=== PATIENT | female | born 1985 | race Caucasian/White ===

== ENCOUNTER 2024-09-15 00:23 | Outpatient (CLI) | payer MEDICAID, SELFPAY ==
--- OUTSIDE RECORDS SUMMARY | 2024-09-15 00:24 | XMS_ITS | Encounter Summary ---
Author Organization [facility] Address [address] [place] [address] Care Team Providers Care Non Profit Job Titles Name Role Phone Mary Montana MD Unavailable Livier Valdez NP Primary Care Provider [phone] Encounter Details Date Type Department Care Team (Late st Contact Info) Description 03/18/2024 17:45 EDT Phlebotomy Only [facility] - Outpatient Phlebotomy Drawing [address] [place] [address] Lab, [facility] Op Phlebotomy Abnormal level of hormones in specimens from oth org/tiss; Vitamin D deficiency disease Social History Tobacco Use Types Packs/Day Years Used Date Smoking Tobacco: Former Smokeless Tobacco: Never Alcohol Use Standard Drinks/Week Comments Not Currently 0 (1 standard drink = 0.6 oz pur e alcohol) 1 x pr wk prior to Hunger Vital Sign Answer Date Recorded Worried About Running Out of Food in the Last Ye ar Never true 11/11/2019 Ran Out of Food in the Last Year Never true 11/11/2019 PRAPARE - Transportation Answer Date Re corded Lack of Transportation (Medical) No 11/11/2019 Lack of Transportation (Non-Medical) No 11/11/2019 Interpersonal Safety Answer Date Record ed Physically Hurt Never 03/12/2020 Verbally Threaten Not on file 03/12/2020 Comments No Sex and Gender Information Value Date Recorded Sex Assigned at Not on file Legal Sex Female 18:26 EST Gender Identity Female 10/03/2019 12:19 EST Sexual Orientation Not on file documented as of this encounter Functional Status * Are you deaf or do you have serious difficulty hearing? Answer Date of Assessment Author No 06/20/2023 8:46 EST Parish Edmonds RN * Because of a physical, mental, or emotional condition, does this person have difficulty doing errands alone such as visiting a doctor's office or shopping? Answer Date of Assessment Author No 05/04/2019 14:18 EDT documented as of this encounter Mental Status * Because of a physical, mental, or emotional condition, does this person have serious difficulty concentrating, remembering, or making decisions? Answer Entry Date Author No 05/04/2019 14:18 EDT documented in this encounter Plan of Treatment Not on file documented as of this encounter Procedures Procedure Name Priority Date/Time Associated Diagnosis Comments VITAMIN D (25,OH) Routine 03/18/2024 16: 46 EDT Vitamin D deficiency disease T3 FREE Routine 03/18/2024 16:46 EDT Abnormal level of hormones in specimens from ot org/tiss TSH Routine 03/18/2024 16:46 EDT Abnormal level of hormones in specimens from ot org/tiss T4 FREE Routine 03/18/2024 16:46 EDT Abnormal level of hormones in specimens from ot org/tiss documented in this encounter Results * VITAMIN D (25,OH) (03/18/2024 16:46 EDT) 25OH Vitamin D Tot 33 30 - 100 ng/mL 03/18/2024 17:54 EDT [facility] Blood VENOUS BLOOD / Unknown Venipuncture / Unknown 03/18/2024 16:46 EDT 03/18/2024 17:07 EDT us Livier Valdez NP CHEMISTRY & BLOOD GAS ORDERABLES Final Result [facility] [address] [place] [address] * T3 FREE (03/18/2024 16:46 EDT) T3, Free 3.8 2.8 - 5.3 pg/mL 03/18/2024 21:[address] [facility] Blood VENOUS BLOOD / Unknown Venipuncture / Unknown 03/18/2024 16:46 EDT 03/18/2024 17:07 EDT us Livier Valdez CAREER AND TRANSITION TEACHER CHEMISTRY & BLOOD GAS ORDERABLES Final Result [facility] [address] [place] [address] * T4 FREE (03/18/2024 16:46 EDT) T4, Free 1.0 0.8 - 2.2 ng/dL 03/18/2024 17:54 EDT [facility] Blood VENOUS BLOOD / Unknown Venipuncture / Unknown 03/18/2024 16:46 EDT 03/18/2024 17:07 EDT us Livier Valdez CAREER AND TRANSITION TEACHER CHEMISTRY & BLOOD GAS ORDERABLES Final Result [facility] [address] [place] [address] * TSH (03/18/2024 16:46 EDT) Pathologist [facility] TSH 1.13 0.47 - 4.68 mIU/L 03/18/2024 18:07 EDT [facility] Blood VENOUS BLOOD / Unknown Venipuncture / Unknown 03/18/2024 16:46 EDT 03/18/2024 17:07 EDT Narrative [facility] - 03/18/2024 18:07 EDT The results of this assay can be falsely lowered due to the consumption of Biotin. us Livier Valdez CAREER AND TRANSITION TEACHER CHEMISTRY & BLOOD GAS ORDERABLES Final Result [facility] [address] [place] [address] documented in this encounter Visit Diagnoses Diagnosis Abnormal level of hormones in specimens from oth org/tiss Vitamin D deficiency disease Unspecified vitamin D deficiency documented in this encounter Care Teams Non Profit Job Titles Relationship Specialty Start Date End Date Livier Valdez, MARLINE [address] [place], [place] [address] PCP - General Family Medicine - Primary Care 10/28/22 Mary Montana MD [address] [place] [phone] 03/25/19 documented as of this encounter
--- OUTSIDE RECORDS SUMMARY | 2024-09-15 00:24 | XMS_ITS | Referral Summary ---
Author Organization [facility] Address [address] [place] [address] Care Team Providers Care Associate Professor Of History Name Role Phone Mary Montana MD Unavailable Livier Valdez ATMOSPHERIC TECHNICIAN Primary Care Provider [phone] Encounters Date Type Department Care Team Description 08/26/2024 Documentation Visit [facility] [address] [place] [address] Brynn Marte, ZEUS 07/14/2024 16:00 EST Procedure visit [facility] [address] [place] [address] Harsh Khan MD Right wrist pain (Primary Dx) from Last 3 Months Allergies Active Allergy Reactions Criticality Noted Date Comments Amantadine 03/17/2019 Other reaction(s): rash and fever Amitriptyline 03/17/2019 Other reaction(s): drowsiness Bupropion Other (See Comments) Medium 06/23/2023 Other Reaction(s): Other (See Comments) Doxycycline Other (See Comments) 06/12/2023 Vasculitis Penicillin 03/17/2019 Other reaction(s): hives/fever Medications lactobacillus rhamnosus, GG, (CULTURELLE) 10 billion cell capsule Take 1 Capsule by mouth daily. Active methylphenidate HCl (RITALIN;METHYL IN) 5 mg tablet Take 2 Tablets by mouth daily. Patient reports 20mg Active hydrOXYzine (ATARAX) 10 mg tablet Take 1 Tablet by mouth 3 times daily as needed for Itching. Active omeprazole (PRILOSEC) 20 mg capsule Take 1 Capsule by mouth daily. Take while on prednisone 15 Capsule 3 Active Additional Information Patient not taking.Reported on 10/01/2023 predniSONE (DELTASONE) 10 mg tablet 6tab/d x 5d, 5tab/d x 5days, 4tab/d x 5days, 3tab/d x 5days, 2tab/d x 5 days, 1tab/d x 5days then stop. 105 Tablet 3 Active Additional Information Patient not taking.Reported on 10/01/2023 Calcium-Choleca lciferol, D3, (CALCIUM 500 + D) 500 mg-10 mcg (400 unit) tablet Take 2 Tablets by mouth daily. 60 Tablet 11 3 Active Additional Information Patient not taking.Reported on 11/05/2023 sulfamethoxazol e-trimethoprim (BACTRIM/CO-TRI MOXAZOLE DS) 800-160 mg per tablet Take 1 Tablet by mouth 2 times daily. 42 Tablet 3 Active Additional Information Patient not taking.Reported on 10/01/2023 Multivitamins with Minerals tablet tablet Take 1 Tablet by mouth daily. Active magnesium oxide (MAG-OX) 400 mg (241.3 mg magnesium) tablet Take 1 Tablet by mouth daily. Active Active Problems Problem Noted Date Diagnosed Date Eczema 10/30/2022 Obesity 01/01/2022 Hyperglycemia 04/17/2021 Fatty (change of) liver, not elsewhere classifie d 12/13/2020 Herpes zoster oticus 11/15/2019 Supervision of high risk in first trim olga 11/15/2019 Overview (11/22/2019): Datin06/09/2020, by Ultrasound 1. AMA-interested in genetic testing (both cell free DNA based testing and Carrier screen) 2. IVF (Pt has BTL) 3. Prior PPROM at 35 weeks followed by a 38 week delivery in second - She declines MFM consult or progesterone. Plan to check CL with 20 week us. 4. Cervical procedure (Laser vaporization of cervix)- check CL with 20 week u/s. She declines check CL prior to 20 weeks 5. H/o Abdominoplasty-2012 6. Obesity (BMI 33)-she declines nutrition consult since she already had one. Early 1hr PC. 7. Subchorionic hemorrhage to the left of the gestational sac measuring 2.1cm at 10 weeks, asymptomatic. IVAP labs: X blood type, antibody scr X; X/X/X: Hep B X; HIV X; RPR X; Hep C X; RX; VX; Urine C&S X; UA X; GC/CT X; last pap X [ ] reviewed by provider Pertinent positives: [ x ] PreE risks reviewed, start baby ASA at 12 weeks Genetic Screening: [x ] cfDNA (ordered) Kit and Paperwork sent to the lab. 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 Hyperlipidemia 01/12/2013 Social History Tobacco Use Types Packs/Day Years Used Date Smoking Tobacco: Former Smokeless Tobacco: Never Tobacco Cessation:Counseling Given: Not Answered Alcohol Use Standard Drinks/Week Comments Not Currently [...] 12:19 EST Sexual Orientation Not on file Last Filed Vital Signs Vital Sign Reading Time Taken Comments Blood Pressure 132/79 06/14/2024 1130 EST Pulse 89 06/14/2024 0917 EST Temperature 36.8 ??C (98.3 ??F) 06/14/2024 0917 EST Respiratory Rate 18 06/14/2024 0917 EST Oxygen Saturation 97% 06/14/2024 1000 EST Inhaled Oxygen Concentration - - Weight 90.7 kg (200 lb) 06/20/2023 0848 EST Height 165.1 cm (5' 5) 06/16/2023 1730 EST Body Mass Index 33.28 06/16/2023 1730 EST Functional Status * Are you deaf or do you have serious difficulty hearing? Answer Date of Assessment Author No 03/21/2024 15:24 EDT Me patricia Mcdonald RN * Because of a physical, mental, or emotional condition, does this person have difficulty doing errands alone such as visiting a doctor's office or shopping? Answer Date of Assessment Author No 05/04/2019 14:18 EDT Mental Status * Because of a physical, mental, or emotional condition, does this person have serious difficulty concentrating, remembering, or making decisions? Answer Entry Date Author No 05/04/2019 14:18 EDT Plan of Treatment Not on file Medical Devices Implanted Type Area Practice Or Student Teacher Device Identifier Shelf Expiration Date Model / Serial / Lot Mirena Iud-Mr Safe Description:Non metallic per [employer]; RD 01/23/24 Procedures Procedure Name Priority Date/Time Associated Diagnosis Comments EMG/NERVE CONDUCTION STUDY Routine/Next Available 07/14/2024 16:00 EST Right wrist pain HEPATITIS C AB W REFLEX TO HCV RNA BY PCR Routine 06/17/2023 11:27 EST Rash from Last 3 Months or Most Recently Relevant to Health Maintenance Results * EMG/NERVE CONDUCTION STUDY (07/14/2024 16:00 EST) Narrative [facility] - 07/14/2024 16:00 EST Harsh Khan MD ? 07/14/2024 16:19 [facility] Clinical Neurophysiology Nerve Conduction and Electromyography Report PATIENT NAME: Jonathon Hall PATIENT : 1985 PCP: ??Livier Valdez DATE OF SERVICE: 07/14/2024 History: Jonathon Hall is a 39 y.o. female who presents on referral by LAKSHMI Hernandez* for evaluation of right hand symptoms. She describes a dull aching pain with use of the right wrist, worse with lifting heavy objects such as participating in [employer] games. No numbness or tingling in the hand. Exam: Limbs studied were warmed if necessary with moist heat, and skin temperature of the hands was measured at 33 deg C before starting the study. Motor: Normal bulk, tone and strength in the right hand and arm DTRs: Trace right brachioradialis, biceps and triceps Sensation: Intact pinprick in the right hand and arm Electrodiagnostic Findings: Nerve Conduction: -All nerves examined were normal including the right median sensory and motor responses, right ulnar sensory and motor responses and right radial superficial sensory response. EMG: -All muscles examined were normal including the right biceps, triceps, pronator teres, extensor digitorum communis and first dorsal interosseous For waveforms/values/tables of EMG/nerve conduction study please see accompanying scanned document in the scans tab in EMR. Electrodiagnostic Impression: - This study was normal. ??There is no electrodiagnostic evidence of right cervical radiculopathy, or median or ulnar neuropathy. Harsh Khan MD Eduin Hicks PA-C PROCEDURE/MINOR SURGICA L ORDERABLES Final Result [facility] * HEPATITIS C AB W REFLEX TO HCV RNA BY PCR (06/17/2023 11:27 EST) Hep C Antibody Negative Negative 06/17/2023 13:17 EST [facility] Blood VENOUS BLOOD / Unknown Venipuncture / Unknown 06/17/2023 11:27 EST 06/17/2023 11:54 EST Gary Virgen MD CHEMISTRY & BLOOD GAS ORDERA BLES Final Result [facility] [address] [place] [address] from Last 3 Months or Most Recently Relevant to Health Maintenance Insurance MEDICAID [facility] [place] Advance Directives For more information, please contact: [phone] * Full Code (Latest Code Status on File) Date Activated Date Inactivated Comments 09/17/2019 9:27 09/19/2019 2:04 Question Answer Comments Reason for decision includes: Full code consistent with overall plan of care Who participated in the discussion? Not Discusse d Care Teams Associate Professor Of History Relationship Specialty Start Date End Date Livier Valdez, ATMOSPHERIC TECHNICIAN [address] [place] [address] PCP - General Family Medicine - Primary Care 10/28/22 Mary Montana MD [address] [place] [phone] 03/25/19
--- OUTSIDE RECORDS SUMMARY | 2024-09-15 00:24 | XMS_ITS | Encounter Summary ---
Author Organization [facility] Address [address] [place] [address] Care Team Providers Care Echocardiograph Tech Name Role Phone Mary Montana MD Unavailable Livier Valdez DIRECTOR OF RADIO SERVICES Primary Care Provider [phone] Encounter Details Date Type Department Care Team (Late st Contact Info) Description 03/18/2024 Community Orders [facility] [address] [place] [address] Livier Valdez, DIRECTOR OF RADIO SERVICES [address] [place] [address] Abnormal level of hormones in specimens from oth org/tiss (Primary Dx); Vitamin D deficiency disease Social History Tobacco [...] on file documented as of this encounter Results * VITAMIN D (25,OH) (03/18/2024 16:46 EDT) 25OH Vitamin D Tot 33 30 - 100 ng/mL 03/18/2024 17:54 EDT [facility] Blood VENOUS BLOOD / Unknown Venipuncture / Unknown 03/18/2024 16:46 EDT 03/18/2024 17:07 EDT us Livier Valdez DIRECTOR OF RADIO SERVICES CHEMISTRY & BLOOD GAS ORDERABLES Final Result Performing Organization Address [facility] Co de Phone Number [facility] [address] [place] [address] * T3 FREE (03/18/2024 16:46 EDT) T3, Free 3.8 2.8 - 5.3 pg/mL 03/18/2024 21:51 EDT [facility] Blood VENOUS BLOOD / Unknown Venipuncture / Unknown 03/18/2024 16:46 EDT 03/18/2024 17:07 EDT us Livier Valdez DIRECTOR OF RADIO SERVICES CHEMISTRY & BLOOD GAS ORDERABLES Final Result [facility] [address] [place], [place] [address] * T4 FREE (03/18/2024 16:46 EDT) T4, Free 1.0 0.8 - 2.2 ng/dL 03/18/2024 17:54 EDT [facility] Blood VENOUS BLOOD / Unknown Venipuncture / Unknown 03/18/2024 16:46 EDT 03/18/2024 17:07 EDT us Livier Valdez DIRECTOR OF RADIO SERVICES CHEMISTRY & BLOOD GAS ORDERABLES Final Result Performing Organization Address [facility] Co de Phone Number [facility] [address] [place] [address] * TSH (03/18/2024 16:46 EDT) Pathologist [facility] [place] TSH 1.13 0.47 - 4.68 mIU/L 03/18/2024 18:07 EDT [facility] Blood VENOUS BLOOD / Unknown Venipuncture / Unknown 03/18/2024 16:46 EDT 03/18/2024 17:07 EDT Narrative [facility] - 03/18/2024 18:07 EDT The results of this assay can be falsely lowered due to the consumption of Biotin. us Livier Valdez DIRECTOR OF RADIO SERVICES CHEMISTRY & BLOOD GAS ORDERABLES Final Result Performing Organization Address [facility] Co de Phone Number [facility] [address] [place] [phone] documented in this encounter Visit Diagnoses Diagnosis Abnormal level of hormones in specimens from oth org/tiss- Primary Vitamin D deficiency disease Unspecified vitamin D deficiency documented in this encounter Care Teams Echocardiograph Tech Relationship Specialty Start Date End Date Livier Valdez, MARLINE [address] [place] [id number] PCP - General Family Medicine - Primary Care 10/28/22 Mary Montana MD [address] [place] [phone] 03/25/19 documented as of this encounter
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
--- OUTSIDE RECORDS SUMMARY | 2024-09-15 00:24 | XMS_ITS | Encounter Summary ---
Author Organization [facility] Address [address] [place] [address] Care Team Providers Care Traffic Maintenance Officer Name Role Phone Mary Montana MD Unavailable Livier Valdez COMMUNITY SERVICE OFFICER Primary Care Provider [phone] Reason for Visit * Reason Comments Vaginal Bleeding Pt presents with vag inal bleeding. 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 She is currently trying to be a surrogate & had an U/S on Friday that informed her she had retained uterine products. Pt reports she started bleeding yesterday like a normal period. This AM she reports profuse bleeding with passage of a palm-sized clot. Endorses suprapubic cramping & dizziness. Encounter Details Date Type Department Care Team (Late st Contact Info) Description 06/14/2024 9:12 EST - 06/14/2024 13:09 EST Emergency [facility] [place] [facility] [address] [place] [address] Huang Brantley MD [address] [place] [address] Vaginal bleeding (Primary Dx); Endometrial mass Discharge Disposition: Home or Self Care Social [...] EST Inhaled Oxygen Concentration - - Weight - [...] this encounter Discharge Instructions * Discharge Instructions* Huang Brantley MD - 06/14/2024 12:45 EST As we discussed the tissue that you passed has been sent to the pathology department and will be analyzed. This will take some time and may take a few days. It is going to be very important to have your dependency counselor at [facility] or the reproductive specialist in [place] follow-up on these results. We will attempt to call you as well. I have had the heart from today's visit faxed to the GENERAL UTILITY MAINTENANCE REPAIRER clinic at [facility]. I have also asked our radiology team to work on getting a copy of the ultrasound to your reproductive specialist. Please arrange follow-up with one of your GENERAL UTILITY MAINTENANCE REPAIRER clinicians as soon as possible. Return to the ER for any worsening such as heavy bleeding more than 2 pads an hour for 2 hours in arow feeling lightheaded, severe abdominal pain, or fevers. documented in this encounter Medications at Time [...] Means Destination Comment s Home or Self Group Home documented in this encounter ED Notes * Huang Brantley MD - 06/14/2024 0907 EST Emergency Department Visit Medical Decision Making 39-year-old G4, P3 SAB 1 presenting today with some heavy vaginal bleeding that has improved after passing a piece of soft tissue. Patient notes abnormal uterine ultrasound on Friday at fertility clinic details as below. Bleeding is decreased down to a trickle and is more consistent with her normal chronic vaginal bleeding over the last few months. She does not appear to be anemic. She is hemodynamically normal. Labs notable for a negative screen. Hemoglobin is 13.7. Blood type is O+. Pelvic ultrasound obtained: IMPRESSION 1. Minimally heterogeneous endometrium measures 13.6 mm. No focal lesion detected. 2. Mildly heterogeneous myometrial echotexture, possibly reflecting adenomyomatosis.. Patient continues to feel well. No significant bleeding at this time. Soft tissue has been sent to pathology for further evaluation. Patient was informed that this may take a few days to be finalized. I have spoken with radiology to have the imaging studies transferred to her fertility clinic. She will need to also have the pathology results transferred and will need to talk to medical records about that. See discharge instructions Medical Decision Making Problems Addressed: Endometrial mass: complicated acute illness or injury Vaginal bleeding: complicated acute illness or injury Amount and/or Complexity of Data Reviewed Labs: ordered. Radiology: ordered. Final diagnoses: Vaginal bleeding Endometrial mass Disposition: Discharged Chief complaint: Vaginal bleeding HPI Jonathon Hall is a 39 y.o. SAB 1 at 19 weeks who presents emergency department today for evaluation of vaginal bleeding. Patient states that she has had very irregular periods since an IUD was removed with near constant bleeding. She is currently being evaluated to be a surrogate. She hadan evaluation at a fertility clinic in [place] on Friday that included a saline infusion ultrasound. She reports that this showed an abnormal mass within the endometrium concerning for retained placenta. Patient notes however that her last was 4 years ago. She notes that the dependency counselor performed an endometrial biopsy. This morning the patient reports that her vaginal bleeding became very heavy and then she passed a piece of soft tissue. She has brought that tissue wrapped in paper towels in the [facility]. It is adair-colored flat irregular surface and measures more than 10 cm long by a few centimeters wide. Patient notes that since passing that tissue her bleeding has slowed to a trickle. When she was passing the tissue she had some cramping but that has passed as well. She has not felt lightheaded or dizzy. Shehas not had any fevers or chills. Patient is normally followed by gynecology at [facility]. History was provided by: Patient Patient's pertinent PMH, FH, SH were reviewed and edited as necessary. Nursing notes reviewed. A medical screening exam was performed. Physical Exam BP 132/79 Pulse 89 Temp 36.8 ??C (98.3 ??F) (Oral) Resp 18 SpO2 97% Physical Exam Const: Patient resting comfortably in no acute distress Head: Atraumatic. Normocephalic. Eyes: No injection. Conjunctiva well-perfused. No discharge. Neck: Normal range of motion. Pulm: No respiratory distress. Clear to auscultation bilaterally. CV: Regular rhythm and rate. No murmur rub or gallop. Abdomen: Mildly obese. Soft nontender abdomen. Musculoskeletal: No deformity. Moving all 4 extremities. Neuro: Alert. Speech is clear. Procedures Procedures documented in this encounter Plan of Treatment Not on file documented as of this encounter Procedures Procedure Name Priority Date/Time Associated Diagnosis Comments SURGICAL PATHOLOGY Routine 06/14/2024 12 :00 EST Vaginal bleeding Endometrial mass US PELVIS TRANSVAGINAL COMPLETE STAT 06/14/2024 10:40 EST HOLD GREEN TOP Routine 06/14/2024 9:29 EST HOLD BLUE TOP Routine 06/14/2024 9:29 EST BHCG SCREEN, STAT 06/14/2024 9:28 EST COMPLETE BLOOD COUNT AND DIFFERENTIAL STAT 06/14/2024 9:28 EST TYPE AND SCREEN STAT 06/14/2024 9:28 EST BASIC METABOLIC PANEL (BMP) STAT 06/14/2024 9:28 EST documented in this encounter Results * SURGICAL PATHOLOGY (06/14/2024 12:00 [facility]) Note to Patient The following pathology results have been interpreted by your pathologist and may be available to you before your health provider has had the opportunity to review them. Please allow time for your provider to receive these results and explore management options, if applicable. 06/15/2024 15:53 [facility] Final Diagnosis A. VAGINA, PASSED SOFT TISSUE FRAGMENT: - Features consistent with a benign endometrial polyp with stromal progestin effect and features of early hemorrhagic necrosis. - Negative for hyperplasia and atypia. 06/15/2024 15:53 [facility] Attestation By the signature below, the attending physician certifies that they have 1) personally conducted a gross and/or microscopic examination of the described specimen(s), and/or personally interpreted the results of laboratory testing of the described specimen(s), and 2) personally rendered or confirmed the above diagnosis. 06/15/2024 15:53 [facility] at 1553 Clinical History 39-year-old G4, P3 last 4 years ago. She had abnormal ultrasound on Friday showing irregular mass within the endometrium. Patient passed the mass this morning with vaginal bleeding. She has brought soft tissue mass from home. 06/15/2024 15:53 [facility] Gross Description A. Received fresh and subsequently placed in formalin with, Nahoami L Isabel and, vagina and consists of an irregularly shaped (propeller shaped) portion of nodular, roughened adair-pink to red possible mucosal tissue, 11.0 x 7.5 x 0.9 cm. There is a 2.0 x 1.1 cm superficially disrupted area which is inked black. The cut surface is cystic with a smooth inner lining. Sheriff sections are submitted in A1-A4 (disrupted area in A1). LAKSHMI RUBIN(ASCP) 06/14/2024 12:13 06/15/2024 15:53 [facility] Performing Lab [facility] 12/2023 15:53 [facility] Scanned Images 06/15/2024 15:53 EST [facility] Tissue VAGINAL STRUCTURE / Unknown Collection, Other / Unknown 06/14/2024 12:00 EST 06/14/2024 12:09 EST us Huang Brantley MD PATHOLOGY ORDERABLES Gissell bradley Result [facility] [address] [place] [address] * US PELVIS TRANSVAGINAL COMPLETE (06/14/2024 10:40 EST) Anatomical Region Laterality Modality Pelvis Ultrasound 06/14/2024 11:0 8 EST Impressions 06/14/2024 11:08 EST 1. Minimally heterogeneous endometrium measures 13.6 mm. No focal lesion detected. 2. Mildly heterogeneous myometrial echotexture, possibly reflecting adenomyomatosis.. [id number] Narrative 06/14/2024 11:08 EST US PELVIS TRANSVAGINAL COMPLETE ?? Signs and Symptoms/Comments: ??Vaginal bleeding after biopsy. ??Reportedly with retained products Comparison: 06/12/2023 Technique: Pelvic Ultrasound - Transvaginal approach was performed. FINDINGS: Uterus: ?? Orientation: retroverted Size: 7.2 cm x 5.5 cm x 6.6 cm Findings: Mildly heterogeneous myometrial echotexture, possibly reflecting adenomyomatosis. Cervix: Normal. Endometrium: Findings: Minimally heterogeneous. Thickness: 13.6 mm Premenopausal (per patient) Ovaries: ?? Right ovary: Size: 2.2 cm x 1.4 cm x 1.6 cm. Volume: 2.8 cc. Doppler flow: Color Doppler flow is grossly present, however waveforms were not assessed. Findings: None. Left ovary: Size: 3.0 cm x 1.3 cm x 3.2 cm. Volume: 6.3 cc. Doppler flow: Color Doppler flow is grossly present, however waveforms were not assessed. Findings: None. Cul-de-sac: Trace anechoic free fluid, likely physiologic. Resulting Agency Comment [id number] Procedure Note Charlie Valdez MD - 06/14/2024 US PELVIS TRANSVAGINAL COMPLETE Signs and Symptoms/Comments: Vaginal bleeding after biopsy. Reportedlywith retained products Comparison: 06/12/2023 Technique: Pelvic Ultrasound - Transvaginal approach was performed. FINDINGS: Uterus: Orientation: retroverted Size: 7.2 cm x 5.5 cm x 6.6 cm Findings: Mildly heterogeneous myometrial echotexture, possibly reflectingadenomyomatosis. Cervix: Normal. Endometrium: Findings: Minimally heterogeneous. Thickness: 13.6 mm Premenopausal (per patient) Ovaries: Right ovary: Size: 2.2 cm x 1.4 cm x 1.6 cm. Volume: 2.8 cc. Doppler flow: Color Doppler flow is grossly present, however waveformswere not assessed. Findings: None. Left ovary: Size: 3.0 cm x 1.3 cm x 3.2 cm. Volume: 6.3 cc. Doppler flow: Color Doppler flow is grossly present, however waveformswere not assessed. Findings: None. Cul-de-sac: Trace anechoic free fluid, likely physiologic. IMPRESSION 1. Minimally heterogeneous endometrium measures 13.6 mm. No focal lesiondetected. 2. Mildly heterogeneous myometrial echotexture, possibly reflectingadenomyomatosis.. [id number] us Huang Brantley MD IMG US OB ORDERABLES Gissell l Result * HOLD BLUE TOP (06/14/2024 9:29 EST) Hold Hold 06/14/2024 10:46 EST [facility] Blood VENOUS BLOOD / Unknown Venipuncture / Unknown 06/14/2024 9:29 EST 06/14/2024 9:33 EST us Huang Brantley MD LAB INFO SERVICE AND SUPP ORT & PHONE RESULT Final Result [facility] [address] [place] [address] * HOLD GREEN TOP (06/14/2024 9:29 EST) Hold Hold 06/14/2024 10:46 EST [facility] Blood VENOUS BLOOD / Unknown Venipuncture / Unknown 06/14/2024 9:29 EST 06/14/2024 9:33 EST us Huang Brantley MD LAB INFO SERVICE AND SUPP ORT & PHONE RESULT Final Result Performing Organization Address [facility] Co de Phone Number [facility] [address] [place] [address] * TYPE AND SCREEN (06/14/2024 9:28 EST) Pathologist [facility] ABO O 06/14/2024 10:17 [facility] Rh Factor Positive 06/14/2024 10:17 [facility] Antibody Screen Negative 06/14/2024 10:17 [facility] Specimen Expires: 06/17/2024 @ 23:59 06/14/2024 10:17 [facility] Blood VENOUS BLOOD / Unknown Venipuncture / Unknown 06/14/2024 9:28 EST 06/14/2024 9:32 EST us Huang Brantley MD BLOOD BANK TESTS Edited R esult - Final Performing Organization Address [facility] Co de Phone [facility] BLOOD BANK [address] [place] [address] * BHCG SCREEN, (06/14/2024 9:28 EST) [facility] Beta HCG Qualitative, Negative Negative 06/14/2024 10:42 EST [facility] Blood VENOUS BLOOD / Unknown Venipuncture / Unknown 06/14/2024 9:28 EST 06/14/2024 9:33 EST Huang Brantley MD CHEMISTRY & BLOOD GAS ORD ERABLES Final Result Performing Organization Address [facility]/ZIP Co de Phone [facility] [address] [place] [address] * BASIC METABOLIC PANEL (BMP) (06/14/2024 9:28 EST) Sodium 138 136 - 145 mmol/L 06/14/2024 9:56 [facility] Potassium 4.0 3.5 - 5.0 mmol/L 06/14/2024 9:56 [facility] Chloride 107 96 - 110 mmol/L 06/14/2024 9:56 [facility] CO2 Total 22 22 - 32 mmol/L 06/14/2024 9:56 [facility] Anion Gap 9 5 - 14 mmol/L 06/14/2024 9:56 [facility] Glucose 91 70 - 99 mg/dl 06/14/2024 9:56 [facility] Calcium 9.5 8.5 - 10.5 mg/dL 06/14/2024 9:56 [facility] BUN 11 10 - 26 mg/dL 06/14/2024 9:56 [facility] Creatinine 0.80 0.52 - 1.04 mg/dL 06/14/2024 9:56 [facility] eGFR 95 >60 mL/min/1.73 m2 06/14/2024 9:56 [facility] Blood VENOUS BLOOD / Unknown Venipuncture / Unknown 06/14/2024 9:28 EST 06/14/2024 9:33 EST us Huang Brantley MD CHEMISTRY & BLOOD GAS ORD ERABLES Final Result [facility] [address] [place] [id number] * COMPLETE BLOOD COUNT AND DIFFERENTIAL (06/14/2024 9:28 EST) WBC 8.08 4.00 - 12.40 K/cmm 06/14/2024 9:38 [facility] RBC 5.02 3.86 - 5.04 M/cmm 06/14/2024 9:38 [facility] Hemoglobin 13.7 11.6 - 15.2 g/dL 06/14/2024 9:38 [facility] HCT 41.2 34.9 - 44.4 % 06/14/2024 9:38 [facility] MCV 82 81 - 98 fL 06/14/2024 9:38 [facility] MCH 27.3 26.7 - 33.3 pg 06/14/2024 9:38 [facility] MCHC 33.3 32.1 - 35.9 g/dL 06/14/2024 9:38 [facility] RDW-CV 12.1 <14.7 % 06/14/2024 9:38 [facility] RDW-SD 36.0 <50.4 fl 06/14/2024 9:38 [facility] PLT 302 141 - 377 K/cmm 06/14/2024 9:38 [facility] MPV 9.6 9.5 - 12.7 fL 06/14/2024 9:38 [facility] % Neutrophils 66.2 Not Indicated % 06/14/2024 9:38 [facility] % Lymphocytes 27.2 Not Indicated % 06/14/2024 9:38 [facility] % Monocytes 5.0 Not Indicated % 06/14/2024 9:38 [facility] % Eosinophils 0.9 Not Indicated % 06/14/2024 9:38 [facility] % Basophils 0.5 Not Indicated % 06/14/2024 9:38 [facility] % Immature Grans 0.2 <0.9 % 06/14/2024 9:38 [facility] Absolute Neutrophils 5.35 2.20 - 8.85 K/cmm 06/14/2024 9:38 [facility] Absolute Lymphocytes 2.20 1.09 - 3.30 K/cmm 06/14/2024 9:38 [facility] Absolute Monocytes 0.40 0.10 - 0.80 K/cmm 06/14/2024 9:38 [facility] Absolute Eosinophils 0.07 0.03 - 0.61 K/cmm 06/14/2024 9:38 [facility] ABS Basophils 0.04 0.01 - 0.11 K/cmm 06/14/2024 9:38 [facility] Absolute Immature Grans 0.02 0.00 - 0.06 K/cmm 06/14/2024 9:38 [facility] Type of Differential: Auto 06/14/2024 9:38 [facility] Blood VENOUS BLOOD / Unknown Venipuncture / Unknown 06/14/2024 9:28 EST 06/14/2024 9:33 EST us Huang Brantley MD PACKAGES & DNA PROBE EDGAR AMBROSIO Final Result Performing Organization Address City/State/[facility] Co de Phone Number [facility] [address] [place] [phone] documented in this encounter Visit Diagnoses Diagnosis Vaginal bleeding- Primary Other specified noninflammatory disorder of vagina Endometrial mass Other specified symptom associated with female genital organs documented in this encounter Care Teams Traffic Maintenance Officer Relationship Specialty Start Date End Date Livier Valdez COMMUNITY SERVICE OFFICER [address] [place] [phone] PCP - General Family Medicine - Primary Care 10/28/22 Mary Montana MD [address] [place] [phone] 03/25/19 documented as of this encounter
--- OUTSIDE RECORDS SUMMARY | 2024-09-15 00:24 | XMS_ITS | Clinical Summary ---
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 [address] [place] [address] Harsh Khan MD Right wrist pain (Primary Dx) from Last 3 Months Surgical History Surgery Date Site/Laterality Comments CERVIX SURGERY ABDOMINOPLASTY BREAST ENHANCEMENT SURGERY TUBAL LIGATION ROTATOR CUFF REPAIR Right Medical History Medical History Date Comments Back pain upper back pain, (when did this problem start?) 3 yrs ago Abnormal Pap smear of cervix Adhd Family History Medical History Relation Comments Cancer Maternal Grandmother Coronary Artery Disease Maternal Grandmother Diabetes Maternal Grandmother Cancer Paternal Grandfather Diabetes Paternal Grandmother Cancer Sister Diabetes Sister Relation Status Comments Maternal Grandmother breast canc er, diagnosed in her 60's Paternal Grandfather Lung cancer Paternal Grandmother Sister leukemia Social History Tobacco Use Types Packs/Day Years [...] 12:19 EST Sexual Orientation Not on file Obstetrics History Para Term AB IAB SAB Ectopic Multiple Livin g Live Births 4 3 2 1 1 0 1 0 0 3 3 Date Outcome GA Total Labor Labor/2nd/3rd Weight Sex Type Anes PTL Hetal A1 A5 Name Clin 2003 35w 0d 36h 00m 2637 g (5 lb 13 oz) F Induct ion Epidur al N Livin g Dylan Barron s Complications:Premature rupt ure of membranes (PROM) affecting first Delivery Location:[facility] Comments:Pt with PROM, was induced 4 SAB 2005 Term 38w 0d 12h 00m 3515 g (7 lb 12 oz) F Induct ion Epidur al N Livin g Zakia Moses s Delivery Location:[facility] Comments:6 cm dilated at 38 wks not in labor 2019 Term 39w 3d M Skye davis Delivery Location:[place] Last Filed Vital Signs Vital Sign Reading [...] Body Mass Index 33.28 06/16/2023 1730 EST Plan of Treatment Health Maintenance Due Date Last Done Comments Hepatitis B Vaccine (1 of 3 - 19+ 3-dose series) 03/05 COVID-19 Vaccine (2023- season) 2024 Hepatitis C Screen Completed 06/17/2023 Medical Devices Implanted Type Area Magnetic Tester Device Identifier Shelf Expiration Date Model / Serial / Lot Mirena Iud-Mr Safe Description:Non metallic per [employer]; RD 01/23/24 Procedures Procedure Name Priority Date/Time Associated Diagnosis Comments EMG/NERVE CONDUCTION STUDY Routine/Next Available 07/14/2024 16:00 EST Right wrist pain HEPATITIS C AB W REFLEX TO HCV RNA BY PCR Routine 06/17/2023 11:27 EST Rash from Last 3 Months or Most Recently Relevant to Health Maintenance Results * EMG/NERVE CONDUCTION STUDY (07/14/2024 16:00 EST) Narrative [facility] - 07/14/2024 16:00 EST Harsh Khan MD ? 07/14/2024 16:19 [facility] Clinical Neurophysiology Nerve Conduction and [...] lifting heavy objects such as participating in Criptext games. No numbness or tingling in the [...] median or ulnar neuropathy. Harsh Khan MD us Eduin Hicks PA-C PROCEDURE/MINOR SURGICA L ORDERABLES Final Result [facility] * HEPATITIS C AB W REFLEX TO HCV RNA BY PCR (06/17/2023 11:27 EST) Hep C Antibody Negative Negative 06/17/2023 13:17 EST [facility] Blood VENOUS BLOOD / Unknown Venipuncture / Unknown 06/17/2023 11:27 EST 06/17/2023 11:54 EST us Gary Virgen MD CHEMISTRY & BLOOD GAS ORDERA BLES Final Result [facility] [address] [place] [address] from Last 3 Months or Most Recently Relevant to Health Maintenance Insurance MEDICAID [employer] [facility] Address: [address] [address] MEDICAID [facility] Address: [address] [place] [id number] MEDICAID [facility] Address: [address] [address] Advance Directives For more information, please contact: [phone] * Full Code (Latest Code Status on File) Date Activated Date Inactivated Comments 09/17/2019 9:27 09/19/2019 2:04 Question Answer Comments Reason for decision includes: Full code consistent with overall plan of care Who participated in the discussion? Not Discusse d Care Teams Videotape Recording Engineer Relationship Specialty Start Date End Date Livier Valdez NP [address] [place] [phone] PCP - General Family Medicine - Primary Care 10/28/22 Mary Montana MD [address] [place] [phone] 03/25/19
--- OUTSIDE RECORDS SUMMARY | 2024-09-15 00:24 | XMS_ITS | Encounter Summary ---
Author Organization [facility] Address [address] [place] [address] Care Team Providers Care Stock Clerk Name Role Phone Mary Montana MD Unavailable Livier Valdez FINANCIAL REPORT SERVICE SALES AGENT Primary Care Provider [phone] Encounter Details Date Type Department Care Team (Late st Contact Info) Description 08/26/2024 Documentation Visit [facility] Rehabilitation Therapy [address] [place] [address] Brynn Marte, PT [address] [place] [address] Social History Tobacco Use Types Packs/Day Years [...] 05/04/2019 14:18 EDT documented in this encounter Progress Notes * Brynn Marte, PT - 08/26/2024 1254 EST [facility] Outpatient Rehabilitation Services [phone] Physical Therapy Discharge Not Seen Recently 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 Eason Reporting Period: 12/11/23 Physical Therapy Program to Date: In summary, the program has included: MDT Goal Review: Short-Term Goals Timeframe: 01/01/24 Nahoami will report no more than 2/10 pain at rest to improve concentration. Nahoami will report decreased headache frequency to improve concentration. Long-Term Goals Timeframe: 01/22/24 Nahoami will tolerate chewing a bagel with minimal pain. Discharge Reason: None known Discharge patient at this time. Future therapy will require a new episode of care. documented in this encounter Plan of Treatment Not on file documented as of this encounter Visit Diagnoses Not on filedocumented in this encounter Care Teams Stock Clerk Relationship Specialty Start Date End Date Livier Valdez NP [address] [place] [address] PCP - General Family Medicine - Primary Care 10/28/22 Mary Montana MD [address] [place] [phone] 03/25/19 documented as of this encounter
--- OUTSIDE RECORDS SUMMARY | 2024-09-15 00:24 | XMS_ITS | Encounter Summary ---
Author Organization [facility] Address [address] [place] [address] Care Team Providers Care Delivery Stock Clerk Name Role Phone Mary Montana MD Unavailable Livier Valdez EPIC BEACON ANALYST Primary Care Provider [phone] Reason for Referral * Radiology Services (Routine/Next Available) - Authorization Not Required Specialty Diagnoses / Procedures Referred By Contac t Referred To Contact Diagnoses Nontoxic single thyroid nodule Procedures US THYROID/NECK Livier Valdez NP [address] [place] [address] Phone: tel: fax: [facility] Referral ID Status Reason Start Date Expiration Date Visits Requested Visits Authorized [id number] Authorization Not Required 11/12/2023 1 1 Reason for Visit * Radiology Services (Routine/Next Available) - Authorization Not Required Specialty Diagnoses / Procedures Referred By Contac t Referred To Contact Diagnoses Nontoxic single thyroid nodule Procedures US THYROID/NECK Livier Valdez NP [address] [place] [address] Phone: tel: fax: [facility] Referral ID Status Reason Start Date Expiration Date Visits Requested Visits Authorized [id number] Authorization Not Required 11/12/2023 1 1 Encounter Details Date Type Department Care Team (Latest Contact Info) Description 03/18/2024 16:40 EDT - 03/18/2024 23:59 EDT Hospital Encounter [facility] Ultrasound [address] [place] [address] Nontoxic single thyroid nodule Discharge Disposition: Home or Self Care Social [...] 05/04/2019 14:18 EDT documented in this encounter Medications at Time [...] Discharge Disposition Disposition Code Departure Means Destination Home or Self Care documented in this encounter Plan of Treatment Not on file documented as of this encounter Procedures Procedure Name Priority Date/Time Associated Diagnosis Comments US THYROID/NECK Routine 03/18/2024 17:00 EDT Nontoxic single thyroid nodule documented in this encounter Results * US THYROID/NECK (03/18/2024 17:00 EDT) Anatomical Region Laterality Modality Neck Ultrasound 03/18/2024 17:0 0 EDT Impressions 03/21/2024 8:32 EDT Thyroid nodule as described above. COMMENTS: 1. ?? Recommendations for TI-RADS scores are listed below for reference. (See Reference: Diamond) 2. ?? TI-RADS 1, Benign. 0 points: No fine needle aspiration (FNA) or follow-up ultrasound recommended. 3. ?? TI-RADS 2, Not suspicious. 2 points: No FNA or follow-up ultrasound recommended. 4. ?? TI-RADS 3, Mildly suspicious. 3 points: FNA if equal or greater than 2.5 cm. Follow-up ultrasound if 1.5 to 2.4 cm in 1, 3, and 5 years. 5. ?? TI-RADS 4, Moderately Suspicious. 4-6 points: FNA if equal or greater than 1.5 cm. Follow-up ultrasound if 1 to 1.4 cm in 1, 2, 3, and 5 years. 6. ?? TI-RADS 5, Highly Suspicious. 7 points or greater: FNA if equal or greater than 1 cm. Follow-up ultrasound if 0.5 to 0.9 cm every year for 5 years. REFERENCES: Diamond FN, Seth WD, Khoi EG et al. ACR Thyroid Imaging, Reporting and Data System (TI-RADS): White Paper of the ACR TI-RADS Committee. J Am Lissette Radiol. 2017; 14: 587-595. THIS DOCUMENT HAS BEEN ELECTRONICALLY SIGNED BY MELE NOWAK MD FOR ANY QUESTIONS OR CONCERNS REGARDING THIS REPORT PLEASE CALL [facility] AT [phone] Narrative 03/21/2024 8:32 EDT PROCEDURE INFORMATION: Exam: US Soft Tissue Head and Neck, TI-RADS Exam date and time: 03/18/2024 5:00 PM Age: 39 years old Clinical indication: Nontoxic single thyroid nodule; Condition or disease; Thyroid disorder; Cyst; Additional info: Nontoxic thyroid nodule TECHNIQUE: Imaging protocol: Real-time ultrasound scan of the neck with image documentation. Exam focused on the thyroid. COMPARISON: US THYROID/NECK 09/19/2023 1:12 PM FINDINGS: Right thyroid lobe: Right lobe: 5.7 x 1.8 x 1.8 cm. Left thyroid lobe: Left lobe: 5.7 x 1.6 x 1.7 cm. Hypoechoic solid, well-circumscribed nodule with regular margins, wider than tall in the lower polar region of approximately 0.9 x 0.8 x 0.8 cm. Possible microcalcifications. TIRADS 4 versus 5. Isthmus: Not thickened. Procedure Note Mele Nowak MD - 03/21/2024 PROCEDURE INFORMATION: Exam: US Soft Tissue Head and Neck, TI-RADS Exam date and time: 03/18/2024 5:00 PM Age: 39 years old Clinical indication: Nontoxic single thyroid nodule; Condition or disease; Thyroid disorder; Cyst; Additional info: Nontoxic thyroid nodule TECHNIQUE: Imaging protocol: Real-time ultrasound scan of the neck with image documentation. Exam focused on the thyroid. COMPARISON: US THYROID/NECK 09/19/2023 1:12 PM FINDINGS: Right thyroid lobe: Right lobe: 5.7 x 1.8 x 1.8 cm. Left thyroid lobe: Left lobe: 5.7 x 1.6 x 1.7 cm. Hypoechoic solid, well-circumscribed nodule with regular margins, wider than tall in the lower polar region of approximately 0.9 x 0.8 x 0.8 cm. Possible microcalcifications. TIRADS 4 versus 5. Isthmus: Not thickened. IMPRESSION Thyroid nodule as described above. COMMENTS: 1. Recommendations for TI-RADS scores are listed below for reference. (See Reference: Diamond) 2. TI-RADS 1, Benign. 0 points: No fine needle aspiration (FNA) or follow-up ultrasound recommended. 3. TI-RADS 2, Not suspicious. 2 points: No FNA or follow-up ultrasound recommended. 4. TI-RADS 3, Mildly suspicious. 3 points: FNA if equal or greater than 2.5 cm. Follow-up ultrasound if 1.5 to 2.4 cm in 1, 3, and 5 years. 5. TI-RADS 4, Moderately Suspicious. 4-6 points: FNA if equal or greater than 1.5 cm. Follow-up ultrasound if 1 to 1.4 cm in 1, 2, 3, and 5 years. 6. TI-RADS 5, Highly Suspicious. 7 points or greater: FNA if equal or greater than 1 cm. Follow-up ultrasound if 0.5 to 0.9 cm every year for 5 years. REFERENCES: Capricesler FN, Seth WD, Khoi EG et al. ACR Thyroid Imaging, Reporting and Data System (TI-RADS): White Paper of the ACR TI-RADS Committee. J Am Lissette Radiol. 2017; 14: 587-595. 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
--- OUTSIDE RECORDS SUMMARY | 2024-09-15 00:24 | XMS_ITS | Encounter Summary ---
Author Organization [facility] Address [address] [place] [address] Care Team Providers Care Yardage Control Clerk Name Role Phone Mary Montana MD Unavailable Livier Valdez NP Primary Care Provider [phone] Reason for Referral * Office Procedure (Routine/Next Available) - Closed Specialty Diagnoses / Procedures Referred By Contac t Referred To Contact Neurology Diagnoses Right wrist pain Procedures EMG/NERVE CONDUCTION STUDY Eduin Hicks PA-C [address] [place] [address] Phone: tel: fax: [facility] [address] [place] [address] Phone: tel: fax: Referral ID Status Reason Start Date Expiration Date V isits Requested Visits Authorized [id number] Closed Specialty Services Required 03/10/2024 1 1 Reason for Visit * Reason Comments Follow-up * Consult (Routine/Next Available) - Authorization Not Required Specialty Diagnoses / Procedures Referred By Conteric t Referred To Contact Orthopedic Surgery Diagnoses Right wrist pain Laverne Sherman MD [address] [facility] [address] [place] [address] Phone: tel: fax: [facility] [address] [place] [address] Phone: tel: fax: Referral ID Status Reason Start Date Expiration Date Visits Requested Visits Authorized [id number] Authorization Not Required Specialty Services Required 4 1 1 Encounter Details Date Type Department Care Team (Late st Contact Info) Description 02/20/2024 16:00 EDT Office Visit [facility] [address] [place], [place] [id number] Eduin Hicks PA-C [address] [facility] [address] [place], [place] [id number] Right wrist pain (Primary Dx) Social History Tobacco Use Types Packs/Day Years [...] documented in this encounter Progress Notes * Eduin Hicks PA-C - 02/20/2024 1600 EDT Jonathon presents today for a follow up of her right hand. 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 MRI to evaluate cortical irregularity as well as MCP joint to ensure no cystic lesion potentially causing nerve irritation XR right wrist 01/06/24 MRI scheduled for 02/17/24 PROBLEM: Right hand pain SUBJECTIVE: Jonathon Hall is a 39 y.o. right HD female who has had years of symptoms from her right hand and wrist with several injuries in the past related to lifting weights and martial arts. [place] recently she has had pain radiating into the ulnar side of the long finger pain is provoked with active extension of the wrist. She denies numbness or tingling. She has noted some swelling in her hand. She has been doing physical therapy without benefit. She uses a brace regularly with mixed benefit We had ordered an MRI scan and she is here to review the study. Her symptoms remain unchanged. No other questions or concerns. OBJECTIVE: Msk: Right hand is without deformity today. No atrophy is noted. She has some tenderness at the MCPof the long finger with radiating pain into the long finger. No snuffbox tenderness dorsiflexion ofthe wrist provokes pain into the long finger. Able to make a good fist without pain Neuro-vascularly: Sensation intact throughout the hand. Skin warm and appears well perfused withoutcyanosis or pallor. DIAGNOSTICS: IMPRESSION 1. No concerning bone or soft tissue abnormality in the right hand. 2. Small radiocarpal / pisotriquetral joint effusion, nonspecific. ASSESSMENT: Right hand pain PLAN: We discussed her symptoms. Overall the MRI is reassuring. She may have an element of CTS and to that end I would obtain EMG evaluation. She is in agreement with this plan. We will see her afterher EMG. documented in this encounter Plan of Treatment Not on file documented as of this encounter Results * EMG/NERVE CONDUCTION STUDY (07/14/2024 16:00 EST) Narrative [facility] - 07/14/2024 16:00 EST Harsh Khan MD ? 07/14/2024 16:19 Clinical Neurophysiology Nerve Conduction and Electromyography Report PATIENT NAME: Jonathon Hall PATIENT : 1985 PCP: ??Livier Valdez DATE OF SERVICE: 07/14/2024 History: Jonathon Hall is a 39 y.o. female who presents on referral by LAKSHMI Hernandez* for evaluation of right hand symptoms. She describes a dull aching pain with use of the right wrist, worse with lifting heavy objects such as participating in [employer] games. No numbness or tingling in the [...] PA-C PROCEDURE/MINOR SURGICA L ORDERABLES Final Result [facility] documented in this encounter Visit Diagnoses Diagnosis Right wrist pain- Primary Pain in joint, forearm Right wrist pain- Primary Pain in joint, forearm documented in this encounter Care Teams Yardage Control Clerk Relationship Specialty Start Date End Date Livier Valdez, CARDIAC SURGEON [address] [place] [address] PCP - General Family Medicine - Primary Care 10/28/22 Mary Montana MD [address] [place] [phone] 03/25/19 documented as of this encounter
--- OUTSIDE RECORDS SUMMARY | 2024-09-15 00:24 | XMS_ITS | Encounter Summary ---
Author Organization [facility] Address [address] [place] [address] Care Team Providers Care Gas Appliance Adjuster Name Role Phone Mary Montana MD Unavailable Livier Valdez NP Primary Care Provider [phone] Reason for Visit * Reason Comments EMG (Electomyography) * Office Procedure (Routine/Next Available) - Closed Specialty Diagnoses / Procedures [facility] Referred To Contact Neurology Diagnoses Right wrist pain Procedures EMG/NERVE CONDUCTION STUDY Eduin Hicks, PAWalterC [address] [place] [address] [address] [place] [address] Phone: tel: fax: [facility] [address] [place] [address] Phone: tel: fax: Referral ID Status Reason Start Date Expiration Date V isits Requested Visits Authorized [id number] Closed Specialty Services Required 03/10/2024 1 1 Encounter Details Date Type Department Care Team (Late st Contact Info) Description 07/14/2024 16:00 EST Procedure visit [facility] [address] [place], [place] [id number] Harsh Khan MD [address] [facility] [address] [place] [address] Right wrist pain (Primary Dx) Social History [...] 05/04/2019 14:18 EDT documented in this encounter Procedure Notes * Harsh Khan MD - 07/14/2024 1600 ESTAssociated Order(s): EMG/NERVE CONDUCTION STUDY [facility] Clinical Neurophysiology Nerve Conduction and Electromyography Report PATIENT NAME: Jonathon Hall PATIENT : 1985 PCP: Livier Valdez DATE OF SERVICE: 07/14/2024 History: Jonathon Hall is a 39 y.o. female who presents on referral by LAKSHMI Hernandez* for evaluation of right hand symptoms. She describes a dull aching pain with use of the right wrist, worse with lifting heavy objects such as participating in [employer] games. No numbness or tingling in the [...] Electrodiagnostic Impression: - This study was normal. There is no electrodiagnostic evidence of right cervical radiculopathy, ormedian or ulnar neuropathy. Harsh Khan MD documented in this encounter Plan of Treatment Not on file documented as of this encounter Procedures Procedure Name Priority Date/Time Associated Diagnosis Comments EMG/NERVE CONDUCTION STUDY Routine/Next Available 07/14/2024 16:00 EST Right wrist pain documented in this encounter Results * EMG/NERVE CONDUCTION STUDY (07/14/2024 16:00 EST) Narrative [facility] - 07/14/2024 16:00 EST Harsh Khan MD ? 07/14/2024 16:19 [facility] Clinical Neurophysiology Nerve Conduction and Electromyography Report PATIENT NAME: Jonathon Hall PATIENT : 1985 PCP: ??Livier Valdez DATE OF SERVICE: 07/14/2024 History: Jonathon Hall is a 39 y.o. female who presents on referral by LAKSHMI Hernandez* for evaluation of right hand symptoms. She describes a dull aching pain with use of the right wrist, worse with lifting heavy objects such as participating in [employer] games. No numbness or tingling in the [...] PA-C PROCEDURE/MINOR SURGICA L ORDERABLES Final Result [facility] documented in this encounter Visit Diagnoses Diagnosis Right wrist pain- Primary Pain in joint, forearm documented in this encounter Care Teams Gas Appliance Adjuster Relationship Specialty Start Date End Date Livier Valdez NP [address] [place], [place] [address] PCP - General Family Medicine - Primary Care 10/28/22 Mary Montana MD [address] [place] [address] 03/25/19 documented as of this encounter
--- OUTSIDE RECORDS SUMMARY | 2024-09-15 00:25 | XMS_ITS | Encounter Summary ---
Author Organization [facility] Address [address] [place] [address] Care Team Providers Care Avionics Installer Name Role Phone Mary Montana MD Unavailable Livier Valdze NP Primary Care Provider [phone] Reason for Referral * Radiology Services (Routine/Next Available) - Authorization Not Required Specialty Diagnoses / Procedures Referred By Contac t Referred To Contact Diagnoses Disorder of thyroid, unspecified Procedures US THYROID/NECK Matty Eason MD [address] [address] Phone: tel: fax: [facility] Referral ID Status Reason Start Date Expiration Date Visits Requested Visits Authorized [id number] Authorization Not Required 09/04/2023 1 1 Reason for Visit * Radiology Services (Routine/Next Available) - Authorization Not Required Specialty Diagnoses / Procedures Referred By Contac t Referred To Contact Diagnoses Disorder of thyroid, unspecified Procedures US THYROID/NECK Matty Eason MD [address] [address] Phone: tel: fax: [facility] Referral ID Status Reason Start Date Expiration Date Visits Requested Visits Authorized [id number] Authorization Not Required 09/04/2023 1 1 Encounter Details Date Type Department Care Team (Latest Contact Info) Description 09/19/2023 13:00 EST - 09/19/2023 23:[address] [facility] Ultrasound [address] [place] [address] Disorder of thyroid, unspecified Discharge Disposition: Home or Self Care Social [...] Assessment Author No 06/20/2023 8:46 EST Parish Edmnods RN * Because of a physical, mental, [...] capsule Take 1 Capsule by mouth daily. methylphenidate HCl (RITALIN;METHYLI N) 5 mg tablet Take 2 Tablets by mouth daily. Patient reports 20mg omeprazole (PRILOSEC) 20 mg capsule Take 1 [...] Date/Time Associated Diagnosis Comments US THYROID/NECK Routine 09/19/2023 13:33 EST Disorder of thyroid, unspecified documented in this encounter Results * US THYROID/NECK (09/19/2023 13:33 EST) Anatomical Region Laterality Modality Neck Ultrasound 09/19/2023 14:0 1 EST Impressions 09/19/2023 14:01 EST 1. Left lower pole 1.1 x 1.1 x 0.8 cm mixed cystic/solid nodule as described above. REFERENCE: Diamond FN, eSth WD, Khoi EG, et al. ACR Thyroid Imaging, Reporting and Data System (TI-RADS): White Paper of the ACR TI-RADS Committee. J Am Lissette Radiol. 2017 December;14(5):587-595 [id number] Narrative 09/19/2023 14:01 EST US THYROID/NECK ??09/19/2023 1:06 PM SIGNS AND SYMPTOMS/COMMENTS: ??Disorder of Thyroid; Left lower lobe thyroid low attenuation nodule or cyst on recent CT.;E07.9:Disorder of thyroid, unspecified COMPARISONS: CT neck 09/04/2023. TECHNIQUE: Grayscale and color Doppler ultrasound images of the thyroid were obtained. FINDINGS: THYROID PARENCHYMA: Normal size. Homogeneous. Normal color Doppler flow. RIGHT THYROID LOBE: 5.1 x 1.6 x 1.6 cm LEFT THYROID LOBE: 5.2 x 1.5 x 1.7 cm THYROID ISTHMUS: 0.4 cm CERVICAL LYMPH NODES: None noted NODULES: See below. Nodule 1 ?? Location: Lower pole of the left thyroid lobe. ?? Size: 1.1 x 1.1 x 0.8 cm. ?? Composition: ??Mixed cystic and solid (1 point) ?? Echogenicity: ??Hypoechoic (2 points) ?? Shape: [id number] (0 points) ?? Margin: ??Smooth (0 points) ?? Echogenic Foci: ??No echogenic foci (0 points) ?? TI-RADS category: TR 3 (3 points) Procedure Note Gary Marquis MD - 09/19/2023 US THYROID/NECK 09/19/2023 1:06 PM SIGNS AND SYMPTOMS/COMMENTS: Disorder of Thyroid; Left lower lobe thyroidlow attenuation nodule or cyst on recent CT.;E07.9:Disorder of thyroid,unspecified COMPARISONS: CT neck 09/04/2023. TECHNIQUE: Grayscale and color Doppler ultrasound images of the thyroidwere obtained. FINDINGS: THYROID PARENCHYMA: Normal size. Homogeneous. Normal color Doppler flow. RIGHT THYROID LOBE: 5.1 x 1.6 x 1.6 cm LEFT THYROID LOBE: 5.2 x 1.5 x 1.7 cm THYROID ISTHMUS: 0.4 cm CERVICAL LYMPH NODES: None noted NODULES: See below. Nodule 1 Location: Lower pole of the left thyroid lobe. Size: 1.1 x 1.1 x 0.8 cm. Composition: Mixed cystic and solid (1 point) Echogenicity: Hypoechoic (2 points) Shape: [id number]-[id number] (0 points) Margin: Smooth (0 points) Echogenic Foci: No echogenic foci (0 points) TI-RADS category: TR 3 (3 points) IMPRESSION 1. Left lower pole 1.1 x 1.1 x 0.8 cm mixed cystic/solid nodule asdescribed above. REFERENCE: Diamond AGRAWAL, Seth WD, Khoi EG, et al. ACR Thyroid Imaging,Reporting and Data System (TI-RADS): White Paper of the ACR TI-RADSCommittee. J Am Lissette Radiol. 2017 December;14(5):587-595 [id number] us Matty Eason MD [facility] ORDERABLES Final Resul t documented in this encounter Visit Diagnoses Diagnosis Disorder of thyroid, unspecified documented in this encounter Care Teams Avionics Installer Relationship Specialty Start Date End Date Livier Valdez NP [address] [place] [address] PCP - General Family Medicine - Primary Care 10/28/22 Mary Montana MD [address] [place] [phone] 03/25/19 documented as of this encounter
--- OUTSIDE RECORDS SUMMARY | 2024-09-15 00:25 | XMS_ITS | Encounter Summary ---
Author Organization [facility] Address [address] [place] [address] Care Team Providers Care Aquarist Name Role Phone Mary Montana MD Unavailable Livier Valdez NP Primary Care Provider [phone] Encounter Details Date Type Department Care Team (Late st Contact Info) Description 09/11/2023 16:30 EST Phlebotomy Only [facility] - Outpatient Phlebotomy Drawing [address] [place] [address] [place], [facility] Disorder of thyroid gland Social History Tobacco Use Types Packs/Day Years [...] Procedure Name Priority Date/Time Associated Diagnosis Comments TSH Routine 09/11/2023 16:50 EST Disorder of thyroid gland documented in this encounter Results * TSH (09/11/2023 16:50 EST) TSH 0.89 0.47 - 4.68 mIU/L 09/11/2023 18:03 EST [facility] Blood VENOUS BLOOD / Unknown Venipuncture / Unknown 09/11/2023 16:50 EST 09/11/2023 17:02 EST Narrative [facility] - 09/11/2023 18:03 EST The results of this assay can be falsely lowered due to the consumption of Biotin. us Matty Eason MD CHEMISTRY & BLOOD GAS ORDERAB LES Final Result Performing Organization Address City/State/[facility] Co de Phone Number [facility] [address] [place] [address] documented in this encounter Visit Diagnoses Diagnosis Disorder of thyroid gland Unspecified disorder of thyroid documented in this encounter Care Teams Aquarist Relationship Specialty Start Date End Date Livier Valdez NP [address] [place] [address] PCP - General Family Medicine - Primary Care 10/28/22 Mary Montana MD [address] [place] [phone] 03/25/19 documented as of this encounter
--- OUTSIDE RECORDS SUMMARY | 2024-09-15 00:25 | XMS_ITS | Encounter Summary ---
Author Organization [facility] Address [address] [place] [address] Care Team Providers Care Vp Celebrity Services Name Role Phone Mary Montana MD Unavailable Livier Valdez NP Primary Care Provider [phone] Reason for Referral * Radiology Services (Routine/Next Available) - Authorization Not Required Specialty Diagnoses / Procedures Referred By Contac t Referred To Contact Diagnoses Localized swelling, mass and lump, neck Procedures CT SOFT TISSUE NECK W CONTRAST Matty Eason MD [address] [address] Phone: tel: fax: [facility] Referral ID Status Reason Start Date Expiration Date Visits Requested Visits Authorized [id number] Authorization Not Required 09/02/2023 1 1 Reason for Visit * Radiology Services (Routine/Next Available) - Authorization Not Required Specialty Diagnoses / Procedures Referred By Contac t Referred To Contact Diagnoses Localized swelling, mass and lump, neck Procedures CT SOFT TISSUE NECK W CONTRAST Matty Eason MD [address] [address] Phone: tel: fax: [facility] Referral ID Status Reason Start Date Expiration Date Visits Requested Visits Authorized [id number] Authorization Not Required 09/02/2023 1 1 Encounter Details Date Type Department Care Team (Latest Contact Info) Description 09/04/2023 13:22 EST - 09/04/2023 23:59 EST Hospital Encounter [facility] CT Scan [address] [place] [address] Localized swelling, mass and lump, neck Discharge Disposition: Home or Self Care Social [...] Procedure Name Priority Date/Time Associated Diagnosis Comments CT SOFT TISSUE NECK W CONTRAST Routine 09/04/2023 13:47 EST Localized swelling, mass and lump, neck documented in this encounter Results * CT SOFT TISSUE NECK W CONTRAST (09/04/2023 13:47 EST) Anatomical Region Laterality Modality Neck Computed Tomogra phy 09/04/2023 15:1 6 EST Addenda Addendum by Gary Marquis MD on 09/10/2023 12:21 EST Addendum: ADDENDUM: ?? Exam ordered with contrast only. Non-contrast portion due to technologist error and should not be charged. [id number] Impressions 09/04/2023 15:16 EST 1. No focal abnormality is seen in the left neck deep to the site of palpable concern marked by the patient. Please note however a negative imaging study should never preclude further clinical assessment and biopsy of a clinically suspicious finding. 2. Suspected anterior left inferior thyroid lobe 8 mm low-attenuation focus. This could reflect a nodule or cyst. This can be further assessed with thyroid ultrasound. [id number] Narrative 09/04/2023 15:16 EST EXAM: CT NECK W CONTRAST HISTORY: Pain and swelling left side of neck for over 1 month;R22.1:Localized swelling, mass and lump, neck TECHNIQUE: CT neck without and with intravenous contrast. Structured report code: NR.CT07 This CT used either dose modulation and/or iterative reconstruction techniques to lower radiation dose. COMPARISON: 09/10/2013 FINDINGS: PALPABLE: Skin marker was placed over the site of palpable concern along the lateral left neck. Deep to the skin marker, no clear abnormality is seen (series 301 image 39 and series 202 image 48). AERODIGESTIVE TRACT: Normal. LYMPH NODES: No adenopathy. PAROTID GLANDS: Normal. SUBMANDIBULAR GLANDS: Normal. THYROID: There is a suspected 8 mm low-attenuation focus in the anterior inferior left thyroid lobe (series 301 image 63). VESSELS: Allowing for non-angiographic technique, the major vascular structures are unremarkable. PARANASAL SINUSES/MASTOID AIR CELLS: Predominantly clear. LUNG APICES: Clear. BONES: There is a bony excrescence between the posterior proximal right first and second rib, unchanged from 2013 and likely developmental. VISIBLE INTRACRANIAL CONTENTS: Unremarkable. Procedure Note Gary Marquis MD - 09/04/2023 EXAM: CT NECK W CONTRAST HISTORY: Pain and swelling left side of neck for over 1month;R22.1:Localized swelling, mass and lump, neck TECHNIQUE: CT neck without and with intravenous contrast. Structuredreport code: NR.CT07 [address] used either dose modulation and/or iterative reconstructiontechniques to lower radiation dose. COMPARISON: 09/10/2013 FINDINGS: PALPABLE: Skin marker was placed over the site of palpable concern alongthe lateral left neck. Deep to the skin marker, no clear abnormality isseen (series 301 image 39 and series 202 image 48). AERODIGESTIVE TRACT: Normal. LYMPH NODES: No adenopathy. PAROTID GLANDS: Normal. SUBMANDIBULAR GLANDS: Normal. THYROID: There is a suspected 8 mm low-attenuation focus in the anterior inferiorleft thyroid lobe (series 301 image 63). VESSELS: Allowing for non-angiographic technique, the major vascular structures areunremarkable. PARANASAL SINUSES/MASTOID AIR CELLS: Predominantly clear. LUNG APICES: Clear. BONES: There is a bony excrescence between the posterior proximal right first andsecond rib, unchanged from 2014 and likely developmental. VISIBLE INTRACRANIAL CONTENTS: Unremarkable. IMPRESSION 1. No focal abnormality is seen in the left neck deep to the site ofpalpable concern marked by the patient. Please note however a negativeimaging study should never preclude further clinical assessment and biopsyof a clinically suspicious finding. 2. Suspected anterior left inferior thyroid lobe 8 mm low-attenuationfocus. This could reflect a nodule or cyst. This can be further assessedwith thyroid ultrasound. [id number] us Matty Eason MD IMG CT ORDERABLES Edited Resu lt - Final documented in this encounter Visit Diagnoses Diagnosis Localized swelling, mass and lump, neck Swelling, mass, or lump in head and neck documented in this encounter Administered Medications Inactive Administered Medications - up to 3 most recent administrations Medication Order MAR Action Action Date Dose Rate Site iohexoL (OMNIPAQUE 350) solution 100 mL 100 mL, intravenous, Once in imaging, 1 dose, Starting on Darlene 09/04/23 at 1323, Until Darlene 09/04/23 at 1348, Routine, Imaging Protocol Orders Given 09/04/2023 13:48 EST 100 mL documented in this encounter Orders Medications Ordered That Irving ht Not Have Been Administered Count Last Ordered Date First Ordered Date iohexoL (OMNIPAQUE 350) solution 100 mL 1 0 09/04/2023 documented in this encounter Care Teams Vp Celebrity Services Relationship Specialty Start Date End Date Livier Valdez, HAND BUFFER [address] [place], [place] [address] PCP - General Family Medicine - Primary Care 10/28/22 Mary Montana MD [address] [place] [address] 03/25/19 documented as of this encounter
--- OUTSIDE RECORDS SUMMARY | 2024-09-15 00:25 | XMS_ITS | Encounter Summary ---
Author Organization [facility] Address [address] [place] [address] Care Team Providers Care Career Development Engineer Name Role Phone Mary Montana MD Unavailable Livier Valdez NP Primary Care Provider [phone] Reason for Visit * Reason Onset Date Comments New/Evolving Symptoms 06/23/2023 Encounter Details Date Type Department Care Team (Late st Contact Info) Description 06/23/2023 Telephone [facility] Dermatology 3rd Floor [facility] [address], [place] [id number] Gary Vigren MD [address] [place] [address] [place] [phone] New/Evolving Symptoms Social History Tobacco Use Types Packs/Day Years [...] 05/04/2019 14:18 EDT documented in this encounter Miscellaneous Notes * Telephone Encounter - Jennifer Crain RN - 06/23/2023 0951 EST 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 Some of the raised red bumps of the vasculitis have popped and drained a purulent yellow drainage. Patient getting recurrent nose bleeds and vaginal bleeding which is unusual for her. Patient is very concerned due to the bleeding. She is heading to the emergency room at [facility]. And she is scheduled to come in tomorrow for an Emergency AC appt with Elisha Eldridge MD. JENNIFER CRAIN RN 06/23/2023 10:10 * Telephone Encounter - Huang Xavier - 06/23/2023 0813 EST Patient is calling about a spreading rash. That appears to cause bleeding from other orafaces. documented in this encounter Plan of Treatment Not on file documented as of this encounter Visit Diagnoses Not on filedocumented in this encounter Care Teams Career Development Engineer Relationship Specialty Start Date End Date Livier Valdez, ABE TEACHER [address] [place] [address] PCP - General Family Medicine - Primary Care 10/28/22 Mary Montana MD [address] [place] [phone] 03/25/19 documented as of this encounter
--- OUTSIDE RECORDS SUMMARY | 2024-09-15 00:25 | XMS_ITS | Encounter Summary ---
Author Organization [facility] Address [address] [place] [address] Care Team Providers Care Deckhand Sponge Boat Name Role Phone Mary Montana MD Unavailable Livier Valdez NP Primary Care Provider [phone] Encounter Details Date Type Department Care Team (Late st Contact Info) Description 12/02/2023 [facility] [address] [place] [address] Jaxson Lewis MD [address] [place] [address] Dysuria (Primary Dx) Social History Tobacco Use Types [...] documented as of this encounter Results * (ABNORMAL) UA CHEMICAL ONLY (12/02/2023 17:36 EDT) Color UA Yellow Colorless, Yellow 12/02/2023 18:31 [facility] Clarity UA Clear Clear 12/02/2023 18:31 [facility] Glucose UA Negative Negative mg/dL 12/02/2023 18:31 [facility] Bilirubin UA Negative Negative 12/02/2023 18:31 [facility] Ketones UA Trace(A) Negative 12/02/2023 18:31 [facility] Specific [place], Urine >=1.030 1.001 - 1.030 12/02/2023 18:31 [facility] Blood UA Negative Negative 12/02/2023 18:31 [facility] pH, UA 5.5 <8.5 12/02/2023 18:31 [facility] Protein UA Negative Negative mg/dL 12/02/2023 18:31 [facility] Urobilinogen UA 0.2 0.2-1.0 mg/dL mg/dL 12/02/2023 18:31 [facility] Nitrite UA Negative Negative 12/02/2023 18:31 [facility] Leukocyte Esterase UA Trace(A) Negative 12/02/2023 18:[address] [facility] Urine URINE SPECIMEN OBTAINED BY CLEAN CATCH PROCEDURE / Unknown Urine Collect / Unknown 12/02/2023 17:36 EDT 12/02/2023 17:36 EDT us Jaxson Lewis MD URINALYSIS ORDERABLES Final Resu lt Performing Organization Address City/State/[facility] Co de Phone Number [facility] [address] [place] [address] documented in this encounter Visit Diagnoses Diagnosis Dysuria- Primary documented in this encounter Care Teams Deckhand Sponge Boat Relationship Specialty Start Date End Date Livier Valdez NP [address] [place] [address] PCP - General Family Medicine - Primary Care 10/28/22 Mary Montana MD [address] [place] [phone] 03/25/19 documented as of this encounter
--- OUTSIDE RECORDS SUMMARY | 2024-09-15 00:25 | XMS_ITS | Encounter Summary ---
Author Organization [facility] Address [address] [place] [address] Care Team Providers Care Paralegal Legal Secretary Name Role Phone Mary Montana MD Unavailable Livier Valdez WAREHOUSE SELECTOR Primary Care Provider [phone] Encounter Details Date Type Department Care Team (Latest Contact Info) Description 10/10/2023 Transcribe Orders [facility] [place] [address] [place], [place] [phone] Livier Valdez, WAREHOUSE SELECTOR [address] [place] [address] Hyperglycemia (Primary Dx); Hyperlipidemia, unspecified hyperlipidemia type; Encounter for screening for infections with predominantly sexual mode of transmission; Vitamin D deficiency; Other fatigue; Amnesia Social History Tobacco Use Types Packs/Day Years [...] as of this encounter Results * VITAMIN B12 (10/14/2023 10:43 EST) Vitamin B12 894 211 - 911 pg/mL 10/14/2023 12:59 EST [facility] Blood VENOUS BLOOD / Unknown Venipuncture / Unknown 10/14/2023 10:43 EST 10/14/2023 11:37 EST Narrative [facility] - 10/14/2023 12:59 EST The results of this assay can be falsely elevated due to the consumption of Biotin. us Livier Valdez NP CHEMISTRY & BLOOD GAS ORDERABLES Final Result [facility] [address] [place] [address] * T3 FREE (10/14/2023 10:43 EST) T3, Free 4.1 2.8 - 5.3 pg/mL 10/14/2023 21:22 EST [facility] Blood VENOUS BLOOD / Unknown Venipuncture / Unknown 10/14/2023 10:43 EST 10/14/2023 11:37 EST Livier Valdez WAREHOUSE SELECTOR CHEMISTRY & BLOOD GAS ORDERABLES Final Result [facility] [address] [place] [address] * T4 FREE (10/14/2023 10:43 EST) T4, Free 1.0 0.8 - 2.2 ng/dL 10/14/2023 12:26 EST [facility] Blood VENOUS BLOOD / Unknown Venipuncture / Unknown 10/14/2023 10:43 EST 10/14/2023 11:37 EST Livier Valdez WAREHOUSE SELECTOR CHEMISTRY & BLOOD GAS ORDERABLES Final Result Performing Organization Address [facility]/ZIP Co de Phone Number [facility] [address] [place] [address] * (ABNORMAL) TSH (10/14/2023 10:43 EST) TSH 0.26(L) 0.47 - 4.68 mIU/L 10/14/2023 12:39 EST [facility] Blood VENOUS BLOOD / Unknown Venipuncture / Unknown 10/14/2023 10:43 EST 10/14/2023 11:37 EST Narrative [facility] - 10/14/2023 12:39 EST The results of this assay can be falsely lowered due to the consumption of Biotin. Livier Valdez WAREHOUSE SELECTOR CHEMISTRY & BLOOD GAS ORDERABLES Final Result [facility] [address] [place] [address] * COMPREHENSIVE METABOLIC PANEL (CMP) (10/14/2023 10:43 EST) Sodium 138 136 - 145 mmol/L 10/14/2023 12:07 EST [facility] Potassium 4.2 3.5 - 5.0 mmol/L 10/14/2023 12:07 EST [facility] Chloride 105 96 - 110 mmol/L 10/14/2023 12:07 [facility] CO2 Total 24 22 - 32 mmol/L 10/14/2023 12:07 [facility] Glucose 87 70 - 99 mg/dl 10/14/2023 12:07 [facility] BUN 13 10 - 26 mg/dL 10/14/2023 12:07 [facility] Creatinine 0.74 0.52 - 1.04 mg/dL 10/14/2023 12:07 [facility] eGFR 105 >60 mL/min/1.7 3m2 10/14/2023 12:07 [facility] Total Protein 7.2 6.3 - 8.2 g/dL 10/14/2023 12:07 [facility] Albumin 4.2 3.4 - 4.9 g/dL 10/14/2023 12:07 [facility] Alkaline Phosphatase 65 38 - 126 U/L 10/14/2023 12:07 [facility] AST 30 15 - 46 U/L 10/14/2023 12:07 [facility] ALT 34 <35 U/L 10/14/2023 12:07 [facility] Bilirubin, Total 0.6 <1.4 mg/dL 10/14/19 12:07 [facility] Calcium 9.2 8.5 - 10.5 mg/dL 10/14/2023 12:07 [facility] Albumin/Globulin Ratio 1.4 1.0 - 2.5 10/14/2023 12:07 [facility] Anion Gap 9 5 - 14 mmol/L 10/14/2023 12:07 [facility] Blood VENOUS BLOOD / Unknown Venipuncture / Unknown 10/14/2023 10:43 EST 10/14/2023 11:37 EST us Livier Valdez NP CHEMISTRY & BLOOD GAS ORDERABLES Final Result [facility] [address] [place] [address] * COMPLETE BLOOD COUNT AND DIFFERENTIAL (10/14/2023 10:43 [facility]) WBC 7.11 4.00 - 12.40 K/cmm 10/14/2023 11:45 [facility] RBC 5.03 3.86 - 5.04 M/cmm 10/14/2023 11:45 [facility] Hemoglobin 13.9 11.6 - 15.2 g/dL 10/14/2023 11:45 [facility] HCT 42.1 34.9 - 44.4 % 10/14/2023 11:45 [facility] MCV 84 81 - 98 fL 10/14/2023 11:45 [facility] MCH 27.6 26.7 - 33.3 pg 10/14/2023 11:45 [facility] MCHC 33.0 32.1 - 35.9 g/dL 10/14/2023 11:45 [facility] RDW-CV 12.4 <14.7 % 10/14/2023 11:45 [facility] RDW-SD 37.7 <50.4 fl 10/14/2023 11:45 [facility] PLT 356 141 - 377 K/cmm 10/14/2023 11:45 [facility] MPV 10.1 9.5 - 12.7 fL 10/14/2023 11:45 [facility] % Neutrophils 47.8 % 10/14/2023 11:45 [facility] % Lymphocytes 42.2 % 10/14/2023 11:45 [facility] % Monocytes 6.5 % 10/14/2023 11:45 [facility] % Eosinophils 2.5 % 10/14/2023 11:45 [facility] % Basophils 0.6 % 10/14/2023 11:45 [facility] % Immature Grans 0.4 % 10/14/19 11:45 [facility] Absolute Neutrophils 3.40 2.20 - 8.85 K/cmm 10/14/2023 11:45 [facility] Absolute Lymphocytes 3.00 1.09 - 3.30 K/cmm 10/14/2023 11:45 [facility] Absolute Monocytes 0.46 0.10 - 0.80 K/cmm 10/14/2023 11:45 [facility] Absolute Eosinophils 0.18 0.03 - 0.61 K/cmm 10/14/2023 11:45 [facility] ABS Basophils 0.04 0.01 - 0.11 K/cmm 10/14/2023 11:45 [facility] Absolute Immature Grans 0.03 0.00 - 0.06 K/cmm 10/14/2023 11:45 [facility] Type of Differential: Auto 10/14/2023 11:45 [facility] Blood VENOUS BLOOD / Unknown Venipuncture / Unknown 10/14/2023 10:43 EST 10/14/2023 11:35 EST us Livier Valdez WAREHOUSE SELECTOR PACKAGES & DNA PROBE ORDERABLES Final Result Performing Organization Address City/[facility]/ZIP Co de Phone Number [facility] [address] [place] [address] * MAGNESIUM (10/14/2023 10:43 EST) [facility] Magnesium 2.1 1.7 - 2.8 mg/dL 10/14/2023 12:07 [facility] Blood VENOUS BLOOD / Unknown Venipuncture / Unknown 10/14/2023 10:43 EST 10/14/2023 11:37 EST us Livier Valdez WAREHOUSE SELECTOR CHEMISTRY & BLOOD GAS ORDERABLES Final Result Performing Organization Address City/[facility]/ZIP Co de Phone Number [facility] [address] [place] [address] * VITAMIN D (25,OH) (10/14/2023 10:43 EST) 25OH Vitamin D Tot 52 30 - 100 ng/mL 10/14/2023 12:26 [facility] Blood VENOUS BLOOD / Unknown Venipuncture / Unknown 10/14/2023 10:43 EST 10/14/2023 11:37 EST us Livier Valdez WAREHOUSE SELECTOR CHEMISTRY & BLOOD GAS ORDERABLES Final Result Performing Organization Address [facility] Co de Phone Number [facility] [address] [place] [address] * HIV 1/2 ANTIGEN AND ANTIBODY, 4TH GENERATION (10/14/2023 10:43 EST) [facility] HIV 1 and 2 Antibody/p24 Antigen, 4th Generation Negative Negative 10/14/2023 12:44 EST [facility] Comment:If acute HIV-1 infec tion is suspected in a high risk patient, submit plasma specimen for HIV-1 RNA quantitation test. Blood VENOUS BLOOD / Unknown Venipuncture / Unknown 10/14/2023 10:43 EST 10/14/2023 11:37 EST us Livier Valdez WAREHOUSE SELECTOR IMMUNOLOGY AND SEROLOGY ORDERABL ES Final Result Performing Organization Address [facility] Co de Phone Number [facility] [address] [place] [address] * SYPHILIS RPR SCREEN W/REFLEX (10/14/2023 10:43 EST) [facility] Rapid Plasma Reagin Screen (RPR) Nonreactive Nonreactive 10/16/2023 10:52 EST [facility] Blood VENOUS BLOOD / Unknown Venipuncture / Unknown 10/14/2023 10:43 EST 10/14/2023 11:37 EST us Livier Valdez WAREHOUSE SELECTOR IMMUNOLOGY AND SEROLOGY ORDERABL ES Final Result Performing Organization Address [facility] Co de Phone Number [facility] [address] [place] [address] * (ABNORMAL) LIPID PROFILE (INCLUDES CHOLESTEROL, TRIGLYCERIDES, HDL, LDL) (10/14/2023 10:43 EST) [facility] Cholesterol 199 <200 mg/dL 10/14/2023 12:07 EST [facility] Comment:Note that therapeuti c goals will differ between patients based on cardiac risk factors and current medical therapy. HDL 43(L) >=50 mg/dl 10/14/2023 12:07 [facility] Comment:Note that therapeuti c goals will differ between patients based on cardiac risk factors and current medical therapy. LDL, Calculated 136 <160 mg/dL 12:07 [facility] Comment:Note that therapeuti c goals will differ between patients based on cardiac risk factors and current medical therapy. Triglyceride 102 <=150 mg/dL 10/14/2023 12:07 [facility] Comment:Note that therapeuti c goals will differ between patients based on cardiac risk factors and current medical therapy. Chol/HDL Ratio 4.6 See Note 10/14/2023 12:07 [facility] Comment: NOTE: Desirable Ratio = <4.1 Patient At Risk Ratio = >5.0(Males) ?>6.0(Females) Non HDL Cholesterol 156 <160 mg/dL 10/14/2023 12:07 [facility] Comment:Note that therapeuti c goals will differ between patients based on cardiac risk factors and current medical therapy. Blood VENOUS BLOOD / Unknown Venipuncture / Unknown 10/14/2023 10:43 EST 10/14/2023 11:37 EST us Livier Valdez WAREHOUSE SELECTOR CHEMISTRY & BLOOD GAS ORDERABLES Final Result Performing Organization Address City/State/[facility] Co de Phone Number [facility] [address] [place] [address] * HEMOGLOBIN A1C (10/14/2023 10:43 EST) Hemoglobin A1c 5.1 <5.7 % 10/14/2023 12:19 [facility] Comment: Glycemic Status References: Normal: ??<5.7% Pre-Diabetes: ??5.7% - 6.4% Diagnostic of Diabetes: ??> or = 6.5% (if confirmed) Est Avg Glucose 100 mg/dL 4 12:19 EST [facility] Comment:The eAG represents t he A1c result expressed as average glucose in mg/dL. Blood VENOUS BLOOD / Unknown Venipuncture / Unknown 10/14/2023 10:43 EST 10/14/2023 11:35 EST us Livier Valdez WAREHOUSE SELECTOR CHEMISTRY & BLOOD GAS ORDERABLES Final Result Performing Organization Address City/State/[facility] Co de Phone Number [facility] [address] [place] [address] documented in this encounter Visit Diagnoses Diagnosis Hyperglycemia- Primary Other abnormal glucose Hyperlipidemia, unspecified hyperlipidemia type Encounter for screening for infections with predominantly sexual mode of transmission Screening examination for venereal disease Vitamin D deficiency Unspecified vitamin D deficiency Other fatigue Amnesia Memory loss documented in this encounter Care Teams Paralegal Legal Secretary Relationship Specialty Start Date End Date Livier Valdez, WAREHOUSE SELECTOR [address] [place] [address] PCP - General Family Medicine - Primary Care 10/28/22 Mary Montana MD [address] [place] [phone] 03/25/19 documented as of this encounter
--- OUTSIDE RECORDS SUMMARY | 2024-09-15 00:25 | XMS_ITS | Encounter Summary ---
Author Organization [facility] Address [address] [place] [address] Care Team Providers Care Monotype Operator Name Role Phone Mary Montana MD Unavailable Livier Valdez NP Primary Care Provider [phone] Reason for Referral * PT/OT/ST (Routine/Next Available) - Closed Specialty Diagnoses / Procedures Referred By Kenn deluna Referred To Contact Rehab Therapies Diagnoses Low back pain with radiation Lynda Wolfe PA-C Phone: tel: fax: [facility] - [address] [address] Phone: tel: fax: Referral ID Status Reason Start Date Expiration Date V isits Requested Visits Authorized [id number] Closed Specialty Services Required 07/01/2023 1 1 Question Answer Reason for Request: low back pain with radiation into the left LE Comments This referral may serve as a referral to occupational therapy if appropriate. Reason for Visit * Reason Comments Pain Encounter Details Date Type Department Care Team (Late st Contact Info) Description 07/01/2023 16:30 EST Telemedicine [facility] [address] [place] [address] Lynda Wolfe PA-C [address] [facility] [address] [place], [place] [id number] Low back pain with radiation (Primary Dx) Social History Tobacco Use Types [...] documented in this encounter Progress Notes * Lynda Wolfe PA-C - 07/01/2023 1630 EST 07/01/2023 PATIENT: Jonathon Hall Primary Care Provider: Livier Valdez [address] [place] [id number] Referring Provider: No referring provider defined for this encounter. Phone: N/A Fax: CHIEF COMPLAINT No chief complaint on file. HISTORY OF PRESENT ILLNESS Jonathon Hall is a very pleasant 38 y.o. female with a PMH of fatty liver who was referred by Anuja Chavira PA-C regarding left sided lumbo-pelvic pain which developed during 3 years ago. Pain intermittently radiates into the left foot With numbness. She reports dyspareunia. She attendedphysical therapy. She underwent an L4-[address] Johnston on 02/13/23. She reports 1 week of improvement with fullsymptom return. She continues to have numbness into the great toe on the left. [facility] has [facility] and has had some benefit but this is $100/week as insurance offers no coverage. Some of the therapists there believed there could be a component coming from her hip. Since the patient's last visit, she has been in and out of the ER secondary to vasculitis. This is overshadowing her overall pain picture. Injection History: 02/13/2023: Left L4-5 TFESI HPI Treatments to date for this complaint have included: [] Physical therapy [] home care attendant or massage therapy [] Home exercise program [] Anti-inflammatories [x] Neuropathic pain medications [x] Muscle relaxer [x] Steroids [] Opioids [] Pain management evaluation [x] Injections or Radiofrequency Ablations [] TENS unit [] Alternative modalities (acupuncture, biofeedback, etc.) MEDICAL HISTORY Patient has a past medical history of Abnormal Pap smear of cervix, ADHD, and Back pain. SURGICAL HISTORY Patient has a past surgical history that includes Cervix surgery; Abdominoplasty; Breast enhancement surgery; Tubal ligation; and Rotator cuff repair (Right). MEDICATIONS Patient has a current medication list which includes the following prescription(s): calcium-cholecalciferol (d3), colchicine, hydroxyzine, lactobacillus rhamnosus (gg), methylphenidate hcl, omeprazole, prednisone, and sulfamethoxazole-trimethoprim. ALLERGIES Patient is allergic to amantadine, amitriptyline, doxycycline, and penicillin. FAMILY HISTORY Patient's family history includes Cancer in her maternal grandmother, paternal grandfather, and sister; Coronary Artery Disease in her maternal grandmother; Diabetes in her maternal grandmother, paternal grandmother, and sister. SOCIAL HISTORY Patient reports that she has quit smoking. She has never used smokeless tobacco. She reports that she does not currently use alcohol. She reports that she does not use drugs. REVIEW OF SYSTEMS Musculoskeletal: Positive for back pain. Neurological: Positive for numbness. All other systems reviewed and are negative. DIAGNOSTIC DATA VITALS vitals were not taken for this visit. PHYSICAL EXAM Nursing note and vitals reviewed.Vitals and nursing note reviewed. Constitutional: Appearance: Normal appearance. HENT: Head: Normocephalic and atraumatic. Nose: Nose normal. Mouth/Throat: Mouth: Mucous membranes are moist. Eyes: Pupils: Pupils are equal, round, and reactive to light. Cardiovascular: Rate and Rhythm: Normal rate and regular rhythm. Pulses: Normal pulses. Pulmonary: Effort: Pulmonary effort is normal. Musculoskeletal: Lumbar back: Tenderness present. No spasms. Decreased range of motion. Positive left straight leg raise test. Negative right straight leg raise test. Comments: + TTP over GTB on left Skin: General: Skin is warm and dry. Capillary Refill: Capillary refill takes less than 2 seconds. Neurological: Mental Status: She is alert. Mental status is at baseline. Sensory: Sensory deficit ( left L5 ) present. Motor: Motor function is intact. Gait: Gait is intact. Psychiatric: Mood and Affect: Mood normal. Behavior: Behavior normal. Judgment: Judgment normal. Exam from prior visit included as reference. IMAGING I have personally reviewed and interpreted the direct imaging and the findings were discussed in detail with the patient using models and images. CT abd/pelvis 09/26/22: There is a diffuse disc bulge at L4-5 with mild central canal stenosis and mild foraminal stenosis. Otherwise WNL. S/p tubal ligation. Large left ovarian cyst. MRI lumbar 03/30/23: There is a mild disc bulge at L4-5 with mild lateral recess stenosis. No high grade central canal or foraminal stenosis. Lumbar x-ray 03/21/23: WNL for stated age Hip x-ray: WNL for stated age. DIAGNOSIS There were no encounter diagnoses. ASSESSMENT/PLAN There are no diagnoses linked to this encounter. The patient presents via telemedicine secondary to low back pain with radiation into the left lowerextremity. X-rays of the low back and hip as well as MRI of the back were reevaluated. Unfortunately, treatments thus far have not been overly successful. These would include L4-5 transforaminal injection which improved symptoms very temporarily with full symptom return. There is no clear significant abnormality on x-ray of the hip. The patient reports she has tried myofascial release and this has been somewhat helpful. An alternative option would to be to do a L4-5 interlaminar injection, however, we would not recommend this in the context of recent vasculitis and current prednisone use. We d iscussed undergoing aqua therapy once the vasculopathy has improved. She is open to this and order will be placed. She will follow-up with us as needed after completion. The risks and benefits of these treatments were discussed today in detail. The patient expressed understanding of these risks andis agreeable with proceeding with this plan of care. All questions answered. This note was completed using [employer] speech recognition software. Grammatical errors, random word insertions, pronoun errors, and incomplete sentences are occasional consequences of the system due tosoftware limitation. If you have any questions about the context, text, or information contained within the body of this dication, they should be addressed to the provider for clarification. Any additional questions or concerns, please call our office at . This visit was conducted by telephone. I spent a total of 15 minutes in discussion with the patientas described in the progress note. The concept of ???Telemedicine?? has been described to the patient.? Patient has been informed of the anticipated benefits and possible risks.? Patient understands the information provided regardingtelemedicine, has had the opportunity to ask questions about this information, and all questions have been answered to patient???s satisfaction. Patient consents for the use of telemedicine in his/her medical care and authorizes the transmission of any relevant medical information to providers and their staff involved in patient???s medical or mental health care. Patient understands that they maybe responsible for copays, deductible or coinsurance for this service. Lynda Wolfe PA-C [facility] [address] [place] [address] Jonathon presents today for a f/u evaluation LV telemedicine with KK 04/10/23 per note PLAN 1. XR left hip XR left hip 05/19/23 IMPRESSION 1. Unremarkable hips. 2. Two tubal ligation clips again project over the right hemipelvis. The left tubal ligation clip was also shown to be displaced into the right hemipelvis on the prior CT. Suggest ADJUNCT FACULTY INSTRUCTOR follow-up. ?? documented in this encounter Plan of Treatment Scheduled Referrals Name Type Priority Associated Diagnoses Order Schedule AMB CONS/FOLLOW UP [place]YSICAL [place] [facility] [place] Referral Routine/Next Available Low back pain with radiation Expected: 07/08/2023 (Approximate), Expires: 07/01/2024 documented as of this encounter Visit Diagnoses Diagnosis Low back pain with radiation- Primary documented in this encounter Care Teams Monotype Operator Relationship Specialty Start Date End Date Livier Valdez NP [address] [place] [address] PCP - General Family Medicine - Primary Care 10/28/22 Mary Montana MD [address] [place] [phone] 03/25/19 documented as of this encounter
--- OUTSIDE RECORDS SUMMARY | 2024-09-15 00:25 | XMS_ITS | Encounter Summary ---
Author Organization [facility] Address [address] [place] [address] Care Team Providers Care Early Intervention School Psychologist Name Role Phone Mary Montana MD Unavailable Livier Valdez NP Primary Care Provider [phone] Reason for Visit * Reason Onset Date Comments Referral Request 12/02/2023 PT requesting o rtho referral Encounter Details Date Type Department Care Team (Late st Contact Info) Description 12/02/2023 Orders Only [facility] [address] [place] [address] Jaxson Lewis MD [address] [place] [address] Dysuria Social History Tobacco Use Types Packs/Day Years [...] Procedure Name Priority Date/Time Associated Diagnosis Comments UA CHEMICAL ONLY Routine 12/02/2023 17:3 6 EDT Dysuria documented in this encounter Results * (ABNORMAL) UA CHEMICAL ONLY (12/02/2023 17:36 EDT) Color UA Yellow Colorless, Yellow 12/02/2023 18:31 [facility] Clarity UA Clear Clear 12/02/2023 18:31 [facility] Glucose UA Negative Negative mg/dL 12/02/2023 18:31 [facility] Bilirubin UA Negative Negative 12/02/2023 18:31 [facility] Ketones UA Trace(A) Negative 12/02/2023 18:31 [facility] Specific [place], Urine >=1.030 1.001 - 1.030 12/02/2023 18:31 [facility] Blood UA Negative Negative 12/02/2023 18:31 [facility] pH, UA 5.5 <8.5 12/02/2023 18:31 [facility] Protein UA Negative Negative mg/dL 12/02/2023 18:31 [facility] Urobilinogen UA 0.2 0.2-1.0 mg/dL mg/dL 12/02/2023 18:31 EDT [facility] Nitrite UA Negative Negative 12/02/2023 18:31 EDT [facility] Leukocyte Esterase UA Trace(A) Negative 12/02/2023 18:31 EDT [facility] Urine URINE SPECIMEN OBTAINED BY CLEAN CATCH PROCEDURE / Unknown Urine Collect / Unknown 12/02/2023 17:36 EDT 12/02/2023 17:36 EDT us Jaxson Lewis MD URINALYSIS ORDERABLES Final Resu lt Performing Organization Address City/State/[facility] Co de Phone Number [facility] [address] [place] [phone] documented in this encounter Visit Diagnoses Diagnosis Dysuria documented in this encounter Care Teams Early Intervention School Psychologist Relationship Specialty Start Date End Date Livier Valdez NP [address] [place] [address] PCP - General Family Medicine - Primary Care 10/28/22 Mary Montana MD [address] [place] [phone] 03/25/19 documented as of this encounter
--- OUTSIDE RECORDS SUMMARY | 2024-09-15 00:25 | XMS_ITS | Encounter Summary ---
Author Organization [facility] Address [address] [place] [address] Care Team Providers Care Carbider Name Role Phone Mary Montana MD Unavailable Lviier Valdez NP Primary Care Provider [phone] Reason for Referral * PT/OT/ST (Routine/Next Available) - Closed Specialty Diagnoses / Procedures Referred By Kenn deluna Referred To Contact Rehab Therapies Diagnoses Dyspareunia in female Lynda Wolfe PA-C Phone: tel: fax: [facility] - [address] [address] Phone: tel: fax: Referral ID Status Reason Start Date Expiration Date V isits Requested Visits Authorized [id number] Closed Specialty Services Required 09/29/2023 1 1 Question Answer Reason for Request: pelvic floor PT Comments This referral may serve as a referral to occupational therapy if appropriate. Encounter Details Date Type Department Care Team (Late st Contact Info) Description 09/29/2023 Orders Only [facility] Orthopedics & Spine Medicine [address] [place] [address] Lynda Wolfe PA-C [address] [facility] [address] [place] [address] Dyspareunia in female (Primary Dx) Social History Tobacco Use Types [...] Schedule AMB CONS/FOLLOW UP PHYSICAL THERAPY - [facility] Outpatient Referral Routine/Next Available Dyspareunia in female Expected: 10/06/2023 (Approximate), Expires: 09/29/2024 documented as of this encounter Visit Diagnoses Diagnosis Dyspareunia in female- Primary documented in this encounter Care Teams Carbider Relationship Specialty Start Date End Date Livier Valdez NP [address] [place] [address] PCP - General Family Medicine - Primary Care 10/28/22 Mary Montana MD [address] [place] [phone] 03/25/19 documented as of this encounter
--- OUTSIDE RECORDS SUMMARY | 2024-09-15 00:25 | XMS_ITS | Encounter Summary ---
Author Organization [facility] Address [address] [place] [address] Care Team Providers Care Exhauster Engineer Name Role Phone Mary Montana MD Unavailable Livier Valdez NP Primary Care Provider Encounter Details Date Type Department Care Team (Late st Contact Info) Description 09/10/2023 Community Orders [address] [address] Matty Eason MD [facility] [address] [place] [address] Disorder of thyroid gland (Primary Dx) Social History Tobacco Use Types [...] documented as of this encounter Results * TSH (09/11/2023 16:50 EST) TSH 0.89 0.47 - 4.68 mIU/L 09/11/2023 18:03 EST [facility] Blood VENOUS BLOOD / Unknown Venipuncture / Unknown 09/11/2023 16:50 EST 09/11/2023 17:02 EST Narrative [facility] - 09/11/2023 18:03 EST The results of this assay can be falsely lowered due to the consumption of Biotin. us Matty Eason MD CHEMISTRY & BLOOD GAS ORDERAB LES Final Result Performing Organization Address City/State/[facility] Co de Phone Number [facility] [address] [place] [address] documented in this encounter Visit Diagnoses Diagnosis Disorder of thyroid gland- Primary Unspecified disorder of thyroid documented in this encounter Care Teams Exhauster Engineer Relationship Specialty Start Date End Date Livier Valdez NP [address] [place], [place] [phone] PCP - General Family Medicine - Primary Care 10/28/22 Mary Montana MD [address] [place] [address] 03/25/19 documented as of this encounter
--- OUTSIDE RECORDS SUMMARY | 2024-09-15 00:25 | XMS_ITS | Encounter Summary ---
Author Organization [facility] Address [address] [place] [address] Care Team Providers Care Steel Hanger Name Role Phone Mary Montana MD Unavailable Livier Valdez SPORTS CLERK Primary Care Provider [phone] Reason for Visit * Reason Comments Rash Patient was initial diagnosed with vasculitis a couple weeks ago, when she visited the ED. The patient has been to the ED several times. The patient states that she is concerned because the rash has spread from her lower extremities up to her core and arms. The patient reports abdominal pain, vomiting, and generalized bodyaches have also started. Images of rash are in patient chart from prior visit Encounter Details Date Type Department Care Team (Late st Contact Info) Description 06/20/2023 8:51 EST - 06/20/2023 13:25 EST Emergency [facility] Emergency Department [address] [place] [address] Brett Sellers PA-C [address] [place] [address] Small vessel vasculitis (HCC-CMS) (Primary Dx) Discharge Disposition: Home or Self [...] Sign Reading Time Taken Comments Blood Pressure 125/79 06/20/2023 1300 EST Pulse 93 06/20/2023 0848 EST Temperature 36.2 ??C (97.1 ??F) 06/20/2023 0848 EST Respiratory Rate 16 06/20/2023 0848 EST Oxygen Saturation 100% 06/20/2023 1300 EST Inhaled Oxygen Concentration - - Weight 90.7 kg (200 lb) 06/20/2023 0848 EST Height - - Body Mass Index 33.28 06/16/2023 1730 EST documented in this encounter Functional Status * [...] this encounter Discharge Instructions * Discharge Instructions* Jose Elias Huffman PA-C - 06/20/2023 13:05 EST You were seen today for persistent small vessel vasculitis. We recommend continuing with the colchicine treatment plan. We are encouraged by the improvement of her symptoms with Toradol and Zofran. We recommend following up closely with the dermatology clinic as scheduled. If your symptoms worsenwe recommend following up sooner. However if you develop fevers, unrelenting vomiting, pain we recommend returning to the emergency department for further evaluation. * Attachments The following attachments cannot be sent through Care Everywhere. * Vasculitis: General Info (Cameroonian) documented in this encounter Medications at Time of Discharge lactobacillus rhamnosus, GG, (CULTURELLE) 10 billion cell capsule Take 1 Capsule by mouth daily. methylphenidate HCl (RITALIN;METHYLIN ) 5 mg tablet Take 2 Tablets by mouth daily. Patient reports 20mg colchicine (COLCRYS) 0.6 mg tabletIndications :Rash Take 1 Tablet by mouth 2 times daily for 28 days. 56 Tablet 06/17/2023 07/15/2023 documented as of this encounter Ordered Prescriptions Prescription Sig Dispense Quantity Refills Last Filled Start Date End Date ondansetron (ZOFRAN-ODT) 4 mg disintegrating tablet Take 1 Tablet by mouth every 8 hours as needed for up to 7 days for Nausea. 21 Tablet 06/20/2023 3 documented in this encounter Discharge Disposition Disposition Code Departure Means Destination Comment s Home or Self [facility] documented in this encounter ED Notes * Sydnee Rose RN - 06/20/2023 0901 EST Pt states the rash is very itchy and has spread rapidly. * Brett Sellers PA-C - 06/20/2023 0822 EST Emergency Department Visit Medical Decision Making This is a 38-year-old female presenting to the emergency department with complaints of worsening rash to her lower extremities now expanding to her left flank and right upper extremity. She was seen at [facility] dermatology team who diagnosed her with a small vessel vasculitis and prescribed colchicine. Punch biopsies were performed. Today she is also complaining of increased abdominal pain. She underwent CT imaging within the past week which was read as normal as well. On exam she has the pronounced purpuric rash to the lower extremities with new lesions developing on her right upper extremity and left flank. None appear to be acutely infected. Labs repeated today which show an elevated CRP of 31.7 and a leukocytosis of 15,000. However, thesenumbers are on the decline compared to her labs from 06/17/2023. She was treated with ketorolac and IV Zofran with moderate improvement of her symptoms. Recommendation was to continue with the colchicine and follow-up as scheduled with the dermatology clinic. Relevant Data as of 06/23/23 1247 Mon Jun 23, 2023 1240 C-Reactive Protein(!): 31.7 [AH] 1240 Glucose, Serum(!): 100 [AH] 1240 BUN(!): 7 [AH] 1240 WBC(!): 15.17 [AH] 1240 ABS Neutrophils(!): 12.26 [AH] 1240 ABS Monocytes(!): 0.89 [AH] 1240 ABS Eosinophils(!): 0.02 [AH] 1240 ABS Immature Grans(!): 0.08 [AH] Relevant Data User Index [AH] Brett Sellers PA-C Laboratory data was reviewed. Medical Decision Making Small vessel vasculitis (HCC-CMS): acute illness or injury Amount and/or Complexity of Data Reviewed Labs: ordered. Decision-making details documented in ED Course. Risk Prescription drug management. Final diagnoses: Small vessel vasculitis (HCC-CMS) Disposition: Discharged Chief complaint: Worsening rash, abdominal pain and nausea HPI Jonathon Hall is a 38 y.o. female with recent diagnosis of vasculitis who presents to the ED for worsening rash with associated abdominal pain and nausea. History was provided by: Patient Records reviewed include: Dr. Pitts's note dated 06/12/2023 Patient's pertinent PMH, FH, SH were reviewed and edited as necessary. Nursing notes reviewed. A medical screening exam was performed. Physical Exam BP 125/79 Pulse 93 Temp 36.2 ??C (97.1 ??F) (Oral) Resp 16 Wt 90.7 kg (200 lb) SpO2 100% BMI 33.28 kg/m?? Physical Exam Vitals and nursing note reviewed. Constitutional: General: She is not in acute distress. Appearance: Normal appearance. HENT: Head: Normocephalic and atraumatic. Comments: No intraoral lesions noted Right Ear: External ear normal. Left Ear: External ear normal. Nose: Nose normal. Mouth/Throat: Mouth: Mucous membranes are moist. Eyes: Extraocular Movements: Extraocular movements intact. Pupils: Pupils are equal, round, and reactive to light. Cardiovascular: Rate and Rhythm: Normal rate and regular rhythm. Heart sounds: Normal heart sounds. Pulmonary: Effort: Pulmonary effort is normal. Breath sounds: Normal breath sounds. Abdominal: Palpations: Abdomen is soft. There is no mass. Tenderness: There is no abdominal tenderness. Musculoskeletal: General: No swelling or deformity. Normal range of motion. Cervical back: Normal range of motion and neck supple. Skin: General: Skin is warm and dry. Findings: Rash present. Rash is purpuric. Rash is not crusting. Comments: Purpuric rash noted to the lower extremities, left flank and upper back, right upper extremity. Neurological: General: No focal deficit present. Mental Status: She is alert and oriented to person, place, and time. Psychiatric: Mood and Affect: Mood normal. Behavior: Behavior normal. Procedures Procedures documented in this encounter Plan of Treatment Not on file documented as of this encounter Procedures Procedure Name Priority Date/Time Associated Diagnosis Comments COMPLETE BLOOD COUNT AND DIFFERENTIAL STAT 06/20/2023 9:52 EST C REACTIVE PROTEIN STAT 06/20/2023 9: 52 EST COMPREHENSIVE METABOLIC PANEL (CMP) STAT 06/20/2023 9:52 EST documented in this encounter Results * (ABNORMAL) C REACTIVE PROTEIN (06/20/2023 9:52 EST) C-Reactive Protein 31.7(H) <10.0 mg/L 06/20/2023 10:[address] [facility] Blood VENOUS BLOOD / Unknown Venipuncture / Unknown 06/20/2023 9:52 EST 06/20/2023 9:57 EST Brett Hare PA-C CHEMISTRY & BLOOD GAS ORDERABLES Final Result [facility] [address] [place] [address] * (ABNORMAL) COMPREHENSIVE METABOLIC PANEL (CMP) (06/20/2023 9:52 [facility]) Sodium 138 136 - 145 mmol/L 06/20/2023 10:20 [facility] Potassium 3.8 3.5 - 5.0 mmol/L 06/20/2023 10:20 [facility] Chloride 104 96 - 110 mmol/L 06/20/2023 10:20 [facility] CO2 Total 22 22 - 32 mmol/L 06/20/2023 10:20 [facility] Glucose 100(H) 70 - 99 mg/dl 06/20/2023 10:20 [facility] BUN 7(L) 10 - 26 mg/dL 06/20/2023 10:20 [facility] Creatinine 0.60 0.52 - 1.04 mg/dL 06/20/2023 10:20 [facility] eGFR 117 >60 mL/min/1.7 3m2 06/20/2023 10:20 [facility] Total Protein 7.8 6.3 - 8.2 g/dL 06/20/2023 10:20 [facility] Albumin 4.4 3.4 - 4.9 g/dL 06/20/2023 10:20 [facility] Alkaline Phosphatase 78 38 - 126 U/L 06/20/2023 10:20 [facility] AST 28 15 - 46 U/L 06/20/2023 10:20 [facility] ALT 48(H) <35 U/L 06/20/2023 10:20 [facility] Bilirubin, Total 0.9 <1.4 mg/dL 06/20/20 10:20 [facility] Calcium 9.5 8.5 - 10.5 mg/dL 06/20/2023 10:20 [facility] Albumin/Globulin Ratio 1.3 1.0 - 2.5 g/dL 06/20/2023 10:20 [facility] Anion Gap 12 5 - 14 mmol/L 06/20/2023 10:20 [facility] Blood VENOUS BLOOD / Unknown Venipuncture / Unknown 06/20/2023 9:52 EST 06/20/2023 9:57 EST us Brett Sellers PA-C CHEMISTRY & BLOOD GAS ORDERABLES Final Result Performing Organization Address City/State/[facility] Co de Phone Number [facility] [address] [place] [address] * (ABNORMAL) COMPLETE BLOOD COUNT AND DIFFERENTIAL (06/20/2023 9:52 EST) WBC 15.17(H) 4.00 - 12.40 K/cmm 06/20/2023 9:59 [facility] RBC 5.18(H) 3.86 - 5.04 M/cmm 06/20/2023 9:59 [facility] Hemoglobin 14.3 11.6 - 15.2 g/dL 06/20/2023 9:59 [facility] HCT 42.4 34.9 - 44.4 % 06/20/2023 9:59 [facility] MCV 82 81 - 98 fL 06/20/2023 9:59 [facility] MCH 27.6 26.7 - 33.3 pg 06/20/2023 9:59 [facility] MCHC 33.7 32.1 - 35.9 g/dL 06/20/2023 9:59 [facility] RDW-CV 12.7 <14.7 % 06/20/2023 9:59 [facility] RDW-SD 37.8 <50.4 fl 06/20/2023 9:59 [facility] PLT 369 141 - 377 K/cmm 06/20/2023 9:59 [facility] MPV 9.6 9.5 - 12.7 fL 06/20/2023 9:59 [facility] % Neutrophils 80.9 % 06/20/2023 9:59 [facility] % Lymphocytes 12.3 % 06/20/2023 9:59 [facility] % Monocytes 5.9 % 06/20/2023 9:59 [facility] % Eosinophils 0.1 % 06/20/2023 9:59 [facility] % Basophils 0.3 % 06/20/2023 9:59 [facility] % Immature Grans 0.5 % 06/20/20 9:59 [facility] Absolute Neutrophils 12.26(H) 2.20 - 8.85 K/cmm 06/20/2023 9:59 [facility] Absolute Lymphocytes 1.87 1.09 - 3.30 K/cmm 06/20/2023 9:59 [facility] Absolute Monocytes 0.89(H) 0.10 - 0.80 K/cmm 06/20/2023 9:59 [facility] Absolute Eosinophils 0.02(L) 0.03 - 0.61 K/cmm 06/20/2023 9:59 [facility] ABS Basophils 0.05 0.01 - 0.11 K/cmm 06/20/2023 9:59 [facility] Absolute Immature Grans 0.08(H) 0.00 - 0.06 K/cmm 06/20/2023 9:59 [facility] Type of Differential: Auto 06/20/2023 9:59 [facility] Blood VENOUS BLOOD / Unknown Venipuncture / Unknown 06/20/2023 9:52 EST 06/20/2023 9:57 EST us Brett Sellers PA-C PACKAGES & DNA PROBE ORDERABLES Final Result [facility] [address] [place] [address] documented in this encounter Visit Diagnoses Diagnosis Small vessel vasculitis (HCC-CMS)- Primary documented in this encounter Administered Medications Inactive Administered Medications - up to 3 most recent administrations Medication Order MAR Action Action Date Dose Rate Site ketOROLAC (TORADOL) injection 15 mg 15 mg, intravenous, NOW X1, 1 dose, On Fri06/20/23 at 1000, Routine Given 06/20/2023 9:52 EST 15 mg ondansetron (PF) (ZOFRAN) injection 4 mg 4 mg, intravenous, NOW X1, 1 dose, On Fri06/20/23 at 1000, STAT Given 06/20/2023 9:52 EST 4 mg documented in this encounter Active and Recently Administered Medications Times are shown in EST. Scheduled Medication Order 06/18/2023 06/19/2023 06/20/2023 ketOROLAC (TORADOL) injection 15 mg (COMPLETED) 15 mg, intravenous, NOW X1, 1 dose, On Fri06/20/23 at 1000, Routine 0952 (Given - Provid er: Amina Jesus RN) ondansetron (PF) (ZOFRAN) injection 4 mg (COMPLETED) 4 mg, intravenous, NOW X1, 1 dose, On Fri06/20/23 at 1000, STAT 0952 (Given - Provid er: Amina Jesus RN) documented in this encounter Care Teams Steel Hanger Relationship Specialty Start Date End Date Livier Valdez SPORTS CLERK [address] [place] [id number] PCP - General Family Medicine - Primary Care 10/28/22 Mary Montana MD [address] [place] [phone] 03/25/19 documented as of this encounter
--- OUTSIDE RECORDS SUMMARY | 2024-09-15 00:25 | XMS_ITS | Encounter Summary ---
Author Organization [facility] Address [address] [place] [address] Care Team Providers Care Rotor Plate Washer Name Role Phone Mary Montana MD Unavailable Livier Valdez NP Primary Care Provider [phone] Reason for Visit * Radiology Services (Routine/Next Available) - Authorization Not Required Specialty Diagnoses / Procedures Referred By Kenn deluna Referred To Contact Radiology Diagnoses Right wrist pain Right hand pain Procedures MR HAND WO CONTRAST RIGHT Eduin Hicks, PA-C [address] [address] Phone: tel: fax: [facility] Referral ID Status Reason Start Date Expiration Date Visits Requested Visits Authorized [id number] Authorization Not Required 01/02/2024 1 1 Encounter Details Date Type Department Care Team (Latest Contact Info) Description 02/17/2024 20:29 EDT - 02/17/2024 23:59 EDT Hospital Encounter [facility] Radiology MRI - Main [place] [address] [place] [address] Discharge Disposition: Home or Self Care Social [...] Procedure Name Priority Date/Time Associated Diagnosis Comments MR HAND WO CONTRAST RIGHT Routine 02/17/2024 21:28 EDT Right wrist pain Right hand pain documented in this encounter Results * MR HAND WO CONTRAST RIGHT (02/17/2024 21:28 EDT) Anatomical Region Laterality Modality Upper Extremities Right Magnetic Reson ance 02/19/2024 8:28 EDT Impressions 02/19/2024 8:28 EDT 1. ??No concerning bone or soft tissue abnormality in the right hand. 2. ??Small radiocarpal / pisotriquetral joint effusion, nonspecific. I have personally reviewed the images and the above interpretation and agree with the findings. [id number] Narrative 02/19/2024 8:28 EDT Exam/Technique: MR HAND WO CONTRAST RIGHT ??02/17/2024 9:02 PM History: ?? evaluate for soft tissue lesion;M25.531:Right wrist pain;M79.641:Right hand pain Comparison: X-ray right wrist 10/30/2023, 01/02/2024. Findings: Bones: Normal bone marrow signal. Soft tissues: No evidence of mass, ulcer, or drainable collection. Tendons: Intact without evidence of synovitis or tear. Muscles: Normal muscle bulk and signal. Joints: Small-volume fluid is present in the radiocarpal and pisotriquetral joints. Resulting Agency Comment [id number] Procedure Note Eduin Arguelles, DO - 02/19/2024 Exam/Technique: MR HAND WO CONTRAST RIGHT 02/17/2024 9:02 PM History: evaluate for soft tissue lesion;M25.531:Right wrist pain;M79.641:Righthand pain Comparison: X-ray right wrist 10/30/2023, 01/02/2024. Findings: Bones: Normal bone marrow signal. Soft tissues: No evidence of mass, ulcer, or drainable collection. Tendons: Intact without evidence of synovitis or tear. Muscles: Normal muscle bulk and signal. Joints: Small-volume fluid is present in the radiocarpal andpisotriquetral joints. IMPRESSION 1. No concerning bone or soft tissue abnormality in the right hand. 2. Small radiocarpal / pisotriquetral joint effusion, nonspecific. I have personally reviewed the images and the above interpretation andagree with the findings. [id number] us Eduin Hicks PA-C IMG MRI ORDERABLES [facility] l Result documented in this encounter Visit Diagnoses Not on filedocumented in this encounter Care Teams Rotor Plate Washer Relationship Specialty Start Date End Date Livier Valdez NP [address] [place] [address] PCP - General Family Medicine - Primary Care 10/28/22 Mary Montana MD [address] [place] [phone] 03/25/19 documented as of this encounter
--- OUTSIDE RECORDS SUMMARY | 2024-09-15 00:25 | XMS_ITS | Encounter Summary ---
Author Organization [facility] Address [address] [place] [address] Care Team Providers Care Chief Optometry Service Name Role Phone Mary Montana MD Unavailable Livier Valdez QUALITY CONTROL LAB TECHNICIAN Primary Care Provider [phone] Reason for Visit * Reason Comments Follow-up Vasculitis f/u, brooklynn ent reports improvement. Still lesions on legs healing slowly Encounter Details Date Type Department Care Team (Late st Contact Info) Description 07/18/2023 15:30 EST Office Visit [facility] Dermatology 3rd Floor [facility] [address] [place] [address] Matt Marcum MD [address] [place], [place] [id number] Leukocytoclastic vasculitis (HCC-CMS) (Primary Dx) Social History Tobacco Use Types [...] 05/04/2019 14:18 EDT documented in this encounter Patient Instructions * Patient Instructions* Matt Marcum MD - 07/18/2023 15:30 EST -finish the prednisone taper as previously prescribed -Finish the bottle of colchicine that you have as previously prescribed (1 pill twice daily), then start the new prescription (1 pill per day for 30 days) -Call if there is any signs of your rash or joint pain returning -Continue using compression stockings -Expect that it will take months for the color in your legs to return to normal documented in this encounter Ordered Prescriptions Prescription Sig Dispense Quantity Refills Last Filled Start Date End Date colchicine (COLCRYS) 0.6 mg tabletIndications: Leukocytoclastic vasculitis (HCC-CMS) Take 1 Tablet by mouth daily for 30 days. 30 Tablet 07/18/2023 08/17/2023 documented in this encounter Progress Notes * Matt Marcum MD - 07/18/2023 1530 EST Images from the original note were not included. Dermatology Outpatient Visit Note Chief Complaint Patient presents with Follow-up Vasculitis f/u, patient reports improvement. Still lesions on legs healing slowly Dermatologic History: # LCV w/ negative DIF biopsied 06/17/23 and 06/24/23; unclear etiology but possibly triggered by viral infection Last Dermatology Clinic Visit: 06/24/23 SUBJECTIVE: Jonathon Hall is a 38 y.o. female who presents for follow up of LCV. States she is feeling much better. Her joint pain has resolved and her skin is no longer painful. Most of the spots on her arms and abdomen have gone away. She still has purple spots on her legs but they seem to be fading. She has not developed any new lesions. She is still taking prednisone and colchicine as prescribed. States that her PCP refilled the TMP/SMX she was prescribed by Dr. Eldridge so she is still taking that too. OBJECTIVE: Focused cutaneous examination was performed. -Numerous violaceous purpuric macules, some with crust on the bilateral legs ASSESSMENT & PLAN: Leukocytoclastic vasculitis: improving - Bx x2 were negative for IgA vasculitis on DIF - No evidence of renal involvement on CMP, UA - Appears to be in resolution phase at this time with no clinically active lesions - Discussed that it will likely take months for the discoloration in her legs to normalize. Spots are expected to turn brown then slowly fade. Minimize sun exposure as this can worsen/prolong the discoloration - Discontinue TMP/SMX - Complete taper of prednisone as prescribed. Continue omeprazole, Ca + Vit D supplementation whileon prednisone - Complete course of colchicine 0.6mg BID as previously prescribe, then start: - colchicine (COLCRYS) 0.6 mg tablet; Take 1 Tablet by mouth daily for 30 days. Dispense: 30 Tablet; Refill: 0 - Call for appt if there are any signs that her rash is worsening or her joint pains are returning FOLLOW UP: Return if symptoms worsen or fail to improve. Matt Marcum MD PGY-3 Dermatology Resident 07/18/2023 16:53 Attestation Statement: I saw and examined the patient with the resident/fellow. I agree with the findings and plan of care documented in the resident's/fellow's note. Francisco Cesar MD Dermatology [facility] documented in this encounter Plan of Treatment Not on file documented as of this encounter Visit Diagnoses Diagnosis Leukocytoclastic vasculitis (HCC-CMS)- Primary Other specified hypersensitivity angiitis documented in this encounter Care Teams Chief Optometry Service Relationship Specialty Start Date End Date Livier Valdez NP [address] [place] [address] PCP - General Family Medicine - Primary Care 10/28/22 Mary Montana MD [address] [place] [phone] 03/25/19 documented as of this encounter
--- OUTSIDE RECORDS SUMMARY | 2024-09-15 00:25 | XMS_ITS | Encounter Summary ---
Author Organization [facility] Address [address] [place] [address] Care Team Providers Care Pile Driver Operator Barge Mounted Name Role Phone Mary Montana MD Unavailable Livier Valdez PRINTING SPECIALIST Primary Care Provider [phone] Reason for Visit * Reason Comments Follow-up Vasculitis, legs and back. Encounter Details Date Type Department Care Team (Latest Contact Info) Description 06/24/2023 9:20 EST Office Visit [facility] Dermatology 5th Floor [facility] [address], [place] [id number] Elisha Eldridge MD PhD [address] [place] [address] [place] [phone] Leukocytoclastic vasculitis (HCC-CMS) (Primary Dx); Rash; Arthritis Social History Tobacco Use Types Packs/Day Years [...] this encounter Patient Instructions * Patient Instructions* Carrillo Vega MD - 06/24/2023 9:20 EST Decrease colchicine to twice daily. Start prednisone- 60 mg daily for 5 days, then 50 for 5, then 40 mg for 5, then 30 for 5, then 20 for 5, then 10 for 5 days, then stop While on prednisone, take calcium, vitamin D, and omeprazole Also start taking bactrim twice daily for 3 weeks. For your legs: 1/4 cup of bleach in an entire tub DILUTE BLEACH BATH RECIPE: 1 to 2 teaspoons bleach for each gallon of water. This is similar to a chlorinated swimming pool. Soak for 10-15 minutes. Rinse off. Never apply UNDILUTED bleach to your skin. - Alternate with - DILUTE VINEGAR BATH RECIPE 4 tablespoons white vinegar per quart lukewarm tap water Soak for 10-15 minutes. Rinse off. WOUND CARE INSTRUCTIONS FOR SHAVE/PUNCH SKIN BIOPSY The DRESSING/BAND-AID should remain in place for 24 hours. You may shower or bathe after 24 hours; remove the bandage and replace it after the shower. Continue to keep the biopsy site covered with Vaseline and a Band-Aid/bandage for 1 week after the biopsy and change daily. WOUND CARE: Wash hands with soap and water before changing the dressing. Clean the wound daily with mild soap and water. You may gently loosen any crusts with a cotton swab. The wound may be slightly tender and may bleed a small amount. A small amount of discharge is normal. Apply a thin layer of sterile petroleum jelly over the wound. Cover the wound with a Telfa (non-stick) dressing or bandage. It is important to keep the wound covered. Change the dressing daily and when it becomes wet. Do not clean your open wound with hydrogen peroxide or apply an antibiotic ointment unless prescribed by your provider. Using these can be more harmful and damaging to the healing skin. Many people are allergic to the topical antibiotics over the counter and this results in a rash occurring around the biopsy site. DISCOMFORT: Expect some discomfort. Tylenol, taken as directed by the hydrotreater operator, will help relieve pain. If Tylenol does not provide sufficient relief, you may also take Ibuprofen alternating every four hours with the Tylenol. If the pain is severe and not relieved by the above measures, please c all the office. BLEEDING: You may notice some blood on the edges of the dressing the first day and this is normal. If the bleeding soaks through the dressing, remove the dressing, and apply firm, steady pressure with a moist clean wash cloth for twenty minutes. If the bleeding stops, redress the wound, if not, call our office at . ACTIVITY: You may resume normal activity in 1 day unless instructed otherwise. LEG BIOPSIES: If your biopsy was on the leg, expect the healing process to take weeks-months. You will need to keep it covered for at least 2 weeks. It is normal and expected that leg wounds/biopsies take what seems like forever to heal. Healing can also take longer in patients who have swollen legs or peripheral vascular disease. Make sure the biopsy site is the last area you wash in the shower (or re wash it when you get out) to ensure that bacteria from your body does not run into your wound and result inan infection. If you had stitches placed (usually after having a punch biopsy) you will need to have these removed by our nursing staff, in 7 days, unless otherwise instructed. CONTACT THE OFFICE or IF YOU EXPERIENCE: increased redness warmth to touch increased pain drainage with a foul odor rapid swelling of the wound fever or chills documented in this encounter Ordered Prescriptions Prescription Sig Dispense Quantity Refills Last Filled Start Date End Date sulfamethoxazole-t rimethoprim (BACTRIM/CO-TRIMOX AZOLE DS) 800-160 mg per tablet Take 1 Tablet by mouth 2 times daily. 42 Tablet 06/24/2023 Calcium-Cholecalci ferol, D3, (CALCIUM 500 + D) 500 mg-10 mcg (400 unit) tablet Take 2 Tablets by mouth daily. 60 Tablet 11 06/24/2023 predniSONE (DELTASONE) 10 mg tablet 6tab/d x 5d, 5tab/d x 5days, 4tab/d x 5days, 3tab/d x 5days, 2tab/d x 5 days, 1tab/d x 5days then stop. 105 Tablet 06/24/2023 omeprazole (PRILOSEC) 20 mg capsule Take 1 Capsule by mouth daily. Take while on prednisone 15 Capsule 06/24/2023 sulfamethoxazole-t rimethoprim (BACTRIM/CO-TRIMOX AZOLE DS) 800-160 mg per tablet Take 1 Tablet by mouth 2 times daily. 42 Tablet 06/24/2023 3 Calcium-Cholecalci ferol, D3, (CALCIUM 500 + D) 500 mg-10 mcg (400 unit) tablet Take 2 Tablets by mouth daily. 60 Tablet 11 06/24/2023 3 predniSONE (DELTASONE) 10 mg tablet 6tab/d x 5d, 5tab/d x 5days, 4tab/d x 5days, 3tab/d x 5days, 2tab/d x 5 days, 1tab/d x 5days then stop. 105 Tablet 06/24/2023 3 documented in this encounter Progress Notes * Carrillo Vega MD - 06/24/2023 9357 EST Images from the original note were not included. Dermatology Outpatient Visit Note Chief Complaint Patient presents with ??? Follow-up Vasculitis, legs and back. Dermatologic History: LCV w/ negative DIF biopsied 06/17/23, thought to be infectious, treated with colchicine Last Dermatology Clinic Visit: 06/17/23 SUBJECTIVE: Jonathon Hall is a 38 y.o. female who presents for vasculitis follow up. - Pt was seen by Dr. Virgen and Jossue on 06/17 and biopsy was consistent with LCV w/ negative DIF. Pt also had elevated white count, so vasculitis was thought to be 2/2 infection. - Her rash was spreading and she developed nose bleeds, so she went to [facility] ED last night. Shehad stable vital signs and her labs showed a white count of 11 (which was decreased from prior) comfort normal Hgb. - The ED increased her colchicine to TID and she is having more GI upset - Currently, her rash is still spreading and not itchy but has a tingling/burning sensation. - she denies fevers, chills, dysuria. She did see blood when she was blowing her nose, no clifton epistaxis. She is also spotting which she does not usually have since she has an IUD. OBJECTIVE: Cutaneous full body examination excluding genitalia was performed. 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 Renal function has remained within normal limits. - DERMATOLOGY SURGICAL PATHOLOGY - DECREASE colchicine 0.6 mg to twice daily due to GI upset - START predniSONE (DELTASONE) 10 mg tablet; 6tab/d x 5d, 5tab/d x 5days, 4tab/d x 5days, 3tab/d x 5days, 2tab/d x 5 days, 1tab/d x 5days then stop. Dispense: 105 Tablet; Refill: 0 - CONTINUE omeprazole (PRILOSEC) 20 mg capsule; Take 1 Capsule by mouth daily. Take while on prednisone Dispense: 15 Capsule; Refill: 0 - START Calcium-Cholecalciferol, D3, (CALCIUM 500 + D) 500 mg-10 mcg (400 unit) tablet; Take 2 Tablets by mouth daily. Dispense: 60 Tablet; Refill: 11 - START sulfamethoxazole-trimethoprim (BACTRIM/CO-TRIMOXAZOLE DS) 800-160 mg per tablet; Take 1 Tablet by mouth 2 times daily. Dispense: 42 Tablet; Refill: 0 - discussed vinegar or bleach soaks to prevent infection of lower legs since they are bullous and starting to erode PROCEDURE: PUNCH BIOPSY PATIENT: Jonathon Hall : MRN: [id number] SURGEON: CARRILLO VEGA MD Informed consent was obtained in writing. PROCEDURE: Punch biopsy INDICATION: Diagnostic biopsy PREP: Alcohol ANESTHESIA: 1% lidocaine with epinephrine 1:100,000 local infiltration PERFORMED BY: The resident performed the procedure. Specimen Procedure: Punch 4+4 Location: Thigh, right DIF Description: Purpuric papules and macules, prior biopsy showed LCV r/o IGA Vasculitis Specimen Procedure: Punch 4+4 Location: Thigh, right H&E Description: Purpuric papules and macules, prior biopsy showed LCV r/o IGA Vasculitis The lesions were prepped and anesthetized with local anesthesia. The specimens were removed with a 4.0 mm punch trephine. Hemostasis was achieved with pressure. The wounds were closed with 4.0 Prolene (polypropylene) suture. A sterile dressing was applied over petrolatum ointment. Wound care instructions were provided. The specimens were submitted to pathology for histological evaluation. FOLLOW UP: Return in 24 days (on 07/18/2023) for w/ Dr. Marcum. Carrillo Vega MD 06/24/2023 12:52 Attestation Statement: I saw and examined the patient with the resident/fellow. I agree with the findings and plan of care documented in the resident's/fellow's note. I was present during the mullins andcritical portions of the procedure and agree with the resident's/fellow note. Elisha Eldridge MD PhD Dermatology [facility] documented in this encounter Miscellaneous Notes * Result Encounter Note - Elisha Eldridge MD PhD - 06/24/2023 0920 EST Notified patient of diagnosis: leukocytoclastic vasculitis without IgA. She is doing much better on the prednisone and states that she finally feels like herself again. Reviewed woundcare, and she is doing dilute vinegar soaks, vaseline and compression stockings as recommended. Return to clinic as scheduled. -Nothing further to do at this time. Lab Results Component Value Date FINALDX 06/24/2023 A. SKIN OF THIGH, RIGHT, PUNCH BIOPSY: - Negative immunofluorescence. See ancillary studies. B. SKIN OF THIGH, RIGHT, PUNCH BIOPSY: - Leukocytoclastic vasculitis with focal epidermal necrosis. See comment. [FORMATTING REMOVED] Elisha Eldridge MD PhD documented in this encounter Plan of Treatment Not on file documented as of this encounter Procedures Procedure Name Priority Date/Time Associated Diagnosis Comments DERMATOLOGY SURGICAL PATHOLOGY Routine 06/24/2023 10:15 EST Rash documented in this encounter Results * DERMATOLOGY SURGICAL PATHOLOGY (06/24/2023 10:15 EST) Note to Patient The following pathology results have been interpreted by your pathologist and may be available to you before your health provider has had the opportunity to review them. Please allow time for your provider to receive these results and explore management options, if applicable. 06/26/2023 10:28 EST [facility] Final Diagnosis A. SKIN OF THIGH, RIGHT, PUNCH BIOPSY: - Negative immunofluorescence . See ancillary studies. B. SKIN OF THIGH, RIGHT, PUNCH BIOPSY: - Leukocytoclastic vasculitis with focal epidermal necrosis. See comment. 06/26/2023 10:28 [facility] Diagnosis Comment The histologic features are similar to those noted in the previous biopsy ([id number]) with prominent vasculitic changes involving small vessels of the dermis and focal epidermal necrosis. Larger vessels within the deep dermis and subcutis are uninvolved. 06/26/2023 10:28 [facility] Attestation By the signature below, the attending physician certifies that they have 1) personally conducted a gross and/or microscopic examination of the described specimen(s), and/or personally interpreted the results of laboratory testing of the described specimen(s), and 2) personally rendered or confirmed the above diagnosis. 06/26/2023 10:28 [facility] at 1028 Microscopic Description Sections consist of a punch biopsy of skin to the subcutis. The epidermis is of relatively normal thickness. There is a central area of ischemic necrosis with neutrophilic exocytosis. The superficial dermis has a dense diffuse infiltrate that is composed primarily of mature neutrophils. There is a smaller component of mononuclear cells. There is abundant leukocytoclastic debris. Vessels show mural fibrinoid change and fragmentation. There is erythrocyte extravasation. 06/26/2023 10:28 [facility] Ancillary Studies INTERPRETATION: Negative immunofluorescence . DESCRIPTION The specimen consists of a skin biopsy with intact dermis and epidermis. Frozen sections are exposed to fluorescein-labell ed antibodies directed against IgG, IgM, IgA, C3 and polyvalent immunoglobulins (IgA, IgG, IgM, Bernard and Lambda). No specific fluorescence seen in any location. NOTE: One or more of the reagents used in immunoperoxidase testing in this case may not have been cleared or approved by the U.S. Food and Drug Administration (FDA). The FDA has determined that such clearance or approval is not necessary. These tests are used for clinical purposes. They should not be regarded as investigational or for research. These reagents' performance characteristics have been determined by [facility] and/or by the referring laboratory. The positive and negative controls worked appropriately. If immunoperoxidase staining has been performed on alcohol fixed cytology specimens, which has not been fully validated, the assays should be interpreted with caution and correlated with clinical data. This laboratory is certified under the Clinical Laboratory Improvement Amendments of 1988 (CLIA-88) as qualified to perform high complexity clinical laboratory testing. 06/26/2023 10:28 [facility] Clinical History A, B. Purpuric papules and macules, prior biopsy showed LCV; R/O IGA vasculitis; clinical diagnosis code: R21 06/26/2023 10:28 [facility] Gross Description A. Received in [employer] labelled with proper patient identification (initials S, N) and thigh, right DIF is a punch biopsy of pink skin (0.4 cm in diameter by 0.3 cm in depth). Submitted to histology for immunofluorescence . B. Received in formalin labelled with proper patient identification (initials S, N) and thigh, right H&E is a punch biopsy of pink-red skin (0.4 cm in diameter by 0.5 cm in depth). Submitted intact in B1. LAKSHMI LANDA([facility]) 06/24/2023 14:20 06/26/2023 10:28 [facility] Performing Lab [facility] 10:28 [facility] Scanned Images 06/26/2023 10:28 [facility] Tissue SPECIMEN FROM SKIN / Unknown Collection, Other / Unknown 06/24/2023 10:15 EST 06/24/2023 11:28 EST Tissue specimen (specimen) SPECIMEN FROM SKIN / Unknown 06/24/2023 10:15 EST 06/24/2023 11:28 EST us Elisha Eldridge MD PhD PATHOLOGY ORDERABLES Gissell l Result [facility] [address] [place] [address] documented in this encounter Visit Diagnoses Diagnosis Leukocytoclastic vasculitis (HCC-CMS)- Primary Other specified hypersensitivity angiitis Rash Rash and other nonspecific skin eruption Arthritis Arthropathy, unspecified, site unspecified documented in this encounter Discontinued Medications Medication Sig Discontinue Reason Start Date End Da te omeprazole (PRILOSEC) 20 mg capsule Take 1 Capsule by mouth daily. Reorder 06/24/2023 predniSONE (DELTASONE) 10 mg tablet 6tab/d x 5d, 5tab/d x 5days, 4tab/d x 5days, 3tab/d x 5days, 2tab/d x 5 days, 1tab/d x 5days then stop. 06/24/2023 06/24/2023 Calcium-Cholecalciferol, D3, (CALCIUM 500 + D) 500 mg-10 mcg (400 unit) tablet Take 2 Tablets by mouth daily. 06/24/2023 06/24/2023 sulfamethoxazole-trimeth oprim (BACTRIM/CO-TRIMOXAZOLE DS) 800-160 mg per tablet Take 1 Tablet by mouth 2 times daily. 06/24/2023 06/24/2023 documented as of this encounter Historical Medications * This list may reflect changes made after this encounter. hydrOXYzine (ATARAX) 10 mg tablet Take 1 Tablet by mouth 3 times daily as needed for Itching. omeprazole (PRILOSEC) 20 mg capsule Take 1 Capsule by mouth daily. 06/24/2023 added in this encounter Care Teams Pile Driver Operator Barge Mounted Relationship Specialty Start Date End Date Livier Valdez NP [address] [place] [phone] PCP - General Family Medicine - Primary Care 10/28/22 Mary Montana MD [address] [place] [phone] 03/25/19 documented as of this encounter
--- OUTSIDE RECORDS SUMMARY | 2024-09-15 00:25 | XMS_ITS | Encounter Summary ---
Author Organization [facility] Address [address] [place] [address] Care Team Providers Care Tool Rental Technician Name Role Phone Mary Montana MD Unavailable Livier Valdez NP Primary Care Provider [phone] Reason for Referral * Consult (Routine/Next Available) - Authorization Not Required Specialty Diagnoses / Procedures Referred By Contac t Referred To Contact Orthopedic Surgery Diagnoses Right wrist pain Laverne Wise MD [address] [place] [address] Phone: tel: fax: [facility] [address] [place] [address] Phone: tel: fax: Referral ID Status Reason Start Date Expiration Date Visits Requested Visits Authorized [id number] Authorization Not Required Specialty Services Required 4 1 1 Question Answer Reason for Request: Acute on chronic right wrist pain, plateaued with physical therapy. Comments See express care note from 10/01/2023 * PT/OT/ST (Routine/Next Available) - Authorization Not Required Specialty Diagnoses / Procedures Referred By Contac t Referred To Contact Rehab Therapies Diagnoses Right wrist pain Laverne Wise MD Phone: tel: fax: [facility] [address] [place] [address] Phone: tel: fax: Referral ID Status Reason Start Date Expiration Date Visits Requested Visits Authorized [id number] Authorization Not Required Specialty Services Required 4 1 1 Question Answer Reason for Request: right wrist tendinitis, acute on chronic. Patient already seen at [facility] for other ailments Comments This referral may serve as a referral to occupational therapy if appropriate. Reason for Visit * Reason Comments Wrist Pain Encounter Details Date Type Department Care Team (Late st Contact Info) Description 10/01/2023 10:15 EST Walk-[facility] [address] [place], [place] [id number] Laverne Wise MD [address] [place] [address] Right wrist pain (Primary Dx) Social History [...] Sign Reading Time Taken Comments Blood Pressure 102/68 10/01/2023 1029 EST Pulse 91 10/01/2023 1029 EST Temperature 36.5 ??C (97.7 ??F) 10/01/2023 1029 EST Respiratory Rate 20 10/01/2023 1029 EST Oxygen Saturation 97% 10/01/2023 1029 EST Inhaled Oxygen Concentration - - Weight [...] documented in this encounter Patient Instructions * Attachments The following attachments cannot be sent through Care Everywhere. 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 She has had chronic pain in this wrist for a long time. No swelling noted. Covid Screening: In the last 72 hours, has the patient had: New or unusual cough, shortness of breath, new nasal congestion, sore throat, fever, chills, body aches, or new loss of taste or smell without a reasonable alternative diagnosis*? (If yes, assign to ARC)- NO In the past 10 days, has the patient had a positive Covid test OR a confirmed close Covid exposure (<6ft for > 15mins in 24hr period)? (if yes, assign to ARC, regardless of vaccination status)-NO *may be determined by RN or in discussion with available provider (GENERAL STUDIES PROGRAM CHAIR's and CCA's can defer to Charge Nurse to complete triage when appropriate) PCP: Livier Valdez * Laverne Wise MD - 10/01/2023 1015 EST [facility] Express Care Chief Complaint(s): Chief Complaint Patient presents with Wrist Pain Assessment & Plan: 1. Right wrist pain XR WRIST RIGHT 3 OR MORE VIEWS AMB CONS/FOLLOW UP PHYSICAL THERAPY - [facility] X-ray negative for acute findings. Will manage as acute flare of chronic tendinitis. She will continue to wear wrist brace to keep her wrist immobilized during the day. Should remove it and do gentlerange of motion at several points during the day. Referred to physical/Occupational Therapy for further management and guidance. She will likely needto reduce higher impact activities and gradually add them back, and would benefit from PT/OT guidance with this. If her pain is persistent and/or worsening in the next 2 to 4 weeks, would consider repeat follow-up and potential referral to Ortho to discuss if further workup is warranted. 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 She reports she has had on and off right wrist pain over the last several months to years. She had previously been very active, participating in power lifting competitions. She has a now 3-year-old, and notes that she had been less physically active. She been trying to get back into physical activity trying different things such as push-ups, different exercise classes including yoga and the above-mentioned aerial class. These activities tend to be painful to her right wrist. She is frustrated that this pain is limiting her from getting back into activity. No specific injury. [id number]. She started wearing a firm wrist brace with Velcro which does seem to help some. She tried an active release technique on her forearm that does seem to help as well to ROS: ROS Objective: Vitals and nursing notes reviewed Examination: BP 102/68 (BP Cuff Location: Left arm, BP Patient Position: Sitting, BP Cuff Sizes: Adult, long) Pulse 91 Temp 36.5 ??C (97.7 ??F) (Oral) Resp 20 SpO2 97% Physical Exam Constitutional: General: She is not in acute distress. Appearance: She is not ill-appearing. Musculoskeletal: Comments: Right wrist: Normal range of motion. Nonspecific tenderness of dorsum of wrist, mild snuffbox tenderness. No swelling appreciated. Normal bank cashier. Normal range of motion of phalanges. Neurological: Mental Status: She is alert. Comments: Sensation intact to light touch distal right upper extremity Data reviewed with patient (current and past results): Reviewed x-ray and x-ray report. An appropriate medical screening examination was performed. The patient was assessed prior to discharge and deemed stable for discharge home. This note may be in part documented using voice dictation software. Please forgive any errors or omissions that may result from use of dictation. * Laverne Wise MD - 10/01/2023 1015 EST PT sent a message that patient has plateaued with her physical therapy. Initial improvement though has plateaued. Per my previous note, consider Ortho referral if not improving. Ortho referral placed. documented in this encounter Miscellaneous Notes * Addendum Note - Laverne Wise MD - 10/01/2023 1015 ESTAddended by: LAVERNE WISE on: 12/04/2023 13:26 Modules accepted: Orders documented in this encounter Plan of Treatment Scheduled Referrals Name Type Priority Associated Diagnoses Order Schedule AMB CONS/FOLLOW UP PHYSICAL THERAPY - [facility] Outpatient Referral Routine/Next Available Right wrist pain Expected: 10/09/2023 (Approximate), Expires: 10/02/2024 AMB CONS/FOLLOW UP ORTHOPEDICS - [facility] Outpatient Referral Routine/Next Available Right wrist pain Expected: 12/11/2023 (Approximate), Expires: 12/03/2024 documented as of this encounter Procedures Procedure Name Priority Date/Time Associated Diagnosis Comments XR WRIST RIGHT 3 OR MORE VIEWS STAT 10/01/2023 11:00 EST Right wrist pain documented in this encounter Results * XR WRIST RIGHT 3 OR MORE VIEWS (10/01/2023 11:00 EST) Anatomical Region Laterality Modality Upper Extremities Right Computed Radio graphy 10/01/2023 11:2 4 EST Impressions 10/01/2023 11:24 EST No acute bone or joint abnormality. [id number] Narrative 10/01/2023 11:24 EST INDICATION: possible injury 2/16 right wrist; pain over dorsum and snuffbox.;M25.531:Right wrist pain. COMPARISON: None. TECHNIQUE: 4 views of the right wrist were obtained. FINDINGS: There are mild degenerative changes within the joints of the wrist. Bone density is normal. No fracture, dislocation or osteochondral defect is identified. If there is continued unexplained wrist pain then consider 7 to 10-day follow-up radiographic examination as clinically warranted. Procedure Note Nikhil Yarbrough MD - 10/01/2023 INDICATION: possible injury 2/16 right wrist; pain over dorsum andsnuffbox.;M25.531:Right wrist pain. COMPARISON: None. TECHNIQUE: 4 views of the right wrist were obtained. FINDINGS: There are mild degenerative changes within the joints of the wrist. Bonedensity is normal. No fracture, dislocation or osteochondral defect isidentified. If there is continued unexplained wrist pain then consider 7to 10-day follow-up radiographic examination as clinically warranted. IMPRESSION No acute bone or joint abnormality. [id number] Laverne Wise MD IMG DIAGNOSTIC IMAGING ORDERAB LES Final Result documented in this encounter Visit Diagnoses Diagnosis Right wrist pain- Primary Pain in joint, forearm documented in this encounter Care Teams Tool Rental Technician Relationship Specialty Start Date End Date Livier Valdez NP [address] [place], [place] [id number] PCP - General Family Medicine - Primary Care 10/28/22 Mary Montana MD [address] [place] [address] 03/25/19 documented as of this encounter
--- OUTSIDE RECORDS SUMMARY | 2024-09-15 00:25 | XMS_ITS | Encounter Summary ---
Author Organization [facility] Address [address] [place] [address] Care Team Providers Care Business Liaison Officer Name Role Phone Mary Montana MD Unavailable Livier Valdez NP Primary Care Provider [phone] Reason for Referral * Radiology Services (Routine/Next Available) - Authorization Not Required Specialty Diagnoses / Procedures Referred By Conteric t Referred To Contact Radiology Diagnoses Right wrist pain Right hand pain Procedures MR HAND WO CONTRAST RIGHT Eduin Hicks PA-C [address] [place] [address] Phone: tel: fax: [facility] Referral ID Status Reason Start Date Expiration Date Visits Requested Visits Authorized [id number] Authorization Not Required 01/02/2024 1 1 Reason for Visit * Reason Comments New Patient Visit * Consult (Routine/Next Available) - Authorization Not Required Specialty Diagnoses / Procedures Referred By Kenn t Referred To Contact Orthopedic Surgery Diagnoses Right wrist pain Laverne Sherman MD [address] [place] [address] Phone: tel: fax: [facility] [address], [address] [place] [address] Phone: tel: fax: Referral ID Status Reason Start Date Expiration Date Visits Requested Visits Authorized [id number] Authorization Not Required Specialty Services Required 4 1 1 Encounter Details Date Type Department Care Team (Late st Contact Info) Description 01/02/2024 13:00 EDT Office Visit [facility] [address] [place], [place] [address] Eduin Hicks PA-C [address] [place] [address] Right wrist pain (Primary Dx); Right hand pain Social History Tobacco Use Types Packs/Day Years [...] Progress Notes * Eduin Hicks PA-C - 01/02/2024 1300 EDT Jonathon presents today for an evaluation of her right wrist Referred from [facility] 10/01/23 per note right wrsit pain that worsened after aerial skill class lastweek. Pain on and off for last year Pain limiting her getting back to activity XR right wrist 10/01/23 IMPRESSION No acute bone or joint abnormality Months of PT with no relief Unable to put weight in her wrist Limited ROM No brace, does have some that she will wear when active Typing and riding motorcycle can cause discomfort No numbness Middle finger hurts most History of lifting weights and MMA PROBLEM: Right hand pain SUBJECTIVE: Jonathon Hall is a 38 y.o. right HD female who has had [...] uses a brace regularly with mixed benefit ROS: A 10-point review of systems has been documented on the patient intake form and reviewed by me. This will be scanned into their chart. PMHx, FHx, SHx: Reviewed in the patient chart. Social History Tobacco Use Smoking status: Former Smokeless tobacco: Never Substance Use Topics Alcohol use: Not Currently Comment: 1 x pr wk prior to Past Medical History: Diagnosis Date Abnormal Pap smear of cervix ADHD Back pain upper back pain, (when did this problem start?) 3 yrs ago Past Surgical History: Procedure Laterality Date ABDOMINOPLASTY BREAST ENHANCEMENT SURGERY CERVIX SURGERY ROTATOR CUFF REPAIR Right TUBAL LIGATION Current Outpatient Medications Medication Sig Dispense Refill Calcium-Cholecalciferol, D3, (CALCIUM 500 + D) 500 mg-10 mcg (400 unit) tablet Take 2 Tablets by mouth daily. (Patient not taking: Reported on 11/05/2023) 60 Tablet 11 hydrOXYzine (ATARAX) 10 mg tablet Take 1 Tablet by mouth 3 times daily as needed for Itching. (Patient not taking: Reported on 10/01/2023) lactobacillus rhamnosus, GG, (CULTURELLE) 10 billion cell capsule Take 1 Capsule by mouth daily. (Patient not taking: Reported on 11/05/2023) magnesium oxide (MAG-OX) 400 mg (241.3 mg magnesium) tablet Take 1 Tablet by mouth daily. methylphenidate HCl (RITALIN;METHYLIN) 5 mg tablet Take 2 Tablets by mouth daily. Patient reports 20mg Multivitamins with Minerals tablet tablet Take 1 Tablet by mouth daily. omeprazole (PRILOSEC) 20 mg capsule Take 1 Capsule by mouth daily. Take while on prednisone (Patient not taking: Reported on 10/01/2023) 15 Capsule 0 predniSONE (DELTASONE) 10 mg tablet 6tab/d x 5d, 5tab/d x 5days, 4tab/d x 5days, 3tab/d x 5days, 2tab/d x 5 days, 1tab/d x 5days then stop. (Patient not taking: Reported on 10/01/2023) 105 Tablet 0 sulfamethoxazole-trimethoprim (BACTRIM/CO-TRIMOXAZOLE DS) 800-160 mg per tablet Take 1 Tablet by mouth 2 times daily. (Patient not taking: Reported on 10/01/2023) 42 Tablet 0 No current facility-administered medications for this visit. Allergies Allergen Reactions Bupropion Other (See Comments) Other Reaction(s): Other (See Comments) Amantadine Other reaction(s): rash and fever Amitriptyline Other reaction(s): drowsiness Doxycycline Other (See Comments) Vasculitis Penicillin Other reaction(s): hives/fever OBJECTIVE: On physical exam, the patient is found to be a engaged and cooperative female. Psych: Alert and oriented with normal affect. Constitutional: Well-developed and in no significant distress. Eyes: Sclerae clear. Pulm: Breathing regular and nonlabored without audible wheezing. Skin: On examination of the right hand the skin is intact. Hem: There is no ecchymosis. Msk: Right hand is without deformity today. [...] appears well perfused withoutcyanosis or pallor. DIAGNOSTICS: Radiographs of right hand were ordered and taken in the office today. These were independently reviewed by me. No evidence of acute bony injury there is cortical irregularity at the proximal phalanx of the pointer finger. Degenerative changes are noted at the first CMC joint. No evidence of scaphoid fracture ASSESSMENT: Right hand pain PLAN: We discussed her symptoms. We reviewed her examination and her imaging studies. It seems thattemo may have nerve injury potentially related to previous trauma. I think it would be reasonable toobtain an MRI scan to evaluate the cortical irregularity as well as the MCP joint and ensure there is no cystic lesion potentially causing nerve irritation will follow-up after her MRI scan documented in this encounter Plan of Treatment Not on file documented as of this encounter Procedures Procedure Name Priority Date/Time Associated Diagnosis Comments MR HAND WO CONTRAST RIGHT Routine 02/17/2024 21:28 EDT Right wrist pain Right hand pain XR WRIST RIGHT 3 OR MORE VIEWS Routine 01/02/2024 14:08 EDT Right wrist pain documented in this encounter [...] above interpretation and agree with the findings. [id number] Narrative 02/19/2024 8:28 EDT Exam/Technique: MR HAND [...] radiocarpal and pisotriquetral joints. Resulting Agency Comment [id number] Procedure Note Eduin Arguelles, DO - 02/19/2024 [...] the above interpretation andagree with the findings. [id number] us Eduin Hicks PA-C IMG MRI ORDERABLES Gissell l Result * XR WRIST RIGHT 3 OR MORE VIEWS (01/02/2024 14:08 EDT) Anatomical Region Laterality Modality Upper Extremities Right Computed Radio graphy 01/02/2024 13:0 6 EDT Impressions 01/06/2024 10:18 EDT Normal wrist. THIS DOCUMENT HAS BEEN ELECTRONICALLY SIGNED BY MELE NOWAK MD FOR ANY QUESTIONS OR CONCERNS REGARDING THIS REPORT PLEASE CALL [facility] AT [phone] Narrative 01/06/2024 10:18 EDT PROCEDURE INFORMATION: Exam: XR Right Wrist Exam date and time: 01/02/2024 1:06 PM Age: 38 years old Clinical indication: Pain in right wrist; Additional info: Wrist pain TECHNIQUE: Imaging protocol: Radiologic exam of the right wrist. Views: 3 or more views. COMPARISON: CR XR WRIST RIGHT 3 OR MORE VIEWS 10/01/2023 10:55 AM FINDINGS: Bones/joints: radial ulnar joint is normal. Carpus is normal. Metacarpals normal. Visualized portions of the phalanges normal. No triquetral fracture. Soft tissues: Normal. Procedure Note Mele Nowak MD - 01/06/2024 PROCEDURE INFORMATION: Exam: XR Right Wrist Exam date and time: 01/02/2024 1:06 PM Age: 38 years old Clinical indication: Pain in right wrist; Additional info: Wrist pain TECHNIQUE: Imaging protocol: Radiologic exam of the right wrist. Views: 3 or more views. COMPARISON: CR XR WRIST RIGHT 3 OR MORE VIEWS 10/01/2023 10:55 AM FINDINGS: Bones/joints: radial ulnar joint is normal. Carpus is normal. Metacarpals normal. Visualized portions of the phalanges normal. No triquetral fracture. Soft tissues: Normal. IMPRESSION Normal wrist. THIS DOCUMENT HAS BEEN ELECTRONICALLY SIGNED BY MELE NOWAK MD FOR ANY QUESTIONS OR CONCERNS REGARDING THIS REPORT PLEASE CALL [facility] [phone] Eduin Hicks PA-C [facility] DIAGNOSTIC IMAGING ORDERABLES Final Result documented in this encounter Visit Diagnoses Diagnosis Right wrist pain- Primary Pain in joint, forearm Right hand pain Pain in limb documented in this encounter Care Teams Business Liaison Officer Relationship Specialty Start Date End Date Livier Valdez NP [address] [place], [place] [address] PCP - General Family Medicine - Primary Care 10/28/22 Mary Montana MD [address] [place] [phone] 03/25/19 documented as of this encounter
--- OUTSIDE RECORDS SUMMARY | 2024-09-15 00:25 | XMS_ITS | Encounter Summary ---
Author Organization [facility] Address [address] [place] [address] Care Team Providers Care Mold Setter Name Role Phone Mary Montana MD Unavailable Livier Valdez NP Primary Care Provider [phone] Encounter Details Date Type Department Care Team (Latest Contact Info) Description 12/02/2023 17:36 EDT - 12/02/2023 23:[address] [facility] - Main [place] [address] [place], [place] [address] [facility] Discharge Disposition: Home or Self Care Social [...] on filedocumented in this encounter Care Teams Mold Setter Relationship Specialty Start Date End Date Livier Valdez, MARLINE [address] [place] [address] PCP - General Family Medicine - Primary Care 10/28/22 Mary Montana MD [address] [place] [phone] 03/25/19 documented as of this encounter
--- OUTSIDE RECORDS SUMMARY | 2024-09-15 00:25 | XMS_ITS | Encounter Summary ---
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 Currently, she is experiencing similar symptoms to this, small red bumps, and wants to make sure it is not reoccurringPatient also states that she is having hanging moles on neck/armpits and is wondering if there is advice how to prevent or remove these Encounter Details Date Type Department Care Team (Late st Contact Info) Description 11/05/2023 16:00 EDT Office Visit [facility] Dermatology 5th Floor [facility] [address] [place] [address] Joan Singletary MD [address] [place] [address] [place] [phone] Rash (Primary Dx); Hemangioma of skin; Post-inflammatory hyperpigmentation; Skin tags, multiple acquired Social History Tobacco Use Types Packs/Day Years [...] documented in this encounter Progress Notes * Joan Singletary MD - 11/05/2023 1600 EDT Dermatology Outpatient Visit Note Chief Complaint Patient presents with Follow-up Patient has previously had vasculitis Currently, she is experiencing similar symptoms to this, small red bumps, and wants to make sure itis not reoccurring Patient also states that she is having hanging moles on neck/armpits and is wondering if there is advice how to prevent or remove these Dermatologic History: # LCV 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 female who presents for small red bumps on legs Patient has previously had vasculitis Currently, she is experiencing similar symptoms to this, small red bumps, and wants to make sure itis not reoccurring Patient also states that she is having hanging moles on neck/armpits and is wondering if there is advice how to prevent or remove these OBJECTIVE: A focused exam of the armpits, legs was performed. Skin colored pedunculated papule Areas of hyperpigmented patches in previous areas of inflammation Red and pink bland sub milimeter papules ASSESSMENT & PLAN: Rash [place] bland sub mm papules, reports it was itchy Possible arthropod, not obviously red or spreading, not likely the same vasculitis as last time Patient has triamcinolone at home and can use as needed for itching Hemangioma of skin - discussed benign appearing nature - removal is not necessary unless symptomatic Post-inflammatory hyperpigmentation - from previous vasculitis - continue compression socks Skin tags, multiple acquired - discussed benign appearing nature - removal is not necessary unless symptomatic Other orders - Multivitamins with Minerals tablet tablet; Take 1 Tablet by mouth daily. - magnesium oxide (MAG-OX) 400 mg (241.3 mg magnesium) tablet; Take 1 Tablet by mouth daily. FOLLOW UP: Return if symptoms worsen or fail to improve. Joan Singletary MD 11/05/2023 16:08 documented in this encounter Plan of Treatment Not on file documented as of this encounter Visit Diagnoses Diagnosis Rash- Primary Rash and other nonspecific skin eruption Hemangioma of skin Hemangioma of skin and subcutaneous tissue Post-inflammatory hyperpigmentation Dyschromia, unspecified Skin tags, multiple acquired documented in this encounter Historical Medications * This list may reflect changes made after this encounter. magnesium oxide (MAG-OX) 400 mg (241.3 mg magnesium) tablet Take 1 Tablet by mouth daily. Multivitamins with Minerals tablet tablet Take 1 Tablet by mouth daily. added in this encounter Care Teams Kiln Stacker Relationship Specialty Start Date End Date Livier Valdez NP [address] [place] [address] PCP - General Family Medicine - Primary Care 10/28/22 Mary Montana MD [address] [place] [phone] 03/25/19 documented as of this encounter
--- OUTSIDE RECORDS SUMMARY | 2024-09-15 00:25 | XMS_ITS | Encounter Summary ---
Author Organization [facility] Address [address] [place] [address] Care Team Providers Care Electrician Locomotive Name Role Phone Mary Montana MD Unavailable Livier Valdez RN MED SURG Primary Care Provider [phone] Encounter Details Date Type Department Care Team (Late st Contact Info) Description 09/03/2023 Orders Only [facility] [place] [address] [place] [address] Ric Pond Social History Tobacco Use Types Packs/Day Years [...] on filedocumented in this encounter Care Teams Electrician Locomotive Relationship Specialty Start Date End Date Livier Valdez NP [address] [place] [address] PCP - General Family Medicine - Primary Care 10/28/22 Mary Montana MD [address] [place] [address] 03/25/19 documented as of this encounter
--- OUTSIDE RECORDS SUMMARY | 2024-09-15 00:25 | XMS_ITS | Encounter Summary ---
Author Organization [facility] Address [address] [place] [address] Care Team Providers Care Producer Arborist Manager Name Role Phone Mary Montana MD Unavailable Livier Valdez NP Primary Care Provider [phone] Encounter Details Date Type Department Care Team (Late st Contact Info) Description 11/03/2023 13:35 EDT Phlebotomy Only [facility] - Outpatient Phlebotomy Drawing [address] [place] [address] Lab, [facility] [place] Op Phlebotomy Hyperthyroidism Social History Tobacco Use Types Packs/Day Years [...] Date of Assessment Author No 06/20/2023 8:46 Parish Fowler RN * Because of a physical, mental, [...] Procedure Name Priority Date/Time Associated Diagnosis Comments THYROID-STIMULATING IMMUNOGLOBULIN (TSI), SERUM Routine 11/03/2023 13:47 EDT Hyperthyroidism THYROPEROXIDASE ANTIBODY Routine 11/03/2023 13:47 EDT Hyperthyroidism T3 FREE Routine 11/03/2023 13:47 EDT Hyperthyroidism TSH Routine 11/03/2023 13:47 EDT Hyperthyroidism T4 FREE Routine 11/03/2023 13:47 EDT Hyperthyroidism documented in this encounter Results * THYROID-STIMULATING IMMUNOGLOBULIN (TSI), SERUM (11/03/2023 13:47 EDT) Thyroid-Stimulati ng Immunoglobin, S <1.0 <=1.3 TSI index 11/05/2023 15:32 EDT [facility] Comment: Test Performed by: [facility] [place] [address] Quail Farmer: Wan Rodriguez M.D. Ph.D.; CLIA# [id number] Blood VENOUS BLOOD / Unknown Venipuncture / Unknown 11/03/2023 13:47 EDT 11/03/2023 14:21 EDT us Natalia Lang MD CHEMISTRY & BLOOD GAS ORDERABL ES Final Result [facility] [address] [place] [address] * THYROPEROXIDASE ANTIBODY (11/03/2023 13:47 EDT) Thyroperoxidase Ab 30 <=60 U/mL 2023 23:25 EDT [facility] Blood VENOUS BLOOD / Unknown Venipuncture / Unknown 11/03/2023 13:47 EDT 11/03/2023 14:20 EDT Natalia Lang MD CHEMISTRY & BLOOD GAS ORDERABL ES Final Result Performing Organization Address City/[facility]/ZIP Co de Phone Number [facility] [address] [place] [address] * T3 FREE (11/03/2023 13:47 EDT) T3, Free 4.1 2.8 - 5.3 pg/mL 11/03/2023 23:04 EDT [facility] Blood VENOUS BLOOD / Unknown Venipuncture / Unknown 11/03/2023 13:47 EDT 11/03/2023 14:20 EDT us Natalia Lang MD CHEMISTRY & BLOOD GAS ORDERABL ES Final Result Performing Organization Address City/[facility]/ZIP Co de Phone Number [facility] [address] [place] [address] * T4 FREE (11/03/2023 13:47 EDT) T4, Free 1.0 0.8 - 2.2 ng/dL 11/03/2023 15:10 EDT [facility] Blood VENOUS BLOOD / Unknown Venipuncture / Unknown 11/03/2023 13:47 EDT 11/03/2023 14:21 EDT us Natalia Lang MD CHEMISTRY & BLOOD GAS ORDERABL ES Final Result Performing Organization Address City/[facility]/ZIP Co de Phone Number [facility] [address] [place] [address] * TSH (11/03/2023 13:47 EDT) TSH 0.63 0.47 - 4.68 mIU/L 11/03/2023 15:24 EDT [facility] Blood VENOUS BLOOD / Unknown Venipuncture / Unknown 11/03/2023 13:47 EDT 11/03/2023 14:21 EDT Narrative [facility] - 11/03/2023 15:24 EDT The results of this assay can be falsely lowered due to the consumption of Biotin. us Natalia Lang MD CHEMISTRY & BLOOD GAS ORDERABL ES Final Result Performing Organization Address [facility] Co de Phone Number [facility] [address] [place] [address] documented in this encounter Visit Diagnoses Diagnosis Hyperthyroidism Thyrotoxicosis without mention of goiter or other cause, without mention of thyrotoxic crisis or storm documented in this encounter Care Teams Producer Arborist Manager Relationship Specialty Start Date End Date Livier Valdez NP [address] [place], [place] [address] PCP - General Family Medicine - Primary Care 10/28/22 Mary Montana MD [address] [place] [phone] 03/25/19 documented as of this encounter
--- OUTSIDE RECORDS SUMMARY | 2024-09-15 00:25 | XMS_ITS | Encounter Summary ---
Author Organization [facility] Address [address] [place] [address] Care Team Providers Care Scrap Sorter Name Role Phone Mary Montana MD Unavailable Livier Valdez NP Primary Care Provider [phone] Encounter Details Date Type Department Care Team (Late st Contact Info) Description 01/21/2024 Lab Requisition [facility] Pathology & Laboratory Medicine - [address] [address] Leighton Romero MD [address] [place] [address] [place] [address] Encounter for screening for malignant neoplasm of cervix Social History Tobacco Use Types Packs/Day Years [...] Procedure Name Priority Date/Time Associated Diagnosis Comments PAP TEST Today 01/20/2024 8:32 EDT Encounter for screening for malignant neoplasm of cervix HPV DNA DETECTION WITH GENOTYPING, PCR Today 01/20/2024 8:32 EDT Encounter for screening for malignant neoplasm of cervix documented in this encounter Results * HUMAN PAPILLOMAVIRUS (HPV) DETECTION-HIGH RISK TYPES (01/20/2024 8:32 EDT) HPV other High Risk types, PCR Negative Negative 01/28/2024 15:00 EDT [facility] Comment:No E6 or E7 mRNA is detected from HPV types 16,18,31,33,35,39,45,51,52,56,58,59,66, and 68 by newcomer hostess mediated amplification. Pap Test CERVIX UTERI STRUCTURE / Unknown 01/20/2024 8:32 EDT 01/27/2024 13:15 EDT us Leighton Romero MD MICROBIOLOGY - GENERAL ORDERA BLES Final Result [facility] [address] [place] [id number] * PAP TEST (01/20/2024 8:32 EDT) Specimens A. Cervix and/or Endocervix , ThinPrep Imaging System with Manual Evaluation 01/28/2024 15:00 EDT [facility] Specimen Adequacy Satisfactory for Evaluation - transformation zone component present 01/28/2024 15:00 EDT [facility] General Categorization Negative for intraepithelial lesion or malignancy 01/28/2024 15:00 EDT [facility] Attestation . 01/28/2024 15:00 EDT [facility] at 1500 Clinical History SEE BELOW 01/28/20 15:00 EDT [facility] HPV The result for the Human Papillomavirus (HPV) Detection-High Risk Types is Negative. No E6 or E7 mRNA is detected from HPV types 16,18,31,33,35,39 ,45,51,52,56,58,5 9,66, and 68 by newcomer hostess mediated amplification.Caprice ting was performed on specimen [id number] and was resulted on 01/28/2024 1500 EDT by RICKY, LAB INSTRUMENT RESULTS IN 01/28/2024 15:00 EDT [facility] Performing Lab [facility] 01/28/2024 15:00 EDT [facility] Scanned Images 01/28/2024 15:00 EDT [facility] Pap Test CERVIX UTERI STRUCTURE / Unknown 01/20/2024 8:32 EDT 01/22/2024 11:54 EDT us Leighton Romero MD PATHOLOGY ORDERABLES Final Re sult [facility] [address] [place] [address] documented in this encounter Visit Diagnoses Diagnosis Encounter for screening for malignant neoplasm of cervix Screening for malignant neoplasm of the cervix documented in this encounter Care Teams Scrap Sorter Relationship Specialty Start Date End Date Livier Valdez NP [address] [place] [address] PCP - General Family Medicine - Primary Care 10/28/22 Mary Montana MD [address] [place] [phone] 03/25/19 documented as of this encounter
--- OUTSIDE RECORDS SUMMARY | 2024-09-15 00:25 | XMS_ITS | Encounter Summary ---
Author Organization [facility] Address [address] [place] [address] Care Team Providers Care Mine Expert Name Role Phone Mary Montana MD Unavailable Livier Valdez NP Primary Care Provider [phone] Reason for Visit * Reason Onset Date Comments New/Evolving Symptoms 11/03/2023 Encounter Details Date Type Department Care Team (Late st Contact Info) Description 11/03/2023 Telephone [facility] Dermatology 5th Floor [facility] [address] [place], [place] [phone] Matt Marcum MD [address] [place], [place] [address] New/Evolving Symptoms Social History Tobacco Use Types [...] encounter Miscellaneous Notes * Telephone Encounter - Jacqueline Kumar RN - 11/03/2023 1209 EDT Pt reports potential vasculitis flare on bilateral feet. Has a couple pimple like spots on each foot. No bleeding or drainage. Itchy, but not painful. No fever or chills. Reports an increase in nervepain in feet which has made them feel sore. Has remnants of previous spots so it's difficult to seewhat's going on. Skin on feet feel braille. Patient is scheduled for an office visit on 11/05/23 with Joan Singletary MD. Appointment details provided to pt. Patient verbalized understanding. No barriers to learning. 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 Patient completed Rash Triage. Location: Currently on feet How long it's been present for: Noticed it coming back about three days ago Sensation (itchy, burning, painful, etc): Currently having stomach trouble and painful when walking. Appearance (blotchy, red, bumpy, etc): 10 different tiny little pimple (like how it started before) Still has scars knee down from last flare (looks like leopard print) Using anything for it? (OTC, Rx): Nothing, wearing compression socks and taking ibuprofen Patient was offered 11/03/23 at 11am with (ok per britany) patient declined appointment due to conflict tomorrow morning. Patient confirmed mobile number as preferred. Thank you!! documented in this encounter Plan of Treatment Not on file documented as of this encounter Visit Diagnoses Not on filedocumented in this encounter Care Teams Mine Expert Relationship Specialty Start Date End Date Livier Valdez NP [address] [place] [address] PCP - General Family Medicine - Primary Care 10/28/22 Mary Montana MD [address] [place] [address] 03/25/19 documented as of this encounter
--- OUTSIDE RECORDS SUMMARY | 2024-09-15 00:25 | XMS_ITS | Encounter Summary ---
Author Organization [facility] Address [address] [place] [address] Care Team Providers Care Highway Construction Inspector Name Role Phone Mary Montana MD Unavailable Livier Valdez HOTEL SERVICES SUPERVISOR Primary Care Provider Encounter Details Date Type Department Care Team (Latest Contact Info) Description 06/20/2023 Travel Social History Tobacco Use Types Packs/Day Years [...] of Assessment Author No 06/20/2023 8:46 EST Grey, A nthony, RN * Because of a physical, mental, [...] on filedocumented in this encounter Care Teams Highway Construction Inspector Relationship Specialty Start Date End Date Livier Valdez NP [address] [place] [address] PCP - General Family Medicine - Primary Care 10/28/22 Mary Montana MD [address] [place] [phone] 03/25/19 documented as of this encounter
--- OUTSIDE RECORDS SUMMARY | 2024-09-15 00:25 | XMS_ITS | Encounter Summary ---
Author Organization [facility] Address [address] [place] [address] Care Team Providers Care Supervisor [employer] Farming Name Role Phone Mary Montana MD Unavailable Livier Valdez NP Primary Care Provider [phone] Encounter Details Date Type Department Care Team (Late st Contact Info) Description 10/14/2023 10:40 EST Phlebotomy Only [facility] - Outpatient Phlebotomy Drawing [address] [place] [address] Lab, [facility] [place] Op Phlebotomy Hyperglycemia; Hyperlipidemia, unspecified hyperlipidemia type; Encounter for screening [...] of Assessment Author No 06/20/2023 8:46 EST [facility] RN * Because of a physical, mental, [...] Procedure Name Priority Date/Time Associated Diagnosis Comments SYPHILIS RPR SCREEN W/REFLEX Routine 10/14/2023 10:43 EST Encounter for screening for infections with predominantly sexual mode of transmission VITAMIN D (25,OH) Routine 10/14/2023 10: 43 EST Vitamin D deficiency COMPLETE BLOOD COUNT AND DIFFERENTIAL Routine 10/14/2023 10:43 EST Other fatigue HIV 1/2 ANTIGEN AND ANTIBODY, 4TH GENERATION Routine 10/14/2023 10:43 EST Encounter for screening for infections with predominantly sexual mode of transmission T3 FREE Routine 10/14/2023 10:43 EST Other fatigue TSH Routine 10/14/2023 10:43 EST Other fatigue T4 FREE Routine 10/14/2023 10:43 EST Other fatigue MAGNESIUM Routine 10/14/2023 10:43 EST Other fatigue HEMOGLOBIN A1C Routine 10/14/2023 10:43 EST Hyperglycemia VITAMIN B12 Routine 10/14/2023 10:43 EST Amnesia LIPID PROFILE (INCLUDES CHOLESTEROL, TRIGLYCERIDES, HDL, LDL) Routine 10/14/2023 10:43 EST Hyperlipidemia, unspecified hyperlipidemia type COMPREHENSIVE METABOLIC PANEL (CMP) Routine 10/14/2023 10:43 EST Other fatigue documented in this encounter Results * VITAMIN B12 (10/14/2023 10:43 EST) Vitamin B12 894 211 - 911 pg/mL 10/14/2023 12:59 EST [facility] Blood VENOUS BLOOD / Unknown Venipuncture / Unknown 10/14/2023 10:43 EST 10/14/2023 11:37 EST Narrative [facility] - 10/14/2023 12:59 EST The results of this assay can be falsely elevated due to the consumption of Biotin. Livier Valdez [employer] CHEMISTRY & BLOOD GAS ORDERABLES Final Result [facility] [address] [place] [address] * T3 FREE (10/14/2023 10:43 EST) T3, Free 4.1 2.8 - 5.3 pg/mL 10/14/2023 21:22 EST [facility] Blood VENOUS BLOOD / Unknown Venipuncture / Unknown 10/14/2023 10:43 EST 10/14/2023 11:37 EST Livier Valdez NP CHEMISTRY & BLOOD GAS ORDERABLES Final Result [facility] [address] [place] [address] * T4 FREE (10/14/2023 10:43 EST) T4, Free 1.0 0.8 - 2.2 ng/dL 10/14/2023 12:26 EST [facility] Blood VENOUS BLOOD / Unknown Venipuncture / Unknown 10/14/2023 10:43 EST 10/14/2023 11:37 EST Livier Valdez [employer] CHEMISTRY & BLOOD GAS ORDERABLES Final Result Performing Organization Address [facility] Co de Phone Number [facility] [address] [place] [address] * (ABNORMAL) TSH (10/14/2023 10:43 EST) Pathologist [facility] TSH 0.26(L) 0.47 - 4.68 mIU/L 10/14/2023 12:39 EST [facility] Blood VENOUS BLOOD / Unknown Venipuncture / Unknown 10/14/2023 10:43 EST 10/14/2023 11:37 EST Narrative [facility] - 10/14/2023 12:39 EST The results of this assay can be falsely lowered due to the consumption of Biotin. Livier Valdez [employer] CHEMISTRY & BLOOD GAS ORDERABLES Final Result Performing Organization Address [facility] de Phone Number [facility] [address] [place] [address] * COMPREHENSIVE METABOLIC PANEL (CMP) (10/14/2023 10:43 EST) Pathologist [facility] Sodium 138 136 - 145 mmol/L 10/14/2023 12:07 [facility] Potassium 4.2 3.5 - 5.0 mmol/L 10/14/2023 12:07 [facility] Chloride 105 96 - 110 mmol/L 10/14/2023 12:07 [facility] CO2 Total 24 22 - 32 mmol/L 10/14/2023 12:07 [facility] Glucose 87 70 - 99 mg/dl 10/14/2023 12:07 [facility] BUN 13 10 - 26 mg/dL 10/14/2023 12:07 [facility] Creatinine 0.74 0.52 - 1.04 mg/dL 10/14/2023 12:07 [facility] eGFR 105 >60 mL/min/1.7 3m2 10/14/2023 12:07 [facility] Total Protein 7.2 6.3 - 8.2 g/dL 10/14/2023 12:07 [facility] Albumin 4.2 3.4 - 4.9 g/dL 10/14/2023 12:07 [facility] Alkaline Phosphatase 65 38 - 126 U/L 10/14/2023 12:07 [facility] AST 30 15 - 46 U/L 10/14/2023 12:07 [facility] ALT 34 <35 U/L 10/14/2023 12:07 [facility] Bilirubin, Total 0.6 <1.4 mg/dL 10/14/19 12:07 [facility] Calcium 9.2 8.5 - 10.5 mg/dL 10/14/2023 12:07 [facility] Albumin/Globulin Ratio 1.4 1.0 - 2.5 10/14/2023 12:07 [facility] Anion Gap 9 5 - 14 mmol/L 10/14/2023 12:07 [facility] Blood VENOUS BLOOD / Unknown Venipuncture / Unknown 10/14/2023 10:43 EST 10/14/2023 11:37 EST us Livier Valdez NP CHEMISTRY & BLOOD GAS ORDERABLES Final Result Performing Organization Address City/State/[facility] Co de Phone Number [facility] [address] [place] [address] * COMPLETE BLOOD COUNT AND DIFFERENTIAL (10/14/2023 10:43 EST) WBC 7.11 4.00 - 12.40 K/cmm 10/14/2023 11:45 [facility] RBC 5.03 3.86 - 5.04 M/cmm 10/14/2023 11:45 [facility] Hemoglobin 13.9 11.6 - 15.2 g/dL 10/14/2023 11:45 [facility] HCT 42.1 34.9 - 44.4 % 10/14/2023 11:45 [facility] MCV 84 81 - 98 fL 10/14/2023 11:45 [facility] MCH 27.6 26.7 - 33.3 pg 10/14/2023 11:45 [facility] MCHC 33.0 32.1 - 35.9 g/dL 10/14/2023 11:45 [facility] RDW-CV 12.4 <14.7 % 10/14/2023 11:45 [facility] RDW-SD 37.7 <50.4 fl 10/14/2023 11:45 [facility] PLT 356 141 - 377 K/cmm 10/14/2023 11:45 [facility] MPV 10.1 9.5 - 12.7 fL 10/14/2023 11:45 [facility] % Neutrophils 47.8 % 10/14/2023 11:45 [facility] % Lymphocytes 42.2 % 10/14/2023 11:45 [facility] % Monocytes 6.5 % 10/14/2023 11:45 [facility] % Eosinophils 2.5 % 10/14/2023 11:45 [facility] % Basophils 0.6 % 10/14/2023 11:45 [facility] % Immature Grans 0.4 % 10/14/19 11:45 [facility] Absolute Neutrophils 3.40 2.20 - 8.85 K/cmm 10/14/2023 11:45 [facility] Absolute Lymphocytes 3.00 1.09 - 3.30 K/cmm 10/14/2023 11:45 [facility] Absolute Monocytes 0.46 0.10 - 0.80 K/cmm 10/14/2023 11:45 [facility] Absolute Eosinophils 0.18 0.03 - 0.61 K/cmm 10/14/2023 11:45 [facility] ABS Basophils 0.04 0.01 - 0.11 K/cmm 10/14/2023 11:45 [facility] Absolute Immature Grans 0.03 0.00 - 0.06 K/cmm 10/14/2023 11:45 EST [facility] Type of Differential: Auto 10/14/2023 11:45 EST [facility] Blood VENOUS BLOOD / Unknown Venipuncture / Unknown 10/14/2023 10:43 EST 10/14/2023 11:35 EST us Livier Vladez [employer] PACKAGES & DNA PROBE ORDERABLES Final Result Performing Organization Address City/[facility]/ZIP Co de Phone Number [facility] [address] [place] [address] * MAGNESIUM (10/14/2023 10:43 EST) [facility] Magnesium 2.1 1.7 - 2.8 mg/dL 10/14/2023 12:07 EST [facility] Blood VENOUS BLOOD / Unknown Venipuncture / Unknown 10/14/2023 10:43 EST 10/14/2023 11:37 EST us Livier Valdez [employer] CHEMISTRY & BLOOD GAS ORDERABLES Final Result Performing Organization Address [facility] Co de Phone Number [facility] [address] [place] [address] * VITAMIN D (25,OH) (10/14/2023 10:43 EST) [facility] 25OH Vitamin D Tot 52 30 - 100 ng/mL 10/14/2023 12:26 EST [facility] Blood VENOUS BLOOD / Unknown Venipuncture / Unknown 10/14/2023 10:43 EST 10/14/2023 11:37 EST us Livier Valdez [employer] CHEMISTRY & BLOOD GAS ORDERABLES Final Result Performing Organization Address City/[facility] Co de Phone Number [facility] [address] [place] [address] * HIV 1/2 ANTIGEN AND ANTIBODY, 4TH GENERATION (10/14/2023 10:43 EST) [facility] HIV 1 and 2 Antibody/p24 Antigen, 4th Generation Negative Negative 10/14/2023 12:44 [facility] Comment:If acute HIV-1 infec tion is suspected in a high risk patient, submit plasma specimen for HIV-1 RNA quantitation test. Blood VENOUS BLOOD / Unknown Venipuncture / Unknown 10/14/2023 10:43 EST 10/14/2023 11:37 EST us Livier Valdez [employer] IMMUNOLOGY AND SEROLOGY ORDERABL ES Final Result Performing Organization Address [facility] Co de Phone Number [facility] [address] [place] [address] * SYPHILIS RPR SCREEN W/REFLEX (10/14/2023 10:43 EST) Rapid Plasma Reagin Screen (RPR) Nonreactive Nonreactive 10/16/2023 10:52 [facility] Blood VENOUS BLOOD / Unknown Venipuncture / Unknown 10/14/2023 10:43 EST 10/14/2023 11:37 EST us Livier Valdez [employer] IMMUNOLOGY AND SEROLOGY ORDERABL ES Final Result Performing Organization Address [facility] [address] [place] [address] * (ABNORMAL) LIPID PROFILE (INCLUDES CHOLESTEROL, TRIGLYCERIDES, HDL, LDL) (10/14/2023 10:43 EST) Cholesterol 199 <200 mg/dL 10/14/2023 12:07 [facility] Comment:Note that therapeuti c goals will differ between patients based on cardiac risk factors and current medical therapy. HDL 43(L) >=50 mg/dl 10/14/2023 12:07 [facility] Comment:Note that therapeuti c goals will differ between patients based on cardiac risk factors and current medical therapy. LDL, Calculated 136 <160 mg/dL 12:07 [facility] Comment:Note that therapeuti c goals will differ between patients based on cardiac risk factors and current medical therapy. Triglyceride 102 <=150 mg/dL 10/14/2023 12:07 [facility] Comment:Note that therapeuti c goals will differ between patients based on cardiac risk factors and current medical therapy. Chol/HDL Ratio 4.6 See Note 10/14/2023 12:07 [facility] Comment: NOTE: Desirable Ratio = <4.1 Patient At Risk Ratio = >5.0(Males) ?>6.0(Females) Non HDL Cholesterol 156 <160 mg/dL 10/14/2023 12:07 [facility] Comment:Note that therapeuti c goals will differ between patients based on cardiac risk factors and current medical therapy. Blood VENOUS BLOOD / Unknown Venipuncture / Unknown 10/14/2023 10:43 EST 10/14/2023 11:37 EST us Livier Valdez NP CHEMISTRY & BLOOD GAS ORDERABLES Final Result Performing Organization Address [facility] Phone Number [facility] [address] [place] [address] * HEMOGLOBIN A1C (10/14/2023 10:43 EST) Hemoglobin A1c 5.1 <5.7 % 10/14/2023 12:19 [facility] Comment: Glycemic Status References: Normal: ??<5.7% Pre-Diabetes: ??5.7% - 6.4% Diagnostic of Diabetes: ??> or = 6.5% (if confirmed) Est Avg Glucose 100 mg/dL 12:19 [facility] Comment:The eAG represents t he A1c result expressed as average glucose in mg/dL. Blood VENOUS BLOOD / Unknown Venipuncture / Unknown 10/14/2023 10:43 EST 10/14/2023 11:35 EST Livier Valdez NP CHEMISTRY & BLOOD GAS ORDERABLES Final Result Performing Organization Address [facility] de Phone Number [facility] [address] [place] [address] documented in this encounter Visit Diagnoses Diagnosis Hyperglycemia Other abnormal glucose Hyperlipidemia, unspecified hyperlipidemia type Encounter for screening for infections with predominantly sexual mode of transmission Screening examination for venereal disease Vitamin D deficiency Unspecified vitamin D deficiency Other fatigue Amnesia Memory loss documented in this encounter Care Teams Supervisor [employer] Relationship Specialty Start Date End Date Livier Valdez NP [address] [place] [address] PCP - General Family Medicine - Primary Care 10/28/22 Mary Montana MD [address] [place] [address] 03/25/19 documented as of this encounter
--- OUTSIDE RECORDS SUMMARY | 2024-09-15 00:25 | XMS_ITS | Encounter Summary ---
Author Organization [facility] Address [address] [place] [address] Care Team Providers Care Lead Java Programmer Name Role Phone Mary Montana MD Unavailable Livier Valdez NP Primary Care Provider [phone] Encounter Details Date Type Department Care Team (Latest Contact Info) Description 10/22/2023 Community [facility] [address] [place] [address] Natalia Lang MD [address] [place] [address] Hyperthyroidism (Primary Dx) Social History Tobacco Use Types [...] documented as of this encounter Results * THYROID-STIMULATING IMMUNOGLOBULIN (TSI), SERUM (11/03/2023 13:47 EDT) Thyroid-Stimulati ng Immunoglobin, S <1.0 <=1.3 TSI index 11/05/2023 15:32 EDT [facility] Comment: Test Performed by: [facility] [place] [address] Sheet Metal Worker Apprentice: Wan Rodriguez M.D. Ph.D.; CLIA# [id number] Blood VENOUS BLOOD / Unknown Venipuncture / Unknown 11/03/2023 13:47 EDT 11/03/2023 14:21 EDT us Natalia Lang MD CHEMISTRY & BLOOD GAS ORDERABL ES Final Result [facility] [address] [place] [address] * THYROPEROXIDASE ANTIBODY (11/03/2023 13:47 EDT) Thyroperoxidase Ab 30 <=60 U/mL 2023 23:25 EDT [facility] Blood VENOUS BLOOD / Unknown Venipuncture / Unknown 11/03/2023 13:47 EDT 11/03/2023 14:20 EDT us Natalia Lang MD CHEMISTRY & BLOOD GAS ORDERABL ES Final Result [facility] [address] [place] [address] * T3 FREE (11/03/2023 13:47 EDT) T3, Free 4.1 2.8 - 5.3 pg/mL 11/03/2023 23:04 EDT [facility] Blood VENOUS BLOOD / Unknown Venipuncture / Unknown 11/03/2023 13:47 EDT 11/03/2023 14:20 EDT us Natalia Lang MD CHEMISTRY & BLOOD GAS ORDERABL ES Final Result Performing Organization Address [facility] Co de Phone Number [facility] [address] [place] [address] * T4 FREE (11/03/2023 13:47 EDT) T4, Free 1.0 0.8 - 2.2 ng/dL 11/03/2023 15:10 EDT [facility] Blood VENOUS BLOOD / Unknown Venipuncture / Unknown 11/03/2023 13:47 EDT 11/03/2023 14:21 EDT us Natalia Lang MD CHEMISTRY & BLOOD GAS ORDERABL ES Final Result [facility] [address] [place] [address] * TSH (11/03/2023 13:47 EDT) TSH 0.63 0.47 - 4.68 mIU/L 11/03/2023 15:24 EDT [facility] Blood VENOUS BLOOD / Unknown Venipuncture / Unknown 11/03/2023 13:47 EDT 11/03/2023 14:21 EDT Narrative [facility] - 11/03/2023 15:24 EDT The results of this assay can be falsely lowered due to the consumption of Biotin. us Natalia Lang MD CHEMISTRY & BLOOD GAS ORDERABL ES Final Result [facility] [address] [place] [address] documented in this encounter Visit Diagnoses Diagnosis Hyperthyroidism- Primary Thyrotoxicosis without mention of goiter or other cause, without mention of thyrotoxic crisis or storm documented in this encounter Care Teams Lead Java Programmer Relationship Specialty Start Date End Date Livier Valdez NP [address] [place] [address] PCP - General Family Medicine - Primary Care 10/28/22 Mary Montana MD [address] [place] [phone] 03/25/19 documented as of this encounter
--- OUTSIDE RECORDS SUMMARY | 2024-09-15 00:25 | XMS_ITS | Encounter Summary ---
Author Organization [facility] Address [address] [place] [address] Care Team Providers Care Magisterial District Judge Name Role Phone Mary Montana MD Unavailable Livier Valdez NP Primary Care Provider [phone] Encounter Details Date Type Department Care Team (Late st Contact Info) Description 06/17/2023 11:15 EST Phlebotomy Only [facility] - Outpatient Phlebotomy Drawing [address] [place] [address] Lab, [facility] Phlebotomy Rash Social History Tobacco Use Types Packs/Day Years [...] as of this encounter Functional Status * Because of a physical, mental, [...] Procedure Name Priority Date/Time Associated Diagnosis Comments HEPATITIS C AB W REFLEX TO HCV RNA BY PCR Routine 06/17/2023 11:27 EST Rash HEPATITIS B PROFILE Routine 06/17/2023 1 1:27 EST Rash UA SEDIMENT (CULTURE IF POS) Today 06/17/2023 11:23 EST Rash UA WITH REFLEX SEDIMENT (CULTURE IF POS) Routine 06/17/2023 11:23 EST Rash documented in this encounter Results * HEPATITIS C AB W REFLEX TO HCV RNA BY PCR (06/17/2023 11:27 EST) Hep C Antibody Negative Negative 06/17/2023 13:17 [facility] Blood VENOUS BLOOD / Unknown Venipuncture / Unknown 06/17/2023 11:27 EST 06/17/2023 11:54 EST us Gary Virgen MD CHEMISTRY & BLOOD GAS ORDERA BLES Final Result [facility] [address] [place] [address] * HEPATITIS B PROFILE (06/17/2023 11:27 EST) Hep B Surface Ag Negative Negative 06/17/20 13:17 [facility] Hep B Surface Ab, Quantitative 17.1 See Note mIU/mL 06/17/2023 13:17 [facility] Comment: Reference Range for Hep B Surface Ab, Quant: Positive: >= 10.0 mIU/mL Negative: ??< 10.0 mIU/mL Patient is presumed to be immune to infection with Hepatitis B Virus. Hep B Surface Ab, Qualitative Positive See Note 06/17/2023 13:17 [facility] Comment: Reference Range for Hep B Surface Ab, Qual: Unvaccinated: ??Negative Vaccinated: ??Positive Hepatitis B Core Ab, Total Non-reactive Non-reactiv e 06/17/2023 13:17 [facility] Blood VENOUS BLOOD / Unknown Venipuncture / Unknown 06/17/2023 11:27 EST 06/17/2023 11:54 EST Gary Virgen MD CHEMISTRY & BLOOD GAS ORDERA BLES Final Result [facility] [address] [place] [address] * (ABNORMAL) UA SEDIMENT (CULTURE IF POS) (06/17/2023 11:23 EST) Urine RBC Count, Manual 0 - 2 0 - 2, None Seen Cells/HPF 06/17/2023 15:15 [facility] Urine WBC Count 0 - 3 0 - 3, None Seen Cells/HPF 06/17/2023 15:15 [facility] Urine Squamous Count, Manual Few(A) None Seen Cells/HPF 06/17/2023 15:15 [facility] Urine Bacteria Count, Manual None Seen None Seen Bacteria/ HPF 06/17/2023 15:15 [facility] Additional Findings Amorphous material present(A) None Seen 06/17/2023 15:15 [facility] Urine URINE SPECIMEN OBTAINED BY CLEAN CATCH PROCEDURE / Unknown Urine Collect / Unknown 06/17/2023 11:23 EST 06/17/2023 12:01 EST Narrative [facility] - 06/17/2023 15:15 EST Urine Sediment Analysis results are unreliable on urines that are unrefrigerated for >2 hrs or refrigerated >8 hrs. Gary Virgen MD URINALYSIS ORDERABLES Final Result Performing Organization Address [facility]/ZIP Co de Phone Number [facility] [address] [place] [address] * (ABNORMAL) UA WITH REFLEX SEDIMENT (CULTURE IF POS) (06/17/2023 11:23 EST) Color UA Yellow Colorless to Dark Yellow 06/17/2023 15:14 [facility] Clarity UA Cloudy(A) Clear 06/17/2023 15:14 [facility] Glucose UA Negative Negative mg/dL 06/17/2023 15:14 [facility] Bilirubin UA 1+(A) Negative 06/17/2023 15:14 [facility] Ketones UA 2+(A) Negative 06/17/2023 15:14 [facility] Specific [place], Urine >=1.030 1.001 - 1.035 06/17/2023 15:14 [facility] Blood UA Trace(A) Negative 06/17/2023 15:14 [facility] pH, UA 6.0 4.6 - 8.0 06/17/2023 15:14 [facility] Protein UA Negative Negative mg/dL 06/17/2023 15:14 [facility] Urobilinogen UA 0.2 0.2 , 1.0, Normal mg/dL 06/17/2023 15:14 [facility] Nitrite UA Negative Negative 06/17/2023 15:14 [facility] Leukocyte Esterase UA Negative Negative 06/17/2023 15:14 [facility] Urine URINE SPECIMEN OBTAINED BY CLEAN CATCH PROCEDURE / Unknown Urine Collect / Unknown 06/17/2023 11:23 EST 06/17/2023 12:01 EST Gary Virgen MD URINALYSIS ORDERABLES Final Result [facility] [address] [place] [address] documented in this encounter Visit Diagnoses Diagnosis Rash Rash and other nonspecific skin eruption documented in this encounter Care Teams Magisterial District Judge Relationship Specialty Start Date End Date Livier Valdez, LANE ATTENDANT [address] [place] [address] PCP - General Family Medicine - Primary Care 10/28/22 Mary Montana MD [address] [place] [phone] 03/25/19 documented as of this encounter
--- OUTSIDE RECORDS SUMMARY | 2024-09-15 00:26 | XMS_ITS | Encounter Summary ---
Author Organization [facility] Address [address] [place] [address] Care Team Providers Care Inspector [employer] Name Role Phone Mary Montana MD Unavailable Livier Valdez NP Primary Care Provider [phone] Encounter Details Date Type Department Care Team (Latest Contact Info) Description 02/13/2023 8:00 EDT - 02/13/2023 23:59 EDT Hospital Encounter [facility] Xray [address] [place] [address] Discharge Disposition: Home or Self Care Social [...] capsule Take 1 Capsule by mouth daily. documented as of this encounter Discharge Disposition Disposition Code Departure Means Destination Home or Self Care documented in this encounter Plan of Treatment Not on file documented as of this encounter Procedures Procedure Name Priority Date/Time Associated Diagnosis Comments PAIN CLINIC FL LUMBAR INJECTION Routine 02/13/2023 14:33 EDT documented in this encounter Results * PAIN CLINIC FL LUMBAR INJECTION (02/13/2023 14:33 EDT) Narrative 02/13/2023 14:33 EDT This is a non-reportable exam. Denice Johnston MD IMG OTHER IMAGING ORDERABLE S Final Result documented in this encounter Visit Diagnoses Not on filedocumented in this encounter Care Teams Inspector [employer] Relationship Specialty Start Date End Date Livier Valdez NP [address] [place], [place] [id number] PCP - General Family Medicine - Primary Care 10/28/22 Mary Montana MD [address] [place] [phone] 03/25/19 documented as of this encounter
--- OUTSIDE RECORDS SUMMARY | 2024-09-15 00:26 | XMS_ITS | Encounter Summary ---
Author Organization [facility] Address [address] [place] [address] Care Team Providers Care Big Machine Consultant Name Role Phone Mary Montana MD Unavailable Livier Valdez NP Primary Care Provider [phone] Encounter Details Date Type Department Care Team (Late st Contact Info) Description 06/11/2023 15:25 EDT Phlebotomy Only [facility] - Outpatient Phlebotomy Drawing [address] [place] [address] Lab, [facility] [place] [facility] [place] Rash and other nonspecific skin eruption Social History Tobacco Use Types Packs/Day Years [...] Procedure Name Priority Date/Time Associated Diagnosis Comments PTT Routine 06/11/2023 15:47 EDT Rash and other nonspecific skin eruption PROTIME Routine 06/11/2023 15:47 EDT Rash and other nonspecific skin eruption COMPLETE BLOOD COUNT AND DIFFERENTIAL Routine 06/11/2023 15:47 EDT Rash and other nonspecific skin eruption ANTISTREP O TITER, S Routine 06/11/2023 15:47 EDT Rash and other nonspecific skin eruption documented in this encounter Results * COMPLETE BLOOD COUNT AND DIFFERENTIAL (06/11/2023 15:47 EDT) WBC 11.30 4.00 - 12.40 K/cmm 06/11/2023 16:16 [facility] RBC 4.82 3.86 - 5.04 M/cmm 06/11/2023 16:16 [facility] Hemoglobin 13.4 11.6 - 15.2 g/dL 06/11/2023 16:16 [facility] HCT 40.9 34.9 - 44.4 % 06/11/2023 16:16 [facility] MCV 85 81 - 98 fL 06/11/2023 16:16 [facility] MCH 27.8 26.7 - 33.3 pg 06/11/2023 16:16 [facility] MCHC 32.8 32.1 - 35.9 g/dL 06/11/2023 16:16 [facility] RDW-CV 13.0 <14.7 % 06/11/2023 16:16 [facility] RDW-SD 39.9 <50.4 fl 06/11/2023 16:16 [facility] PLT 319 141 - 377 K/cmm 06/11/2023 16:16 [facility] MPV 9.8 9.5 - 12.7 fL 06/11/2023 16:16 [facility] % Neutrophils 65.0 % 06/11/2023 16:16 [facility] % Lymphocytes 26.1 % 06/11/2023 16:16 [facility] % Monocytes 6.5 % 06/11/2023 16:16 [facility] % Eosinophils 1.4 % 06/11/2023 16:16 [facility] % Basophils 0.5 % 06/11/2023 16:16 [facility] % Immature Grans 0.5 % 06/11/20 16:16 [facility] Absolute Neutrophils 7.34 2.20 - 8.85 K/cmm 06/11/2023 16:16 [facility] Absolute Lymphocytes 2.95 1.09 - 3.30 K/cmm 06/11/2023 16:16 [facility] Absolute Monocytes 0.73 0.10 - 0.80 K/cmm 06/11/2023 16:16 [facility] Absolute Eosinophils 0.16 0.03 - 0.61 K/cmm 06/11/2023 16:16 [facility] ABS Basophils 0.06 0.01 - 0.11 K/cmm 06/11/2023 16:16 [facility] Absolute Immature Grans 0.06 0.00 - 0.06 K/cmm 06/11/2023 16:16 [facility] Type of Differential: Auto 06/11/2023 16:16 [facility] Blood VENOUS BLOOD / Unknown Venipuncture / Unknown 06/11/2023 15:47 EDT 06/11/2023 16:13 EDT us Leanna MARTINS PACKAGES & DNA PROBE ORDERABL ES Final Result Performing Organization Address City/[facility]/ZIP Co de Phone Number [facility] [address] [place] [address] * PROTIME (06/11/2023 15:47 EDT) Pathologist [facility] I.N.R. 1.0 0.9 - 1.1 Ratio 06/11/2023 16:24 EDT [facility] Pro Time 11.7 9.7 - 12.8 secs 06/11/2023 16:24 EDT [facility] Blood VENOUS BLOOD / Unknown Venipuncture / Unknown 06/11/2023 15:47 EDT 06/11/2023 16:13 EDT Narrative [facility] - 06/11/2023 16:24 EDT Moderate Intensity Coumadin INR = 2.0-3.0 Adjustments in anticoagulant therapy dose should be based on the INR and NOT on the Protime. us Leanna MARTINS HEMATOLOGY & PF4 ORDERABLES F inal Result Performing Organization Address City/[facility]/ZIP Co de Phone Number [facility] [address] [place] [phone] * PTT (06/11/2023 15:47 EDT) [facility] PTT 29 26 - 37 secs 06/11/2023 16:24 EDT [facility] Blood VENOUS BLOOD / Unknown Venipuncture / Unknown 06/11/2023 15:47 EDT 06/11/2023 16:13 EDT us Leanna MARTINS HEMATOLOGY & PF4 ORDERABLES F inal Result Performing Organization Address City/[facility]/ZIP Co de Phone Number [facility] [address] [place] [address] * (ABNORMAL) ANTISTREP O TITER, S (06/11/2023 15:47 EDT) Antistrep-O Titer, S 601(H) 0 - 530 IU/mL 06/13/2023 8:30 EDT [facility] Comment: Test Performed by: [facility] [address] [id number] Copy Machine Operator: Wan Rodriguez M.D. Ph.D.; CLIA# [id number] Blood VENOUS BLOOD / Unknown Venipuncture / Unknown 06/11/2023 15:47 EDT 06/11/2023 15:58 EDT Leanna MARTINS IMMUNOLOGY AND SEROLOGY ORDER BETTINA Final Result [facility] [address] [place] [address] documented in this encounter Visit Diagnoses Diagnosis Rash and other nonspecific skin eruption documented in this encounter Care Teams Big Machine Consultant Relationship Specialty Start Date End Date Livier Valdez DIRECTOR RETIREMENT [address] [place] [id number] PCP - General Family Medicine - Primary Care 10/28/22 Mary Montana MD [address] [place] [phone] 03/25/19 documented as of this encounter
--- OUTSIDE RECORDS SUMMARY | 2024-09-15 00:26 | XMS_ITS | Encounter Summary ---
Author Organization [facility] Address [address] [place] [address] Care Team Providers Care Mud Analysis Supervisor Name Role Phone Mary Montana MD Unavailable Livier Valdez LEATHER TOGGLER Primary Care Provider [phone] Reason for Referral * RECLAMATION KETTLE TENDER (Routine/Next Available) - Authorization Not Required Specialty Diagnoses / Procedures Referred By Contac t Referred To Contact Diagnoses Unspecified ovarian cyst, left side Procedures US PELVIS TRANSVAGINAL COMPLETE Livier Valdez NP [address] [place] [address] Phone: tel: fax: [facility] [place] Referral ID Status Reason Start Date Expiration Date Visits Requested Visits Authorized [id number] Authorization Not Required 02/03/2023 1 1 Reason for Visit * RECLAMATION KETTLE TENDER (Routine/Next Available) - Authorization Not Required Specialty Diagnoses / Procedures Referred By Contac t Referred To Contact Diagnoses Unspecified ovarian cyst, left side Procedures US PELVIS TRANSVAGINAL COMPLETE Livier Valdez NP [address] [place] [address] Phone: tel: fax: [facility] [place] Referral ID Status Reason Start Date Expiration Date Visits Requested Visits Authorized [id number] Authorization Not Required 02/03/2023 1 1 Encounter Details Date Type Department Care Team (Latest Contact Info) Description 02/27/2023 15:21 EDT - 02/27/2023 23:59 EDT Hospital Encounter [facility] Ultrasound [address] [place] [address] Unspecified ovarian cyst, left side Discharge Disposition: Home or Self Care Social [...] Name Priority Date/Time Associated Diagnosis Comments US PELVIS TRANSVAGINAL COMPLETE Routine 02/27/2023 15:58 EDT Unspecified ovarian cyst, left side documented in this encounter Results * US PELVIS TRANSVAGINAL COMPLETE (02/27/2023 15:58 EDT) Anatomical Region Laterality Modality Pelvis Ultrasound 02/27/2023 15:4 5 EDT Impressions 02/27/2023 17:49 EDT 1. Mildly complex cystic left ovarian lesion which probably represents a complex ovarian cyst. ??Follow-up ultrasound examination is recommended after the next menstrual cycle to assure resolution. 2. Mildly complex small cystic right ovarian lesion which likely represents an ovarian cyst. Follow-up ultrasound examination is recommended after the next menstrual cycle to assure resolution. 3. The previously identified larger right ovarian cystic lesion has resolved in the interval. 4. The IUD appears appropriately positioned within the endometrial cavity. ? THIS DOCUMENT HAS BEEN ELECTRONICALLY SIGNED BY ROQUE HERNÁNDEZ MD FOR ANY QUESTIONS OR CONCERNS REGARDING THIS REPORT PLEASE CALL [facility] AT [phone] Narrative 02/27/2023 17:49 EDT PROCEDURE INFORMATION: Exam: US Pelvis, Transvaginal Exam date and time: 02/27/2023 3:45 PM Age: 37 years old Clinical indication: Unspecified ovarian cyst, left side; Abnormal findings; Abnormal imaging test; Additional info: Left ovarian cyst; 3mo f/u to ensure resolution TECHNIQUE: Imaging protocol: Real-time transvaginal pelvic ultrasound with image documentation. Transvaginal imaging was used for better evaluation of the endometrium, adnexa, and/or cervix. COMPARISON: US PELVIS TRANSVAGINAL 10/31/2022 10:42 AM FINDINGS: Uterus: Uterus measures 6.9 cm x 6.1 cm x 4.7 cm. The endometrium measures 4.1 mm in thickness. An IUD is seen within the endometrial cavity. Right ovary/adnexa: Right ovary measures 2.8 cm x 1.5 cm x 1.6 cm. Right ovarian volume is 3.4 ml. Small right ovarian follicles are noted. Vascular flow is seen within the right ovary. There is a small septated right ovarian cystic lesion measuring 1.2 x 1.1 x 0.6 cm. Left ovary/adnexa: Left ovary measures 4 cm x 3.3 cm x 2 cm. Left ovarian volume is 13.8 mL. Vascular flow is seen within the left ovary. There is a mildly complex cystic left ovarian lesion measuring 3.3 x 1.5 x 2.8 cm. Intraperitoneal space: No free fluid. Procedure Note Roque Hernández MD - 02/27/2023 PROCEDURE INFORMATION: Exam: US Pelvis, Transvaginal Exam date and time: 02/27/2023 3:45 PM Age: 37 years old Clinical indication: Unspecified ovarian cyst, left side; Abnormal findings; Abnormal imaging test; Additional info: Left ovarian cyst; 3mo f/u to ensure resolution TECHNIQUE: Imaging protocol: Real-time transvaginal pelvic ultrasound with image documentation. Transvaginal imaging was used for better evaluation of the endometrium, adnexa, and/or cervix. COMPARISON: US PELVIS TRANSVAGINAL 10/31/2022 10:42 AM FINDINGS: Uterus: Uterus measures 6.9 cm x 6.1 cm x 4.7 cm. The endometrium measures 4.1 mm in thickness. An IUD is seen within the endometrial cavity. Right ovary/adnexa: Right ovary measures 2.8 cm x 1.5 cm x 1.6 cm. Right ovarian volume is 3.4 ml. Small right ovarian follicles are noted. Vascular flow is seen within the right ovary. There is a small septated right ovarian cystic lesion measuring 1.2 x 1.1 x 0.6 cm. Left ovary/adnexa: Left ovary measures 4 cm x 3.3 cm x 2 cm. Left ovarian volume is 13.8 mL. Vascular flow is seen within the left ovary. There is a mildly complex cystic left ovarian lesion measuring 3.3 x 1.5 x 2.8 cm. Intraperitoneal space: No free fluid. IMPRESSION 1. Mildly complex cystic left ovarian lesion which probably represents a complex ovarian cyst. Follow-up ultrasound examination is recommended after the next menstrual cycle to assure resolution. 2. Mildly complex small cystic right ovarian lesion which likely represents an ovarian cyst. Follow-up ultrasound examination is recommended after the next menstrual cycle to assure resolution. 3. The previously identified larger right ovarian cystic lesion has resolved in the interval. 4. The IUD appears appropriately positioned within the endometrial cavity. THIS DOCUMENT HAS BEEN ELECTRONICALLY SIGNED BY ROQUE HERNÁNDEZ MD FOR ANY QUESTIONS OR CONCERNS REGARDING THIS REPORT PLEASE CALL [facility] [phone] us Livier Valdez LEATHER TOGGLER IMG US OB ORDERABLES Final Resul t documented in this encounter Visit Diagnoses Diagnosis Unspecified ovarian cyst, left side documented in this encounter Care Teams Mud Analysis Supervisor Relationship Specialty Start Date End Date Livier Valdez, LEATHER TOGGLER [address] [place] [address] PCP - General Family Medicine - Primary Care 10/28/22 Mary Montana MD [address] [place] [phone] 03/25/19 documented as of this encounter
--- OUTSIDE RECORDS SUMMARY | 2024-09-15 00:26 | XMS_ITS | Encounter Summary ---
Author Organization [facility] Address [address] [place] [address] Care Team Providers Care Cafe Associate Name Role Phone Mary Montana MD Unavailable Livier Valdez RECREATION SUPERINTENDENT Primary Care Provider [phone] Encounter Details Date Type Department Care Team (Late st Contact Info) Description 06/11/2023 Lab Requisition [facility] Pathology & Laboratory Medicine - [facility] [address], [place] [address] Outr Resulting Lab, Provider Social History Tobacco Use Types Packs/Day Years [...] Procedure Name Priority Date/Time Associated Diagnosis Comments MOLECULAR VAGINITIS/VAGINOSIS ASSAY Routine 06/11/2023 16:19 EDT CHLAMYDIA/N. GONORRHOEAE AMPLIFIED NUCLEIC ACID Routine 06/11/2023 16:19 EDT documented in this encounter Results * (ABNORMAL) MOLECULAR VAGINITIS/VAGINOSIS ASSAY (06/11/2023 16:19 EDT) Malika Species Negative Negative 13:50 EDT [facility] Malika glabrata Negative Negative 06/12/2023 13:50 EDT [facility] Trichomonas Vaginalis Negative Negative 06/12/2023 13:50 EDT [facility] BV (Bacterial vaginosis) Positive(A) Negative 06/12/2023 13:50 EDT [facility] Swab VAGINAL STRUCTURE / Unknown 06/11/2023 16:19 EDT 06/11/2023 21:45 EDT us Provider Outr Resulting Lab MICROBIOLOGY - GENER AL ORDERABLES Final Result [facility] [address] [place] [address] * CHLAMYDIA/N. GONORRHOEAE AMPLIFIED RNA (06/11/2023 16:19 EDT) Neisseria gonorrhoeae Result Negative Negative 06/12/2023 12:32 EDT [facility] Chlamydia trachomatis Result Negative Negative 06/12/2023 12:32 EDT [facility] Swab VAGINAL STRUCTURE / Unknown 06/11/2023 16:19 EDT 06/11/2023 21:45 EDT us Provider Outr Resulting Lab MICROBIOLOGY - GENER AL ORDERABLES Final Result Performing Organization Address City/State/[facility] Co de Phone Number [facility] [address] [place] [address] documented in this encounter Visit Diagnoses Not on filedocumented in this encounter Care Teams Cafe Associate Relationship Specialty Start Date End Date Livier Valdez, RECREATION SUPERINTENDENT [address] [place] [address] PCP - General Family Medicine - Primary Care 10/28/22 Mary Montana MD [address] [place] [phone] 03/25/19 documented as of this encounter
--- OUTSIDE RECORDS SUMMARY | 2024-09-15 00:26 | XMS_ITS | Encounter Summary ---
Author Organization [facility] Address [address] [place] [address] Care Team Providers Care Explosive Man Name Role Phone Mary Montana MD Unavailable Livier Valdez CARDIOPULMONARY TECHNICIAN Primary Care Provider [phone] Encounter Details Date Type Department Care Team (Latest Contact Info) Description 06/16/2023 Travel Social History Tobacco Use Types Packs/Day [...] on filedocumented in this encounter Care Teams Explosive Man Relationship Specialty Start Date End Date Livier Valdez NP [address] [place] [address] PCP - General Family Medicine - Primary Care 10/28/22 Mary Montana MD [address] [place] [phone] 03/25/19 documented as of this encounter
--- OUTSIDE RECORDS SUMMARY | 2024-09-15 00:26 | XMS_ITS | Encounter Summary ---
Author Organization [facility] Address [address] [place] [address] Care Team Providers Care Library Consultant Name Role Phone Mary Montana MD Unavailable Livier Valdez NP Primary Care Provider Reason for Visit * Reason Comments Follow-up Vasculitis Encounter Details Date Type Department Care Team (Late st Contact Info) Description 06/17/2023 8:30 EST Office Visit [facility] 5th Floor [facility] [address], [place] [phone] Leanna Guerra PA-C [address] [phone] Nanda Dumont MD 101 [facility] [address] [place] [address] Hiram Owusu MD [address] [phone] Gary Virgen MD [address] [place] [address] [place] [phone] Rash (Primary Dx) Social History Tobacco Use Types [...] encounter Patient Instructions * Patient Instructions* Matt Drake MD - 06/17/2023 8:30 EST WOUND CARE INSTRUCTIONS FOR SHAVE/PUNCH SKIN BIOPSY The DRESSING/BAND-AID should remain in place for 24 hours. You may shower or bathe after 24 hours; remove the bandage and replace it after the shower. Continue to keep the biopsy site covered with Vaseline and a Band-Aid/bandage for 1 week after the biopsy and change daily. WOUND CARE: ?? Wash hands with soap and water before changing the dressing. ?? Clean the wound daily with mild soap and water. You may gently loosen any crusts with a cotton swab. The wound may be slightly tender and may bleed a small amount. A small amount of discharge is normal. ?? Apply a thin layer of sterile petroleum jelly over the wound. Cover the wound with a Telfa (non-stick) dressing or bandage. It is important to keep the wound covered. ?? Change the dressing daily and when it [...] discomfort. Tylenol, taken as directed by the elementary school science teacher, will help relieve pain. If Tylenol does [...] CONTACT THE OFFICE or IF YOU EXPERIENCE: ?? increased redness ?? warmth to touch ?? increased pain ?? drainage with a foul odor ?? rapid swelling of the wound ?? fever or chills To our patients in dermatology: The recently passed Cures Act requires that all lab and biopsy results are available to you online when they are processed (the same time they are released to your provider). If you choose to look at your results in [employer] prior to our office contacting you, that is your right and choice. Our office policy is to have your provider or the provider???s mail handler assistant contact you with your results and any treatment plan, in a timely manner. In some cases, biopsy and/or lab results can be upsetting, and we prefer to give you the results ourselves once we have reviewed them and have formulated a plan. If you opt to read your results online before we are able to contact you, please do not call the office or send a [employer] message asking to discuss them. Providers are seeing patients during the day and cannot answer calls during clinic time or off hours/weekends. Unless it is an emergency, the international marketing specialist provider will not review biopsy and/ or lab results. Thank you for entrusting us with your care. [facility]- Dermatology documented in this encounter Ordered Prescriptions Prescription Sig Dispense Quantity Refills Last Filled Start Date End Date colchicine (COLCRYS) 0.6 mg tabletIndications: Rash Take 1 Tablet by mouth 2 times daily for 28 days. 56 Tablet 06/17/2023 07/15/2023 documented in this encounter Progress Notes * Matt Drake MD - 06/17/2023 0830 EST Images from the original note were not included. Dermatology Outpatient Visit Note DERMATOLOGIC HISTORY: No specialty comments available. Last Dermatology Clinic Visit: [facility] CHIEF COMPLAINT: Jonathon Hall is a 38 y.o. female who presents for Follow-up (Vasculitis) SUBJECTIVE: Pt with painful red skin lesions over the legs as well as on her abdomen, worsening over the past 2weeks. She has had associated worsening diffuse joint pains that are worst in her ankles, knees andmake it extremely difficult to walk. She endorses some chills but has not had a fever. She had an episode of vomiting when this first began and also developed a sore throat 4 days ago. She states mukund has been ill with URI and GI symptoms recently. She has been started on multiple different antibiotics recently but all were initiated after the rash was already present. Only other new medication is methylphenidate for ADHD which she started about 2 months prior to onset of the rash. She has no known personal or family history of autoimmune disease. She denies Hx of IVDU or sexual contact with partners known to have HBV or HCV, but states she has never been tested for viral hepatitis. OBJECTIVE: Focused cutaneous examination was performed. Examination was notable for the following findings: -palpable purpura affecting the legs > abdomen > forearms > chest -Vesiculobullous changes, marked edema, and severe skin tenderness on the lower legs ASSESSMENT & PLAN: Rash: Favor cutaneous small vessel vasculitis; DDx includes IgA vasculitis, ANCA-associated vasculitides -Uncertain etiology, but recent exposure to viral illnesses and Hx of sore throat are suspicious for viral etiology. Discussed with pt that in about half of cases of vasculitis it is not possible to determine a definitive cause -WBC count is elevated at 18.4 with neutrophilic/moncytic predominance. Pt has not been treated with systemic steroids, which supports infectious etiology though could be secondary to the underlying inflammatory process. For this reason we do not favor starting prednisone today. -Renal function WNL -Will order further work up: - HEPATITIS B PROFILE; Future - HEPATITIS C AB W REFLEX TO HCV RNA BY PCR; Future - URINE CHEMICAL (DIP) & SEDIMENT (MICRO) WITH REFLEX TO CULTURE; Future -Start: colchicine (COLCRYS) 0.6 mg tablet; Take 1 Tablet by mouth 2 times daily for 28 days. Dispense: 56 Tablet; Refill: 0 - Given the diagnostic uncertainty, biopsy is recommended (please see procedure note below) - Patient was advised of the risks of biopsy, including pain, infection, bleeding, and inevitability of scar formation. - Patient was made aware she will be called with biopsy results when available, at which time further treatment recommendations will be made based on the results attained. - The patient understood the above and was in agreement with this plan. - Wound care instructions provided - Sending specimens for H&E and DIF PROCEDURE: PUNCH BIOPSY PATIENT : Jonathon Hall : MRN: [id number] SURGEON: MATT DRAKE MD The indication, risks, benefits and alternatives to this procedure were discussed in detail in withthe patient and all questions were answered. Informed consent was obtained in writing. PROCEDURE NOTE: Specimen A Procedure: Punch Biopsy Site: left and lower leg Anesthesia: 1% lidocaine with epinephrine 1:100,000 local infiltration Prep: Alcohol Procedure performed by: The resident performed the procedure. Specimen B Procedure: Punch Biopsy Site: right forearm Anesthesia: 1% lidocaine with epinephrine 1:100,000 local infiltration Prep: Alcohol Procedure performed by: The resident performed the procedure. The lesions wereprepped and anesthetized with local anesthesia. The specimens were removed with a 4.0 mm punch trephine. Hemostasis was achieved with pressure. The wounds wereclosed with 4.0 Prolene (polypropylene) suture. A sterile dressing was applied over petrolatum ointment. Verbal and written wound care instructions were given. The specimens were submitted to pathology for histological evaluation. FOLLOW UP: Return in about 4 weeks (around 07/15/2023) for vasculitis. Matt Drake MD PGY-3 Dermatology Resident 06/17/2023 11:04 Attestation Statement: I saw and examined the patient with the resident/fellow. I agree with the findings and plan of care documented in the resident's/fellow's note. I was present for the entire procedure. Gary Virgen MD documented in this encounter Miscellaneous Notes * Result Encounter Note - Matt Drake MD - 06/17/2023 0830 EST Biopsy and lab results and next steps were discussed with pt at her appt today with Dr. Eldridge documented in this encounter Plan of Treatment Not on file documented as of this encounter Procedures Procedure Name Priority Date/Time Associated Diagnosis Comments DERMATOLOGY SURGICAL PATHOLOGY Routine 06/17/2023 9:03 EST Rash documented in this encounter Results * HEPATITIS C AB W REFLEX TO HCV RNA BY PCR (06/17/2023 11:27 EST) Hep C Antibody Negative Negative 06/17/2023 13:17 EST [facility] Blood VENOUS BLOOD / Unknown Venipuncture / Unknown 06/17/2023 11:27 EST 06/17/2023 11:54 EST Gary Virgen MD CHEMISTRY & BLOOD GAS ORDERA BLES Final Result Performing Organization Address City/[facility] [[email or web address]] Co de Phone Number [facility] [address] [place] [address] * HEPATITIS B PROFILE (06/17/2023 11:27 EST) Hep B Surface Ag Negative Negative 06/17/20 13:17 [facility] Hep B Surface Ab, Quantitative 17.1 See Note mIU/mL 06/17/2023 13:17 [facility] Comment: Reference Range for Hep B Surface Ab, Quant: Positive: >= 10.0 mIU/mL Negative: ??< 10.0 mIU/mL Patient is presumed to be immune to infection with Hepatitis B Virus. Hep B Surface Ab, Qualitative Positive See Note 06/17/2023 13:17 [facility] Comment: Reference Range for Hep B Surface Ab, Qual: Unvaccinated: ??Negative Vaccinated: ??Positive Hepatitis B Core Ab, Total Non-reactive Non-reactiv e 06/17/2023 13:17 [facility] Blood VENOUS BLOOD / Unknown Venipuncture / Unknown 06/17/2023 11:27 EST 06/17/2023 11:54 EST Gary Virgen MD CHEMISTRY & BLOOD GAS ORDERA BLES Final Result Performing Organization Address [facility] [[email or web address]] Co de Phone Number [facility] [address] [place] [address] * DERMATOLOGY SURGICAL PATHOLOGY (06/17/2023 9:03 EST) Note to Patient The following pathology results have been interpreted by your pathologist and may be available to you before your health provider has had the opportunity to review them. Please allow time for your provider to receive these results and explore management options, if applicable. 06/20/2023 14:45 EST [facility] Final Diagnosis A. SKIN OF LOWER LEG, LEFT, PUNCH BIOPSY: - Leukocytoclastic vasculitis, with epidermal ischemic necrosis and pustular formation. (see microscopic description and comment) B. SKIN OF FOREARM, RIGHT, PUNCH BIOPSY FOR DIRECT IMMUNOFLUORESCENCE: - Negative immunofluorescence. (see ancillary studies) 06/20/2023 14:45 [facility] Diagnosis Comment Vulnerability Researcher slides of this case were reviewed at the intradepartmental consultation conference. 06/20/2023 14:45 [facility] Attestation By the signature below, the attending physician certifies that they have 1) personally conducted a gross and/or microscopic examination of the described specimen(s), and/or personally interpreted the results of laboratory testing of the described specimen(s), and 2) personally rendered or confirmed the above diagnosis. 06/20/2023 14:45 [facility] at 1445 Microscopic Description A. Sections show fibrin, neutrophils, and neutrophil fragments near vessels. There are also extravasated erythrocytes and a mixed cellular infiltrate. GMS and Gram stains are negative for microorganisms in the available sections. Multiple deeper levels have been examined. B. See ancillary studies. 06/20/2023 14:45 [facility] Ancillary Studies INTERPRETATION: Negative immunofluorescence. DESCRIPTION The specimen consists of a skin biopsy with intact dermis and epidermis. Frozen sections are exposed to fluorescein-valeriy d antibodies directed against IgG, IgM, IgA, C3 and polyvalent immunoglobulins (IgA, IgG, IgM, [place] and Lambda). No specific fluorescence is seen in any location. NOTE: One or [...] performance characteristics have been determined by [facility] and/or by the referring laboratory. The positive and negative controls worked appropriately. If immunoperoxidase staining has been performed on alcohol fixed cytology specimens, which has not been fully validated, the assays should be interpreted with caution and correlated with clinical data. This laboratory is certified under the Clinical Laboratory Improvement Amendments of 1988 (CLIA-88) as qualified to perform high complexity clinical laboratory testing. 06/20/2023 14:45 [facility] Clinical History A, B. Severely painful palpable purpura with arthritis; clinical diagnosis code: R21 06/20/2023 14:45 [facility] Gross Description A. Received in formalin labelled with proper patient identification (initials S, N) and left lower leg (H&E) is a punch biopsy of red-pink erythematous skin (0.4 cm in diameter and 0.5 cm in depth). The tissue is bisected and entirely submitted in A1. B. Received in [employer] fixative labelled with proper patient identification (initials S, N) and right forearm (DIF) is a punch biopsy adair-pink skin (0.4 cm in diameter and 0.5 cm in depth). The specimen is submitted intact to Histology for Immunofluorescence. LAKSHMI HOLLAND([facility]) 06/17/2023 13:22 06/20/2023 14:45 [facility] Performing Lab [facility] 06/20/2023 14:45 [facility] Scanned Images 06/20/2023 14:45 [facility] Tissue SPECIMEN FROM SKIN / Unknown Collection, Other / Unknown 06/17/2023 9:03 EST 06/17/2023 11:22 EST Tissue specimen (specimen) SPECIMEN FROM SKIN / Unknown 06/17/2023 9:03 EST 06/17/2023 11:22 EST Gary Virgen MD PATHOLOGY ORDERABLES Final R esult [facility] [address] [place] [address] documented in this encounter Visit Diagnoses Diagnosis Rash- Primary Rash and other nonspecific skin eruption documented in this encounter Orders Lab Orders Without Results Count Last Ordered D ate First Ordered Date URINE CHEMICAL (DIP) & SEDIM ENT (MICRO) WITH REFLEX TO CULTURE 1 06/17/2023 documented in this encounter Care Teams Library Consultant Relationship Specialty Start Date End Date Livier Valdez NP [address] [place] [phone] PCP - General Family Medicine - Primary Care 10/28/22 Mary Montana MD [address] [place] [phone] 03/25/19 documented as of this encounter
--- OUTSIDE RECORDS SUMMARY | 2024-09-15 00:26 | XMS_ITS | Encounter Summary ---
Author Organization [facility] Address [address] [place] [address] Care Team Providers Care Construction Trades Contractor Name Role Phone Mary Montana MD Unavailable Livier Valdez LABORER PRESTRESSED CONCRETE Primary Care Provider [phone] Encounter Details Date Type Department Care Team (Late st Contact Info) Description 06/11/2023 Community [facility] [address] [place] [address] Leanna Hi, PA [address] [place], [place] Rash and other nonspecific skin eruption (Primary Dx) Social History Tobacco Use Types [...] documented as of this encounter Results * COMPLETE BLOOD COUNT AND DIFFERENTIAL (06/11/2023 15:47 EDT) WBC 11.30 4.00 - 12.40 K/cmm 06/11/2023 16:16 [facility] RBC 4.82 3.86 - 5.04 M/cmm 06/11/2023 16:16 [facility] Hemoglobin 13.4 11.6 - 15.2 g/dL 06/11/2023 16:16 [facility] HCT 40.9 34.9 - 44.4 % 06/11/2023 16:16 [facility] MCV 85 81 - 98 fL 06/11/2023 16:16 [facility] MCH 27.8 26.7 - 33.3 pg 06/11/2023 16:16 [facility] MCHC 32.8 32.1 - 35.9 g/dL 06/11/2023 16:16 [facility] RDW-CV 13.0 <14.7 % 06/11/2023 16:16 [facility] RDW-SD 39.9 <50.4 fl 06/11/2023 16:16 [facility] PLT 319 141 - 377 K/cmm 06/11/2023 16:16 [facility] MPV 9.8 9.5 - 12.7 fL 06/11/2023 16:16 [facility] % Neutrophils 65.0 % 06/11/2023 16:16 EDT [facility] % Lymphocytes 26.1 % 06/11/2023 16:16 [facility] % Monocytes 6.5 % 06/11/2023 16:16 [facility] % Eosinophils 1.4 % 06/11/2023 16:16 [facility] % Basophils 0.5 % 06/11/2023 16:16 [facility] % Immature Grans 0.5 % 06/11/20 16:16 [facility] Absolute Neutrophils 7.34 2.20 - 8.85 K/cmm 06/11/2023 16:16 [facility] Absolute Lymphocytes 2.95 1.09 - 3.30 K/cmm 06/11/2023 16:16 [facility] Absolute Monocytes 0.73 0.10 - 0.80 K/cmm 06/11/2023 16:16 [facility] Absolute Eosinophils 0.16 0.03 - 0.61 K/cmm 06/11/2023 16:16 [facility] ABS Basophils 0.06 0.01 - 0.11 K/cmm 06/11/2023 16:16 [facility] Absolute Immature Grans 0.06 0.00 - 0.06 K/cmm 06/11/2023 16:16 [facility] Type of Differential: Auto 06/11/2023 16:16 [facility] Blood VENOUS BLOOD / Unknown Venipuncture / Unknown 06/11/2023 15:47 EDT 06/11/2023 16:13 EDT us Leanna MARTINS PACKAGES & DNA PROBE ORDERABL ES Final Result [facility] [address] [place] [address] * PROTIME (06/11/2023 15:47 EDT) I.N.R. 1.0 0.9 - 1.1 Ratio 06/11/2023 16:24 EDT [facility] Pro Time 11.7 9.7 - 12.8 secs 06/11/2023 16:24 EDT [facility] Blood VENOUS BLOOD / Unknown Venipuncture / Unknown 06/11/2023 15:47 EDT 06/11/2023 16:13 EDT Narrative [facility] - 06/11/2023 16:24 EDT Moderate Intensity Coumadin INR = 2.0-3.0 Adjustments in anticoagulant therapy dose should be based on the INR and NOT on the Protime. Leanna MARTINS HEMATOLOGY & PF4 ORDERABLES F inal Result Performing Organization Address City/[facility]/ZIP Co de Phone Number [facility] [address] [place] [address] * PTT (06/11/2023 15:47 EDT) PTT 29 26 - 37 secs 06/11/2023 16:24 EDT [facility] Blood VENOUS BLOOD / Unknown Venipuncture / Unknown 06/11/2023 15:47 EDT 06/11/2023 16:13 EDT Leanna MARTINS HEMATOLOGY & PF4 ORDERABLES F inal Result Performing Organization Address City/[facility] Co de Phone Number [facility] [address] [place] [address] * (ABNORMAL) ANTISTREP O TITER, S (06/11/2023 15:47 EDT) Antistrep-O Titer, S 601(H) 0 - 530 IU/mL 06/13/2023 8:[address] [facility] Comment: Test Performed by: [facility] - [address] [address] Retail Analyst: Wan Rodriguez M.D. Ph.D.; CLIA# [id number] Blood VENOUS BLOOD / Unknown Venipuncture / Unknown 06/11/2023 15:47 EDT 06/11/2023 15:58 EDT us Leanna MARTINS IMMUNOLOGY AND SEROLOGY ORDER BETTINA Final Result [facility] [address] [place] [address] documented in this encounter Visit Diagnoses Diagnosis Rash and other nonspecific skin eruption- Primary documented in this encounter Care Teams Construction Trades Contractor Relationship Specialty Start Date End Date Livier Valdez NP [address] [place] [address] PCP - General Family Medicine - Primary Care 10/28/22 Mary Montana MD [address] [place] [phone] 03/25/19 documented as of this encounter
--- OUTSIDE RECORDS SUMMARY | 2024-09-15 00:26 | XMS_ITS | Encounter Summary ---
Author Organization [facility] Address [address] [place] [address] Care Team Providers Care Lead Php Developer Name Role Phone Mary Montana MD Unavailable Livier Valdez NP Primary Care Provider [phone] Reason for Visit * Reason Onset Date Comments Appointment Related 01/10/2023 Encounter Details Date Type Department Care Team (Late st Contact Info) Description 01/10/2023 Telephone [facility] [address] [place] [address] Tanner Chappell MD [address] [place] [address] [address] [place] [phone] Appointment Related Social History Tobacco Use Types Packs/Day Years [...] 12:19 EST Sexual Orientation Not on file COVID-19 Exposure Response Date Recorded In the last 10 days, have yo u been in contact with someone who was confirmed or suspected to have Coronavirus/COVID-19? No / Unsure 12/27/2022 11:16 EDT documented as of this encounter Functional Status [...] encounter Miscellaneous Notes * Telephone Encounter - Wanda Moore - 01/10/2023 1715 EDT Pt scheduled 02/13 @ Deanna * Telephone Encounter - Wanda Moore - 01/10/2023 1253 EDT Pt called to schedule appointment for Cate CABRAL, upon further discussion, pt Asked to be referred to Deanna, since we were scheduling out into March. As she is not established, I gave her the # to call to schedule. I advised that she call me back, if I could be of any further assistance. documented in this encounter Plan of Treatment Not on file documented as of this encounter Visit Diagnoses Not on filedocumented in this encounter Additional Health Concerns Infection Onset Date Last Indicated Resolved Time R/O COVID-19 04/16/2023 04/16/2023 04/16/2023 23:3 7 EDT COVID-19 04/16/2023 04/16/2023 05/06/2023 22:1 5 EDT documented as of this encounter Care Teams Lead Php Developer Relationship Specialty Start Date End Date Livier Valdez, VISUAL MERCHANDISING ASSISTANT [address] [place] [address] PCP - General Family Medicine - Primary Care 10/28/22 Mary Montana MD [address] [place] [phone] 03/25/19 documented as of this encounter
--- OUTSIDE RECORDS SUMMARY | 2024-09-15 00:26 | XMS_ITS | Encounter Summary ---
Author Organization [facility] Address [address] [place] [address] Care Team Providers Care Well Flow Operator Name Role Phone Mary Montana MD Unavailable Livier Valdez NP Primary Care Provider [phone] Encounter Details Date Type Department Care Team (Latest Contact Info) Description 05/19/2023 15:45 EDT - 05/19/2023 23:59 EDT Hospital Encounter [facility] Xray [address] [place] [address] Discharge Disposition: Home or Self Care Social [...] Priority Date/Time Associated Diagnosis Comments XR HIP LEFT 2-3 VIEWS, OPTIONAL PELVIS Routine 05/19/2023 15:57 EDT Left hip pain documented in this encounter Results * XR HIP LEFT 2-3 VIEWS, OPTIONAL PELVIS (05/19/2023 15:57 EDT) Anatomical Region Laterality Modality Lower Extremities Left Computed Radio graphy 05/19/2023 15:3 6 EDT Impressions 05/20/2023 12:16 EDT 1. ?? Unremarkable hips. 2. ?? Two tubal ligation clips again project over the right hemipelvis. The left tubal ligation clip was also shown to be displaced into the right hemipelvis on the prior CT. Suggest METAL DRESSER follow-up. THIS DOCUMENT HAS BEEN ELECTRONICALLY SIGNED BY ANGELICA YAÑEZ MD FOR ANY QUESTIONS OR CONCERNS REGARDING THIS REPORT PLEASE CALL [facility] AT [phone] Narrative 05/20/2023 12:16 EDT PROCEDURE INFORMATION: Exam: XR Left Hip Exam date and time: 05/19/2023 3:36 PM Age: 38 years old Clinical indication: Pain in left hip; Hip pain; Additional info: Left hip pain TECHNIQUE: Imaging protocol: Radiologic exam of the left hip. Views: 2 or 3 views hip with pelvis when performed. COMPARISON: CT ABDOMEN PELVIS W CONTRAST 09/26/2022 2:08 PM FINDINGS: Tubes, catheters and devices: Two tubal ligation clips again project over the right hemipelvis. The left tubal ligation clip was also shown to be displaced into the right hemipelvis on the prior CT. Bones/joints: Unremarkable. No acute fracture. Soft tissues: Unremarkable. Organs: An IUD is present. Procedure Note Angelica Yañez MD - 05/20/2023 PROCEDURE INFORMATION: Exam: XR Left Hip Exam date and time: 05/19/2023 3:36 PM Age: 38 years old Clinical indication: Pain in left hip; Hip pain; Additional info: Left hip pain TECHNIQUE: Imaging protocol: Radiologic exam of the left hip. Views: 2 or 3 views hip with pelvis when performed. COMPARISON: CT ABDOMEN PELVIS W CONTRAST 09/26/2022 2:08 PM FINDINGS: Tubes, catheters and devices: Two tubal ligation clips again project over the right hemipelvis. The left tubal ligation clip was also shown to be displaced into the right hemipelvis on the prior CT. Bones/joints: Unremarkable. No acute fracture. Soft tissues: Unremarkable. Organs: An IUD is present. IMPRESSION 1. Unremarkable hips. 2. Two tubal ligation clips again project over the right hemipelvis. The left tubal ligation clip was also shown to be displaced into the right hemipelvis on the prior CT. Suggest METAL DRESSER follow-up. THIS DOCUMENT HAS BEEN ELECTRONICALLY SIGNED BY ANGELICA YAÑEZ MD FOR ANY QUESTIONS OR CONCERNS REGARDING THIS REPORT PLEASE CALL [facility] [phone] Lynda Wolfe PA-C IMG DIAGNOSTIC IMAGING ORDER BETTINA Final Result documented in this encounter Visit Diagnoses Not on filedocumented in this encounter Care Teams Well Flow Operator Relationship Specialty Start Date End Date Livier Valdez NP [address], [place] [id number] PCP - General Family Medicine - Primary Care 10/28/22 Mary Montana MD [address] [place] [id number] 03/25/19 documented as of this encounter
--- OUTSIDE RECORDS SUMMARY | 2024-09-15 00:26 | XMS_ITS | Encounter Summary ---
Author Organization [facility] Address [address] [place] [address] Care Team Providers Care Business Integration Manager Name Role Phone Mary Montana MD Unavailable Livier Valdez VEGETABLE CUTTER Primary Care Provider [phone] Encounter Details Date Type Department Care Team (Late st Contact Info) Description 06/06/2023 Lab Requisition [facility] - [facility] [address], [place] [id number] Outr Resulting Lab, Provider Social History Tobacco [...] on filedocumented in this encounter Care Teams Business Integration Manager Relationship Specialty Start Date End Date Livier Valdez NP [address] [place] [address] PCP - General Family Medicine - Primary Care 10/28/22 Mary Montana MD [address] [place] [id number] 03/25/19 documented as of this encounter
--- OUTSIDE RECORDS SUMMARY | 2024-09-15 00:26 | XMS_ITS | Encounter Summary ---
Author Organization [facility] Address [address] [place] [address] Care Team Providers Care Software Tools Build Engineer Name Role Phone Mary Montana MD Unavailable Jairo Valdez SENIOR TERADATA DEVELOPER Primary Care Provider [phone] Reason for Visit * Reason Comments Rash Bilateral low extrem ity rash for the last 2 weeks. Red, raised, painful rash starting in feet and spreading up knees Encounter Details Date Type Department Care Team (Late st Contact Info) Description 06/16/2023 20:22 EST - 06/17/2023 8:23 EST Emergency [facility] Emergency Department - [address] [id number] Leanna Guerra PA-C [address] [place] [phone] Nanda Dumont MD [address] [place] [address] [place] [id number] Hiram Owusu MD [address] [phone] Rash (Primary Dx) Discharge Disposition: Home or Self [...] Sign Reading Time Taken Comments Blood Pressure 114/64 06/17/2023 0754 EST Pulse 90 06/17/2023 0754 EST Temperature 37 ??C (98.6 ??F) 06/17/2023 0754 EST Respiratory Rate 18 06/17/2023 0754 EST Oxygen Saturation 99% 06/17/2023 0754 EST Inhaled Oxygen Concentration - - Weight 90.7 kg (200 lb) 06/16/2023 1730 EST Height 165.1 cm (5' 5) 06/16/2023 1730 EST Body Mass Index 33.28 06/16/2023 1730 EST documented in this encounter Functional Status * Because of [...] 14:18 EDT documented in this encounter Discharge Summaries * Rakesh Haque MD - 06/17/2023 0748 EST ED Observation Discharge Note Diagnoses: Final diagnoses: Rash Procedures: No orders of the defined types were placed in this encounter. Imaging Studies: None Observation Course/Summary of Care Provided: 58-year-old female presenting with 2 weeks of worsening purpuric rash over her trunk and particularly over bilateral lower extremities. Found to have normal platelet count. White blood cell count elevated at 18.38. Dermatology was consulted for evaluation. They advised that they will see the patient in clinic at 830 this morning. Patient discharged Condition upon Discharge: Stable Medication List ASK your doctor about these medications lactobacillus rhamnosus (GG) 10 billion cell capsule Commonly known as: CULTURELLE methylphenidate HCl 5 mg tablet Commonly known as: RITALIN;METHYLIN Discharge Instructions: Discharge Instructions Please go directly to the dermatology clinic on [address] in this building. Your appointment is at 830 this morning Follow-up Provider: JAIRO VALDEZ No orders of the defined types were placed in this encounter. Discharge services time spent: I personally spent 5 minutes providing services to this patient on the date of discharge Disposition: Discharged Cosigned by Hiram Owusu IV, MD at 06/17/2023 8:00 EST Associated attestation - Hiram Owusu MD - 06/17/2023 0800 EST ATTENDING ATTESTATION Hiram Romo IV, performed a history and exam of this patient and discussed the case withthe resident. I have reviewed and edited this note, and the documentation is consistent with my findings, assessment and plan. I fully participated in the medical decision making. documented in this encounter Discharge Instructions * Discharge Instructions* Rakesh Haque MD - 06/17/2023 7:21 EST Please [facility] directly [facility]. Your appointment is at 830 this morning documented in this encounter Medications at Time of Discharge lactobacillus rhamnosus, GG, (CULTURELLE) 10 billion cell capsule Take 1 Capsule by mouth daily. methylphenidate HCl (RITALIN;METHYLIN ) 5 mg tablet Take 2 Tablets by mouth daily. Patient reports 20mg documented as of this encounter Discharge Disposition Disposition Code Departure Means Destination Comment s Home or Self [facility] documented in this encounter ED Notes * Ras Au RN - 06/17/2023 0822 EST AVS and d/c paperwork provided and reviewed. Pt aware to follow up with PCP, specialty referral or return to the ED for return or worsening symptoms. PIV removed and dressing applied. Pt wheeled to 5 Dermatology for 829 appt. * Lindsay Donahue RN - 06/17/2023 0008 EST Patient rang call holcomb and requested to use bathroom, stated she didn't think she could walk due topain in legs. Patient assisted to bathroom in by RN. Able to self transfer to . * Leanna Guerra PA-C - 06/16/2023 2158 EST Images from the original note were not included. Emergency Department Visit Medical Decision Making Relevant Data as of 06/18/233 Mon Jun 16, 2023 0533 I, Nanda Dumont MD, reviewed this case with the Advanced Practice Provider (ARUN) and have reviewed the ARUN's note. I evaluated this patient [id number] and provided a substantive portion of the patient's care. My personal evaluation included a face to face history and physical exam, review of nursing notes, review of vital signs, review of relevant records, and review of diagnostic data. Based on these elements I formulated, and/or participated substantively in the medical decision making, including assessing the level of risk of the patient's complaints and condition, establishing a diagnosis and/or selecting management options. My personal documentation is as follows: ?? 38-year-old female presenting with 2 weeks of worsening purpuric raised rash over her trunk and particular over the bilateral lower extremities. On exam she is uncomfortable, the rash is stabbing andburning in character. Vital signs are stable. No clustering blisters, no palm or sole involvement, no mucous membrane involvement but rash itself is uncomfortable though the soft tissue is soft without pain out of proportion to exam. Differential worked up and considered includes vasculitis, considered thrombocytopenia, no vesicles or obvious infectious appearance. No palm, sole or mucous membrane involvement. Dermatology consulted. Patient lives quite far away in [place], [place] and is sufficiently uncomfortable that I think she would benefit from observation, pain control, ongoing monitoringand dermatology evaluation in the morning. Final diagnoses: Rash [AW] FriJun 17, 2023 0123 [Painful bilateral purpuric rash - no fever, platelets ok - lives [facility] - treating pain [WF] Relevant Data User Index [AW] Nanda Dumont MD [WF] Hiram Owusu IV, MD Laboratory data was reviewed. Medical Decision Making Jonathon Hall is a 38 y.o. female with past medical history significant for anxiety, ADHD, bacterial vaginosis, hyperlipidemia, status post augmentation mammoplasty, who presents to the ED for evaluation of a rash. Patient is tachycardic, very uncomfortable appearing, resting on the stretcher. She has a painful palpable purpura to her lower extremities bilaterally. Patient placed in ED observation status for symptomatic control and ultimate dermatology evaluation Discussed with dermatology who recommended checking her renal function, as well as a follow-up urgent visit in the next several days. Labs notable for leukocytosis, worsening from several days prior, normal CMP, normal INR. Patient continues to have severe pain, had no improvement with oxycodone. Was given a very small dose of morphine (per her request - notes she is very sensitive to medications) although had no improvement withthis. Plan to treat with 0.5 mg of hydromorphone. Rash: acute illness or injury Amount and/or Complexity of Data Reviewed Labs: ordered. Risk Prescription drug management. Final diagnoses: Rash Disposition: Discharged Chief complaint: Chief Complaint Patient presents with ??? Rash Bilateral low extremity rash for the last 2 weeks. Red, raised, painful rash starting in feet and spreading up knees HPI Jonathon Hall is a 38 y.o. female with past medical history significant for anxiety, ADHD, bacterial vaginosis, hyperlipidemia, status post augmentation mammoplasty, who presents to the ED for evaluation of a rash. Patient states that on 06/04/2023 she noted small red dots to her lower extremities bilaterally, that appear to be spreading towards her thighs. On 06/06/2023, she started doxycycline for a pelvic infection. She was seen in her primary care provider's office several days later, noted that her rash had worsened, and her antibiotic was changed from doxycycline to Augmentin. Laterthat night she developed nausea and vomiting with hematemesis, was seen at [facility] where she was noted to have a mild leukocytosis, normal H&H, normal platelet count. CT abdomen pelvis demonstrated bilateral ovarian cysts, was otherwise unremarkable. 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 Patient has had gradual worsening rash to her lower extremities, has developed significant pain to lower extremities particularly in the ankles, and now is having difficulty walking secondary to pain. She states the pain is burning, worse at night, touching his feet is painful. Her entire body feels achy, without measured fevers. In addition she has had several days of a new sore throat. Her vaginal swab from last week ended up being positive for bacterial vaginosis, she was started on topical metronidazole. She followed up in her primary care provider office again today, and group A strep was ordered and she was directed to the ED for further evaluation. No history of IV drug use, she is no longer a smoker. She works from home. Patient is sexually active with male partners, has had a few new male partners over the last several months. Pain is currently 8/10 in severity History was provided by: patient Records reviewed include: PCP record note 06/16/2023 Patient's pertinent PMH, FH, SH were reviewed and edited as necessary. Nursing notes reviewed. A medical screening exam was performed. Physical Exam BP 114/64 (BP Cuff Location: Left arm, BP Patient Position: Semi fowlers) Pulse 90 Temp 37 ??C (98.6 ??F) (Oral) Resp 18 Ht 165.1 cm (65) Wt 90.7 kg (200 lb) SpO2 99% BMI 33.28 kg/m?? Physical Exam Constitutional: Comments: Uncomfortable appearing HENT: Mouth/Throat: Comments: Slight erythema to the posterior pharynx Cardiovascular: Rate and Rhythm: Normal rate and regular rhythm. Pulmonary: Effort: Pulmonary effort is normal. No respiratory distress. Abdominal: Tenderness: There is no abdominal tenderness. Musculoskeletal: Comments: FROM of lower extremities with pain Significant ttp to lesions, no streaking erythema or circumferential swelling Skin: General: Skin is warm. Findings: Rash present. Comments: Tender raised purpura densely to lower extremities, extending to low abdomen and torso Tender to palpation No weeping Neurological: Mental Status: She is alert. Procedures Procedures Cosigned by Nanda Dumont MD at 06/19/2023 8:39 EST documented in this encounter Plan of Treatment Scheduled Orders Name Type Priority Associated Diagnoses Orde r Schedule POCT TEST, CLINITEK ORDER Lab STAT One Time STAT fo r 1 Occurrences starting 06/17/2023 until 06/17/2023 POCT TEST, CLINITEK Point of Care Testing STAT Once for 1 Occurrences starting 06/17/2023 until 06/17/2023 documented as of this encounter Procedures Procedure Name Priority Date/Time Associated Diagnosis Comments POCT URINE DIPSTICK, CLINITEK STAT 05/20/2024 19:12 EDT Rash POCT URINE CLINITEK (DIPSTICK) - DOES NOT REFLEX STAT 06/17/2023 9:03 EST PROTIME Routine 06/16/2023 22:15 EST COMPLETE BLOOD COUNT AND DIFFERENTIAL STAT 06/16/2023 22:15 EST COMPREHENSIVE METABOLIC PANEL (CMP) STAT 06/16/2023 22:15 EST documented in this encounter Results * (ABNORMAL) POCT URINE DIPSTICK, CLINITEK (05/20/2024 19:12 EDT) Color (Urine) Yellow YELLOW [facility] Clarify (Urine) Clear CLEAR [facility] Glucose (Urine) Negative NEGATIVE [facility] Bilirubin (Urine) Negative NEGATIVE [facility] Ketones (Urine) Negative NEGATIVE [facility] Specific [place] (Urine) 1.025 [facility] Occult Blood (Urine) Large(A) NEGATIVE [facility] pH (Urine) 5.5 [facility] Protein (Urine) 100 mg/dL NEGATIVE [facility] Urobilinogen (Urine) 0.2 0.2 - 1.0 EU/dL [facility] Nitrite (Urine) Negative NEGATIVE [facility] Leukocytes (Urine) Negative NEGATIVE [facility] Urine URINE SPECIMEN OBTAINED BY CLEAN CATCH PROCEDURE / Unknown 05/20/2024 19:12 EDT Leanna Guerra PA-C POINT OF CARE TEST O RDERABLES Final Result Performing Organization Address [facility] Co de Phone Number [address] [address] * PROTIME (06/16/2023 22:15 EST) I.N.R. 1.1 0.9 - 1.1 Ratio 06/16/2023 22:41 EST [facility] Pro Time 12.1 9.7 - 12.8 secs 06/16/2023 22:41 EST [facility] Blood VENOUS BLOOD / Unknown Venipuncture / Unknown 06/16/2023 22:15 EST 06/16/2023 22:23 EST Narrative [facility] - 06/16/2023 22:41 EST Moderate Intensity Coumadin INR = 2.0-3.0 Adjustments in anticoagulant therapy dose should be based on the INR and NOT on the Protime. Leanna Guerra PA-C HEMATOLOGY & PF4 ORD ERABLES Final Result Performing Organization Address City/[facility]/ZIP Co de Phone Number [facility] [address] [place] [address] * (ABNORMAL) COMPREHENSIVE METABOLIC PANEL (CMP) (06/16/2023 22:15 EST) Sodium 138 136 - 145 mmol/L 06/16/2023 22:34 [facility] Potassium 3.5 3.5 - 5.0 mmol/L 06/16/2023 22:34 [facility] Chloride 103 96 - 110 mmol/L 06/16/2023 22:34 [facility] CO2 Total 22 22 - 32 mmol/L 06/16/2023 22:34 [facility] Glucose 96 70 - 99 mg/dl 06/16/2023 22:34 [facility] BUN 7(L) 10 - 26 mg/dL 06/16/2023 22:34 [facility] Creatinine 0.63 0.52 - 1.04 mg/dL 06/16/2023 22:34 [facility] eGFR 116 >60 mL/min/1.7 3m2 06/16/2023 22:34 [facility] Total Protein 7.3 6.3 - 8.2 g/dL 06/16/2023 22:34 [facility] Albumin 4.3 3.4 - 4.9 g/dL 06/16/2023 22:34 [facility] Alkaline Phosphatase 76 38 - 126 U/L 06/16/2023 22:34 [facility] AST 25 15 - 46 U/L 06/16/2023 22:34 [facility] ALT 60(H) <35 U/L 06/16/2023 22:34 [facility] Bilirubin, Total 0.5 <1.4 mg/dL 06/16/20 22:34 [facility] Calcium 9.4 8.5 - 10.5 mg/dL 06/16/2023 22:34 [facility] Albumin/Globulin Ratio 1.4 1.0 - 2.5 g/dL 06/16/2023 22:34 [facility] Anion Gap 13 5 - 14 mmol/L 06/16/2023 22:34 [facility] Blood VENOUS BLOOD / Unknown Venipuncture / Unknown 06/16/2023 22:15 EST 06/16/2023 22:19 EST us Leanna Guerra PA-C CHEMISTRY & BLOOD GA S ORDERABLES Final Result [facility] [address] [place] [address] * (ABNORMAL) COMPLETE BLOOD COUNT AND DIFFERENTIAL (06/16/2023 22:15 EST) WBC 18.38(H) 4.00 - 12.40 K/cmm 06/16/2023 22:31 [facility] RBC 4.78 3.86 - 5.04 M/cmm 06/16/2023 22:31 [facility] Hemoglobin 13.3 11.6 - 15.2 g/dL 06/16/2023 22:31 [facility] HCT 39.2 34.9 - 44.4 % 06/16/2023 22:31 [facility] MCV 82 81 - 98 fL 06/16/2023 22:31 [facility] MCH 27.8 26.7 - 33.3 pg 06/16/2023 22:31 [facility] MCHC 33.9 32.1 - 35.9 g/dL 06/16/2023 22:31 [facility] RDW-CV 12.9 <14.7 % 06/16/2023 22:31 [facility] RDW-SD 38.4 <50.4 fl 06/16/2023 22:31 [facility] PLT 283 141 - 377 K/cmm 06/16/2023 22:31 [facility] MPV 10.0 9.5 - 12.7 fL 06/16/2023 22:31 [facility] % Neutrophils 79.2 % 06/16/2023 22:31 [facility] % Lymphocytes 13.9 % 06/16/2023 22:31 [facility] % Monocytes 5.5 % 06/16/2023 22:31 [facility] % Eosinophils 0.5 % 06/16/2023 22:31 [facility] % Basophils 0.3 % 06/16/2023 22:31 [facility] % Immature Grans 0.6 % 06/16/20 22:31 [facility] Absolute Neutrophils 14.55(H) 2.20 - 8.85 K/cmm 06/16/2023 22:31 [facility] Absolute Lymphocytes 2.55 1.09 - 3.30 K/cmm 06/16/2023 22:31 [facility] Absolute Monocytes 1.02(H) 0.10 - 0.80 K/cmm 06/16/2023 22:31 [facility] Absolute Eosinophils 0.09 0.03 - 0.61 K/cmm 06/16/2023 22:31 [facility] ABS Basophils 0.06 0.01 - 0.11 K/cmm 06/16/2023 22:31 [facility] Absolute Immature Grans 0.11(H) 0.00 - 0.06 K/cmm 06/16/2023 22:31 [facility] Type of Differential: Auto 06/16/2023 22:31 [facility] Blood VENOUS BLOOD / Unknown Venipuncture / Unknown 06/16/2023 22:15 EST 06/16/2023 22:19 EST us Leanna Guerra PA-C PACKAGES & DNA PROBE ORDERABLES Final Result [facility] [address] [place] [address] documented in this encounter Visit Diagnoses Diagnosis Rash- Primary Rash and other nonspecific skin eruption documented in this encounter Administered Medications Inactive Administered Medications - up to 3 most recent administrations Medication Order MAR Action Action Date Dose Rate Site HYDROmorphone (PF) (DILAUDID) 0.5 mg/0.5 mL syringe 0.5 mg 0.5 mg, intravenous, NOW X1, 1 dose, On Fri06/17/23 at 0100, STAT Given 06/17/2023 1:06 EST 0.5 mg morphine injection 2 mg 2 mg, intravenous, NOW X1, 1 dose, On Fri06/16/23 at 2215, STAT Given 06/16/2023 22:14 EST 2 mg oxyCODONE (ROXICODONE) immediate release tablet 5 mg 5 mg, oral, NOW X1, 1 dose, On Fri06/16/23 at 2245, STAT Given 06/16/2023 22:52 EST 5 mg documented in this encounter Active and Recently Administered Medications Due to Daylight Saving Time, this section may contain times in both EDT and EST. Scheduled Medication Order 06/15/2023 06/16/2023 06/17/2023 HYDROmorphone (PF) (DILAUDID) 0.5 mg/0.5 mL syringe 0.5 mg (COMPLETED) 0.5 mg, intravenous, NOW X1, 1 dose, On Fri06/17/23 at 0100, STAT 0106 (Given - Provid er: Monica Norman RN) morphine injection 2 mg (COMPLETED) 2 mg, intravenous, NOW X1, 1 dose, On Fri06/16/23 at 2215, STAT 2214 (Given - Provider: Lindsay Donahue RN) oxyCODONE (ROXICODONE) immediate release tablet 5 mg (COMPLETED) 5 mg, oral, NOW X1, 1 dose, On Fri06/16/23 at 2245, STAT 2252 (Given - Provider: Monica Norman RN) documented in this encounter Orders Admission Count Last Ordered Date First Orde red Date ED OBSERVATION STATUS 1 06/16/2023 documented in this encounter Care Teams Software Tools Build Engineer Relationship Specialty Start Date End Date Jairo Valdez NP [address] [place] [id number] PCP - General Family Medicine - Primary Care 10/28/22 Mary Montana MD [address] [place] [phone] 03/25/19 documented as of this encounter
--- OUTSIDE RECORDS SUMMARY | 2024-09-15 00:26 | XMS_ITS | Encounter Summary ---
Author Organization [facility] Address [address] [place] [address] Care Team Providers Care Procurement Specialist Name Role Phone Mary Montana MD Unavailable Livier Valdez NP Primary Care Provider [phone] Reason for Referral * Radiology Services (Routine/Next Available) - Closed Specialty Diagnoses / Procedures Referred By Contac t Referred To Contact Radiology Diagnoses Lumbar radiculopathy Procedures MR LUMBAR SPINE WO CONTRAST Lynda Wolfe PA-C Phone: tel: fax: [facility] [place] Referral ID Status Reason Start Date Expiration Date Visits Re quested Visits Authorized [id number] Closed 03/14/2023 1 1 Reason for Visit * Radiology Services (Routine/Next Available) - Closed Specialty Diagnoses / Procedures Referred By Contac t Referred To Contact Radiology Diagnoses Lumbar radiculopathy Procedures MR LUMBAR SPINE WO CONTRAST Lynda Wolfe PA-C Phone: tel: fax: [facility] [place] Referral ID Status Reason Start Date Expiration Date Visits Re quested Visits Authorized [id number] Closed 03/14/2023 1 1 Encounter Details Date Type Department Care Team (Latest Contact Info) Description 03/30/2023 13:48 EDT - 03/30/2023 23:59 EDT Hospital Encounter [facility] MRI [address] [place] [address] Lumbar radiculopathy Discharge Disposition: Home or Self Care Social [...] Name Priority Date/Time Associated Diagnosis Comments MR LUMBAR SPINE WO CONTRAST Routine 03/30/2023 14:35 EDT Lumbar radiculopathy documented in this encounter Results * MR LUMBAR SPINE WO CONTRAST (03/30/2023 14:35 EDT) Anatomical Region Laterality Modality Spine Magnetic Resonan ce 03/30/2023 21:3 7 EDT Impressions 03/30/2023 21:37 EDT 1. Mild degenerative spondylosis of the lumbar spine. No nerve root impingement or spinal stenosis. 2. Left adnexal cystic lesion, partially visualized. This could be further evaluated with pelvic ultrasound. [id number] Narrative 03/30/2023 21:37 EDT INDICATION: lumbar radiculopathy; L/S-spine canal stenosis; lumbar radiculopathy;M54.16:Lumbar radiculopathy COMPARISON: Lumbar spine radiograph 03/21/2023. TECHNIQUE: Noncontrast MRI scan of the lumbar spine was performed. Sagittal T1, T2, STIR, coronal fat-suppressed T2 and axial T1 and T2-weighted scans were obtained. FINDINGS: The lower thoracic cord has a normal appearance and the conus terminates at the superior endplate of L1. No fracture or suspicious bone lesion is identified. A left adnexal cystic lesion is partially visualized and likely corresponds to the cystic lesion seen on previous CT performed on 09/23/2022. This could be reevaluated with pelvic ultrasound. There is a small left renal cyst. Disc levels: L1-L2: The L1-L2 disc and facet joints are unremarkable. L2-L3: The L2-L3 disc and facet joints are unremarkable. L3-L4: Mild disc space height loss. Minimal retrolisthesis of L3. Mild posterior broad-based disc bulge. No focal disc protrusion, nerve root impingement or spinal stenosis. Intact facet joints. L4-L5: Mild disc space height loss and decreased disc signal. Mild posterior broad-based disc protrusion and tiny posterior central focal disc protrusion/extrusion with 2 mm of caudal migration. Mild bilateral facet hypertrophy. No nerve root impingement or spinal stenosis. L5-S1: Mild posterior broad-based disc protrusion. No focal disc protrusion, nerve root impingement or spinal stenosis. Mild bilateral facet hypertrophy. Procedure Note Nikhil Yarbrough MD - 03/30/2023 INDICATION: lumbar radiculopathy; L/S-spine canal stenosis; lumbarradiculopathy;M54.16:Lumbar radiculopathy COMPARISON: Lumbar spine radiograph 03/21/2023. TECHNIQUE: Noncontrast MRI scan of the lumbar spine was performed.Sagittal T1, T2, STIR, coronal fat-suppressed T2 and axial T1 andT2-weighted scans were obtained. FINDINGS: The lower thoracic cord has a normal appearance and the conus terminatesat the superior endplate of L1. No fracture or suspicious bone lesion isidentified. A left adnexal cystic lesion is partially visualized andlikely corresponds to the cystic lesion seen on previous CT performed on09/23/2022. This could be reevaluated with pelvic ultrasound. There is asmall left renal cyst. Disc levels: L1-L2: The L1-L2 disc and facet joints are unremarkable. L2-L3: The L2-L3 disc and facet joints are unremarkable. L3-L4: Mild disc space height loss. Minimal retrolisthesis of L3. Mildposterior broad-based disc bulge. No focal disc protrusion, nerve rootimpingement or spinal stenosis. Intact facet joints. L4-L5: Mild disc space height loss and decreased disc signal. Mildposterior broad-based disc protrusion and tiny posterior central focaldisc protrusion/extrusion with 2 mm of caudal migration. Mild bilateralfacet hypertrophy. No nerve root impingement or spinal stenosis. L5-S1: Mild posterior broad-based disc protrusion. No focal discprotrusion, nerve root impingement or spinal stenosis. Mild bilateralfacet hypertrophy. IMPRESSION 1. Mild degenerative spondylosis of the lumbar spine. No nerve rootimpingement or spinal stenosis. 2. Left adnexal cystic lesion, partially visualized. This could be furtherevaluated with pelvic ultrasound. [id number] Lynda Wolfe PA-C IM MRI ORDERABLES Final Res ult documented in this encounter Visit Diagnoses Diagnosis Lumbar radiculopathy Thoracic or lumbosacral neuritis or radiculitis, unspecified documented in this encounter Care Teams Procurement Specialist Relationship Specialty Start Date End Date Livier Valdez NP [address], [place] [id number] PCP - General Family Medicine - Primary Care 10/28/22 Mary Montana MD [address] [place] [address] 03/25/19 documented as of this encounter
--- OUTSIDE RECORDS SUMMARY | 2024-09-15 00:26 | XMS_ITS | Encounter Summary ---
Author Organization [facility] Address [address] [place] [address] Care Team Providers Care Anti Tank Missileman Name Role Phone Mary Montana MD Unavailable Livier Valdez PROMOS EXECUTIVE PRODUCER Primary Care Provider [phone] Encounter Details Date Type Department Care Team (Late st Contact Info) Description 06/16/2023 Results Only [facility] Laboratory Services - Main [place] [address] [place] [address] Livier Valdez, [employer]OMOS EXECUTIVE PRODUCER [address], [place] [id number] Social History Tobacco Use Types Packs/Day Years [...] Procedure Name Priority Date/Time Associated Diagnosis Comments GROUP A STREP BY PCR Routine 06/16/2023 15:18 EST documented in this encounter Results * GROUP A STREP BY PCR (06/16/2023 15:18 EST) Group A Strep PCR NOT DETECTED NOT DETECTED [facility] 06/16/2023 15:1 8 EST us Livier Valdez NP MICROBIOLOGY - GENERAL ORDERABLE S Final Result Performing Organization Address City/State/[facility] Co de Phone Number [facility] [address] [place] [address] documented in this encounter Visit Diagnoses Not on filedocumented in this encounter Care Teams Anti Tank Missileman Relationship Specialty Start Date End Date Livier Valdez NP [address], [place] [id number] PCP - General Family Medicine - Primary Care 10/28/22 Mary Montana MD [address] [place] [phone] 03/25/19 documented as of this encounter
--- OUTSIDE RECORDS SUMMARY | 2024-09-15 00:26 | XMS_ITS | Encounter Summary ---
Author Organization [facility] Address [address] [place] [address] Care Team Providers Care Unix System Administrator Name Role Phone Mary Montana MD Unavailable Livier Valdez ICT ACCOUNT MANAGER Primary Care Provider [phone] Encounter Details Date Type Department Care Team (Latest Contact Info) Description 04/16/2023 Travel Social History Tobacco Use Types Packs/Day [...] Onset Date Last Indicated Resolved Time R/O COVID-04/16/2023 04/16/2023 04/16/2023 23:3 7 EDT COVID-04/16/2023 04/16/2023 05/06/2023 22:1 5 EDT documented as of this encounter Care Teams Unix System Administrator Relationship Specialty Start Date End Date Livier Valdez NP [address] [place] [address] PCP - General Family Medicine - Primary Care 10/28/22 Mary Montana MD [address] [place] [address] 03/25/19 documented as of this encounter
--- OUTSIDE RECORDS SUMMARY | 2024-09-15 00:26 | XMS_ITS | Encounter Summary ---
Author Organization [facility] Address [address] [place] [address] Care Team Providers Care Older Worker Specialist Name Role Phone Mary Montana MD Unavailable Livier Valdez NP Primary Care Provider [phone] Reason for Visit * Reason Onset Date Comments Appointment Related 01/10/2023 Encounter Details Date Type Department Care Team (Late st Contact Info) Description 01/10/2023 Telephone [facility] Interventional Pain [address] [place] [address] Denice Johnston MD [address] [facility] [address] [place] [address] Appointment Related Social History Tobacco [...] encounter Miscellaneous Notes * Telephone Encounter - Ashley Bee - 01/10/2023 1649 EDT Procedure Darlene 02/13/23 at 2:[address] 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 documented in this encounter Plan of Treatment Not on file documented as of this encounter Visit Diagnoses Not on filedocumented in this encounter Care Teams Older Worker Specialist Relationship Specialty Start Date End Date Livier Valdez NP [address] [place] [address] PCP - General Family Medicine - Primary Care 10/28/22 Mary Montana MD [address] [place] [phone] 03/25/19 documented as of this encounter
--- OUTSIDE RECORDS SUMMARY | 2024-09-15 00:26 | XMS_ITS | Encounter Summary ---
Author Organization [facility] Address [address] [place] [address] Care Team Providers Care Driver/Merchandiser Name Role Phone Mary Montana MD Unavailable Livier Valdez BUSINESS STRATEGIST Primary Care Provider [phone] Reason for Visit * Reason Comments Fever Comes in c/o fever, sore throat, fatigue, body aches. Also c/o chest pain which has been intermittent for last two weeks with some increase in anxiety. Recently started on wellbutrin. Chest Pain Encounter Details Date Type Department Care Team (Late st Contact Info) Description 04/16/2023 21:23 EDT - 04/17/2023 0:27 EDT Emergency [facility] Emergency Department [address] [place] [id number] Isaac Hunter MD [address] [place] [address] COVID-19 (Primary Dx) Discharge Disposition: Home or Self [...] Sign Reading Time Taken Comments Blood Pressure 127/68 04/17/2023 0000 EDT Pulse 91 04/17/2023 0000 EDT Temperature 37.2 ??C (98.9 ??F) 04/16/2023 2200 EDT Respiratory Rate 20 04/17/2023 0000 EDT Oxygen Saturation 95% 04/17/2023 0000 EDT Inhaled Oxygen Concentration - - Weight 92.5 kg (204 lb) 04/16/20232118 EDT Height 165.1 cm (5' 5) 04/16/20232118 EDT Body Mass Index 33.95 04/16/20232118 EDT documented in this encounter Functional Status * [...] this encounter Discharge Instructions * Discharge Instructions* Isaac Hunter MD - 04/17/2023 0:09 EDT You were seen today for flulike symptoms. Your COVID testing was positive as we discussed. You are offered antiviral treatment. Recommend plenty of fluid, Tylenol for fevers and body aches. You can also take ibuprofen every 6 hours for body aches as well. Return to the emergency department for increasing shortness of breath, or any other concerns. * Attachments The following attachments cannot be sent through Care Everywhere. * Coronavirus Disease (COVID-19): General Info (Turkish) documented in this encounter Medications at Time of Discharge lactobacillus rhamnosus, GG, (CULTURELLE) 10 billion cell capsule Take 1 Capsule by mouth daily. documented as of this encounter Discharge Disposition Disposition Code Departure Means Destination Comment s Home or Self Snf documented in this encounter ED Notes * Isaac Hunter MD - 04/17/2023 0027 EDT Emergency Department Visit 38-year-old female with flulike symptoms and positive COVID test, please see relevant data for differential diagnosis and medical decision making Patient offered Paxlovid but declined See DCI Diagnosis, lab results, other ancillary study results and discharge instructions/medications and plan for followup were discussed with the pt and/or the family. Indications for emergent return and re-evaluation were also explained. All questions were answered and the pt/family understands and agrees with the current plan. Medical Decision Making Relevant Data as of 04/17/23 1515 Wed Apr 16, 2023 2339 COVID-19 TEST [facility] (TESTING ONLY) [JM] 2333 Smear Review Patient with flulike symptoms. Broad differential considered but not limited to pneumonia, pneumonitis, PE, ACS, CHF. Pleural effusions D-dimer negative making thromboembolic disease unlikely, troponin negative despite chest pain for past 2 days EKG did show some T wave abnormalities in V4 through V6 but no elevation. White count normal, lactic acid normal, CMP with sodium 134 CO2 of 18 COVID testing is positive. Plan will be to treat with Paxil [JM] 8489 EKG independently respirate provider shows sinus tachycardia rate 115, normal axis, normal intervals, there are some T wave changes in the V V3 through V6 distribution. Chest x-ray reviewed by this provider shows no cardiomegaly, no significant infiltrates, no pleuraleffusions, no interstitial edema. [JM] 7943 Smear Review [JM] Darlene Apr 17, 2023 0006 Patient's COVID test is positive. Risk and benefits discussion regarding Paxlovid, patient declines Paxlovid. Recommend symptomatic treatment with scheduled Tylenol every 4 hours not to exceed 3 g in 24 hours. Adequate oral fluids were discussed. If she develops worsening shortness of breath, or other concerns or return for further evaluation. [JM] Relevant Data User Index [JM] Isaac Hunter MD An EKG was obtained and independently interpreted. Laboratory data was reviewed. Medical Decision Making COVID-19: complicated acute illness or injury Amount and/or Complexity of Data Reviewed Labs: ordered. Decision-making details documented in ED Course. Radiology: ordered. Risk Prescription drug management. Final diagnoses: COVID-19 Disposition: Discharged Chief complaint: Flulike symptoms HPI Jonathon Hall is a 38 y.o. female with elevated BMI hyperlipidemia who presents to the ED for subjective fevers, sore throat, body aches and generalized malaise for the past day and a half. Patientstates fever to 105. Denies cough, she is experiencing some intermittent sharp chest pain over the last 2 weeks which ismade her more anxious than usual, she is wondering if this is secondary to her taking Wellbutrin. No diaphoresis, or palpitations. She does endorse some mild shortness of breath Has had no lower extremity swelling, no calf pain or hemoptysis. She has had nausea but no vomiting. She is tried Tylenol with minimal relief History was provided by: Patient Records reviewed include: Triage note, vital signs, nurses notes problem list med list Patient's pertinent PMH, FH, SH were reviewed and edited as necessary. Nursing notes reviewed. A medical screening exam was performed. Physical Exam BP 127/68 (BP Cuff Location: Right arm, BP Patient Position: Semi fowlers) Pulse 91 Temp 37.2 ??C (98.9 ??F) (Oral) Resp 20 Ht 165.1 cm (65) Wt 92.5 kg (204 lb) SpO2 95% BMI 33.95 kg/m?? Physical Exam Nurses notes and vital signs were reviewed The medical screening exam was performed GEN: Well-appearing, awake and alert, nontoxic HEENT: NC/AT, EOMI, external ears normal, nares clear, OP with MMM, no significant erythema or exudate Neck: Supple, shotty posterior cervical adenopathy left greater than right nontender full range of motion, no meningeal sign Chest: NT, CTA B CAR:RRR, no murmur ABD: Nondistended, soft, NT Back: No CVAT EXT: no C/C/E, no calf tenderness Neuro:A/O x 3, no focal weakness, moves all extremities x4, normal gait observed Procedures Procedures * Stef Robledo - 04/16/2023 2216 EDT 12 Lead EKG Performed by STEF ROBLEDO and shown to Isaac Hunter MD. documented in this encounter Plan of Treatment Not on file documented as of this encounter Procedures Procedure Name Priority Date/Time Associated Diagnosis Comments ECG REPORT - SCANNED 04/17/2023 15:55 EDT XR CHEST PORTABLE 1 VIEW STAT 04/16/2023 23:19 EDT ZZCOVID-19 [facility] (TESTING ONLY) STAT 04/16/2023 22:42 EDT COVID-19 TESTING STAT 04/16/2023 22:4 2 EDT ZZHN INFLUENZA A AND B, RSV PCR STAT 04/16/2023 22:42 EDT TROPONIN I STAT 04/16/2023 22:42 EDT D-DIMER STAT 04/16/2023 22:42 EDT EKG 12-LEAD STAT 04/16/2023 22:09 EDT LACTIC ACID WITH REFLEX - USE FOR INITIAL SEPSIS EVALUATION STAT 04/16/2023 22:09 EDT LYME AB SCREEN, IGG AND IGM STAT 04/16/2023 22:09 EDT HN LAB CBC SMEAR REVIEW Today 04/16/2023 22:09 EDT LYME ABS IGG IGM WESTERN BLOT Today 04/16/2023 22:09 EDT ANAPLASMA AND BABESIA TESTING BY PCR STAT 04/16/2023 22:09 EDT BACTERIAL CULTURE, BLOOD STAT 04/16/2023 22:09 EDT COMPLETE BLOOD COUNT AND DIFFERENTIAL STAT 04/16/2023 22:09 EDT COMPREHENSIVE METABOLIC PANEL (CMP) STAT 04/16/2023 22:09 EDT documented in this encounter Results * ECG REPORT - SCANNED (04/17/2023 15:55 EDT) 04/17/2023 15:5 5 EDT us Scan 2 Client Services Vice President PROCEDURE/MINOR SURGICAL OR DERABLES Final Result * XR CHEST PORTABLE 1 VIEW (04/16/2023 23:19 EDT) Anatomical Region Laterality Modality Computed Radiogr aphy 04/16/2023 23:0 8 EDT Impressions 04/16/2023 23:48 EDT 1. ?? No active cardiopulmonary disease. 2. ?? Surgical clips left lower thorax. THIS DOCUMENT HAS BEEN ELECTRONICALLY SIGNED BY EDIN VALDERRAMA MD FOR ANY QUESTIONS OR CONCERNS REGARDING THIS REPORT PLEASE CALL [facility] AT [phone] Narrative 04/16/2023 23:48 EDT PROCEDURE INFORMATION: Exam: XR Chest Exam date and time: 04/16/2023 11:08 PM Age: 38 years old Clinical indication: Fever and other: Chest pain; Additional info: Chest pain and fever TECHNIQUE: Imaging protocol: Radiologic exam of the chest. Views: 1 view. COMPARISON: NM BONE SPECT WITH WHOLE BODY 12/24/2016 12:42 PM FINDINGS: Tubes, catheters and devices: Surgical clips left lower thorax. Lungs: There is no evidence of focal pulmonary consolidation. The pulmonary vasculature is normal. Pleural spaces: There is no evidence of pneumothorax. There are no pleural effusions present. Heart/Mediastinum: The cardiac silhouette is within normal limits. The mediastinum is normal. Bones/joints: The spine, sternum, ribs, and pectoral girdles show no evidence of acute abnormality Soft tissues: There are no soft tissue masses or calcifications. Procedure Note Edin Valderrama MD - 04/16/2023 PROCEDURE INFORMATION: Exam: XR Chest Exam date and time: 04/16/2023 11:08 PM Age: 38 years old Clinical indication: Fever and other: Chest pain; Additional info: Chest pain and fever TECHNIQUE: Imaging protocol: Radiologic exam of the chest. Views: 1 view. COMPARISON: NM BONE SPECT WITH WHOLE BODY 12/24/2016 12:42 PM FINDINGS: Tubes, catheters and devices: Surgical clips left lower thorax. Lungs: There is no evidence of focal pulmonary consolidation. The pulmonary vasculature is normal. Pleural spaces: There is no evidence of pneumothorax. There are no pleural effusions present. Heart/Mediastinum: The cardiac silhouette is within normal limits. The mediastinum is normal. Bones/joints: The spine, sternum, ribs, and pectoral girdles show no evidence of acute abnormality Soft tissues: There are no soft tissue masses or calcifications. IMPRESSION 1. No active cardiopulmonary disease. 2. Surgical clips left lower thorax. THIS DOCUMENT HAS BEEN ELECTRONICALLY SIGNED BY EDIN VALDERRAMA MD FOR ANY QUESTIONS OR CONCERNS REGARDING THIS REPORT PLEASE CALL [facility] [phone] Isaac Hunter MD IMG DIAGNOSTIC IMAGING O RDERABLES Final Result * COVID-19 [facility] (TESTING ONLY) (04/16/2023 22:42 EDT) Swab NASOPHARYNGEAL STRUCTURE / Unknown Swab / Unknown 04/16/2023 22:42 EDT 04/16/2023 22:43 EDT Isaac Hunter MD MICROBIOLOGY - GENERAL O RDERABLES Final Result [facility] [address] [place] [address] * D-DIMER (04/16/2023 22:42 EDT) D-Dimer <150 <=230 ng/mL DDU 04/16/2023 22:54 EDT [facility] Comment:(Range) Below Linear Range Blood VENOUS BLOOD / Unknown Venipuncture / Unknown 04/16/2023 22:42 EDT 04/16/2023 22:42 EDT Narrative [facility] - 04/16/2023 22:54 EDT Cutoff value for the exclusion of DVT and PE: 230 ng/mL D-dimer units. Any use of the age-adjusted cutoff value is a post-analytic modification of this FDA-approved test and is considered off-label use of the test result. Isaac Hunter MD HEMATOLOGY & PF4 ORDERAB LES Final Result Performing Organization Address [facility] Co de Phone Number [facility] [address] [place] [address] * TROPONIN I (04/16/2023 22:42 EDT) [facility] Troponin I (ng/mL) <0.034 <0.034 ng/mL 04/16/2023 23:11 EDT [facility] Blood VENOUS BLOOD / Unknown Venipuncture / Unknown 04/16/2023 22:42 EDT 04/16/2023 22:42 EDT Narrative [facility] - 04/16/2023 23:11 EDT The results of this assay can be falsely lowered due to the consumption of Biotin. Isaac Hunter MD CHEMISTRY & BLOOD GAS OR DERABLES Final Result Performing Organization Address [facility] Co de Phone Number [facility] [address] [place] [address] * (ABNORMAL) COVID-19 TESTING (04/16/2023 22:42 EDT) Pathologist [facility] COVID-19 rt-PCR Result Positive(AA) Negative 04/16/2023 23:37 EDT [facility] Performing Lab Cepheid GeneXpert [facility] 04/16/2023 23:37 EDT [facility] Swab NASOPHARYNGEAL STRUCTURE / Unknown Swab / Unknown 04/16/2023 22:42 EDT 04/16/2023 22:43 EDT Isaac Hunter MD MICROBIOLOGY - GENERAL O RDERABLES Final Result Performing Organization Address [facility] Co de Phone Number [facility] [address] [place] [address] * INFLUENZA A AND B,RSV PCR (04/16/2023 22:42 EDT) FLU A RNA Result (FLARES) Negative Negative 04/16/2023 23:37 EDT [facility] FLU B RNA Result (FLBRES) Negative Negative 04/16/2023 23:37 EDT [facility] RSV RNA Result (RSVRES) Negative Negative 04/16/2023 23:37 EDT [facility] Swab NASOPHARYNGEAL STRUCTURE / Unknown Swab / Unknown 04/16/2023 22:42 EDT 04/16/2023 22:43 EDT Isaac Hunter MD MICROBIOLOGY - GENERAL O RDERABLES Final Result Performing Organization Address [facility] Co de Phone Number [facility] [address] [place] [address] * EKG 12-LEAD (04/16/2023 22:09 EDT) 04/16/2023 22:0 9 EDT Narrative [facility] - 04/17/2023 14:06 EDT ? [facility] ? Test Date: ?2023-04-16 Pat Name: ? NAHOAMI BUTCH ?Department: ? Room: ? C01 Gender: ? Female ? Intermediate Project Manager: ?? TC : ?1985 ? Requested By: ERASTO Olivo Order Number: [id number] ? Reading MD: ?? OBED TRINH MD ? Measurements Intervals ?[place] ? Rate: ? 115 ?P: ?36 ND: ? 154 ?QRS: ?25 QRSD: ? 76 ? T: ?-2 QT: ? 292 ? QTc: ?403 ? Interpretive Statements Sinus tachycardia Compared to ECG 11/15/2013 19:30:07 Myocardial infarct finding now present T-wave abnormality now present I reviewed the tracing and have either agreed or edited the findings in this report. Electronically Signed On 04-17-2023 14:06:31 EDT by OBED TRINH MD. Procedure Note Obed Trinh MD - 04/17/2023 [facility] Test Date: 2023-04-16 Pat Name: JONATHON HALL Department: Room: [facility] Gender: Female Intermediate Project Manager: TC : 1985 Requested By: ERASTO Olivo Order Number: [id number] Reading MD: OBED TRINH MD Measurements Intervals [place] Rate: 115 P: 36 ND: 154 QRS: 25 QRSD: 76 T: -2 QT: 292 QTc: 403 Interpretive Statements Sinus tachycardia Compared to ECG 11/15/2013 19:30:07 Myocardial infarct finding now present T-wave abnormality now present I reviewed the tracing and have either agreed or edited the findings inthis report. Electronically Signed On 04-17-2023 14:06:31 EDT by OBED OSORIO. Isaac Hunter MD CARDIAC ECG ORDERABLES F inal Result [facility] * LYME ABS IGG IGM WESTERN BLOT (04/16/2023 22:09 EDT) IGG IMMUNOBLOT Negative Negative 04/21/2023 13:54 EDT [facility] IGG DETECTED AGAINST: None kDa 04/21/2023 13:54 EDT [facility] IGM IMMUNOBLOT Negative Negative 04/21/2023 13:54 EDT [facility] IGM DETECTED AGAINST: p41 kDa 04/21/2023 13:54 EDT [facility] INTERPRETATION LYME DISEASE SEE NOTE 04/21/2023 13:54 EDT [facility] Comment: Specific serologic response to B. burgdorferi infection is not detected, but cannot rule out early infection during which low or undetectable antibody levels to B. burgdorferi may be present. ??If clinically indicated, a new serum specimen should be submitted in 7-14 days. ADDITIONAL INFORMATION Per CDC criteria, the Lyme IgG Immunoblot is interpreted as positive if IgG-class antibodies are detected to >=5 B. burgdorferi proteins, and the Lyme IgM Immunoblot is interpreted as positive if IgM-class antibodies are detected to >=2 B. burgdorferi proteins. Immunoblot patterns not meeting these criteria should not be interpreted as positive. Epitopes from certain B. burgdorferi proteins (e.g., p41) are conserved across other bacteria, which may lead to the detection of IgM- and/or IgG-class antibodies on the Lyme disease immunoblots in patients without Lyme disease. Immunoblot should only be ordered on specimens that are positive or equivocal by a FDA-licensed Lyme disease antibody screening test (e.g., EIA). Results of the Lyme IgM immunoblot should not be considered in patients with >= 30 days of symptoms. Test Performed by: [place] [address] Rn Rehab: Wan Rodriguez M.D. Ph.D.; CLIA# [id number] Blood VENOUS BLOOD / Unknown Venipuncture / Unknown 04/16/2023 22:09 EDT 04/17/2023 9:14 EDT Isaac Hunter MD HEMATOLOGY & PF4 ORDERAB LES Final Result Performing Organization Address City/[facility]/ZIP Co de Phone Number [facility] [address] [place] [address] * LAB CBC SMEAR REVIEW (04/16/2023 22:09 EDT) Differential Comment Slide was examined by a technologist to verify the WBC and/or platelet count. 04/16/2023 22:53 EDT [facility] Blood VENOUS BLOOD / Unknown Venipuncture / Unknown 04/16/2023 22:09 EDT 04/16/2023 22:21 EDT Isaac Hunter MD HEMATOLOGY & PF4 ORDERAB LES Final Result [facility] [address] [place] [address] * (ABNORMAL) LYME AB SCREEN, IGG AND IGM (04/16/2023 22:09 EDT) Pathologist [facility] Lyme Antibody, IgG Negative Negative 04/17/2023 9:14 EDT [facility] Lyme Antibody, IgM Presumptive Positive(A) Negative 04/17/2023 9:14 EDT [facility] Blood VENOUS BLOOD / Unknown Venipuncture / Unknown 04/16/2023 22:09 EDT 04/16/2023 22:20 EDT Narrative [facility] - 04/17/2023 9:14 EDT NOTE: PRESUMPTIVE POSITIVE: Lyme Immunoblot confirmation testing has been added by reflex. Isaac Hunter MD IMMUNOLOGY AND SEROLOGY ORDERABLES Final Result Performing Organization Address [facility] Co de Phone Number [facility] [address] [place] [address] * ANAPLASMA AND BABESIA TESTING BY PCR (04/16/2023 22:09 EDT) Pathologist [facility] Anaplasma phagocytophilum Negative Negative 04/18/2023 10:[address] [facility] Babesia Species Negative Negative 10:[address] [facility] Blood VENOUS BLOOD / Unknown Venipuncture / Unknown 04/16/2023 22:09 EDT 04/16/2023 22:[address] [facility] - 04/18/2023 10:46 EDT This test was developed and its performance characteristics determined by [facility]. It has not been cleared or approved by the US Food and Drug Administration. FDA does not require this test to go through premarket FDA review. This test is used for clinical purposes. It should not be regarded as investigational or research. This laboratory is certified under the Clinical Laboratory Improvement Amendments (CLIA) as qualified to perform high complexity clinical laboratory testing. Isaac Hunter MD CHEMISTRY & BLOOD GAS OR DERABLES Final Result Performing Organization Address City/[facility]/ZIP Co de Phone Number [facility] [address] [place] [address] * BACTERIAL CULTURE, BLOOD (04/16/2023 22:09 EDT) Organism ID No Growth at 5 days VITEK SUSCEPTIBILITY 04/21/2023 22:32 EDT [facility] Blood VENOUS BLOOD / Unknown Venipuncture / Unknown 04/16/2023 22:09 EDT 04/16/2023 22:20 EDT Isaac Hunter MD MICROBIOLOGY - GENERAL O RDERABLES Final Result Performing Organization Address [facility] Co de Phone Number [facility] [address] [place] [address] * LACTIC ACID WITH REFLEX - USE FOR INITIAL SEPSIS EVALUATION (04/16/2023 22:09 EDT) Pathologist [facility] Lactic Acid 1.1 <=2.0 mmol/L 04/16/2023 22:40 EDT [facility] Blood VENOUS BLOOD / Unknown Venipuncture / Unknown 04/16/2023 22:09 EDT 04/16/2023 22:21 EDT us Isaac Hunter MD CHEMISTRY & BLOOD GAS OR DERABLES Final Result Performing Organization Address [facility] Co de Phone Number [facility] [address] [place] [address] * (ABNORMAL) COMPREHENSIVE METABOLIC PANEL (CMP) (04/16/2023 22:09 EDT) Sodium 134(L) 136 - 145 mmol/L 04/16/2023 22:39 EDT [facility] Potassium 3.9 3.5 - 5.0 mmol/L 04/16/2023 22:39 EDT [facility] Chloride 103 96 - 110 mmol/L 04/16/2023 22:39 EDT [facility] CO2 Total 18(L) 22 - 32 mmol/L 04/16/2023 22:39 EDT [facility] Glucose 94 70 - 99 mg/dl 04/16/2023 22:39 [facility] BUN 8(L) 10 - 26 mg/dL 04/16/2023 22:39 [facility] Creatinine 0.81 0.52 - 1.04 mg/dL 04/16/2023 22:39 [facility] eGFR 95 >60 mL/min/1.7 3m2 04/16/2023 22:39 [facility] Total Protein 7.8 6.3 - 8.2 g/dL 04/16/2023 22:39 [facility] Albumin 4.5 3.4 - 4.9 g/dL 04/16/2023 22:39 [facility] Alkaline Phosphatase 71 38 - 126 U/L 04/16/2023 22:39 [facility] AST 33 15 - 46 U/L 04/16/2023 22:39 [facility] ALT 37(H) <35 U/L 04/16/2023 22:39 [facility] Bilirubin, Total 0.4 <1.4 mg/dL 04/16/20 22:39 [facility] Calcium 9.6 8.5 - 10.5 mg/dL 04/16/2023 22:39 [facility] Albumin/Globulin Ratio 1.4 1.0 - 2.5 g/dL 04/16/2023 22:39 [facility] Anion Gap 13 5 - 14 mmol/L 04/16/2023 22:39 [facility] Blood VENOUS BLOOD / Unknown Venipuncture / Unknown 04/16/2023 22:09 EDT 04/16/2023 22:20 EDT us Isaac Hunter MD CHEMISTRY & BLOOD GAS OR DERABLES Final Result [facility] [address] [place] [address] * (ABNORMAL) COMPLETE BLOOD COUNT AND DIFFERENTIAL (04/16/2023 22:09 EDT) WBC 6.94 4.00 - 12.40 K/cmm 04/16/2023 22:32 [facility] RBC 4.99 3.86 - 5.04 M/cmm 04/16/2023 22:32 [facility] Hemoglobin 13.7 11.6 - 15.2 g/dL 04/16/2023 22:32 [facility] HCT 41.4 34.9 - 44.4 % 04/16/2023 22:32 [facility] MCV 83 81 - 98 fL 04/16/2023 22:32 [facility] MCH 27.5 26.7 - 33.3 pg 04/16/2023 22:32 [facility] MCHC 33.1 32.1 - 35.9 g/dL 04/16/2023 22:32 [facility] RDW-CV 12.6 <14.7 % 04/16/2023 22:32 [facility] RDW-SD 38.0 <50.4 fl 04/16/2023 22:32 [facility] PLT 286 141 - 377 K/cmm 04/16/2023 22:32 [facility] MPV 9.8 9.5 - 12.7 fL 04/16/2023 22:32 [facility] % Neutrophils 81.5 % 04/16/2023 22:32 [facility] % Lymphocytes 6.6 % 04/16/2023 22:32 [facility] % Monocytes 9.9 % 04/16/2023 22:32 [facility] % Eosinophils 0.7 % 04/16/2023 22:32 [facility] % Basophils 0.6 % 04/16/2023 22:32 [facility] % Immature Grans 0.7 % 04/16/20 22:32 [facility] Absolute Neutrophils 5.65 2.20 - 8.85 K/cmm 04/16/2023 22:32 EDT [facility] Absolute Lymphocytes 0.46(L) 1.09 - 3.30 K/cmm 04/16/2023 22:32 T [facility] Absolute Monocytes 0.69 0.10 - 0.80 K/cmm 04/16/2023 22:32 [facility] Absolute Eosinophils 0.05 0.03 - 0.61 K/cmm 04/16/2023 22:32 T [facility] ABS Basophils 0.04 0.01 - 0.11 K/cmm 04/16/2023 22:32 [facility] Absolute Immature Grans 0.05 0.00 - 0.06 K/cmm 04/16/2023 22:32 [facility] [facility] Type of Differential: Auto 04/16/2023 22:32 [facility] Blood VENOUS BLOOD / Unknown Venipuncture / Unknown 04/16/2023 22:09 EDT 04/16/2023 22:21 EDT Isaac Hunter MD PACKAGES & DNA PROBE ORD ERABLES Final Result Performing Organization Address City/State/[facility] Co de Phone Number [facility] [address] [place] [id number] documented in this encounter Visit Diagnoses Diagnosis COVID-19- Primary documented in this encounter Administered Medications Inactive Administered Medications - up to 3 most recent administrations Medication Order MAR Action Action Date Dose Rate Site acetaminophen (OFIRMEV) IV solution 1,000 mg 1,000 mg, intravenous, NOW X1, 1 dose, On Darlene 04/17/23 at 0000, STAT Given 04/16/2023 23:56 EDT 1,000 mg lactated ringers BOLUS 1,000 mL 1,000 mL, intravenous, NOW X1, 1 dose, On Darlene 04/17/23 at 0000, STAT New Bag 04/16/2023 23:57 EDT 1,000 mL documented in this encounter Active and Recently Administered Medications Times are shown in EDT. Scheduled Medication Order 04/15/2023 04/16/2023 04/17/2023 acetaminophen (OFIRMEV) IV solution 1,000 mg (COMPLETED) 1,000 mg, intravenous, NOW X1, 1 dose, On Darlene 04/17/23 at 0000, STAT 2356 (Given - Provider: Roseline Valencia, RN) 0023 (Completed - Provider: Roseline Valencia, RN) lactated ringers BOLUS 1,000 mL (COMPLETED) 1,000 mL, intravenous, NOW X1, 1 dose, On Darlene 04/17/23 at 0000, STAT 2357 (New Bag - Provider: Roseline Valencia, RN) 0023 (Completed - Provider: Roseline Valencia, RN) documented in this encounter Additional Health Concerns Infection Onset Date Last Indicated Resolved Time R/O COVID-04/16/2023 04/16/2023 04/16/2023 23:3 7 EDT COVID-04/16/2023 04/16/2023 05/06/2023 22:1 5 EDT documented as of this encounter Care Teams Driver/Merchandiser Relationship Specialty Start Date End Date Livier Valdez NP [address] [place] [address] PCP - General Family Medicine - Primary Care 10/28/22 Mary Montana MD [address] [place] [phone] 03/25/19 documented as of this encounter
--- OUTSIDE RECORDS SUMMARY | 2024-09-15 00:26 | XMS_ITS | Encounter Summary ---
Author Organization [facility] Address [address] [place] [address] Care Team Providers Care Enrichment Teacher Name Role Phone Mary Montana MD Unavailable Livier Valdez THEOLOGY PROFESSOR Primary Care Provider [phone] Reason for Visit * Radiology Services (Routine/Next Available) - Authorization Not Required Specialty Diagnoses / Procedures Referred By Conteric t Referred To Contact Diagnoses Lumbar radiculopathy Procedures XR LUMBAR SPINE 4+ VIEWS Lynda Wolfe PA-C Phone: tel: fax: [facility] Referral ID Status Reason Start Date Expiration Date Visits Requested Visits Authorized [id number] Authorization Not Required 03/14/2023 1 1 Encounter Details Date Type Department Care Team (Latest Contact Info) Description 03/21/2023 12:59 EDT - 03/21/2023 23:[address] [facility] Xray [address] [place] [address] Discharge Disposition: Home or Self Care Social [...] Name Priority Date/Time Associated Diagnosis Comments XR LUMBAR SPINE 4+ VIEWS Routine 03/21/2023 13:19 EDT Lumbar radiculopathy documented in this encounter Results * XR LUMBAR SPINE 4+ VIEWS (03/21/2023 13:19 EDT) Anatomical Region Laterality Modality Computed Radiogr aphy 03/21/2023 13:2 3 EDT Impressions 03/21/2023 13:23 EDT Mild degenerative spondylosis [id number] Narrative 03/21/2023 13:23 EDT INDICATION: lumbar radiculopathy;M54.16:Lumbar radiculopathy TECHNIQUE: 4 views lumbar spine COMPARISON: None. FINDINGS: There are 5 nonrib-bearing, lumbar-type vertebral bodies. The vertebral body heights are maintained. Minimal convex rightward curvature is centered at T12-L1. In the neutral position, the posterior spinal alignment is anatomic. No dynamic instability is detected with flexion/extension. Mild to space narrowing is present at L2-L3, L3-L4 and L4-L5. Mild lower lumbar facet arthrosis is present. Procedure Note Charlie Valdez MD - 03/21/2023 INDICATION: lumbar radiculopathy;M54.16:Lumbar radiculopathy TECHNIQUE: 4 views lumbar spine COMPARISON: None. FINDINGS: There are 5 nonrib-bearing, lumbar-type vertebral bodies. Thevertebral body heights are maintained. Minimal convex rightward curvatureis centered at T12-L1. In the neutral position, the posterior spinalalignment is anatomic. No dynamic instability is detected withflexion/extension. Mild to space narrowing is present at L2-L3, L3-L4 andL4-L5. Mild lower lumbar facet arthrosis is present. IMPRESSION Mild degenerative spondylosis [id number] Lynda Wolfe PA-C IMG DIAGNOSTIC IMAGING ORDER BETTINA Final Result documented in this encounter Visit Diagnoses Not on filedocumented in this encounter Care Teams Enrichment Teacher Relationship Specialty Start Date End Date Livier Valdez NP [address] [place] [address] PCP - General Family Medicine - Primary Care 10/28/22 Mary Montana MD [address] [place] [address] 03/25/19 documented as of this encounter
--- OUTSIDE RECORDS SUMMARY | 2024-09-15 00:26 | XMS_ITS | Encounter Summary ---
Author Organization [facility] Address [address] [place] [address] Care Team Providers Care Human Factors Specialist Name Role Phone Mary Montana MD Unavailable Livier Valdez NP Primary Care Provider [phone] Reason for Visit * Reason Comments Back Pain Patient is here for lower back pain * Referral (Routine/Next Available) - Closed Specialty Diagnoses / Procedures Referred By [facility] Referred To Contact Pain Medicine Diagnoses Lumbar disc herniation with radiculopathy Procedures EPIDURAL STEROID INJECTION ON THE SPINE WITH FLUOROSCOPY Lynda Wolfe PA-C Phone: tel: fax: [facility] Interventional Pain [address] [place] [address] Phone: tel: fax: Referral ID Status Reason Start Date Expiration Date Visits Re quested Visits Authorized [id number] Closed 12/27/2022 1 1 Encounter Details Date Type Department Care Team (Latest Contact Info) Description 02/13/2023 14:00 EDT Procedure visit [facility] Interventional Pain [address] [place] [address] Denice Johnston MD [address] [place] [address] [address] [place] [address] Lumbar radiculopathy (Primary Dx) Social History Tobacco Use Types [...] Sign Reading Time Taken Comments Blood Pressure 126/68 02/13/2023 1416 EDT Pulse 74 02/13/2023 1416 EDT Temperature 36.2 ??C (97.1 ??F) 02/13/2023 1345 EDT Respiratory Rate 16 02/13/2023 1416 EDT Oxygen Saturation 100% 02/13/2023 1345 EDT Inhaled Oxygen Concentration - - Weight [...] this encounter Patient Instructions * Patient Instructions* Daily, TANIA Molina - 02/13/2023 14:00 EDT [facility] [address] [address] Patient Instructions You have had your left lumbar Transforaminal Epidural Steroid Injection. The purpose of this procedure has been to place medication which may help relieve your pain. Steroid may be used to decrease the swelling and nerve irritation which may be causing your pain. The following information should help you over the next few days regarding what you may expect. Please take it easy for the rest of today. DO NOT drive a car for the remainder of the day. If you feel sore where the needle(s) entered for the block or develop a flare-up of pain over the next few days, please use ice on the area. You may leave the ice on for up to 20 minutes at a time. Do not use heat, as this may cause swelling. As long as your primary doctor has indicated no restrictions, you may take a mild pain medicine, such as acetaminophen (Tylenol), ibuprofen (Advil, Nuprin, Motrin IB, etc.) or aspirin, if needed. The steroid injection usually takes a few days to become effective. On average, you may notice somerelief in 3 -5 days. However, it may take up to 10 - 14 days to know whether the injection was helpful. If the block causes numbness/weakness, it should wear off within a few hours. If the area that the needle(s) were inserted becomes hot, red, swollen, or increasingly tender, or if you develop a fever (100.5 or greater) or chills along with these symptoms, please call our office immediately. If you develop increasingly severe back pain, continued numbness or weakness of the legs or changesin your bladder or bowel functions, please call our office immediately. Instructions for follow-up If you have any questions about your block, please call Patient Education Topic: Method: Handout and Verbal Taught to: Patient Barriers: None Outcomes: independent and verbalized understanding Signature: TRACY WARNER RN documented in this encounter Progress Notes * Nevaeh Easton MA - 02/13/2023 1400 EDT [facility] Rooming Note Does patient have a Jewel Hole Cornerer? Yes Is patient NPO? (Solids since midnight & liquids for 4 hrs) No Blood Thinners: Is patient on Blood Thinners? No If yes, taking? If stopped, who authorized stopping? Related comments: Infections: Any recent infections, fever of illnesses? No If on antibiotics, is it 7-10 days past the date of completion of antibiotics? No : (for females of child-bearing age) Is there a chance current ? No Do you have any type of implanted device? No Vaccination: Have you had or are you planning to have a vaccination in the 2 weeks? No Other: No * Tracy Warner RN - 02/13/2023 1400 EDT ATTENTION: An active Time-Out initiated by the Provider requires that all members of the proceduralsupport team are present and must stop activity until the Time-Out is completed. The Nurse will have in their possession the signed consent to compare to the verbal verification ofthe items below: [Verified] Patient identifier #1: Full Name [Verified] Patient Identifier #2: Date of [Verified] No allergy to sterile prep products, steroids, local anesthetics, band-aids, or contrastdye [Verified] Full team and patient verification of location of pain and procedure to be performed [Verified] Site marked (Region and/or Laterality) [Verified] Presence of Implantable Devices [Verified] Safety devices are in place (Grounding pad, X-rays available, and/or Magnet) [Verified] Consent signed and matches planned procedure and site marking [Verified] Active verbal communication by the entire procedural team was completed. * Denice Johnston MD - 02/13/2023 1400 EDT Patient Name: Jonathon Hall : 1985 Date of Service: 02/13/2023 Chief Complaint: Chief Complaint Patient presents with ??? Back Pain Patient is here for lower back pain Copyman: Denice Johnston MD Supply Chain Technician: None Procedure: Diagnostic and potentially Therapeutic lumbar transforaminal epidural steroid injections at left L4-5 (per clinic note and given narrowing at this level, note discrepancy between note and order) Interval History: Patient presents today for continued evaluation and treatment of their chronic back and left leg pain. Details of the current complaint as described in the consultation notes from Lynda Wolfe's last encounter and augmented as necessary including pain onset, location, course, workup, therapeutic attempts, and associated functional limitations were reviewed/confirmed with the patient. Patient currently denies any progressive weakness, unexplained fever, new trauma, or unexplained weight loss. The patient denies recent changes in the character, quality, or distribution of the pain. They deny new associated symptoms such as changes in strength, sensation, or bladder control. Previous medicalrecords including current medications, anticoagulation status, any signs of current infection, and new imaging were reviewed. Injection History: 02/13/2023: Left L45 TFESI Allergies: Allergies Allergen Reactions ??? Amantadine Other reaction(s): rash and fever ??? Amitriptyline Other reaction(s): drowsiness ??? Penicillin Other reaction(s): hives/fever Physical Exam: Vitals: BP 126/68 (BP Cuff Location: Right arm, BP Patient Position: Sitting, BP Cuff Sizes: Adult,long) Pulse 74 Temp 36.2 ??C (97.1 ??F) (Tympanic) Resp 16 SpO2 100% General: Patient is alert and oriented, no acute distress Lungs: symmetric chest rise, no evidence of labored breathing Skin: clear, warm, dry and intact and no rashes, bruises or petechiae noted MSK/Neuro: Sit-stand transfers independently. Gait: Ambulates independently. Assessment: 1. Lumbar radiculopathy Plan: Ms. Jonathon Hall is a 37 y.o. female that presents to the pain clinic to undergo lumbar transforaminal epidural steroid injections in regards to her chronic back pain. All risks, benefits, and alternatives were thoroughly explained to Ms. Jonathon Hall who verbally communicated understanding of the management plan. Proceed with a diagnostic and potentially therapeutic transforaminal epidural steroid injection at left L4-L5. Follow up: jairon Wolfe; pt had reproduction of sx w injection but if suboptimal relief can try the L5-S1 level (note and order discrepancy) PROCEDURE: The patient gave informed written consent to proceed with this procedure following a detailed discussion of the risks and benefits associated with transforaminal epidural steroid injection in the lumbar spine including but not limited to infection, bleeding, headache, intrathecal injection, allergic reaction, further exacerbation of current symptoms, neurological injury, and lack of efficacy. Thepatient was then placed in the prone position, the skin over the lumbosacral area was marked and prepped with chlorhexadine, and the site was draped in sterile fashion. A timeout was performed with full staff present to identify the patient, verify the procedure being performed, and review allergies. Flouoroscopy was used to visualize the aforementioned neuroforamen. The skin and subcutaneous tissue over this level was anesthetized by infiltration of 1% lidocaine. A 22 guage 5.0 inch spinal needle was inserted under fluoroscopic guidance using coaxial technique. The needle was slowly advanced by posterolateral approach to the superior aspect of the foramen. Fluoroscopic images in the AP and lateral views were taken to confirm final needle tip position in the distal foramen. No parasthesias occurred during needle insertion and aspiration was negative. Contrast dye was injected under live fluoroscopy and revealed good spread along the nerve root with no evidence of intravascular or intrathecal uptake. After negative aspiration, 10 mg Dexamethasone and 0.5 ml 0.25% Bupivacaine was injected. The needle was then flushed and withdrawn. The patient tolerated the procedure well, there were no apparent complications, and she was discharged in stable condition. Written and verbal discharge i nstructions were reviewed with the patient prior to discharge. Denice Johnston MD documented in this encounter Plan of Treatment Not on file documented as of this encounter Visit Diagnoses Diagnosis Lumbar radiculopathy- Primary Thoracic or lumbosacral neuritis or radiculitis, unspecified documented in this encounter Administered Medications Inactive Administered Medications - up to 3 most recent administrations Medication Order MAR Action Action Date Dose Rate Site BUPivacaine (PF) (MARCAINE) 0.25 % (2.5 mg/mL) injection 1 mL 1 mL, neural-axial, NOW X1, 1 dose, On Darlene 02/13/23 at 1430, Routine Given by Other 02/13/2023 14:13 EDT 1 mL dexAMETHasone (DECADRON) injection 10 mg 10 mg, neural-axial, NOW X1, 1 dose, On Darlene 02/13/23 at 1430, Routine Given by Other 02/13/2023 14:13 EDT 10 mg Iohexol (OMNIPAQUE 180) injection 1 mL 1 mL, neural-axial, NOW X1, 1 dose, On Darlene 02/13/23 at 1430, Routine Given by Other 02/13/2023 14:13 EDT 1 mL documented in this encounter Care Teams Human Factors Specialist Relationship Specialty Start Date End Date Livier Valdez, PRESCHOOL TEACHER AIDE [address] [place], [place] [id number] PCP - General Family Medicine - Primary Care 10/28/22 Mary Montana MD [address] [place] [phone] 03/25/19 documented as of this encounter
--- OUTSIDE RECORDS SUMMARY | 2024-09-15 00:26 | XMS_ITS | Encounter Summary ---
Author Organization [facility] Address [address] [place] [address] Care Team Providers Care Configuration Analyst Name Role Phone Mary Montana MD Unavailable Livier Valdez TELE RN Primary Care Provider [phone] Reason for Visit * Reason Comments Pain Encounter Details Date Type Department Care Team (Late st Contact Info) Description 04/10/2023 8:00 EDT Telemedicine [facility]ics & Spine Medicine [address] [place] [address] Lynda Wolfe PA-C [address] [facility] [address] [place], [place] [id number] Left hip pain (Primary Dx) Social History Tobacco Use [...] Progress Notes * Lynda Wolfe PA-C - 04/10/2023 0800 EDT 04/09/2023 PATIENT: Jonathon Hall Primary Care Provider: Livier Valdez [address] [facility] [address] Referring Provider: LAKSHMI Marshall [address] [place] [address] CHIEF COMPLAINT No chief complaint on file. HISTORY OF PRESENT ILLNESS Jonathon Hall is a very pleasant 38 y.o. female with a PMH of fatty liver who was referred by Anuja Chavira PA-C regarding left sided lumbo-pelvic pain which developed during 3 years ago. Pain intermittently radiates into the left foot With numbness. She reports dyspareunia. She attended physical therapy. Since her last visit, she underwent an L4-[address] Johnston on 02/13/23. She reports 1 week ofimprovement with full symptom return. She continues to have numbness into the great toe on the left. She has been working with [facility] and has had some benefit but this is $100/week as insurance offers no coverage. Some of the therapists there believed there could be a component coming from her hip. Injection History: 02/13/2023: Left L4-5 TFESI HPI Treatments to date for this complaint have included: [] Physical therapy [] nurse wound care or massage therapy [] Home exercise program [] Anti-inflammatories [] Neuropathic pain medications [] Muscle relaxer [] Steroids [] Opioids [] Pain management evaluation [] Injections or Radiofrequency Ablations [] TENS unit [] Alternative modalities (acupuncture, biofeedback, etc.) MEDICAL HISTORY Patient has a past medical history of Abnormal Pap smear of cervix and Back pain. SURGICAL HISTORY Patient has a past surgical history that includes Cervix surgery; Abdominoplasty; Breast enhancement surgery; Tubal ligation; and Rotator cuff repair (Right). MEDICATIONS Patient has a current medication list which includes the following prescription(s): lactobacillus rhamnosus (gg). ALLERGIES Patient is allergic to amantadine, amitriptyline, and penicillin. FAMILY HISTORY Patient's family history [...] have personally reviewed and interpreted the direct CT imaging and the findings were discussed indetail with the patient using models and images. CT abd/pelvis 09/26/22: There is a diffuse disc bulge at L4-5 with mild central canal stenosis and mild foraminal stenosis. Otherwise WNL. S/p tubal ligation. Large left ovarian cyst. MRI lumbar 03/30/23: There is a mild disc bulge at L4-5 with mild lateral recess stenosis. NO high grade central canal or foraminal stenosis. Lumbar x-ray 03/21/23: WNL for stated age DIAGNOSIS There were no encounter diagnoses. ASSESSMENT/PLAN There are no diagnoses linked to this encounter. The patient's physical exam is suggestive of a left L5 radiculopathy which is consistent with a diffuse disc bulge at L4-5 incidentally noted on MRI, however, mechanical pressure is not significant. She has some concern her hip is involved and reports some pain with ROM of the hip at the joint. We will order an x-ray of the hip although traditionally hip pathology would not cause radicular symptoms of this nature. We discussed options. If hip is WNL, we could attempt an L4-5 IL approach in the hope her benefit is more longer lasting. She does not wish to take medication. She has completed PT without benefit and continues an alternative exercise program. The risks and benefits of these treatments were discussed today in detail. The patient expressed understanding of these risks and is agreeable with proceeding with this plan of care. Lynda Wolfe PA-C [facility]ics & Sp[facility] Medicine [address] [place] [address] [place] [address] documented in this encounter Plan of Treatment [...] right hemipelvis on the prior CT. Suggest COMPANY LAUNDRY WORKER follow-up. THIS DOCUMENT HAS BEEN ELECTRONICALLY SIGNED BY ANGELICA YAÑEZ MD FOR ANY QUESTIONS OR CONCERNS REGARDING THIS REPORT PLEASE CALL [facility] AT [phone] Narrative 05/20/2023 12:16 EDT PROCEDURE INFORMATION: Exam: [...] right hemipelvis on the prior CT. Suggest COMPANY LAUNDRY WORKER follow-up. THIS DOCUMENT HAS BEEN ELECTRONICALLY SIGNED BY ANGELICA YAÑEZ MD FOR ANY QUESTIONS OR CONCERNS REGARDING THIS REPORT PLEASE CALL [facility] [phone] us Lynda Wolfe PA-C IMG DIAGNOSTIC IMAGING ORDER BETTINA Final Result documented in this encounter Visit Diagnoses Diagnosis Left hip pain- Primary Pain in joint, pelvic region and thigh documented in this encounter Care Teams Configuration Analyst Relationship Specialty Start Date End Date Livier Valdez NP [address] [place], [place] [phone] PCP - General Family Medicine - Primary Care 10/28/22 Mary Montana MD [address] [place] [phone] 03/25/19 documented as of this encounter
--- OUTSIDE RECORDS SUMMARY | 2024-09-15 00:26 | XMS_ITS | Encounter Summary ---
Author Organization [facility] Address [address] [place] [address] Care Team Providers Care Transport Nurse Name Role Phone Mary Montana MD Unavailable Livier Valdez NP Primary Care Provider [phone] Reason for Visit * Reason Onset Date Comments Referral Request 01/10/2023 Encounter Details Date Type Department Care Team (Late st Contact Info) Description 01/10/2023 Telephone [facility] Interventional Pain [address] [place] [address] Unknown, Provider, Referral Request Social History Tobacco Use Types Packs/Day Years [...] encounter Miscellaneous Notes * Telephone Encounter - Carmel Hathaway - 01/10/2023 1451 EDT Received the following voicemail 01/10/23: My name is Dalila Hall. I was referred to your clinic from the pain clinic and [place]. They said you guys could get me and potentially a month sooner. So I was just calling to see if that was still a possibility can someone please call me back [phone] again, my name is Kandice Hall and [place] is [address]. Thank you. documented in this encounter Plan of Treatment Not on file documented as of this encounter Visit Diagnoses Not on filedocumented in this encounter Care Teams Transport Nurse Relationship Specialty Start Date End Date Livier Valdez NP [address] [place] [address] PCP - General Family Medicine - Primary Care 10/28/22 Mary Montana MD [address] [place] [phone] 03/25/19 documented as of this encounter
--- OUTSIDE RECORDS SUMMARY | 2024-09-15 00:26 | XMS_ITS | Encounter Summary ---
Author Organization [facility] Address [address] [place] [address] Care Team Providers Care Site Acquisition Specialist Name Role Phone Mary Montana MD Unavailable Livier Valdez BIN PILER Primary Care Provider [phone] Reason for Visit * Reason Onset Date Comments Results 02/14/2023 Encounter Details Date Type Department Care Team (Late st Contact Info) Description 02/14/2023 Telephone [facility] Interventional Pain [address] [place] [address] Daily, TANIA Molina Results Social History Tobacco Use Types Packs/Day Years [...] encounter Miscellaneous Notes * Telephone Encounter - Tracy Warner RN - 02/14/2023 0855 EDT ----- Message from Tracy Warner RN sent at 02/13/2023 14:16 EDT ----- Regarding: results Diagnostic injection done on: 02/13/23 Provider: Vickie Levels: L4-5 TFESI Call back number: [phone] Injection History: 02/13/2023: Left L45 TFESI Follow up call - diagnostic injection Injection date and procedure: 02/13/2023: Left L45 TFESI Location of pain/symptoms that the patient is calling about: back left Initial pain score: 4/10 Post procedure pain score: 0/10 Current pain level: 6 (scale 0-10: 0 is no pain, 10 is worst pain ever) How many hours of relief from pain/symptoms on the day of the injection? 6 Was there significant functional relief or functional improvement? Yes (yes = 80% or greater relief) Which daily activities was the patient able to do better? sitting, standing, bending forward and packing, lifting heavy objects Patient additional feedback: Once pain medicine wore off, pt was extremely sore, only slept an hour. Pt did state that she probably over did things yesterday while the numbing medicine was working, as she did a bunch of chores around the house, moving and lifting heavy objects as well as packing for an upcoming vacation. Ice, shower, and ibuprofen helped relieve her pain. Next step/appt per MD plan: RN obtained the above diagnostic TFESI results. Encouraged pt to be patient as the steroid will start working in the upcoming days. Reiterated the importance of not soaking/swimming for 48 hours postprocedure due to the risk of infection. Provided clinic phone number if pt has any further questions. Pt verbalized understanding. documented in this encounter Plan of Treatment Not on file documented as of this encounter Visit Diagnoses Not on filedocumented in this encounter Care Teams Site Acquisition Specialist Relationship Specialty Start Date End Date Livier Valdez, BIN PILER [address] [place] [address] PCP - General Family Medicine - Primary Care 10/28/22 Mary Montana MD [address] [place] [phone] 03/25/19 documented as of this encounter
--- OUTSIDE RECORDS SUMMARY | 2024-09-15 00:26 | XMS_ITS | Encounter Summary ---
Author Organization [facility] Address [address] [place] [address] Care Team Providers Care Dental Laboratory Assistant Name Role Phone Mary Montana MD Unavailable Livier Valdez BANBURY MIXER OPERATOR Primary Care Provider [phone] Encounter Details Date Type Department Care Team (Late st Contact Info) Description 06/07/2023 Lab Requisition [facility] Pathology & Laboratory Medicine - [facility] [address] [place], [place] [id number] Outr Resulting Lab, Provider Social History Tobacco [...] on filedocumented in this encounter Care Teams Dental Laboratory Assistant Relationship Specialty Start Date End Date Livier Valdez NP [address] [place] [address] PCP - General Family Medicine - Primary Care 10/28/22 Mary Montana MD [address] [place] [phone] 03/25/19 documented as of this encounter
--- OUTSIDE RECORDS SUMMARY | 2024-09-15 00:26 | XMS_ITS | Encounter Summary ---
Author Organization [facility] Address [address] [place] [address] Care Team Providers Care Er Manager Name Role Phone Mary Montana MD Unavailable Livier Valdez WHOLESALER Primary Care Provider [phone] Encounter Details Date Type Department Care Team (Late st Contact Info) Description 06/02/2023 Lab Requisition [facility] Pathology & Laboratory Medicine - [facility] [address] [place] [address], [place] [address] Outr Resulting Lab, Provider Social History Tobacco [...] Associated Diagnosis Comments MOLECULAR VAGINITIS/VAGINOSIS ASSAY Routine 06/02/2023 17:16 EDT documented in this encounter Results * MOLECULAR VAGINITIS/VAGINOSIS ASSAY (06/02/2023 17:16 EDT) Malika Species Invalid Negative 8:48 T [facility] Comment: An INVALID or INDETERMINATE result for this test is an indicator that the sample was not suitable for testing after running the test twice. It is not a lab error. Either there was no DNA or RNA in the sample or there was an interfering substance (e.g. mucus) that prevented detection of any human or viral DNA or RNA. ??Recollection of the specimen should be considered. This is a corrected result. Previous result was Negative on 06/03/2023 at 1428 EDT Malika glabrata Invalid Negative 06/09/20 8:48 T [facility] Comment: An INVALID or INDETERMINATE result for this test is an indicator that the sample was not suitable for testing after running the test twice. It is not a lab error. Either there was no DNA or RNA in the sample or there was an interfering substance (e.g. mucus) that prevented detection of any human or viral DNA or RNA. ??Recollection of the specimen should be considered. This is a corrected result. Previous result was Negative on 06/03/2023 at 1428 EDT Trichomonas Vaginalis Invalid Negative 06/09/2023 8:48 T [facility] Comment: An INVALID or INDETERMINATE result for this test is an indicator that the sample was not suitable for testing after running the test twice. It is not a lab error. Either there was no DNA or RNA in the sample or there was an interfering substance (e.g. mucus) that prevented detection of any human or viral DNA or RNA. ??Recollection of the specimen should be considered. This is a corrected result. Previous result was Negative on 06/03/2023 at 1428 EDT BV (Bacterial vaginosis) Invalid Negative 06/09/2023 8:48 EDT [facility] Comment: An INVALID or INDETERMINATE result for this test is an indicator that the sample was not suitable for testing after running the test twice. It is not a lab error. Either there was no DNA or RNA in the sample or there was an interfering substance (e.g. mucus) that prevented detection of any human or viral DNA or RNA. ??Recollection of the specimen should be considered. This is a corrected result. Previous result was Negative on 06/03/2023 at 1428 EDT Swab VAGINAL STRUCTURE / Unknown 06/02/2023 17:16 EDT 06/02/2023 21:54 EDT Narrative [facility] - 06/09/2023 8:48 EDT No swab in sample. Corrected results to account for potential false negative results. Sample will need to be recollected in clinically warranted. Credit issued for charges. us Provider Outr Resulting Lab MICROBIOLOGY - GENER AL ORDERABLES Edited Result - Final Performing Organization Address City/State/[facility] Co de Phone Number [facility] [address] [place] [address] documented in this encounter Visit Diagnoses Not on filedocumented in this encounter Care Teams Er Manager Relationship Specialty Start Date End Date Livier Valdez NP [address] [place] [address] PCP - General Family Medicine - Primary Care 10/28/22 Mary Montana MD [address] [place] [phone] 03/25/19 documented as of this encounter
--- OUTSIDE RECORDS SUMMARY | 2024-09-15 00:26 | XMS_ITS | Encounter Summary ---
Author Organization [facility] Address [address] [place] [address] Care Team Providers Care Merchandising Consultant Name Role Phone Mary Montana MD Unavailable Livier Valdez DIRECTOR OF TECHNOLOGY Primary Care Provider [phone] Encounter Details Date Type Department Care Team (Late st Contact Info) Description 06/16/2023 Results Only [facility] Laboratory Services - Main [place] [address] [place] [address] Livier Valdez, DIRECTOR OF TECHNOLOGY [address] [place], [place] [id number] Social History Tobacco Use Types Packs/Day Years [...] Procedure Name Priority Date/Time Associated Diagnosis Comments INFLUENZA, RSV PCR Routine 06/16/2023 15 :18 EST documented in this encounter Results * INFLUENZA, RSV PCR (06/16/2023 15:18 EST) Influenza A PCR NEGATIVE NEGATIVE [facility] Influenza B PCR NEGATIVE NEGATIVE [facility] RSV PCR NEGATIVE NEGATIVE [facility] Covid-19 PCR NEGATIVE NEGATIVE [facility] Comment: This test has been authorized by FDA under an EUA for use by authorized laboratories. Negative results do not preclude SARS-CoV-2 infection and should not be used as the sole basis for treatment or other patient management decision. Negative results must be combined with clinical observations, patient history and epidemiological information. 06/16/2023 15:1 8 EST Livier Valdez NP HEMATOLOGY & PF4 ORDERABLES Edit ed Result - Final Performing Organization Address City/State/[facility] Co de Phone Number [facility] [address], [place] [id number] documented in this encounter Visit Diagnoses Not on filedocumented in this encounter Care Teams Merchandising Consultant Relationship Specialty Start Date End Date Livier Valdez NP [address] [place], [place] [id number] PCP - General Family Medicine - Primary Care 10/28/22 Mary Montana MD [address] [place] [phone] 03/25/19 documented as of this encounter
--- OUTSIDE RECORDS SUMMARY | 2024-09-15 00:26 | XMS_ITS | Encounter Summary ---
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 Emergency Department [address] [place] [address] Aislinn Pitts MD [address] [place] [address] Vasculitis limited to skin (Primary Dx); Epigastric pain Discharge Disposition: Home or Self Care Social [...] Sign Reading Time Taken Comments Blood Pressure 107/69 06/12/2023 0705 EDT Pulse 76 06/12/2023 0705 EDT Temperature 36.7 ??C (98 ??F) 06/12/2023 0306 EDT Respiratory Rate 18 06/12/2023 0500 EDT Oxygen Saturation 99% 06/12/2023 0705 EDT Inhaled Oxygen Concentration - - Weight [...] this encounter Discharge Instructions * Discharge Instructions* Aislinn Pitts MD - 06/12/2023 7:13 EDT Follow-up with your PCP regarding the results of your ultrasound and to discuss possibly starting prednisone if your rash persists or worsens. Follow up with SANE RN for Pap smear Return for increasing pain, fever, worsening symptoms or any other concerns. * Attachments The following attachments cannot be sent through Care Everywhere. * Vasculitis: General Info ([place]ese) documented in this encounter Medications at Time of Discharge lactobacillus rhamnosus, GG, (CULTURELLE) 10 billion cell capsule Take 1 Capsule by mouth daily. methylphenidate HCl (RITALIN;METHYLIN ) 5 mg tablet Take 2 Tablets by mouth daily. Patient reports 20mg documented as of this encounter Discharge Disposition Disposition Code Departure Means Destination Comment s Home or Self Retirement documented in this encounter ED Notes * Aislinn Pitts MD - 06/12/2023 0407 EDT Emergency Department Visit Medical Decision Making 38-year-old female presents with multiple complaints including sudden onset of epigastric pain and vomiting 5 hours prior to arrival. Patient states she noted blood in her vomit. Associated chills. No fevers. Patient states that she is also developed a rash on her bilateral lower extremities after being prescribed doxycycline 1 week ago for presumed uterine infection. Patient states she was seen at [facility] and after an evaluation there are multiple test she was prescribed doxycycline. Patientwas seen by PCP earlier today for the her rash and was told to stop taking doxycycline but to startAugmentin and was prescribed a cream. Patient noted to have palpable purpura and nonblanching petechiae bilateral lower extremities extending from dorsal aspect of feet to bilateral knees. Lesions have not coalesced. Patient states lesions are painful. No itching. Thighs consistent with vasculitis secondary to drug administration, likely doxycycline Patient continues to have abdominal pain mostly in epigastric region. Patient states that she is also has had abdominal pain and irregular vaginal bleeding for the last few weeks. Patient had initially been given IV fluids and Toradol for discomfort. Patient continues to be uncomfortable. EKG obtained which shows a normal sinus rhythm at 70. No acute ischemic changes. Normal intervals. Patient given 1.25 droperidol with improvement of symptoms. Labs show an elevated WBC. Concern for diverticulitis, obstruction, perforation, appendicitis, ovarian cyst, gastroenteritis, GERD, PID, mass Obtained results from [facility]. Patient sample for trichomonas, chlamydia and gonorrhea were negative. CT abdomen/pelvis obtained which showed possible small amount of heterogeneous free fluid in the cul-de-sac. Alternatively, this represent volume averaging with a somewhat prominent heterogeneous cervix. Consider pelvic ultrasound for further evaluation. Consider Pap smear for further evaluation. Bilateral water attenuation adnexal cysts measuring as large as 3.8 cm, most likely represent follicles. Ultrasound of pelvis ordered. U/S showed 1. Endometrium 7 mm in thickness, containing trace fluid and intrauterine device. 2. ?? 8 mm cervical nabothian cyst. 3. ?? Left ovary with a 3.0 cm simple cyst and internal venous flow. Arterial flow not assessed. 4. ?? Right ovary with a 3.9 cm simple cyst and internal arterial and venous flow. Patient remains slightly nauseated but is requesting discharge home. Additional Zofran given. Suspect nausea and vomiting may be related to antibiotic. Advised patient to follow-up with PCP should discuss worsen as she may require treatment with prednisone for her vasculitis. Patient advised to discontinue both doxycycline and Augmentin. Also advised patient to follow-up with [facility] RN for a Pap smear. Will D/C home. Return precaution provided. An EKG was obtained and independently interpreted. Laboratory data was reviewed. Medical Decision Making Amount and/or Complexity of Data Reviewed Labs: ordered. Decision-making details documented in ED Course. Radiology: ordered. Decision-making details documented in ED Course. ECG/medicine tests: ordered and independent interpretation performed. Decision- making details documented in ED Course. Risk Prescription drug management. Final diagnoses: Vasculitis limited to skin Epigastric pain Disposition: Discharged Chief complaint: Abdominal pain and rash HPI Jonathon Hall is a 38 y.o. female presents with multiple complaints including sudden onset of epigastric pain and vomiting 5 hours prior to arrival. Patient states she noted blood in her vomit. Associated chills. No fevers. Patient states that she is also developed a rash on her bilateral lower extremities after being prescribed doxycycline 1 week ago for presumed uterine infection. Patient states she was seen at [facility] and after an evaluation there are multiple test she was prescribed doxycycline. Patient was seen by PCP earlier today for the her rash and was told to stop taking doxycycline but to start Augmentin and was prescribed a cream. History was provided by: Patient Records reviewed include: Chart review including ED visit 04/16/2023 for COVID-19 Patient's pertinent PMH, FH, SH were reviewed and edited as necessary. Nursing notes reviewed. A medical screening exam was performed. Physical Exam BP 107/69 Pulse 76 Temp 36.7 ??C (98 ??F) Resp 18 SpO2 99% Physical Exam Vitals and nursing note reviewed. Constitutional: General: She is not in acute distress. Appearance: Normal appearance. She is obese. She is not ill-appearing. HENT: Head: Normocephalic and atraumatic. Right Ear: External ear normal. Left Ear: [...] There is no mass. Tenderness: There is abdominal tenderness in the epigastric area. There is no guarding or rebound. Musculoskeletal: General: No swelling or deformity. Normal range of motion. Cervical back: Normal range of motion and neck supple. Skin: General: Skin is warm and dry. Findings: Rash present. Comments: palpable purpura and nonblanching petechiae bilateral lower extremities extending from dorsal aspect of feet to bilateral knees. Lesions have not coalesced. Patient states lesions are painful. No itching. Neurological: General: No focal deficit present. Mental Status: She is alert and oriented to person, place, and time. Psychiatric: Mood and Affect: Mood normal. Behavior: Behavior normal. Procedures Procedures * Jessica Wing RN - 06/12/2023 0307 EDT Patient presents with sudden onset epigastric pain and emesis beginning at 1900. Endorses hematemesis, chills. Denies fever. Patient also notes a rash to BLE. Prescribed doxycycline for PID 1 week ago. BLE rash started shortly after. Saw PCP today for rash, prescribed augmentin and sent for blood work. TTP epigastric region. Petechial rash to BLE. No respiratory distress. VSS. documented in this encounter Plan of Treatment Not on file documented as of this encounter Procedures Procedure Name Priority Date/Time Associated Diagnosis Comments ECG REPORT - SCANNED 06/13/2023 9:13 EDT US PELVIS TRANSVAGINAL COMPLETE STAT 06/12/2023 6:[address] ABDOMEN PELVIS W CONTRAST STAT 06/12/2023 4:58 EDT EKG 12-LEAD STAT 06/12/2023 4:31 EDT COMPLETE BLOOD COUNT AND DIFFERENTIAL STAT 06/12/2023 3:21 EDT C REACTIVE PROTEIN STAT 06/12/2023 3: 21 EDT COMPREHENSIVE METABOLIC PANEL (CMP) STAT 06/12/2023 3:21 EDT documented in this encounter Results * ECG REPORT - SCANNED (06/13/2023 9:13 EDT) 06/13/2023 9:13 EDT us Scan 2 Food Counter Attendant PROCEDURE/MINOR SURGICAL OR DERABLES Final Result * US PELVIS TRANSVAGINAL COMPLETE (06/12/2023 6:41 EDT) Anatomical Region Laterality Modality Pelvis Ultrasound 06/12/2023 6:17 EDT Impressions 06/12/2023 7:18 EDT 1. ?? Endometrium 7 mm in thickness, containing trace fluid and intrauterine device. 2. ?? 8 mm cervical nabothian cyst. 3. ?? Left ovary with a 3.0 cm simple cyst and internal venous flow. Arterial flow not assessed. 4. ?? Right ovary with a 3.9 cm simple cyst and internal arterial and venous flow. THIS DOCUMENT HAS BEEN ELECTRONICALLY SIGNED BY ANABELA TELLEZ MD FOR ANY QUESTIONS OR CONCERNS REGARDING THIS REPORT PLEASE CALL [facility] AT [phone] Narrative 06/12/2023 7:18 EDT PROCEDURE INFORMATION: Exam: US Pelvis, Transvaginal and US Duplex Artery or Vein of the Abdominal and/or Reproductive Organs, Limited Ovaries Exam date and time: 06/12/2023 6:17 AM Age: 38 years old Clinical indication: Abnormal findings; Abnormal imaging test; Additional info: Heterogenous cervix LABS AND CLINICAL REPORTS: Last menstrual period start date: Unknown TECHNIQUE: Imaging protocol: Real-time transvaginal pelvic ultrasound with image documentation. Transvaginal imaging was used for better evaluation of the endometrium, adnexa, and/or cervix. Real-time duplex ultrasound scan of the arterial or venous flow with anne scale, color Doppler flow and spectral waveform analysis with image documentation. Limited duplex exam focused on the ovaries. Duplex exam was performed to evaluate for torsion and other vascular conditions. COMPARISON: US PELVIS TRANSVAGINAL COMPLETE 02/27/2023 3:45 PM FINDINGS: Uterus: The uterus measures 8.61 cm x 5.2 cm x 6.86 cm. It is retroverted and homogeneous in echotexture, without demonstrated lesion. The endometrium measures 7 mm in thickness and contains trace fluid. An intrauterine device is present. Cervix: An 8 x 8 x 8 mm cervical nabothian cyst is noted. Right ovary/adnexa: The right ovary measures 4.79 cm x 4 cm x 4.5 cm. It contains a 2.8 x 3.3 x 3.9 cm simple cyst. There is internal arterial and venous flow to the ovary. Left ovary/adnexa: The left ovary measures 4.03 cm x 2.81 cm x 3.75 cm. It contains a 2.9 x 2.1 x 3.0 cm simple cyst. There is internal venous flow to the ovary. Arterial flow not assessed. Intraperitoneal space: No significant free fluid. Procedure Note Anabela Tellez MD - 06/12/2023 PROCEDURE INFORMATION: Exam: US Pelvis, Transvaginal and US Duplex Artery or Vein of the Abdominal and/or Reproductive Organs, Limited Ovaries Exam date and time: 06/12/2023 6:17 AM Age: 38 years old Clinical indication: Abnormal findings; Abnormal imaging test; Additional info: Heterogenous cervix LABS AND CLINICAL REPORTS: Last menstrual period start date: Unknown TECHNIQUE: Imaging protocol: Real-time transvaginal pelvic ultrasound with image documentation. Transvaginal imaging was used for better evaluation of the endometrium, adnexa, and/or cervix. Real-time duplex ultrasound scan of the arterial or venous flow with anne scale, color Doppler flow and spectral waveform analysis with image documentation. Limited duplex exam focused on the ovaries. Duplex exam was performed to evaluate for torsion and other vascular conditions. COMPARISON: US PELVIS TRANSVAGINAL COMPLETE 02/27/2023 3:45 PM FINDINGS: Uterus: The uterus measures 8.61 cm x 5.2 cm x 6.86 cm. It is retroverted and homogeneous in echotexture, without demonstrated lesion. The endometrium measures 7 mm in thickness and contains trace fluid. An intrauterine device is present. Cervix: An 8 x 8 x 8 mm cervical nabothian cyst is noted. Right ovary/adnexa: The right ovary measures 4.79 cm x 4 cm x 4.5 cm. It contains a 2.8 x 3.3 x 3.9 cm simple cyst. There is internal arterial and venous flow to the ovary. Left ovary/adnexa: The left ovary measures 4.03 cm x 2.81 cm x 3.75 cm. It contains a 2.9 x 2.1 x 3.0 cm simple cyst. There is internal venous flow to the ovary. Arterial flow not assessed. Intraperitoneal space: No significant free fluid. IMPRESSION 1. Endometrium 7 mm in thickness, containing trace fluid and intrauterine device. 2. 8 mm cervical nabothian cyst. 3. Left ovary with a 3.0 cm simple cyst and internal venous flow. Arterial flow not assessed. 4. Right ovary with a 3.9 cm simple cyst and internal arterial and venous flow. THIS DOCUMENT HAS BEEN ELECTRONICALLY SIGNED BY ANABELA TELLEZ MD FOR ANY QUESTIONS OR CONCERNS REGARDING THIS REPORT PLEASE CALL [facility] [phone] Aislinn Pitts MD [facility] OB ORDERABLES F inal Result * CT ABDOMEN PELVIS W CONTRAST (06/12/2023 4:58 EDT) Anatomical Region Laterality Modality Body, Abdomen, Pelvis, Abdomen and Pelvis Computed Tomography 06/12/2023 4:36 EDT Impressions 06/12/2023 5:49 EDT 1. ?? Possible small amount of heterogeneous free fluid in the cul-de-sac. ??Alternatively, this may represent volume averaging with a somewhat prominent heterogeneous cervix. ??Consider pelvic ultrasound for further evaluation. ??Consider Pap smear for further evaluation. 2. ?? Bilateral water attenuation adnexal cysts measuring as large as 3.8 cm, which most likely represent follicles. No further imaging is recommended. (Reference: Rafael) REFERENCES: Rafael et al. Management of Incidental Adnexal Findings on CT and MRI: A White Paper of the ACR Incidental Findings Committee, J Am Lsisette Radiol. 2019;17(2):248-254. THIS DOCUMENT HAS BEEN ELECTRONICALLY SIGNED BY ANGELICA NÚÑEZ MD FOR ANY QUESTIONS OR CONCERNS REGARDING THIS REPORT PLEASE CALL [facility] AT [phone] Narrative 06/12/2023 5:49 EDT PROCEDURE INFORMATION: Exam: CT Abdomen And Pelvis With Contrast Exam date and time: 06/12/2023 4:36 AM Age: 38 years old Clinical indication: Other: Epigastric pain TECHNIQUE: Imaging protocol: Computed tomography of the abdomen and pelvis with contrast. Radiation optimization: All CT scans at this facility use at least one of these dose optimization techniques: automated exposure control; mA and/or kV adjustment per patient size (includes targeted exams where dose is matched to clinical indication); or iterative reconstruction. Contrast material: OMNIPAQUE 350; Contrast volume: 100 ml; Contrast route: INTRAVENOUS (IV); ?? REPORTING DATA: Count of CT and Cardiac NM exams in prior 12 months: This patient has received [address] and 0 known cardiac nuclear medicine studies in the 12 months prior to the current study. COMPARISON: CT ABDOMEN PELVIS W CONTRAST 09/26/2022 2:08 PM FINDINGS: Lungs: Mild dependent changes at the lung bases. Liver: Normal. No mass. Gallbladder and bile ducts: The gallbladder is surgically absent. No biliary dilatation. Pancreas: Normal. No ductal dilation. Spleen: Normal. No splenomegaly. Adrenal glands: Normal. No mass. Kidneys and ureters: Subcentimeter low-attenuation structure in the left kidney, too small to characterize by CT but likely benign, requiring no further follow-up. Otherwise unremarkable kidneys. Stomach and bowel: Unremarkable. No obstruction. No mucosal thickening. Appendix: The appendix is unable to be delineated, however no inflammatory changes are seen in the expected region of the appendix. Intraperitoneal space: ??Possible small amount of heterogeneous free fluid in the cul-de-sac (image 118/series 201, image 75/series 203). ??No free air. No significant fluid collection. Vasculature: Unremarkable. No abdominal aortic aneurysm. Lymph nodes: Unremarkable. No enlarged lymph nodes. Urinary bladder: Unremarkable as visualized. Reproductive: Retroverted uterus. IUD in grossly satisfactory position. A 2.6 x 3.6 x 2.5 cm (5 HU) and a 3.4 x 3.8 x 3.8 cm water attenuation right adnexal cyst. ??The cervix is somewhat prominent and heterogeneous in appearance. ??Otherwise unremarkable reproductive structures. Bones/joints: Unremarkable. No acute fracture. Soft tissues: Unremarkable. Procedure Note Angelica Núñez MD - 06/12/2023 PROCEDURE INFORMATION: Exam: CT Abdomen And Pelvis With Contrast Exam date and time: 06/12/2023 4:36 AM Age: 38 years old Clinical indication: Other: Epigastric pain TECHNIQUE: Imaging protocol: Computed tomography of the abdomen and pelvis with contrast. Radiation optimization: All CT scans at this facility use at least one of these dose optimization techniques: automated exposure control; mA and/or kV adjustment per patient size (includes targeted exams where dose is matched to clinical indication); or iterative reconstruction. Contrast material: OMNIPAQUE 350; Contrast volume: 100 ml; Contrast route: INTRAVENOUS (IV); REPORTING DATA: Count of CT and Cardiac NM exams in prior 12 months: This patient has received [address] and 0 known cardiac nuclear medicine studies in the 12 months prior to the current study. COMPARISON: CT ABDOMEN PELVIS W CONTRAST 09/26/2022 2:08 PM FINDINGS: Lungs: Mild dependent changes at the lung bases. Liver: Normal. No mass. Gallbladder and bile ducts: The gallbladder is surgically absent. No biliary dilatation. Pancreas: Normal. No ductal dilation. Spleen: Normal. No splenomegaly. Adrenal glands: Normal. No mass. Kidneys and ureters: Subcentimeter low-attenuation structure in the left kidney, too small to characterize by CT but likely benign, requiring no further follow-up. Otherwise unremarkable kidneys. Stomach and bowel: Unremarkable. No obstruction. No mucosal thickening. Appendix: The appendix is unable to be delineated, however no inflammatory changes are seen in the expected region of the appendix. Intraperitoneal space: Possible small amount of heterogeneous free fluid in the cul-de-sac (image 118/series 201, image 75/series 203). No free air. No significant fluid collection. Vasculature: Unremarkable. No abdominal aortic aneurysm. Lymph nodes: Unremarkable. No enlarged lymph nodes. Urinary bladder: Unremarkable as visualized. Reproductive: Retroverted uterus. IUD in grossly satisfactory position. A 2.6 x 3.6 x 2.5 cm (5 HU) and a 3.4 x 3.8 x 3.8 cm water attenuation right adnexal cyst. The cervix is somewhat prominent and heterogeneous in appearance. Otherwise unremarkable reproductive structures. Bones/joints: Unremarkable. No acute fracture. Soft tissues: Unremarkable. IMPRESSION 1. Possible small amount of heterogeneous free fluid in the cul-de-sac. Alternatively, this may represent volume averaging with a somewhat prominent heterogeneous cervix. Consider pelvic ultrasound for further evaluation. Consider Pap smear for further evaluation. 2. Bilateral water attenuation adnexal cysts measuring as large as 3.8 cm, which most likely represent follicles. No further imaging is recommended. (Reference: Rafael) REFERENCES: Rafael et al. Management of Incidental Adnexal Findings on CT and MRI: A White Paper of the ACR Incidental Findings Committee, J Am Lissette Radiol. 2020 Sep;17(2):248-254. THIS DOCUMENT HAS BEEN ELECTRONICALLY SIGNED BY ANGELICA NÚÑEZ MD FOR ANY QUESTIONS OR CONCERNS REGARDING THIS REPORT PLEASE CALL [facility] [phone] us Aislinn Pitts MD IMG CT ORDERABLES Gissell l Result * EKG 12-LEAD (06/12/2023 4:31 EDT) 06/12/2023 4:31 EDT [facility] 06/13/2023 9:08 EDT ? CV ? Test Date: ?2023-06-12 Pat Name: ? NAHOAMI BUTCH ?Department: ? Room: ? A04 Gender: ? Female ? 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 LW : ?1985 ? Requested By: ALEKSANDER ZAYAS Order Number: [id number] ? Reading MD: ?? DEMETRI CURTIS MD ? Measurements Intervals ?Raccoon ? Rate: ? 70 ? P: ?47 CT: ? 144 ?QRS: ?31 QRSD: ? 80 ? T: ?21 QT: ? 392 ? QTc: ?423 ? Interpretive Statements Normal sinus rhythm with sinus arrhythmia Compared to ECG 04/16/2023 22:09:39 Sinus tachycardia no longer present I reviewed the tracing and have either agreed or edited the findings in this report. Electronically Signed On 06-13-2023 09:08:49 EDT by DEMETRI CURTIS MD. Procedure Note Demetri Curtis MD - 06/13/2023 [facility] [place]: 2023-06-12 Pat Name: JONATHON HALL Department: Room: A04 Gender: Female Mineral Surveying Technician: PRAMOD : 1985 Requested By: ALEKSANDER LOPEZ Order Number: [id number] Reading MD: DEMETRI CURTIS MD Measurements Intervals Raccoon Rate: 70 P: 47 CT: 144 QRS: 31 QRSD: 80 T: 21 QT: 392 QTc: 423 Interpretive Statements Normal sinus rhythm with sinus arrhythmia Compared to ECG 04/16/2023 22:09:39 Sinus tachycardia no longer present I reviewed the tracing and have either agreed or edited the findings inthis report. Electronically Signed On 06-13-2023 09:08:49 EDT by DEMETRI SRINIVASAN. Aislinn Pitts MD CARDIAC ECG ORDERABLES Final Result Performing Organization Address City/[facility]/ZIP Co de Phone Number [facility] * C REACTIVE PROTEIN (06/12/2023 3:21 EDT) [facility] C-Reactive Protein 6.5 <10.0 mg/L 06/12/2023 3:43 EDT [facility] Blood VENOUS BLOOD / Unknown Venipuncture / Unknown 06/12/2023 3:21 EDT 06/12/2023 3:24 EDT Aislinn Pitts MD CHEMISTRY & BLOOD GAS ORDERABLES Final Result Performing Organization Address City/[facility]/ZIP Co de Phone Number [facility] [address] [place] [address] * (ABNORMAL) COMPREHENSIVE METABOLIC PANEL (CMP) (06/12/2023 3:21 EDT) [facility] Sodium 139 136 - 145 mmol/L 06/12/2023 3:43 EDT [facility] Potassium 3.9 3.5 - 5.0 mmol/L 06/12/2023 3:43 EDT [facility] Chloride 105 96 - 110 mmol/L 06/12/2023 3:43 EDT [facility] CO2 Total 22 22 - 32 mmol/L 06/12/2023 3:43 EDT [facility] Glucose 109(H) 70 - 99 mg/dl [facility] BUN 11 10 - 26 mg/dL 06/12/2023 3:43 [facility] Creatinine 0.67 0.52 - 1.04 mg/dL 06/12/2023 3:43 [facility] eGFR 114 >60 mL/min/1.7 3m2 06/12/2023 3:43 [facility] Total Protein 7.6 6.3 - 8.2 g/dL 06/12/2023 3:43 [facility] Albumin 4.3 3.4 - 4.9 g/dL 06/12/2023 3:43 [facility] Alkaline Phosphatase 62 38 - 126 U/L 06/12/2023 3:43 [facility] AST 44 15 - 46 U/L 06/12/2023 3:43 [facility] ALT 40(H) <35 U/L 06/12/2023 3:43 [facility] Bilirubin, Total 0.9 <1.4 mg/dL 06/12/20 3:43 [facility] Calcium 9.8 8.5 - 10.5 mg/dL 06/12/2023 3:43 [facility] Albumin/Globulin Ratio 1.3 1.0 - 2.5 g/dL 06/12/2023 3:43 [facility] Anion Gap 12 5 - 14 mmol/L 06/12/2023 3:43 [facility] Blood VENOUS BLOOD / Unknown Venipuncture / Unknown 06/12/2023 3:21 EDT 06/12/2023 3:24 EDT us Aislinn Pitts MD CHEMISTRY & BLOOD GAS ORDERABLES Final Result [facility] [address] [place] [address] * (ABNORMAL) COMPLETE BLOOD COUNT AND DIFFERENTIAL (06/12/2023 3:21 EDT) WBC 16.49(H) 4.00 - 12.40 K/cmm 06/12/2023 3:26 [facility] RBC 5.15(H) 3.86 - 5.04 M/cmm 06/12/2023 3:26 [facility] Hemoglobin 14.3 11.6 - 15.2 g/dL 06/12/2023 3:26 [facility] HCT 42.9 34.9 - 44.4 % 06/12/2023 3:26 [facility] MCV 83 81 - 98 fL 06/12/2023 3:26 [facility] MCH 27.8 26.7 - 33.3 pg 06/12/2023 3:26 [facility] MCHC 33.3 32.1 - 35.9 g/dL 06/12/2023 3:26 [facility] RDW-CV 12.9 <14.7 % 06/12/2023 3:26 [facility] RDW-SD 38.8 <50.4 fl 06/12/2023 3:26 [facility] PLT 315 141 - 377 K/cmm 06/12/2023 3:26 [facility] MPV 9.7 9.5 - 12.7 fL 06/12/2023 3:26 [facility] % Neutrophils 82.4 % 06/12/2023 3:26 [facility] % Lymphocytes 10.1 % 06/12/2023 3:26 [facility] % Monocytes 6.1 % 06/12/2023 3:26 [facility] % Eosinophils 0.4 % 06/12/2023 3:26 [facility] % Basophils 0.5 % 06/12/2023 3:26 [facility] % Immature Grans 0.5 % 06/12/20 3:26 [facility] Absolute Neutrophils 13.59(H) 2.20 - 8.85 K/cmm 06/12/2023 3:26 [facility] Absolute Lymphocytes 1.66 1.09 - 3.30 K/cmm 06/12/2023 3:26 EDT [facility] Absolute Monocytes 1.01(H) 0.10 - 0.80 K/cmm 06/12/2023 3:26 EDT [facility] Absolute Eosinophils 0.06 0.03 - 0.61 K/cmm 06/12/2023 3:26 EDT [facility] ABS Basophils 0.08 0.01 - 0.11 K/cmm 06/12/2023 3:26 [facility] Absolute Immature Grans 0.09(H) 0.00 - 0.06 K/cmm 06/12/2023 3:26 [facility] Type of Differential: Auto 06/12/2023 3:26 [facility] Blood VENOUS BLOOD / Unknown Venipuncture / Unknown 06/12/2023 3:21 EDT 06/12/2023 3:24 EDT us Aislinn Pitts MD PACKAGES & DNA PROBE O RDERABLES Final Result [facility] [address] [place] [address] documented in this encounter Visit Diagnoses Diagnosis 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 Epigastric pain Abdominal pain, epigastric documented in this encounter Administered Medications Inactive Administered Medications - up to 3 most recent administrations Medication Order MAR Action Action Date Dose Rate Site droPERidol (INAPSINE) injection 1.25 mg 1.25 mg, intravenous, NOW X1, 1 dose, On Fri06/12/23 at 0500, STAT Given 06/12/2023 4:35 EDT 1.25 mg iohexoL (OMNIPAQUE 350) solution 100 mL 100 mL, intravenous, Once in imaging, 1 dose, Starting on Fri06/12/23 at 0440, Until Fri06/12/23 at 0459, Routine Given 06/12/2023 4:59 EDT 100 mL ondansetron (PF) (ZOFRAN) injection 4 mg 4 mg, intravenous, NOW X1, 1 dose, On Fri06/12/23 at 0345, STAT Given 06/12/2023 3:34 EDT 4 mg ondansetron (PF) (ZOFRAN) injection 4 mg 4 mg, intravenous, NOW X1, 1 dose, On Darlene 06/12/23 at 0745, STAT Given 06/12/2023 7:23 EDT 4 mg ondansetron 4 mg ODT tab STARTER PACK 1 Package, oral, Once (Without Time Specified), 1 dose, Starting on Darlene 06/12/23 at 0719, Until Darlene 06/12/23 at 0722, STAT Given 06/12/2023 7:22 EDT 1 Package sodium chloride 0.9 % BOLUS 1,000 mL 1,000 mL, intravenous, NOW X1, 1 dose, On Darlene 06/12/23 at 0345, STAT New Bag 06/12/2023 3:33 EDT 1,000 mL documented in this encounter Historical Medications * This list may reflect changes made after this encounter. methylphenidate HCl (RITALIN;METHYLIN ) 5 mg tablet Take 2 Tablets by mouth daily. Patient reports 20mg added in this encounter Active and Recently Administered Medications Times are shown in EDT. Scheduled Medication Order 06/10/2023 06/11/2023 06/12/2023 droPERidol (INAPSINE) injection 1.25 mg (COMPLETED) 1.25 mg, intravenous, NOW X1, 1 dose, On Darlene 06/12/23 at 0500, STAT 0435 (Given - Provid er: Jessica Wing RN) iohexoL (OMNIPAQUE 350) solution 100 mL (COMPLETED) 100 mL, intravenous, Once in imaging, 1 dose, Starting on Darlene 06/12/23 at 0440, Until Darlene 06/12/23 at 0459, Routine 0459 (Given - Provid er: Ric Pond) ondansetron (PF) (ZOFRAN) injection 4 mg (COMPLETED) 4 mg, intravenous, NOW X1, 1 dose, On Darlene 06/12/23 at 0345, STAT 0334 (Given - Provid er: Jemima Sena RN) ondansetron (PF) (ZOFRAN) injection 4 mg (COMPLETED) 4 mg, intravenous, NOW X1, 1 dose, On Darlene 06/12/23 at 0745, STAT 0723 (Given - Provid er: Marcie Downey, TANIA) ondansetron 4 mg ODT tab STARTER PACK (COMPLETED) 1 Package, oral, Once (Without Time Specified), 1 dose, Starting on Darlene 06/12/23 at 0719, Until Darlene 06/12/23 at 0722, STAT 0722 (Given - Provid er: Marcie Downey RN) sodium chloride 0.9 % BOLUS 1,000 mL (COMPLETED) 1,000 mL, intravenous, NOW X1, 1 dose, On Darlene 06/12/23 at 0345, STAT 0333 (New Bag - Prov ider: Jemima Sena, TANIA)0535 (IV Stopped - Provider: Jessica Wing RN) documented in this encounter Care Teams Electric Meter Repairer Apprentice Relationship Specialty Start Date End Date Livier Valdez, FLOOR INSPECTOR [address] [place] [address] PCP - General Family Medicine - Primary Care 10/28/22 Mary Montana MD [address] [place] [address] 03/25/19 documented as of this encounter
--- OUTSIDE RECORDS SUMMARY | 2024-09-15 00:26 | XMS_ITS | Encounter Summary ---
Author Organization [facility] Address [address] [place] [address] Care Team Providers Care Chainstitch Binder Name Role Phone Mary Montana MD Unavailable Livier Valdez NP Primary Care Provider Reason for Referral * Radiology Services (Routine/Next Available) - Authorization Not Required Specialty Diagnoses / Procedures Referred By Contac t Referred To Contact Diagnoses Lumbar radiculopathy Procedures XR LUMBAR SPINE 4+ VIEWS Lynda Wolfe PA-C Phone: tel: fax: [facility] Referral ID Status Reason Start Date Expiration Date Visits Requested Visits Authorized [id number] Authorization Not Required 03/14/2023 1 1 * Radiology Services (Routine/Next Available) - Closed Specialty Diagnoses / Procedures Referred By Contac t Referred To Contact Radiology Diagnoses Lumbar radiculopathy Procedures MR LUMBAR SPINE WO CONTRAST Lynda Wolfe PA-C Phone: tel: fax: [facility] Referral ID Status Reason Start Date Expiration Date Visits Re quested Visits Authorized [id number] Closed 03/14/2023 1 1 Reason for Visit * Reason Onset Date Comments Back Pain 03/13/2023 Encounter Details Date Type Department Care Team (Late st Contact Info) Description 03/13/2023 Telephone [facility] - [facility] Orthopedics & Sport Medicine [address] [place], [place] [id number] Lynda Wlofe PA-C [address] [place] [address] Back Pain Social History Tobacco Use Types Packs/Day Years [...] encounter Miscellaneous Notes * Telephone Encounter - Judy Valdez - 03/13/2023 1210 EDT Calling in and LVM on machine at 10:10 am I called her back and had to LVM. I informed her on the msg that I would make a TE. Patient stated on the machine that she had her injection about a couple months ago and she is having pain now. She stated she was not doing well. Please call to discuss. Thanks documented in this encounter Plan of Treatment [...] could be further evaluated with pelvic ultrasound. [id number] Narrative 03/30/2023 21:37 EDT INDICATION: lumbar radiculopathy; [...] This could be furtherevaluated with pelvic ultrasound. [id number] us Lynda Wolfe PA-C [facility] ORDERABLES Final Res ult * XR LUMBAR SPINE 4+ VIEWS (03/21/2023 13:19 EDT) Anatomical Region Laterality Modality Computed Radiogr aphy 03/21/2023 13:2 3 EDT Impressions 03/21/2023 13:23 EDT Mild degenerative spondylosis [id number] Narrative 03/21/2023 13:23 EDT INDICATION: lumbar radiculopathy;M54.16:Lumbar [...] arthrosis is present. IMPRESSION Mild degenerative spondylosis [id number] Lynda Wolfe PA-C [facility]IC [facility] ORDER BETTINA Final Result documented in this encounter Visit Diagnoses Diagnosis Lumbar radiculopathy- Primary Thoracic or lumbosacral neuritis or radiculitis, unspecified Lumbar radiculopathy Thoracic or lumbosacral neuritis or radiculitis, unspecified documented in this encounter Care Teams Chainstitch Binder Relationship Specialty Start Date End Date Livier Valdez, MARLINE [address] [place] [phone] PCP - General Family Medicine - Primary Care 10/28/22 Mary Montana MD [address] [place] [phone] 03/25/19 documented as of this encounter
--- OUTSIDE RECORDS SUMMARY | 2024-09-15 00:27 | XMS_ITS | Encounter Summary ---
Author Organization [facility] Address [address] [place] [address] Care Team Providers Care Client Solutions Director Name Role Phone Mary Montana MD Unavailable Mary Montana MD Primary Care Provider [phone] Livier Valdez NP Primary Care Provider [phone] Encounter Details Date Type Department Care Team (Late st Contact Info) Description 10/03/2021 Community Orders [facility] [address] [place], [place] [phone] La Mejia PA [address] [place], [place] [phone] Herpes zoster oticus (Primary Dx) Social History Tobacco Use Types [...] Procedure Name Priority Date/Time Associated Diagnosis Comments HERPES SIMPLEX VIRUS (HSV) TYPE 1 & 2 AB, IGG Routine 10/03/2021 15:55 EST Herpes zoster oticus HIV 1/2 ANTIGEN AND ANTIBODY, 4TH GENERATION Routine 10/03/2021 15:55 EST Herpes zoster oticus documented in this encounter Results * HIV 1/2 ANTIGEN AND ANTIBODY, 4TH GENERATION (10/03/2021 15:55 EST) HIV 1 and 2 Antibody/p24 Antigen, 4th Generation Negative Negative 10/03/2021 18:57 EST [facility] Comment:If acute HIV-1 infec tion is suspected in a high risk patient, submit plasma specimen for HIV-1 RNA quantitation test. Blood VENOUS BLOOD / Unknown Venipuncture / Unknown 10/03/2021 15:55 EST 10/03/2021 17:51 EST us [facility] ORDER BETTINA Final Result [facility] [address] [place] [address] * (ABNORMAL) HERPES SIMPLEX VIRUS (HSV) TYPE 1 & 2 AB, IGG (10/03/2021 15:55 EST) HSV Type 1 Ab, IgG Positive( A) Negative 10/04/2021 11:27 EST [facility] Comment:Indicates the presen ce of detectable IGG Antibody to HSV1 HSV Type 2 Ab, IgG Positive( A) Negative 10/04/2021 11:27 EST [facility] Comment:Indicates the presen ce of detectable IGG antibody to HSV 2 Blood VENOUS BLOOD / Unknown Venipuncture / Unknown 10/03/2021 15:55 EST 10/03/2021 17:51 EST [facility] ORDER BETTINA Final Result [facility] [address] [place] [address] documented in this encounter Visit Diagnoses Diagnosis Herpes zoster oticus- Primary Otitis externa due to herpes zoster documented in this encounter Additional Health Concerns Infection Onset Date Last Indicated Resolved Time R/O COVID-19 04/16/2023 04/16/2023 04/16/2023 23:3 7 EDT COVID-19 04/16/2023 04/16/2023 05/06/2023 22:1 5 EDT documented as of this encounter Care Teams Client Solutions Director Relationship Specialty Start Date End Date Mary Montana MD [address] [place] [phone] PCP - General 04/05/19 10/27/22 Livier Valdez NP [address] [place] [phone] PCP - General Family Medicine - Primary Care 10/28/22 Mary Montana MD [address] [place] [phone] 03/25/19 documented as of this encounter
--- OUTSIDE RECORDS SUMMARY | 2024-09-15 00:27 | XMS_ITS | Encounter Summary ---
Author Organization [facility] Address [address] [place] [address] Care Team Providers Care Community Relations Police Lieutenant Name Role Phone Mary Montana MD Unavailable Mary Montana MD Primary Care Provider [phone] Encounter Details Date Type Department Care Team (Latest Contact Info) Description 04/23/2022 0:15 EDT - 04/23/2022 23:[address] [facility] - Main [place] [address] [place], [place] [address] [facility] Discharge Disposition: Home or Self Care [...] 14:18 EDT documented in this encounter Discharge Disposition Disposition Code Departure Means Destination Home or Self Care documented in this encounter Plan of Treatment Not on file documented as of this encounter Visit Diagnoses Not on filedocumented in this encounter Care Teams Community Relations Police Lieutenant Relationship Specialty Start Date End Date Mary Montana MD [address] [place] [phone] PCP - General 04/05/19 10/27/22 Mary Montana MD [address] [place] [address] 03/25/19 documented as of this encounter
--- OUTSIDE RECORDS SUMMARY | 2024-09-15 00:27 | XMS_ITS | Encounter Summary ---
Author Organization [facility] Address [address] [place] [address] Care Team Providers Care Weather Analyst Name Role Phone Mary Montana MD Unavailable Mary Montana MD Primary Care Provider [phone] Encounter Details Date Type Department Care Team (Late st Contact Info) Description 01/13/2021 Results Only [facility] - Main [address] [id number] Beau Campa MD [address] [place] [phone] Social History Tobacco Use Types Packs/Day Years [...] Procedure Name Priority Date/Time Associated Diagnosis Comments COVID-19 TESTING Routine 01/13/2021 10:1 0 EDT documented in this encounter Results * COVID-19 TESTING (01/13/2021 10:10 EDT) Performing Lab [facility] 01/15/2021 0:29 EDT [facility] Comment: Please indicate the Triage Tier2 Test performed or referred by The [address] [address] COVID-19 rt-PCR Result Not Detected Negative 01/15/2021 0:29 EDT [facility] Comment: This test has not been FDA cleared or approved. This test has been authorized by FDA under an EUA for use by authorized laboratories. This test has been authorized only for detection of nucleic acid from 2019-nCoV, not for any other viruses or pathogens. This test is only authorized for the duration of the declaration that circumstances exist justifying the authorization of emergency use of in vitro diagnostic tests for detection and/or diagnosis of 2019-nCoV under section 564(b)(1) of Act, 21 U.S.C ? 360bbb-3(b) (1), unless the authorization is terminated or revoked sooner. Negative results do not preclude 2019-nCoV infection and should not be used as the sole basis for treatment or other patient management decisions. Negative results must be combined with clinical observations, patient history, and epidemiological information. This test was developed and its performance characteristics determined by [facility]. It has not been cleared or approved by the US Food and Drug Administration. FDA does not require this test to go through premarket FDA review. This test is used for clinical purposes. It should not be regarded as investigational or for research. This laboratory is certified under the Clinical Laboratory Improvement Amendments (CLIA) as qualified to perform high complexity clinical laboratory testing. This test is based on the CDC COVID-19 Emergency Use Authorization (EUA) assay, with minor modification as defined by the FDA Performed on the [employer] Pro RT-PCR System. 01/13/2021 10:1 0 EDT 01/13/2021 10:10 EDT Narrative [facility] - 01/15/2021 0:29 EDT Does PT Have a Latex Allergy? NO PATIENT STATUS PLACE REASON IN COMMENTS COMMENTS ? ASYMPTOMATIC PT WITH UPCOMING PROCEDURE ON 01/16/21 us Beau Campa MD MICROBIOLOGY - GENERAL ORDERABLE S Final Result Performing Organization Address City/State/[facility] de Phone Number [facility] [address] [place] [address] documented in this encounter Visit Diagnoses Not on filedocumented in this encounter Care Teams Weather Analyst Relationship Specialty Start Date End Date Mary Montana MD [address] [place] [phone] PCP - General 04/05/19 10/27/22 Mary Montana MD [address] [place] [phone] 03/25/19 documented as of this encounter
--- OUTSIDE RECORDS SUMMARY | 2024-09-15 00:27 | XMS_ITS | Encounter Summary ---
Author Organization [facility] Address [address] [place] [address] Care Team Providers Care Industrial Recruiter Name Role Phone Mary Montana MD Unavailable Mary Montana MD Primary Care Provider [phone] Livier Valdez NP Primary Care Provider [phone] Encounter Details Date Type Department Care Team (Late st Contact Info) Description 04/24/2022 Orders Only [facility] [address] [place], [place] [phone] Livier Valdez, TRACKLESS TROLLEY DRIVER [address] [place], [place] [phone] Screening examination for venereal disease Social History Tobacco Use Types Packs/Day [...] Procedure Name Priority Date/Time Associated Diagnosis Comments TRICHOMONAS VAGINALIS PCR - [facility] Routine 04/23/2022 15:16 EDT Screening examination for venereal disease CHLAMYDIA/N. GONORRHOEAE AMPLIFIED NUCLEIC ACID Routine 04/23/2022 15:16 EDT Screening examination for venereal disease documented in this encounter Results * CHLAMYDIA/N. GONORRHOEAE AMPLIFIED RNA (04/23/2022 15:16 EDT) Neisseria gonorrhoeae Result Negative Negative 04/24/2022 22:15 EDT [facility] Chlamydia trachomatis Result Negative Negative 04/24/2022 22:15 EDT [facility] Swab ENTIRE WALL OF CERVIX / Unknown Swab / Unknown 04/23/2022 15:16 EDT 04/24/2022 16:00 EDT Narrative [facility] - 04/24/2022 22:15 EDT ? ? Xpert CT/NG Assay performance has not been evaluated in patients less than 14 years of age. ? ? Xpert CT/NG Assay performance has not been evaluated in women, or in patients with a history of hysterectomy. us Livier Valdez NP MICROBIOLOGY - GENERAL ORDERABLE S Final Result [facility] [address] [place] [address] * TRICHOMONAS VAGINALIS PCR - [facility] (04/23/2022 15:16 EDT) Trichomonas Vaginalis, PCR Not Detected Not Detected 04/24/2022 22:01 EDT [facility] Comment:Xpert TV assay perfo rmance has not been evaluated in women or in patients with a history of hysterectomy. Swab ENTIRE VAGINA / Unknown Swab / Unknown 04/23/2022 15:16 EDT 04/24/2022 16:00 EDT us Livier Valdez TRACKLESS TROLLEY DRIVER MICROBIOLOGY - GENERAL ORDERABLE S Final Result [facility] [address] [place] [address] documented in this encounter Visit Diagnoses Diagnosis Screening examination for venereal disease documented in this encounter Additional Health Concerns Infection Onset Date Last Indicated Resolved Time R/O COVID-19 04/16/2023 04/16/2023 04/16/2023 23:3 7 EDT COVID-19 04/16/2023 04/16/2023 05/06/2023 22:1 5 EDT documented as of this encounter Care Teams Industrial Recruiter Relationship Specialty Start Date End Date Mary Montana MD [address] [place] [phone] PCP - General 04/05/19 10/27/22 Livier Valdez TRACKLESS TROLLEY DRIVER [address] [place] [phone] PCP - General Family Medicine - Primary Care 10/28/22 Mary Montana MD [address] [place] [phone] 03/25/19 documented as of this encounter
--- OUTSIDE RECORDS SUMMARY | 2024-09-15 00:27 | XMS_ITS | Encounter Summary ---
Author Organization [facility] Address [address] [place] [address] Care Team Providers Care Construction Site Crossing Guard Name Role Phone Mary Montana MD Unavailable Mary Montana MD Primary Care Provider [phone] Reason for Referral * Radiology Services (STAT) - Closed Specialty Diagnoses / Procedures [facility] Referred To Contact Diagnoses Hemorrhagic cyst of left ovary Procedures US PELVIS TRANSVAGINAL W DOPPLER US PELVIS TRANSABDOMINAL AND TRANSVAGINAL W DOPPLER US PELVIS TRANSABDOMINAL AND TRANSVAGINAL W DOPPLER Brett Sellers PA-C Phone: tel: fax: Referral ID Status Reason Start Date Expiration Date Visits Re quested Visits Authorized [id number] Closed 08/05/2021 1 1 Reason for Visit * Reason Comments Abdominal Pain rt lower back/flank pain for nine days, [facility] in from [facility] to [facility]/o kidney stone Encounter Details Date Type Department Care Team (Late st Contact Info) Description 08/05/2021 10:25 EST - 08/05/2021 13:03 EST Emergency [facility] Emergency Department [address], [place] [id number] Brett Sellers PA-C [address] [place] [address] Adnexal cyst (Primary Dx); Hemorrhagic cyst of left ovary Discharge Disposition: Home or Self Care Social [...] Sign Reading Time Taken Comments Blood Pressure 130/91 08/05/2021 1259 EST Pulse 86 08/05/2021 1023 EST Temperature 37.1 ??C (98.7 ??F) 08/05/2021 1023 EST Respiratory Rate 20 08/05/2021 1023 EST Oxygen Saturation 99% 08/05/2021 1258 EST Inhaled Oxygen Concentration - - Weight [...] this encounter Discharge Instructions * Discharge Instructions* Brett Sellers PA-C - 08/05/2021 12:52 EST You were seen today for right flank pain. Your CT scan shows no evidence of kidney stones. There is evidence of a left adnexal cyst. We are recommending an outpatient ultrasound to be scheduled for tomorrow or at your convenience. Follow-up as scheduled. Return to the ED with any worsening symptoms such as unrelenting vomiting, vaginal bleeding, worsening pain. * Attachments The following attachments cannot be sent through Care Everywhere. * Ovarian Cyst: Hemorrhagic (German) documented in this encounter Medications at Time of Discharge cholecalciferol, Vitamin D3, 1,000 unit tablet Take 1,000 Units by mouth daily. 03/13/2022 ibuprofen (ADVIL) 200 mg tablet Take 400 mg by mouth every 6 hours as needed for Pain. 03/13/2022 documented as of this encounter Discharge Disposition Disposition Code Departure Means Destination Home or Self Senior Living documented in this encounter ED Notes * Brett Sellers PA-C - 08/05/2021 1250 EST This patient received an evaluation and medical screening exam for emergent medical conditions at [facility] Emergency Department on 08/05/2021 History of Present Illness HPI Jonathon Hall is a 36 y.o. female presents with complaint of right lower back pain, flank pain ongoing for the past 9 days. She describes pain rating from her right lower back to her right groin. Denies any fevers, chills, night sweats. She was seen at [facility] and referred to the ED to rule out kidney stone. Denies any prior history of kidney stones. She has been using ibuprofen without much relief. Data Reviewed this visit Allergies Allergen Reactions ??? Amantadine Other reaction(s): rash and fever ??? Amitriptyline Other reaction(s): drowsiness ??? Penicillin Other reaction(s): hives/fever No current facility-administered medications for this encounter. Current Outpatient Medications Medication Sig Dispense Refill ??? cholecalciferol, Vitamin D3, 1,000 unit tablet Take 1,000 Units by mouth daily. ??? ibuprofen (ADVIL) 200 mg tablet Take 400 mg by mouth every 6 hours as needed for Pain. Review of Symptoms Review of Systems Constitutional: Negative for fever. Gastrointestinal: Negative for abdominal pain, nausea and vomiting. Genitourinary: Positive for flank pain (Right sided). Negative for dysuria, frequency, hematuria and urgency. All other systems reviewed and are negative. A 10-point review of systems was performed. The historian answered negative to all questions with the exceptions of those explicitly detailed as positives in the HPI. Pertinent negatives are also explicitly stated. Physical Exam Vital Signs Vital Signs Vitals Reassessment?: Yes Temp: 37.1 ??C (98.7 ??F) Temp src: Oral Pulse: 86 Resp: 20 SpO2: 99 % Pulse From Oximetry: 61 BPM BP: (!) 130/91 BP MAP: 104 mm Hg O2 Device: None (Room air) Nursing notes and vital signs were reviewed. Physical Exam Vitals and nursing note reviewed. Constitutional: General: She is not in acute distress. Appearance: Normal appearance. HENT: Head: Normocephalic and atraumatic. Right Ear: [...] normal. Breath sounds: Normal breath sounds. Abdominal: General: Bowel sounds are normal. Palpations: Abdomen is soft. There is no mass. Tenderness: There is abdominal tenderness in the right lower quadrant. There is right CVA tenderness. There is no left CVA tenderness. Musculoskeletal: General: No swelling or deformity. Normal range of motion. Cervical back: Normal range of motion and neck supple. Skin: General: Skin is warm and dry. Neurological: General: No focal deficit present. Mental Status: She is alert and oriented to person, place, and time. Psychiatric: Mood and Affect: Mood normal. Behavior: Behavior normal. Medical Decision Making MDM Procedures Procedures Data Interpretation/Results Laboratory results independently reviewed, significant for: Labs Reviewed - No data to display Imaging obtained was reviewed and independently interpreted: CT RENAL STONE Final Result 1. No hydronephrosis or renal or ureteral calculus. 2. Apparent left adnexal cyst measuring up to 3.7 cm. Consider ultrasound. 3. Fatty liver. 4. Minor sigmoid colonic diverticulosis without evidence for diverticulitis. 5. Small fat containing umbilical hernia. COMMENTS: Depending on suspected etiology of symptoms, consider a targeted ultrasound or contrast enhanced exam. THIS DOCUMENT HAS BEEN ELECTRONICALLY SIGNED BY ELIAS NICOLE MD FOR ANY QUESTIONS OR CONCERNS REGARDING THIS REPORT PLEASE CALL [facility] AT [phone] US PELVIS TRANSABDOMINAL AND TRANSVAGINAL W DOPPLER (Results Pending) ED course Final diagnoses: Adnexal cyst Jonathon Hall is a 36 y.o. female presents with complaint of right lower back pain, flank pain ongoing for the past 9 days. She describes pain rating from her right lower back to her right groin. Denies any fevers, chills, night sweats. She was seen at [facility] and referred to the ED to rule out kidney stone. Denies any prior history of kidney stones. She has been using ibuprofen without much relief. On exam she is well-appearing and in mild distress. Does not appear uncomfortable. Does have right-sided CVA tenderness. Mild right lower quadrant tenderness to palpation. Urine shows 2+ blood from her [facility] dip. A CT renal colic study was obtained which shows no acute obstructing renal calculi. A left adnexal cyst was appreciated on CT. Given patient's clinical state of no distress and normalvital signs, a post ED ultrasound transabdominal Doppler was ordered for tomorrow. She was encouraged to return to the ED should her symptoms worsen or develop any fevers, vomiting or worsening pain. Disposition Disposition decisions were made weighing risks and benefits of hospitalization vs. outpatient treatment, the risk for further decompensation, and the patient???s wishes. - If discharged: the patient was stable, improved, or requested discharge. Prior to discharge my usual and customary return precautions were reviewed with the patient and/or family. This included follow-up instructions and reasons to return to the Emergency Department if condition worsens, does notimprove as expected, or other new concerns arise. - If admitted: the patient???s condition was severe enough to require additional inpatient evaluation and treatment, or the patient was at risk of sudden decompensation. * Kerrie Westfall LPN - 08/05/2021 1121 EST Pt ambulated to restroom, reports tolerating walking better and now able to accept weight on Right leg/foot. Pt provided urine sample * Kerrie Westfall LPN - 08/05/2021 1052 EST Ice water provided, provider ok * Kerrie Westfall LPN - 08/05/2021 1034 EST Pt states she is unable to provide urine sample as she just gave one at urgent care. * Kerrie Westfall LPN - 08/05/2021 1030 EST Pt reports Urgent Care told her she may have a kidney stone and sent her here. Pt able to ambulate though states it's painful. Pt c/o right flank pain that radiates into her groin. documented in this encounter Plan of Treatment Not on file documented as of this encounter Procedures Procedure Name Priority Date/Time Associated Diagnosis Comments US PELVIS TRANSVAGINAL COMPLETE WITH LIMITED DUPLEX STAT 08/06/2021 14:32 EST Hemorrhagic cyst of left ovary CT RENAL STONE STAT 08/05/2021 11:10 EST documented in this encounter Results * US PELVIS TRANSVAGINAL W DOPPLER (08/06/2021 14:32 EST) Anatomical Region Laterality Modality Pelvis Ultrasound 08/06/2021 14:4 7 EST Impressions 08/06/2021 14:47 EST 1. Left ovarian cyst measuring 3.5 cm x 2.0 cm x 2.7 cm. 2. IUD within the endometrial cavity of the uterine fundus. Narrative 08/06/2021 14:47 EST INDICATION: rule out hemorrhagic cyst. COMPARISON: Pelvic ultrasound 07/17/2018. DOPPLER: TECHNIQUE: Color and spectral Doppler imaging of the ovaries was performed. FINDINGS: RIGHT OVARY: ??Arterial and venous Doppler waveforms and color flow are present. LEFT OVARY: Arterial and venous Doppler waveforms and color flow are present. GRAYSCALE: TECHNIQUE: Endovaginal grayscale ultrasound of the pelvis was performed. FINDINGS: UTERUS: Uterus is retroverted but normal in size, shape and echotexture. The uterus measures 8.8 cm x 4.4 cm x 5.8 cm. No intramural mass. Endometrial stripe measures 5.7 mm. There is an echogenic IUD within the endometrial cavity of the uterine fundus. RIGHT OVARY: The right ovary has a normal appearance and contains a few tiny follicles. LEFT OVARY: There is a simple appearing cyst measuring 3.5 cm x 2.0 cm x 2.7 cm corresponding to the findings seen on previous CT scan. PERITONEAL CAVITY: No free peritoneal fluid is identified. Procedure Note Nikhil Yarbrough MD - 08/06/2021 INDICATION: rule out hemorrhagic cyst. COMPARISON: Pelvic ultrasound 07/17/2018. DOPPLER: TECHNIQUE: Color and spectral Doppler imaging of the ovaries wasperformed. FINDINGS: RIGHT OVARY: Arterial and venous Doppler waveforms and color flow arepresent. LEFT OVARY: Arterial and venous Doppler waveforms and color flow arepresent. GRAYSCALE: TECHNIQUE: Endovaginal grayscale ultrasound of the pelvis was performed. FINDINGS: UTERUS: Uterus is retroverted but normal in size, shape and echotexture.The uterus measures 8.8 cm x 4.4 cm x 5.8 cm. No intramural mass.Endometrial stripe measures 5.7 mm. There is an echogenic IUD within theendometrial cavity of the uterine fundus. RIGHT OVARY: The right ovary has a normal appearance and contains a fewtiny follicles. LEFT OVARY: There is a simple appearing cyst measuring 3.5 cm x 2.0 cm x2.7 cm corresponding to the findings seen on previous CT scan. PERITONEAL CAVITY: No free peritoneal fluid is identified. IMPRESSION 1. Left ovarian cyst measuring 3.5 cm x 2.0 cm x 2.7 cm. 2. IUD within the endometrial cavity of the uterine fundus. us Brett Sellers PA-C IMG US ORDERABLES Final Result * CT RENAL STONE (08/05/2021 11:10 EST) Anatomical Region Laterality Modality Body, Abdomen Computed Tomogra phy 08/05/2021 11:0 5 EST Impressions 08/05/2021 11:57 EST 1. No hydronephrosis or renal or ureteral calculus. 2. Apparent left adnexal cyst measuring up to 3.7 cm. Consider ultrasound. 3. Fatty liver. 4. Minor sigmoid colonic diverticulosis without evidence for diverticulitis. 5. Small fat containing umbilical hernia. COMMENTS: Depending on suspected etiology of symptoms, consider a targeted ultrasound or contrast enhanced exam. THIS DOCUMENT HAS BEEN ELECTRONICALLY SIGNED BY ELIAS NICOLE MD FOR ANY QUESTIONS OR CONCERNS REGARDING THIS REPORT PLEASE CALL [facility] AT [phone] Narrative 08/05/2021 11:57 EST PROCEDURE INFORMATION: Exam: CT Abdomen And Pelvis Without Contrast Exam date and time: 08/05/2021 11:05 AM Age: 36 years old Clinical indication: Other: Flank pain; Additional info: Flank pain, no prior imaging (ped 0-18y) TECHNIQUE: Imaging protocol: Computed tomography of the abdomen and pelvis without contrast. Radiation optimization: All CT scans at this facility use at least one of these dose optimization techniques: automated exposure control; mA and/or kV adjustment per patient size (includes targeted exams where dose is matched to clinical indication); or iterative reconstruction. COMPARISON: US RIGHT UPPER QUADRANT 12/13/2020 6:56 AM FINDINGS: Limitations: Evaluation of the solid and vascular structures is somewhat limited by lack of IV contrast. Tubes, catheters and devices: An intrauterine device is present. There are surgical clips in the right pelvis. Lungs: The visualized lung bases are essentially clear. Liver: The liver is fatty in density. It appears otherwise grossly unremarkable. Gallbladder and bile ducts: There has been interval cholecystectomy. Pancreas: Grossly unremarkable. Spleen: Grossly unremarkable. Adrenal glands: Grossly unremarkable. Kidneys and ureters: Grossly unremarkable. No hydronephrosis or renal or ureteral calculus. Stomach and bowel: The unopacified small bowel is not significantly distended to suggest obstruction. Minor sigmoid colonic diverticulosis without evidence for diverticulitis. Appendix: The appendix appears normal. Intraperitoneal space: No free air or significant free fluid. Vasculature: Unremarkable. No abdominal aortic aneurysm. Lymph nodes: No gross pathologic lymphadenopathy. Urinary bladder: Grossly unremarkable. Reproductive: There appears to be a left adnexal cyst measuring up to 3.7 cm. Bones/joints: Degenerative changes involve the spine and hips. Soft tissues: Right breast implant is partially included. Small fat containing umbilical hernia. Procedure Note Elias Nicole MD - 08/05/2021 PROCEDURE INFORMATION: Exam: CT Abdomen And Pelvis Without Contrast Exam date and time: 08/05/2021 11:05 AM Age: 36 years old Clinical indication: Other: Flank pain; Additional info: Flank pain, no prior imaging (ped 0-18y) TECHNIQUE: Imaging protocol: Computed tomography of the abdomen and pelvis without contrast. Radiation optimization: All CT scans at this facility use at least one of these dose optimization techniques: automated exposure control; mA and/or kV adjustment per patient size (includes targeted exams where dose is matched to clinical indication); or iterative reconstruction. COMPARISON: US RIGHT UPPER QUADRANT 12/13/2020 6:56 AM FINDINGS: Limitations: Evaluation of the solid and vascular structures is somewhat limited by lack of IV contrast. Tubes, catheters and devices: An intrauterine device is present. There are surgical clips in the right pelvis. Lungs: The visualized lung bases are essentially clear. Liver: The liver is fatty in density. It appears otherwise grossly unremarkable. Gallbladder and bile ducts: There has been interval cholecystectomy. Pancreas: Grossly unremarkable. Spleen: Grossly unremarkable. Adrenal glands: Grossly unremarkable. Kidneys and ureters: Grossly unremarkable. No hydronephrosis or renal or ureteral calculus. Stomach and bowel: The unopacified small bowel is not significantly distended to suggest obstruction. Minor sigmoid colonic diverticulosis without evidence for diverticulitis. Appendix: The appendix appears normal. Intraperitoneal space: No free air or significant free fluid. Vasculature: Unremarkable. No abdominal aortic aneurysm. Lymph nodes: No gross pathologic lymphadenopathy. Urinary bladder: Grossly unremarkable. Reproductive: There appears to be a left adnexal cyst measuring up to 3.7 cm. Bones/joints: Degenerative changes involve the spine and hips. Soft tissues: Right breast implant is partially included. Small fat containing umbilical hernia. IMPRESSION 1. No hydronephrosis or renal or ureteral calculus. 2. Apparent left adnexal cyst measuring up to 3.7 cm. Consider ultrasound. 3. Fatty liver. 4. Minor sigmoid colonic diverticulosis without evidence for diverticulitis. 5. Small fat containing umbilical hernia. COMMENTS: Depending on suspected etiology of symptoms, consider a targeted ultrasound or contrast enhanced exam. THIS DOCUMENT HAS BEEN ELECTRONICALLY SIGNED BY ELIAS NICOLE MD FOR ANY QUESTIONS OR CONCERNS REGARDING THIS REPORT PLEASE CALL [facility] [phone] Brett Sellers PA-C IMG CT ORDERABLES Final Result documented in this encounter Visit Diagnoses Diagnosis Adnexal cyst- Primary Other specified symptom associated with female genital organs Hemorrhagic cyst of left ovary documented in this encounter Administered Medications Inactive Administered Medications - up to 3 most recent administrations Medication Order MAR Action Action Date Dose Rate Site ketOROLAC (TORADOL) injection 30 mg 30 mg, intramuscular, NOW X1, 1 dose, On 08/05/21 at 1115, STAT Given 08/05/2021 10:58 EST 30 mg documented in this encounter Active and Recently Administered Medications Times are shown in EST. Scheduled Medication Order 08/03/2021 08/04/2021 08/05/2021 ketOROLAC (TORADOL) injection 30 mg (COMPLETED) 30 mg, intramuscular, NOW X1, 1 dose, On 08/05/21 at 1115, STAT 1058 (Given - Provid er: Kerrie Westfall LPN) documented in this encounter Orders Nursing Count Last Ordered Date First Orde red Date PAGE DI TECH-POST ED ULTRASOUND 1 1 PRINT POST ED ULTRASOUND ORD ER TO RADIOLOGY 1 08/05/2021 documented in this encounter Care Teams Construction [employer] Cross[employer] Guard Relationship Specialty Start Date End Date Mary Montana MD [address] [place] [address] PCP - General 04/05/19 10/27/22 Mary Montana MD [address] [place] [address] 03/25/19 documented as of this encounter
--- OUTSIDE RECORDS SUMMARY | 2024-09-15 00:27 | XMS_ITS | Encounter Summary ---
Author Organization [facility] Address [address] [place] [address] Care Team Providers Care Counter Hand Name Role Phone Mary Montana MD Unavailable Mary Montana MD Primary Care Provider [phone] Encounter Details Date Type Department Care Team (Late st Contact Info) Description 08/28/2022 Orders Only [facility] [place] [address] [place], [place] [id number] Ric Pond Social History Tobacco Use Types [...] on filedocumented in this encounter Care Teams Counter Hand Relationship Specialty Start Date End Date Mary Montana MD [address] [place] [address] PCP - General 04/05/19 10/27/22 Mary Montana MD [address] [place] [address] 03/25/19 documented as of this encounter
--- OUTSIDE RECORDS SUMMARY | 2024-09-15 00:27 | XMS_ITS | Encounter Summary ---
Author Organization [facility] Address [address] [place] [address] Care Team Providers Care Commodity Broker Name Role Phone Mary Montana MD Unavailable Mary Montana MD Primary Care Provider [phone] Reason for Visit * Reason Comments Abdominal Pain Encounter Details Date Type Department Care Team (Late st Contact Info) Description 08/01/2022 12:00 EST Walk-In [facility] [address] [place] [address] [phone] Radha Rolon, AARONC [address] [facility] [address] [place] [address] Lower abdominal pain (Primary Dx); Vaginal discharge Social History Tobacco Use Types Packs/Day Years [...] Sign Reading Time Taken Comments Blood Pressure 104/60 08/01/2022 1127 EST Pulse 81 08/01/2022 1127 EST Temperature 35.5 ??C (95.9 ??F) 08/01/2022 1127 EST Respiratory Rate 20 08/01/2022 1127 EST Oxygen Saturation 98% 08/01/2022 1127 EST Inhaled Oxygen Concentration - - Weight [...] this encounter Patient Instructions * Patient Instructions* Radha Rolon PA-C - 08/01/2022 12:00 EST Your urine was sent for culture. Your vaginal swab was sent for gonorrhea and chlamydia testing. I think we should wait to initiate therapy until we have those results. Push fluids and rest. Constipation treatment attached. * Attachments The following attachments cannot be sent through Care Everywhere. * Constipation (Persian) documented in this encounter Progress Notes * Hannah Parmar MA - 08/01/2022 1200 EST CC/HPI: Pt reports strong smelling urine, abdominal cramping, bloating x1 week. Covid Screening: In the last 72 hours, [...] RN or in discussion with available provider (MANAGER GARDEN's and CCA's can defer to Charge Nurse to complete triage when appropriate) PCP: Mary Montana * Radha Rolon PA-C - 08/01/2022 1200 EST [facility] Chief Complaint(s): Chief Complaint Patient presents with ??? Abdominal Pain Assessment & Plan: 1. Lower abdominal pain POCT URINE DIPSTICK, VISUAL READ POCT TEST, VISUAL READ BACTERIAL CULTURE, URINE CHLAMYDIA/N. GONORRHOEAE AMPLIFIED RNA 2. Vaginal discharge CHLAMYDIA/N. GONORRHOEAE AMPLIFIED RNA New Prescriptions No medications on file Results for orders placed or performed in visit on 08/01/22 POCT URINE DIPSTICK, VISUAL READ Result Value Ref Range Color, UA Dark Yellow Clarity, UA Clear Glucose, UA Negative . mg/dL Bilirubin, UA Negative Negative Ketones, UA Negative . mg/dL Spec Grav, UA >1.030 (A) 1.005 - 1.030 Blood, UA Trace (A) Negative pH, UA 6.0 4.6 - 8.0 Protein, UA 30 mg/dL . mg/dL Urobilinogen, UA 0.2 0.2 - 1.0 E.U./dL Nitrite, UA Negative . Leuk Esterase 1+ (A) Negative Comment POCT TEST, VISUAL READ Result Value Ref Range Test, Urine, POC Negative Negative Control Line Present Yes Background Clear? Yes This patient presents with concern for lower abdominal discomfort, change in vaginal discharge, urinary symptoms. Her urine dip has very minimal changes. She is also concerned for STDs. I opted to swab for gonorrhea and chlamydia and send urine for culture and wait for results prior to initiating treatment. Furthermore patient admits to constipation which could also be related to her bloating andcramping. She was educated on ways to alleviate constipation. Patient will follow up with any concern for acute worsening abdominal pain, vomiting, fevers. HPI: This patient presents with her daughter who is also being seen by the same clinician. Patient reports 1 week of strong urine odor, abdominal cramping, abdominal bloating. Patient notes she also has athick white vaginal discharge. She does have some discomfort with urination. She denies urgency or frequency. She reports she has been constipated. She also notes that she has had a new sexual partner so is unsure of exposure to STDs. She denies fevers. The history is provided by the patient. ROS: Review of Systems Constitutional: Negative for fever. HENT: Negative for sore throat. Respiratory: Negative for cough and shortness of breath. Musculoskeletal: Negative for myalgias. Neurological: No change in taste or sense of smell Objective: Vitals and nursing notes reviewed Examination: BP 104/60 Pulse 81 Temp (!) 35.5 ??C (95.9 ??F) (Temporal) Resp 20 SpO2 98% Physical Exam Constitutional: General: She is not in acute distress. Appearance: Normal appearance. Genitourinary: Comments: Vaginal exam deferred as patient has teenage daughter and 2-year-old son with her. She opted to do a vaginal self swab for gonorrhea and chlamydia. Skin: General: Skin is warm and dry. Neurological: Mental Status: She is alert. Gait: Gait normal. An appropriate medical screening examination was performed. The patient was assessed prior to discharge and deemed stable for discharge home. This note may be in part documented using voice dictation software. Please forgive any errors or omissions that may result from use of dictation. documented in this encounter Plan of Treatment Not on file documented as of this encounter Procedures Procedure Name Priority Date/Time Associated Diagnosis Comments CHLAMYDIA/N. GONORRHOEAE AMPLIFIED NUCLEIC ACID Routine 08/01/2022 12:41 EST Lower abdominal pain Vaginal discharge BACTERIAL CULTURE, URINE Routine 08/01/2022 12:10 EST Lower abdominal pain POCT TEST, VISUAL READ Routine 08/01/2022 11:38 EST Lower abdominal pain POCT URINE DIPSTICK, VISUAL READ Routine 08/01/2022 11:37 EST Lower abdominal pain documented in this encounter Results * CHLAMYDIA/N. GONORRHOEAE AMPLIFIED RNA (08/01/2022 12:41 EST) Neisseria gonorrhoeae Result Negative Negative 08/01/2022 21:38 EST [facility] Chlamydia trachomatis Result Negative Negative 08/01/2022 21:38 EST [facility] Swab ENTIRE VAGINA / Unknown Swab / Unknown 08/01/2022 12:41 EST 08/01/2022 12:41 EST Narrative [facility] - 08/01/2022 21:38 EST ? ? Xpert CT/NG Assay performance has not been evaluated in patients less than 14 years of age. ? ? Xpert CT/NG Assay performance has not been evaluated in women, or in patients with a history of hysterectomy. Radha Rolon PA-C MICROBIOLOGY - GENERAL ORDERABLES Final Result Performing Organization Address City/[facility]/ZIP Co de Phone Number [facility] [address] [place] [address] * BACTERIAL CULTURE, URINE (08/01/2022 12:10 EST) [facility] Organism ID 10, 000 to 100,000 CFU/ml VITEK SUSCEPTIBILITY 08/03/2022 11:18 EST [facility] Comment: Usual urogenital kishor. Urine URINE SPECIMEN COLLECTION, CLEAN CATCH / Unknown Urine Collect / Unknown 08/01/2022 12:10 EST 08/01/2022 12:10 EST Radha Rolon PA-C MICROBIOLOGY - GENERAL ORDERABLES Final Result Performing Organization Address City/[facility]/ZIP Co de Phone Number [facility] [address] [place] [address] * POCT TEST, VISUAL READ (08/01/2022 11:38 EST) Pathologist [facility] Test, Urine, POC Negative Negative [facility] Control Line Present Yes [facility] Background Clear? Yes [facility] Urine URINE / Unknown 08/01/2022 1 1:38 EST Radha Aguirre Gonzales MARTINS-C POINT OF CARE TEST ORDE VICKIESUSI Final Result Performing Organization Address [facility] Co de Phone Number [facility] POINT [facility] C[facility] * (ABNORMAL) POCT URINE DIPSTICK, VISUAL READ (08/01/2022 11:37 EST) Color, UA Dark Yellow [facility] Clarity, UA Clear [facility] Glucose, UA Negative . mg/dL [facility] Bilirubin, UA Negative Negative [facility] Ketones, UA Negative . mg/dL [facility] Spec Grav, UA >1.030(A) 1.005 - 1.030 [facility] Blood, UA Trace(A) Negative [facility] pH, UA 6.0 4.6 - 8.0 [facility] Protein, UA 30 mg/dL . mg/dL [facility] Urobilinogen, UA 0.2 0.2 - 1.0 E.U./dL [facility] Nitrite, UA Negative . [facility] Leuk Esterase 1+(A) Negative [facility] Comment [facility] Urine URINE SPECIMEN COLLECTION, CLEAN CATCH / Unknown 08/01/2022 11:37 EST Radha MARTINS-C POINT OF CARE TEST ORDMaya AMBROSIO Final Result Performing Organization Address City/[facility]/ZIP Co de Phone Number [facility] POINT [facility]ARE documented in this encounter Visit Diagnoses Diagnosis Lower abdominal pain- Primary Abdominal pain, other specified site Vaginal discharge Leukorrhea, not specified as infective documented in this encounter Historical Medications * This list may reflect changes made after this encounter. lactobacillus rhamnosus, GG, (CULTURELLE) 10 billion cell capsule Take 1 Capsule by mouth daily. added in this encounter Care Teams Commodity Broker Relationship Specialty Start Date End Date Mary Montana MD [address] [place] [address] PCP - General 04/05/19 10/27/22 Mary Montana MD [address] [place] [address] 03/25/19 documented as of this encounter
--- OUTSIDE RECORDS SUMMARY | 2024-09-15 00:27 | XMS_ITS | Encounter Summary ---
Author Organization [facility] Address [address] [place] [address] Care Team Providers Care Acupressurist Name Role Phone Mary Montana MD Unavailable Mary Montana MD Primary Care Provider [phone] Livier Valdez NP Primary Care Provider [phone] Encounter Details Date Type Department Care Team (Late st Contact Info) Description 04/24/2022 Community Orders [facility] [address] [place] [address] Livier Valdez, COST CONSULTANT [address] [place], [place] [phone] Unspecified general medical examination (Primary Dx); Screening examination for venereal disease Social History [...] Priority Date/Time Associated Diagnosis Comments PAP TEST Routine 04/23/2022 15:16 EDT Unspecified general medical examination HPV DNA DETECTION WITH GENOTYPING, PCR Today 04/23/2022 15:16 EDT Unspecified general medical examination documented in this encounter Results * HUMAN PAPILLOMAVIRUS (HPV) DETECTION-HIGH RISK TYPES (04/23/2022 15:16 EDT) HPV other High Risk types, PCR Negative Negative 04/29/2022 15:15 EDT [facility] Comment:No E6 or E7 mRNA is detected from HPV types 16,18,31,33,35,39,45,51,52,56,58,59,66, and 68 by trimmer sawyer mediated amplification. Papanicolaou smear specimen (specimen) CERVIX UTERI STRUCTURE / Unknown 04/23/2022 15:16 EDT 04/26/2022 15:23 EDT us Livier Valdez NP MICROBIOLOGY - GENERAL ORDERABLE S Final Result [facility] [address] [place] [id number] * TRICHOMONAS VAGINALIS PCR - [facility] [place] [place] (04/23/2022 15:16 EDT) Trichomonas Vaginalis, PCR Not Detected Not Detected 04/24/2022 22:01 EDT [facility] Comment:Xpert TV assay perfo rmance has not been evaluated in women or in patients with a history of hysterectomy. Swab ENTIRE VAGINA / Unknown Swab / Unknown 04/23/2022 15:16 EDT 04/24/2022 16:00 EDT Livier Valdez NP MICROBIOLOGY - GENERAL ORDERABLE S Final Result Performing Organization Address [facility]/ZIP Co de Phone Number [facility] [address] [place] [phone] * CHLAMYDIA/N. GONORRHOEAE AMPLIFIED RNA (04/23/2022 15:16 [...] in patients with a history of hysterectomy. Livier Valdez NP MICROBIOLOGY - GENERAL ORDERABLE S Final Result Performing Organization Address [facility] Co de Phone Number [facility] [address] [place] [phone] * PAP TEST (04/23/2022 15:16 EDT) Specimens A. Cervix and/or Endocervix , ThinPrep Imaging System with Manual Evaluation 04/29/2022 15:15 EDT [facility] Specimen Adequacy Satisfactory for Evaluation - transformation zone component present Scant squamous epithelial component 04/29/2022 15:15 EDT [facility] General Categorization Negative for intraepithelial lesion or malignancy 04/29/2022 15:15 EDT [facility] Attestation . 04/29/2022 15:15 EDT [facility] at 1515 Clinical History screening 04/29/20 15:15 EDT [facility] HPV The result for the Human Papillomavirus (HPV) Detection-High Risk Types is Negative. No E6 or E7 mRNA is detected from HPV types 16,18,31,33,35,39 ,45,51,52,56,58,5 9,66, and 68 by trimmer sawyer mediated amplification.Caprice ting was performed on specimen [id number] and was resulted on 04/29/2022 1513 EDT by RICKY, LAB INSTRUMENT RESULTS IN 04/29/2022 15:15 EDT [facility] Performing Lab [facility] 04/29/2022 15:15 EDT [facility] Scanned Images 04/29/2022 15:15 EDT [facility] Papanicolaou smear specimen (specimen) CERVIX UTERI STRUCTURE / Unknown 04/23/2022 15:16 EDT 04/24/2022 13:44 EDT Comment:date of collection 0 [id number] us Livier Valdez COST CONSULTANT PATHOLOGY ORDERABLES Final Resul t [facility] [address] [place] [address] documented in this encounter Visit Diagnoses Diagnosis Unspecified general medical examination- Primary Screening examination for venereal disease documented in this encounter Additional Health Concerns Infection Onset Date Last Indicated Resolved Time R/O COVID-19 04/16/2023 04/16/2023 04/16/2023 23:3 7 EDT COVID-04/16/2023 04/16/2023 05/06/2023 22:1 5 EDT documented as of this encounter Care Teams Acupressurist Relationship Specialty Start Date End Date Mary Montana MD [address] [place] [phone] PCP - General 04/05/19 10/27/22 Livier Valdez NP [address] [place] [address] PCP - General Family Medicine - Primary Care 10/28/22 Mary Montana MD [address] [place] [address] 03/25/19 documented as of this encounter
--- OUTSIDE RECORDS SUMMARY | 2024-09-15 00:27 | XMS_ITS | Encounter Summary ---
Author Organization [facility] Address [address] [place] [address] Care Team Providers Care Sales And Business Development Manager Name Role Phone Mary Montana MD Unavailable Livier Valdez RESTAURANT RECRUITER Primary Care Provider [phone] Encounter Details Date Type Department Care Team (Latest Contact Info) Description 12/27/2022 Travel Social History Tobacco Use Types Packs/Day [...] on filedocumented in this encounter Care Teams Sales And Business Development Manager Relationship Specialty Start Date End Date Livier Valdez NP [address] [place] [address] PCP - General Family Medicine - Primary Care 10/28/22 Mary Montana MD [address] [place] [phone] 03/25/19 documented as of this encounter
--- OUTSIDE RECORDS SUMMARY | 2024-09-15 00:27 | XMS_ITS | Encounter Summary ---
Author Organization [facility] Address [address] [place] [address] Care Team Providers Care Haulage Boss Name Role Phone Mary Montana MD Unavailable Mary Montana MD Primary Care Provider [phone] Encounter Details Date Type Department Care Team (Late st Contact Info) Description 08/23/2022 Results Only [facility] - [facility] [address] [place] [address] Livier Valdez, TOPOGRAPHICAL FIELD ASSISTANT [address] [place], [place] [phone] Social History Tobacco Use Types Packs/Day Years [...] Procedure Name Priority Date/Time Associated Diagnosis Comments COMPREHENSIVE METABOLIC PANEL (CMP) Routine 08/23/2022 10:04 EST documented in this encounter Results * (ABNORMAL) COMPREHENSIVE METABOLIC PANEL (CMP) (08/23/2022 10:04 EST) Glucose 86.00 70.00 - 100.00 mg/dL [facility] Bun 8.00 7.00 - 20.00 mg/dL [facility] Creatinine 0.80 0.70 - 1.50 mg/dL [facility] GFR, Calculated >60 [facility] Comment: Chronic renal impairment is defined as GFR <60 Multiply result by 1.210 for patients eGFR calculated using the IDMS-traceable MDRD study Sodium 141.00 137.00 - 145.00 mmol/L [facility] Potassium 4.30 3.50 - 5.10 mmol/L [facility] Chloride 108.00(H) 98.00 - 107.00 mmol/L [facility] Carbon Dioxide 29.00 22.00 - 30.00 mmol/L [facility] Calcium 9.20 8.50 - 10.50 mg/dL [facility] Anion Gap 4(L) 7 - 17 mmol/L [facility] Total Protein 7.40 6.30 - 8.20 g/dL [facility] Albumin 4.20 3.50 - 5.00 g/dL [facility] Total Bilirubin 0.60 0.20 - 1.30 mg/dL [facility] AST/SGOT 33.00 15.00 - 46.00 U/L [facility] ALT/SGPT 42.00(H) 0.00 - 35.00 U/L [facility] ALK 74.00 38.00 - 126.00 U/L [facility] 08/23/2022 10:0 4 EST us Livier Carlos Valdez TOPOGRAPHICAL FIELD ASSISTANT CHEMISTRY & BLOOD GAS ORDERABLES Final Result [facility] [address] [place], [place] [phone] documented in this encounter Visit Diagnoses Not on filedocumented in this encounter Care Teams Haulage Boss Relationship Specialty Start Date End Date Mary Montana MD [address] [place] [address] PCP - General 04/05/19 10/27/22 Mary Montana MD [address] [place] [phone] 03/25/19 documented as of this encounter
--- OUTSIDE RECORDS SUMMARY | 2024-09-15 00:27 | XMS_ITS | Encounter Summary ---
Author Organization [facility] Address [address] [place] [address] Care Team Providers Care Bi Consultant Name Role Phone Mary Montana MD Unavailable Mary Montana MD Primary Care Provider [phone] Livier Valdez NP Primary Care Provider [phone] Encounter Details Date Type Department Care Team (Late st Contact Info) Description 08/23/2022 Community [facility] [address] [place], [place] [phone] Livier Valdez, EXHIBIT CLEANER [address] [place], [place] [phone] Hematuria, unspecified type (Primary Dx); Low back pain, unspecified back pain laterality, unspecified chronicity, unspecified whether sciatica present Social History Tobacco Use Types Packs/Day Years [...] of this encounter Results * (ABNORMAL) UA WITH REFLEX SEDIMENT (08/23/2022 10:00 EST) Color UA Yellow Colorless to Dark Yellow 08/23/2022 18:33 [facility] Clarity UA Cloudy(A) Clear 08/23/2022 18:33 [facility] Glucose UA Negative Negative 08/23/2022 18:33 [facility] Bilirubin UA 1+(A) Negative 08/23/2022 18:33 [facility] Ketones UA Trace(A) Negative 08/23/2022 18:33 [facility] Specific Mcintosh, Urine >=1.030 1.001 - 1.035 08/23/2022 18:33 [facility] Blood UA 1+(A) Negative 08/23/2022 18:33 [facility] pH, UA 6.0 4.6 - 8.0 08/23/2022 18:33 [facility] Protein UA 1+(A) Negative 08/23/2022 18:33 [facility] Urobilinogen UA 0.2 0.2 , 1.0, Normal mg/dL 08/23/2022 18:33 [facility] Nitrite UA Negative Negative 08/23/2022 18:33 [facility] Leukocyte Esterase UA 1+(A) Negative 08/23/2022 18:33 EST [facility] Urine URINE SPECIMEN COLLECTION, CLEAN CATCH / Unknown Urine Collect / Unknown 08/23/2022 10:00 EST 08/23/2022 17:37 EST us Livier Valdez EXHIBIT CLEANER URINALYSIS ORDERABLES Final Resu lt Performing Organization Address [facility] Co de Phone Number [facility] [address] [place] [address] * (ABNORMAL) BACTERIAL CULTURE, URINE (08/23/2022 10:00 EST) Organism ID Greater than 100,000 CFU/ml Streptococcus beta hemolytic group B(A) VITEK SUSCEPTIBILITY 08/25/2022 11:07 [facility] Organism ID 10, 000 to 100,000 CFU/ml VITEK SUSCEPTIBILITY 08/25/2022 11:07 [facility] Comment: Usual urogenital kishor. Urine URINE SPECIMEN COLLECTION, CLEAN CATCH / Unknown Urine Collect / Unknown 08/23/2022 10:00 EST 08/23/2022 17:37 EST us Livier Valdez NP MICROBIOLOGY - GENERAL ORDERABLE S Final Result Performing Organization Address [facility] Co de Phone Number [facility] [address] [place] [address] * C REACTIVE PROTEIN (08/23/2022 10:00 EST) C-Reactive Protein <5.0 <10.0 mg/L 08/23/2022 17:58 [facility] Blood VENOUS BLOOD / Unknown Venipuncture / Unknown 08/23/2022 10:00 EST 08/23/2022 17:37 EST us Livier Valdez EXHIBIT CLEANER CHEMISTRY & BLOOD GAS ORDERABLES Final Result Performing Organization Address [facility] Co de Phone Number [facility] [address] [place] [phone] documented in this encounter Visit Diagnoses Diagnosis Hematuria, unspecified type- Primary Low back pain, unspecified back pain laterality, unspecified chronicity, unspecified whether sciatica present documented in this encounter Additional Health Concerns Infection Onset Date Last Indicated Resolved Time R/O COVID-04/16/2023 04/16/2023 04/16/2023 23:3 7 EDT COVID-04/16/2023 04/16/2023 05/06/2023 22:1 5 EDT documented as of this encounter Care Teams Bi Consultant Relationship Specialty Start Date End Date Mary Montana MD [address] [place] [phone] PCP - General 04/05/19 10/27/22 Livier Valdez NP [address] [place] [phone] PCP - General Family Medicine - Primary Care 10/28/22 Mary Montana MD [address] [place] [phone] 03/25/19 documented as of this encounter
--- OUTSIDE RECORDS SUMMARY | 2024-09-15 00:27 | XMS_ITS | Encounter Summary ---
Author Organization [facility] Address [address] [place] [address] Care Team Providers Care Software Sales Executive Name Role Phone Mary Montana MD Unavailable Mary Montana MD Primary Care Provider [phone] Encounter Details Date Type Department Care Team (Latest Contact Info) Description 09/11/2022 - 09/11/2022 23:59 EST Hospital Encounter [facility] - [facility] [facility] Lab - Main [address] [place] [address] Packing And Stamping Machine OperatorGreater [facility] Py[facility] Discharge Disposition: Home or Self Care Social [...] Associated Diagnosis Comments TRICHOMONAS VAGINALIS PCR - [facility] Routine 09/11/2022 18:11 EST Pyuria CHLAMYDIA/N. GONORRHOEAE AMPLIFIED NUCLEIC ACID Routine 09/11/2022 18:11 EST Pyuria documented in this encounter Results * CHLAMYDIA/N. GONORRHOEAE AMPLIFIED RNA (09/11/2022 18:11 EST) Neisseria gonorrhoeae Result Negative Negative 09/12/2022 14:56 EST [facility] Chlamydia trachomatis Result Negative Negative 09/12/2022 14:56 EST [facility] Urine ENTIRE URETHRA / Unknown Urine Collect / Unknown 09/11/2022 18:11 EST 09/12/2022 13:13 EST [facility] - 09/12/2022 14:56 EST A first catch urine specimen is acceptable for detection of Gonorrhea and Chlamydia, but might detect up to 10% fewer infections when compared with vaginal and endocervical swab samples. ? ? Xpert CT/NG Assay performance has not been evaluated in patients less than 14 years of age. ? ? Xpert CT/NG Assay performance has not been evaluated in women, or in patients with a history of hysterectomy. us Livier Valdez TRUCK DRIVER FLATBED MICROBIOLOGY - GENERAL ORDERABLE S Final Result Performing Organization Address City/[facility]/ZIP Co de Phone Number [facility] [address] [place] [address] * TRICHOMONAS VAGINALIS PCR - [facility] (09/11/2022 18:11 EST) Trichomonas Vaginalis, PCR Not Detected Not Detected 09/12/2022 14:39 EST [facility] Comment:Xpert TV assay perfo rmance has not been evaluated in women or in patients with a history of hysterectomy. Urine URINE / Unknown Urine Collect / Unknown 09/11/2022 18:11 EST 09/12/2022 13:14 EST Livier Valdez TRUCK DRIVER FLATBED MICROBIOLOGY - GENERAL ORDERABLE S Final Result Performing Organization Address City/[facility] Co de Phone Number [facility] [address] [place] [address] documented in this encounter Visit Diagnoses Diagnosis Pyuria Other nonspecific finding on examination of urine documented in this encounter Care Teams Software Sales Executive Relationship Specialty Start Date End Date Mary Montana MD [address] [place] [phone] PCP - General 04/05/19 10/27/22 Mary Montana MD [address] [place] [phone] 03/25/19 documented as of this encounter
--- OUTSIDE RECORDS SUMMARY | 2024-09-15 00:27 | XMS_ITS | Encounter Summary ---
Author Organization [facility] Address [address] [place] [address] Care Team Providers Care Assisted Living Executive Director Name Role Phone Mary Montana MD Unavailable Mary Montana MD Primary Care Provider [phone] Reason for Referral * Radiology Services (Routine/Next Available) - Authorization Not Required Specialty Diagnoses / Procedures Referred By Contac t Referred To Contact Diagnoses Abdominal pain Procedures CT ABDOMEN PELVIS W CONTRAST Livier Valdez NP [address] [place] [address] Phone: tel: fax: [facility] Referral ID Status Reason Start Date Expiration Date Visits Requested Visits Authorized [id number] Authorization Not Required 09/12/2022 1 1 Reason for Visit * Radiology Services (Routine/Next Available) - Authorization Not Required Specialty Diagnoses / Procedures Referred By Contac t Referred To Contact Diagnoses Abdominal pain Procedures CT ABDOMEN PELVIS W CONTRAST Livier Valdez NP [address] [place] [address] Phone: tel: fax: [facility] Referral ID Status Reason Start Date Expiration Date Visits Requested Visits Authorized [id number] Authorization Not Required 09/12/2022 1 1 Encounter Details Date Type Department Care Team (Latest Contact Info) Description 09/26/2022 14:00 EST - 09/26/2022 23:59 EST Hospital Encounter [facility] CT Scan [address] [place] [address] Abdominal pain Discharge Disposition: Home or Self Care [...] Name Priority Date/Time Associated Diagnosis Comments CT ABDOMEN PELVIS W CONTRAST Routine 09/26/2022 14:23 EST Abdominal pain documented in this encounter Results * CT ABDOMEN PELVIS W CONTRAST (09/26/2022 14:23 EST) Anatomical Region Laterality Modality Body, Abdomen, Pelvis, Abdomen and Pelvis Computed Tomography 09/26/2022 14:0 8 EST Impressions 09/27/2022 15:03 EST 1. The uterus is retroflexed. There is an IUD within the endometrium. The patient is status post tubal ligation the left tubal ligation clip is displaced. 2. Left ovarian cyst. This could be followed up with ultrasound examination in 1 months time to assess for stability or resolution. 3. Status post cholecystectomy. Mild fatty infiltration of the liver. THIS DOCUMENT HAS BEEN ELECTRONICALLY SIGNED BY JUAN HECTOR MD FOR ANY QUESTIONS OR CONCERNS REGARDING THIS REPORT PLEASE CALL [facility] AT [phone] Narrative 09/27/2022 15:03 EST PROCEDURE INFORMATION: Exam: CT Abdomen And Pelvis With Contrast Exam date and time: 09/26/2022 2:08 PM Age: 37 years old Clinical indication: Unspecified abdominal pain; Other: Unknown; Additional info: Low back pain. Abd llq. Diarrhea. New urinary incontinence/loss of bladder sensation/control. Has sigmoid diverticulosis seen on past imaging. Urine positive for phosphate crystals. TECHNIQUE: Imaging protocol: Computed tomography of the abdomen and pelvis with contrast. Radiation optimization: All CT scans at this facility use at least one of these dose optimization techniques: automated exposure control; mA and/or kV adjustment per patient size (includes targeted exams where dose is matched to clinical indication); or iterative reconstruction. Contrast material: OMNI 350; Contrast volume: 100 ml; Contrast route: INTRAVENOUS (IV); ?? Other protocol: This patient has received 0 known CTs and 0 known cardiac nuclear medicine studies in the 12 months prior to the current study. COMPARISON: CT RENAL STONE 08/05/2021 11:04 AM FINDINGS: Tubes, catheters and devices: There is an intrauterine device within the uterus. Lungs: The visualized lung bases are within normal limits. Heart: The visualized portions of the heart and pericardium are unremarkable. Coronary arteries: There are no coronary artery calcifications. Liver: There is mild fatty infiltration of the liver. Gallbladder and bile ducts: The patient is status post cholecystectomy. Pancreas: The pancreas is unremarkable. Spleen: The spleen is within normal limits. Adrenal glands: The adrenal glands are within normal limits. Kidneys and ureters: The kidneys are within normal limits. Stomach and bowel: Unremarkable. No obstruction. No mucosal thickening. Appendix: No evidence of appendicitis. Intraperitoneal space: Unremarkable. No free air. No significant fluid collection. Vasculature: Unremarkable. No abdominal aortic aneurysm. Lymph nodes: ??No enlarged lymph nodes. Urinary bladder: Unremarkable as visualized. Reproductive: The uterus is retroflexed. See above. There is a left ovarian cyst measuring 4.0 x 2.9 cm. The right ovary is within normal limits. The patient is status post tubal ligation. The right clip is in the correct position. The left clip is displaced. Bones/joints: There are slight degenerative changes of the thoracic and lumbar spines. ?? Soft tissues: There is a small fat containing umbilical hernia. There is a small intra mamillary lymph node involving the right breast. Procedure Note Juan Hector MD - 09/27/2022 PROCEDURE INFORMATION: Exam: CT Abdomen And Pelvis With Contrast Exam date and time: 09/26/2022 2:08 PM Age: 37 years old Clinical indication: Unspecified abdominal pain; Other: Unknown; Additional info: Low back pain. Abd llq. Diarrhea. New urinary incontinence/loss of bladder sensation/control. Has sigmoid diverticulosis seen on past imaging. Urine positive for phosphate crystals. TECHNIQUE: Imaging protocol: Computed tomography of the abdomen and pelvis with contrast. Radiation optimization: All CT scans at this facility use at least one of these dose optimization techniques: automated exposure control; mA and/or kV adjustment per patient size (includes targeted exams where dose is matched to clinical indication); or iterative reconstruction. Contrast material: OMNI 350; Contrast volume: 100 ml; Contrast route: INTRAVENOUS (IV); Other protocol: This patient has received 0 known CTs and 0 known cardiac nuclear medicine studies in the 12 months prior to the current study. COMPARISON: CT RENAL STONE 08/05/2021 11:04 AM FINDINGS: Tubes, catheters and devices: There is an intrauterine device within the uterus. Lungs: The visualized lung bases are within normal limits. Heart: The visualized portions of the heart and pericardium are unremarkable. Coronary arteries: There are no coronary artery calcifications. Liver: There is mild fatty infiltration of the liver. Gallbladder and bile ducts: The patient is status post cholecystectomy. Pancreas: The pancreas is unremarkable. Spleen: The spleen is within normal limits. Adrenal glands: The adrenal glands are within normal limits. Kidneys and ureters: The kidneys are within normal limits. Stomach and bowel: Unremarkable. No obstruction. No mucosal thickening. Appendix: No evidence of appendicitis. Intraperitoneal space: Unremarkable. No free air. No significant fluid collection. Vasculature: Unremarkable. No abdominal aortic aneurysm. Lymph nodes: No enlarged lymph nodes. Urinary bladder: Unremarkable as visualized. Reproductive: The uterus is retroflexed. See above. There is a left ovarian cyst measuring 4.0 x 2.9 cm. The right ovary is within normal limits. The patient is status post tubal ligation. The right clip is in the correct position. The left clip is displaced. Bones/joints: There are slight degenerative changes of the thoracic and lumbar spines. Soft tissues: There is a small fat containing umbilical hernia. There is a small intra mamillary lymph node involving the right breast. IMPRESSION 1. The uterus is retroflexed. There is an IUD within the endometrium. The patient is status post tubal ligation the left tubal ligation clip is displaced. 2. Left ovarian cyst. This could be followed up with ultrasound examination in 1 months time to assess for stability or resolution. 3. Status post cholecystectomy. Mild fatty infiltration of the liver. THIS DOCUMENT HAS BEEN ELECTRONICALLY SIGNED BY JUAN HECTOR MD FOR ANY QUESTIONS OR CONCERNS REGARDING THIS REPORT PLEASE CALL [facility] [phone] us Livier Valdez NP IMG CT ORDERABLES Final Result documented in this encounter Visit Diagnoses Diagnosis Abdominal pain Abdominal pain, unspecified site documented in this encounter Administered Medications Inactive Administered Medications - up to 3 most recent administrations Medication Order MAR Action Action Date Dose Rate Site iohexoL (OMNIPAQUE 350) solution 100 mL 100 mL, intravenous, Once in imaging, 1 dose, Starting on Darlene 09/26/22 at 1404, Until Darlene 09/26/22 at 1423, Routine, Imaging Protocol Orders Given 09/26/2022 14:23 EST 100 mL documented in this encounter Care Teams Assisted Living Executive Director Relationship Specialty Start Date End Date Mary Montana MD [address] [place] [phone] PCP - General 04/05/19 10/27/22 Mary Montana MD [address] [place] [phone] 03/25/19 documented as of this encounter
--- OUTSIDE RECORDS SUMMARY | 2024-09-15 00:27 | XMS_ITS | Encounter Summary ---
Author Organization [facility] Address [address] [place] [address] Care Team Providers Care Marketing Trainee Name Role Phone Mary Montana MD Unavailable Mary Montana MD Primary Care Provider [phone] Encounter Details Date Type Department Care Team (Latest Contact Info) Description 08/23/2022 17:36 EST - 08/23/2022 23:59 EST Hospital Encounter [facility] [place] [address] [id number] Semiconductor Equipment Technician, [facility] Low back pain, unspecified back pain laterality, unspecified chronicity, unspecified whether sciatica present; Hematuria, unspecified type Discharge Disposition: Home or Self Care Social [...] Name Priority Date/Time Associated Diagnosis Comments UA WITH REFLEX SEDIMENT Routine 08/23/2022 10:00 EST Hematuria, unspecified type URINE SEDIMENT (MICRO) WITHOUT REFLEX TO CULTURE Today 08/23/2022 10:00 EST Hematuria, unspecified type BACTERIAL CULTURE, URINE Routine 08/23/2022 10:00 EST Hematuria, unspecified type C REACTIVE PROTEIN Routine 08/23/2022 10 :00 EST Low back pain, unspecified back pain laterality, unspecified chronicity, unspecified whether sciatica present documented in this encounter Results * (ABNORMAL) URINE SEDIMENT (MICRO) WITHOUT REFLEX TO CULTURE (08/23/2022 10:00 EST) Urine RBC Count, Manual 0 - 2 0 - 2, None Seen Cells/HPF 08/23/2022 18:33 EST [facility] Urine WBC Count 4 - 10(A) 0 - 3, None Seen Cells/HPF 08/23/2022 18:33 EST [facility] Urine Squamous Count, Manual Few(A) None Seen Cells/HPF 08/23/2022 18:33 [facility] Urine Bacteria Count, Manual Few(A) None Seen Bacteria/ HPF 08/23/2022 18:33 [facility] Urine Crystals Amorphous Phosphates Present(A) None Seen 08/23/2022 18:33 [facility] Urine URINE SPECIMEN COLLECTION, CLEAN CATCH / Unknown Urine Collect / Unknown 08/23/2022 10:00 EST 08/23/2022 17:37 [facility] - 08/23/2022 18:33 [facility] Urine Sediment Analysis results are unreliable on urines that are unrefrigerated for >2 hrs or refrigerated >8 hrs. us Livier Valdez NP URINALYSIS ORDERABLES Final Resu lt [facility] [address] [place] [address] * (ABNORMAL) UA WITH REFLEX SEDIMENT (08/23/2022 10:00 EST) Color UA Yellow Colorless to Dark Yellow 08/23/2022 18:33 [facility] Clarity UA Cloudy(A) Clear 08/23/2022 18:33 [facility] Glucose UA Negative Negative 08/23/2022 18:33 [facility] Bilirubin UA 1+(A) Negative 08/23/2022 18:33 [facility] Ketones UA Trace(A) Negative 08/23/2022 18:33 [facility] Specific Phyllis, Urine >=1.030 1.001 - 1.035 08/23/2022 18:33 [facility] Blood UA 1+(A) Negative 08/23/2022 18:33 [facility] pH, UA 6.0 4.6 - 8.0 08/23/2022 18:33 [facility] Protein UA 1+(A) Negative 08/23/2022 18:33 [facility] Urobilinogen UA 0.2 0.2 , 1.0, Normal mg/dL 08/23/2022 18:33 [facility] Nitrite UA Negative Negative 08/23/2022 18:33 EST [facility] Leukocyte Esterase UA 1+(A) Negative 08/23/2022 18:33 EST [facility] Urine URINE SPECIMEN COLLECTION, CLEAN CATCH / Unknown Urine Collect / Unknown 08/23/2022 10:00 EST 08/23/2022 17:37 EST us Livier Valdez SOCIAL SCIENCES INSTRUCTOR URINALYSIS ORDERABLES Final Resu lt Performing Organization Address [facility] Co de Phone Number [facility] [address] [place] [address] * (ABNORMAL) BACTERIAL CULTURE, URINE (08/23/2022 10:00 EST) Organism ID Greater than 100,000 CFU/ml Streptococcus beta hemolytic group B(A) VITEK SUSCEPTIBILITY 08/25/2022 11:07 [facility] Organism ID 10, 000 to 100,000 CFU/ml VITEK SUSCEPTIBILITY 08/25/2022 11:07 EST [facility] Comment: Usual urogenital kishor. Urine URINE SPECIMEN COLLECTION, CLEAN CATCH / Unknown Urine Collect / Unknown 08/23/2022 10:00 EST 08/23/2022 17:37 EST us Livier Valdez NP MICROBIOLOGY - GENERAL ORDERABLE S Final Result Performing Organization Address [facility] de Phone Number [facility] [address] [place] [phone] * C REACTIVE PROTEIN (08/23/2022 10:00 EST) C-Reactive Protein <5.0 <10.0 mg/L 08/23/2022 17:58 EST [facility] Blood VENOUS BLOOD / Unknown Venipuncture / Unknown 08/23/2022 10:00 EST 08/23/2022 17:37 EST us Livier Valdez NP CHEMISTRY & BLOOD GAS ORDERABLES Final Result Performing Organization Address [facility] Co de Phone Number [facility] [address] [place] [phone] documented in this encounter Visit Diagnoses Diagnosis Low back pain, unspecified back pain laterality, unspecified chronicity, unspecified whether sciatica present Hematuria, unspecified type documented in this encounter Care Teams Marketing Trainee Relationship Specialty Start Date End Date Mary Montana MD [address] [place] [phone] PCP - General 04/05/19 10/27/22 Mary Montana MD [address] [place] [address] 03/25/19 documented as of this encounter
--- OUTSIDE RECORDS SUMMARY | 2024-09-15 00:27 | XMS_ITS | Encounter Summary ---
Author Organization [facility] Address [address] [place] [address] Care Team Providers Care Release Of Information Clerk Name Role Phone Mary Montana MD Unavailable Mary Montana MD Primary Care Provider [phone] Encounter Details Date Type Department Care Team (Late st Contact Info) Description 01/16/2021 Results Only [facility] - [facility] [place] Lab - Main [address] [id number] Beau Campa MD [address] [place] [id number] Social History Tobacco Use Types Packs/Day [...] Date/Time Associated Diagnosis Comments SURGICAL PATHOLOGY Routine 01/16/2021 documented in this encounter Results * SURGICAL PATHOLOGY (01/16/2021) 01/16/2021 01/16/2021 14: 59 EDT Narrative [facility] - 01/17/2021 12:15 EDT ----- ------- Name: JONATHON HALL ?: [birth year] ?Age/Sex: 35/F ?Unit#: [id number] ? Loc: SDS ? Status: DEP SDC ?? Reg Date: 01/16/21 ? Pt.Phone Number: ? ----- ------- Specimen: [id number] ? STATUS: SOUT ?Spec Date:01/16/21 ? Physician Copies: ?Beau Campa MD ? Tissues: A ?? Gallbladder ?Mary Montana MD ? CPT: 31909 ?? Units: ??1 ?FINAL DIAGNOSIS ? GALLBLADDER, CHOLECYSTECTOMY; ? - Benign gallbladder with cholelithiasis. ? GROSS DESCRIPTION ? Received in formalin labeled Jonathon Hall and gallbladder is a ? cholecystectomy specimen that measures 6.7 cm in length wih a greatest diameter ? of 2.5 cm. ??There is a surgical staple present at the cystic duct margin. The ? cystic duct has a diameter of 0.2 cm. The serosal surface is adair-pink and ? smooth. Fully opening the gallbladder releases approximately 10cc of green bile ? as well as one stone that is adair-brown and rough textured. It measures 0.5 cm ? in diameter. The mucosal surface is adair and velvety. The gallbladder wall has ? an average thickness of 0.1 cm. Color Worker sections are submitted. rs 1. ? KT/db ?? PREOP DX/CLINICAL HISTORY ?BILIARY COLIC CHOLELITHIASIS Signed ____(signature on file)____ Victor M Rivas 01/17/21 ? By the signature above, the attending physician certifies that he/she has personally conducted a gross and/or microscopic examination of the described specimens and rendered or confirmed the above diagnosis. Test Performed by [facility], [address] [place], [place] [id number] Sausage Mixer: Mahi Little MD PHD ----- ------- us Beau Campa MD PATHOLOGY ORDERABLES Final Resul t [facility] [address] [place], [place] [phone] documented in this encounter Visit Diagnoses Not on filedocumented in this encounter Care Teams Release Of Information Clerk Relationship Specialty Start Date End Date Mary Montana MD [address] [place] [phone] PCP - General 04/05/19 10/27/22 Mary Montana MD [address] [place] [phone] 03/25/19 documented as of this encounter
--- OUTSIDE RECORDS SUMMARY | 2024-09-15 00:27 | XMS_ITS | Encounter Summary ---
Author Organization [facility] Address [address] [place] [address] Care Team Providers Care Physical Therapy Director Name Role Phone Mary Montana MD Unavailable Mary Montana MD Primary Care Provider [phone] Reason for Visit * Radiology Services (STAT) - Closed Specialty Diagnoses / Procedures Referred By Kenn deluna Referred To Contact Diagnoses Hemorrhagic cyst of left ovary Procedures US PELVIS TRANSVAGINAL W DOPPLER US PELVIS TRANSABDOMINAL AND TRANSVAGINAL W DOPPLER US PELVIS TRANSABDOMINAL AND TRANSVAGINAL W DOPPLER Brett Sellers PA-C Phone: tel: fax: Referral ID Status Reason Start Date Expiration Date Visits Re quested Visits Authorized [id number] Closed 08/05/2021 1 1 Encounter Details Date Type Department Care Team (Latest Contact Info) Description 08/06/2021 13:47 EST - 08/06/2021 23:59 EST Hospital En[place] [facility] [place] [facility] [place] [address] [place] [address] Discharge Disposition: Home or Self Care Social [...] 14:32 EST Hemorrhagic cyst of left ovary documented in this encounter Results * US [...] cavity of the uterine fundus. us Brett Hare PA-C IMG US ORDERABLES Final Result documented in this encounter Visit Diagnoses Not on filedocumented in this encounter Care Teams Physical Therapy Director Relationship Specialty Start Date End Date Mary Montana MD [address] [place] [phone] PCP - General 04/05/19 10/27/22 Mary Montana MD [address] [place] [address] 03/25/19 documented as of this encounter
--- OUTSIDE RECORDS SUMMARY | 2024-09-15 00:27 | XMS_ITS | Encounter Summary ---
Author Organization [facility] Address [address] [place] [address] Care Team Providers Care Hose Wrapper Name Role Phone Mary Montana MD Unavailable Mary Montana MD Primary Care Provider [phone] Livier Valdez NP Primary Care Provider [phone] Encounter Details Date Type Department Care Team (Late st Contact Info) Description 09/12/2022 Community Orders [facility] [address] [place], [place] [id number] Livier Valdez, CRANE MECHANIC [address] [place], [place] [phone] Pyuria (Primary Dx) Social History Tobacco Use Types [...] documented as of this encounter Results * TRICHOMONAS VAGINALIS PCR - [facility] (09/11/2022 18:11 EST) Trichomonas Vaginalis, PCR Not Detected Not Detected 09/12/2022 14:39 EST [facility] Comment:Xpert TV assay perfo rmance has not been evaluated in women or in patients with a history of hysterectomy. Urine URINE / Unknown Urine Collect / Unknown 09/11/2022 18:11 EST 09/12/2022 13:14 EST us Livier Valdez NP MICROBIOLOGY - GENERAL ORDERABLE S Final Result Performing Organization Address City/State/[facility] Co de Phone Number [facility] [address] [place] [address] * CHLAMYDIA/N. GONORRHOEAE AMPLIFIED RNA (09/11/2022 18:11 EST) Neisseria gonorrhoeae Result Negative Negative 09/12/2022 14:56 EST [facility] Chlamydia trachomatis Result Negative Negative 09/12/2022 14:56 EST [facility] Urine ENTIRE URETHRA / Unknown Urine Collect / Unknown 09/11/2022 18:11 EST 09/12/2022 13:13 EST Narrative [facility] - 09/12/2022 14:56 EST A first [...] MICROBIOLOGY - GENERAL ORDERABLE S Final Result [facility] [address] [place] [address] documented in this encounter Visit Diagnoses Diagnosis Pyuria- Primary Other nonspecific finding on examination of urine documented in this encounter Additional Health Concerns Infection Onset Date Last Indicated Resolved Time R/O COVID-04/16/2023 04/16/2023 04/16/2023 23:3 7 EDT COVID-04/16/2023 04/16/2023 05/06/2023 22:1 5 EDT documented as of this encounter Care Teams Hose Wrapper Relationship Specialty Start Date End Date Mary Montana MD [address] [place] [phone] PCP - General 04/05/19 10/27/22 Livier Valdez, MARLINE [address] [place] [phone] PCP - General Family Medicine - Primary Care 10/28/22 Mary Montana MD [address] [place] [phone] 03/25/19 documented as of this encounter
--- OUTSIDE RECORDS SUMMARY | 2024-09-15 00:27 | XMS_ITS | Encounter Summary ---
Author Organization [facility] Address [address] [place] [address] Care Team Providers Care Baby Sitter Name Role Phone Mary Montana MD Unavailable Mary Montana MD Primary Care Provider [phone] Encounter Details Date Type Department Care Team (Late st Contact Info) Description 04/17/2021 Results Only [facility] - Main [place] [address] [place] [address] Leanna Hi, PA [address] [place], [place] Social History Tobacco Use Types Packs/Day Years [...] Priority Date/Time Associated Diagnosis Comments VITAMIN D 25 POC - CV Routine 04/17/2021 14:43 EDT LIPID PANEL POC - [facility] Routine 14:43 EDT COMPREHENSIVE METABOLIC POC - [facility] Routine 04/17/2021 14:43 EDT POCT CHOLESTEROL LDL (CV) Routine 04/17/2021 14:43 EDT documented in this encounter Results * (ABNORMAL) VITAMIN D 25 POC - CV (04/17/2021 14:43 EDT) VIT D, 25 HYDROXY - [facility] 24(L) 30 - 100 NG/ML 04/18/2021 14:44 EDT [facility] 04/17/2021 14:4 3 EDT 04/18/2021 14:43 EDT Narrative [facility] - 04/18/2021 14:44 EDT CHRONIC RENAL IMPAIRMENT IS DEFINED GFR <60 MULTIPLY RESULT BY 1.210 FOR PATIENTS EGFR CALCULATED USING THE IDMS-TRACEABLE MDRD STUDY us Leanna MARTINS CHEMISTRY & BLOOD GAS ORDERAB LES Final Result [facility] [address] [place] [address] * (ABNORMAL) LIPID PANEL POC - [facility] (04/17/2021 14:43 EDT) [facility] Triglyceride 88 0.00 - 150.00 MG/DL 04/18/2021 14:44 EDT [facility] Cholesterol 210(H) 0.00 - 200.00 MG/DL 04/18/2021 14:44 EDT [facility] HDL 46 40.00 - 60.00 MG/DL 04/18/2021 14:44 EDT [facility] 04/17/2021 14:4 3 EDT 04/18/2021 14:43 EDT [facility] - 04/18/2021 14:44 EDT CHRONIC RENAL IMPAIRMENT IS DEFINED GFR <60 MULTIPLY RESULT BY 1.210 FOR PATIENTS EGFR CALCULATED USING THE IDMS-TRACEABLE MDRD STUDY Leanna MARTINS CHEMISTRY & BLOOD GAS ORDERAB LES Final Result Performing Organization Address City/[facility]/ZIP Co de Phone Number [facility] [address] [place] [address] * (ABNORMAL) POCT CHOLESTEROL LDL ([facility]) (04/17/2021 14:43 EDT) [facility] LDL CHOLESTEROL - [facility] 146(H) 60 - 100 mg/dl 04/18/2021 14:44 EDT [facility] 04/17/2021 14:4 3 EDT 04/18/2021 14:43 EDT [facility] - 04/18/2021 14:44 EDT CHRONIC RENAL IMPAIRMENT IS DEFINED GFR <60 MULTIPLY RESULT BY 1.210 FOR PATIENTS EGFR CALCULATED USING THE IDMS-TRACEABLE MDRD STUDY Leanna MARTINS POINT OF CARE TEST ORDERABLES Final Result Performing Organization Address City/[facility]/ZIP Co de Phone Number [facility] [address] [place] [address] * (ABNORMAL) COMPREHENSIVE METABOLIC POC - [facility] (04/17/2021 14:43 EDT) Albumin % 4.1 3.50 - 5.00 G/DL 04/18/2021 14:44 [facility] ALKALINE PHOSPHATASE - [facility] 89 38.00 - 126.00 U/L 04/18/2021 14:44 [facility] BILIRUBIN TOTAL 0.4 0.20 - 1.30 MG/DL 04/18/2021 14:44 [facility] BUN - [facility] 9 7.00 - 20.00 MG/DL 04/18/2021 14:44 [facility] CALCIUM - [facility] 9.6 8.50 - 10.50 MG/DL 04/18/2021 14:44 [facility] Chloride 106 98.00 - 107.00 MMOL/L 04/18/2021 14:44 [facility] CO2 Total 26 22.00 - 30.00 MMOL/L 04/18/2021 14:44 [facility] CREATININE 0.8 0.70 - 1.50 MG/DL 04/18/2021 14:44 [facility] Anion Gap 5(L) 7 - 17 04/18/2021 14:44 [facility] GLUCOSE - [facility] 104(H) 70.00 - 100.00 MG/DL 04/18/2021 14:44 [facility] Potassium 4.3 3.50 - 5.10 MMOL/L 04/18/2021 14:44 [facility] Sodium 137 137.00 - 145.00 MMOL/L 04/18/2021 14:44 [facility] TOTAL PROTEIN - [facility] 7.0 6.30 - 8.20 G/DL 04/18/2021 14:44 [facility] SGOT/AST - [facility] 49(H) 15.00 - 46.00 U/L 04/18/2021 14:44 [facility] SGPT/ALT - [facility] 74(H) 0.00 - 35.00 U/L 04/18/2021 14:44 [facility] 04/17/2021 14:4 3 EDT 04/18/2021 14:43 EDT Narrative [facility] - 04/18/2021 14:44 EDT CHRONIC RENAL IMPAIRMENT IS DEFINED GFR <60 MULTIPLY RESULT BY 1.210 FOR PATIENTS EGFR CALCULATED USING THE IDMS-TRACEABLE MDRD STUDY us Leanna MARTINS CHEMISTRY & BLOOD GAS ORDERAB LES Final Result Performing Organization Address City/State/[facility] Co de Phone Number [facility] [address] [place] [address] documented in this encounter Visit Diagnoses Not on filedocumented in this encounter Care Teams Baby Sitter Relationship Specialty Start Date End Date Mary Montana MD [address] [place] [address] PCP - General 04/05/19 10/27/22 Mary Montana MD [address] [place] [phone] 03/25/19 documented as of this encounter
--- OUTSIDE RECORDS SUMMARY | 2024-09-15 00:27 | XMS_ITS | Encounter Summary ---
Author Organization [facility] Address [address] [place] [address] Care Team Providers Care Assistant Professor Of Chemistry Name Role Phone Mary Montana MD Unavailable Mary Montana MD Primary Care Provider [phone] Encounter Details Date Type Department Care Team (Late st Contact Info) Description 04/23/2022 Results Only [facility] - [facility] [address] [place] [address] Livier Valdez, DIVERSITY MANAGER [address] [place], [place] [phone] Social History Tobacco Use Types Packs/Day Years [...] Associated Diagnosis Comments POCT URINE DIPSTICK, CLINITEK Routine 04/23/2022 14:45 EDT documented in this encounter Results * (ABNORMAL) POCT URINE DIPSTICK, CLINITEK (04/23/2022 14:45 EDT) Color (Urine) Yellow YELLOW [facility] Clarify (Urine) Clear CLEAR [facility] Glucose (Urine) Negative NEGATIVE [facility] Bilirubin (Urine) Negative NEGATIVE [facility] Ketones (Urine) Negative NEGATIVE [facility] Specific [place] (Urine) 1.025 [facility] Occult Blood (Urine) Negative NEGATIVE [facility] pH (Urine) 7.0 [facility] Protein (Urine) Negative NEGATIVE [facility] Urobilinogen (Urine) 0.2 0.2 - 1.0 EU/dL [facility] Nitrite (Urine) Negative NEGATIVE [facility] Leukocytes (Urine) Trace(A) NEGATIVE [facility] 04/23/2022 14:4 5 EDT us Livier Valdez DIVERSITY MANAGER POINT OF CARE TEST ORDERABLES Ed ited Result - Final [facility] [address] [place] [address] documented in this encounter Visit Diagnoses Not on filedocumented in this encounter Care Teams Assistant Professor Of Chemistry Relationship Specialty Start Date End Date Mary Montana MD [address] [place] [phone] PCP - General 04/05/19 10/27/22 Mary Montana MD [address] [place] [phone] 03/25/19 documented as of this encounter
--- OUTSIDE RECORDS SUMMARY | 2024-09-15 00:27 | XMS_ITS | Encounter Summary ---
Author Organization [facility] Address [address] [place] [address] Care Team Providers Care Program Advocate Name Role Phone Mary Montana MD Unavailable Mary Montana MD Primary Care Provider [phone] Reason for Visit * Reason Onset Date Comments Other 03/23/2021 Encounter Details Date Type Department Care Team (Late st Contact Info) Description 03/23/2021 Telephone [facility] [address] [place] [address] Angela Titsu MD [address] [facility], [address] [place] [address] Other Social History Tobacco Use Types Packs/Day Years [...] encounter Miscellaneous Notes * Telephone Encounter - Ladi Best RN - 03/23/2021 1135 EDT Spoke with pt. Reports had PNC at [facility]; had her son 06/05/2020. She has been dealing with a lot of bleeding PP. She had an IUD placed and also put on progesterone pills. Still having spotting and discharge. She states that she was told that she may need a D&C, and would also like her IUD removed and to stop the meds. She was told to see if we could do this sooner than they could, as they won't be able to do the procedure for another 1 1/2 mths. I discussed with pt that I could schedule a consult for her, but that I couldn't promise timeframe of scheduling a procedure, or even if that procedure would be recommended. She verbalized understanding and ultimately decides to call [facility] again. * Telephone Encounter - Alyssa Gamino MA - 03/23/2021 1050 EDT [phone] Had her son almost a yr ago has had an IUD and been progesterone and still having lots of cramping and constant discharge and spotting. Was hoping to get the IUD out and stop the progesterone and have an H D&C. documented in this encounter Plan of Treatment Not on file documented as of this encounter Visit Diagnoses Not on filedocumented in this encounter Care Teams Program Advocate Relationship Specialty Start Date End Date Mary Montana MD [address] [place] [phone] PCP - General 04/05/19 10/27/22 Mary Montana MD [address] [place] [phone] 03/25/19 documented as of this encounter
--- OUTSIDE RECORDS SUMMARY | 2024-09-15 00:27 | XMS_ITS | Encounter Summary ---
Author Organization [facility] Address [address] [place] [address] Care Team Providers Care Hobbing Press Operator Name Role Phone Mary Montana MD Unavailable Mary Montana MD Primary Care Provider [phone] Encounter Details Date Type Department Care Team (Latest Contact Info) Description 10/03/2021 17:49 EST - 10/03/2021 23:59 EST Hospital Encounter [facility] - Main [address] [phone] [facility] Dis[facility] Disposition: Home or [...] on filedocumented in this encounter Care Teams Hobbing Press Operator Relationship Specialty Start Date End Date Mary Montana MD [address] [place] [phone] PCP - General 04/05/19 10/27/22 Mary Montana MD [address] [place] [phone] 03/25/19 documented as of this encounter
--- OUTSIDE RECORDS SUMMARY | 2024-09-15 00:27 | XMS_ITS | Encounter Summary ---
Author Organization [facility] Address [address] [place] [address] Care Team Providers Care Toolmaker Name Role Phone Mary Montana MD Unavailable Mary Montana MD Primary Care Provider [phone] Reason for Visit * Reason Comments Pain lft thumb has pain a nd is hard to move it.pt would like x-ray Encounter Details Date Type Department Care Team (Late st Contact Info) Description 03/13/2022 11:15 EDT [facility] [address] [place], [place] [phone] Elysia Cornejo PA-C [address] [facility] [address] [place] [address] Thumb pain, left (Primary Dx) Social History Tobacco Use Types [...] Sign Reading Time Taken Comments Blood Pressure 110/78 03/13/2022 1133 EDT Pulse - - Temperature 36.8 ??C (98.2 ??F) 03/13/2022 1133 EDT Respiratory Rate 18 03/13/2022 1133 EDT Oxygen Saturation 98% 03/13/2022 1133 EDT Inhaled Oxygen Concentration - - Weight [...] this encounter Patient Instructions * Patient Instructions* Elysia Cornejo PA-C - 03/13/2022 11:15 EDT Images from the original note were not included. [facility] Patient Instructions Tendon Injury (Tendinopathy): Care Instructions Your Care Instructions Tendons are tough, flexible tissues that connect muscle to bone. A tendon can hurt or get torn fromoveruse or aging, especially tendons in the shoulder, elbow, wrist, hip, knee, or ankle. Tendon injuries may be called tendinopathy or tendinitis. Tendon injuries can occur from any motion you have to repeat in a job, sports, or daily activities. Tennis elbow is one common tendon injury. You can treat most tendon problems with ntmf-gyr-ncebdgc pain medicine, rest, changes in your activities, and physical therapy. Follow-up care is a mullins part of your treatment and safety. Be sure to make and go to all appointments, and call your doctor if you are having problems. It's also a good idea to know your test resultsand keep a list of the medicines you take. How can you care for yourself at home? ?? Rest the sore area. You may have to stop doing the activity that caused the tendon pain for a while. ?? Take an ttpx-dhs-pjxpzvs pain medicine, such as acetaminophen (Tylenol), ibuprofen (Advil, Motrin), or naproxen (Aleve). Read and follow all instructions on the label. ?? Do not take two or more pain medicines at the same time unless the doctor told you to. Many painmedicines have acetaminophen, which is Tylenol. Too much acetaminophen (Tylenol) can be harmful. ?? Put ice or a cold pack on the sore area for 10 to 20 minutes at a time. Try to do this every 1 to 2 hours for the next 3 days (when you are awake) or until any swelling goes down. Put a thin clothbetween the ice and your skin. ?? Prop up the sore area on a pillow when you ice it or anytime you sit or lie down during the next3 days. Try to keep it above the level of your heart. This will help reduce swelling. ?? Follow your doctor's advice for wearing and caring for a sling, splint, or cast. In some cases, you may wear one of these for a while to help your tendon heal. ?? Follow your doctor's advice for stretching and physical therapy. Gently move your joint through its full range of motion. This will prevent stiffness in your joint. ?? Go back to your activity slowly. Warm up before and stretch after the activity. You also can trymaking some changes. For example, if a sport caused your tendon pain, alternate the sport with another activity. If using a tool causes pain, switch hands or change your group care worker. Stop the activity if ithurts. After the activity, apply ice to prevent pain and swelling. ?? Do not smoke. Smoking can slow healing. If you need help quitting, talk to your doctor about stop-smoking programs and medicines. These can increase your chances of quitting for good. When should you call for help? Watch closely for changes in your health, and be sure to contact your doctor if: ? Your pain gets worse. ? You do not get better as expected. Where can you learn more? Go to https://www.LEPOW.net/[facility] or log into your [employer] account at https://VideoMining.GigaTrust.org Enter A157 in the search box to learn more about Tendon Injury (Tendinopathy): Care Instructions. Current as of: February 08, 2021?Content Version: 13.2 ?? [employer]. Care instructions adapted under license by [facility]. If you have questions about a medical condition or this instruction, always ask your healthcare professional. [employer] disclaims any warranty or liability for your use of this information. documented in this encounter Progress Notes * Lacie Solis LPN - 03/13/2022 1115 EDT CC/HPI: Covid Screening: In the last 72 hours, has the patient had: New or unusual cough, shortness of breath, new nasal congestion, sore throat, fever, chills, body aches, or new loss of taste or smell without a reasonable alternative diagnosis*? (If yes, assign to ARC)- no In the past 10 days, has the patient had a positive Covid test OR a confirmed close Covid exposure (<6ft for > 15mins in 24hr period)? (if yes, assign to ARC, regardless of vaccination status)-close covid exposure on Friday.home test yesterday neg *may be determined by RN or in discussion with available provider (MANAGER PROCUREMENT's and CCA's can defer to Charge Nurse to complete triage when appropriate) PCP: Mary Montana * Elysia Cornejo PA-C - 03/13/2022 1112 EDTAssociated Order(s): Application / Removal Splint Post-Procedure Diagnose(s): Thumb pain, left [facility] Chief Complaint(s): Pain (lft thumb has pain and is hard to move it.pt would like x-ray) HPI: Patient presents with atraumatic left thumb pain, patient points to the distal joint as the area ofdiscomfort, patient is right-handed, 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 Respiratory: Negative for cough. Objective: Examination: Vitals: BP 110/78 (BP Cuff Location: Right arm, BP Patient Position: Sitting, BP Cuff Sizes: Adult, long) Temp 36.8 ??C (98.2 ??F) (Oral) Resp 18 SpO2 98% Physical Exam Vitals reviewed. Constitutional: General: She is not in acute distress. Appearance: She is not ill-appearing. Pulmonary: Effort: No respiratory distress. Musculoskeletal: General: Tenderness present. No swelling. Comments: Patient reports tenderness at the distal joint of the left thumb, skin is intact, no ecchymosis, no snuffbox tenderness, no gross deformity, patient can flex and extend the left thumb but reports this is uncomfortable,+ radial pulse noted on left Neurological: Mental Status: She is alert. Application / Removal Splint Date/Time: 03/13/2022 13:01 Performed by: Elysia Cornejo PA-C Authorized by: Elysia Cornejo PA-C Consent: Verbal consent obtained. Consent given by: patient Patient understanding: patient states understanding of the procedure being performed Patient consent: the patient's understanding of the procedure matches consent given Location details: left thumb Splint type: static finger Supplies used: aluminum splint Post-procedure: The splinted body part was neurovascularly unchanged following the procedure. Patient tolerance: patient tolerated the procedure well with no immediate complications Comments: An aluminum fold over finger splint was applied Assessment & Plan: 1. 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,patient wear splint for the next few days, remove and increase activities as tolerated patient was also given home care recommendations in her AVS documented in this encounter Plan of Treatment Not on file documented as of this encounter Procedures Procedure Name Priority Date/Time Associated Diagnosis Comments APPLICATION / REMOVAL SPLINT Routine 03/13/2022 13:01 EDT Thumb pain, left XR FINGER LEFT 2 OR MORE VIEWS STAT 03/13/2022 11:59 EDT Thumb pain, left documented in this encounter Results * APPLICATION / REMOVAL SPLINT (03/13/2022 13:01 EDT) Narrative [facility] POINT [facility] CARE - 03/13/2022 13:01 EDT Elysia Cornejo PA-C ? 03/13/2022 13:04 Application / Removal Splint Date/Time: 03/13/2022 13:01 Performed by: Elysia Cornejo PA-C Authorized by: Elysia Cornejo PA-C Consent: Verbal consent obtained. Consent given by: patient Patient understanding: patient states understanding of the procedure being performed Patient consent: the patient's understanding of the procedure matches consent given Location details: left thumb Splint type: static finger Supplies used: aluminum splint Post-procedure: The splinted body part was neurovascularly unchanged following the procedure. Patient tolerance: patient tolerated the procedure well with no immediate complications Comments: An aluminum fold over finger splint was applied Elysia Cornejo PA-C PROCEDURE/MINOR SURGICAL ORDE DAILY Final Result [facility] POINT OF CARE * XR FINGER LEFT 2 OR MORE VIEWS (03/13/2022 11:59 EDT) Anatomical Region Laterality Modality Upper Extremities Left Computed Radio graphy 03/13/2022 12:0 3 EDT Impressions 03/13/2022 12:03 EDT No acute osseous or articular abnormality. Narrative 03/13/2022 12:03 EDT INDICATION: atraumatic L thumb pain. pain at base of distal phalanx TECHNIQUE: ??3 views left thumb per COMPARISON: None. FINDINGS: The alignment is anatomic. No fracture is detected. The joint spaces are preserved. No erosions are seen. Procedure Note Charlie Valdez MD - 03/13/2022 INDICATION: atraumatic L thumb pain. pain at base of distal phalanx TECHNIQUE: 3 views left thumb per COMPARISON: None. FINDINGS: The alignment is anatomic. No fracture is detected. The jointspaces are preserved. No erosions are seen. IMPRESSION No acute osseous or articular abnormality. us Elysia Cornejo PA-C IMG DIAGNOSTIC IMAGING ORDERA BLES Final Result documented in this encounter Visit Diagnoses Diagnosis Thumb pain, left- Primary documented in this encounter Discontinued Medications Medication Sig Discontinue Reason Start Date End Da te cholecalciferol, Vitamin D3, 1,000 unit tablet Take 1,000 Units by mouth daily. Therapy completed 03/13/2022 ibuprofen (ADVIL) 200 mg tablet Take 400 mg by mouth every 6 hours as needed for Pain. Therapy completed 03/13/2022 documented as of this encounter Care Teams Toolmaker Relationship Specialty Start Date End Date Mary Montana MD [address] [place] [phone] PCP - General 04/05/19 10/27/22 Mary Montana MD [address] [place] [phone] 03/25/19 documented as of this encounter
--- OUTSIDE RECORDS SUMMARY | 2024-09-15 00:27 | XMS_ITS | Encounter Summary ---
Author Organization [facility] Address [address] [place] [address] Care Team Providers Care Photo Print Specialist Name Role Phone Mary Montana MD Unavailable Mary Montana MD Primary Care Provider [phone] Livier Valdez NP Primary Care Provider [phone] Encounter Details Date Type Department Care Team (Late st Contact Info) Description 04/12/[address] [facility] Pathology & Laboratory Medicine - [facility] [address], [place] [id number] Outr Resulting Lab, Provider Social History Tobacco [...] Comments CHLAMYDIA/N. GONORRHOEAE AMPLIFIED NUCLEIC ACID Routine 04/12/2021 12:00 EDT documented in this encounter Results * CHLAMYDIA/N. GONORRHOEAE AMPLIFIED RNA (04/12/2021 12:00 EDT) Neisseria gonorrhoeae Result Negative Negative 04/13/2021 14:32 EDT [facility] Chlamydia trachomatis Result Negative Negative 04/13/2021 14:32 EDT [facility] Swab ENTIRE VAGINA / Unknown 04/12/2021 12:00 EDT 04/12/2021 21:48 EDT us Provider Outr Resulting Lab MICROBIOLOGY - GENER AL ORDERABLES Final Result [facility] [address] [place] [address] documented in this encounter Visit Diagnoses Not on filedocumented in this encounter Additional Health Concerns Infection Onset Date Last Indicated Resolved Time R/O COVID-19 04/16/2023 04/16/2023 04/16/2023 23:3 7 EDT COVID-19 04/16/2023 04/16/2023 05/06/2023 22:1 5 EDT documented as of this encounter Care Teams Photo Print Specialist Relationship Specialty Start Date End Date Mary Montana MD [address] [place] [id number] PCP - General 04/05/19 10/27/22 Livier Valdez NP [address] [place] [address] PCP - General Family Medicine - Primary Care 10/28/22 Mary Montana MD [address] [place] [address] 03/25/19 documented as of this encounter
--- OUTSIDE RECORDS SUMMARY | 2024-09-15 00:27 | XMS_ITS | Encounter Summary ---
Author Organization [facility] Address [address] [place] [address] Care Team Providers Care Help Desk Assistant Name Role Phone Mary Montana MD Unavailable Lviier Valdez NP Primary Care Provider [phone] Reason for Referral * Referral (Routine/Next Available) - Closed Specialty Diagnoses / Procedures Referred By Contac t Referred To Contact Pain Medicine Diagnoses Lumbar disc herniation with radiculopathy Procedures EPIDURAL STEROID INJECTION ON THE SPINE WITH FLUOROSCOPY Lynda Wolfe PA-C Phone: tel: fax: [facility] Interventional Pain [address] [place] [address] Phone: tel: fax: Referral ID Status Reason Start Date Expiration Date Visits Re quested Visits Authorized [id number] Closed 12/27/2022 1 1 Reason for Visit * Reason Comments New Patient Visit New Patient Visit * Referral (Routine) - Authorization Not Required Specialty Diagnoses / Procedures Referred By Contac t Referred To Contact Diagnoses Low back pain, unspecified Anuja Chavira PA Phone: tel: fax: [facility] Sp[facility] [address] [place] [address] Phone: tel: fax: Referral ID Status Reason Start Date Expiration Date Visits Requested Visits Authorized [id number] Authorization Not Required 1 1 Encounter Details Date Type Department Care Team (Late st Contact Info) Description 12/27/2022 11:15 EDT Office Visit [facility] [address] [place], [place] [address] Lynda Wolfe PA-C [address] [facility] [address] [place] [address] Lumbar disc herniation with radiculopathy (Primary Dx) Social History Tobacco Use [...] 11:16 EDT documented as of this encounter Last Filed Vital Signs Vital Sign Reading Time Taken Comments Blood Pressure 108/62 12/27/2022 1121 EDT Pulse 73 12/27/2022 1121 EDT Temperature - - Respiratory Rate - - Oxygen Saturation 98% 12/27/2022 1121 EDT Inhaled Oxygen Concentration - - Weight 97.3 kg (214 lb 9 oz) 12/27/2022 1121 EDT Height 167.6 cm (5' 6) 12/27/2022 1121 EDT Body Mass Index 34.63 12/27/2022 1121 EDT documented in this encounter Functional Status [...] Progress Notes * Lynda Wolfe PA-C - 12/27/2022 1115 EDT 12/27/2022 PATIENT: Jonathon Hall Primary Care Provider: Livier Valdez [address] [facility] [address] Referring Provider: LAKSHMI Marshall [address] [place] [address] CHIEF COMPLAINT New Patient Visit of the Lower Back and New Patient Visit of the Left Leg HISTORY OF PRESENT ILLNESS Jonathon Hall is a very pleasant 37 y.o. female with a PMH of fatty liver who was referred by Anuja Chavira PA-C regarding left sided lumbo-pelvic pain which developed during 3 years ago. Pain intermittently radiates into the left foot With numbness. She reports dyspareunia. She attended physical therapy. HPI Treatments to date for this complaint have included: [] Physical therapy [] child care group leader or massage therapy [] Home exercise program [...] reviewed and are negative. DIAGNOSTIC DATA VITALS height is 167.6 cm (66) and weight is 97.3 kg (214 lb 9 oz). Her blood pressure is 108/62 and her pulse is 73. Her oxygen saturation is 98%. PHYSICAL EXAM Nursing note and vitals reviewed.Vitals [...] normal. Behavior: Behavior normal. Judgment: Judgment normal. IMAGING I have personally reviewed and interpreted the direct CT imaging and the findings were discussed indetail with the patient using models and images. CT abd/pelvis 09/26/22: There is a diffuse disc bulge at L4-5 with mild central canal stenosis and mild foraminal stenosis. Otherwise WNL. S/p tubal ligation. Large left ovarian cyst. DIAGNOSIS The encounter diagnosis was Lumbar disc herniation with radiculopathy. ASSESSMENT/PLAN Jonathon was seen today for new patient visit and new patient visit. Diagnoses and all orders for this visit: Lumbar disc herniation with radiculopathy - EPIDURAL STEROID INJECTION ON THE SPINE WITH FLUOROSCOPY; Future The patient's physical exam is suggestive of a left L5 radiculopathy which is consistent with a diffuse disc bulge at L4-[address] We discussed options. She does not wish to take medication. She has completed PT without benefit. We will attempt a left L4-5 TF BUDDY and have her follow up upon completion. If she experiences incomplete or temporary relief, we will order MRI and additional x-ray views. The risks and benefits of these treatments were discussed today in detail. The patient expressed understanding of these risks and is agreeable with proceeding with this plan of care. Lynda Wolfe PA-C [facility] Orthopedics [facility] Spine Medicine [address] [place] [address] documented in this encounter Plan of Treatment Scheduled Orders Name Type Priority Associated Diagnoses Orde r Schedule EPIDURAL STEROID INJECTION ON THE SPINE WITH FLUOROSCOPY Procedures Routine Lumbar disc herniation with radiculopathy Expected: 12/27/2022 (Approximate), Expires: 12/28/2023 documented as of this encounter Visit Diagnoses Diagnosis Lumbar disc herniation with radiculopathy- Primary Displacement of lumbar intervertebral disc without myelopathy documented in this encounter Care Teams Help Desk Assistant Relationship Specialty Start Date End Date Livier Valdez NP [address] [place], [place] [address] PCP - General Family Medicine - Primary Care 10/28/22 Mary Montana MD [address] [place] [phone] 03/25/19 documented as of this encounter
--- OUTSIDE RECORDS SUMMARY | 2024-09-15 00:27 | XMS_ITS | Encounter Summary ---
Author Organization [facility] Address [address] [place] [address] Care Team Providers Care Community Health Educator Name Role Phone Mary Montana MD Unavailable Mary Montana MD Primary Care Provider [phone] Encounter Details Date Type Department Care Team (Late st Contact Info) Description 08/23/2022 Results Only [facility] Laboratory Services - [facility] [address] [place] [address] Livier Valdez, OPERATIONS COORDINATOR [address] [place], [place] [id number] Social History Tobacco Use Types Packs/Day Years [...] Diagnosis Comments POCT URINE DIPSTICK, CLINITEK Routine 08/23/2022 8:43 EST documented in this encounter Results * (ABNORMAL) POCT URINE DIPSTICK, CLINITEK (08/23/2022 8:43 EST) Color (Urine) Yellow YELLOW [facility] Clarify (Urine) Clear CLEAR [facility] Glucose (Urine) Negative NEGATIVE [facility] Bilirubin (Urine) 1+(A) NEGATIVE [facility] Ketones (Urine) Negative NEGATIVE [facility] Specific Blanco (Urine) >=1.030(H) [facility] Occult Blood (Urine) 2+(A) NEGATIVE [facility] pH (Urine) 6.0 [facility] Protein (Urine) 2+(A) NEGATIVE [facility] Urobilinogen (Urine) 0.2 0.2 - 1.0 EU/dL [facility] Nitrite (Urine) Negative NEGATIVE [facility] Leukocytes (Urine) 1+(A) NEGATIVE [facility] 08/23/2022 8:43 EST us Livier Valdez OPERATIONS COORDINATOR POINT OF CARE TEST ORDERABLES Fi nal Result [facility] [address] [place] [address] documented in this encounter Visit Diagnoses Not on filedocumented in this encounter Care Teams Community Health Educator Relationship Specialty Start Date End Date Mary Montana MD [address] [place] [address] PCP - General 04/05/19 10/27/22 Mary Montana MD [address] [place] [address] 03/25/19 documented as of this encounter
--- OUTSIDE RECORDS SUMMARY | 2024-09-15 00:27 | XMS_ITS | Encounter Summary ---
Author Organization [facility] Address [address] [place] [address] Care Team Providers Care Historical Records Administrator Name Role Phone Mary Montana MD Unavailable Mary Montana MD Primary Care Provider [phone] Encounter Details Date Type Department Care Team (Late st Contact Info) Description 08/23/2022 Results Only [facility] Laboratory Services - [facility] [address] [place] [address] Livier Valdez, LIQUEFACTION SUPERVISOR [address] [place], [place] [phone] Social History Tobacco Use Types Packs/Day Years [...] Date/Time Associated Diagnosis Comments COMPLETE BLOOD COUNT WITH DIFFERENTIAL (AUTO) Routine 08/23/2022 10:04 EST documented in this encounter Results * (ABNORMAL) COMPLETE BLOOD COUNT WITH DIFFERENTIAL (AUTO) (08/23/2022 10:04 EST) WBC 8.3 4.5 - 10.5 x10e3/uL [facility] Lymphocytes 18.3(L) 20.5 - 51.1 % [facility] Monocytes 14.4(H) 1.7 - 9.3 % [facility] Granulocytes 67.3 42.2 - 75.2 % [facility] Lymph # 1.5 1.2 - 3.4 x10e3/uL [facility] Green # 1.2(H) 0.1 - 0.6 x10e3/uL [facility] Gran # 5.6 1.4 - 6.5 x10e3/uL [facility] RBC 5.08 4.00 - 6.00 x10e6/uL [facility] HGB 13.6 11.0 - 18.0 g/dL [facility] HCT 44.3 35.0 - 60.0 % [facility] MCV 87.2 80.0 - 99.9 fL [facility] MCH 26.7(L) 27.0 - 31.0 pg [facility] MCHC 30.6(L) 33.0 - 37.0 g/dL [facility] RDW 14.2(H) 11.6 - 13.7 % [facility] PLT 332 150 - 450 x10e3/uL [facility] MPV 7.7(L) 7.8 - 11.0 fL [facility] 08/23/2022 10:0 4 EST us Livier Valdez LIQUEFACTION SUPERVISOR HEMATOLOGY & PF4 ORDERABLES Gissell bradley Result [facility] [address] [place] [address] documented in this encounter Visit Diagnoses Not on filedocumented in this encounter Care Teams Historical Records Administrator Relationship Specialty Start Date End Date Mary Montana MD [address] [place] [phone] PCP - General 04/05/19 10/27/22 Mary Montana MD [address] [place] [address] 03/25/19 documented as of this encounter
--- OUTSIDE RECORDS SUMMARY | 2024-09-15 00:27 | XMS_ITS | Encounter Summary ---
Author Organization [facility] Address [address] [place] [address] Care Team Providers Care Construction Flagger Name Role Phone Mary Montana MD Unavailable Mary Montana MD Primary Care Provider [phone] Encounter Details Date Type Department Care Team (Late st Contact Info) Description 09/12/2022 Orders Only [facility] CT Scan [address] [place], [place] [address] Pauly Taylor Social History Tobacco Use Types Packs/Day Years [...] on filedocumented in this encounter Care Teams Construction Flagger Relationship Specialty Start Date End Date Mary Montana MD [address] [place] [address] PCP - General 04/05/19 10/27/22 Mary Montana MD [address] [place] [address] 03/25/19 documented as of this encounter
--- OUTSIDE RECORDS SUMMARY | 2024-09-15 00:27 | XMS_ITS | Encounter Summary ---
Author Organization [facility] Address [address] [place] [address] Care Team Providers Care Folding Machine Tender Name Role Phone Mary Montana MD Unavailable Livier Valdez UPPER CUTTER Primary Care Provider [phone] Reason for Referral * HEEL BURNISHER (Routine/Next Available) - Authorization Not Required Specialty Diagnoses / Procedures Referred By Contac t Referred To Contact Diagnoses Unspecified ovarian cyst, left side Procedures US PELVIS TRANSVAGINAL Livier Valdez NP [address] [place] [address] Phone: tel: fax: [facility] Referral ID Status Reason Start Date Expiration Date Visits Requested Visits Authorized [id number] Authorization Not Required 10/25/2022 1 1 Reason for Visit * HEEL BURNISHER (Routine/Next Available) - Authorization Not Required Specialty Diagnoses / Procedures Referred By Contac t Referred To Contact Diagnoses Unspecified ovarian cyst, left side Procedures US PELVIS TRANSVAGINAL Livier Valdez NP [address] [place] [address] Phone: tel: fax: [facility] Referral ID Status Reason Start Date Expiration Date Visits Requested Visits Authorized [id number] Authorization Not Required 10/25/2022 1 1 Encounter Details Date Type Department Care Team (Latest Contact Info) Description 10/31/2022 10:17 EDT - 10/31/2022 23:59 EDT Hospital Encounter [facility] Ultrasound [address] [place] [address] Unspecified ovarian cyst, left side Discharge Disposition: [...] Diagnosis Comments US PELVIS TRANSVAGINAL COMPLETE Routine 10/31/2022 10:53 EDT Unspecified ovarian cyst, left side documented in this encounter Results * US PELVIS TRANSVAGINAL (10/31/2022 10:53 EDT) Anatomical Region Laterality Modality Pelvis Ultrasound 10/31/2022 12:1 9 EDT Impressions 10/31/2022 12:19 EDT 1. ??MILDLY COMPLEX 3.4 CM RIGHT OVARIAN CYST, new or enlarged compared to one month prior. Favor this is a physiologic cyst in a patient of this age. Follow-up ultrasound recommended in 3 months to ensure resolution. 2. ??Ovoid 2.0 cm left ovarian cyst, without significant internal complexity, decreased in size compared to one month prior. Likely benign given spontaneous regression. 3. ??IUD in expected position. 4. ??Additional findings detailed above. Per [facility] policy, this study has been entered into the Lat[employer] Critical Findings follow-up system to ensure follow-up of a Noncritical finding.. Narrative 10/31/2022 12:19 EDT US PELVIS TRANSVAGINAL ?? Signs and Symptoms/Comments: ??Eval for resolution of left ovarian cyst seen on CT 09/26/22. Comparison: Ultrasound pelvis on 08/06/2021. CT abdomen pelvis on 09/26/2022. Technique: Transvaginal ultrasound was performed. FINDINGS: Uterus: ?? Orientation: Retroverted. Size: 7.8 cm x 4.7 cm x 6.4 cm Findings: IUD in expected position within the endometrial canal. Cervix: Normal. Endometrium: Findings: Endometrial lining partially obscured by shadowing IUD, but appears otherwise unremarkable. Trace anechoic fluid noted within the endometrial canal. Thickness: 4.0 mm Premenopausal (per patient) Ovaries: ?? Right ovary: Size: 4.1 cm x 4.0 cm x 3.7 cm. Volume : 31.7 cc. Doppler flow: Color Doppler flow is grossly present, however waveforms were not assessed. Findings: Ovoid mildly complex 3.4 cm right ovarian cyst, with a single thin internal septation, new or enlarged compared to one month prior. Left ovary: Size: 2.7 cm x 2.0 cm x 1.9 cm. Volume : 5.2 cc. Doppler flow: Color Doppler flow is grossly present, however waveforms were not assessed. Findings: Ovoid 2.0 cm left ovarian cyst, without significant internal complexity, which appears to have decreased in size from 4.0 cm one month prior. Cul-de-sac: No free fluid. us Livier Valdez UPPER CUTTER IMG US OB ORDERABLES Edited documented in this encounter Visit Diagnoses Diagnosis Unspecified ovarian cyst, left side documented in this encounter Care Teams Folding Machine Tender Relationship Specialty Start Date End Date Livier Valdez, UPPER CUTTER [address] [place], [place] [id number] PCP - General Family Medicine - Primary Care 10/28/22 Mary Montana MD [address] [place] [address] 03/25/19 documented as of this encounter
--- OUTSIDE RECORDS SUMMARY | 2024-09-15 00:27 | XMS_ITS | Encounter Summary ---
Author Organization [facility] Address [address] [place] [address] Care Team Providers Care Documentation Liaison Name Role Phone Mary Montana MD Unavailable Mary Montana MD Primary Care Provider [phone] Reason for Visit * Reason Comments Back Pain Encounter Details Date Type Department Care Team (Late st Contact Info) Description 08/05/2021 10:00 EST Walk-In [facility] [address] [place] [id number] Grace Rivers, MINCING MACHINE OPERATOR [address] [place] [id number] Acute right-sided back pain, unspecified back location (Primary Dx) Social History Tobacco Use Types [...] Sign Reading Time Taken Comments Blood Pressure 123/68 08/05/2021 0937 EST Pulse 81 08/05/2021 0937 EST Temperature 36.7 ??C (98 ??F) 08/05/2021 0937 EST Respiratory Rate - - Oxygen Saturation 99% 08/05/2021 0937 EST Inhaled Oxygen Concentration - - Weight [...] this encounter Patient Instructions * Patient Instructions* Grace Rivers - 08/05/2021 10:00 EST Discharged to [facility] emergency department documented in this encounter Progress Notes * Lacie Solis LPN - 08/05/2021 1000 EST CC/HPI: Covid Screening: In the last 72 hours, has the patient had: New or unusual cough, shortness of breath, new nasal congestion, sore throat, fever, chills, body aches, or new loss of taste or smell without a reasonable alternative diagnosis*? (If yes, assign patient to ARC schedule) no In the past 14 days, has the patient had a confirmed close Covid exposure (<6ft for > 15mins in 24hr period)? no In the past 14 days, has the patient returned from international travel? no Is the patient fully Covid vaccinated? (If close exposure or international travel but fully vaccinated, remains NRC. If close exposure or international travel and unvaccinated, assign to ARC) yes perpt *may be determined by RN or in discussion with available provider (PYTHON DJANGO DEVELOPER's and CCA's can defer to Charge Nurse to complete triage when appropriate) PCP: Mary Montana * Grace Rivers - 08/05/2021 1000 EST [facility] Express Care Chief Complaint(s): Chief Complaint Patient presents with ??? Back Pain Assessment & Plan: Jonathon was seen today for back pain. Diagnoses and all orders for this visit: Acute right-sided back pain, unspecified back location - POCT URINE DIPSTICK, VISUAL READ Jonathon Hall is a 36 y.o. yr old female with R side back pain radiating to R groin and abdomen DDx include: kidney stone, pyelonephritis, muscle strain Urine dip with blood and leuks. There is R side CVA tenderness. Suspiscion for kidney stone. Patient requires further assessment in the emergency department, she is stable for transport by POV. Patient verbalizes understanding and agreement with this plan of care. Report is called to [facility] emergency department. HPI: Jonathon Hall is a 36 y.o. yr old female who is here with chief complaint of right mid and lower back pain that radiates to R groin and lower abdomen. Pain has been present since 08/01/2021, she thought at first this was related to M/S low back and hip pain, she had a chiropractic adjustment on 08/01, but pain has progressed, described as worse than labor. She has been using ice and has taken ibuprofen and acetaminophen with some relief, but as soon as these meds wear off, the pain returns. Pain aggravated by movement, she is walking hunched over which she says is not typical for her. Shenotes the pain was so severe that she had slight urinary dribbling on one occasion since onset of symptoms. PSH tubal ligation She notes associated nausea due to pain, no fever. She denies hematuria, dysuria, increased urinaryfrequency or urgency. No history of kidney stones. Social History Tobacco Use Smoking Status Former Smoker Smokeless Tobacco Never Used I have reviewed current problem list, current medications and allergies. ROS: Review of Systems Constitutional: Negative for chills and fever. Musculoskeletal: Positive for back pain. See HPI for details Objective: Vitals and nursing notes reviewed Examination: BP 123/68 Pulse 81 Temp 36.7 ??C (98 ??F) (Skin) SpO2 99% Physical Exam Vitals and nursing note reviewed. Constitutional: General: She is not in acute distress. Appearance: She is not toxic-appearing. Comments: Appears uncomfortable, favoring R side of back with any movement Abdominal: Tenderness: There is right CVA tenderness. Musculoskeletal: Comments: R mid and low back - no erythema, no rash, no ecchymosis, patient prefers not to perform F/E of spine due to reported pain. Neurological: Mental Status: She is alert. Psychiatric: Behavior: Behavior is cooperative. Results for orders placed or performed in visit on 08/05/21 POCT URINE DIPSTICK, VISUAL READ Result Value Ref Range Color, UA Yellow Clarity, UA Clear Glucose, UA Negative . mg/dL Bilirubin, UA Negative Negative Ketones, UA Negative . mg/dL Spec Grav, UA >1.030 (A) 1.005 - 1.030 Blood, UA 2+ (A) Negative pH, UA 5.5 4.6 - 8.0 Protein, UA Negative . mg/dL Urobilinogen, UA 0.2 0.2 - 1.0 E.U./dL Nitrite, UA Negative . Leuk Esterase 1+ (A) Negative Comment This note may be in part documented using [employer] dictation software. Please forgive any errors, omissions or typos that may result from use of dictation. documented in this encounter Plan of Treatment Not on file documented as of this encounter Procedures Procedure Name Priority Date/Time Associated Diagnosis Comments POCT URINE DIPSTICK, VISUAL READ Routine 08/05/2021 Acute right-sided back pain, unspecified back location documented in this encounter Results * (ABNORMAL) POCT URINE DIPSTICK, VISUAL READ (08/05/2021) Color, UA Yellow [facility] POIN T OF CARE Clarity, UA Clear [facility] PO INT OF CARE Glucose, UA Negative . mg/dL [facility] PO INT OF CARE Bilirubin, UA Negative Negative [facility] POINT OF CARE Ketones, UA Negative . mg/dL [facility] PO INT OF CARE Spec Grav, UA >1.030(A) 1.005 - 1.030 [facility] POINT OF CARE Blood, UA 2+(A) Negative [facility] POIN T OF CARE pH, UA 5.5 4.6 - 8.0 [facility] POIN T OF CARE Protein, UA Negative . mg/dL [facility] PO INT OF CARE Urobilinogen, UA 0.2 0.2 - 1.0 E.U./dL [facility] POINT OF CARE Nitrite, UA Negative . [facility] PO INT OF CARE Leuk Esterase 1+(A) Negative [facility] POINT OF CARE Comment [facility] POIN T OF CARE Urine URINE SPECIMEN COLLECTION, CLEAN CATCH / Unknown 08/05/2021 Grcae Rivers MINCING MACHINE OPERATOR POINT OF CARE TEST ORDERABLES F inal Result [facility] documented in this encounter Visit Diagnoses Diagnosis Acute right-sided back pain, unspecified back location- Primary documented in this encounter Historical Medications * This list may reflect changes made after this encounter. ibuprofen (ADVIL) 200 mg tablet Take 400 mg by mouth every 6 hours as needed for Pain. 03/13/2022 added in this encounter Care Teams Documentation Liaison Relationship Specialty Start Date End Date Mary Montana MD [address] [place] [address] PCP - General 04/05/19 10/27/22 Mary Montana MD [address] [place] [phone] 03/25/19 documented as of this encounter
--- OUTSIDE RECORDS SUMMARY | 2024-09-15 00:27 | XMS_ITS | Encounter Summary ---
Author Organization [facility] Address [address] [place] [address] Care Team Providers Care Health Promotion Specialist Name Role Phone Mary Montana MD Unavailable Mary Montana MD Primary Care Provider [phone] Livier Valdez NP Primary Care Provider [phone] Encounter Details Date Type Department Care Team (Late st Contact Info) Description 08/13/2022 Lab Requisition [facility] Pathology & Laboratory Medicine - [facility] [address] [place], [place] [id number] Outr Resulting Lab, Provider Social History Tobacco [...] Associated Diagnosis Comments MOLECULAR VAGINITIS/VAGINOSIS ASSAY Routine 08/13/2022 14:43 EST documented in this encounter Results * MOLECULAR VAGINITIS/VAGINOSIS ASSAY (08/13/2022 14:43 EST) Malika Species Negative Negative 13:27 EST [facility] Malika glabrata Negative Negative 08/14/2022 13:27 EST [facility] Trichomonas Vaginalis Negative Negative 08/14/2022 13:27 EST [facility] BV (Bacterial vaginosis) Negative Negative 08/14/2022 13:27 EST [facility] Swab ENTIRE VAGINA / Unknown 08/13/2022 14:43 EST 08/13/2022 22:57 EST us Provider Outr Resulting Lab MICROBIOLOGY - GENER AL ORDERABLES Final Result [facility] [address] [place] [address] documented in this encounter Visit Diagnoses Not on filedocumented in this encounter Additional Health Concerns Infection Onset Date Last Indicated Resolved Time R/O COVID-19 04/16/2023 04/16/2023 04/16/2023 23:3 7 EDT COVID-19 04/16/2023 04/16/2023 05/06/2023 22:1 5 EDT documented as of this encounter Care Teams Health Promotion Specialist Relationship Specialty Start Date End Date Mary Montana MD [address] [place] [address] PCP - General 04/05/19 10/27/22 Livier Valdez, MARLINE [address] [place] [address] PCP - General Family Medicine - Primary Care 10/28/22 Mary Montana MD [address] [place] [address] 03/25/19 documented as of this encounter
--- OUTSIDE RECORDS SUMMARY | 2024-09-15 00:27 | XMS_ITS | Encounter Summary ---
Author Organization [facility] Address [address] [place] [address] Care Team Providers Care Leaf Stripper Name Role Phone Mary Montana MD Unavailable Mary Montana MD Primary Care Provider [phone] Reason for Referral * Radiology Services (Routine/Next Available) - Authorization Not Required Specialty Diagnoses / Procedures Referred By Contac t Referred To Contact Diagnoses Pain in left hip Procedures XR LUMBAR SPINE 2-3 VIEWS Anuja Chavira PA [address] [place] [address] Phone: tel: fax: [facility] Referral ID Status Reason Start Date Expiration Date Visits Requested Visits Authorized [id number] Authorization Not Required 01/01/2022 1 1 * Radiology Services (Routine/Next Available) - Authorization Not Required Specialty Diagnoses / Procedures Referred By Contac t Referred To Contact Diagnoses Pain in left hip Procedures XR HIP LEFT 2-3 VIEWS, OPTIONAL PELVIS Anuja Chavira PA [address] [place] [address] Phone: tel: fax: [facility] Referral ID Status Reason Start Date Expiration Date Visits Requested Visits Authorized [id number] Authorization Not Required 01/01/2022 1 1 Reason for Visit * Radiology Services (Routine/Next Available) - Authorization Not Required Specialty Diagnoses / Procedures Referred By Kenn deluna Referred To Contact Diagnoses Pain in left hip Procedures XR HIP LEFT 2-3 VIEWS, OPTIONAL PELVIS Anuja Chavira PA [address] [place] [address] Phone: tel: fax: [facility] Referral ID Status Reason Start Date Expiration Date Visits Requested Visits Authorized [id number] Authorization Not Required 01/01/2022 1 1 Encounter Details Date Type Department Care Team (Latest Contact Info) Description 01/09/2022 8:41 EDT - 01/09/2022 23:59 EDT Hospital Encounter [facility] [address] [place], [place] [id number] Pain in left hip Discharge Disposition: Home or Self Care Social [...] Date/Time Associated Diagnosis Comments XR LUMBAR SPINE 2-3 VIEWS Routine 01/09/2022 9:14 EDT Pain in left hip XR HIP LEFT 2-3 VIEWS, OPTIONAL PELVIS Routine 01/09/2022 9:14 EDT Pain in left hip documented in this encounter Results * XR LUMBAR SPINE 2-3 VIEWS (01/09/2022 9:14 EDT) Anatomical Region Laterality Modality Spine Computed Radiogr aphy 01/09/2022 9:41 EDT Impressions 01/09/2022 9:41 EDT Early degenerative spondylosis Narrative 01/09/2022 9:41 EDT INDICATION: Low Back Pain TECHNIQUE: Two-view lumbar spine. COMPARISON: None FINDINGS: There are 5 nonrib-bearing, lumbar type vertebral bodies. The vertebral body heights are maintained. No fracture is detected. There is minimal disc space narrowing at L2-L3, L3-L4 and L5-S1. The facet joints appear intact. Procedure Note Charlie Valdez MD - 01/09/2022 INDICATION: Low Back Pain TECHNIQUE: Two-view lumbar spine. COMPARISON: None FINDINGS: There are 5 nonrib-bearing, lumbar type vertebral bodies. The vertebralbody heights are maintained. No fracture is detected. There is minimaldisc space narrowing at L2-L3, L3-L4 and L5-S1. The facet joints appearintact. IMPRESSION Early degenerative spondylosis us Anuja MARTINS IMG DIAGNOSTIC IMAGING ORDERABLE S Final Result * XR HIP LEFT 2-3 VIEWS, OPTIONAL PELVIS (01/09/2022 9:14 EDT) Anatomical Region Laterality Modality Lower Extremities Left Computed Radio graphy 01/09/2022 10:5 8 EDT Impressions 01/09/2022 10:58 EDT No acute osseous abnormality detected. Narrative 01/09/2022 10:58 EDT INDICATION: Left Hip Pain TECHNIQUE: AP and frog-leg lateral views of the left hip and an AP view of the contralateral right hip for comparison. COMPARISON: None. FINDINGS: The left hip joint space is preserved. No acute fracture is seen. The alignment is anatomic. The included portion of the bony pelvis is intact. An IUD is noted. Procedure Note Charlie Valdez MD - 01/09/2022 INDICATION: Left Hip Pain TECHNIQUE: AP and frog-leg lateral views of the left hip and an AP view ofthe contralateral right hip for comparison. COMPARISON: None. FINDINGS: The left hip joint space is preserved. No acute fracture isseen. The alignment is anatomic. The included portion of the bony pelvisis intact. An IUD is noted. IMPRESSION No acute osseous abnormality detected. Anuja HAMPTON DIAGNOSTIC IMAGING ORDERABLE S Final Result documented in this encounter Visit Diagnoses Diagnosis Pain in left hip Pain in joint, pelvic region and thigh documented in this encounter Care Teams Leaf Stripper Relationship Specialty Start Date End Date Mary Montana MD [address] [place] [address] PCP - General 04/05/19 10/27/22 Mary Montana MD [address] [place] [address] 03/25/19 documented as of this encounter
--- OUTSIDE RECORDS SUMMARY | 2024-09-15 00:28 | XMS_ITS | Encounter Summary ---
Author Organization [facility] Address [address] [place] [address] Care Team Providers Care User Interface Designer Name Role Phone Mary Montana MD Unavailable Mary Montana MD Primary Care Provider [phone] Livier Valdez NP Primary Care Provider [phone] Encounter Details Date Type Department Care Team (Late st Contact Info) Description 10/10/2020 Lab Requisition [facility] Pathology & Laboratory Medicine - [facility] [address] [place], [place] [phone] Outr Resulting Lab, Provider Social History Tobacco [...] Comments CHLAMYDIA/N. GONORRHOEAE AMPLIFIED NUCLEIC ACID Routine 10/10/2020 12:00 EST documented in this encounter Results * CHLAMYDIA/N. GONORRHOEAE AMPLIFIED RNA (10/10/2020 12:00 EST) Neisseria gonorrhoeae Result Negative Negative 10/11/2020 13:59 EST [facility] Chlamydia trachomatis Result Negative Negative 10/11/2020 13:59 EST [facility] Swab ENTIRE WALL OF CERVIX / Unknown 10/10/2020 12:00 EST 10/10/2020 23:11 EST us Provider Outr Resulting Lab MICROBIOLOGY - GENER AL ORDERABLES Final Result Performing Organization Address City/State/[facility] Co de Phone Number [facility] [address] [place] [address] documented in this encounter Visit Diagnoses Not on filedocumented in this encounter Additional Health Concerns Infection Onset Date Last Indicated Resolved Time R/O COVID-19 04/16/2023 04/16/2023 04/16/2023 23:3 7 EDT COVID-19 04/16/2023 04/16/2023 05/06/2023 22:1 5 EDT documented as of this encounter Care Teams User Interface Designer Relationship Specialty Start Date End Date Mary Montana MD [address] [place] [address] PCP - General 04/05/19 10/27/22 Livier Valdez, MARLINE [address] [place] [address] PCP - General Family Medicine - Primary Care 10/28/22 Mary Montana MD [address] [place] [address] 03/25/19 documented as of this encounter
--- OUTSIDE RECORDS SUMMARY | 2024-09-15 00:28 | XMS_ITS | Encounter Summary ---
Author Organization [facility] Address [address] [place] [address] Care Team Providers Care Entry Level Lab Technician Name Role Phone Mary Montana MD Unavailable Mary Montana MD Primary Care Provider [phone] Livier Valdez NP Primary Care Provider [phone] Encounter Details Date Type Department Care Team (Late st Contact Info) Description 11/12/2020 Lab Requisition [facility] Pathology & Laboratory Medicine - [facility] [address] [place], [place] [phone] Outr Resulting Lab, Provider Social History Tobacco [...] Procedure Name Priority Date/Time Associated Diagnosis Comments ZZCOVID-19 TEST [facility] PCR Today 11/12/2020 10:30 EDT COVID-19 TESTING Routine 11/12/2020 10:3 0 EDT documented in this encounter Results * COVID-19 TEST [facility] PCR (11/12/2020 10:30 EDT) Swab ENTIRE NASOPHARYNX / Unknown 11/12/2020 10:30 EDT 11/12/2020 17:14 EDT us Provider Outr Resulting Lab MICROBIOLOGY - GENER AL ORDERABLES Final Result [facility] [address] [place] [id number] * COVID-19 TESTING (11/12/2020 10:30 EDT) COVID-19 rt-PCR Result Negative Negative 11/13/2020 11:15 EDT [facility] Comment: This test has not been FDA [...] under section 564(b)(1) of Act, 21 U.S.C ?? 360bbb-3(b) (1), unless the authorization is terminated or revoked sooner. Negative results do not preclude 2019-nCoV infection and should not be used as the sole basis for treatment or other patient management decisions. Negative results must be combined with clinical observations, patient history, and epidemiological information. Performed on the SPAR[employer] [place] Fusion instrument Performing Lab [place] [facility] 11/13/2020 11:15 EDT [facility] Swab 11/12/2020 10:3 0 EDT 11/12/2020 17:14 EDT us Provider Outr Resulting Lab MICROBIOLOGY - GENER AL ORDERABLES Final Result [facility] [address] [place] [address] documented in this encounter Visit Diagnoses Not on filedocumented in this encounter Additional Health Concerns Infection Onset Date Last Indicated Resolved Time R/O COVID-19 04/16/2023 04/16/2023 04/16/2023 23:3 7 EDT COVID-19 04/16/2023 04/16/2023 05/06/2023 22:1 5 EDT documented as of this encounter Care Teams Entry Level Lab Technician Relationship Specialty Start Date End Date Mary Montana MD [address] [place] [phone] PCP - General 04/05/19 10/27/22 Livier Valdez AUTOMOTIVE SALES MANAGER [address] [place] [address] PCP - General Family Medicine - Primary Care 10/28/22 Mary Montana MD [address] [place] [phone] 03/25/19 documented as of this encounter
--- OUTSIDE RECORDS SUMMARY | 2024-09-15 00:28 | XMS_ITS | Encounter Summary ---
Author Organization [facility] Address [address] [place] [address] Care Team Providers Care Citrix Lead Name Role Phone Mary Montana MD Unavailable Mary Montana MD Primary Care Provider [phone] Encounter Details Date Type Department Care Team (Latest Contact Info) Description 11/11/2019 Travel Social History Tobacco Use Types Packs/Day [...] 11/11/2019 Lack of Transportation (Non-Medical) No 11/11/2019 Comments Yes Sex and Gender Information Value Date Recorded Sex Assigned at Not on file Legal Sex Female 18:26 EST Gender Identity Female 10/03/2019 12:19 EST Sexual Orientation Not on file COVID-19 Exposure Response Date Recorded In the last month, have you been in contact with someone who was confirmed or suspected to have Coronavirus / COVID-19? No / Unsure 11/11/2019 13:27 EDT documented as of this encounter Functional [...] on filedocumented in this encounter Care Teams Citrix Lead Relationship Specialty Start Date End Date Mary Montana MD [address] [place] [address] PCP - General 04/05/19 10/27/22 Mary Montana MD [address] [place] [address] 03/25/19 documented as of this encounter
--- OUTSIDE RECORDS SUMMARY | 2024-09-15 00:28 | XMS_ITS | Encounter Summary ---
Author Organization [facility] Address [address] [place] [address] Care Team Providers Care Auto Engine Mechanic Name Role Phone Mary Montana MD Unavailable Mary Montana MD Primary Care Provider [phone] Reason for Visit * Reason Comments Initial Visit Encounter Details Date Type Department Care Team (Late st Contact Info) Description 11/15/2019 9:30 EDT Initial [facility] [place] O[facility] [address] [place] [address] Jodie Sewell MD [address] [facility], [address] [place] [address] GA: 10w3d Social History Tobacco Use Types Packs/Day Years [...] 13:27 EDT documented as of this encounter Last Filed Vital Signs Vital Sign Reading Time Taken Comments Blood Pressure 110/74 11/15/2019 09 EDT Pulse - - Temperature - - Respiratory Rate - - Oxygen Saturation - - Inhaled Oxygen Concentration - - Weight 90.9 kg (200 lb 4.8 oz) 11/15/2019 09 E DT Height 165.1 cm (5' 5) 11/15/2019906 EDT Body Mass Index 33.33 11/15/2019906 EDT documented in this encounter Functional Status [...] documented in this encounter Progress Notes * Roxanna Lala RN - 11/15/2019929 EDT Pt was given IVAP teaching material and stated was reviewed at IVAP phone interview. * Jodie Sewell MD - 11/15/2019929 EDT Initial Subjective: Jonathon Hall is a 34 y.o. female at 10w3d who presents for her care. Current Estimated Date of Delivery: 06/09/20 based on Ultrasound. An ultrasound was performed. EGA by Scan = 06/09/2020 Symptoms since LMP: Patient reports no complaints. Denies bleeding. Slight cold and cough. Denies fever. Patient Active Problem List Diagnosis ??? Tubal infertility in female ??? Herpes zoster oticus ??? Supervision of high risk in first trimester Allergies Allergen Reactions ??? Amantadine Other reaction(s): rash and fever ??? Amitriptyline Other reaction(s): drowsiness ??? Penicillin Other reaction(s): hives/fever Past obstetric history reviewed and complications noted in table. Significant OB History: Labor Past Medical History: Diagnosis Date ??? Abnormal Pap smear of cervix ??? Back pain upper back pain, (when did this problem start?) 3 yrs ago Past Surgical History: Procedure Laterality Date ??? ABDOMINOPLASTY ??? BREAST ENHANCEMENT SURGERY ??? CERVIX SURGERY ??? ROTATOR CUFF REPAIR Right ??? TUBAL LIGATION Past GETTER OPERATOR History reviewed in Chart. Family History Problem Relation Age of Onset ??? Diabetes Sister ??? Cancer Sister ??? Diabetes Maternal Grandmother ??? Cancer Maternal Grandmother ??? Coronary Artery Disease Maternal Grandmother ??? Diabetes Paternal Grandmother ??? Cancer Paternal Grandfather Social History Socioeconomic History ??? Marital status: Spouse name: Eleuterio ??? Number of children: Not on file ??? Years of education: Not on file ??? Highest education level: Not on file Occupational History ??? Not on file Social Needs ??? Financial resource strain: Not on file ??? Food insecurity: Worry: Never true Inability: Never true ??? Transportation needs: Medical: No Non-medical: No Tobacco Use ??? Smoking status: Former Smoker ??? Smokeless tobacco: Never Used Substance and Sexual Activity ??? Alcohol use: Not Currently Comment: 1 x pr wk prior to ??? Drug use: Never ??? Sexual activity: Yes Partners: Male Lifestyle ??? Physical activity: Days per week: Not on file Minutes per session: Not on file ??? Stress: Not on file Relationships ??? Social connections: Talks on phone: Not on file Gets together: Not on file Attends pentecostalism service: Not on file Active member of club or organization: Not on file Attends meetings of clubs or organizations: Not on file Relationship status: Not on file ??? Intimate partner violence: Fear of current or ex partner: Not on file Emotionally abused: Not on file Physically abused: Not on file Forced sexual activity: Not on file Other Topics Concern ??? Lives with Parent(s) Not Asked ??? Foster Care Not Asked ??? Other Caregivers Involved Not Asked ??? Active DCF/CPS Involvement Not Asked ??? History of DCF/CPS Involvement Not Asked ??? Feels Safe in Home/School/Neighborhood Yes ??? Enrolled in School Not Asked ??? Doing well in school Not Asked ??? IEP/504 Plan Not Asked ??? Literacy Concerns Not Asked ??? Service Not Asked ??? Legal Status/Immigration Concerns Not Asked ??? Adequate Household Income Not Asked ??? Adequate Electric/Heat/Telephone Not Asked ??? Home Environment Safe Yes ??? Environmental Exposure Not Asked ??? Occupational Exposure Not Asked ??? Seat Belt Not Asked ??? Bike Helmet Not Asked ??? Access to Firearms Not Asked ??? Notified to Remove Firearms Not Asked ??? Hobby Hazards Not Asked ??? Exercise Not Asked ??? Weight Concern Not Asked ??? Sleep Concern Not Asked ??? Stress Concern Not Asked ??? Caffeine Concern Not Asked ??? Back Care Not Asked ??? Self-Exams Not Asked ??? Blood Transfusions Not Asked ??? Special Diet Not Asked Social History Narrative ??? Not on file Living Situation: Stable Significant Other Review of Systems: A ten point review of systems was performed and was negative except for pertinent positives noted in the HPI Objective: Vitals: 11/15/19 0907 BP: 110/74 Weight: 90.9 kg (200 lb 4.8 oz) Height: 165.1 cm (65) Body mass index is 33.33 kg/m??. See chart for complete exam. Results for orders placed or performed in visit on 10/23/19 (from the past 672 hour(s)) PROGESTERONE Collection Time: 10/23/19 11:21 Result Value Ref Range Progesterone 103.9 See Table ng/mL Results for orders placed or performed in visit on 10/23/19 (from the past 672 hour(s)) PROGESTERONE Collection Time: 10/23/19 11:21 Result Value Ref Range Progesterone 103.9 See Table ng/mL Results for orders placed or performed in visit on 10/20/19 (from the past 672 hour(s)) PROGESTERONE Collection Time: 10/20/19 8:14 Result Value Ref Range Progesterone 124.7 See Table ng/mL Results for orders placed or performed in visit on 10/20/19 (from the past 672 hour(s)) PROGESTERONE Collection Time: 10/20/19 8:14 Result Value Ref Range Progesterone 124.7 See Table ng/mL Assessment: 1. IUP at 10w3d: no problems 2. Estimated Date of Delivery: 06/09/20 based on Ultrasound. Plan: 1. Problem list reviewed and updated. 2. Aneuploidy testing: plans to have cell free DNA based testing and carrier screening done. 3. She has a history of PPROM but declines MFM consult, progesterone or early CL checks except for 20 weeks 4. Due to comorbidities I recommended starting baby ASA at 12 weeks. 5. I discussed risk of COVID and ways to decrease risk. She has been staying home but does have a cough she reports due to current cold. Denies fever or other symptoms of COVID. She states she has been evaluated by her pcp. Jodie Sewell MD documented in this encounter Plan of Treatment Not on file documented as of this encounter Visit Diagnoses Diagnosis Supervision of high risk in first trimester- Primary Unspecified high-risk documented in this encounter Discontinued Medications Medication Sig Discontinue Reason Start Date End Da te progesterone in oil 50 mg/mL injection Inject 1 mL into the muscle daily. Therapy completed 08/12/2019 11/15/2019 documented as of this encounter Historical Medications * This list may reflect changes made after this encounter. cholecalciferol, Vitamin D3, 1,000 unit tablet Take 1,000 Units by mouth daily. 03/13/2022 added in this encounter Care Teams Auto Engine Mechanic Relationship Specialty Start Date End Date Mary Montana MD [address] [place] [address] PCP - General 04/05/19 10/27/22 Mary Montana MD [address] [place] [phone] 03/25/19 documented as of this encounter
--- OUTSIDE RECORDS SUMMARY | 2024-09-15 00:28 | XMS_ITS | Encounter Summary ---
Author Organization [facility] Address [address] [place] [address] Care Team Providers Care Commercial Sales Specialist Name Role Phone Mary Montana MD Unavailable Mary Montana MD Primary Care Provider [phone] Reason for Visit * Reason Onset Date Comments Other 11/13/2020 COVID 19 call ce nter - results. Encounter Details Date Type Department Care Team (Late st Contact Info) Description 11/13/2020 Telephone [facility] - Mobile Testing Department [address] [place] [id number] Fabrice Ferrara, RN Other (COVID 19 call center - results.) Social History Tobacco Use Types Packs/Day Years [...] encounter Miscellaneous Notes * Telephone Encounter - Fabrice Ferrara RN - 11/13/2020 8856 EDT Voice mail message left asking pt to call the [facility] call center at [phone]. documented in this encounter Plan of Treatment Not on file documented as of this encounter Visit Diagnoses Not on filedocumented in this encounter Care Teams Commercial Sales Specialist Relationship Specialty Start Date End Date Mary Montana MD [address] [place] [address] PCP - General 04/05/19 10/27/22 Mary Montana MD [address] [place] [phone] 03/25/19 documented as of this encounter
--- OUTSIDE RECORDS SUMMARY | 2024-09-15 00:28 | XMS_ITS | Encounter Summary ---
Author Organization [facility] Address [address] [place] [address] Care Team Providers Care Infrastructure Manager Name Role Phone Mary Montana MD Unavailable Mary Montana MD Primary Care Provider [phone] Reason for Visit * Reason Onset Date Comments 05/24/2020 asking about 200 6 Encounter Details Date Type Department Care Team (Late st Contact Info) Description 05/24/[address] [facility] [address] [place] [address] Adry Oneill MD [address] [facility], [address] [place] [address] (asking about 2005 ) Social History Tobacco Use Types Packs/Day Years [...] Verbally Threaten Not on file 03/12/2020 Comments Yes Sex and Gender Information Value [...] encounter Miscellaneous Notes * Telephone Encounter - [place] RN - 05/24/2020 1344 EDT Spoke with patient and gave phone number for medical records to have them assist with obtaining these records. * Telephone Encounter - Rama Guzman - 05/24/2020 1321 EDT Pt is calling to get information from her 2007 , she is currently and started hercare with us but transferred to [place], she needs the information to help the help desk specialist documented in this encounter Plan of Treatment Not on file documented as of this encounter Visit Diagnoses Not on filedocumented in this encounter Care Teams Infrastructure Manager Relationship Specialty Start Date End Date Mary Montana MD [address] [place] [address] PCP - General 04/05/19 10/27/22 Mary Montana MD [address] [place] [phone] 03/25/19 documented as of this encounter
--- OUTSIDE RECORDS SUMMARY | 2024-09-15 00:28 | XMS_ITS | Encounter Summary ---
Author Organization [facility] Address [address] [place] [address] Care Team Providers Care Animal Attendant Name Role Phone Mary Montana MD Unavailable Mary Montana MD Primary Care Provider [phone] Reason for Referral * SUSTAINABILITY COORDINATOR (Routine) - Specialty Report Received Specialty Diagnoses / Procedures Referred By Contac t Referred To Contact Diagnoses resulting from assisted reproductive technology in first trimester Procedures OB FIRST TRIMESTER (LESS THAN 14 WEEKS) TRANSVAGINAL Gary Lion MD Phone: tel: fax: Referral ID Status Reason Start Date Expiration Date V isits Requested Visits Authorized [id number] Specialty Report Received 10/05/2019 1 1 Reason for Visit * SUSTAINABILITY COORDINATOR (Routine) - Specialty Report Received Specialty Diagnoses / Procedures Referred By Contac t Referred To Contact Diagnoses resulting from assisted reproductive technology in first trimester Procedures US OB FIRST TRIMESTER (LESS THAN 14 WEEKS) TRANSVAGINAL Gary Lion MD Phone: tel: fax: Referral ID Status Reason Start Date Expiration Date V isits Requested Visits Authorized [id number] Specialty Report Received 10/05/2019 1 1 Encounter Details Date Type Department Care Team (Latest Contact Info) Description 10/18/2019 8:40 EDT - 10/19/2019 23:59 EDT Hospital Encounter [facility] [place] [address] resulting from assisted reproductive technology in first trimester Discharge Disposition: Home or Self Care Social History Tobacco Use Types Packs/Day Years Used Date Smoking Tobacco: Never Smokeless Tobacco: Never Alcohol Use Standard Drinks/Week Comments Yes 0 (1 standard drink = 0.6 oz pur e alcohol) 1 x pr wk Comments No Sex and Gender Information Value [...] this encounter Medications at Time of Discharge multivit-minerals/ folic acid (ADULT MULTIVITAMIN GUMMIES ORAL) Take by mouth. 11/11/2019 progesterone in oil 50 mg/mL injection Inject 1 mL into the muscle daily. 2 Vial 3 08/12/2019 11/15/2019 documented as of this encounter Discharge Disposition Disposition Code Departure Means Destination Home or Self Care documented in this encounter Plan of Treatment Not on file documented as of this encounter Procedures Procedure Name Priority Date/Time Associated Diagnosis Comments US OB FIRST TRIMESTER (LESS THAN 14 WEEKS) TRANSVAGINAL Routine 10/18/2019 9:18 EDT resulting from assisted reproductive technology in first trimester documented in this encounter Results * US OB FIRST TRIMESTER (LESS THAN 14 WEEKS) TRANSVAGINAL (10/18/2019 9:18 EDT) Anatomical Region Laterality Modality Pelvis Ultrasound 10/18/2019 8:55 EDT Narrative 10/18/2019 9:34 EDT Indication Early assessment, s/p day 5 single ET on 09/22/2019. Number of gestational sacs: 1. Dating ======= Conception: ?Invitro fertilization Method of dating: ??based on the IVF / ET date Embryo transfer on: ?09/22/2019 IVF / ET ?? 5 d GA by IVF / ET 6 w + 3 d LARISA by IVF / ET: ?? 06/09/2020 Ultrasound examination on: 10/18/2019 GA by U/S based upon: ??CRL GA by U/S ??6 w + 3 d LARISA by U/S: ?06/09/2020 Assigned: ??Dating performed on 10/18/2019, based on the IVF / ET date Assigned GA ?6 w + 3 d Assigned LARISA: ??06/09/2020 Assessment Gestational sac: ?? Visualized Location: ??Intrauterine Yolk sac: ??Visualized Amniotic sac: ??Not visualized Embryo: ?Visualized CRL ?6.1 mm ??53% 6w 3d Hadlock Cardiac activity: ??Present FHR ?120 bpm Maternal Structures Uterus / Cervix Uterus: ?Appears normal Uterus position: ?? Anteverted Ovaries / Tubes / Adnexa Rt ovary: ??Normal with Corpus luteum Rt ovary D1 ?3.7 cm Rt ovary D2 ?4.7 cm Rt ovary D3 ?3.6 cm Rt ovary mean ??4.0 cm Rt ovary vol ?? 32.4 cm cubed Lt ovary: ??Normal with Corpus luteum Lt ovary D1 ?4.2 cm Lt ovary D2 ?3.6 cm Lt ovary D3 ?2.4 cm Lt ovary mean ??3.4 cm Lt ovary vol ?? 18.8 cm cubed Pouch of Gibson / Other Structures Cul de Sac: ?Appears normal Free fluid: ?Free fluid visualized Amount of free fluid: ??mild Impression OB Transvaginal - 40297 1. Normal appearing anteverted uterus with viable trevino intra-uterine . 2. Small subchorionic hematoma 3. Bilateral ovaries with resolving CLs consistent with recent IVF stimulation 4. Mild amount of free fluid in the posterior cul-de-sac. Follow-up See note in Epic. Repeat US in two weeks. Comment ========= O09.81 supervision of resulting from assisted reproductive technology. DATE OF SERVICE: 10/18/2019 Procedure Note Gary Lion MD - 10/18/2019 Indication Early assessment, s/p day 5 single ET on 09/22/2019. Number of gestational sacs: 1. Dating ======= Conception: Invitro fertilization Method of dating: based on the IVF / ET date Embryo transfer on: 09/22/2019 IVF / ET 5 d GA by IVF / ET 6 w + 3 d LARISA by IVF / ET: 06/09/2020 Ultrasound examination on: 10/18/2019 GA by U/S based upon: CRL GA by U/S 6 w + 3 d LARISA by U/S: 06/09/2020 Assigned: Dating performed on 10/18/2019, based on the IVF / ET date Assigned GA 6 w + 3 d Assigned LARISA: 06/09/2020 Assessment Gestational sac: Visualized Location: Intrauterine Yolk sac: Visualized Amniotic sac: Not visualized Embryo: Visualized CRL 6.1 mm 53% 6w 3d Hadlock Cardiac activity: Present FHR 120 bpm Maternal Structures Uterus / Cervix Uterus: Appears normal Uterus position: Anteverted Ovaries / Tubes / Adnexa Rt ovary: Normal with Corpus luteum Rt ovary D1 3.7 cm Rt ovary D2 4.7 cm Rt ovary D3 3.6 cm Rt ovary mean 4.0 cm Rt ovary vol 32.4 cm cubed Lt ovary: Normal with Corpus luteum Lt ovary D1 4.2 cm Lt ovary D2 3.6 cm Lt ovary D3 2.4 cm Lt ovary mean 3.4 cm Lt ovary vol 18.8 cm cubed Pouch of Gibson / Other Structures Cul de Sac: Appears normal Free fluid: Free fluid visualized Amount of free fluid: mild Impression OB Transvaginal - 63693 1. Normal appearing anteverted uterus with viable trevino intra- uterinepregnancy. 2. Small subchorionic hematoma 3. Bilateral ovaries with resolving CLs consistent with recent IVFstimulation 4. Mild amount of free fluid in the posterior cul-de-sac. Follow-up See note in Epic. Repeat US in two weeks. Comment ========= O09.81 supervision of resulting from assisted reproductivetechnology. DATE OF SERVICE: 10/18/2019 Gary Lion MD [facility] OB ORDERABLES Final R esult documented in this encounter Visit Diagnoses Diagnosis resulting from assisted reproductive technology in first trimester documented in this encounter Care Teams Animal Attendant Relationship Specialty Start Date End Date Mary Montana MD [address] [place] [address] PCP - General 04/05/19 10/27/22 Mary Montana MD [address] [place] [phone] 03/25/19 documented as of this encounter
--- OUTSIDE RECORDS SUMMARY | 2024-09-15 00:28 | XMS_ITS | Encounter Summary ---
Author Organization [facility] Address [address] [place] [address] Care Team Providers Care Health Policy Manager Name Role Phone Mary Montana MD Unavailable Mary Montana MD Primary Care Provider [phone] Reason for Visit * Reason Comments COVID-19 SYMPTOMATIC PT Encounter Details Date Type Department Care Team (Late st Contact Info) Description 11/12/2020 10:30 EDT Office Visit [facility] - Mobile Testing Department [address] [place] [address] Nurse, [facility] Mobile Testing Screening for viral disease (Primary Dx) Social History Tobacco Use Types [...] in this encounter Progress Notes * Nevaeh Carroll MA - 11/12/2020 1030 EDT Covid specimen collected by: Sabina Branch Patient tolerated well. Covid instructional hand-out given documented in this encounter Plan of Treatment Not on file documented as of this encounter Visit Diagnoses Diagnosis Screening for viral disease- Primary Special screening examination for unspecified viral disease documented in this encounter Care Teams Health Policy Manager Relationship Specialty Start Date End Date Mary Montana MD [address] [place] [phone] PCP - General 04/05/19 10/27/22 Mary Montana MD [address] [place] [phone] 03/25/19 documented as of this encounter
--- OUTSIDE RECORDS SUMMARY | 2024-09-15 00:28 | XMS_ITS | Encounter Summary ---
Author Organization [facility] Address [address] [place] [address] Care Team Providers Care Manager Investigations Name Role Phone Mary Montana MD Unavailable Mary Montana MD Primary Care Provider [phone] Encounter Details Date Type Department Care Team (Late st Contact Info) Description 01/04/2021 Results Only [facility] - Main [address] [address] Antonia Yen MD [address] [place] [address] Social History Tobacco Use Types Packs/Day Years [...] Date/Time Associated Diagnosis Comments SURGICAL PATHOLOGY Routine 01/04/2021 documented in this encounter Results * SURGICAL PATHOLOGY (01/04/2021) 01/04/2021 01/05/2021 8:2 6 EDT [facility] - 01/09/2021 17:14 EDT ----- ------- Name: JONATHON HALL ?: [birth year] ?Age/Sex: 35/F ?Unit#: [id number] ? Loc: [facility] ? Status: REG REF ?? Reg Date: 01/04/21 ? Pt.Phone Number: ? ----- ------- Specimen: [id number] ? STATUS: SOUT ?Spec Date:01/04/21 ? Physician Copies: ?Antonia Yen ? Tissues: A ?? Endometrial biopsy ? Mary Montana MD ? CPT: 51580 ?? Units: ??1 ?FINAL DIAGNOSIS ? ENDOMETRIUM, BIOPSY; ? - Inactive endometrium with stromal progestin effect and prominent stromal and ?glandular breakdown. ? - No evidence of hyperplasia or atypia. ----- ------- ?COMMENT ? Intradepartmental review was obtained. ? GROSS DESCRIPTION ? Received in formalin labeled Jonathon Hall and CHANNING submitted in cassette 1 ? is an estimated 2.0cc aggregate of adair-brown tissue fragments and mucous, ? filtered, and submitted in cassette 2 is an estimated 1.5cc aggregate of ? adair-brown tissue fragment and mucous, filtered, es 2. KT/db ?? PREOP DX/CLINICAL HISTORY ?AUB Signed ____(signature on file)____ Victor M Rivas 01/09/21 ? By the signature above, the attending physician certifies that he/she has personally conducted a gross and/or microscopic examination of the described specimens and rendered or confirmed the above diagnosis. Test Performed by [facility], [address] [place] [address] Panel Wirer: Mahi Little MD PHD ----- ------- us Antonia Yen MD PATHOLOGY ORDERABLES Final Resu lt [facility] [address] [place] [address] documented in this encounter Visit Diagnoses Not on filedocumented in this encounter Care Teams Manager Investigations Relationship Specialty Start Date End Date Mary Montana MD [address] [place] [address] PCP - General 04/05/19 10/27/22 Mary Montana MD [address] [place] [address] 03/25/19 documented as of this encounter
--- OUTSIDE RECORDS SUMMARY | 2024-09-15 00:28 | XMS_ITS | Encounter Summary ---
Author Organization [facility] Address [address] [place] [address] Care Team Providers Care Stitch Rubber Name Role Phone Mary Montana MD Unavailable Mary Montana MD Primary Care Provider [phone] Encounter Details Date Type Department Care Team (Late st Contact Info) Description 11/15/2019 Results Only [facility] - [facility] OBGYN [address] [place] [address] Adry Oneill MD [address] [facility], [address] [place] [address] Social History Tobacco Use Types Packs/Day Years [...] Procedure Name Priority Date/Time Associated Diagnosis Comments RAPID PLASMA REAGIN (RPR) WITH REFLEX, S Routine 11/15/2019 11:51 EDT TYPE AND SCREEN Routine 11/15/2019 11:51 EDT CS/SMA - CV Routine 11/15/2019 11:50 EDT CELL FREE DNA - [facility] Routine 11/15/2019 11:50 EDT HIV 1/2 AB, P24 AG - [facility] Routine 11/15/2019 11:50 EDT ONE HOUR PC - CV Routine 11/15/2019 11 :50 EDT COMPLETE BLOOD COUNT WITH DIFFERENTIAL (AUTO) Routine 11/15/2019 11:50 EDT RUBELLA IGG ANTIBODY Routine 11/15/2019 11:50 EDT HEPATITIS B SURFACE ANTIGEN Routine 11/15/2019 11:50 EDT VARICELLA IGG ANTIBODY Routine 11/15/2019 11:50 EDT GC/CHLAMYDIA PCR - [facility] Routine 11/15/2019 10:03 EDT URINALYSIS/COMPLETE - [facility] Routine 11/15/2019 10:03 EDT BACTERIAL CULTURE, URINE Routine 11/15/2019 10:03 EDT documented in this encounter Results * RAPID PLASMA REAGIN (RPR) WITH REFLEX, S (11/15/2019 11:51 EDT) Pathologist [facility] [place] APID PLASMA REAGIN [facility] Nonreactive NEG 11/18/2019 10:59 EDT [facility] 11/15/2019 11:5 1 EDT 11/15/2019 11:51 EDT Narrative [facility] - 11/18/2019 10:59 EDT Does PT Have a Latex Allergy? NO Adry Oneill MD IMMUNOLOGY AND SEROLOGY ORDER BETTINA Final Result [facility] * TYPE AND SCREEN (11/15/2019 11:51 EDT) [facility] BLOOD TYPE [facility] O Positive [facility] Antibody Screen NEGATIVE [facility] Specimen Expires: 11/18/19 [id number] [facility] Comment: PATIENT'S RESPONSES INDICATE A HISTORY OF SURGERY, TRANSFUSION OR WITHIN THE LAST 3 MONTHS. FOR BLOOD PRODUCTS, THIS SPECIMEN WILL OUTDATE 72 HOURS FROM THE TIME IT WAS COLLECTED. ??ANY BLOOD PRODUCTS ORDERED AFTER 72 HOURS MUST BE WORKED UP ON A NEW SPECIMEN. 11/15/2019 11:5 1 EDT 11/15/2019 11:51 EDT [facility] - 11/15/2019 10:47 EDT Does PT Have a Latex Allergy? NO IS THIS A PREOPERATIVE PATIENT? N Adry Oneill MD BLOOD BANK TESTS Final Result [facility] * VARICELLA IGG ANTIBODY (11/15/2019 11:50 EDT) Varicella IgG Ab Positive Negative 11/16/2019 22:55 EDT [facility] Comment:Presumed immune to V aricella infection. 11/15/2019 11:5 0 EDT 11/15/2019 11:50 EDT [facility] - 11/16/2019 22:55 EDT Does PT Have a Latex Allergy? NO Adry Oneill MD IMMUNOLOGY AND SEROLOGY ORDER BETTINA Final Result [facility] * HIV 1/2 AB, P24 AG - [facility] (11/15/2019 11:50 EDT) Pathologist [facility] [place] HIV 1/2 AB, P24 AG - [facility] Negative Negative 11/15/2019 13:37 EDT [facility] 11/15/2019 11:5 0 EDT 11/15/2019 11:50 EDT [facility] - 11/15/2019 13:37 EDT Does PT Have a Latex Allergy? NO Adry Oneill MD CHEMISTRY & BLOOD GAS ORDERAB LES Final Result [facility] * CS/SMA - [facility] (11/15/2019 11:50 EDT) Pathologist [facility] [place] CF/SMA -[facility] See note 11/15/2019 13:35 EDT [facility] Comment: Kit or Tubes Drawn? ??Kit Transported by UPS,FedEx or Regulator Tester: ??FedEx Destination: ??Attn: Client Services, [employer], [address] ?[place] [address] Test Performed: CF/SMA Container: Kit Tracking #: ??[id number] 11/15/2019 11:5 0 EDT 11/15/2019 11:50 EDT Narrative [facility] - 11/15/2019 13:35 EDT Does PT Have a Latex Allergy? NO Adry Oneill MD CHEMISTRY & BLOOD GAS ORDERAB LES Final Result [facility] * CELL FREE DNA - [facility] (11/15/2019 11:50 EDT) [facility] CELL FREE DNA - [facility] See note 11/15/2019 13:35 EDT [facility] Comment: Kit or Tubes Drawn? ??Kit Transported by UPS,FedEx or Regulator Tester: ??FedEx Destination: ??Attn: Client Services, [employer], [address] ?[place] [address] Test Performed: Cell Free DNA Container: Kit Tracking #: ??[id number] 11/15/2019 11:5 0 EDT 11/15/2019 11:50 EDT Narrative [facility] - 11/15/2019 13:35 EDT Does PT Have a Latex Allergy? NO Adry Oneill MD CHEMISTRY & BLOOD GAS ORDERAB LES Final Result [facility] * RUBELLA IGG ANTIBODY (11/15/2019 11:50 EDT) [facility] RUBELLA IGG ANTIBODY [facility] Positive 11/15/2019 13:26 EDT [facility] Comment: Expected value: Positive The presence of Rubella IgG suggest immunity against rubella 11/15/2019 11:5 0 EDT 11/15/2019 11:50 EDT [facility] - 11/15/2019 13:26 EDT Does PT Have a Latex Allergy? NO Adry Oneill MD CHEMISTRY & BLOOD GAS ORDERAB LES Final Result Performing Organization Address [facility] Co de Phone Number [facility] * HEPATITIS B SURFACE ANTIGEN (11/15/2019 11:50 EDT) [facility] Hep B Surface Ag Negative 11/15/2019 13:26 EDT [facility] Comment: Expected Values: ??Negative. The results of this assay can be falsely lowered due to the consumption of Biotin. 11/15/2019 11:5 0 EDT 11/15/2019 11:50 EDT [facility] - 11/15/2019 13:26 EDT Does PT Have a Latex Allergy? NO Enter/Edit CPT and ICD codes? N Adry Oneill MD CHEMISTRY & BLOOD GAS ORDERAB LES Final Result Performing Organization Address [facility] de Phone Number [facility] * ONE HOUR PC - [facility] (11/15/2019 11:50 EDT) [facility] ONE HOUR PC - [facility] 116 88 - 139 mg/dL 11/15/2019 12:56 EDT [facility] Comment: ACOG RECOMMENDED GUIDELINES Greater than or equal to ??140 mg/dL suspect gestational diabetes. ?? Recommend confirmation with 3 hr GTT 11/15/2019 11:5 0 EDT 11/15/2019 11:50 EDT [facility] - 11/15/2019 12:56 EDT Does PT Have a Latex Allergy? NO us Adry Oneill MD CHEMISTRY & BLOOD GAS ORDERAB LES Final Result Performing Organization Address [facility] Co de Phone Number [facility] * COMPLETE BLOOD COUNT WITH DIFFERENTIAL (AUTO) (11/15/2019 11:50 EDT) [facility] Gran # 6.9 2.2 - 8.85 10e3/uL 11/15/2019 12:35 [facility] BASO # - [facility] 0.04 0.01 - 0.11 10e/uL 11/15/2019 12:35 [facility] BASO % - [facility] 0 0 - 2 % 11/15/2019 12:35 [facility] EOS # - [facility] 0.12 0.03 - 0.61 10e3/ul 11/15/2019 12:35 [facility] EOS % - [facility] 1 0 - 5 % 11/15/2019 12:35 [facility] GRAN % - [facility] 71.8 40 - 80 % 11/15/2019 12:35 [facility] HEMATOCRIT - [facility] 37.3 34.9 - 44.4 % 11/15/2019 12:35 [facility] HEMOGLOBIN - [facility] 12.2 11.6 - 15.2 g/dl 11/15/2019 12:35 [facility] IG# - [facility] 0.05 0 - 0.7 10e3/uL 11/15/2019 12:35 [facility] IG% - [facility] 0.5 0 - 0.9 % 11/15/2019 12:35 [facility] LYMPH # - [facility] 2.1 1.09 - 3.3 10e3/ul 11/15/2019 12:35 [facility] LYMPH% - [facility] 21.6 20 - 40 % 11/15/2019 12:35 [facility] MEAN CORPUSCULAR HGB - [facility] 26.8 26.7 - 33.3 pg 11/15/2019 12:35 [facility] MEAN CORPUSCULAR HGB CONC - [facility] 32.7 32.1 - 35.9 g/dL 11/15/2019 12:35 [facility] MEAN CELL VOLUME - [facility] 82.0 81 - 98 fl 11/15/2019 12:35 [facility] MONO # - [facility] 0.4 0.1 - 0.8 10e3/uL 11/15/2019 12:35 [facility] MONO% - [facility] 4.5 0 - 12 % 11/15/2019 12:35 EDT [facility] PLATELET COUNT 339 141 - 377 10e3/ul 11/15/2019 12:35 EDT [facility] RED BLOOD COUNT - [facility] 4.55 3.86 - 5.04 10e3/ul 11/15/2019 12:35 EDT [facility] RED CELL DISTRI WIDTH - [facility] 12.4 <14.7 % 11/15/2019 12:35 EDT [facility] WHITE BLOOD COUNT - [facility] 9.7 4.0 - 12.4 10e3/ul 11/15/2019 12:35 EDT [facility] 11/15/2019 11:5 0 EDT 11/15/2019 11:51 EDT Narrative [facility] - 11/15/2019 12:35 EDT Does PT Have a Latex Allergy? NO Adry Oneill MD HEMATOLOGY & PF4 ORDERABLES F inal Result [facility] * BACTERIAL CULTURE, URINE (11/15/2019 10:03 EDT) [facility] USUAL UROGENITAL PORSHA - [facility] UUV 11/17/2019 11:07 EDT [facility] COLONY COUNT 10,000-100 ,000 CFU/ML 11/17/2019 11:07 EDT [facility] Urine specimen (specimen) 11/15/2019 10:03 EDT 11/15/2019 17:28 EDT Comment:VOID Adry Oneill MD MICROBIOLOGY - GENERAL ORDERA BLES Final Result [facility] * GC/CHLAMYDIA PCR - [facility] (11/15/2019 10:03 EDT) Pathologist [facility] [place] CHLAMYDIA PCR - [facility] NOT DETECTED 11/15/2019 20:58 EDT [facility] GONORRHEA PCR - [facility] NOT DETECTED 11/15/2019 20:58 EDT [facility] SOURCE CERVIX 11/15/2019 20:58 EDT [facility] 11/15/2019 10:0 3 EDT 11/15/2019 17:28 EDT us Adry Oneill MD CHEMISTRY & BLOOD GAS ORDERAB LES Final Result [facility] * URINALYSIS/COMPLETE - [facility] (11/15/2019 10:03 EDT) URINE APPEARANCE - [facility] Turbid CLEAR 11/15/2019 18:06 EDT [facility] URINE AMORPH CRYSTAL - [facility] TNTC 11/15/2019 18:11 [facility] URINE BACTERIA - [facility] NEG 11/15/2019 18:11 [facility] URINE BILIRUBIN - D[facility] - [facility] 1+ NEGATIVE 11/15/2019 18:06 [facility] Comment: Unable to confirm positive urine bilirubin. If clinical correlation is inconsistent, consider serum bilirubin. URINE BLOOD - [facility] Negative NEG 11/15/2019 18:06 [facility] URINE COLOR - [facility] Yellow YELLOW 11/15/2019 18:06 [facility] URINE GLUCOSE - [facility] - [facility] Negative NEGATIVE 11/15/2019 18:06 [facility] URINE KETONE - [facility] Negative NEGATIVE 11/15/2019 18:06 [facility] URINE LEUK ESTERASE - [facility] 1+ NEG 11/15/2019 18:06 [facility] URINE NITRITE - [facility] - [facility] Negative NEG 11/15/2019 18:06 [facility] URINE PH - [facility] 5.5 4.0 - 8.0 0 18:06 [facility] URINE PROTEIN - [facility] - [facility] Negative NEG 11/15/2019 18:06 [facility] URINE RBC - [facility] NEG rbc/hpf 11/15/19 20 18:11 EDT [facility] URINE SPECIFIC GRAVITY - [facility] 1.025 1.001 - 1.035 11/15/2019 18:06 EDT [facility] URINE SQUAMOUS CELLS - [facility] FEW NEG #/hpf 11/15/2019 18:11 EDT [facility] URINE TRANSITIONAL CELLS - [facility] RARE #/hpf 11/15/2019 18:11 EDT [facility] URINE UROBILINOGEN - [facility] - [facility] 0.2 0.2 - 1.0 11/15/2019 18:06 EDT [facility] URINE WBC - [facility] 1-4 NEG wbc/hpf 020 18:11 EDT [facility] 11/15/2019 10:0 3 EDT 11/15/2019 17:28 EDT us Adry Oneill MD CHEMISTRY & BLOOD GAS ORDERAB LES Final Result [facility] documented in this encounter Visit Diagnoses Not on filedocumented in this encounter Care Teams Stitch Rubber Relationship Specialty Start Date End Date Mary Montana MD [address] [place] [address] PCP - General 04/05/19 10/27/22 Mary Montana MD [address] [place] [phone] 03/25/19 documented as of this encounter
--- OUTSIDE RECORDS SUMMARY | 2024-09-15 00:28 | XMS_ITS | Encounter Summary ---
Author Organization [facility] Address [address] [place] [address] Care Team Providers Care Warehouse Foreman Name Role Phone Mary Montana MD Unavailable Mary Montana MD Primary Care Provider [phone] Encounter Details Date Type Department Care Team (Late st Contact Info) Description 11/12/2020 Results Only [facility] [address] [place] [id number] Laverne Sherman MD [address] [place] [address] Social History Tobacco Use Types Packs/Day Years [...] Date/Time Associated Diagnosis Comments COVID-19 TESTING Routine 11/12/2020 10:3 0 EDT documented in this encounter Results * COVID-19 TESTING (11/12/2020 10:30 EDT) Performing Lab [facility] 11/13/2020 13:47 EDT [facility] Comment: Please indicate the Triage TierT2 Test performed or referred by The [address] [address] COVID-19 rt-PCR Result Not Detected Negative 11/13/2020 13:47 EDT [facility] Comment: This test has not [...] history, and epidemiological information. Performed on the [employer] [place] Fusion instrument 11/12/2020 10:3 0 EDT 11/12/2020 10:42 EDT us Laverne Sherman MD MICROBIOLOGY - GENERAL ORDERAB LES Final Result Performing Organization Address City/State/[facility] Co de Phone Number [facility] [address] [place] [address] documented in this encounter Visit Diagnoses Not on filedocumented in this encounter Care Teams Warehouse Foreman Relationship Specialty Start Date End Date Mary Montana MD [address] [place] [address] PCP - General 04/05/19 10/27/22 Mary Montana MD [address] [place] [address] 03/25/19 documented as of this encounter
--- OUTSIDE RECORDS SUMMARY | 2024-09-15 00:28 | XMS_ITS | Encounter Summary ---
Author Organization [facility] Address [address] [place] [address] Care Team Providers Care Clay Stain Mixer Name Role Phone Mary Montana MD Unavailable Mary Montana MD Primary Care Provider [phone] Reason for Referral * Laboratory Services (Routine) - New Request Specialty Diagnoses / Procedures Referred By [facility] Referred To Contact Diagnoses Encounter for screening for other genetic defects Screening for genetic disease carrier status Procedures MISCELLANEOUS TEST, NON FAIRFAX Adry Oneill MD Phone: tel: fax: Referral ID Status Reason Start Date Expiration Date V isits Requested Visits Authorized [id number] New Request 11/11/2019 1 1 Reason for Visit * Reason Comments Initial Visit RN IVAP VISIT Encounter Details Date Type Department Care Team (Late st Contact Info) Description 11/11/2019 13:20 EDT Telemedicine [facility] OBGYN [address] [place] [address] Nurse, [facility] Womens Supervision of high risk , antepartum (Primary Dx); High-risk in multigravida greater than 35 years of age, antepartum; Encounter for screening for other genetic defects; Screening for genetic disease carrier status Social History Tobacco Use Types Packs/Day Years [...] documented in this encounter Progress Notes * Jenifer Stewart RN - 11/11/2019 1320 EDT Embryo transfer date 09/22/2019. Education completed with patient. Review of IVAP booklet, Nutrition pamphlet,Breastfeedingpamphlet, exercise handout, [facility] Contact information, Genetic screening pamphlet. Packet was reviewed w/pt. All questions answered and verbally understood by pt. Will give pt pamphlets and IVAP booklet at time of MD visit documented in this encounter Plan of Treatment Scheduled Orders Name Type Priority Associated Diagnoses Orde r Schedule MISCELLANEOUS TEST, NON [facility] Lab Routine Encounter for screening for other genetic defects Screening for genetic disease carrier status Ordered: 11/11/2019 documented as of this encounter Visit Diagnoses Diagnosis Supervision of high risk , antepartum- Primary High-risk in multigravida greater than 35 years of age, antepartum Encounter for screening for other genetic defects Screening for genetic disease carrier status documented in this encounter Discontinued Medications Medication Sig Discontinue Reason Start Date End Da te multivit-minerals/folic acid (ADULT MULTIVITAMIN GUMMIES ORAL) Take by mouth. Patient Stopped Taking 0 documented as of this encounter Historical Medications * This list may reflect changes made after this encounter. PREPLUS 27 mg iron- 1 mg tablet tablet TK 1 T PO QD 10/21/2019 04/26/2020 added in this encounter Care Teams Clay Stain Mixer Relationship Specialty Start Date End Date Mary Montana MD [address] [place] [phone] PCP - General 04/05/19 10/27/22 Mary Montana MD [address] [place] [phone] 03/25/19 documented as of this encounter
--- OUTSIDE RECORDS SUMMARY | 2024-09-15 00:28 | XMS_ITS | Encounter Summary ---
Author Organization [facility] Address [address] [place] [address] Care Team Providers Care Communications Instructor Name Role Phone Mary Montana MD Unavailable Mary Montana MD Primary Care Provider [phone] Reason for Visit * Reason Onset Date Comments Pre-visit Planning 11/09/2019 Encounter Details Date Type Department Care Team (Late st Contact Info) Description 11/09/2019 Telephone [facility] OBGYN [address] [place] [address] Roxanna Lala RN Pre-visit Planning Social History Tobacco Use Types Packs/Day Years Used Date Smoking Tobacco: Never Smokeless Tobacco: Never Alcohol Use Standard Drinks/Week Comments Yes 0 (1 standard drink = 0.6 oz pur e alcohol) 1 x pr wk Hunger Vital Sign Answer Date Recorded Worried About Running Out of Food in the Last Ye ar Never true 11/11/2019 Ran Out of Food in the Last Year Never true 11/11/2019 PRAPARE - Transportation Answer Date Re corded Lack of Transportation (Medical) No 11/11/2019 Lack of Transportation (Non-Medical) No 11/11/2019 Comments No Sex and Gender Information Value [...] encounter Miscellaneous Notes * Telephone Encounter - Roxanna Lala RN - 11/12/2019 0830 EDT Telemed IVAP completed * Telephone Encounter - Jenifer Stewart RN - 11/10/2019 1040 EDT Jonathon Mcknight is scheduled for 11/11/2019 IVAP TELEMED NURSE VISIT AT 1:20. fyi * Telephone Encounter - Denice Mattson MA - 11/10/2019 1023 EDT Patient scheduled for an RN IVAP Telemed visit tomorrow 11/10 at 1:20 * Telephone Encounter - Roxanna Lala RN - 11/09/2019 1026 EDT LM for pt to call to schedule Telmed IVAP with RN prior to in office IVAP with on 11/15/19 documented in this encounter Plan of Treatment Not on file documented as of this encounter Visit Diagnoses Not on filedocumented in this encounter Care Teams Communications Instructor Relationship Specialty Start Date End Date Mary Montana MD [address] [place] [phone] PCP - General 04/05/19 10/27/22 Mary Montana MD [address] [place] [phone] 03/25/19 documented as of this encounter
--- OUTSIDE RECORDS SUMMARY | 2024-09-15 00:28 | XMS_ITS | Encounter Summary ---
Author Organization [facility] Address [address] [place] [address] Care Team Providers Care Matrix Inspector Name Role Phone Mary Montana MD Unavailable Mary Montana MD Primary Care Provider [phone] Reason for Visit * Reason Onset Date Comments Results 10/24/2019 Progesterone lev el Encounter Details Date Type Department Care Team (Late st Contact Info) Description 10/24/2019 Telephone [facility] [address] [place], [place] [phone] Arvind Mcgarry MD [address] [place] [phone] Results (Progesterone level) Social History Tobacco Use Types Packs/Day Years [...] encounter Miscellaneous Notes * Telephone Encounter - Stephanie Quinones RN - 10/25/2019 0854 EDT Call to Jonathon to advise that she has progesterone refills available at [facility]. She will call to request the refill today. * Telephone Encounter - Arvind Mcgarry MD - 10/24/2019 7541 EDT TC to Jonathon regarding P4 result from Friday [facility] [place] draw. Several outbound calls during the day went to voicemail. Received call back through PAS approximately 8 PM from patient. Informed patient that Friday draw at [facility] [place] was not run until midfriday and eventually [id number].. Patient verbalizes understanding of result and inquires about whether or not she can stop all BREANNE injections given the level continually >100. I disscussed with the patient that we have a strong recommendation for her to continue through 10w0d GA regardless and rationale for this. The patient stated she will continue with the injections but would not want to decrease the dose any more if it meant she needed to have additional progesterone levels checked. Lastly, I inquired whether or not thepatient would prefer to use vaginal progesterone over the IM injections and she stated she has already considered this and prefers to continue with injections. The patient does need one more refill on the BREANNE (has about 1-2 weeks left of medication), but alsoneeds a refill on progesterone needles and syringes (has only about 3 days left). Will route to staff development coordinator rn for Rx refill to her preferred pharmacy (on file). No other questions. Verbalized understanding of importance with BREANNE injections. Implications of noncompliance were explicitly discussed including suddent miscarriage. Electronically signed by: Arvind Mcgarry MD, PGY6 Fellow Reproductive Endocrinology & Infertility [facility] 10/24/2019 / 23:30 documented in this encounter Plan of Treatment Not on file documented as of this encounter Visit Diagnoses Not on filedocumented in this encounter Care Teams Matrix Inspector Relationship Specialty Start Date End Date Mary Mnotana MD [address] [place] [phone] PCP - General 04/05/19 10/27/22 Mary Montana MD [address] [place] [phone] 03/25/19 documented as of this encounter
--- OUTSIDE RECORDS SUMMARY | 2024-09-15 00:28 | XMS_ITS | Encounter Summary ---
Author Organization [facility] Address [address] [place] [address] Care Team Providers Care Commercial Door Installer Name Role Phone Mary Montana MD Unavailable Mary Montana MD Primary Care Provider [phone] Reason for Visit * Reason Onset Date Comments Other 11/09/2020 COVID Call [facility] r-Symptomatic Encounter Details Date Type Department Care Team (Late st Contact Info) Description 11/11/2020 Telephone [facility] - Mobile Testing Department [address] [place] [id number] Miguelina Badillo, TANIA Other (COVID Call Center-Symptomatic) Social History Tobacco Use Types Packs/Day Years [...] encounter Miscellaneous Notes * Telephone Encounter - Miguelina Badillo - 11/11/2020 1155 EDT C-19 screening recommended by provider. Routed for testing ordering. Vehicle (Unsure will call to follow-up) Color: Cell #: [phone] Spoke to patient and verbally gave instructions for Testing Facility. Patient is instructed to be there at 1030 am sharp. This patient is calling the [facility] COVID-19 information center with concern for COVID-19. The patient has had congestion , headache, runny nose and sore throat for 2 days. COVID-19 testing is indicated according to current [facility] algorithm. The patient has not been previously tested for Covid-19. (if yes - list date of testing) Patient is not a health care worker. Patient is not immunocompromised. The patient is not a resident of a longterm or assisted living facility. (If patient is, home health will facilitate testing once ordered). Patient was not offered a telehealth visit with their PCP or Express [facility] provider to further discuss symptoms and patient declined. This patient is currently stable, and was advised to go to the ER or call 911 with any worsening symptoms. COVID-19 Home Instructions COVID-19 is caused by a virus, spread mainly by close contact, being within 6 feet of a person withthe illness, especially if both persons aren't wearing a mask and are indoors. Prevention measures include limiting contacts with persons that aren't in your household, wearing amask and maintaining at least 6 feet distance when you are around someone that isn't from your household, covering your cough or sneeze, and practicing good handwashing. Wiping down surfaces that aretouched regularly is recommended as well. Common symptoms include cough, fever, shortness of breath, nasal congestion, fatigue, muscle aches,headaches, loss of taste and/or smell, nausea, vomiting and/or diarrhea. If you are ill or think you might be ill with COVID-19, we recommend getting plenty of rest, staying hydrated, and managing symptoms. You may take Tylenol or ibuprofen for body aches and fevers, though we recommend checking with your PCP prior to taking over the counter medications if you have chronic medical conditions. It is important to seek medical care if you have worsening symptoms of shortness of breath, weakness, dizziness, or have symptoms that persist or are worsening after 14 days. Please contact your PCP office or our Express[facility] clinic if symptoms worsen or persist beyond 14 days. Call for immediate care if you have a true medical emergency. What do I do while I'm waiting for my test result? You should self-isolate, which means stay at home and separate yourself from others. Do not leave your home, ie: do not go to the grocery store, pharmacy, non-emergency medical appointments, or to visit friends or family. If you might have been exposed to COVID-19 (ie: travel to a high-risk area, exposure to someone with a possible or known COVID positive case), you should self-isolate as well, for 14 days following exposure, or for 7 days with negative COVID-19 test. You may discontinue self-isolation when: You have a negative test or you are fever free for 24 hours without fever reducing medication AND 10 days have passed since your symptoms started AND your symptoms are improving. How will I get my test results? A nurse from the call center will call with your test results, typically within 3-4 days of the test. Log into your patient portal, [employer] to be notified immediately of your result by email. Ask for more information about [employer] at the testing site. You will also be given educational information at the testing site. If you test positive, you will be getting more information from an clinician about when and how to follow up with a healthcare provider. Please visit the [facility] and the [facility] website for more information. documented in this encounter Plan of Treatment Not on file documented as of this encounter Visit Diagnoses Diagnosis Contact with and (suspected) exposure to covid-19- Primary documented in this encounter Care Teams Commercial Door Installer Relationship Specialty Start Date End Date Mary Montana MD [address] [place] [address] PCP - General 04/05/19 10/27/22 Mary Montana MD [address] [place] [address] 03/25/19 documented as of this encounter
--- OUTSIDE RECORDS SUMMARY | 2024-09-15 00:28 | XMS_ITS | Encounter Summary ---
Author Organization [facility] Address [address] [place] [address] Care Team Providers Care Leather Production Artisan Name Role Phone Mary Montana MD Unavailable Mary Montana MD Primary Care Provider [phone] Reason for Referral * SLITTING AND SHIPPING SUPERVISOR (Routine) - Specialty Report Received Specialty Diagnoses / Procedures Referred By [facility] Referred To Contact Diagnoses resulting from assisted reproductive technology in first trimester Procedures OB FIRST TRIMESTER (LESS THAN 14 WEEKS) TRANSVAGINAL Gary Lion MD Phone: tel: fax: Referral ID Status Reason Start Date Expiration Date V isits Requested Visits Authorized [id number] Specialty Report Received 10/18/2019 1 1 Reason for Visit * Reason Comments Follow-up Encounter Details Date Type Department Care Team (Latest Contact Info) Description 10/18/2019 8:45 EDT Office Visit [facility] Inf[facility] - [facility] [address], [place] [id number] Gary Lion MD [address] [place] [address] [phone] resulting from assisted reproductive technology in first trimester (Primary Dx) Social History Tobacco Use Types [...] documented in this encounter Progress Notes * Jose David Pearson MD - 10/18/2019 0845 EDT DW patient: -EGA is 6w3d, the LARISA based on day 5 single ET is 06/09/2020. -We will repeat her Ob US in 2 weeks. -Continue PNV, all other medications reviewed. -Reports injection site itching/discomfort from the P4 injections, has been using hydrocortisone cream. Will check a P4 level today. Anticipate continuing P4 in oil until 10 weeks gestation -DW pt establishing care with an Ob, recommendations given. -Advised to call with bleeding, pain or concerns. -The patient has additional embryos cryopreserved: - 3AA - 4BB - 3BB, 3BA - 3CA, cav morula - Cav morula, cav morula - We discussed the storage fees and advised the patient to inform us of a change in her address ruy to avoid embryos being discarded if we are unable to locate her. The patient was discussed with Dr Lion (JULIAN Attending) Jose David Pearson MD, PGY5 Fellow Reproductive Endocrinology & Infertility [facility] 10/18/2019 / 9:11 Attestation statement: I discussed the patient with the resident/fellow at the time of the visit. Iagree with the findings and the plan of care documented in the resident's/fellow's note. Gary Lion MD Reproductive Endocrinology and Infertility documented in this encounter Miscellaneous Notes * Addendum Note - Gary Lion MD - 10/18/2019 0845 EDTAddended by: GARY LION on: 11/22/2019 15:09 Modules accepted: Level of Service documented in this encounter Plan of Treatment Not on file documented as of this encounter Results * US OB FIRST TRIMESTER (LESS THAN 14 WEEKS) TRANSVAGINAL (11/03/2019 9:48 EDT) Anatomical Region Laterality Modality Pelvis Ultrasound 11/03/2019 9:41 EDT Narrative 11/03/2019 10:11 EDT Indication Early assessment, s/p day 5 single ET on 09/22/2019. History ======= General History Height 165 cm Height (ft) ?5 ft Height (in) ?5 in Previous Outcomes ?4 Para ?? 2 Abortions (A) ??1 Maternal Assessment Height 165 cm Height (ft) ?5 ft Height (in) ?5 in Physical Exam Initial weight 85 kg Initial weight (lb) ?188 lb Initial BMI ?31.29 kg/m?? Number of fetuses: 1. Dating ======= Conception: ?Invitro fertilization Embryo transfer on: ?09/22/2019 IVF / ET ?? 5 d GA by IVF / ET 8 w + 5 d LARISA by IVF / ET: ?? 06/09/2020 Ultrasound examination on: 11/03/2019 GA by U/S based upon: ??CRL GA by U/S ??8 w + 3 d LARISA by U/S: ?06/11/2020 Assigned: ??Dating performed on 10/18/2019, based on the IVF / ET date Assigned GA ?8 w + 5 d Assigned LARISA: ??06/09/2020 Assessment Gestational sac: ?? Visualized Location: ??Intrauterine Yolk sac: ??Visualized Amniotic sac: ??Visualized Embryo: ?Visualized CRL ?19.2 mm 34% 8w 3d Hadlock Cardiac activity: ??Present FHR ?185 bpm Maternal Structures Uterus / Cervix Uterus details: ?No abnormalities detected Uterus position: ?? anteverted Cervix: ?Appears normal Ovaries / Tubes / Adnexa Rt ovary: ??Visualized, normal appearance Rt ovary other findings: ?? Limited view of ovary seen previously Lt ovary: ??Visualized, normal appearance Lt ovary other findings: ?? Limited view of ovary seen previously Pouch of Gibson / Other Structures Cul de Sac: ?Normal Free fluid: ?Free fluid visualized Amount of free fluid: ??mild Method ======== Transvaginal ultrasound examination. View: Sufficient. Impression 1st Trimester ,Transvaginal-limited OB scan +[id number]. Single viable intrauterine (IUP). Good interval growth. Comment ========= Results discussed w/patient. DATE OF SERVICE: 11/03/2019 Procedure Note Palomo Dee MD - 11/03/2019 Indication Early assessment, s/p day 5 single ET on 09/22/2019. History ======= General History Height 165 cm Height (ft) 5 ft Height (in) 5 in Previous Outcomes 4 Para 2 Abortions (A) 1 Maternal Assessment Height 165 cm Height (ft) 5 ft Height (in) 5 in Physical Exam Initial weight 85 kg Initial weight (lb) 188 lb Initial BMI 31.29 kg/m?? Number of fetuses: 1. Dating ======= Conception: Invitro fertilization Embryo transfer on: 09/22/2019 IVF / ET 5 d GA by IVF / ET 8 w + 5 d LARISA by IVF / ET: 06/09/2020 Ultrasound examination on: 11/03/2019 GA by U/S based upon: CRL GA by U/S 8 w + 3 d LARISA by U/S: 06/11/2020 Assigned: Dating performed on 10/18/2019, based on the IVF / ET date Assigned GA 8 w + 5 d Assigned LARISA: 06/09/2020 Assessment Gestational sac: Visualized Location: Intrauterine Yolk sac: Visualized Amniotic sac: Visualized Embryo: Visualized CRL 19.2 mm 34% 8w 3d Hadlock Cardiac activity: Present FHR 185 bpm Maternal Structures Uterus / Cervix Uterus details: No abnormalities detected Uterus position: anteverted Cervix: Appears normal Ovaries / Tubes / Adnexa Rt ovary: Visualized, normal appearance Rt ovary other findings: Limited view of ovary seen previously Lt ovary: Visualized, normal appearance Lt ovary other findings: Limited view of ovary seen previously Pouch of Gibson / Other Structures Cul de Sac: Normal Free fluid: Free fluid visualized Amount of free fluid: mild Method ======== Transvaginal ultrasound examination. View: Sufficient. Impression 1st Trimester ,Transvaginal-limited OB scan +[id number]. Single viable intrauterine (IUP). Good interval growth. Comment ========= Results discussed w/patient. DATE OF SERVICE: 11/03/2019 Gary Lion MD IMG US OB ORDERABLES Final R esult documented in this encounter Visit Diagnoses Diagnosis resulting from assisted reproductive technology in first trimester- Primary resulting from assisted reproductive technology in first trimester documented in this encounter Care Teams Leather Production Artisan Relationship Specialty Start Date End Date Mary Montana MD [address] [place] [address] PCP - General 04/05/19 10/27/22 Mary Montana MD [address] [place] [address] 03/25/19 documented as of this encounter
--- OUTSIDE RECORDS SUMMARY | 2024-09-15 00:28 | XMS_ITS | Encounter Summary ---
Author Organization [facility] Address [address] [place] [address] Care Team Providers Care Director Of Patient Financial Services Name Role Phone Mary Montana MD Unavailable Mray Montana MD Primary Care Provider [phone] Livier Valdez NP Primary Care Provider [phone] Encounter Details Date Type Department Care Team (Late st Contact Info) Description 11/15/2019 Results Only Imaging [facility] [place] Results [address] [place] [address] Jodie Sewell MD [address] [facility], [address] [place] [address] Social History Tobacco Use Types [...] FIRST TRIMESTER (LESS THAN 14 WEEKS) TRANSVAGINAL 11/15/2019 11:50 EDT documented in this encounter Results * US OB FIRST TRIMESTER (LESS THAN 14 WEEKS) TRANSVAGINAL (11/15/2019 11:50 EDT) Anatomical Region Laterality Modality Pelvis Ultrasound 11/15/2019 10:0 4 EDT Narrative 11/15/2019 11:50 EDT ? EXAM: ULTRASOUND/TRANSVAGINAL - OB (LEVEL EX. D/ (1004) ? CLINICAL INFORMATION: ? O09.91 SUPERVISION OF HIGH RISK IN FIRST TRIMESTER ? See attached report. ??Report also available in PACS. ? ANNABELLAP:Chanel ?Reported By: Gary Marquis MD ? CC: ? Transcribed Date/Time: 11/15/2019 (1150) ? Sanitation Supervisor: MARCE ? Printed Date/Time: 11/15/2019 (1150) ? PAGE 1 ? Signed Report ? Procedure Note Gary Marquis MD - 11/15/2019 EXAM: ULTRASOUND/TRANSVAGINAL - OB (LEVEL EX. D/ (1004) CLINICAL INFORMATION: O09.91 SUPERVISION OF HIGH RISK IN FIRST TRIMESTER See attached report. Report also available in PACS. JSP:Kajeffery Reported By: Gary Marquis MD CC: Transcribed Date/Time: 11/15/2019 (1150) Sanitation Supervisor: MARCE Printed Date/Time: 11/15/2019 (1150) PAGE 1 Signed Report Jodie Sewell MD [facility] OB ORDERABLES Final Resu lt documented in this encounter Visit Diagnoses Not on filedocumented in this encounter Additional Health Concerns Infection Onset Date Last Indicated Resolved Time R/O COVID-19 04/16/2023 04/16/2023 04/16/2023 23:3 7 EDT COVID-19 04/16/2023 04/16/2023 05/06/2023 22:1 5 EDT documented as of this encounter Care Teams Director Of Patient Financial Services Relationship Specialty Start Date End Date Mary Montana MD [address] [place] [address] PCP - General 04/05/19 10/27/22 Livier Valdez NP [address] [place] [address] PCP - General Family Medicine - Primary Care 10/28/22 Mary Montana MD [address] [place] [phone] 03/25/19 documented as of this encounter
--- OUTSIDE RECORDS SUMMARY | 2024-09-15 00:28 | XMS_ITS | Encounter Summary ---
Author Organization [facility] Address [address] [place] [address] Care Team Providers Care Teleradiologist Name Role Phone Mary Montana MD Unavailable Mary Montana MD Primary Care Provider Reason for Referral * SALES REPRESENTATIVE EDUCATION COURSES (Routine) - Specialty Report Received Specialty Diagnoses / Procedures [facility] To Contact Diagnoses resulting from assisted reproductive technology in first trimester Procedures OB FIRST TRIMESTER (LESS THAN 14 WEEKS) TRANSVAGINAL Gary Lion MD Phone: tel: fax: Referral ID Status Reason Start Date Expiration Date V isits Requested Visits Authorized [id number] Specialty Report Received 10/18/2019 1 1 Reason for Visit * SALES REPRESENTATIVE EDUCATION COURSES (Routine) - Specialty Report Received Specialty Diagnoses / Procedures Referred By [facility] t Referred To Contact Diagnoses resulting from assisted reproductive technology in first trimester Procedures US OB FIRST TRIMESTER (LESS THAN 14 WEEKS) TRANSVAGINAL Gary Lion MD Phone: tel: fax: Referral ID Status Reason Start Date Expiration Date V isits Requested Visits Authorized [id number] Specialty Report Received 10/18/2019 1 1 Encounter Details Date Type Department Care Team (Latest Contact Info) Description 11/03/2019 9:19 EDT - 11/04/2019 23:59 EDT Hospital Encounter [facility] [place] [address] resulting from assisted reproductive technology in first [...] have Coronavirus / COVID-19? No / Unsure 11/03/2019 9:20 EDT documented as of this encounter Functional [...] MULTIVITAMIN GUMMIES ORAL) Take by mouth. 11/11/2019 PREPLUS 27 mg iron- 1 mg tablet tablet TK 1 T PO QD 10/21/2019 04/26/2020 progesterone in oil 50 mg/mL injection Inject [...] TRIMESTER (LESS THAN 14 WEEKS) TRANSVAGINAL Routine 11/03/2019 9:48 EDT resulting from assisted reproductive technology in [...] Sufficient. Impression 1st Trimester ,Transvaginal-limited OB scan +[id number]. Single viable intrauterine (IUP). Good interval growth. [...] Sufficient. Impression 1st Trimester ,Transvaginal-limited OB scan +[id number]. Single viable intrauterine (IUP). Good interval growth. Comment ========= Results discussed w/patient. DATE OF SERVICE: 11/03/2019 Gary Lion MD [facility] OB ORDERABLES Final R esult documented in this encounter Visit Diagnoses Diagnosis resulting from assisted reproductive technology in first trimester documented in this encounter Care Teams Teleradiologist Relationship Specialty Start Date End Date Mary Montana MD [address] [place] [phone] PCP - General 04/05/19 10/27/22 Mary Montana MD [address] [place] [address] 03/25/19 documented as of this encounter
--- OUTSIDE RECORDS SUMMARY | 2024-09-15 00:28 | XMS_ITS | Encounter Summary ---
Author Organization [facility] Address [address] [place] [address] Care Team Providers Care Post Acute Care Nurse Practitioner Name Role Phone Mary Montana MD Unavailable Mary Montana MD Primary Care Provider [phone] Livier Valdez NP Primary Care Provider [phone] Encounter Details Date Type Department Care Team (Late st Contact Info) Description 10/24/2019 Lab Requisition [facility] Pathology & Laboratory Medicine - [facility] [address] [place] [address] Unknown, Provider, Social History Tobacco Use Types Packs/Day Years [...] Procedure Name Priority Date/Time Associated Diagnosis Comments PROGESTERONE Routine 10/23/2019 11:21 EDT documented in this encounter Results * PROGESTERONE (10/23/2019 11:21 EDT) Progesterone 103.9 See Table ng/mL 10/24/2019 18:03 EDT [facility] Comment: Female Reference Ranges: PHYSIOLOGICAL STATUS ?EXPECTED RANGE ? >= 18 Yrs Menstruating: (Non-) Follicular Phase: ? <= 1.4 ng/mL Luteal Phase: ? 3.3 - 25.6 ng/mL Mid-luteal Phase: ? 4.4 - 28.0 ng/mL Postmenopausal: ? <= 0.7 ng/mL : -------- First Trimester: ?11.2 - 90.0 ng/mL Second Trimester: ? 25.6 - 89.4 ng/mL Third Trimester: ?48.4 - 422.5ng/mL For ectopic , consult a pathologist Reference Ranges for female patients <18 years old have not been established. Blood VENOUS BLOOD / Unknown 10/23/2019 11:21 EDT 10/24/2019 16:36 EDT us Provider Unknown CHEMISTRY & BLOOD GAS ORDERA BLES Final Result [facility] [address] [place] [address] documented in this encounter Visit Diagnoses Not on filedocumented in this encounter Additional Health Concerns Infection Onset Date Last Indicated Resolved Time R/O COVID-04/16/2023 04/16/2023 04/16/2023 23:3 7 EDT COVID-04/16/2023 04/16/2023 05/06/2023 22:1 5 EDT documented as of this encounter Care Teams Post Acute Care Nurse Practitioner Relationship Specialty Start Date End Date Mary Montana MD [address] [place] [phone] PCP - General 04/05/19 10/27/22 Livier Valdez, CLIENT HR MANAGER [address] [place], [place] [phone] PCP - General Family Medicine - Primary Care 10/28/22 Mary Montana MD [address] [place] [phone] 03/25/19 documented as of this encounter
--- OUTSIDE RECORDS SUMMARY | 2024-09-15 00:28 | XMS_ITS | Encounter Summary ---
Author Organization [facility] Address [address] [place] [address] Care Team Providers Care Maintenance Shop Manager Name Role Phone Mary Montana MD Unavailable Mary Montana MD Primary Care Provider [phone] Encounter Details Date Type Department Care Team (Latest Contact Info) Description 11/03/2019 Travel Social History Tobacco Use Types Packs/Day [...] on filedocumented in this encounter Care Teams Maintenance Shop Manager Relationship Specialty Start Date End Date Mary Montana MD [address] [place] [phone] PCP - General 04/05/19 10/27/22 Mary Montana MD [address] [place] [address] 03/25/19 documented as of this encounter
--- OUTSIDE RECORDS SUMMARY | 2024-09-15 00:28 | XMS_ITS | Encounter Summary ---
Author Organization [facility] Address [address] [place] [address] Care Team Providers Care Child Care Sitter Name Role Phone Mary Montana MD Unavailable Mary Montana MD Primary Care Provider [phone] Livier Valdez NP Primary Care Provider [phone] Encounter Details Date Type Department Care Team (Late st Contact Info) Description 10/20/2019 Lab Requisition [facility] Pathology & Laboratory Medicine - [facility] [address] [place] [address] Unknown, Provider, Social History Tobacco Use Types [...] Priority Date/Time Associated Diagnosis Comments PROGESTERONE Routine 10/20/2019 8:14 EDT documented in this encounter Results * PROGESTERONE (10/20/2019 8:14 EDT) Progesterone 124.7 See Table ng/mL 10/20/2019 13:41 EDT [facility] Comment: Female Reference Ranges: PHYSIOLOGICAL [...] been established. Blood VENOUS BLOOD / Unknown 10/20/2019 8:14 EDT 10/20/2019 11:47 EDT us Provider Unknown CHEMISTRY & BLOOD GAS ORDERA BLES Final Result [facility] [address] [place] [address] documented in this encounter Visit Diagnoses Not on filedocumented in this encounter Additional Health Concerns Infection Onset Date Last Indicated Resolved Time R/O COVID-04/16/2023 04/16/2023 04/16/2023 23:3 7 EDT COVID-04/16/2023 04/16/2023 05/06/2023 22:1 5 EDT documented as of this encounter Care Teams Child Care Sitter Relationship Specialty Start Date End Date Mary Montana MD [address] [place] [phone] PCP - General 04/05/19 10/27/22 Livier Valdez, MEDICAL TERMINOLOGIST [address] [place], [place] [phone] PCP - General Family Medicine - Primary Care 10/28/22 Mary Montana MD [address] [place] [phone] 03/25/19 documented as of this encounter
--- OUTSIDE RECORDS SUMMARY | 2024-09-15 00:28 | XMS_ITS | Encounter Summary ---
Author Organization [facility] Address [address] [place] [address] Care Team Providers Care Horizontal Boring Mill Operator Name Role Phone Mary Montana MD Unavailable Mary Montana MD Primary Care Provider [phone] Encounter Details Date Type Department Care Team (Late st Contact Info) Description 07/12/2020 Results Only [facility] [phone] Rajesh Deleon MD [address] [place] [phone] Social History Tobacco Use Types Packs/Day Years [...] Procedure Name Priority Date/Time Associated Diagnosis Comments LIPASE - [facility] Routine 07/12/2020 4:15 EST COMPLETE BLOOD COUNT WITH DIFFERENTIAL (AUTO) Routine 07/12/2020 4:15 EST C REACTIVE PROTEIN Routine 07/12/2020 4: 15 EST COMPREHENSIVE METABOLIC PANEL (CMP) Routine 07/12/2020 4:15 EST documented in this encounter Results * LIPASE - [facility] (07/12/2020 4:15 EST) LIPASE SERPL-CCNC - CV 100 <251 U/L 07/12/2020 4:46 EST [facility] 07/12/2020 4:15 EST 07/12/2020 4:26 EST Rajesh Deleon MD CHEMISTRY & BLOOD GAS ORDERABLES Final Result Performing Organization Address City/State/[facility] Co de Phone Number [facility] [address] [place] [phone] * C REACTIVE PROTEIN (07/12/2020 4:15 EST) C-Reactive Protein <5.0 <10.0 mg/L 07/12/2020 4:46 EST [facility] 07/12/2020 4:15 EST 07/12/2020 4:26 EST Rajesh Deleon MD CHEMISTRY & BLOOD GAS ORDERABLES Final Result [facility] [address] [place] [address] * (ABNORMAL) COMPREHENSIVE METABOLIC PANEL (CMP) (07/12/2020 4:15 EST) Albumin % 4.2 3.4 - 4.9 g/dL 07/12/2020 4:46 [facility] ALKALINE PHOSPHATASE - [facility] 110 38 - 126 U/L 07/12/2020 4:46 [facility] BILIRUBIN TOTAL 0.3 0.2 - 1.3 mg/dL 07/12/2020 4:46 [facility] BUN - [facility] 11 10 - 26 mg/dL 07/12/2020 4:46 [facility] CALCIUM - [facility] 9.2 8.5 - 10.5 mg/dL 07/12/2020 4:46 [facility] Chloride 106 96 - 110 mmol/L 07/12/2020 4:46 [facility] CO2 Total 25 22 - 32 mEq/L 07/12/2020 4:46 [facility] CREATININE 0.87 0.52 - 1.04 mg/dL 07/12/2020 4:46 [facility] eGFR >60 07/12/2020 4:46 [facility] Comment: Chronic renal impairment is defined as GFR <60 Multiply result by 1.210 for patients. eGFR calculated using the IDMS-traceable MDRD Study Equation. ??(effective 06/13/2014) Anion Gap 10 0 - 18 07/12/2020 4:46 [facility] GLUCOSE - [facility] 104(H) 70 - 100 mg/dL 07/12/2020 4:46 [facility] Potassium 4.0 3.5 - 5.0 mEq/L 07/12/2020 4:46 [facility] Sodium 141 136 - 145 mEq/L 07/12/2020 4:46 [facility] TOTAL PROTEIN - [facility] 7.4 6.2 - 8.2 gm/dL 07/12/2020 4:46 [facility] SGOT/AST - [facility] 51(H) 14 - 36 U/L 07/12/2020 4:46 [facility] SGPT/ALT - [facility] 65(H) 0 - 35 U/L 0 4:46 [facility] 07/12/2020 4:15 EST 07/12/2020 4:26 EST us Rajesh Deleon MD CHEMISTRY & BLOOD GAS ORDERABLES Final Result [facility] [address] [place] [address] * (ABNORMAL) COMPLETE BLOOD COUNT WITH DIFFERENTIAL (AUTO) (07/12/2020 4:15 EST) Gran # 4.6 2.2 - 8.85 10e3/uL 07/12/2020 4:30 [facility] BASO # - [facility] 0.05 0.01 - 0.11 10e/uL 07/12/2020 4:30 [facility] BASO % - [facility] 1 0 - 2 % 07/12/2020 4:30 [facility] EOS # - [facility] 0.34 0.03 - 0.61 10e3/ul 07/12/2020 4:30 [facility] EOS % - [facility] 4 0 - 5 % 07/12/2020 4:30 [facility] GRAN % - [facility] 55.1 40 - 80 % 07/12/2020 4:30 [facility] HEMATOCRIT - [facility] 41.1 34.9 - 44.4 % 07/12/2020 4:30 [facility] HEMOGLOBIN - [facility] 13.2 11.6 - 15.2 g/dl 07/12/2020 4:30 [facility] IG# - [facility] 0.02 0 - 0.7 10e3/uL 07/12/2020 4:30 [facility] IG% - [facility] 0.2 0 - 0.9 % 07/12/2020 4:30 [facility] LYMPH # - [facility] 2.8 1.09 - 3.3 10e3/ul 07/12/2020 4:30 [facility] LYMPH% - [facility] 33.3 20 - 40 % 07/12/2020 4:30 [facility] MEAN CORPUSCULAR HGB - [facility] 26.6(L) 26.7 - 33.3 pg 07/12/2020 4:30 [facility] MEAN CORPUSCULAR HGB CONC - [facility] 32.1 32.1 - 35.9 g/dL 07/12/2020 4:30 [facility] MEAN CELL VOLUME - [facility] 82.9 81 - 98 fl 07/12/2020 4:30 [facility] MONO # - [facility] 0.6 0.1 - 0.8 10e3/uL 07/12/2020 4:30 [facility] MONO% - [facility] 6.7 0 - 12 % 07/12/2020 4:30 [facility] PLATELET COUNT 279 141 - 377 10e3/ul 07/12/2020 4:30 [facility] RED BLOOD COUNT - [facility] 4.96 3.86 - 5.04 10e3/ul 07/12/2020 4:30 [facility] RED CELL DISTRI WIDTH - [facility] 12.7 <14.7 % 07/12/2020 4:30 [facility] WHITE BLOOD COUNT - [facility] 8.3 4.0 - 12.4 10e3/ul 07/12/2020 4:30 [facility] 07/12/2020 4:15 EST 07/12/2020 4:26 EST us Rajesh Deleon MD HEMATOLOGY & PF4 ORDERABLES Gissell l Result [facility] [address] [place] [address] documented in this encounter Visit Diagnoses Not on filedocumented in this encounter Care Teams Horizontal Boring Mill Operator Relationship Specialty Start Date End Date Mary Montana MD [address] [place] [phone] PCP - General 04/05/19 10/27/22 Mary Montana MD [address] [place] [address] 03/25/19 documented as of this encounter
--- OUTSIDE RECORDS SUMMARY | 2024-09-15 00:28 | XMS_ITS | Encounter Summary ---
Author Organization [facility] Address [address] [place] [address] Care Team Providers Care Helper Teacher Name Role Phone Mary Montana MD Unavailable Mary Montana MD Primary Care Provider [phone] Reason for Visit * Reason Onset Date Comments Appointment Related 11/15/2019 Encounter Details Date Type Department Care Team (Late st Contact Info) Description 11/15/2019 Telephone [facility] - [facility] [address] [place] [address] Jodie Sewell MD [address] [facility] [place] [address] Appointment Related Social History Tobacco Use Types [...] encounter Miscellaneous Notes * Telephone Encounter - Adry Oneill MD - 11/20/2019 1213 EDT Called pt and reviewed available lab results. cfDNA sand CF/SMA still pending. She had a bad experience here on Friday; ended up here for four hours. There was a scheduling conflict and error that her apt was not moved. I did apologize for this but she does intend to transfer her care elsewhere looking for a better fit. * Telephone Encounter - [place] RN - 11/19/2019 1152 EDT Pt declines f/u telemed and declines future visits. Pt waiting on lab results, looks like final results of initial labs that were ordered by . Pt advised I would forward to to f/u on results with pt. Pt agrees. * Telephone Encounter - Jodie Sewell MD - 11/15/2019 1029 EDT Pt needs a nurse telemed visit at 16 weeks. Please schedule. TY documented in this encounter Plan of Treatment Not on file documented as of this encounter Visit Diagnoses Not on filedocumented in this encounter Care Teams Helper Teacher Relationship Specialty Start Date End Date Mary Montana MD [address] [place] [address] PCP - General 04/05/19 10/27/22 Mary Montana MD [address] [place] [address] 03/25/19 documented as of this encounter
--- OUTSIDE RECORDS SUMMARY | 2024-09-15 00:28 | XMS_ITS | Encounter Summary ---
Author Organization [facility] Address [address] [place] [address] Care Team Providers Care Associate Professor Of Sociology Name Role Phone Mary Montana MD Unavailable Mary Montana MD Primary Care Provider [phone] Reason for Visit * Reason Onset Date Comments Other 11/05/2019 Labs Encounter Details Date Type Department Care Team (Late st Contact Info) Description 11/05/2019 Telephone [facility] - [facility] [address] [place] [address] Jennifer Cowan MD [address] [facility] [address] [place] [address] Other (Labs) Social History Tobacco Use Types Packs/Day Years [...] Telephone Encounter - Ladi Best RN - 11/05/2019 1619 EDT Called and spoke with pt. IVF pt from [facility] - has had 2 u/s done - viable . Pt states LARISA 06/09/2020 - 9 wks today. Pt has IVAP scheduled next wed = 9wk 5d (too soon for our genetic testing). Discussed this with pt - states she was told genetics could be done at 9 wks, I explained that the company we use recommends after 10 wks for the testing. Pt verbalized understanding; would like to r/s her IVAP to when she is 10wks so she can get all of her bloodwork done the same day she she doesn't have to come to the hospital twice. I told pt someone would call her back; she states it is ok to leave the new date/time on her answering machine. \ Appt r/s to 11/15/19; called and LMOM for pt. * Telephone Encounter - Sobia Cuenca - 11/05/2019 1607 EDT Pt returned missed call from nursing. Please try again. * Telephone Encounter - Sobia Cuenca - 11/05/2019 1551 EDT Pt has initial appt with Dr. Cowan next week. She'll be almost 10 wks at that point. She wants to know if she needs to have her labs done (blood work for genetic testing) before this appt, or after? She would prefer to have it done on the same day. documented in this encounter Plan of Treatment Not on file documented as of this encounter Visit Diagnoses Not on filedocumented in this encounter Care Teams Associate Professor Of Sociology Relationship Specialty Start Date End Date Mary Montana MD [address] [place] [address] PCP - General 04/05/19 10/27/22 Mary Montana MD [address] [place] [address] 03/25/19 documented as of this encounter
--- OUTSIDE RECORDS SUMMARY | 2024-09-15 00:28 | XMS_ITS | Encounter Summary ---
Author Organization [facility] Address [address] [place] [address] Care Team Providers Care Parts Analyst Name Role Phone Mary Montana MD Unavailable Mary Montana MD Primary Care Provider Reason for Visit * Reason Onset Date Comments Other 11/13/2020 COVID 19 [facility] Encounter Details Date Type Department Care Team (Late st Contact Info) Description 11/13/2020 Telephone [facility] - Mobile Testing Department [address] [place] [address] Fabrice Ferrara, RN Other (COVID 19 call center - [facility]. ) Social History Tobacco Use Types Packs/Day [...] Encounter - Fabrice Ferrara RN - 11/13/2020 1610 EDT Pt returns her call and is notified of her negative COIVD 19 test results. documented in this encounter Plan of Treatment Not on file documented as of this encounter Visit Diagnoses Not on filedocumented in this encounter Care Teams Parts Analyst Relationship Specialty Start Date End Date Mary Montana MD [address] [place] [address] PCP - General 04/05/19 10/27/22 Mary Montana MD [address] [place] [phone] 03/25/19 documented as of this encounter
--- OUTSIDE RECORDS SUMMARY | 2024-09-15 00:28 | XMS_ITS | Encounter Summary ---
Author Organization [facility] Address [address] [place] [address] Care Team Providers Care J2Ee Application Developer Name Role Phone Mary Montana MD Unavailable Mary Montana MD Primary Care Provider [phone] Reason for Visit * Reason Onset Date Comments Results 11/23/2019 Encounter Details Date Type Department Care Team (Late st Contact Info) Description 11/23/2019 [facility] [address] [place] [address] Ladi Best RN Results Social History Tobacco Use Types Packs/Day [...] Telephone Encounter - Ladi Best RN - 11/23/2019 1101 EDT Called and spoke with pt; reviewed [employer] carrier screen and cfDNA results. Pt requested that I not tell her the predicted sex; she had her daughter get on the phone and I gave her daughter those results. Forms to front office attendant to be scanned in. documented in this encounter Plan of Treatment Not on file documented as of this encounter Visit Diagnoses Not on filedocumented in this encounter Care Teams J2Ee Application Developer Relationship Specialty Start Date End Date Mary Montana MD [address] [place] [phone] PCP - General 04/05/19 10/27/22 Mary Montana MD [address] [place] [phone] 03/25/19 documented as of this encounter
--- OUTSIDE RECORDS SUMMARY | 2024-09-15 00:28 | XMS_ITS | Encounter Summary ---
Author Organization [facility] Address [address] [place] [address] Care Team Providers Care Vascular Surgeon Name Role Phone Mary Montana MD Unavailable Mary Montana MD Primary Care Provider [phone] Reason for Visit * Reason Onset Date Comments COVID-19 01/03/2021 Covid 19 Order - Dr. Beau Campa Encounter Details Date Type Department Care Team (Late st Contact Info) Description 01/03/2021 Telephone [facility] - [facility] [address] [place] [address] Beau Campa MD [address] [place] [phone] COVID-19 (Covid 19 Order - Dr. Beau Campa) Social History Tobacco Use Types Packs/Day Years [...] encounter Miscellaneous Notes * Telephone Encounter - Bess Otto - 01/03/2021 1113 EDT Order for Covid Testing received from General Surgery: Beau Maya Scanned into patient documents in Catar[facility] DOS: 01/16/21 Testing date: 01/13/21 documented in this encounter Plan of Treatment Not on file documented as of this encounter Visit Diagnoses Not on filedocumented in this encounter Care Teams Vascular Surgeon Relationship Specialty Start Date End Date Mary Montana MD [address] [place] [phone] PCP - General 04/05/19 10/27/22 Mary Montana MD [address] [place] [phone] 03/25/19 documented as of this encounter
--- OUTSIDE RECORDS SUMMARY | 2024-09-15 00:28 | XMS_ITS | Encounter Summary ---
Author Organization [facility] Address [address] [place] [address] Care Team Providers Care Copyright Expert Name Role Phone Mary Montana MD Unavailable Mary Montana MD Primary Care Provider [phone] Encounter Details Date Type Department Care Team (Latest Contact Info) Description 10/18/2019 Documentation Visit [facility] Reproductive Medicine & Inf[facility] Center - [facility] [address] [place], [place] [phone] Sy Walters RN Encounter for assisted reproductive fertility cycle (Primary Dx) Social History Tobacco Use Types [...] documented in this encounter Progress Notes * Sy Walters, TANIA - 10/18/2019 0945 EDT Venipuncture Note: Site: right AC Needle: 23 G butterfly # of Attempts: 1 Tubes sent: 1sst , confirmed with lab cust svs. Patient tolerated well SY WALTERS RN 10/18/2019 9:58 documented in this encounter Plan of Treatment Not on file documented as of this encounter Procedures Procedure Name Priority Date/Time Associated Diagnosis Comments PROGESTERONE Routine 10/18/2019 9:47 EDT Encounter for assisted reproductive fertility cycle documented in this encounter Results * PROGESTERONE (10/18/2019 9:47 EDT) [facility] Signature Progesterone 140.8 See Table ng/mL 10/18/2019 11:53 EDT [facility] Comment: Female Reference Ranges: PHYSIOLOGICAL [...] been established. Blood VENOUS BLOOD / Unknown Venipuncture / Unknown 10/18/2019 9:47 EDT 10/18/2019 10:00 EDT us Gary Lion MD CHEMISTRY & BLOOD GAS ORDERA BLES Final Result [facility] [address] [place] [address] documented in this encounter Visit Diagnoses Diagnosis Encounter for assisted reproductive fertility cycle- Primary Encounter for assisted reproductive fertility procedure cycle documented in this encounter Care Teams Copyright Expert Relationship Specialty Start Date End Date Mary Montana MD [address] [place] [phone] PCP - General 04/05/19 10/27/22 Mary Montana MD [address] [place] [address] 03/25/19 documented as of this encounter
--- OUTSIDE RECORDS SUMMARY | 2024-09-15 00:28 | XMS_ITS | Encounter Summary ---
Author Organization [facility] Address [address] [place] [address] Care Team Providers Care Buyer Liaison Name Role Phone Mary Montana MD Unavailable Mary Montana MD Primary Care Provider [phone] Livier Valdez NP Primary Care Provider [phone] Reason for Visit * Reason Comments Other Encounter Details Date Type Department Care Team (Late st Contact Info) Description 04/26/2020 Refill [facility] - [facility] [address] [place] [address] Adry Oneill MD [address] [facility] [place] [address] Other Social History Tobacco Use [...] 05/04/2019 14:18 EDT documented in this encounter Ordered Prescriptions Prescription Sig Dispense Quantity Refills Last Filled Start Date End Date PREPLUS 27 mg iron- 1 mg tablet tablet TAKE 1 TABLET BY MOUTH EVERY DAY 90 Tab 04/26/2020 07/25/2020 documented in this encounter Plan of Treatment Not on file documented as of this encounter Visit Diagnoses Not on filedocumented in this encounter Discontinued Medications Medication Sig Discontinue Reason Start Date End Da te PREPLUS 27 mg iron- 1 mg tablet tablet TK 1 T PO QD 10/21/2019 04/26/2020 documented as of this encounter Additional Health Concerns Infection Onset Date Last Indicated Resolved Time R/O COVID-04/16/2023 04/16/2023 04/16/2023 23:3 7 EDT COVID-19 04/16/2023 04/16/2023 05/06/2023 22:1 5 EDT documented as of this encounter Care Teams Buyer Liaison Relationship Specialty Start Date End Date Mary Montana MD [address] [place] [phone] PCP - General 04/05/19 10/27/22 Livier Valdez NP [address] [place] [address] PCP - General Family Medicine - Primary Care 10/28/22 Mary Montana MD [address] [place] [phone] 03/25/19 documented as of this encounter
--- OUTSIDE RECORDS SUMMARY | 2024-09-15 00:28 | XMS_ITS | Encounter Summary ---
Author Organization [facility] Address [address] [place] [address] Care Team Providers Care Aging Box Hand Name Role Phone Mary Montana MD Unavailable Mary Montana MD Primary Care Provider [phone] Reason for Visit * Reason Onset Date Comments Coordination Of Care 10/13/2019 Encounter Details Date Type Department Care Team (Late st Contact Info) Description 10/13/2019 Telephone [facility] Reproductive Medicine & Infertility Center - [facility] [address] [place], [place] [phone] Brynn Yates, RN Coordination Of Care Social History Tobacco Use Types Packs/Day [...] encounter Miscellaneous Notes * Telephone Encounter - Brynn Yates RN - 10/13/2019 1107 EST Call from Jonathon reporting pain and itching at progesterone injection site. Called back and spoke to Jonathon, advised that unfortunately this is a common side effect of progesterone injections, recommendations include benadryl cream, bandaid and gauze to site to absorb excess liquid and ice. She will try these things and call back if she has no relief. documented in this encounter Plan of Treatment Not on file documented as of this encounter Visit Diagnoses Not on filedocumented in this encounter Care Teams Aging Box Hand Relationship Specialty Start Date End Date Mary Montana MD [address] [place] [phone] PCP - General 04/05/19 10/27/22 Mary Montana MD [address] [place] [phone] 03/25/19 documented as of this encounter
--- OUTSIDE RECORDS SUMMARY | 2024-09-15 00:28 | XMS_ITS | Encounter Summary ---
Author Organization [facility] Address [address] [place] [address] Care Team Providers Care Marine Equipment Preservation Inspector Name Role Phone Mary Montana MD Unavailable Mary Montana MD Primary Care Provider [phone] Livier Valdez NP Primary Care Provider [phone] Encounter Details Date Type Department Care Team (Late st Contact Info) Description 01/13/[address] [facility] Pathology & Laboratory Medicine - [facility] [address] [place], [place] [phone] Outr Resulting Lab, Provider Social History Tobacco [...] Priority Date/Time Associated Diagnosis Comments ZZCOVID-19 TEST [facility] PCR Today 01/13/2021 10:10 EDT COVID-19 TESTING Routine 01/13/2021 10:1 0 EDT documented in this encounter Results * COVID-19 TEST [facility] PCR (01/13/2021 10:10 EDT) Swab ENTIRE NASOPHARYNX / Unknown 01/13/2021 10:10 EDT 01/13/2021 19:53 EDT us Provider Outr Resulting Lab MICROBIOLOGY - GENER AL ORDERABLES Final Result [facility] [address] [place] [address] * COVID-19 TESTING (01/13/2021 10:10 EDT) COVID-19 rt-PCR Result Negative Negative 01/14/2021 13:05 EDT [facility] Comment: This test has [...] developed and its performance characteristics determined by [facility]. It has not been cleared or approved [...] testing. This test is based on the [facility] COVID-19 Emergency Use Authorization (EUA) assay, with minor modification as defined by the FDA Performed on the Vaybee 7 Pro RT-PCR System. Performing Lab [facility] 01/14/2021 13:05 EDT [facility] Swab 01/13/2021 10:1 0 EDT 01/13/2021 19:53 EDT us Provider Outr Resulting Lab MICROBIOLOGY - GENER AL ORDERABLES Final Result [facility] [address] [place] [address] documented in this encounter Visit Diagnoses Not on filedocumented in this encounter Additional Health Concerns Infection Onset Date Last Indicated Resolved Time R/O COVID-19 04/16/2023 04/16/2023 04/16/2023 23:3 7 EDT COVID-19 04/16/2023 04/16/2023 05/06/2023 22:1 5 EDT documented as of this encounter Care Teams Marine Equipment Preservation Inspector Relationship Specialty Start Date End Date Mary Montana MD [address] [place] [phone] PCP - General 04/05/19 10/27/22 Livier Valdez NP [address] [place] [address] PCP - General Family Medicine - Primary Care 10/28/22 Mary Montana MD [address] [place] [phone] 03/25/19 documented as of this encounter
--- OUTSIDE RECORDS SUMMARY | 2024-09-15 00:28 | XMS_ITS | Encounter Summary ---
Author Organization [facility] Address [address] [place] [address] Care Team Providers Care Lanolin Plant Operator Name Role Phone Mary Montana MD Unavailable Mary Montana MD Primary Care Provider [phone] Encounter Details Date Type Department Care Team (Late st Contact Info) Description 10/20/2019 Results Only [facility] Reproductive Medicine & Infertility Center - [address] [id number] Suzan Kaur MD [address] [place] [address], [address] [place] [address] Social History Tobacco Use Types Packs/Day Years [...] EDT) Progesterone 124.7 See Table ng/mL 10/20/2019 18:45 EDT [facility] Comment: Female Reference Ranges: PHYSIOLOGICAL STATUS ?EXPECTED [...] <18 years old have not been established. Test performed or referred by The [address] [address] 10/20/2019 8:14 EDT 10/20/2019 8:14 EDT Narrative [facility] - 10/20/2019 18:45 EDT Does PT Have a Latex Allergy? NO us Suzan Kaur MD CHEMISTRY & BLOOD GAS ORD ERABLES Final Result [facility] documented in this encounter Visit Diagnoses Not on filedocumented in this encounter Care Teams Lanolin Plant Operator Relationship Specialty Start Date End Date Mary Montana MD [address] [place] [address] PCP - General 04/05/19 10/27/22 Mary Montana MD [address] [place] [address] 03/25/19 documented as of this encounter
--- OUTSIDE RECORDS SUMMARY | 2024-09-15 00:28 | XMS_ITS | Encounter Summary ---
Author Organization [facility] Address [address] [place] [address] Care Team Providers Care Organisational Psychologist Name Role Phone Mary Montana MD Unavailable Mary Montana MD Primary Care Provider [phone] Encounter Details Date Type Department Care Team ([facility] st Contact Info) Description 10/23/2019 Results Only [facility] Reproductive Medicine [facility] Inf[facility] - [facility] [address] [place], [place] [phone] Leanna Dickinson MD [address] [place] [phone] Social History Tobacco Use Types Packs/Day Years [...] 11:21 EDT) Progesterone 103.9 See Table ng/mL 10/25/2019 10:04 EDT [facility] Comment: Female Reference Ranges: PHYSIOLOGICAL STATUS [...] established. Test performed [place] [address] 10/23/2019 11:2 1 EDT 10/23/2019 11:21 EDT Narrative [facility] - 10/25/2019 10:04 EDT Does PT Have a Latex Allergy? NO us Leanna Dickinson MD CHEMISTRY & BLOOD GAS ORDERA BLES Final Result [facility] documented in this encounter Visit Diagnoses Not on filedocumented in this encounter Care Teams Organisational Psychologist Relationship Specialty Start Date End Date Mary Montana MD [address] [place] [address] PCP - General 04/05/19 10/27/22 Mary Montana MD [address] [place] [phone] 03/25/19 documented as of this encounter
--- OUTSIDE RECORDS SUMMARY | 2024-09-15 00:28 | XMS_ITS | Encounter Summary ---
Author Organization [facility] Address [address] [place] [address] Care Team Providers Care Sales Planning Manager Name Role Phone Mary Montana MD Unavailable Mary Montana MD Primary Care Provider Reason for Visit * Reason Onset Date Comments Results 10/18/2019 Encounter Details Date Type Department Care Team (Late st Contact Info) Description 10/18/2019 Telephone [facility] Reproductive Medicine & Infertility Center - [facility] [address] [place], [place] [phone] Fany Walters RN Results Social History Tobacco Use Types [...] encounter Miscellaneous Notes * Addendum Note - Brynn Yates RN - 10/21/2019 0952 EDTAddended by: BRYNN YATES on: 10/21/2019 09:52 Modules accepted: Orders * Telephone Encounter - Brynn Yates RN - 10/21/2019 0945 EDT Call to [facility] to review P4 results. Component Latest Ref Rng & Units 10/20/2019 Progesterone See Table ng/mL 124.7 Advised her that Progesterone remains adequate, and Dr. Dickinson, she can decrease to 0.5 mL with recheck on Friday. Pt verbalized understanding. Order placed at [facility]. * Telephone Encounter - Fany aWlters RN - 10/18/2019 1608 EDT Component Latest Ref Rng & Units 10/18/2019 Progesterone See Table ng/mL 140.8 PC to [facility] to review P4 result from today. Advised per dereck Hobson to decrease dose of progesterone in oil injections to 0.75 ml and recheck P4 in 2 days. If her level remains very elevated, could consider decreasing to 0.5ml. Order faxed to [facility] . Patient verbalized understanding and agreed to have level rechecked on 10/27/19. documented in this encounter Plan of Treatment Not on file documented as of this encounter Visit Diagnoses Diagnosis resulting from assisted reproductive technology in first trimester- Primary documented in this encounter Care Teams Sales Planning Manager Relationship Specialty Start Date End Date Mary Montana MD [address] [place] [address] PCP - General 04/05/19 10/27/22 Mary Montana MD [address] [place] [phone] 03/25/19 documented as of this encounter
--- OUTSIDE RECORDS SUMMARY | 2024-09-15 00:28 | XMS_ITS | Encounter Summary ---
Author Organization [facility] Address [address] [place] [address] Care Team Providers Care Case Preparer And Liner Name Role Phone Mary Montana MD Unavailable Mary Montana MD Primary Care Provider [phone] Reason for Visit * Reason Onset Date Comments Advice Only 09/14/2020 Encounter Details Date Type Department Care Team (Late st Contact Info) Description 09/14/2020 Telephone [facility] OBGYN Services - [facility] [address] [place], [place] [phone] Gary Lion MD [address] [place] [address] [phone] Advice Only Social History Tobacco Use Types Packs/Day Years [...] Telephone Encounter - Brynn Yates RN - 09/14/2020 1610 EST Call to [facility], she states that she has left over Menopur, and wonders what do with it, and if shecould use any for a future FET. Advised she would use Lupron, progesterone and oral estrogen for FET, so can discard Menopur if she would like as it will not be needed. She asked if left over Lupron could be used, advised if is unexpired and unopened she could use it. Reviewed general time line for FET. Pt verbalized understanding and has no further questions. * Telephone Encounter - Rachel Valdez - 09/14/2020 1521 EST Patient had mailed the flyer back that she received in the mail asking what she wants to do with embryos here currently. Patient was wondering what the frozen embryo transfer process would be. She also was wondering if she could use leftover medication from prior IVF. Patient can be reached at [phone] documented in this encounter Plan of Treatment Not on file documented as of this encounter Visit Diagnoses Not on filedocumented in this encounter Care Teams Case Preparer And Liner Relationship Specialty Start Date End Date Mary Monatna MD [address] [place], [place] [address] PCP - General 04/05/19 10/27/22 Mary Montana MD [address] [place] [address] 03/25/19 documented as of this encounter
--- OUTSIDE RECORDS SUMMARY | 2024-09-15 00:28 | XMS_ITS | Encounter Summary ---
Author Organization [facility] Address [address] [place] [address] Care Team Providers Care Loan Teller Name Role Phone Mary Montana MD Unavailable Mary Montana MD Primary Care Provider [phone] Livier Valdez NP Primary Care Provider [phone] Encounter Details Date Type Department Care Team (Late st Contact Info) Description 12/13/2020 Results Only [facility] Radiology Results [address] [place] [address] Elizabeth Menjivar PA-C [address] [place] [address] Social History Tobacco Use Types Packs/Day [...] Name Priority Date/Time Associated Diagnosis Comments US ABDOMEN LIMITED 12/13/2020 8:52 EDT documented in this encounter Results * US ABDOMEN LIMITED (12/13/2020 8:52 EDT) Anatomical Region Laterality Modality Abdomen, Body Ultrasound 12/13/2020 8:49 EDT Narrative 12/13/2020 8:52 EDT ? EXAM: ULTRASOUND/RIGHT UPPER QUADRANT ? EX. D/ (0719) ? CLINICAL INFORMATION: ? R10.11 RUQ PAIN ??ENLARGED GB ? RIGHT UPPER QUADRANT ? Signs and Symptoms/Comments: ??R10.11 RUQ PAIN ??ENLARGED GB ? Comparison: 12/27/2013. ? Technique: Right upper quadrant abdominal ultrasound was performed ? with color Doppler imaging. ? FINDINGS: ? Pancreas: The visible portion of the pancreas is grossly ? unremarkable. ? Liver: The liver is normal in size (measuring 13.9 cm). The liver is ? diffusely echogenic. No focal hepatic mass is identified. ? Bile Ducts: No biliary dilatation is identified. The common bile duct ? measures 2.3 mm. ? Gallbladder: Solitary gallbladder curvilinear echogenic focus is seen ? in the gallbladder neck.. The gallbladder wall is normal in thickness ? (1.8 mm). No pericholecystic fluid is visible. No sonographic ? Gibson's sign was elicited. ? Right Kidney: The right kidney is normal in size, measuring 10.9 cm. ? No renal mass is identified. No shadowing calculi are visible. No ? hydronephrosis is present. ? IVC: The visible portion of the proximal IVC is unremarkable. ? IMPRESSION: ? 1. Solitary echogenic focus in the gallbladder neck, likely ? reflecting a solitary gallstone. However, no clear shadowing is seen ? and I cannot entirely exclude a polyp. A 6-12 month follow-up study ? is recommended. ? 2. No imaging evidence of acute cholecystitis is detected. ? 3. Fatty liver. ? REPORT SIGNED IN OTHER VENDOR SYSTEM 12/13/2020 ?Reported By: Gary Marquis MD ? CC: Beau Campa MD ? Transcribed Date/Time: 12/13/2020 (0593) ? Shower Enclosure Installer: ? Printed Date/Time: 12/13/2020 (4434) ? PAGE 1 ? Signed Report ? Procedure Note Gary Marquis MD - 12/13/2020 EXAM: ULTRASOUND/RIGHT UPPER QUADRANT EX. D/ (0719) CLINICAL INFORMATION: R10.11 RUQ PAIN ENLARGED GB RIGHT UPPER QUADRANT Signs and Symptoms/Comments: R10.11 RUQ PAIN ENLARGED GB Comparison: 12/27/2013. Technique: Right upper quadrant abdominal ultrasound was performed with color Doppler imaging. FINDINGS: Pancreas: The visible portion of the pancreas is grossly unremarkable. Liver: The liver is normal in size (measuring 13.9 cm). The liveris diffusely echogenic. No focal hepatic mass is identified. Bile Ducts: No biliary dilatation is identified. The common bileduct measures 2.3 mm. Gallbladder: Solitary gallbladder curvilinear echogenic focus isseen in the gallbladder neck.. The gallbladder wall is normal inthickness (1.8 mm). No pericholecystic fluid is visible. No sonographic Gibson's sign was elicited. Right Kidney: The right kidney is normal in size, measuring 10.9cm. No renal mass is identified. No shadowing calculi are visible. No hydronephrosis is present. IVC: The visible portion of the proximal IVC is unremarkable. IMPRESSION: 1. Solitary echogenic focus in the gallbladder neck, likely reflecting a solitary gallstone. However, no clear shadowing isseen and I cannot entirely exclude a polyp. A 6-12 month follow-up study is recommended. 2. No imaging evidence of acute cholecystitis is detected. 3. Fatty liver. REPORT SIGNED IN OTHER VENDOR SYSTEM 12/13/2020 Reported By: Gary Marquis MD CC: Beau Campa MD Transcribed Date/Time: 12/13/2020 (3834) Shower Enclosure Installer: Printed Date/Time: 12/13/2020 (8869) PAGE 1 Signed Report us Elizabeth Menjivar PA-C [facility] US ORDERABLES Final Resul t documented in this encounter Visit Diagnoses Not on filedocumented in this encounter Additional Health Concerns Infection Onset Date Last Indicated Resolved Time R/O COVID-04/16/2023 04/16/2023 04/16/2023 23:3 7 EDT COVID-04/16/2023 04/16/2023 05/06/2023 22:1 5 EDT documented as of this encounter Care Teams Loan Teller Relationship Specialty Start Date End Date Mary Montana MD [address] [place] [address] PCP - General 04/05/19 10/27/22 Livier Valdez, AG EQUIPMENT FIELD SERVICE TECHNICIAN [address] [place] [address] PCP - General Family Medicine - Primary Care 10/28/22 Mary Montana MD [address] [place] [address] 03/25/19 documented as of this encounter
--- OUTSIDE RECORDS SUMMARY | 2024-09-15 00:29 | XMS_ITS | Encounter Summary ---
Author Organization [facility] Address [address] [place] [address] Care Team Providers Care Keno Attendant Name Role Phone Mary Montana MD Unavailable Mary Montana MD Primary Care Provider [phone] Reason for Referral * Laboratory Services (Routine) - New Request Specialty Diagnoses / Procedures Referred By [facility] Referred To Contact Diagnoses resulting from assisted reproductive technology in first trimester Procedures QUANT BETA HCG, Suzan Kaur MD Phone: tel: fax: Referral ID Status Reason Start Date Expiration Date V isits Requested Visits Authorized [id number] New Request 10/01/2019 1 1 Reason for Visit * Reason Onset Date Comments Results 10/01/2019 Encounter Details Date Type Department Care Team (Late st Contact Info) Description 10/01/2019 Telephone [facility] Reproductive Medicine & Infertility Center - [facility] [address] [place], [place] [phone] Stephanie Quinones RN [address] [place] [address] Results Social History Tobacco Use Types Packs/Day [...] Telephone Encounter - Stephanie Quinones RN - 10/01/2019 0917 EST Telephoned patient to inform of positive hCG, indicative of early . Component Latest Ref Rng & Units 10/01/2019 BETA-HCG QUANT(WITH DILUT) - [facility] <5 mIU/mL 78 (H) Advised to repeat in 48 hours on 10/03. Order in place at [facility]. Advised that she continue daily progesterone injections through 9w6d of . Refill availableat [facility]. documented in this encounter Plan of Treatment Not on file documented as of this encounter Visit Diagnoses Diagnosis resulting from assisted reproductive technology in first trimester- Primary documented in this encounter Discontinued Medications Medication Sig Discontinue Reason Start Date End Da te acetaminophen-codeine (TYLENOL-CODEINE #3) 300-30 mg per tablet Take 1 Tab by mouth every 4 hours as needed for Pain. Daily Max: 6 Tabs 09/17/2019 10/01/2019 chorionic gonadotropin, human (PREGNYL) 10,000 unit injection Inject 1 mL into the skin when directed. 08/12/2019 10/01/2019 Follitropin Kervin (GONAL-F) 1,050 unit recon soln Inject 225 units into the skin daily. Decrease when directed. 08/12/2019 10/01/2019 leuprolide (LUPRON) 1 mg/0.2 mL kit Inject 10 units into the skin daily. Decrease as directed. 08/12/2019 10/01/2019 menotropins (MENOPUR) 75 unit solution for subcutaneous injection Injects 75 units into the skin daily. 08/12/2019 10/01/2019 norgestimate-ethinyl estradiol (ORTHO-CYCLEN, 28,) 0.25-35 mg-mcg per tablet Take 1 Tab by mouth daily. Take active tabs continuously. Discard inactive tabs. 07/21/2019 10/01/2019 documented as of this encounter Orders Lab Orders Without Results Count Last Ordered D ate First Ordered Date QUANT BETA HCG, 2 10/01/2019 documented in this encounter Care Teams Keno Attendant Relationship Specialty Start Date End Date Mary Montana MD [address] [place] [address] PCP - General 04/05/19 10/27/22 Mary Montana MD [address] [place] [address] 03/25/19 documented as of this encounter
--- OUTSIDE RECORDS SUMMARY | 2024-09-15 00:29 | XMS_ITS | Encounter Summary ---
Author Organization [facility] Address [address] [place] [address] Care Team Providers Care Supply Chain Specialist Name Role Phone Mary Montana MD Unavailable Mary Montana MD Primary Care Provider [phone] Reason for Visit * Reason Onset Date Comments Coordination Of Care 09/15/2019 Encounter Details Date Type Department Care Team (Late st Contact Info) Description 09/15/2019 Telephone [facility] Reproductive Medicine & Infertility Center - [facility] [address] [place], [place] [phone] Fany Walters RN Coordination Of Care Social History Tobacco [...] encounter Miscellaneous Notes * Telephone Encounter - Fany Walters RN - 09/15/2019 0357 EST After the patient's lab work and US results have been discussed by the IVF team, she has been deemed ready to be scheduled for her oocyte retrieval. Call to pt to review oocyte retrieval timing and instructions. Pt to administer final dose of stim yesterday 09/14/19. Pt to administer final dose of lupron this morning . Give hCG injection at 2130 on tonight 09/15/19. Oocyte retrieval scheduled at 0830 on 09/17/19. Arrive to the TRAVEL PT desk lieutenant no later than 0745 (45 minutes before procedure). Partner should remain abstinent from ejaculation starting today (48 hours prior to the time of collection on the morning of the scheduled procedure). Advised pt to be NPO (nothing to eat or drink) after midnight the night before procedure, tomorrow 09/16 . No use of perfumes, colognes, or scented soaps by patient or partner, as scents can be toxic to oocytes and embryos. We will provide a script for pain medication, to be filled by partner during procedure. Nurse will administer first IM progesterone injection at the time of retrieval. Must have a ride home. Will not be discharged without a ride home. Pt verbalized understanding of plan. Procedural/Anesthesia scheduling for oocyte retrieval: 1. [id number] was called and the patient was put on the anesthesia task calendar, and anesthesia department was notified of coverage status: global or insurance. 2. The charge anesthesiologist, Nick Thurston. and Tino Clayton were emailed notified of this scheduled procedure. 3. Procedure was scheduled in [place] with anesthesia resource requested, and appears on [facility] snapboard. documented in this encounter Plan of Treatment Not on file documented as of this encounter Visit Diagnoses Not on filedocumented in this encounter Care Teams Supply Chain Specialist Relationship Specialty Start Date End Date Mary Montana MD [address] [place] [phone] PCP - General 04/05/19 10/27/22 Mary Montana MD [address] [place] [phone] 03/25/19 documented as of this encounter
--- OUTSIDE RECORDS SUMMARY | 2024-09-15 00:29 | XMS_ITS | Encounter Summary ---
Author Organization [facility] Address [address] [place] [address] Care Team Providers Care Furniture Fabricator Name Role Phone Mary Montana MD Unavailable Mary Montana MD Primary Care Provider [phone] Reason for Visit * Reason Onset Date Comments Coordination Of Care 09/16/2019 Encounter Details Date Type Department Care Team (Late st Contact Info) Description 09/16/2019 Telephone [facility] Reproductive Medicine & Infertility Center - [facility] [address] [place], [place] [phone] Fany Walters RN Coordination Of Care Social [...] Telephone Encounter - Fany Walters RN - 09/16/2019 1331 EST PC from [facility] to report that she has decided to stay in a hotel tonight in preparation for winterweather tomorrow morning on the day of her egg retrieval. Given that she will be only a few minutes from hospital, she inquired if her partner could collect a fresh sperm sample from the hotel and hand deliver on the morning of retrieval . Discussed with andrology lab and this is agreeable. Advised to obtain sterile specimen cup, avoid any use of saliva or lubricant, and to keep close to body temperature and deliver to the office within one hour of collection. She verbalized understanding and agreement. documented in this encounter Plan of Treatment Not on file documented as of this encounter Visit Diagnoses Not on filedocumented in this encounter Care Teams Furniture Fabricator Relationship Specialty Start Date End Date Mary Montana MD [address] [place] [address] PCP - General 04/05/19 10/27/22 Mary Montana MD [address] [place] [phone] 03/25/19 documented as of this encounter
--- OUTSIDE RECORDS SUMMARY | 2024-09-15 00:29 | XMS_ITS | Encounter Summary ---
Author Organization [facility] Address [address] [place] [address] Care Team Providers Care Traffic Sergeant Name Role Phone Mary Montana MD Unavailable Mary Montana MD Primary Care Provider Encounter Details Date Type Department Care Team ([facility] st Contact Info) Description 09/08/2019 Documentation Visit [facility] Reproductive Medicine & Infertility Center - [facility] [address] [place], [place] [phone] Leanna Dickinson MD [address] [place] [phone] Social History Tobacco Use Types Packs/Day Years [...] documented in this encounter Progress Notes * Leanna Dickinson MD - 09/08/2019 0804 EST Late entry for 09/07/2019 IVF cycle #1, E2 OM4 See USE flowsheet Plan d/w Dr. Vincent Dickinson MD Reproductive Endocrinology and Infertility Fellow documented in this encounter Plan of Treatment Not on file documented as of this encounter Visit Diagnoses Not on filedocumented in this encounter Care Teams Traffic Sergeant Relationship Specialty Start Date End Date Mary Montana MD [address] [place] [address] PCP - General 04/05/19 10/27/22 Mary Montana MD [address] [place] [address] 03/25/19 documented as of this encounter
--- OUTSIDE RECORDS SUMMARY | 2024-09-15 00:29 | XMS_ITS | Encounter Summary ---
Author Organization [facility] Address [address] [place] [address] Care Team Providers Care National Sales Representative Name Role Phone Mary Montana MD Unavailable Mary Montana MD Primary Care Provider [phone] Reason for Visit * Reason Onset Date Comments Results 09/19/2019 Encounter Details Date Type Department Care Team ([facility] st Contact Info) Description 09/19/2019 Telephone [facility] Reproductive Medicine & Infertility Center - [facility] [address] [place] [address] Leanna Dickinson MD [address] [place] [phone] Results Social History Tobacco Use Types Packs/Day [...] encounter Miscellaneous Notes * Telephone Encounter - Leanna Dickinson MD - 09/19/2019 0931 EST LATE ENTRY TC 09/18/2019 TC to [facility] with fert results as below: Day 0: Total # of eggs: 19 > IVF Day 1: 11 x 2PN 2 x vac. 2PN 2 x 3PN 2 x NH 1 x Abnormal egg 1 x NF Discussed next steps would be to check progression Friday morning to determine day 3 vs. Day 5 transfer. Discussed criteria for each. Jonathon states she is supposed to be working out of town Friday and I requested she wait until we call her (hopefully around 8:30AM) prior to traveling as day 3 embryo transfer may be recommended and she would need to come in. Leanna Dickinson MD Reproductive Endocrinology and Infertility Fellow documented in this encounter Plan of Treatment Not on file documented as of this encounter Visit Diagnoses Not on filedocumented in this encounter Care Teams National Sales Representative Relationship Specialty Start Date End Date Mary Montana MD [address] [place] [phone] PCP - General 04/05/19 10/27/22 Mayr Montana MD [address] [place] [phone] 03/25/19 documented as of this encounter
--- OUTSIDE RECORDS SUMMARY | 2024-09-15 00:29 | XMS_ITS | Encounter Summary ---
Author Organization [facility] Address [address] [place] [address] Care Team Providers Care Feed Handler Name Role Phone Mary Montana MD Unavailable Mary Montana MD Primary Care Provider [phone] Encounter Details Date Type Department Care Team (Late st Contact Info) Description 09/17/2019 Orders Only [facility] Reproductive Medicine & Infertility Center - [facility] [address] [place], [place] [id number] [place] [id number] [address] Social History Tobacco Use Types Packs/Day Years [...] Refills Last Filled Start Date End Date acetaminophen-code ine (TYLENOL-CODEINE #3) 300-30 mg per tablet Take 1 Tab by mouth every 4 hours as needed for Pain. Daily Max: 6 Tabs 10 Tab 09/17/2019 10/01/2019 documented in this encounter Plan of Treatment Not on file documented as of this encounter Visit Diagnoses Not on filedocumented in this encounter Care Teams Feed Handler Relationship Specialty Start Date End Date Mary Montana MD [address] [place] [address] PCP - General 04/05/19 10/27/22 Mary Montana MD [address] [place] [phone] 03/25/19 documented as of this encounter
--- OUTSIDE RECORDS SUMMARY | 2024-09-15 00:29 | XMS_ITS | Encounter Summary ---
Author Organization [facility] Address [address] [place] [address] Care Team Providers Care Arts Administrator Or Manager Name Role Phone Mary Montana MD Unavailable Mary Montana MD Primary Care Provider [phone] Reason for Visit * Reason Onset Date Comments Results 09/14/2019 Encounter Details Date Type Department Care Team (Late st Contact Info) Description 09/14/2019 Telephone [facility] Reproductive Medicine & Infertility Center - [facility] [address] [place], [place] [id number] Sy Walters RN Results Social History Tobacco Use [...] encounter Miscellaneous Notes * Addendum Note - Sy Walters RN - 09/14/2019 1447 ESTAddended by: SY WALTERS on: 09/14/2019 14:47 Modules accepted: Orders * Telephone Encounter - Sy Walters RN - 09/14/2019 1436 EST Telephoned patient to review results of labs and continued medication plan. Component Latest Ref Rng & Units 09/14/2019 Estradiol See Note pg/mL 3,324 Progesterone See Table ng/mL 0.8 Advised patient to increase GN to 75/0 . Next step is E2 tomorrow, trigger tomrrow for ER on 09/17 ( will call tomorrow with further instructions once this has been scheduled. Discussed with Dr Dickinson . Stat E2 order faxed to [facility] for same-day result. Patient confirmed understanding of plan. documented in this encounter Plan of Treatment Not on file documented as of this encounter Results * ESTRADIOL, ADULTS (10/03/2019 12:24 EST) [facility] Estradiol 1,692 See Note pg/mL 10/03/2019 13:22 EST [facility] Comment: NOTE: FEMALE REFERENCE RANGES: MENSTRUATING ? By cycle day relative to LH peak Follicular ?(-12 to -4 days) ??20-144 pg/mL Midcycle ?(-3 to +2 days) ?? 64-357 pg/mL Luteal ?(+4 t0 +12 days) ??56-214 pg/mL POSTMENOPAUSAL ?<33 pg/mL *Cross reactivity with Fulvestrant could lead to a falsely elevated estradiol result in patients treated with this drug. Blood VENOUS BLOOD / Unknown Venipuncture / Unknown 10/03/2019 12:24 EST 10/03/2019 12:27 EST us Suzan Kaur MD CHEMISTRY & BLOOD GAS ORD ERABLES Final Result [facility] [address] [place] [address] documented in this encounter Visit Diagnoses Diagnosis Encounter for assisted reproductive fertility cycle- Primary Encounter for assisted reproductive fertility procedure cycle documented in this encounter Care Teams Arts Administrator Or Manager Relationship Specialty Start Date End Date Mary Montana MD [address] [place] [phone] PCP - General 04/05/19 10/27/22 Mary Montana MD [address] [place] [phone] 03/25/19 documented as of this encounter
--- OUTSIDE RECORDS SUMMARY | 2024-09-15 00:29 | XMS_ITS | Encounter Summary ---
Author Organization [facility] Address [address] [place] [address] Care Team Providers Care Carton Waxing Machine Operator Name Role Phone Mary Montana MD Unavailable Mary Montana MD Primary Care Provider [phone] Reason for Referral * Laboratory Services (Routine) - New Request Specialty Diagnoses / Procedures Referred By [facility] Referred To Contact Diagnoses Encounter for test, result unknown Procedures QUANT BETA HCG, Gary Lion MD Phone: tel: fax: Referral ID Status Reason Start Date Expiration Date V isits Requested Visits Authorized [id number] New Request 09/22/2019 1 1 Encounter Details Date Type Department Care Team (Late st Contact Info) Description 09/22/2019 Orders Only [facility] Reproductive Medicine & Infertility Center - [facility] [address] [place] [address] Stephanie Quinones, TANIA [address] [place] [address] Encounter for test, result unknown (Primary Dx) Social History Tobacco Use Types [...] as of this encounter Results * (ABNORMAL) QUANT BETA HCG, (10/03/2019 12:24 EST) Beta HCG Quant, 155(H) <5 mIU/ml 10/03/2019 13:09 EST [facility] Comment: NOTE: : Negative: Less than 5mIU/mL Indeterminant: Between 5 and 25 mIU/mL, recommend repeat testing in 48 hours Positive: Greater than 25 mIU/mL The results of this assay can be falsely lowered due to the consumption of Biotin. Blood VENOUS BLOOD / Unknown Venipuncture / Unknown 10/03/2019 12:24 EST 10/03/2019 12:27 EST us Gary Lion MD CHEMISTRY & BLOOD GAS ORDERA BLES Final Result [facility] [address] [place] [address] documented in this encounter Visit Diagnoses Diagnosis Encounter for test, result unknown- Primary documented in this encounter Care Teams Carton Waxing Machine Operator Relationship Specialty Start Date End Date Mary Montana MD [address] [place] [address] PCP - General 04/05/19 10/27/22 Mary Montana MD [address] [place] [address] 03/25/19 documented as of this encounter
--- OUTSIDE RECORDS SUMMARY | 2024-09-15 00:29 | XMS_ITS | Encounter Summary ---
Author Organization [facility] Address [address] [place] [address] Care Team Providers Care Meat Grading Machine Operator Name Role Phone Mary Montana MD Unavailable Mary Montana MD Primary Care Provider [phone] Reason for Referral * BILINGUAL BRANCH MANAGER (Routine) - Specialty Report Received Specialty Diagnoses / Procedures Referred By [facility] t Referred To Contact Diagnoses In vitro fertilization Procedures US A CLASS LINEMAN EXAM (JULIAN ONLY) Suzan Kaur MD Phone: tel: fax: Referral ID Status Reason Start Date Expiration Date V isits Requested Visits Authorized [id number] Specialty Report Received 09/10/2019 1 1 Reason for Visit * Reason Onset Date Comments Coordination Of Care 09/10/2019 Encounter Details Date Type Department Care Team (Late st Contact Info) Description 09/10/2019 Telephone [facility] Reproductive Medicine & Infertility Center - [facility] [address] [place] [address] Fany Walters RN Coordination Of Care Social [...] Telephone Encounter - Fany Walters RN - 09/10/2019 1337 EST Telephoned patient to review results of labs and continued medication plan. Component Latest Ref Rng & Units 09/10/2019 Estradiol See Note pg/mL 1,549 Progesterone See Table ng/mL 0.4 Advised patient to continue GN 1/0 and lupron. Next step is USE tomorrow 09/11/19 @ 0900. Discussed with Dr Dickinson . Patient verbalized understanding of plan. documented in this encounter Plan of Treatment Not on file documented as of this encounter Results * US A CLASS LINEMAN EXAM (JULIAN ONLY) (09/11/2019 9:29 EST) Anatomical Region Laterality Modality Ultrasound 09/11/2019 9:20 EST Narrative 09/11/2019 9:43 EST Indication Ovulation induction Uterus ======= Uterus: ?Appears normal Uterus position: ?? Retroverted Uterine malformations: None Myometrium: ?Appears normal Endometrium: ?? Trilaminar endometrium Endometrial thickness, total ?? 8.5 mm Right Ovary Rt ovary: ??Visualized, normal appearance Outline: ?? Smooth Rt ovary morphology: ?? Normal Rt ovarian follicle(s): ?Follicles identified Findings: ??Maturing follicle D1 15.7 mm D2 15.1 mm D3 13.8 mm Mean ?? 14.9 mm Vol ?1.713 cm cubed Findings: ??Maturing follicle D1 11.8 mm D2 10.6 mm D3 11.6 mm Mean ?? 11.3 mm Vol ?0.760 cm cubed Findings: ??Maturing follicle D1 7.3 mm D2 8.8 mm D3 11.7 mm Mean ?? 9.3 mm Vol ?0.394 cm cubed Left Ovary Lt ovary: ??Visualized, normal appearance Outline: ?? Smooth Lt ovary morphology: ?? normal Lt ovarian follicle(s): ?Follicles identified Findings: ??Maturing follicle D1 14.6 mm D2 17.7 mm D3 8.6 mm Mean ?? 13.6 mm Vol ?1.164 cm cubed Findings: ??Maturing follicle D1 10.0 mm D2 11.6 mm D3 13.2 mm Mean ?? 11.6 mm Vol ?0.802 cm cubed Findings: ??Maturing follicle D1 13.5 mm D2 8.0 mm D3 10.8 mm Mean ?? 10.8 mm Vol ?0.611 cm cubed Cul [place] Sac Appears normal. Free fluid visualized (trace). Impression USF (Follicular) - 55462 Trilaminar the endometrium Follicular pool as above. Follow-up Per ART Team. Comment ========= results discussed with patient. DATE OF SERVICE: 09/11/2019 Procedure Note Tamra Alcala MD - 09/11/2019 Indication Ovulation induction Uterus ======= Uterus: Appears normal Uterus position: Retroverted Uterine malformations: None Myometrium: Appears normal Endometrium: Trilaminar endometrium Endometrial thickness, total 8.5 mm Right Ovary Rt ovary: Visualized, normal appearance Outline: Smooth Rt ovary morphology: Normal Rt ovarian follicle(s): Follicles identified Findings: Maturing follicle D1 15.7 mm D2 15.1 mm D3 13.8 mm Mean 14.9 mm Vol 1.713 cm cubed Findings: Maturing follicle D1 11.8 mm D2 10.6 mm D3 11.6 mm Mean 11.3 mm Vol 0.760 cm cubed Findings: Maturing follicle D1 7.3 mm D2 8.8 mm D3 11.7 mm Mean 9.3 mm Vol 0.394 cm cubed Left Ovary Lt ovary: Visualized, normal appearance Outline: Smooth Lt ovary morphology: normal Lt ovarian follicle(s): Follicles identified Findings: Maturing follicle D1 14.6 mm D2 17.7 mm D3 8.6 mm Mean 13.6 mm Vol 1.164 cm cubed Findings: Maturing follicle D1 10.0 mm D2 11.6 mm D3 13.2 mm Mean 11.6 mm Vol 0.802 cm cubed Findings: Maturing follicle D1 13.5 mm D2 8.0 mm D3 10.8 mm Mean 10.8 mm Vol 0.611 cm cubed [place] Sac Appears normal. Free fluid visualized (trace). Impression USF (Follicular) - 25266 Trilaminar the endometrium Follicular pool as above. Follow-up Per ART Team. Comment ========= results discussed with patient. DATE OF SERVICE: 09/11/2019 Suzan Kaur MD [facility] OB ORDERABLES Gissell l Result documented in this encounter Visit Diagnoses Diagnosis In vitro fertilization- Primary Encounter for assisted reproductive fertility procedure cycle In vitro fertilization Encounter for assisted reproductive fertility procedure cycle Encounter for assisted reproductive fertility cycle Encounter for assisted reproductive fertility procedure cycle documented in this encounter Care Teams Meat Grading Machine Operator Relationship Specialty Start Date End Date Mary Montana MD [address] [place] [address] PCP - General 04/05/19 10/27/22 Mary Montana MD [address] [place] [address] 03/25/19 documented as of this encounter
--- OUTSIDE RECORDS SUMMARY | 2024-09-15 00:29 | XMS_ITS | Encounter Summary ---
Author Organization [facility] Address [address] [place] [address] Care Team Providers Care Bridal Service Sales And Management Name Role Phone Mary Montana MD Unavailable Mary Montana MD Primary Care Provider [phone] Reason for Referral * ECHOCARDIOGRAPH TECH (Routine) - Specialty Report Received Specialty Diagnoses / Procedures Referred By [facility] access hospital Referred To Contact Diagnoses resulting from assisted reproductive technology in first trimester Procedures OB FIRST TRIMESTER (LESS THAN 14 WEEKS) TRANSVAGINAL Gary Lion MD Phone: tel: fax: Referral ID Status Reason Start Date Expiration Date V isits Requested Visits Authorized [id number] Specialty Report Received 10/05/2019 1 1 Reason for Visit * Reason Onset Date Comments Pharmacy 10/05/2019 Results 10/05/2019 Encounter Details Date Type Department Care Team (Late st Contact Info) Description 10/05/2019 Telephone [facility] Reproductive Medicine & Infertility Center - [facility] [address] [place] [address] [place] [address] [facility] [address] [place] [phone] Pharmacy; Results Social History Tobacco Use Types Packs/Day [...] Telephone Encounter - Stephanie Quinones RN - 10/05/2019 1129 EST Call to [facility] with hCG results from today. Appropriate rise x3. Advised pt to continue daily progesterone injections. She has ordered a refill from [facility]. Scheduled US 10/17 at 0840. Component Latest Ref Rng & Units 10/01/2019 10/03/2019 10/05/2019 BETA-HCG QUANT(WITH DILUT) - [facility] <5 mIU/mL 78 (H) 262 (H) Quant Beta HCG, Preg <5 mIU/ml 155 (H) * Telephone Encounter - Yuni Moreau - 10/05/2019 1059 EST Reason for call as described by patient Patient is calling for a refill and to get the results fromher recent testing. Says she has left a voicemail on nursing line already. Medication(s) Requested: Progesterone Is patient out of medication? Yes - states she only has enough for domenic Moreau 10/05/2019 10:59 documented in this encounter Plan of Treatment [...] free fluid: ??mild Impression OB Transvaginal - 60376 1. Normal appearing anteverted uterus with viable [...] / ET 6 w + 3 d LRAISA by IVF / ET: 06/09/2020 Ultrasound examination [...] free fluid: mild Impression OB Transvaginal - 68648 1. Normal appearing anteverted uterus with viable trevino intra- uterinepregnancy. 2. Small subchorionic hematoma 3. Bilateral ovaries with resolving CLs consistent with recent IVFstimulation 4. Mild amount of free fluid in the posterior cul-de-sac. Follow-up See note in Epic. Repeat US in two weeks. Comment ========= O09.81 supervision of resulting from assisted reproductivetechnology. DATE OF SERVICE: 10/18/2019 us Gary Lion MD G OB ORDERABLES Final R esult documented in this encounter Visit Diagnoses Diagnosis resulting from assisted reproductive technology in first trimester- Primary resulting from assisted reproductive technology in first trimester documented in this encounter Care Teams Bridal Service Sales And Management Relationship Specialty Start Date End Date Mary Montana MD [address] [place] [phone] PCP - General 04/05/19 10/27/22 Mary Montana MD [address] [place] [phone] 03/25/19 documented as of this encounter
--- OUTSIDE RECORDS SUMMARY | 2024-09-15 00:29 | XMS_ITS | Encounter Summary ---
Author Organization [facility] Address [address] [place] [address] Care Team Providers Care Desk Pen Set Assembler Name Role Phone Mary Montana MD Unavailable Mary Montana MD Primary Care Provider [phone] Reason for Visit * Reason Onset Date Comments Results 09/09/2019 Encounter Details Date Type Department Care Team (Late st Contact Info) Description 09/09/2019 Telephone [facility] Reproductive Medicine & Infertility Center - [facility] [address] [place], [place] [phone] Fany Walters RN Results Social History Tobacco [...] Miscellaneous Notes * Telephone Encounter - Fany Walters, TANIA - 09/09/2019 1511 EST Telephoned patient to review results of labs and continued medication plan. Component Latest Ref Rng & Units 09/09/2019 Estradiol See Note pg/mL 1,158 Progesterone See Table ng/mL 0.4 Advised patient to decrease GN to 75/0 tonight. Next step is E2 tomorrow 09/10/19. Stat order faxed to [facility] and patient verbalized understanding to arrive at the lab when it opens at 7 am in order to obtain same day result. Discussed with Dr Kaur Pt verbalized understanding of plan. documented in this encounter Plan of Treatment Not on file documented as of this encounter Results * PROGESTERONE (09/12/2019 12:43 EST) Progesterone 1.4 See Table ng/mL 09/12/2019 13:58 EST [facility] Comment: Female Reference Ranges: PHYSIOLOGICAL [...] VENOUS BLOOD / Unknown Venipuncture / Unknown 09/12/2019 12:43 EST 09/12/2019 12:46 EST us Suzan Kaur MD CHEMISTRY & BLOOD GAS ORD ERABLES Final Result Performing Organization Address [facility] Co de Phone Number [facility] [address] [place] [address] * ESTRADIOL, ADULTS (09/12/2019 12:43 EST) Estradiol 3,563 See Note pg/mL 09/12/2019 14:09 EST [facility] Comment: NOTE: FEMALE REFERENCE RANGES: [...] VENOUS BLOOD / Unknown Venipuncture / Unknown 09/12/2019 12:43 EST 09/12/2019 12:46 EST us Suzan Kaur MD CHEMISTRY & BLOOD GAS ORD ERABLES Final Result Performing Organization Address [facility] Co de Phone Number [facility] [address] [place] [address] documented in this encounter Visit Diagnoses Diagnosis Encounter for assisted reproductive fertility cycle- Primary Encounter for assisted reproductive fertility procedure cycle documented in this encounter Care Teams Desk Pen Set Assembler Relationship Specialty Start Date End Date Mary Montana MD [address] [place] [address] PCP - General 04/05/19 10/27/22 Mary Montana MD [address] [place] [address] 03/25/19 documented as of this encounter
--- OUTSIDE RECORDS SUMMARY | 2024-09-15 00:29 | XMS_ITS | Encounter Summary ---
Author Organization [facility] Address [address] [place] [address] Care Team Providers Care Tube Worker Name Role Phone Mary Montana MD Unavailable Mary Montana MD Primary Care Provider Reason for Referral * IN FLIGHT REFUELING CRAFTSMAN (Routine) - Specialty Report Received Specialty Diagnoses / Procedures [facility]erred To Contact Diagnoses In vitro fertilization Procedures US CALIBRATION SPECIALIST EXAM (JULIAN ONLY) Suzan Kaur MD Phone: tel: fax: Referral ID Status Reason Start Date Expiration Date V isits Requested Visits Authorized [id number] Specialty Report Received 09/07/2019 1 1 Reason for Visit * IN FLIGHT REFUELING CRAFTSMAN (Routine) - Specialty Report Received Specialty Diagnoses / Procedures [facility] Referred To Contact Diagnoses In vitro fertilization Procedures US CALIBRATION SPECIALIST EXAM (JULIAN ONLY) Suzan Kaur MD Phone: tel: fax: Referral ID Status Reason Start Date Expiration Date V isits Requested Visits Authorized [id number] Specialty Report Received 09/07/2019 1 1 Encounter Details Date Type Department Care Team (Latest Contact Info) Description 09/09/2019 8:40 EST - 09/10/2019 23:59 EST Hospital Encounter [facility] - [address] [address] In vitro fertilization Discharge Disposition: Home or Self Care Social [...] this encounter Medications at Time of Discharge chorionic gonadotropin, human (PREGNYL) 10,000 unit injection Inject 1 mL into the skin when directed. 1 Each 08/12/2019 0 Follitropin Kervin (GONAL-F) 1,050 unit recon soln Inject 225 units into the skin daily. Decrease when directed. 3 Each 08/12/2019 0 leuprolide (LUPRON) 1 mg/0.2 mL kit Inject 10 units into the skin daily. Decrease as directed. 2 Each 08/12/2019 0 menotropins (MENOPUR) 75 unit solution for subcutaneous injection Injects 75 units into the skin daily. 15 Vial 08/12/2019 0 multivit-minerals/ folic acid (ADULT MULTIVITAMIN GUMMIES ORAL) Take by mouth. 02 0 norgestimate-ethin yl estradiol (ORTHO-CYCLEN, 28,) 0.25-35 mg-mcg per tablet Take 1 Tab by mouth daily. Take active tabs continuously. Discard inactive tabs. 56 Tab 07/21/2019 0 progesterone in oil 50 mg/mL injection Inject 1 mL into the muscle daily. 2 Vial 3 08/12/2019 0 documented as of this encounter Discharge Disposition Disposition Code Departure Means Destination Home or Self Care documented in this encounter Plan of Treatment Not on file documented as of this encounter Procedures Procedure Name Priority Date/Time Associated Diagnosis Comments US CALIBRATION SPECIALIST EXAM (JULIAN ONLY) Routine 09/09/2019 9:16 EST In vitro fertilization documented in this encounter Results * US CALIBRATION SPECIALIST EXAM (JULIAN ONLY) (09/09/2019 9:16 EST) Anatomical Region Laterality Modality Ultrasound 09/09/2019 9:11 EST Narrative 09/09/2019 10:13 EST Indication Fresh IVF for tubal factor, Lupron 10:5 cycle, standard IVF, OM #6, GN 2/1. Uterus ======= Uterus: ?Visualized Uterus position: ?? Retroverted Endometrium: ?? Trilaminar endometrium Endometrial thickness, total ?? 7.6 mm Right Ovary Rt ovary: ??Visualized, normal appearance Rt ovarian follicle(s): ?Follicles identified D1 18.8 mm D2 13.1 mm D3 12.2 mm Mean ?? 14.7 mm Vol ?1.569 cm cubed D1 9.9 mm D2 9.3 mm D3 7.7 mm Mean ?? 8.9 mm Vol ?0.366 cm cubed Rt ovary other findings: ?? 9 < 10 mm Left Ovary Lt ovary: ??Visualized, normal appearance Lt ovarian follicle(s): ?Follicles identified D1 10.5 mm D2 13.1 mm D3 11.0 mm Mean ?? 11.6 mm Vol ?0.798 cm cubed Lt ovary other findings: ?? 13 < 10 mm Cul de Sac Appears normal. No free fluid visualized. Impression USE (IVF Follicular) - [id number] Retroverted uterus with trilaminar endometrium. Bilateral ovaries with early follicular development as measured. Follow-up E2/P4 and plan per ART team. Comment ========= Z31.83 encounter for assisted reproductive fertility procedure cycle. DATE OF SERVICE: 09/09/2019 Procedure Note Gary Lion MD - 09/09/2019 Indication Fresh IVF for tubal factor, Lupron 10:5 cycle, standard IVF, OM #6, GN2/1. Uterus ======= Uterus: Visualized Uterus position: Retroverted Endometrium: Trilaminar endometrium Endometrial thickness, total 7.6 mm Right Ovary Rt ovary: Visualized, normal appearance Rt ovarian follicle(s): Follicles identified D1 18.8 mm D2 13.1 mm D3 12.2 mm Mean 14.7 mm Vol 1.569 cm cubed D1 9.9 mm D2 9.3 mm D3 7.7 mm Mean 8.9 mm Vol 0.366 cm cubed Rt ovary other findings: 9 < 10 mm Left Ovary Lt ovary: Visualized, normal appearance Lt ovarian follicle(s): Follicles identified D1 10.5 mm D2 13.1 mm D3 11.0 mm Mean 11.6 mm Vol 0.798 cm cubed Lt ovary other findings: 13 < 10 mm [place] Sac Appears normal. No free fluid visualized. Impression USE (IVF Follicular) - [id number] Retroverted uterus with trilaminar endometrium. Bilateral ovaries with early follicular development as measured. Follow-up E2/P4 and plan per ART team. Comment ========= Z31.83 encounter for assisted reproductive fertility procedure cycle. DATE OF SERVICE: 09/09/2019 Suzan Kaur MD [facility] US OB ORDERABLES Gissell l Result documented in this encounter Visit Diagnoses Diagnosis In vitro fertilization Encounter for assisted reproductive fertility procedure cycle documented in this encounter Care Teams Tube Worker Relationship Specialty Start Date End Date Mary Montana MD [address] [place] [address] PCP - General 04/05/19 10/27/22 Mary Montana MD [address] [place] [address] 03/25/19 documented as of this encounter
--- OUTSIDE RECORDS SUMMARY | 2024-09-15 00:29 | XMS_ITS | Encounter Summary ---
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 Following your egg retrieval, you may experience some pelvic area tenderness and feel tired or sleepy from the medications you have received during the procedure. You may also have some light vaginalspotting. This bleeding should be scant and may be red to brown in color. If you need pain medication, you may use the narcotic medication prescribed by your physician and/or Tylenol. Do not use ibuprofen or naproxen. The medications used during your retrieval may not be eliminated by your body for up to 24 hours. During this period we ask that you do not: 1. Drive a car or operate machinery or power tools. 2. Drink any alcoholic beverages. 3. Make any important decisions. You may eat whatever you like after the retrieval, as long as you are not nauseated. If you experience nausea, stick to clear liquids and crackers until the nausea subsides. Do not put anything in your vagina, including tampons. You should abstain from intercourse until two weeks after your embryo transfer. Start progesterone in oil IM injections once daily starting the day after your retrieval. You may give this injection any time that is convenient for you. Whichever time you choose, injections shouldbe given at a consistent time each day. Please contact the nurses at [phone] M-F 8am-430pm if you notice any of the following: ??? Fever greater than 100.4 F that lasts for more than two hours ??? Excessive vaginal bleeding ??? Unusual and increasing pelvic area discomfort ??? Difficulty with urination or change in bowel activity ??? Nausea, vomiting or diarrhea ??? Sharp or shooting pains ??? Pain or burning during urination ??? Abdominal swelling ??? Unusual back pain ??? Weight gain of more than 5 pounds in 72 hours For issues or concerns after office hours M-F or over the weekend please call [phone]. Ask forthe JULIAN doctor stallion manager to return your call. documented in this encounter Medications at Time of Discharge acetaminophen-code ine (TYLENOL-CODEINE #3) 300-30 mg per tablet Take 1 Tab by mouth every 4 hours as needed for Pain. Daily Max: 6 Tabs 10 Tab 09/17/2019 0 chorionic gonadotropin, human (PREGNYL) 10,000 unit injection [...] or Self Care documented in this encounter Progress Notes * Stephanie Quinones RN - 09/17/2019 1015 EST Patient with VSS. Tolerating po. Pain well managed. OOB to void. PIV d/c'd, catheter intact, pressure dressing applied. Discharged home in stable condition with partner, Eleuterio. documented in this encounter H&P Notes * Jose David Pearson MD - 09/17/2019 0811 EST The preoperative history and physical which was performed within 30 days of this procedure has been reviewed and the clinically appropriate elements of the physical examination have been repeated. There are no changes to the documented history and physical or if so such changes are documented below Jose David Pearson MD 09/17/2019 8:11 Cosigned by Suzan Kaur MD at 09/17/2019 9:24 EST documented in this encounter Procedure Notes * Jose David Pearson MD - 09/17/2019 0916 ESTProcedure(s): FOLLICLE PUNCTURE, RETRIEVAL OF OOCYTE Pre-Procedure Diagnose(s): Tubal infertility in female Post-Procedure Diagnose(s): Tubal infertility in female IVF OOCYTE RETRIEVAL Preop Dx: Infertility and S/P controlled ovarian hyperstimulation for IVF Postop Dx: Infertility and S/P controlled ovarian hyperstimulation for IVF Procedure: US guided Oocyte retrieval with Single Lumen catheter Anesthesia: General Attending: Dr. Kaur Assist: Dr. Pearson (Fellow) Findings: Bilateral folliculogenesis consistent with controlled ovarian hyperstimulation Oocytes retrieved: 19 Endometrium: trilaminar, measures 8.3mm Free Fluid: trace Ultrasound Visualization Transvaginal: good EBL: < 50 cc UOP: Patient voided prior to the start of the procedure Condition: stable Dispo: IVF Recovery Room Complications: None Dr. Kaur (JULIAN Attending) was present for and participated in this entire case. Jose David Pearson MD, PGY5 Fellow Reproductive Endocrinology & Infertility [facility] 09/17/2019 / 9:17 Cosigned by Suzan Kaur MD at 09/17/2019 9:29 EST Associated attestation - Suzan Kaur MD - 09/17/2019 0929 EST Attestation statement: I was present during the entire procedure during the patient's clinic visit.I agree with the findings and plan of care documented in the above note. Suzan Kaur MD Reproductive Endocrinology and Infertility documented in this encounter Miscellaneous Notes * Addendum Note - Nanda Holley - 09/18/2019 2359 ESTEmendyer addended by: Nanda Holley on: 09/21/2019 14:03 Actions taken: Flowsheet accepted * Addendum Note - Stephanie Quinones RN - 09/18/2019 4599 Shahnaz addended by: Stephanie Quinones RN on: 11/16/2019 13:02 Actions taken: Charge Capture section accepted documented in this encounter Plan of Treatment Not on file documented as of this encounter Visit Diagnoses Diagnosis Tubal infertility in female- Primary Female infertility of tubal origin documented in this encounter Administered Medications Inactive Administered Medications - up to 3 most recent administrations Medication Order MAR Action Action Date Dose Rate Site acetaminophen (TYLENOL) tablet 650 mg 650 mg, oral, EVERY 4 HOURS PRN, Starting on Fri09/17/19 at 1016, Until 09/19/19 at 0204, Pain, Routine Given 09/17/2019 9:33 EST 650 mg Given 09/17/2019 9:28 EST 650 mg ceFAZolin (ANCEF) 2,000 mg in sodium chloride 0.9% 50 mL IVPB 2,000 mg, intravenous, Administer over 30 Minutes, NOW X1, 1 dose, On Fri09/17/19 at 0800, Routine Given 09/17/2019 8:30 EST 2,000 mg lactated ringers (LR) infusion at 25 mL/hr, intravenous, CONTINUOUS, Starting on Fri09/17/19 at 0945, Until 09/19/19 at 0204, Routine, Preprocedure New Bag 09/17/2019 8:30 EST 25 mL/hr progesterone in oil injection 100 mg 100 mg, intramuscular, DAILY, First dose on Fri09/17/19 at 0900, Until Discontinued, Routine Given 09/17/2019 9:35 EST 100 mg documented in this encounter Orders Medications Ordered That Irving ht Not Have Been Administered Count Last Ordered Date First Ordered Date fentaNYL citrate (PF) injection 25-50 mcg 1 09/17/2019 documented in this encounter Care Teams Aligning Checker Relationship Specialty Start Date End Date Mary Montana MD [address] [place] [address] PCP - General 04/05/19 10/27/22 Mary Montana MD [address] [place] [phone] 03/25/19 documented as of this encounter
--- OUTSIDE RECORDS SUMMARY | 2024-09-15 00:29 | XMS_ITS | Encounter Summary ---
Author Organization [facility] Address [address] [place] [address] Care Team Providers Care Account Classification Clerk Name Role Phone Mary Montana MD Unavailable Mary Montana MD Primary Care Provider [phone] Encounter Details Date Type Department Care Team (Late st Contact Info) Description 09/17/2019 8:28 EST Anesthesia Event [facility] - [address] [phone] Nisreen Younger MD [address] [place] [address], [facility] [address] [place] [address] Anesthesia Record Procedure Summary Procedure Name Responsible Anesthesiologist Anesthesia Start Time Anesthesia Stop Time IVF PROCEDURE Nisreen Younger MD 09/17/19 0828 0915 Events Date Time Event Comment 09/17/2019 0828 An Start The patient was re-evaluated immediately before moderate or deep sedation use, before anesthesia induction, or before the anesthesia procedure. 0828 An Start Data 0837 Anesthesia Ready 0911 an stop data 0914 Handoff to RN I completed my handoff to the receiving nurse during which we: 1. Identified the patient 2. Identified the responsible provider 3. Reviewed the pertinent medical history 4. Discussed the surgical course 5. Reviewed intra-op anesthesia management and issues during anesthesia 6. Set expectations for post-procedure period 7. Allowed opportunity for questions and acknowledgement of understanding. 0915 An Stop Meds Name Total propOFol (DIPRIVAN) injection 150 mg propofol (DIPRIVAN) 500 mg in 50 mL infu cortney 494,740 mcg lactated ringers (LR) infusion 600 mL * Agents Name Aux O2 flow * Blood No blood administrations on file. Lines, Drains, and Airways Type Details Placement Removal Peripheral IV 09/17/19; 0815; Righ t; Antecubital; Inserted by RN; 1; None; 2% Chlorhexidine with IPA; 09/17/19; 1015; Therapy completed; No complications 09/17/19 0815 by Stephanie Quinones RN 09/17/19 1015 by Stephanie Quinones RN documented in this encounter Social History Tobacco Use Types Packs/Day Years [...] 05/04/2019 14:18 EDT documented in this encounter OR Notes * Anesthesia Postprocedure Evaluation - Nisreen Younger MD - 09/17/2019 0914 EST Patient: Jonathon Hall Last Vitals Vital signs were reviewed with the recovery nurse and are available in the Epic flowsheets. Relevant recent vitals: sat 100% Last Pain Score - Type of Anesthesia - general Anesthesia Post Evaluation Post-procedure vitals reviewed and are stable. Level of consciousness: awake Temperature status: normothermia and patient returned to pre-procedure baseline Respiratory status: airway patent and stable Cardiovascular status: stable Hydration status: adequate Nausea/Vomiting: none Pain management: adequate Post-Op Assessment: patient tolerated procedure well with no complications Patient participation: able to participate Disposition: outpatient/home Anesthesia Complications: No apparent anesthesia complications * Anesthesia Preprocedure Evaluation - Nisreen Younger MD - 09/17/2019 0702 EST Anesthesia Preprocedure Evaluation Patient Medical History, including Anesthesia History reviewed. Chart and Nursing Notes reviewed, including NPO status and Medication History. Additional ROS/History Findings: 34 F healthy, with tubal factor infertility, presents for egg retrieval. No Known Allergies Review of Systems Constitutional: Negative for chills and fever. Respiratory: Negative for cough and shortness of breath. Cardiovascular: Negative for chest pain, palpitations and orthopnea. Gastrointestinal: Negative for heartburn and nausea. Past Medical History: Diagnosis Date ??? Abnormal Pap smear of cervix ??? Back pain upper back pain, (when did this problem start?) 3 yrs ago Relevant Problems No relevant active problems Physical Exam Airway Mallampati: I TM distance: >3 FB Neck ROM: full Cardiovascular Rhythm: regular (-) murmur Dental - normal exam Pulmonary - normal exam Breath sounds clear to auscultation Abdominal Lab Results Component Value Date WBC 7.21 05/04/2019 HGB 13.1 05/04/2019 HCT 40.2 05/04/2019 MCV 82 05/04/2019 PLT 334 05/04/2019 Lab Results Component Value Date NA 139 12/12/2017 K 3.9 12/12/2017 CL 105 12/12/2017 CO2 23 12/12/2017 Lab Results Component Value Date CREATININE 0.8 12/12/2017 Anesthesia Plan ASA 1 Anesthesia Type - general Anesthesia plan and risks discussed. Informed consent obtained from patient. PAT Note (Notes from 08/18/19 through 09/17/19) No notes of this type exist for this encounter. documented in this encounter Plan of Treatment Not on file documented as of this encounter Visit Diagnoses Not on filedocumented in this encounter Administered Medications Inactive Administered Medications - up to 3 most recent administrations Medication Order MAR Action Action Date Dose Rate Site lactated ringers (LR) infusion FA IP EQF CONTINUOUS PRN FOR ONE STEP MEDS, Starting on Fri09/17/19 at 0830, Until Fri09/17/19 at 0915, Routine, Anesthesia Intraprocedure New Bag 09/17/2019 8:30 EST propofol (DIPRIVAN) 500 mg in 50 mL infusion intravenous, FA IP EQF CONTINUOUS PRN FOR ONE STEP MEDS, Starting on Fri09/17/19 at 0834, Until Fri09/17/19 at 0915, Routine, Anesthesia Intraprocedure New Bag 09/17/2019 8:34 EST 200 mcg/kg/min 102.4 mL/hr propOFol (DIPRIVAN) injection intravenous, PRN, Starting on Fri09/17/19 at 0834, Until Fri09/17/19 at 0915, Routine, Anesthesia Intraprocedure Given 09/17/2019 9:03 EST 30 mg Given 09/17/2019 8:52 EST 20 mg Given 09/17/2019 8:47 EST 20 mg documented in this encounter Care Teams Account Classification Clerk Relationship Specialty Start Date End Date Mary Montana MD [address] [place] [phone] PCP - General 04/05/19 10/27/22 Mary Montana MD [address] [place] [phone] 03/25/19 documented as of this encounter
--- OUTSIDE RECORDS SUMMARY | 2024-09-15 00:29 | XMS_ITS | Encounter Summary ---
Author Organization [facility] Address [address] [place] [address] Care Team Providers Care Feeder Driver Name Role Phone Mary Montana MD Unavailable Mary Montana MD Primary Care Provider [phone] Reason for Visit * Reason Comments Ultrasound IVF USE OM#8 Encounter Details Date Type Department Care Team (Late st Contact Info) Description 09/11/2019 9:00 EST Procedure visit [facility] - [facility] [address] [place], [place] [phone] Xi Alcala MD [address] [facility], [address] [place] [address] Encounter for assisted reproductive fertility cycle (Primary [...] documented in this encounter Progress Notes * Arvind Mcgarry MD - 09/11/2019 0900 EST Patient seen 09/11/2019 for IVF USE OM#8. See ultrasound report and USE flowsheet for full details. Patient discussed with attending Dr. Rodrigues. Arvind Mcgarry MD, PGY6 JULIAN Fellow 09/11/2019 / 9:16 Attestation statement: I discussed the patient with the resident/fellow at the time of the visit. Iagree with the findings and the plan of care documented in the resident's/fellow's note. documented in this encounter Miscellaneous Notes * Addendum Note - iX Alcala MD - 09/11/2019 0900 EST Addended by: XI RODRIGUES on: 11/22/2019 09:46 Modules accepted: Level of Service documented in this encounter Plan of Treatment Not on file documented as of this encounter Results * PROGESTERONE (09/11/2019 9:44 EST) Progesterone 0.5 See Table ng/mL 09/11/2019 10:57 EST [facility] Comment: Female Reference Ranges: [...] VENOUS BLOOD / Unknown Venipuncture / Unknown 09/11/2019 9:44 EST 09/11/2019 9:51 EST us Arvind Mcgarry MD CHEMISTRY & BLOOD GAS EDGAR AMBROSIO Final Result [facility] [address] [place] [address] * ESTRADIOL, ADULTS (09/11/2019 9:44 EST) [facility] Estradiol 1,989 See Note pg/mL 09/11/2019 10:57 EST [facility] Comment: NOTE: FEMALE REFERENCE [...] VENOUS BLOOD / Unknown Venipuncture / Unknown 09/11/2019 9:44 EST 09/11/2019 9:51 EST us Arvind Mcgarry MD CHEMISTRY & BLOOD GAS EDGAR AMBROSIO Final Result Performing Organization Address City/State/[facility] Co de Phone Number [facility] [address] [place] [address] documented in this encounter Visit Diagnoses Diagnosis Encounter for assisted reproductive fertility cycle- Primary Encounter for assisted reproductive fertility procedure cycle documented in this encounter Care Teams Feeder Driver Relationship Specialty Start Date End Date Mary Montana MD [address] [place] [address] PCP - General 04/05/19 10/27/22 Mary Montana MD [address] [place] [phone] 03/25/19 documented as of this encounter
--- OUTSIDE RECORDS SUMMARY | 2024-09-15 00:29 | XMS_ITS | Encounter Summary ---
Author Organization [facility] Address [address] [place] [address] Care Team Providers Care Field Artillery Targeting Technician Name Role Phone Mary Montana MD Unavailable Mary Montana MD Primary Care Provider [phone] Reason for Referral * SANDFILL OPERATOR SURFACE (Routine) - Specialty Report Received Specialty Diagnoses / Procedures [facility] Referred To Contact Diagnoses Encounter for assisted reproductive fertility procedure cycle Procedures US RIG SUPERINTENDENT EXAM (JULIAN ONLY) Arvind Mcgarry MD Phone: tel: fax: Referral ID Status Reason Start Date Expiration Date V isits Requested Visits Authorized [id number] Specialty Report Received 09/12/2019 1 1 Reason for Visit * SANDFILL OPERATOR SURFACE (Routine) - Specialty Report Received Specialty Diagnoses / Procedures [facility] Referred To Contact Diagnoses Encounter for assisted reproductive fertility procedure cycle Procedures US RIG SUPERINTENDENT EXAM (JULIAN ONLY) Arvind Mcgarry MD Phone: tel: fax: Referral ID Status Reason Start Date Expiration Date V isits Requested Visits Authorized [id number] Specialty Report Received 09/12/2019 1 1 Encounter Details Date Type Department Care Team (Latest Contact Info) Description 09/13/2019 8:00 EST - 09/14/2019 8:39 EST Hospital Encounter [facility] - [address] [address] Encounter for assisted reproductive fertility procedure cycle Discharge Disposition: Home or Self Care Social [...] Name Priority Date/Time Associated Diagnosis Comments US RIG SUPERINTENDENT EXAM (JULIAN ONLY) Routine 09/13/2019 8:35 EST Encounter for assisted reproductive fertility procedure cycle documented in this encounter Results * US RIG SUPERINTENDENT EXAM (JULIAN ONLY) (09/13/2019 8:35 EST) Anatomical Region Laterality Modality Ultrasound 09/13/2019 8:39 EST Narrative 09/14/2019 8:52 EST Indication Ovulation induction . Uterus ======= Uterus: ?Visualized Uterus position: ?? Retroverted Endometrium: ?? Trilaminar endometrium Endometrial thickness, total ?? 7.9 mm Right Ovary Rt ovary: ??Visualized, normal appearance Rt ovarian follicle(s): ?Follicles identified D1 24.2 mm D2 19.8 mm D3 20.5 mm Mean ?? 21.5 mm Vol ?5.145 cm cubed D1 14.7 mm D2 13.5 mm D3 16.5 mm Mean ?? 14.9 mm Vol ?1.711 cm cubed D1 15.3 mm D2 10.9 mm D3 14.7 mm Mean ?? 13.6 mm Vol ?1.278 cm cubed D1 13.6 mm D2 12.5 mm D3 14.2 mm Mean ?? 13.4 mm Vol ?1.258 cm cubed D1 10.5 mm D2 16.2 mm D3 12.4 mm Mean ?? 13.0 mm Vol ?1.098 cm cubed Rt ovary other findings: ?? 11<10 Left Ovary Lt ovary: ??Visualized, normal appearance Lt ovarian follicle(s): ?Follicles identified D1 11.2 mm D2 21.9 mm D3 11.3 mm Mean ?? 14.8 mm Vol ?1.445 cm cubed D1 15.7 mm D2 11.8 mm D3 14.5 mm Mean ?? 14.0 mm Vol ?1.401 cm cubed D1 11.8 mm D2 17.3 mm D3 12.1 mm Mean ?? 13.7 mm Vol ?1.288 cm cubed D1 13.6 mm D2 11.5 mm D3 12.0 mm Mean ?? 12.3 mm Vol ?0.977 cm cubed D1 15.6 mm D2 8.3 mm D3 8.6 mm Mean ?? 10.8 mm Vol ?0.583 cm cubed Lt ovary other findings: ?? 13<10 [place] Appears normal. Free fluid visualized (mild). Impression USF (Follicular) - 36970 1.) Trilaminar endometrium 2.) Maturing follicles. Follow-up Labs today and per ART team. Comment ========= Results discussed with pateint. DATE OF SERVICE: 09/13/2019 Procedure Note Tamra Alcala MD - 09/14/2019 Indication Ovulation induction . Uterus ======= Uterus: Visualized Uterus position: Retroverted Endometrium: Trilaminar endometrium Endometrial thickness, total 7.9 mm Right Ovary Rt ovary: Visualized, normal appearance Rt ovarian follicle(s): Follicles identified D1 24.2 mm D2 19.8 mm D3 20.5 mm Mean 21.5 mm Vol 5.145 cm cubed D1 14.7 mm D2 13.5 mm D3 16.5 mm Mean 14.9 mm Vol 1.711 cm cubed D1 15.3 mm D2 10.9 mm D3 14.7 mm Mean 13.6 mm Vol 1.278 cm cubed D1 13.6 mm D2 12.5 mm D3 14.2 mm Mean 13.4 mm Vol 1.258 cm cubed D1 10.5 mm D2 16.2 mm D3 12.4 mm Mean 13.0 mm Vol 1.098 cm cubed Rt ovary other findings: 11<10 Left Ovary Lt ovary: Visualized, normal appearance Lt ovarian follicle(s): Follicles identified D1 11.2 mm D2 21.9 mm D3 11.3 mm Mean 14.8 mm Vol 1.445 cm cubed D1 15.7 mm D2 11.8 mm D3 14.5 mm Mean 14.0 mm Vol 1.401 cm cubed D1 11.8 mm D2 17.3 mm D3 12.1 mm Mean 13.7 mm Vol 1.288 cm cubed D1 13.6 mm D2 11.5 mm D3 12.0 mm Mean 12.3 mm Vol 0.977 cm cubed D1 15.6 mm D2 8.3 mm D3 8.6 mm Mean 10.8 mm Vol 0.583 cm cubed Lt ovary other findings: 13<10 [place] Appears normal. Free fluid visualized (mild). Impression USF (Follicular) - 40339 1.) Trilaminar endometrium 2.) Maturing follicles. Follow-up Labs today and per ART team. Comment ========= Results discussed with pateint. DATE OF SERVICE: 09/13/2019 Arvind Mcgarry MD [facility] OB ORDERABLES Final Result documented in this encounter Visit Diagnoses Diagnosis Encounter for assisted reproductive fertility procedure cycle documented in this encounter Care Teams Field Artillery Targeting Technician Relationship Specialty Start Date End Date Mary Montana MD [address] [place] [address] PCP - General 04/05/19 10/27/22 Mary Montana MD [address] [place] [address] 03/25/19 documented as of this encounter
--- OUTSIDE RECORDS SUMMARY | 2024-09-15 00:29 | XMS_ITS | Encounter Summary ---
Author Organization [facility] Address [address] [place] [address] Care Team Providers Care Peanut Farmer Name Role Phone Mary Montana MD Unavailable Mary Montana MD Primary Care Provider [phone] Reason for Visit * Laboratory Services (Routine) - New Request Specialty Diagnoses / Procedures Referred By [facility] Referred To Contact Diagnoses Encounter for test, result unknown Procedures QUANT BETA HCG, Gary Lion MD Phone: tel: fax: Referral ID Status Reason Start Date Expiration Date V isits Requested Visits Authorized [id number] New Request 09/22/2019 1 1 Encounter Details Date Type Department Care Team (Late st Contact Info) Description 10/03/2019 12:30 EST Phlebotomy Only [facility] Center 2 Phlebotomy [address] [place], [place] [id number] Architectural Draftsperson, Acc Phlebotomy Encounter for assisted reproductive fertility cycle; Encounter for test, result unknown; resulting from assisted reproductive technology in first trimester Social History Tobacco Use Types Packs/Day Years [...] Procedure Name Priority Date/Time Associated Diagnosis Comments ESTRADIOL, ADULTS STAT 10/03/2019 12: 24 EST Encounter for assisted reproductive fertility cycle QUANT BETA HCG, Routine 10/03/2019 12:24 EST Encounter for test, result unknown documented in this encounter Results * (ABNORMAL) QUANT BETA HCG, (10/03/2019 12:24 EST) Beta HCG Quant, 155(H) <5 mIU/ml 10/03/2019 13:09 EST [facility] Comment: NOTE: : Negative: Less [...] ORDERA BLES Final Result Performing Organization Address City/[facility] Co de Phone Number [facility] [address] [place] [address] * ESTRADIOL, ADULTS (10/03/2019 12:24 EST) [facility] Estradiol 1,692 See Note pg/mL 10/03/2019 13:22 EST [facility] Comment: NOTE: FEMALE REFERENCE RANGES: [...] & BLOOD GAS ORD ERABLES Final Result [facility] [address] [place] [address] documented in this encounter Visit Diagnoses Diagnosis Encounter for assisted reproductive fertility cycle Encounter for assisted reproductive fertility procedure cycle Encounter for test, result unknown resulting from assisted reproductive technology in first trimester documented in this encounter Care Teams Peanut Farmer Relationship Specialty Start Date End Date Mary Montana MD [address] [place] [address] PCP - General 04/05/19 10/27/22 Mary Montana MD [address] [place] [address] 03/25/19 documented as of this encounter
--- OUTSIDE RECORDS SUMMARY | 2024-09-15 00:29 | XMS_ITS | Encounter Summary ---
Author Organization [facility] Address [address] [place] [address] Care Team Providers Care Biomedical Repair Technician Name Role Phone Mary Montana MD Unavailable Mary Montana MD Primary Care Provider [phone] Encounter Details Date Type Department Care Team (Late st Contact Info) Description 09/10/2019 Results Only [facility] Center Reproductive Medicine & Infertility Center - [address] [phone] Suzan Kaur MD [address] [place] [address], [address] [place] [address] Social History Tobacco Use Types [...] Priority Date/Time Associated Diagnosis Comments PROGESTERONE Routine 09/10/2019 7:41 EST documented in this encounter Results * PROGESTERONE (09/10/2019 7:41 EST) Progesterone 0.4 See Table ng/mL 09/10/2019 12:40 EST [facility] Comment: Female Reference Ranges: PHYSIOLOGICAL STATUS ?EXPECTED RANGE ? >= 18 Yrs Menstruating: (Non-) Follicular Phas: ?<= 1.4 ng/mL Luteal Phase: ? 3.3 - [...] established. Test performed or referred by The [address] [place] [address] 09/10/2019 7:41 EST 09/10/2019 7:41 EST Narrative [facility] - 09/10/2019 12:40 EST Does PT Have a Latex Allergy? NO us Suzan Kaur MD CHEMISTRY & BLOOD GAS ORD ERABLES Final Result [facility] documented in this encounter Visit Diagnoses Not on filedocumented in this encounter Care Teams Biomedical Repair Technician Relationship Specialty Start Date End Date Mary Montana MD [address] [place] [address] PCP - General 04/05/19 10/27/22 Mary Montana MD [address] [place] [address] 03/25/19 documented as of this encounter
--- OUTSIDE RECORDS SUMMARY | 2024-09-15 00:29 | XMS_ITS | Encounter Summary ---
Author Organization [facility] Address [address] [place] [address] Care Team Providers Care Seam Stay Stitcher Name Role Phone Mary Montana MD Unavailable Mary Montana MD Primary Care Provider [phone] Reason for Visit * Reason Onset Date Comments Results 09/11/2019 Encounter Details Date Type Department Care Team (Late st Contact Info) Description 09/11/2019 Telephone [facility] Reproductive Medicine & Infertility Center - [facility] [address] [place], [place] [phone] Arvind Mcgarry MD [address] [facility] [address] [place] [phone] Results Social History Tobacco Use Types Packs/Day [...] encounter Miscellaneous Notes * Telephone Encounter - Arvind Mcgarry MD - 09/12/2019 0830 EST TELEPHONE CALL TC to [facility] with lab results and plan. Discussed continuing same dose with plan to check E2 tomorrow versus decrease dose to FSH 50 and USE Friday. Patient will be in [place] tomorrow anyway and does not mind coming in to the lab for E2 check. Plan to continue same dose of FSH 75units tonight. Discussed with Dr. Peck. Electronically signed by: Arvind Mcgarry MD, PGY6 Fellow Reproductive Endocrinology & Infertility [facility] 09/12/2019 / 8:30 documented in this encounter Plan of Treatment Not on file documented as of this encounter Visit Diagnoses Diagnosis Encounter for assisted reproductive fertility cycle- Primary Encounter for assisted reproductive fertility procedure cycle documented in this encounter Orders Lab Orders Without Results Count Last Ordered D ate First Ordered Date ESTRADIOL, ADULTS 1 09/12/2019 documented in this encounter Care Teams Seam Stay Stitcher Relationship Specialty Start Date End Date Mary Montana MD [address] [place] [phone] PCP - General 04/05/19 10/27/22 Mary Montana MD [address] [place] [phone] 03/25/19 documented as of this encounter
--- OUTSIDE RECORDS SUMMARY | 2024-09-15 00:29 | XMS_ITS | Encounter Summary ---
Author Organization [facility] Address [address] [place] [address] Care Team Providers Care Pulp Mill Operator Name Role Phone Mary Montana MD Unavailable Mary Montana MD Primary Care Provider [phone] Reason for Visit * Reason Onset Date Comments Coordination Of Care 09/20/2019 Encounter Details Date Type Department Care Team ([facility] st Contact Info) Description 09/20/2019 Telephone [facility] Reproductive Medicine & Infertility Center - [facility] [address] [place], [place] [phone] Leanna Dickinson MD [address] [facility] [address] [place] [phone] Coordination Of Care Social History Tobacco Use [...] Telephone Encounter - Leanna Dickinson MD - 09/20/2019 0840 EST TC to [place] with embryo progression Day 0: Total # of eggs: 19 > IVF Day 1: 11 x 2PN 2 x vac. 2PN 2 x 3PN 2 x [place] 1 x Abnormal egg 1 x NF Day 3: 1x 12A 3x 8A 4x 8B+ 1x 8B 2x 7B+ 1x 5B 1x 2C 1x 10B- (from abnormal egg/ unknown 2PN) Lab recommends a day 5 transfer. Discussed quality of embryos and recommendation for day 5 embryo transfer. Discussed guidelines for filling bladder and avoidance of scents. Nurses to call with scheduled time after discussing with the lab. Leanna Dickinson MD Reproductive Endocrinology and Infertility Fellow documented in this encounter Plan of Treatment Not on file documented as of this encounter Visit Diagnoses Not on filedocumented in this encounter Care Teams Pulp Mill Operator Relationship Specialty Start Date End Date Mary Montana MD [address] [place] [address] PCP - General 04/05/19 10/27/22 Mary Montana MD [address] [place] [phone] 03/25/19 documented as of this encounter
--- OUTSIDE RECORDS SUMMARY | 2024-09-15 00:29 | XMS_ITS | Encounter Summary ---
Author Organization [facility] Address [address] [place] [address] Care Team Providers Care Settlement Clerk Name Role Phone Mary Montana MD Unavailable Mary Montana MD Primary Care Provider [phone] Encounter Details Date Type Department Care Team (Late st Contact Info) Description 10/01/2019 Results Only [facility] Reproductive Medicine & Infertility Center - [facility] [address] [place], [place] [phone] Gary Lion MD [address] [place] [phone] Social History Tobacco Use Types Packs/Day Years [...] Procedure Name Priority Date/Time Associated Diagnosis Comments BETA-HCG QUANT(WITH DILUT) - [facility] Routine 10/01/2019 8:10 EST documented in this encounter Results * (ABNORMAL) BETA-HCG QUANT(WITH DILUT) - [facility] (10/01/2019 8:10 EST) BETA-HCG QUANTITATIVE 78(H) <5 mIU/mL 10/01/2019 9:02 EST [facility] Comment: Negative: ?< 5 Indeterminate: 5-25 (repeated in 48 hrs) Positive: ?> 25 The results of this assay can be falsely lowered due to the consumption of Biotin. 10/01/2019 8:10 EST 10/01/2019 8:10 EST Narrative [facility] - 10/01/2019 9:02 EST Does PT Have a Latex Allergy? NO Enter/Edit CPT and ICD codes? N us Gary Lion MD CHEMISTRY & BLOOD GAS ORDERA BLES Final Result [facility] documented in this encounter Visit Diagnoses Not on filedocumented in this encounter Care Teams Settlement Clerk Relationship Specialty Start Date End Date Mary Montana MD [address] [place] [address] PCP - General 04/05/19 10/27/22 Mary Montana MD [address] [place] [address] 03/25/19 documented as of this encounter
--- OUTSIDE RECORDS SUMMARY | 2024-09-15 00:29 | XMS_ITS | Encounter Summary ---
Author Organization Health system Address [address] [place] [address] Care Team Providers Care Director Of Restaurant Name Role Phone Mary Montana MD Unavailable Mary Montana MD Primary Care Provider [phone] Livier Valdez NP Primary Care Provider [phone] Encounter Details Date Type Department Care Team (Late st Contact Info) Description 09/15/2019 Lab Requisition [facility] Pathology & Laboratory Medicine - [facility] [address] [place] [address] Unknown, Provider, Social History Tobacco Use Types [...] Priority Date/Time Associated Diagnosis Comments ESTRADIOL, ADULTS Routine 09/15/2019 7:50 EST documented in this encounter Results * ESTRADIOL, ADULTS (09/15/2019 7:50 EST) Estradiol 2,660 See Note pg/mL 09/15/2019 12:38 EST [facility] Comment: NOTE: FEMALE [...] this drug. Blood VENOUS BLOOD / Unknown 09/15/2019 7:50 EST 09/15/2019 11:24 EST us Provider Unknown CHEMISTRY & BLOOD GAS ORDERA BLES Final Result Performing Organization Address City/State/[facility] Co de Phone Number [facility] [address] [place] [address] documented in this encounter Visit Diagnoses Not on filedocumented in this encounter Additional Health Concerns Infection Onset Date Last Indicated Resolved Time R/O COVID-04/16/2023 04/16/2023 04/16/2023 23:3 7 EDT COVID-19 04/16/2023 04/16/2023 05/06/2023 22:1 5 EDT documented as of this encounter Care Teams Director Of Restaurant Relationship Specialty Start Date End Date Mary Montana MD [address] [place] [address] PCP - General 04/05/19 10/27/22 Livier Valdez, BAG CHECKER [address] [place] [address] PCP - General Family Medicine - Primary Care 10/28/22 Mary Montana MD [address] [place] [phone] 03/25/19 documented as of this encounter
--- OUTSIDE RECORDS SUMMARY | 2024-09-15 00:29 | XMS_ITS | Encounter Summary ---
Author Organization [facility] Address [address] [place] [address] Care Team Providers Care Functional Director Name Role Phone Mary Montana MD Unavailable Mary Montana MD Primary Care Provider [phone] Encounter Details Date Type Department Care Team (Late st Contact Info) Description 09/10/2019 Results Only [facility] Reproductive Medicine & Infertility Center - [address] [phone] Suzan Kaur MD [address] [place] [address], [address] [place] [address] Social History Tobacco Use Types [...] Date/Time Associated Diagnosis Comments ESTRADIOL, ADULTS Routine 09/10/2019 7:41 EST documented in this encounter Results * ESTRADIOL, ADULTS (09/10/2019 7:41 EST) Estradiol 1,549 See Note pg/mL 09/10/2019 12:40 EST [facility] Comment: NOTE: FEMALE REFERENCE RANGES: MENSTRUATING ? By cycle day relative to LH peak Follicular ?(-12 to -4 days) ??20-144 pg/mL Midcycle ?(-3 to +2 days) ?? 64-357 pg/mL Luteal ?(+4 t0 +12 days) ??56-214 pg/mL POSTMENOPAUSAL ?<33 pg/mL *Cross reactivity with Fulvestrant could lead to a falsely elevated estradiol result in patients treated with this drug. Test performed [place] [address] 09/10/2019 7:41 EST 09/10/2019 7:41 EST Narrative [facility] - 09/10/2019 12:40 EST Does PT Have a Latex Allergy? NO us Suzan Kaur MD CHEMISTRY & BLOOD GAS ORD ERABLES Final Result [facility] documented in this encounter Visit Diagnoses Not on filedocumented in this encounter Care Teams Functional Director Relationship Specialty Start Date End Date Mary Montana MD [address] [place] [address] PCP - General 04/05/19 10/27/22 Mary Montana MD [address] [place] [phone] 03/25/19 documented as of this encounter
--- OUTSIDE RECORDS SUMMARY | 2024-09-15 00:29 | XMS_ITS | Encounter Summary ---
Author Organization [facility] Address [address] [place] [address] Care Team Providers Care Engineering Drawings Checker Name Role Phone Mary Montana MD Unavailable Mary Montana MD Primary Care Provider [phone] Reason for Referral * MOTION PICTURE CAMERA LENS TECHNICIAN (Routine) - Specialty Report Received Specialty Diagnoses / Procedures Referred By [facility] Referred To Contact Diagnoses Encounter for assisted reproductive fertility procedure cycle Procedures US BRANCH MAKER EXAM (JULIAN ONLY) Arvind Mcgarry MD Phone: tel: fax: Referral ID Status Reason Start Date Expiration Date V isits Requested Visits Authorized [id number] Specialty Report Received 09/12/2019 1 1 Reason for Visit * Reason Onset Date Comments Results 09/12/2019 Encounter Details Date Type Department Care Team (Late st Contact Info) Description 09/12/2019 Telephone [facility] Reproductive Medicine & Infertility Center - [facility] [address] [place], [place] [phone] Arvind Mcgarry MD [address] [phone] Results Social History Tobacco Use Types [...] Encounter - Arvind Mcgarry MD - 09/12/2019 1543 EST TELEPHONE CALL TC to patient with E2 check today. E2 1959->3563 over one day. P4 1.4 Counseled to hold dose tonight. USE tomorrow at 0800. Continue Lupron tomorrow. Patient verbalized understanding of our conversation and/or counseling. All questions answered to her satisfaction. Instructed to call with any new questions or concerns. Discussed with Dr. Peck. Electronically signed by: Arvind Mcgarry MD, PGY6 Fellow Reproductive Endocrinology & Infertility [facility] 09/12/2019 / 15:50 documented in this encounter Plan of Treatment Not on file documented as of this encounter Results * US BRANCH MAKER EXAM (JULIAN ONLY) (09/13/2019 8:35 EST) Anatomical [...] fluid visualized (mild). Impression USF (Follicular) - 40946 1.) Trilaminar endometrium 2.) Maturing follicles. Follow-up Labs today and per ART team. Comment ========= Results discussed with saadiat. DATE OF SERVICE: 09/13/2019 Procedure Note Tamra [...] fluid visualized (mild). Impression USF (Follicular) - 41602 1.) Trilaminar endometrium 2.) Maturing follicles. Follow-up Labs today and per ART team. Comment ========= Results discussed with pateint. DATE OF SERVICE: 09/13/2019 Arvind Mcgarry MD [facility] OB ORDERABLES Final Result documented in this encounter Visit Diagnoses Diagnosis Encounter for assisted reproductive fertility procedure cycle- Primary Encounter for assisted reproductive fertility procedure cycle documented in this encounter Care Teams Engineering Drawings Checker Relationship Specialty Start Date End Date Mary Montana MD [address] [place] [phone] PCP - General 04/05/19 10/27/22 Mary Montana MD [address] [place] [phone] 03/25/19 documented as of this encounter
--- OUTSIDE RECORDS SUMMARY | 2024-09-15 00:29 | XMS_ITS | Encounter Summary ---
Author Organization [facility] Address [address] [place] [address] Care Team Providers Care Aircraft Maintenance Director Name Role Phone Mary Montana MD Unavailable Mary Montana MD Primary Care Provider Encounter Details Date Type Department Care Team (Late st Contact Info) Description 10/05/2019 Results Only [facility] Reproductive Medicine & Infertility Center - [facility] [address] [place], [place] [phone] Gary Lion MD [address] [place] [phone] Social History Tobacco Use Types Packs/Day [...] Associated Diagnosis Comments BETA-HCG QUANT(WITH DILUT) - [facility] Routine 10/05/2019 8:14 EST documented in this encounter Results * (ABNORMAL) BETA-HCG QUANT(WITH DILUT) - [facility] (10/05/2019 8:14 EST) BETA-HCG QUANTITATIVE 262(H) <5 mIU/mL 10/05/2019 11:24 EST [facility] Comment: Negative: ?< 5 Indeterminate: 5-25 (repeated in 48 hrs) Positive: ?> 25 The results of this assay can be falsely lowered due to the consumption of Biotin. 10/05/2019 8:14 EST 10/05/2019 8:14 EST Narrative [facility] - 10/05/2019 11:24 EST Does PT Have a Latex Allergy? NO Enter/Edit CPT and ICD codes? N us Gary Lion MD CHEMISTRY & BLOOD GAS ORDERA BLES Final Result [facility] documented in this encounter Visit Diagnoses Not on filedocumented in this encounter Care Teams Aircraft Maintenance Director Relationship Specialty Start Date End Date Mary Montana MD [address] [place] [address] PCP - General 04/05/19 10/27/22 Mary Montana MD [address] [place] [address] 03/25/19 documented as of this encounter
--- OUTSIDE RECORDS SUMMARY | 2024-09-15 00:29 | XMS_ITS | Encounter Summary ---
Author Organization [facility] Address [address] [place] [address] Care Team Providers Care Agricultural Researcher Name Role Phone Mary Montana MD Unavailable Mary Montana MD Primary Care Provider [phone] Reason for Visit * Reason Comments Follow-up Encounter Details Date Type Department Care Team (Late st Contact Info) Description 09/14/2019 8:30 EST Procedure visit [facility] Reproductive Medicine & Infertility Center - [facility] [address] [place], [place] [phone] Tamra Alcala MD [address] [facility], [address] [place] [address] Encounter for assisted reproductive fertility [...] Progress Notes * Leanna Dickinson MD - 09/14/2019 0830 EST IVF cycle #1, USE OM11 See USE flowsheet Leanna Dickinson MD Reproductive Endocrinology and Infertility Fellow Attestation statement: I discussed the patient with the resident/fellow at the time of the visit. Iagree with the findings and the plan of care documented in the resident's/fellow's note. * Stephanie Quinones RN - 09/14/2019 0830 EST Blood drawn via left AC using a butterfly needle. Pt tolerated procedure well. Pressure and 2x2 applied, secured with paper tape. One SST tube(s) sent to the lab per order. documented in this encounter Plan of Treatment Not on file documented as of this encounter Procedures Procedure Name Priority Date/Time Associated Diagnosis Comments PROGESTERONE STAT 09/14/2019 10:03 EST Encounter for assisted reproductive fertility cycle ESTRADIOL, ADULTS STAT 09/14/2019 10: 03 EST Encounter for assisted reproductive fertility cycle documented in this encounter Results * PROGESTERONE (09/14/2019 10:03 EST) Progesterone 0.8 See Table ng/mL 09/14/2019 11:18 EST [facility] Comment: Female Reference Ranges: PHYSIOLOGICAL [...] VENOUS BLOOD / Unknown Venipuncture / Unknown 09/14/2019 10:03 EST 09/14/2019 10:09 EST us Leanna Dickinson MD CHEMISTRY & BLOOD GAS ORDERA BLES Final Result [facility] [address] [place] [address] * ESTRADIOL, ADULTS (09/14/2019 10:03 EST) Estradiol 3,324 See Note pg/mL 09/14/2019 12:19 EST [facility] Comment: NOTE: FEMALE REFERENCE RANGES: [...] VENOUS BLOOD / Unknown Venipuncture / Unknown 09/14/2019 10:03 EST 09/14/2019 10:09 EST Leanna Dickinson MD CHEMISTRY & BLOOD GAS ORDERA BLES Final Result [facility] [address] [place] [address] documented in this encounter Visit Diagnoses Diagnosis Encounter for assisted reproductive fertility cycle- Primary Encounter for assisted reproductive fertility procedure cycle documented in this encounter Care Teams Agricultural Researcher Relationship Specialty Start Date End Date Mary Montana MD [address] [place] [address] PCP - General 04/05/19 10/27/22 Mary Montana MD [address] [place] [address] 03/25/19 documented as of this encounter
--- OUTSIDE RECORDS SUMMARY | 2024-09-15 00:29 | XMS_ITS | Encounter Summary ---
Author Organization [facility] Address [address] [place] [address] Care Team Providers Care Electric Distribution Engineer Name Role Phone Mary Montana MD Unavailable Mary Montana MD Primary Care Provider [phone] Reason for Visit * Reason Comments Infertility Encounter Details Date Type Department Care Team (Late st Contact Info) Description 09/13/2019 8:30 EST Procedure visit [facility] Reproductive Medicine & Infertility Center - [facility] [address], [place] [id number] Tamra Alcala MD [address] [facility], [address] [place] [address] Encounter for assisted reproductive fertility [...] documented in this encounter Progress Notes * Cely Dickinson MD - 09/13/2019 0830 EST IVF cycle #1, tubal factor. USE OM10 See USE flowsheet Cely Dickinson MD Reproductive Endocrinology and Infertility Fellow * Stephanie Quinones RN - 09/13/201930 EST Blood drawn via left AC using a butterfly needle. Pt tolerated procedure well. Pressure and 2x2 applied, secured with paper tape. One SST tube(s) sent to the lab per order. * Tamra Alcala MD - 09/13/2019 0830 EST Attestation statement: I discussed the patient with the resident/fellow at the time of the visit. Iagree with the findings and the plan of care documented in the resident's/fellow's note. documented in this encounter Miscellaneous Notes * Addendum Note - Cely Dickinson MD - 09/13/2019 0830 ESTAddended by: CELY DICKINSON on: 09/13/2019 12:59 Modules accepted: Orders documented in this encounter Plan of Treatment Not on file documented as of this encounter Procedures Procedure Name Priority Date/Time Associated Diagnosis Comments PROGESTERONE Routine 09/13/2019 9:04 EST Encounter for assisted reproductive fertility cycle ESTRADIOL, ADULTS Routine 09/13/2019 9:0 4 EST Encounter for assisted reproductive fertility cycle documented in this encounter Results * PROGESTERONE (09/13/2019 9:04 EST) Progesterone 1.1 See Table ng/mL 09/13/2019 10:22 EST [facility] Comment: Female Reference [...] VENOUS BLOOD / Unknown Venipuncture / Unknown 09/13/2019 9:04 EST 09/13/2019 9:09 EST us Cely Dickinson MD CHEMISTRY & BLOOD GAS ORDERA BLES Final Result [facility] [address] [place] [address] * ESTRADIOL, ADULTS (09/13/2019 9:04 EST) Estradiol 3,699 See Note pg/mL 09/13/2019 10:44 EST [facility] Comment: NOTE: FEMALE [...] VENOUS BLOOD / Unknown Venipuncture / Unknown 09/13/2019 9:04 EST 09/13/2019 9:09 EST Cely Dickinson MD CHEMISTRY & BLOOD GAS ORDERA BLES Final Result [facility] [address] [place] [address] documented in this encounter Visit Diagnoses Diagnosis Encounter for assisted reproductive fertility cycle- Primary Encounter for assisted reproductive fertility procedure cycle documented in this encounter Care Teams Electric Distribution Engineer Relationship Specialty Start Date End Date Mary Montana MD [address] [place] [address] PCP - General 04/05/19 10/27/22 Mary Montana MD [address] [place] [address] 03/25/19 documented as of this encounter
--- OUTSIDE RECORDS SUMMARY | 2024-09-15 00:29 | XMS_ITS | Encounter Summary ---
Author Organization [facility] Address [address] [place] [address] Care Team Providers Care Freight Car Inspector Name Role Phone Mary Montana MD Unavailable Mary Montana MD Primary Care Provider [phone] Reason for Visit * Reason Comments Infertility Encounter Details Date Type Department Care Team (Latest Contact Info) Description 09/09/2019 8:30 EST Procedure visit [facility] Reproductive Medicine & Infertility Center - [facility] [address] [place] [address] Gary Lion MD [address] [place] [address] [address] Encounter for assisted reproductive fertility cycle (Primary [...] Progress Notes * Leanna Dickinson MD - 09/09/2019 0830 EST 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 Amisha Dickinson MD Reproductive Endocrinology and Infertility Fellow documented in this encounter Plan of Treatment Not on file documented as of this encounter Procedures Procedure Name Priority Date/Time Associated Diagnosis Comments PROGESTERONE Routine 09/09/2019 9:28 EST Encounter for assisted reproductive fertility cycle ESTRADIOL, ADULTS Routine 09/09/2019 9:2 8 EST Encounter for assisted reproductive fertility cycle documented in this encounter Results * PROGESTERONE (09/09/2019 9:28 EST) Progesterone 0.4 See Table ng/mL 09/09/2019 11:03 EST [facility] Comment: Female Reference Ranges: [...] VENOUS BLOOD / Unknown Venipuncture / Unknown 09/09/2019 9:28 EST 09/09/2019 9:44 EST Lenana Dickinson MD CHEMISTRY & BLOOD GAS ORDERA BLES Final Result Performing Organization Address [facility] de Phone Number [facility] [address] [place] [address] * ESTRADIOL, ADULTS (09/09/2019 9:28 EST) Estradiol 1,158 See Note pg/mL 09/09/2019 11:03 EST [facility] Comment: NOTE: FEMALE REFERENCE [...] VENOUS BLOOD / Unknown Venipuncture / Unknown 09/09/2019 9:28 EST 09/09/2019 9:44 EST Leanna Dickinson MD CHEMISTRY & BLOOD GAS ORDERA BLES Final Result Performing Organization Address [facility]/ZIP Co de Phone Number [facility] [address] [place] [address] documented in this encounter Visit Diagnoses Diagnosis Encounter for assisted reproductive fertility cycle- Primary Encounter for assisted reproductive fertility procedure cycle documented in this encounter Care Teams Freight Car Inspector Relationship Specialty Start Date End Date Mary Montana MD [address] [place] [address] PCP - General 04/05/19 10/27/22 Mary Montana MD [address] [place] [address] 03/25/19 documented as of this encounter
--- OUTSIDE RECORDS SUMMARY | 2024-09-15 00:29 | XMS_ITS | Encounter Summary ---
Author Organization [facility] Address [address] [place] [address] Care Team Providers Care Store Custodian Name Role Phone Mary Montana MD Unavailable Mary Montana MD Primary Care Provider [phone] Reason for Visit * Reason Onset Date Comments Coordination Of Care 09/20/2019 Encounter Details Date Type Department Care Team (Late st Contact Info) Description 09/20/2019 Telephone [facility] Reproductive Medicine & Infertility Center - [facility] [address] [place], [place] [phone] Fany Walters RN Coordination Of Care Social [...] Telephone Encounter - Fany Walters RN - 09/20/2019 1351 EST [facility] to [facility] to schedule FET. Asked her to arrive at 0830 for 0900 transfer. She verbalized agreement. documented in this encounter Plan of Treatment Not on file documented as of this encounter Visit Diagnoses Not on filedocumented in this encounter Care Teams Store Custodian Relationship Specialty Start Date End Date Mary Montana MD [address] [place] [address] PCP - General 04/05/19 10/27/22 Mary Montana MD [address] [place] [phone] 03/25/19 documented as of this encounter
--- OUTSIDE RECORDS SUMMARY | 2024-09-15 00:29 | XMS_ITS | Encounter Summary ---
Author Organization [facility] Address [address] [place] [address] Care Team Providers Care Administrative Medical Director Name Role Phone Mary Montana MD Unavailable Mary Montana MD Primary Care Provider [phone] Livier Valdez NP Primary Care Provider [phone] Encounter Details Date Type Department Care Team (Late st Contact Info) Description 09/10/2019 Lab Requisition [facility] Pathology & Laboratory Medicine - [facility] [address] [place] [address] Unknown, Provider, Social History Tobacco Use Types [...] Priority Date/Time Associated Diagnosis Comments PROGESTERONE STAT 09/10/2019 7:41 EST ESTRADIOL, ADULTS STAT 09/10/2019 7:41 EST documented in this encounter Results * PROGESTERONE (09/10/2019 7:41 EST) Progesterone 0.4 See Table ng/mL 09/10/2019 12:28 EST [facility] Comment: Female Reference Ranges: [...] been established. Blood VENOUS BLOOD / Unknown 09/10/2019 7:41 EST 09/10/2019 11:38 EST Provider Unknown CHEMISTRY & BLOOD GAS ORDERA BLES Final Result Performing Organization Address [facility] Co de Phone Number [facility] [address] [place] [address] * ESTRADIOL, ADULTS (09/10/2019 7:41 EST) [facility] Signature Estradiol 1,549 See Note pg/mL 09/10/2019 12:28 EST [facility] Comment: NOTE: FEMALE REFERENCE [...] this drug. Blood VENOUS BLOOD / Unknown 09/10/2019 7:41 EST 09/10/2019 11:38 EST us Provider Unknown CHEMISTRY & BLOOD GAS ORDERA BLES Final Result Performing Organization Address [facility] de Phone Number [facility] [address] [place] [address] documented in this encounter Visit Diagnoses Not on filedocumented in this encounter Additional Health Concerns Infection Onset Date Last Indicated Resolved Time R/O COVID-19 04/16/2023 04/16/2023 04/16/2023 23:3 7 EDT COVID-19 04/16/2023 04/16/2023 05/06/2023 22:1 5 EDT documented as of this encounter Care Teams Administrative Medical Director Relationship Specialty Start Date End Date Mary Montana MD [address] [place] [address] PCP - General 04/05/19 10/27/22 Livier Valdez, ADULT LIVE IN CAREGIVER [address] [place], [place] [phone] PCP - General Family Medicine - Primary Care 10/28/22 Mary Montana MD [address] [place] [phone] 03/25/19 documented as of this encounter
--- OUTSIDE RECORDS SUMMARY | 2024-09-15 00:29 | XMS_ITS | Encounter Summary ---
Author Organization [facility] Address [address] [place] [address] Care Team Providers Care Application Performance Engineer Name Role Phone Mary Montana MD Unavailable Mary Montana MD Primary Care Provider [phone] Reason for Visit * Reason Onset Date Comments Results 10/03/2019 Encounter Details Date Type Department Care Team (Late st Contact Info) Description 10/03/2019 Telephone [facility] [address] [place], [place] [id number] [place] [id number] [address] Results Social History Tobacco Use Types Packs/Day [...] Addendum Note - Brynn Yates RN - 10/05/2019 0809 ESTAddended by: BRYNN YATES on: 10/05/2019 08:09 Modules accepted: Orders * Telephone Encounter - Jose David Pearson MD - 10/03/2019 1312 EST Phone call to patient to discuss labs from this morning. Detailed message left on identified voicemail. Component Latest Ref Rng & Units 10/01/2019 10/03/2019 BETA-HCG QUANT(WITH DILUT) - [facility] <5 mIU/mL 78 (H) Quant Beta HCG, Preg <5 mIU/ml 155 (H) With an appropriately rising hCG, would repeat one more time Friday10/05/2019. If still rising appropriately would schedule early US. Asked patient to call back with any questions/concerns. documented in this encounter Plan of Treatment Not on file documented as of this encounter Visit Diagnoses Diagnosis resulting from assisted reproductive technology in first trimester- Primary documented in this encounter Care Teams Application Performance Engineer Relationship Specialty Start Date End Date Mary Montana MD [address] [place] [address] PCP - General 04/05/19 10/27/22 Mary Montana MD [address] [place] [address] 03/25/19 documented as of this encounter
--- OUTSIDE RECORDS SUMMARY | 2024-09-15 00:29 | XMS_ITS | Encounter Summary ---
Author Organization [facility] Address [address] [place] [address] Care Team Providers Care Flatwork Finisher Hand Name Role Phone Mary Montana MD Unavailable Mary Montana MD Primary Care Provider [phone] Reason for Referral * SOLUTIONS OPERATOR (Routine) - Specialty Report Received Specialty Diagnoses / Procedures [facility]erred To Contact Diagnoses In vitro fertilization Procedures US SURGICAL SERVICES MANAGER EXAM (JULIAN ONLY) Suzan Kaur MD Phone: tel: fax: Referral ID Status Reason Start Date Expiration Date V isits Requested Visits Authorized [id number] Specialty Report Received 09/10/2019 1 1 Reason for Visit * SOLUTIONS OPERATOR (Routine) - Specialty Report Received Specialty Diagnoses / Procedures [facility] Referred To Contact Diagnoses In vitro fertilization Procedures US SURGICAL SERVICES MANAGER EXAM (JULIAN ONLY) Suzan Kaur MD Phone: tel: fax: Referral ID Status Reason Start Date Expiration Date V isits Requested Visits Authorized [id number] Specialty Report Received 09/10/2019 1 1 Encounter Details Date Type Department Care Team (Latest Contact Info) Description 09/11/2019 8:47 EST - 09/12/2019 23:[address] [facility] OBGYN Services - [address] [address] In vitro fertilization; Encounter for assisted reproductive fertility cycle Discharge Disposition: Home or Self Care [...] Priority Date/Time Associated Diagnosis Comments PROGESTERONE Routine 09/11/2019 9:44 EST Encounter for assisted reproductive fertility cycle ESTRADIOL, ADULTS Routine 09/11/2019 9:4 4 EST Encounter for assisted reproductive fertility cycle US SURGICAL SERVICES MANAGER EXAM (JULIAN ONLY) Routine 09/11/2019 9:29 EST In vitro fertilization documented in this encounter Results * PROGESTERONE (09/11/2019 9:44 EST) Progesterone 0.5 See Table ng/mL 09/11/2019 10:57 EST [facility] Comment: Female Reference Ranges: [...] Unknown 09/11/2019 9:44 EST 09/11/2019 9:51 EST Arvind Mcgarry MD CHEMISTRY & BLOOD GAS ORDE DAILY Final Result Performing Organization Address [facility] de Phone Number [facility] [address] [place] [address] * ESTRADIOL, ADULTS (09/11/2019 9:44 EST) [facility] Signature Estradiol 1,989 See Note pg/mL 09/11/2019 10:57 EST [facility] Comment: NOTE: FEMALE REFERENCE [...] Unknown 09/11/2019 9:44 EST 09/11/2019 9:51 EST Arvind Mcgarry MD CHEMISTRY & BLOOD GAS ORDE RABSUSI Final Result Performing Organization Address [facility] de Phone Number [facility] [address] [place] [address] * US SURGICAL SERVICES MANAGER EXAM (JULIAN ONLY) (09/11/2019 9:29 EST) Anatomical [...] fluid visualized (trace). Impression USF (Follicular) - 71659 Trilaminar the endometrium Follicular pool as above. [...] fluid visualized (trace). Impression USF (Follicular) - 12134 Trilaminar the endometrium Follicular pool as above. Follow-up Per ART Team. Comment ========= results discussed with patient. DATE OF SERVICE: 09/11/2019 Suzan Kaur MD [facility] OB ORDERABLES Gissell l Result documented in this encounter Visit Diagnoses Diagnosis In vitro fertilization Encounter for assisted reproductive fertility procedure cycle Encounter for assisted reproductive fertility cycle Encounter for assisted reproductive fertility procedure cycle documented in this encounter Care Teams Flatwork Finisher Hand Relationship Specialty Start Date End Date Mary Montana MD [address] [place] [address] PCP - General 04/05/19 10/27/22 Mary Montana MD [address] [place] [address] 03/25/19 documented as of this encounter
--- OUTSIDE RECORDS SUMMARY | 2024-09-15 00:29 | XMS_ITS | Encounter Summary ---
Author Organization [facility] Address [address] [place] [address] Care Team Providers Care Petrophysicist Name Role Phone Mary Montana MD Unavailable Mary Montana MD Primary Care Provider [phone] Encounter Details Date Type Department Care Team (Late st Contact Info) Description 09/12/2019 12:45 EST Phlebotomy Only [facility] 2 Phlebotomy [address] [place], [place] [phone] Textile Machine Maintenance Mechanic, Acc Phlebotomy Encounter for assisted reproductive fertility cycle (Primary [...] Priority Date/Time Associated Diagnosis Comments PROGESTERONE STAT 09/12/2019 12:43 EST Encounter for assisted reproductive fertility cycle ESTRADIOL, ADULTS STAT 09/12/2019 12: 43 EST Encounter for assisted reproductive fertility cycle documented in this encounter Results * PROGESTERONE (09/12/2019 12:43 EST) Progesterone 1.4 See Table ng/mL 09/12/2019 13:58 EST [facility] Comment: Female Reference Ranges: [...] ORD ERABLES Final Result Performing Organization Address [facility] Co de Phone Number [facility] [address] [place] [address] * ESTRADIOL, ADULTS (09/12/2019 12:43 EST) Estradiol 3,563 See Note pg/mL 09/12/2019 14:09 EST [facility] Comment: NOTE: FEMALE REFERENCE [...] ORD ERABLES Final Result Performing Organization Address [facility] Co de Phone Number [facility] [address] [place] [address] documented in this encounter Visit Diagnoses Diagnosis Encounter for assisted reproductive fertility cycle- Primary Encounter for assisted reproductive fertility procedure cycle documented in this encounter Care Teams Petrophysicist Relationship Specialty Start Date End Date Mary Montana MD [address] [place] [address] PCP - General 04/05/19 10/27/22 Mary Montana MD [address] [place] [address] 03/25/19 documented as of this encounter
--- OUTSIDE RECORDS SUMMARY | 2024-09-15 00:29 | XMS_ITS | Encounter Summary ---
Author Organization [facility] Address [address] [place] [address] Care Team Providers Care Booster Station Operator Name Role Phone Mary Montana MD Unavailable Mary Montana MD Primary Care Provider [phone] Encounter Details Date Type Department Care Team (Late st Contact Info) Description 09/15/2019 Results Only [facility] Reproductive Medicine & Infertility Center - [address] [phone] Suzan Kaur MD [address] [place] [address], [address] [place] [address] Social History Tobacco Use Types [...] Results * ESTRADIOL, ADULTS (09/15/2019 7:50 EST) [facility] Signature Estradiol 2,660 See Note pg/mL 09/15/2019 14:25 EST [facility] Comment: NOTE: FEMALE REFERENCE [...] drug. Test performed [place] [address] 09/15/2019 7:50 EST 09/15/2019 7:50 EST Narrative [facility] - 09/15/2019 14:25 EST Does PT Have a Latex Allergy? NO us Suzan Kaur MD CHEMISTRY & BLOOD GAS ORD ERABLES Final Result [facility] documented in this encounter Visit Diagnoses Not on filedocumented in this encounter Care Teams Booster Station Operator Relationship Specialty Start Date End Date Mary Montana MD [address] [place] [address] PCP - General 04/05/19 10/27/22 Mary Montana MD [address] [place] [phone] 03/25/19 documented as of this encounter
--- OUTSIDE RECORDS SUMMARY | 2024-09-15 00:29 | XMS_ITS | Encounter Summary ---
Author Organization [facility] Address [address] [place] [address] Care Team Providers Care Film Sound Coordinator Name Role Phone Mary Montana MD Unavailable Mary Montana MD Primary Care Provider [phone] Reason for Referral * CABLE TELEVISION ACCESS COORDINATOR (Routine) - Specialty Report Received Specialty Diagnoses / Procedures Referred By [facility] t Referred To Contact Diagnoses Encounter for assisted reproductive fertility cycle Procedures US PROCUREMENT DIRECTOR EXAM (JULIAN ONLY) Suzan Kaur MD Phone: tel: fax: Referral ID Status Reason Start Date Expiration Date V isits Requested Visits Authorized [id number] Specialty Report Received 09/13/2019 1 1 Reason for Visit * Reason Onset Date Comments Results 09/13/2019 Encounter Details Date Type Department Care Team (Late st Contact Info) Description 09/13/2019 Telephone [facility] Reproductive Medicine [facility] Infertility Center - [facility] [address] [place] [address] Fany Walters RN Results Social History Tobacco [...] Telephone Encounter - Fany Walters RN - 09/13/2019 1311 EST Telephoned patient to review results of labs and continued medication plan. Left detailed message. Component Latest Ref Rng & Units 09/13/2019 Estradiol See Note pg/mL 3,699 Progesterone See Table ng/mL 1.1 Advised patient to take 37.5 units Gonal F tonight . Next step is USE tomorrow 09/14/19 @ 0840. Discussed with Dr Kaur. Pt verbalized understanding of plan. documented in this encounter Plan of Treatment Not on file documented as of this encounter Results * US PROCUREMENT DIRECTOR EXAM (JULIAN ONLY) (09/14/2019 9:33 EST) Anatomical Region Laterality Modality Ultrasound 09/14/2019 9:02 EST Narrative 09/14/2019 10:10 EST Indication IVF cycle #1, USE OM11 Lupron 10:5, GN 0.5/0. Uterus ======= Uterus: ?Appears normal Uterus position: ?? Retroverted Endometrium: ?? Trilaminar endometrium Endometrial thickness, total ?? 11.3 mm Right Ovary Rt ovary: ??Stimulated w/ multiple follicles consistent w/ hormonal therapy Rt ovarian follicle(s): ?Follicles identified D1 25.6 mm D2 19.7 mm D3 20.7 mm Mean ?? 22.0 mm Vol ?5.470 cm cubed D1 20.7 mm D2 16.8 mm D3 16.7 mm Mean ?? 18.0 mm Vol ?3.025 cm cubed Mean ?? 16.0 mm D1 10.6 mm D2 14.1 mm D3 20.3 mm Mean ?? 15.0 mm Vol ?1.590 cm cubed D1 14.7 mm D2 17.0 mm D3 12.0 mm Mean ?? 14.6 mm Vol ?1.572 cm cubed D1 16.1 mm D2 15.2 mm D3 11.6 mm Mean ?? 14.3 mm Vol ?1.482 cm cubed Mean ?? 13.0 mm Mean ?? 12.0 mm Mean ?? 11.0 mm Left Ovary Lt ovary: ??Stimulated w/ multiple follicles consistent w/ hormonal therapy Lt ovarian follicle(s): ?Follicles identified Mean ?? 20.0 mm D1 15.6 mm D2 18.0 mm D3 15.5 mm Mean ?? 16.4 mm Vol ?2.272 cm cubed D1 11.6 mm D2 21.0 mm D3 10.9 mm Mean ?? 14.5 mm Vol ?1.393 cm cubed D1 15.9 mm D2 10.6 mm D3 14.1 mm Mean ?? 13.5 mm Vol ?1.242 cm cubed D1 11.7 mm D2 15.9 mm D3 12.7 mm Mean ?? 13.4 mm Vol ?1.234 cm cubed D1 11.8 mm D2 10.3 mm D3 13.4 mm Mean ?? 11.8 mm Vol ?0.852 cm cubed Mean ?? 11.0 mm [place] Appears normal. Free fluid visualized. Impression USE (IVF Follicular) - 60260 Retroverted, trilaminar uterus with maturing follicles as measured above. Follow-up Plan per IVF team . Comment ========= Z31.83 encounter for assisted reproductive fertility procedure cycle. DATE OF SERVICE: 09/14/2019 Procedure Note Tamra Alcala MD - 09/14/2019 Indication IVF cycle #1, USE OM11 Lupron 10:5, GN 0.5/0. Uterus ======= Uterus: Appears normal Uterus position: Retroverted Endometrium: Trilaminar endometrium Endometrial thickness, total 11.3 mm Right Ovary Rt ovary: Stimulated w/ multiple follicles consistent w/ hormonaltherapy Rt ovarian follicle(s): Follicles identified D1 25.6 mm D2 19.7 mm D3 20.7 mm Mean 22.0 mm Vol 5.470 cm cubed D1 20.7 mm D2 16.8 mm D3 16.7 mm Mean 18.0 mm Vol 3.025 cm cubed Mean 16.0 mm D1 10.6 mm D2 14.1 mm D3 20.3 mm Mean 15.0 mm Vol 1.590 cm cubed D1 14.7 mm D2 17.0 mm D3 12.0 mm Mean 14.6 mm Vol 1.572 cm cubed D1 16.1 mm D2 15.2 mm D3 11.6 mm Mean 14.3 mm Vol 1.482 cm cubed Mean 13.0 mm Mean 12.0 mm Mean 11.0 mm Left Ovary Lt ovary: Stimulated w/ multiple follicles consistent w/ hormonaltherapy Lt ovarian follicle(s): Follicles identified Mean 20.0 mm D1 15.6 mm D2 18.0 mm D3 15.5 mm Mean 16.4 mm Vol 2.272 cm cubed D1 11.6 mm D2 21.0 mm D3 10.9 mm Mean 14.5 mm Vol 1.393 cm cubed D1 15.9 mm D2 10.6 mm D3 14.1 mm Mean 13.5 mm Vol 1.242 cm cubed D1 11.7 mm D2 15.9 mm D3 12.7 mm Mean 13.4 mm Vol 1.234 cm cubed D1 11.8 mm D2 10.3 mm D3 13.4 mm Mean 11.8 mm Vol 0.852 cm cubed Mean 11.0 mm [place] Appears normal. Free fluid visualized. Impression USE (IVF Follicular) - 62512 Retroverted, trilaminar uterus with maturing follicles as measuredabove. Follow-up Plan per IVF team . Comment ========= Z31.83 encounter for assisted reproductive fertility procedure cycle. DATE OF SERVICE: 09/14/2019 us Suzan Kaur MD [facility] US OB ORDERABLES Gissell l Result documented in this encounter Visit Diagnoses Diagnosis Encounter for assisted reproductive fertility cycle- Primary Encounter for assisted reproductive fertility procedure cycle Encounter for assisted reproductive fertility cycle Encounter for assisted reproductive fertility procedure cycle documented in this encounter Care Teams Film Sound Coordinator Relationship Specialty Start Date End Date Mary Montana MD [address] [place] [address] PCP - General 04/05/19 10/27/22 Mary Montana MD [address] [place] [address] 03/25/19 documented as of this encounter
--- OUTSIDE RECORDS SUMMARY | 2024-09-15 00:29 | XMS_ITS | Encounter Summary ---
Author Organization [facility] Address [address] [place] [address] Care Team Providers Care Printer Small Print Shop Name Role Phone Mary Montana MD Unavailable Mary Montana MD Primary Care Provider [phone] Reason for Visit * Reason Onset Date Comments Other 09/16/2019 Wants a sterile urine cup Encounter Details Date Type Department Care Team (Late st Contact Info) Description 09/16/2019 Telephone [facility] [address] [place] [address] Adry Oneill MD [address] [facility], [address] [place] [address] Other (Wants a sterile urine cup) Social History Tobacco Use Types Packs/Day Years [...] encounter Miscellaneous Notes * Telephone Encounter - Denice Mattson MA - 09/16/2019 1055 EST She will be here by 5! * Telephone Encounter - Ladi Best RN - 09/16/2019 1053 EST Verena - could you please call pt and have her come by to sweet pickle maker a sterile specimen cup. Thanks! * Telephone Encounter - Rama Guzman - 09/16/2019 1043 EST Pt is having a procedure tomorrow at [facility] she is wondering if she can get a sterile urine cup from us because she can't make it to [place] today documented in this encounter Plan of Treatment Not on file documented as of this encounter Visit Diagnoses Not on filedocumented in this encounter Care Teams Printer Small Print Shop Relationship Specialty Start Date End Date Mary Montana MD [address] [place] [address] PCP - General 04/05/19 10/27/22 Mary Montana MD [address] [place] [address] 03/25/19 documented as of this encounter
--- OUTSIDE RECORDS SUMMARY | 2024-09-15 00:29 | XMS_ITS | Encounter Summary ---
Author Organization [facility] Address [address] [place] [address] Care Team Providers Care Kiln Firer Helper Name Role Phone Mary Montana MD Unavailable Mary Montana MD Primary Care Provider Encounter Details Date Type Department Care Team (Latest Contact Info) Description 09/22/2019 8:34 EST - 09/23/2019 23:59 EST Hospital Encounter [facility] Reproductive Medicine & Infertility Center - [facility] [address] [place] [address] Encounter for assisted reproductive fertility cycle (Primary Dx) Discharge Disposition: Home or Self [...] this encounter Discharge Instructions * Discharge Instructions* Miracle Quinones RN - 09/22/2019 9:48 EST 1. Avoid strenuous activity and heavy lifting until after your test. No lifting more than10 pounds. No high impact exercising like jogging, running , or step aerobics. 2. Nothing in the vagina, intercourse or tampons, until after your first HCG blood draw ( test). 3. Resume your daily progesterone injection tomorrow. DO NOT stop them for any reason until directed to do so. 4. Remember that mild cramping and/or a small amount of pink, dark red, or brown vaginal spotting are normal following an embryo transfer for up to two weeks, sometimes longer. Feel free to call us at the number provided should you have any concerns regarding cramping/spotting after your embryo transfer. 5. Due for HCG 10/01 and 10/03 documented in this encounter Medications at Time [...] documented in this encounter Progress Notes * Miracle Quinones RN - 09/22/2019 0948 EST 100mg/2mL IM progesterone in oil. Floor stock. Vial checked and confirmed for integrity. Patient here for??embryo transfer 1. ??Route: ??Intramuscular?Location: ??Left??hip 2. ??Med Lot #: ??[id number] 3. ??[facility] #: ??[id number] 4. ??Exp Date: ??2021 5. ??Nuclear Medicine Pet Ct Technologist: ??Hikma Patient EducationTopic: Continue daily progesterone injections Method: Demonstration, Handout and Verbal Taught to: Family and Patient Barriers: None Outcomes: independent and verbalized understanding I was supervised by Dr Gary Lion who was present and immediately available in the office suite. MIRACLE QUINONES RN 09/22/2019 9:48 documented in this encounter Procedure Notes * Gary Lion MD - 09/22/2019 1114 ESTProcedure(s): MT EMBRYO TRANSFER INTRAUTERINE Pre-Procedure Diagnose(s): Encounter for assisted reproductive fertility cycle Post-Procedure Diagnose(s): Encounter for assisted reproductive fertility cycle EMBRYO TRANSFER NOTE Embryo culture results were discussed with the patient. Today we plan on transferring one day 5 embryo(s). Additionally, the patient will have 6 vitrified today and 4 remain in culture until day 6. Time out performed prior to start of procedure. ? Endometrial lining measured 13.2 mm; excellent visualization. ?? Sterile speculum inserted, cervix cleaned with sterile culture media. Endocervix cleaned of cervical mucus with small cotton swab. No bleeding occurred. Under ultrasound guidance, the Johns embryo transfer catheter was passed without difficulty in one attempt into the endocervical canal to the level of the internal cervical os. The lab was then notified to load the embryo into the inner catheter: embryo was 3AA. The stylette guide was then removed from the outer sheath, and the inner catheterwas introduced to the middle to upper third of the cavity. The embryo was then transferred into theuterine cavity. After a 15 second pause, the catheter was removed and returned to the lab. There was no blood or mucus on the catheter, and no embryo was retained. No uterine cramping occurred. The speculum was then removed. The patient did not require drainage of her bladder. Transfer performed by Dr. Lion, assisted by Dr. Dickinson. ?? Leanna Dickinson MD Reproductive Endocrinology and Infertility Fellow Attestation statement: I was present for and participated in this entire procedure. I agree with the procedure note as seen above. Gary Lion MD Reproductive Endocrinology and Infertility documented in this encounter Miscellaneous Notes * Addendum Note - Jena Dee - 09/23/[address] [facility] addended by: Jena Dee on: 09/24/2019 9:47 Actions taken: Charge Capture section accepted documented in this encounter Plan of Treatment Not on file documented as of this encounter Visit Diagnoses Diagnosis Encounter for assisted reproductive fertility cycle- Primary Encounter for assisted reproductive fertility procedure cycle documented in this encounter Care Teams Kiln Firer Helper Relationship Specialty Start Date End Date Mary Montana MD [address] [place] [address] PCP - General 04/05/19 10/27/22 Mary Montana MD [address] [place] [phone] 03/25/19 documented as of this encounter
--- OUTSIDE RECORDS SUMMARY | 2024-09-15 00:29 | XMS_ITS | Encounter Summary ---
Author Organization [facility] Address [address] [place] [address] Care Team Providers Care Pants Presser Name Role Phone Mary Montana MD Unavailable Mary Montana MD Primary Care Provider [phone] Reason for Referral * SPRINKLER FITTER APPRENTICE (Routine) - Specialty Report Received Specialty Diagnoses / Procedures [facility] To Contact Diagnoses Encounter for assisted reproductive fertility cycle Procedures US STRIPPER PRELIMINARY EXAM (JULIAN ONLY) Suzan Kaur MD Phone: tel: fax: Referral ID Status Reason Start Date Expiration Date V isits Requested Visits Authorized [id number] Specialty Report Received 09/13/2019 1 1 Reason for Visit * SPRINKLER FITTER APPRENTICE (Routine) - Specialty Report Received Specialty Diagnoses / Procedures [facility] Referred To Contact Diagnoses Encounter for assisted reproductive fertility cycle Procedures US STRIPPER PRELIMINARY EXAM (JULIAN ONLY) Suzan Kaur MD Phone: tel: fax: Referral ID Status Reason Start Date Expiration Date V isits Requested Visits Authorized [id number] Specialty Report Received 09/13/2019 1 1 Encounter Details Date Type Department Care Team (Latest Contact Info) Description 09/14/2019 8:40 EST - 09/15/2019 23:59 EST Hospital Encounter [facility] OBGYN Services - [address] [address] Encounter for assisted reproductive fertility cycle Discharge [...] Name Priority Date/Time Associated Diagnosis Comments US STRIPPER PRELIMINARY EXAM (JULIAN ONLY) Routine 09/14/2019 9:33 EST Encounter for assisted reproductive fertility cycle documented in this encounter Results * US STRIPPER PRELIMINARY EXAM (JULIAN ONLY) (09/14/2019 9:33 EST) Anatomical [...] fluid visualized. Impression USE (IVF Follicular) - 01646 Retroverted, trilaminar uterus with maturing follicles as [...] fluid visualized. Impression USE (IVF Follicular) - 73228 Retroverted, trilaminar uterus with maturing follicles as measuredabove. Follow-up Plan per IVF team . Comment ========= Z31.83 encounter for assisted reproductive fertility procedure cycle. DATE OF SERVICE: 09/14/2019 us Suzan Kaur MD [facility] OB ORDERABLES Gissell l Result documented in this encounter Visit Diagnoses Diagnosis Encounter for assisted reproductive fertility cycle Encounter for assisted reproductive fertility procedure cycle documented in this encounter Care Teams Pants Presser Relationship Specialty Start Date End Date Mary Montana MD [address] [place] [phone] PCP - General 04/05/19 10/27/22 Mary Montana MD [address] [place] [phone] 03/25/19 documented as of this encounter
--- OUTSIDE RECORDS SUMMARY | 2024-09-15 00:30 | XMS_ITS | Encounter Summary ---
Author Organization [facility] Address [address] [place] [address] Care Team Providers Care Athletics Director Name Role Phone Mary Montana MD Unavailable Mary Montana MD Primary Care Provider [phone] Reason for Visit * Reason Onset Date Comments Appointment Related 04/13/2019 Encounter Details Date Type Department Care Team (Late st Contact Info) Description 04/13/2019 Telephone [facility] [address] [place] [address] [place] [id number] [phone] Appointment Related Social History Tobacco Use Types [...] on file documented as of this encounter Miscellaneous Notes * Telephone Encounter - Stephanie Quinones RN - 04/14/2019 1006 EDT Call back to Jonathon. Reviewed that once her IVF workup is complete and she has had her IVF intake,she will be placed into a month for IVF. A few months before her cycle, she and her partner will need to come in for a nurse visit to review the calendar and medication mixing/administration techniques. Jonathon verbalized understanding and had no further questions. * Telephone Encounter - Miranda Hooks - 04/14/2019 0953 EDT Spoke with pt. They will be here at 9am on 05/04 Jonathon has some questions as to the next step after the CON and said she assumes there will be another visit to discuss results and plan, etc. Could you please reach out with this information? * Telephone Encounter - Stephanie Quinones RN - 04/13/2019 1613 EDT Pt expects menses 04/27-. Scheduled for HyCoSy on 05/05 at 1315. Advised pt to arrive 10 min early for her appointment and to take 600-800mg of ibuprofen/motrin 1 hour prior to her scheduled US to help with post procedural cramping/discomfort. Pt verbalized understanding. Also scheduled partner for ARAIZA at 1245 on the same day. Reviewed collection instructions. Pt verbalized understanding. She reports that she would like to move forward with IVF as soon as possible. Advised that she needs to complete her workup before being given an official date. She agreed to do this. She and her partner will have STI screening labs drawn on 05/05 as well. She will obtain most recent pap results andbring to her IVF intake, schedule for 05/05 at 1415. * Telephone Encounter - Bela Vela - 04/13/2019 1545 EDT .TEWOMENS Are you calling for gynecological, obstetric, or reproductive care? Fertility Have you been seen here before? Yes If yes, who do you see (Refer to if cant remember)?Pearson Reason for Call as described by patient: Patient needs a hycosy but I could not find one that worked with her cycle. I scheduled her for 05/10 @ 1:45 but it would be day 13 of her cycle. Does this number have a voicemail, is it ok to leave a detailed message? Yes [phone] Bela Vela 04/13/2019 15:46 documented in this encounter Plan of Treatment Not on file documented as of this encounter Visit Diagnoses Diagnosis Routine screening for STI (sexually transmitted infection)- Primary Screening examination for venereal disease documented in this encounter Care Teams Athletics Director Relationship Specialty Start Date End Date Mary Montana MD [address] [place] [phone] PCP - General 04/05/19 10/27/22 Mary Montana MD [address] [place] [phone] 03/25/19 documented as of this encounter
--- OUTSIDE RECORDS SUMMARY | 2024-09-15 00:30 | XMS_ITS | Encounter Summary ---
Author Organization [facility] Address [address] [place] [address] Care Team Providers Care Cost Estimator Name Role Phone Mary Montana MD Primary Care Provider [phone] Encounter Details Date Type Department Care Team (Latest Contact Info) Description 01/02/2016 10:09 EDT - 01/02/2016 23:59 EDT Hospital Encounter [facility] [address] [place] [address] Unknown, Provider, Discharge Disposition: Home or Self Care Social History Tobacco Use Types Packs/Day Years Used Date Smoking Tobacco: Never Alcohol Use Standard Drinks/Week Comments Yes 0 (1 standard drink = 0.6 oz pur e alcohol) 1 x pr wk Comments Unknown Sex and Gender Information Value Date Recorded Sex Assigned at Not on file Legal Sex Female 18:26 EST Gender Identity Female 10/03/2019 12:19 EST Sexual Orientation Not on file documented as of this encounter Medications at Time of Discharge HYDROCODONE BIT/ACETAMINOPHEN (VICODIN ORAL) Take 0.5 Tabs by mouth as needed. 04/07/2019 ZOLPIDEM TARTRATE (AMBIEN ORAL) Take 1 Tab by mouth at bedtime. 04/07/2019 documented as of this encounter Discharge Disposition Disposition Code Departure Means Destination Home or Self Fdc documented in this encounter Plan of Treatment Not on file documented as of this encounter Visit Diagnoses Not on filedocumented in this encounter Care Teams Cost Estimator Relationship Specialty Start Date End Date Mary Montana MD [address] [place] [phone] PCP - General 10/15/11 03/24/19 documented as of this encounter
--- OUTSIDE RECORDS SUMMARY | 2024-09-15 00:30 | XMS_ITS | Encounter Summary ---
Author Organization [facility] Address [address] [place] [address] Care Team Providers Care Wallpaper Installer Name Role Phone Mary Montana MD Unavailable Mary Montana MD Primary Care Provider [phone] Encounter Details Date Type Department Care Team (Latest Contact Info) Description 09/02/2019 7:58 EST - 09/03/2019 23:59 EST Hospital Encounter [facility] OBN Services - [facility] [address] [place], [place] [id number] Encounter for assisted reproductive fertility cycle Discharge [...] Name Priority Date/Time Associated Diagnosis Comments US BASELINE INVITRO Routine 09/02/2019 8:26 EST Encounter for assisted reproductive fertility cycle documented in this encounter Results * US BASELINE INVITRO (09/02/2019 8:26 EST) Anatomical Region Laterality Modality Pelvis Ultrasound 09/02/2019 8:11 EST Narrative 09/02/2019 8:50 EST Indication Baseline for Fresh IVF for tubal factor, Lupron 10:5 cycle, standard IVF. Uterus ======= Uterus: ?Appears normal Uterus position: ?? Retroverted Myometrium: ?Appears normal Endometrium: ?? Thin endometrium Cervix details: ?Normal appearance Endometrial thickness, total ?? 2.4 mm Uterus other findings: Mock ET: fundus 7.5, TL 6.5 Right Ovary Rt ovary: ??Visualized, normal appearance Outline: ?? Smooth Rt ovary morphology: ?? Normal physiologic changes Rt ovary other findings: ?? AFC = 9 Left Ovary Lt ovary: ??Visualized, normal appearance Outline: ?? Smooth Lt ovary morphology: ?? normal physiologic changes Lt ovary other findings: ?? AFC = 6 [place] Appears normal. Free fluid visualized (mild). Impression Baseline - 93615 Retroverted uterus with a thin endometrial lining that measures as above. Mock ET performed, see above. The ovaries are normal in appearance bilaterally and are quiescent. Combined AFC = 15. Follow-up Per JULIAN team. Comment ========= Z31.83 encounter for assisted reproductive fertility procedure cycle. Ultrasound findings discussed w/patient. DATE OF SERVICE: 09/02/2019 Procedure Note Gary Lion MD - 09/02/2019 Indication Baseline for Fresh IVF for tubal factor, Lupron 10:5 cycle, standardIVF. Uterus ======= Uterus: Appears normal Uterus position: Retroverted Myometrium: Appears normal Endometrium: Thin endometrium Cervix details: Normal appearance Endometrial thickness, total 2.4 mm Uterus other findings: Mock ET: fundus 7.5, TL 6.5 Right Ovary Rt ovary: Visualized, normal appearance Outline: Smooth Rt ovary morphology: Normal physiologic changes Rt ovary other findings: AFC = 9 Left Ovary Lt ovary: Visualized, normal appearance Outline: Smooth Lt ovary morphology: normal physiologic changes Lt ovary other findings: AFC = 6 [place] Appears normal. Free fluid visualized (mild). Impression Baseline - 30951 Retroverted uterus with a thin endometrial lining that measures as above.Mock ET performed, see above. The ovaries are normal in appearancebilaterally and are quiescent. Combined AFC = 15. Follow-up Per JULIAN team. Comment ========= Z31.83 encounter for assisted reproductive fertility procedure cycle.Ultrasound findings discussed w/patient. DATE OF SERVICE: 09/02/2019 us Suzan Kaur MD IMG US OB ORDERABLES Gissell l Result documented in this encounter Visit Diagnoses Diagnosis Encounter for assisted reproductive fertility cycle Encounter for assisted reproductive fertility procedure cycle documented in this encounter Care Teams Wallpaper Installer Relationship Specialty Start Date End Date Mary Montana MD [address] [place] [phone] PCP - General 04/05/19 10/27/22 Mary Montana MD [address] [place] [phone] 03/25/19 documented as of this encounter
--- OUTSIDE RECORDS SUMMARY | 2024-09-15 00:30 | XMS_ITS | Encounter Summary ---
Author Organization [facility] Address [address] [place] [address] Care Team Providers Care Sole Sewer Hand Name Role Phone Mary Montana MD Primary Care Provider [phone] Encounter Details Date Type Department Care Team (Latest Contact Info) Description 07/18/2016 6:55 EST - 07/18/2016 23:59 EST Hospital Encounter [facility] [address] [place] [address] Unknown, Provider, Discharge Disposition: Home or Self [...] Code Departure Means Destination Home or Self Assisted documented in this encounter Plan of Treatment Not on file documented as of this encounter Visit Diagnoses Not on filedocumented in this encounter Care Teams Sole Sewer Hand Relationship Specialty Start Date End Date Mary Montana MD [address] [place] [phone] PCP - General 10/15/11 03/24/19 documented as of this encounter
--- OUTSIDE RECORDS SUMMARY | 2024-09-15 00:30 | XMS_ITS | Encounter Summary ---
Author Organization [facility] Address [address] [place] [address] Care Team Providers Care Drama Critic Name Role Phone Mary Montana MD Unavailable Mary Montana MD Primary Care Provider [phone] Encounter Details Date Type Department Care Team (Late st Contact Info) Description 04/30/2019 Results Only [facility] [place] [address] [address] Brynn Victoria MD [address] [facility], Level [address] [place] [address] Social History Tobacco Use Types [...] on file documented as of this encounter Plan of Treatment Not on file documented as of this encounter Procedures Procedure Name Priority Date/Time Associated Diagnosis Comments ESTRADIOL, ADULTS Routine 04/30/2019 8:17 EDT documented in this encounter Results * ESTRADIOL, ADULTS (04/30/2019 8:17 EDT) Estradiol 36 () pg/ml 05/03/2019 10:44 EDT [facility] Comment: By day in cycle relative to LH peak: Follicular Phase (-12 to -4 days): ??20-144 Midcycle (-3 to +2 days): ? 64-357 Luteal Phase (+4 to +12 days): ??56-214 Postmenopausal: ??0 - 32 ?? Cross reactivity with fulvestrant could lead to falsely elevated estradiol results in patients treated with this drug. Test performed [place] [address] 04/30/2019 8:17 EDT 04/30/2019 8:17 EDT Narrative [facility] - 05/03/2019 10:44 EDT FSH WAS DRAWN EARLIER, BUT NEEDED TO BE DONE ON DAY 3 OF PERIOD, WHICH IS TODAY. SO THE OTHER FSH level IS NOT ACCURATE. Does PT Have a Latex Allergy? NO us Brynn Victoria MD CHEMISTRY & BLOOD GAS ORDER BETTINA Final Result [facility] documented in this encounter Visit Diagnoses Not on filedocumented in this encounter Care Teams Drama Critic Relationship Specialty Start Date End Date Mary Montana MD [address] [place] [phone] PCP - General 04/05/19 10/27/22 Mary Montana MD [address] [place] [address] 03/25/19 documented as of this encounter
--- OUTSIDE RECORDS SUMMARY | 2024-09-15 00:30 | XMS_ITS | Encounter Summary ---
Author Organization [facility] Address [address] [place] [address] Care Team Providers Care Municipal Engineer Name Role Phone Mary Montana MD Unavailable Mary Montana MD Primary Care Provider [phone] Livier Valdez NP Primary Care Provider [phone] Encounter Details Date Type Department Care Team (Late st Contact Info) Description 09/02/2019 Documentation Visit [facility] Repro[facility] - [facility] [address] [place], [place] [phone] Arvind Mcgarry MD [address] [place] [address] [place] [phone] Social History Tobacco Use Types Packs/Day Years [...] documented as of this encounter Care Teams Municipal Engineer Relationship Specialty Start Date End Date Mary Montana MD [address] [place] [phone] PCP - General 04/05/19 10/27/22 Livier Valdez NP [address] [place] [address] PCP - General Family Medicine - Primary Care 10/28/22 Mary Montana MD [address] [place] [phone] 03/25/19 documented as of this encounter
--- OUTSIDE RECORDS SUMMARY | 2024-09-15 00:30 | XMS_ITS | Encounter Summary ---
Author Organization [facility] Address [address] [place] [address] Care Team Providers Care General Repairer Name Role Phone Unknown, Provider Primary Care Provider Mary Cardenas MD Unavailable Reason for Visit * Reason Onset Date Comments Appointment Related 03/25/2019 Encounter Details Date Type Department Care Team (Late st Contact Info) Description 03/25/2019 Telephone [facility] Medicine [facility] - [facility] [address] [place] [address] [place] [address] [phone] Appointment Related Social History Tobacco Use Types Packs/Day Years Used Date Smoking Tobacco: Never Assessed Comments Unknown Sex and Gender Information Value Date Recorded Sex Assigned at Not on file Legal Sex Female 18:26 EST Gender Identity Female 10/03/2019 12:19 EST Sexual Orientation Not on file documented as of this encounter Miscellaneous Notes * Telephone Encounter - Yuni Moreau - 03/25/2019 1034 EDT Reason for appointment or cancellation as described by patient: I called to schedule the patient per her referral Date of appointment: 04/07 Yuni Moreau 03/25/2019 10:34 documented in this encounter Plan of Treatment Not on file documented as of this encounter Visit Diagnoses Not on filedocumented in this encounter Care Teams General Repairer Relationship Specialty Start Date End Date Unknown, Provider, PCP - General 03/25/19 04/04/19 Mary Montana MD [address] [place] [phone] 03/25/19 documented as of this encounter
--- OUTSIDE RECORDS SUMMARY | 2024-09-15 00:30 | XMS_ITS | Encounter Summary ---
Author Organization [facility] Address [address] [place] [address] Care Team Providers Care Analytical Laboratory Technician Name Role Phone Mary Montana MD Primary Care Provider [phone] Unknown, Provider Primary Care Provider Unava ilable Mary Montana MD Unavailable Mary Montana MD Primary Care Provider [phone] Encounter Details Date Type Department Care Team (Late st Contact Info) Description 12/12/2017 Historical Results Only [facility] - [facility] Lab - Main [address] [phone] Cassidy Duckworth PA [address] [place] [address] Social History Tobacco Use Types Packs/Day Years [...] Priority Date/Time Associated Diagnosis Comments COMPREHENSIVE METABOLIC POC - CV Routine 12/12/2017 13:56 EDT documented in this encounter Results * COMPREHENSIVE METABOLIC POC - [facility] (12/12/2017 13:56 ED) [facility] Signature Albumin % 4.2 3.50 - 5.00 G/DL 12/15/2017 13:56 [facility] ALKALINE PHOSPHATASE - [facility] 78 38.00 - 126.00 U/L 12/15/2017 13:56 [facility] BILIRUBIN TOTAL 0.2 0.20 - 1.30 MG/DL 12/15/2017 13:56 [facility] BUN - [facility] 14 7.00 - 20.00 MG/DL 12/15/2017 13:56 [facility] CALCIUM - [facility] 9.5 8.50 - 10.50 MG/DL 12/15/2017 13:56 [facility] Chloride 105 98.00 - 107.00 MMOL/L 12/15/2017 13:56 [facility] CO2 Total 23 22.00 - 30.00 MMOL/L 12/15/2017 13:56 [facility] CREATININE 0.8 0.70 - 1.50 MG/DL 12/15/2017 13:56 [facility] Anion Gap 11 7 - 17 MMOL/L 12/15/2017 13:56 [facility] GLUCOSE - [facility] 99 70.00 - 100.00 MG/DL 12/15/2017 13:56 [facility] Potassium 3.9 3.50 - 5.10 MMOL/L 12/15/2017 13:56 [facility] Sodium 139 137.00 - 145.00 MMOL/L 12/15/2017 13:56 [facility] TOTAL PROTEIN - [facility] 7.3 6.30 - 8.20 G/DL 12/15/2017 13:56 [facility] SGOT/AST - [facility] 33 15.00 - 46.00 U/L 12/15/2017 13:56 [facility] SGPT/ALT - [facility] 46 13.00 - 69.00 U/L 12/15/2017 13:56 [facility] 12/12/2017 13:5 6 EDT 12/12/2017 13:56 EDT us Cassidy MARTINS CHEMISTRY & BLOOD GAS ORDERAB LES Final Result [facility] documented in this encounter Visit Diagnoses Not on filedocumented in this encounter Care Teams Analytical Laboratory Technician Relationship Specialty Start Date End Date Mary Montana MD [address] [place] [phone] PCP - General 10/15/11 03/24/19 Unknown, Provider, [address] [place] [address] PCP - General 03/25/19 9 Mary Montana MD [address] [place] [address] PCP - General 04/05/19 10/27/22 Mary Montana MD [address] [place] [address] 03/25/19 documented as of this encounter
--- OUTSIDE RECORDS SUMMARY | 2024-09-15 00:30 | XMS_ITS | Encounter Summary ---
Author Organization [facility] Address [address] [place] [address] Care Team Providers Care Machine Maintenance Repairer Name Role Phone Mary Montana MD Unavailable Mary Montana MD Primary Care Provider [phone] Encounter Details Date Type Department Care Team (Late st Contact Info) Description 04/30/2019 Results Only [facility] - [facility] - [address] [address] Brynn Victoria MD [address] [facility], [address] [place] [address] Social History Tobacco Use Types [...] Procedure Name Priority Date/Time Associated Diagnosis Comments FSH Routine 04/30/2019 8:17 EDT documented in this encounter Results * FSH (04/30/2019 8:17 EDT) FSH - [facility] 8.8 () mIU/ml 05/03/2019 10:44 EDT [facility] Comment: Follicular: ??2.5-10.2 Mid-Cycle Peak: ??3.4-33.4 Luteal: ??1.5-9.1 Postmenopausal: ??23.0-116.3 Test performed or referred by The [address] [address] 04/30/2019 8:17 EDT 04/30/2019 8:17 EDT Narrative [facility] - 05/03/2019 10:44 EDT FSH WAS DRAWN EARLIER, BUT NEEDED TO BE DONE ON DAY 3 OF PERIOD, WHICH IS TODAY. SO THE OTHER FSH level IS NOT ACCURATE. Does PT Have a Latex Allergy? NO Brynn Victoria MD CHEMISTRY & BLOOD GAS ORDER BETTINA Final Result [facility] documented in this encounter Visit Diagnoses Not on filedocumented in this encounter Care Teams Machine Maintenance Repairer Relationship Specialty Start Date End Date Mary Montana MD [address] [place] [phone] PCP - General 04/05/19 10/27/22 Mary Montana MD [address] [place] [phone] 03/25/19 documented as of this encounter
--- OUTSIDE RECORDS SUMMARY | 2024-09-15 00:30 | XMS_ITS | Encounter Summary ---
Author Organization [facility] Address [address] [place] [address] Care Team Providers Care Office Manager Receptionist Name Role Phone Mary Montana MD Unavailable Mary Montana MD Primary Care Provider [phone] Livier Valdez NP Primary Care Provider Encounter Details Date Type Department Care Team (Late st Contact Info) Description 09/07/2019 Lab Requisition [facility] Pathology & Laboratory Medicine - [facility] [address] [place] [address] Unknown, Provider, Social History Tobacco Use Types [...] Date/Time Associated Diagnosis Comments ESTRADIOL, ADULTS Routine 09/07/2019 7:43 EST documented in this encounter Results * ESTRADIOL, ADULTS (09/07/2019 7:43 EST) Estradiol 358 See Note pg/mL 09/07/2019 15:06 EST [facility] Comment: NOTE: FEMALE REFERENCE [...] this drug. Blood VENOUS BLOOD / Unknown 09/07/2019 7:43 EST 09/07/2019 14:03 EST us Provider Unknown CHEMISTRY & BLOOD GAS ORDERA BLES Final Result Performing Organization Address City/State/[facility] Co de Phone Number [facility] [address] [place] [address] documented in this encounter Visit Diagnoses Not on filedocumented in this encounter Additional Health Concerns Infection Onset Date Last Indicated Resolved Time R/O COVID-19 04/16/2023 04/16/2023 04/16/2023 23:3 7 EDT COVID-19 04/16/2023 04/16/2023 05/06/2023 22:1 5 EDT documented as of this encounter Care Teams Office Manager Receptionist Relationship Specialty Start Date End Date Mary Montana MD [address] [place] [address] PCP - General 04/05/19 10/27/22 Livier Valdez VERIFICATION LEAD [address] [place] [address] PCP - General Family Medicine - Primary Care 10/28/22 Mary Montana MD [address] [place] [phone] 03/25/19 documented as of this encounter
--- OUTSIDE RECORDS SUMMARY | 2024-09-15 00:30 | XMS_ITS | Encounter Summary ---
Author Organization [facility] Address [address] [place] [address] Care Team Providers Care Data Migration Consultant Name Role Phone Mary Montana MD Primary Care Provider [phone] Unknown, Provider Primary Care Provider Unava ilable Mary Montana MD Unavailable Mary Montana MD Primary Care Provider [phone] Encounter Details Date Type Department Care Team (Late st Contact Info) Description 01/30/2016 Historical Results Only [facility] [address] [place] [place], [place] [address] Eduin Cerrato MD [address] [facility] [address] [place] [address] Social History Tobacco Use Types Packs/Day Years [...] Name Priority Date/Time Associated Diagnosis Comments MR SHOULDER WO CONTRAST 01/30/2016 12:07 EDT documented in this encounter Results * MR SHOULDER WO CONTRAST (01/30/2016 12:07 EDT) Anatomical Region Laterality Modality Upper Extremities Other 01/30/2016 12:0 7 EDT Narrative 01/30/2016 12:23 EDT ? EXAM: MAGNETIC RESONANCE IMAGING/SHOULDER EX. D/ (1954) ? CLINICAL INFORMATION: ? M25.511 PAIN IN RIGHT SHOULDER ? SHOULDER RT W/O CONTRAST ? Signs and Symptoms/Comments: M25.511 PAIN IN RIGHT SHOULDER ? Comparison: MR right shoulder on 11/29/2011. Right radiograph on ? 12/03/2015.. ? Technique: Noncontrast MR of the right shoulder was performed with ? the following sequences: Axial T2 fat sat, axial proton density, ? coronal T2 fat-sat, coronal proton density, sagittal T2 fat-sat, ? sagittal T1. ? FINDINGS: ? Supraspinatus: Mild distal supraspinatus tendinosis is present. There ? is persistent bursal-sided fraying and possibly a minimal ? bursal-sided partial-thickness tear at the level of the middle 3rd of ? the humeral head (coronal T2 fat-sat image 10). No atrophy or fatty ? infiltration of the supraspinatus muscle is present. ? Infraspinatus: The infraspinatus tendon is intact. No atrophy or ? fatty infiltration of the infraspinatus muscle is present. ? Teres minor: The teres minor tendon is intact. No atrophy or fatty ? infiltration of the teres minor muscle is present. ? Subscapularis: The subscapularis tendon is intact. No atrophy or ? fatty infiltration of the subscapularis muscle is present. ? Long head biceps tendon: The long of the biceps tendon is intact and ? normally positioned within the bicipital groove. ? Glenoid labrum: No labral tear is identified, although MR ? arthrography is more sensitive if there is specific clinical concern. ? Cartilage: The chondral surfaces of the glenohumeral joint are ? preserved. ? Joint space: No joint effusion or definite intra-articular body is ? identified. ? Acromioclavicular joint: Minimal acromioclavicular arthrosis is ? present without sizable inferiorly-directed osteophytes. Mild lateral ? downsloping of the acromion exerts mild mass effect on the underlying ? supraspinatous tendon. ? Bone marrow: The bone marrow signal is unremarkable. ? Subacromial-subdeltoid bursa: Trace subacromial-subdeltoid bursal ? fluid is identified. ? IMPRESSION: ? PAGE 1 ? Signed Report ? (CONTINUED) ? 1. ??Mild distal supraspinatus tendinosis with mild bursal-sided ? fraying and a possible minimal bursal-sided partial-thickness tear. ? Findings similar to 2011. ? 2. ??Minimal acromioclavicular arthrosis. ? 3. ??Mild lateral downsloping acromion. Please correlate for ? subacromial impingement syndrome. ? REPORT SIGNED IN OTHER VENDOR SYSTEM 01/30/2016 ?Reported By: Mesfin Whitten MD ? CC: ? Transcribed Date/Time: 01/30/2016 (1223) ? Project Lead: ? Printed Date/Time: 01/22/2019 (0459) ? PAGE 2 ? Signed Report ? Procedure Note Mesfin Whitten MD - 06/16/2019 EXAM: MAGNETIC RESONANCE IMAGING/SHOULDER EX. D/ (1954) CLINICAL INFORMATION: M25.511 PAIN IN RIGHT SHOULDER SHOULDER RT W/O CONTRAST Signs and Symptoms/Comments: M25.511 PAIN IN RIGHT SHOULDER Comparison: MR right shoulder on 11/29/2011. Right radiograph on 12/03/2015.. Technique: Noncontrast MR of the right shoulder was performed with the following sequences: Axial T2 fat sat, axial proton density, coronal T2 fat-sat, coronal proton density, sagittal T2 fat-sat, sagittal T1. FINDINGS: Supraspinatus: Mild distal supraspinatus tendinosis is present.There is persistent bursal-sided fraying and possibly a minimal bursal-sided partial-thickness tear at the level of the middle 3rdof the humeral head (coronal T2 fat-sat image 10). No atrophy or fatty infiltration of the supraspinatus muscle is present. Infraspinatus: The infraspinatus tendon is intact. No atrophy or fatty infiltration of the infraspinatus muscle is present. Teres minor: The teres minor tendon is intact. No atrophy or fatty infiltration of the teres minor muscle is present. Subscapularis: The subscapularis tendon is intact. No atrophy or fatty infiltration of the subscapularis muscle is present. Long head biceps tendon: The long of the biceps tendon is intactand normally positioned within the bicipital groove. Glenoid labrum: No labral tear is identified, although MR arthrography is more sensitive if there is specific clinicalconcern. Cartilage: The chondral surfaces of the glenohumeral joint are preserved. Joint space: No joint effusion or definite intra-articular body is identified. Acromioclavicular joint: Minimal acromioclavicular arthrosis is present without sizable inferiorly-directed osteophytes. Mildlateral downsloping of the acromion exerts mild mass effect on theunderlying supraspinatous tendon. Bone marrow: The bone marrow signal is unremarkable. Subacromial-subdeltoid bursa: Trace subacromial-subdeltoid bursal fluid is identified. IMPRESSION: PAGE 1 Signed Report (CONTINUED) 1. Mild distal supraspinatus tendinosis with mild bursal-sided fraying and a possible minimal bursal-sided partial-thickness tear. Findings similar to 2012. 2. Minimal acromioclavicular arthrosis. 3. Mild lateral downsloping acromion. Please correlate for subacromial impingement syndrome. REPORT SIGNED IN OTHER VENDOR SYSTEM 01/30/2016 Reported By: Mesfin Whitten MD CC: Transcribed Date/Time: 01/30/2016 (1223) Project Lead: Printed Date/Time: 01/22/2019 (0932) PAGE 2 Signed Report Eduin Cerrato MD IMG MRI ORDERABLES Final Result documented in this encounter Visit Diagnoses Not on filedocumented in this encounter Care Teams Data Migration Consultant Relationship Specialty Start Date End Date Mary Montana MD [address] [place] [address] PCP - General 10/15/11 03/24/19 Unknown, Provider, [address] [place] [address] PCP - General 03/25/19 9 Mary Montana MD [address] [place] [address] PCP - General 04/05/19 10/27/22 Mary Montana MD [address] [place] [phone] 03/25/19 documented as of this encounter
--- OUTSIDE RECORDS SUMMARY | 2024-09-15 00:30 | XMS_ITS | Encounter Summary ---
Author Organization [facility] Address [address] [place] [address] Care Team Providers Care Airline Security Representative Name Role Phone Mary Montana MD Primary Care Provider [phone] Unknown, Provider Primary Care Provider Unava ilable Mary Montana MD Unavailable Mary Montana MD Primary Care Provider [phone] Encounter Details Date Type Department Care Team (Late st Contact Info) Description 07/17/2018 Historical Results Only [facility] - [facility] [place] Radiology Results [address] [place] [address] Carley Del Rosario, [address] [id number] Social History Tobacco Use Types Packs/Day Years [...] Associated Diagnosis Comments US PELVIS TRANSVAGINAL COMPLETE 07/17/2018 13:11 EST documented in this encounter Results * US PELVIS TRANSVAGINAL (07/17/2018 13:11 EST) Anatomical Region Laterality Modality Pelvis Other 07/17/2018 13:1 1 EST Narrative 07/17/2018 13:14 EST ? AN ADDENDUM IS INCLUDED ON THIS REPORT ? ADDENDUM ? ADDENDUM: ? TECHNIQUE: ??Transvaginal pelvic ultrasound. Color and spectral ? Doppler imaging performed with assessment of arterial and venous ? spectral waveforms along with color imaging of the ovaries. ? ADDENDUM SIGNED IN OTHER VENDOR SYSTEM 10/09/2018 ?Reported By: Gary Marquis MD ?Transcribed: 10/09/2018 (5586) .MARYLUR ?REPORT ? EXAM: ULTRASOUND/TRANSVAGINAL - GRIEF COUNSELOR W/ DO EX. D/ (1306) ? CLINICAL INFORMATION: ? R10.2 RLQ TENDERNESS ? N85.2 ENGLARGED UTERUS ON EXAM ? HX FIBROIDS ? INDICATION: R10.2 RLQ TENDERNESS, N85.2 ENGLARGED UTERUS ON EXAM, HX ? FIBROIDS RLQ TENDERNESS, HX FIBROIDS, ENLARGED UTERUS ? TECHNIQUE: ?Transvaginal pelvic ultrasound. Arterial and venous ? spectral waveforms along with color imaging of the ovaries. ? COMPARISON: 08/05/2013. ? FINDINGS: ?The uterus measures 7.7 x 4.2 x 5.3 centimeters. The ? endometrium measures 7.5 mm in thickness. The uterine parenchyma is ? unremarkable. ??No free fluid is seen in the cul-de-sac. The right ? ovary measures 3.0 x 1.3 x 3.1 cm. ?The left ovary measures 2.6 x ? 1.7 x 2.5 cm. ? The right ovarian parenchyma is normal in ? appearance. The left ovary contains a 16 mm follicle and several ? adjacent smaller sub-5 mm follicles. Symmetric ovarian blood flow is ? noted. ? IMPRESSION: ? 1. ??No uterine or ovarian abnormality detected. No clear abnormal ? uterine enlargement or fibroid lesions within the uterus detected. ? REPORT SIGNED IN OTHER VENDOR SYSTEM 07/17/2018 ?Reported By: Gary Marquis MD ? CC: ? Transcribed Date/Time: 07/17/2018 (1314) ? Bacteriology Professor: ? Printed Date/Time: 01/31/2019 (1201) ? PAGE 1 ? Signed Report ? Procedure Note Gary Marquis MD - 06/17/2019 AN ADDENDUM IS INCLUDED ON THIS REPORT ADDENDUM ADDENDUM: TECHNIQUE: Transvaginal pelvic ultrasound. Color and spectral Doppler imaging performed with assessment of arterial and venous spectral waveforms along with color imaging of the ovaries. ADDENDUM SIGNED IN OTHER VENDOR SYSTEM 10/09/2018 Reported By: Gary Marquis MD Transcribed: 10/09/2018 (9288) REPORT EXAM: ULTRASOUND/TRANSVAGINAL - GRIEF COUNSELOR W/ DO EX. D/ (1306) CLINICAL INFORMATION: R10.2 RLQ TENDERNESS N85.2 ENGLARGED UTERUS ON EXAM HX FIBROIDS INDICATION: R10.2 RLQ TENDERNESS, N85.2 ENGLARGED UTERUS ON EXAM,HX FIBROIDS RLQ TENDERNESS, HX FIBROIDS, ENLARGED UTERUS TECHNIQUE: Transvaginal pelvic ultrasound. Arterial and venous spectral waveforms along with color imaging of the ovaries. COMPARISON: 08/05/2013. FINDINGS: The uterus measures 7.7 x 4.2 x 5.3 centimeters. The endometrium measures 7.5 mm in thickness. The uterine parenchyma is unremarkable. No free fluid is seen in the cul-de-sac. The right ovary measures 3.0 x 1.3 x 3.1 cm. The left ovary measures 2.6 x 1.7 x 2.5 cm. The right ovarian parenchyma is normal in appearance. The left ovary contains a 16 mm follicle and several adjacent smaller sub-5 mm follicles. Symmetric ovarian blood flowis noted. IMPRESSION: 1. No uterine or ovarian abnormality detected. No clear abnormal uterine enlargement or fibroid lesions within the uterus detected. REPORT SIGNED IN OTHER VENDOR SYSTEM 07/17/2018 Reported By: Gary Marquis MD CC: Transcribed Date/Time: 07/17/2018 (6024) Bacteriology Professor: Printed Date/Time: 01/31/2019 (6331) PAGE 1 Signed Report us Carley Del Rosario CN IMG US OB ORDERABLES Fin al Result documented in this encounter Visit Diagnoses Not on filedocumented in this encounter Care Teams Airline Security Representative Relationship Specialty Start Date End Date Mary Montana MD [address] [place] [address] PCP - General 10/15/11 03/24/19 Unknown, Provider, [address] [place] [phone] PCP - General 03/25/19 9 Mary Montana MD [address] [place] [phone] PCP - General 04/05/19 10/27/22 Mary Montana MD [address] [place] [phone] 03/25/19 documented as of this encounter
--- OUTSIDE RECORDS SUMMARY | 2024-09-15 00:30 | XMS_ITS | Encounter Summary ---
Author Organization [facility] Address [address] [place] [address] Care Team Providers Care Block Out Machine Operator Name Role Phone Mary Montana MD Unavailable Mary Montana MD Primary Care Provider [phone] Reason for Visit * Reason Onset Date Comments Results 09/02/2019 Encounter Details Date Type Department Care Team (Late st Contact Info) Description 09/02/2019 Telephone [facility] - [facility] [address], [place] [id number] Fany Walters RN Results Social History Tobacco [...] Telephone Encounter - Stephanie Quinones RN - 09/02/2019 8981 EST Jonathon called back to confirm the plan. She will go to [facility] for her E2 blood draw on 09/07. Order faxed STAT today. * Telephone Encounter - Fany Walters RN - 09/02/2019 1349 EST Images from the original note were not included. Telephoned patient to review results of baseline labs and ultrasound, and to confirm medication plan Component Latest Ref Rng & Units 09/02/2019 Estradiol See Note pg/mL 19 Progesterone See Table ng/mL <0.2 Advised patient to decrease lupron to 5 units starting on 1/25 am and begin GN 10/09 that same evening. Next step is E2 on 09/07. Order in place at [facility]. Discussed with Dr Dickinson. Asked pt to call back to confirm receipt of message and understanding of plan. documented in this encounter Plan of Treatment Not on file documented as of this encounter Visit Diagnoses Diagnosis Encounter for assisted reproductive fertility cycle- Primary Encounter for assisted reproductive fertility procedure cycle documented in this encounter Care Teams Block Out Machine Operator Relationship Specialty Start Date End Date Mary Montana MD [address] [place] [address] PCP - General 04/05/19 10/27/22 Mary Montana MD [address] [place] [address] 03/25/19 documented as of this encounter
--- OUTSIDE RECORDS SUMMARY | 2024-09-15 00:30 | XMS_ITS | Encounter Summary ---
Author Organization [facility] Address [address] [place] [address] Care Team Providers Care Broom Man Name Role Phone Mary Montana MD Unavailable Mary Montana MD Primary Care Provider [phone] Reason for Visit * Reason Comments Patient Education Encounter Details Date Type Department Care Team (Late st Contact Info) Description 08/17/2019 10:00 EST Nurse Only [facility] - [facility] [address] [place] [address] Nurse, CHASE Winslow Injection education, encounter for (Primary Dx) Social History Tobacco Use Types [...] Progress Notes * Miracle Quinones RN - 08/17/2019 1000 EST IVF injection teaching note: Medications reviewed: OCPs (active pills only) Lupron Gonal-F vial Menopur HCG Progesterone in oil Pt demonstrated safe and effective preparation and administration techniques with all injectable medications listed above. Discussed suppression phase and stimulation phase of cycle in terms of medication use. Pt aware that instructions will be given on when to start stimulation medication and decrease lupron based on baseline labs and ultrasound. Informed pt that timeline of cycle may depend in part upon response during stimulation phase. Datesof appointments and medication dosing may change. Consent forms reviewed, signatures witnessed, and consents collected. Pt verbalized understanding of IVF cycle plan and medication administration techniques. All questions were answered at this time. MIRACLE QUINONES RN documented in this encounter Plan of Treatment Not on file documented as of this encounter Visit Diagnoses Diagnosis Injection education, encounter for- Primary Other specified counseling documented in this encounter Care Teams Broom Man Relationship Specialty Start Date End Date Mary Montana MD [address] [place] [phone] PCP - General 04/05/19 10/27/22 Mary Montana MD [address] [place] [phone] 03/25/19 documented as of this encounter
--- OUTSIDE RECORDS SUMMARY | 2024-09-15 00:30 | XMS_ITS | Encounter Summary ---
Author Organization [facility] Address [address] [place] [address] Care Team Providers Care Mechanic/Welder Name Role Phone Mary Montana MD Primary Care Provider [phone] Unknown, Provider Primary Care Provider Unava ilable Mary Montana MD Unavailable Mary Montana MD Primary Care Provider [phone] Encounter Details Date Type Department Care Team (Late st Contact Info) Description 01/02/2016 Historical Results Only [facility] - [facility] [place] Radiology Results [address] [place], [place] [phone] Eduin Cerrato MD [address] [facility] [address] [place] [address] Social History Tobacco Use Types [...] Name Priority Date/Time Associated Diagnosis Comments XR SHOULDER RIGHT 2 OR MORE VIEWS 01/02/2016 14:45 EDT documented in this encounter Results * XR SHOULDER RIGHT 2 OR MORE VIEWS (01/02/2016 14:45 EDT) Anatomical Region Laterality Modality Right Other 01/02/2016 14:4 5 EDT Narrative 01/02/2016 16:24 EDT ? EXAM: RADIOLOGY/SHOULDER RT 2+VIEWS ? EX. D/ (1153) ? CLINICAL INFORMATION: ? RIGHT CHRONIC SHOULDER PAIN XRAY DONE AT [facility] ? -M25.511 ? INDICATION: Right chronic shoulder pain x-ray done at [facility]: ? -M25.511. ? COMPARISON: None. ? TECHNIQUE: 4 views of the right shoulder were obtained. ? FINDINGS: There is a type I acromial morphology. There is minimal ? arthrosis of the acromioclavicular joint. The humeroacromial space is ? unremarkable. No fracture is seen. Bone density is normal. The ? glenohumeral joint is unremarkable. ? IMPRESSION: ? 1. 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 ? 2. Type I acromial morphology. ? REPORT SIGNED IN OTHER VENDOR SYSTEM 01/02/2016 ?Reported By: Nikhil Yarbrough MD ? CC: ? Transcribed Date/Time: 01/02/2016 (1624) ? Pulling Unit Operator: ? Printed Date/Time: 01/22/2019 (0459) ? PAGE 1 ? Signed Report ? Procedure Note Nikhil Yarbrough MD - 06/16/2019 EXAM: RADIOLOGY/SHOULDER RT 2+VIEWS EX. D/ (1153) CLINICAL INFORMATION: RIGHT CHRONIC SHOULDER PAIN XRAY DONE AT [facility] -M25.511 INDICATION: Right chronic shoulder pain x-ray done at [facility] A: -M25.511. COMPARISON: None. TECHNIQUE: 4 views of the right shoulder were obtained. FINDINGS: There is a type I acromial morphology. There is minimal arthrosis of the acromioclavicular joint. The humeroacromial spaceis unremarkable. No fracture is seen. Bone density is normal. The glenohumeral joint is unremarkable. IMPRESSION: 1. 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 2. Type I acromial morphology. REPORT SIGNED IN OTHER VENDOR SYSTEM 01/02/2016 Reported By: Nikhil Yarbrough MD CC: Transcribed Date/Time: 01/02/2016 (1624) Pulling Unit Operator: Printed Date/Time: 01/22/2019 (4901) PAGE 1 Signed Report Eduin Cerrato MD IMG DIAGNOSTIC IMAGING O RDERABLES Final Result documented in this encounter Visit Diagnoses Not on filedocumented in this encounter Care Teams Mechanic/Welder Relationship Specialty Start Date End Date Mary Montana MD [address] [place] [phone] PCP - General 10/15/11 03/24/19 Unknown, Provider, [address] [place] [address] PCP - General 03/25/19 9 Mary Montana MD [address] [place] [address] PCP - General 04/05/19 10/27/22 Mary Montana MD [address] [place] [phone] 03/25/19 documented as of this encounter
--- OUTSIDE RECORDS SUMMARY | 2024-09-15 00:30 | XMS_ITS | Encounter Summary ---
Author Organization [facility] Address [address] [place] [address] Care Team Providers Care National Accounts Sales Name Role Phone Mary Montana MD Primary Care Provider [phone] Unknown, Provider Primary Care Provider Unava Mary Madison MD Unavailable Mary Montana MD Primary Care Provider [phone] Encounter Details Date Type Department Care Team (Late st Contact Info) Description 12/24/[address] [facility] [place] - [facility] [place] Radiology Results [address] [place] [address] Laverne Crawford, PRECISION INSTRUMENT MAKER [address] [place] [address] [place] [address] Social History Tobacco Use Types Packs/Day Years [...] Procedure Name Priority Date/Time Associated Diagnosis Comments NM BONE WHOLE BODY SINGLE ZONE WITH SPECT/CT 12/24/2016 19:53 EDT XR CERVICAL SPINE 6 OR MORE VIEWS 12/24/2016 13:02 EDT documented in this encounter Results * NM BONE WHOLE BODY WITH SPECT (12/24/2016 19:53 EDT) Anatomical Region Laterality Modality Body Other 12/24/2016 19:5 3 EDT Narrative 12/24/2016 19:56 EDT ? EXAM: NUCLEAR MEDICINE/BONE SPECT WITH WH EX. D/ (1426) ? CLINICAL INFORMATION: ? M54.2 ? 100% RIGHT SIDED NECK PAIN ? BONE SPECT WITH WHOLE BODY ? Signs and Symptoms/Comments: ??M54.2 100% RIGHT SIDED NECK PAIN. ? 31-year-old female with 100% right-sided neck pain. ? Comparison: Cervical spine radiographs on 12/24/2016. CT neck on ? 09/10/2013. ? Technique: After the intravenous administration of 21.0 mCi Tc-99m ? MDP, whole-body planar images were performed, followed by SPECT CT ? images of the cervical spine. ? FINDINGS: ? Whole-body planar images: Mild degenerative uptake is present in the ? shoulders, sternoclavicular joints, and knees. There is no convincing ? evidence of osseous metastatic disease. No abnormal soft tissue ? uptake is identified. ? SPECT CT images: ? Mild multilevel cervical spondylolisthesis is better appreciated on ? the accompanying radiographs. Increased radiotracer uptake associated ? with degenerative disease is present as follows: ? Atlantodens uptake: Normal. ? Discogenic uptake: ? C2-C3: Normal. ? C3-C4: Normal. ? C4-C5: Normal. ? C5-C6: Normal. ? C6-C7: Normal. ? C7-T1: Normal. ? Facet uptake: ? Atlantooccipital: Minimal left. ? C1-C2: Normal. ? C2-C3: Normal. ? C3-C4: Normal. ? C4-C5: Minimal left. ? C5-C6: Minimal left. ? C6-C7: Minimal left. ? C7-T1: Normal. ? Mild uptake along the proximal right humerus greater tuberosity ? without an associated osseous lesion on the accompanying low-dose CT ? likely reflects rotator cuff inflammatory changes (axial SPECT fusion ? image 41). ? Low dose attenuation correction CT: Bilateral breast implants. Subtle ? clustered groundglass opacities versus nodules in the posterior ? PAGE 1 ? Signed Report ? (CONTINUED) ? aspect of the right upper lobe are nonspecific (low-dose axial CT ? bone image 180). ? IMPRESSION: ? 1. ??No significantly elevated discogenic or facet uptake in the ? cervical spine. ? 2. ??Mild degenerative uptake in the shoulders, including a focus of ? mild uptake along the right greater tuberosity raising the ? possibility of rotator cuff inflammatory changes. ? 3. ??Subtle clustered groundglass opacities versus nodules in the ? right upper lobe. Likely infectious or inflammatory. To be cautious, ? follow-up CT chest recommended in 3 months to document resolution. ? REPORT SIGNED IN OTHER VENDOR SYSTEM 12/24/2016 ?Reported By: Mesfin Whitten MD ? CC: ? Transcribed Date/Time: 12/24/2016 (1955) ? Salon Manager: [email or web address] ? Printed Date/Time: 01/25/2019 (2530) ? PAGE 2 ? Signed Report ? Procedure Note Mesfin Whitten MD - 06/16/2019 EXAM: NUCLEAR MEDICINE/BONE SPECT WITH WH EX. D/ (1426) CLINICAL INFORMATION: M54.2 100% RIGHT SIDED NECK PAIN BONE SPECT WITH WHOLE BODY Signs and Symptoms/Comments: M54.2 100% RIGHT SIDED NECK PAIN. 31-year-old female with 100% right-sided neck pain. Comparison: Cervical spine radiographs on 12/24/2016. CT neck on 09/10/2013. Technique: After the intravenous administration of 21.0 mCi Tc-99m MDP, whole-body planar images were performed, followed by SPECT CT images of the cervical spine. FINDINGS: Whole-body planar images: Mild degenerative uptake is present inthe shoulders, sternoclavicular joints, and knees. There is noconvincing evidence of osseous metastatic disease. No abnormal soft tissue uptake is identified. SPECT CT images: Mild multilevel cervical spondylolisthesis is better appreciated on the accompanying radiographs. Increased radiotracer uptakeassociated with degenerative disease is present as follows: Atlantodens uptake: Normal. Discogenic uptake: C2-C3: Normal. C3-C4: Normal. C4-C5: Normal. C5-C6: Normal. C6-C7: Normal. C7-T1: Normal. Facet uptake: Atlantooccipital: Minimal left. C1-C2: Normal. C2-C3: Normal. C3-C4: Normal. C4-C5: Minimal left. C5-C6: Minimal left. C6-C7: Minimal left. C7-T1: Normal. Mild uptake along the proximal right humerus greater tuberosity without an associated osseous lesion on the accompanying low-doseCT likely reflects rotator cuff inflammatory changes (axial SPECTfusion image 41). Low dose attenuation correction CT: Bilateral breast implants.Subtle clustered groundglass opacities versus nodules in the posterior PAGE 1 Signed Report (CONTINUED) aspect of the right upper lobe are nonspecific (low-dose axial CT bone image 180). IMPRESSION: 1. No significantly elevated discogenic or facet uptake in the cervical spine. 2. Mild degenerative uptake in the shoulders, including a focus of mild uptake along the right greater tuberosity raising the possibility of rotator cuff inflammatory changes. 3. Subtle clustered groundglass opacities versus nodules in the right upper lobe. Likely infectious or inflammatory. To becautious, follow-up CT chest recommended in 3 months to document resolution. REPORT SIGNED IN OTHER VENDOR SYSTEM 12/24/2016 Reported By: Mesfin Whitten MD CC: Transcribed Date/Time: 12/24/2016 (1955) Salon Manager: Printed Date/Time: 01/25/2019 (5921) PAGE 2 Signed Report Laverne Crawford NP IMG NM ORDERABLES Final Resul t * XR CERVICAL SPINE 6 OR MORE VIEWS (12/24/2016 13:02 EDT) Anatomical Region Laterality Modality Other 12/24/2016 13:0 2 EDT Narrative 12/24/2016 13:05 EDT ? EXAM: RADIOLOGY/CERVICAL SPINE + FLEX ?? E EX. D/ (1109) ? CLINICAL INFORMATION: ? M54.2 ? 100% RIGHT SIDED NECK PAIN ? CERVICAL SPINE + FLEX ?? EXT 12/24/2016 11:09 AM ? Signs and Symptoms: NECK PAIN M54.2 ? 100% RIGHT SIDED NECK PAIN ? Comparisons: 05/04/2012 MR cervical spine ? Findings: ? AP, odontoid, neutral lateral, lateral flexion, and lateral extension ? views of the cervical spine were performed. ? All 7 cervical vertebral bodies are well seen. Vertebral body heights ? are preserved. There is straightening of the normal cervical ? lordosis. No cervical fracture or destructive lesion is identified. ? There is minimal anterolisthesis of C3 on C4 on the neutral lateral ? radiographs. No additional spondylolisthesis is seen. There is no ? facet arthropathy, the posterior elements are normal appearing. The ? paraspinal soft tissues are unremarkable. The lung apices are clear. ? Flexion-extension views show mild increase in the degree of ? anterolisthesis at C3-4 with flexion with normal alignment in ? extension. There is also minimal retrolisthesis of C5 on C6 in ? extension which is not evident on the flexed or neutral lateral ? radiographs. ? Impression: ? 1. ??The cervical lordosis is straightened. ? 2. ??There is minimal increase anterolisthesis of C3-4 with flexion ? which is not present with the patient in neutral position or in ? extension. ? 3. ??There is minimal retrolisthesis of C5 on C6 in extension which is ? not present on flexed or neutral lateral radiographs. ? REPORT SIGNED IN OTHER VENDOR SYSTEM 12/24/2016 ?Reported By: Juan José Armas MD ? CC: ? Transcribed Date/Time: 12/24/2016 (1305) ? Salon Manager: ? Printed Date/Time: 01/25/2019 (1816) ? PAGE 1 ? Signed Report ? Procedure Note Juan José Armas MD - 06/16/2019 EXAM: RADIOLOGY/CERVICAL SPINE + FLEX E EX. D/ (1109) CLINICAL INFORMATION: M54.2 100% RIGHT SIDED NECK PAIN CERVICAL SPINE + FLEX EXT 12/24/2016 11:09 AM Signs and Symptoms: NECK PAIN M54.2 100% RIGHT SIDED NECK PAIN Comparisons: 05/04/2012 MR cervical spine Findings: AP, odontoid, neutral lateral, lateral flexion, and lateralextension views of the cervical spine were performed. All 7 cervical vertebral bodies are well seen. Vertebral bodyheights are preserved. There is straightening of the normal cervical lordosis. No cervical fracture or destructive lesion is identified. There is minimal anterolisthesis of C3 on C4 on the neutral lateral radiographs. No additional spondylolisthesis is seen. There is no facet arthropathy, the posterior elements are normal appearing. The paraspinal soft tissues are unremarkable. The lung apices areclear. Flexion-extension views show mild increase in the degree of anterolisthesis at C3-4 with flexion with normal alignment in extension. There is also minimal retrolisthesis of C5 on C6 in extension which is not evident on the flexed or neutral lateral radiographs. Impression: 1. The cervical lordosis is straightened. 2. There is minimal increase anterolisthesis of C3-4 with flexion which is not present with the patient in neutral position or in extension. 3. There is minimal retrolisthesis of C5 on C6 in extension whichis not present on flexed or neutral lateral radiographs. REPORT SIGNED IN OTHER VENDOR SYSTEM 12/24/2016 Reported By: Juan José Armas MD CC: Transcribed Date/Time: 12/24/2016 (6883) Salon Manager: Printed Date/Time: 01/25/2019 (5936) PAGE 1 Signed Report Laverne Crawford NP IMG DIAGNOSTIC IMAGING ORDERA BLES Final Result documented in this encounter Visit Diagnoses Not on filedocumented in this encounter Care Teams National Accounts Sales Relationship Specialty Start Date End Date Mary Montana MD [address] [place] [phone] PCP - General 10/15/11 03/24/19 Unknown, Provider, [address] [place] [address] PCP - General 03/25/19 9 Mary Montana MD [address] [place] [phone] PCP - General 04/05/19 10/27/22 Mary Montana MD [address] [place] [phone] 03/25/19 documented as of this encounter
--- OUTSIDE RECORDS SUMMARY | 2024-09-15 00:30 | XMS_ITS | Encounter Summary ---
Author Organization [facility] Address [address] [place] [address] Care Team Providers Care Flash Ranging Crewmember Name Role Phone Mary Montana MD Primary Care Provider [phone] Unknown, Provider Primary Care Provider Unava ilable Mary Montana MD Unavailable Mary Montana MD Primary Care Provider [phone] Encounter Details Date Type Department Care Team (Late st Contact Info) Description 01/29/2016 Historical Results Only [facility] [place] [facility] [place] [address] [place], [place] [phone] Eduin Cerrato MD [address] [facility] [address] [place] [address] Social History Tobacco Use Types Packs/Day [...] on filedocumented in this encounter Care Teams Flash Ranging Crewmember Relationship Specialty Start Date End Date Mary Montana MD [address] [place] [phone] PCP - General 10/15/11 03/24/19 Unknown, Provider, [address] [place] [address] PCP - General 03/25/19 9 Mary Montana MD [address] [place] [phone] PCP - General 04/05/19 10/27/22 Mary Montana MD [address] [place] [phone] 03/25/19 documented as of this encounter
--- OUTSIDE RECORDS SUMMARY | 2024-09-15 00:30 | XMS_ITS | Encounter Summary ---
Author Organization [facility] Address [address] [place] [address] Care Team Providers Care Network Contractor Name Role Phone Mary Montana MD Unavailable Mary Montana MD Primary Care Provider [phone] Reason for Visit * Reason Onset Date Comments Coordination Of Care 08/13/2019 Encounter Details Date Type Department Care Team (Late st Contact Info) Description 08/13/2019 Telephone [facility] Inf[facility] - [facility] [address] [place] [address] Stephanie Quinones, RN [address] [place] [address] Coordination Of Care Social History Tobacco Use [...] Telephone Encounter - Stephanie Quinones RN - 08/13/2019 0911 EST Jonathon called to discuss her IVF medications. Wondering if there are any alternatives/generics, paula was quoted over $800 out of pocket for menopur (by her insurance company). She is awaiting a call from [facility] with her total cost for the prescriptions we ordered. I reviewed that we could order a different form of gonal-F (pen vs vial) or substitute follistim. Could use novarel or generic hCG instead of pregnyl. No sub for menopur or lupron. Pt verbalized understanding. She will call back after she speaks to [facility] with any necessary changes. documented in this encounter Plan of Treatment Not on file documented as of this encounter Visit Diagnoses Not on filedocumented in this encounter Care Teams Network Contractor Relationship Specialty Start Date End Date Mary Montana MD [address] [place] [phone] PCP - General 04/05/19 10/27/22 Mary Montana MD [address] [place] [phone] 03/25/19 documented as of this encounter
--- OUTSIDE RECORDS SUMMARY | 2024-09-15 00:30 | XMS_ITS | Encounter Summary ---
Author Organization [facility] Address [address] [place] [address] Care Team Providers Care Extension Service Agent Name Role Phone Mary Montana MD Primary Care Provider [phone] Encounter Details Date Type Department Care Team (Latest Contact Info) Description 07/17/2018 10:42 EST - 07/17/2018 23:59 EST Hospital Encounter [facility] [address] [place] [address] Unknown, Provider, Discharge Disposition: Home or Self [...] Code Departure Means Destination Home or Self Intermediate documented in this encounter Plan of Treatment Not on file documented as of this encounter Visit Diagnoses Not on filedocumented in this encounter Care Teams Extension Service Agent Relationship Specialty Start Date End Date Mary Montana MD [address] [place] [phone] PCP - General 10/15/11 03/24/19 documented as of this encounter
--- OUTSIDE RECORDS SUMMARY | 2024-09-15 00:30 | XMS_ITS | Encounter Summary ---
Author Organization [facility] Address [address] [place] [address] Care Team Providers Care Recreation Center Director Name Role Phone Mary Montana MD Primary Care Provider [phone] Unknown, Provider Primary Care Provider Unava ilable Mary Montana MD Unavailable Mary Montana MD Primary Care Provider [phone] Encounter Details Date Type Department Care Team (Late st Contact Info) Description 12/12/2017 Historical Results Only [facility] - [facility] Lab - Main [address] [phone] Cassidy Duckworth PA [address] [place] [address] Social History Tobacco Use Types [...] Procedure Name Priority Date/Time Associated Diagnosis Comments FREE T3 POC - CV Routine 12/12/2017 13 :56 EDT documented in this encounter Results * FREE T3 POC - [facility] (12/12/2017 13:56 EDT) T3,FREE [facility] 3.09 2.40 - 4.00 PG/ML 12/15/2017 13:56 EDT [facility] 12/12/2017 13:5 6 EDT 12/12/2017 13:56 EDT us Cassidy MARTINS CHEMISTRY & BLOOD GAS ORDERAB LES Final Result [facility] documented in this encounter Visit Diagnoses Not on filedocumented in this encounter Care Teams Recreation Center Director Relationship Specialty Start Date End Date Mary Montana MD [address] [place] [phone] PCP - General 10/15/11 03/24/19 Unknown, Provider, [address] [place] [address] PCP - General 03/25/19 9 Mary Montana MD [address] [place] [phone] PCP - General 04/05/19 10/27/22 Mary Montana MD [address] [place] [phone] 03/25/19 documented as of this encounter
--- OUTSIDE RECORDS SUMMARY | 2024-09-15 00:30 | XMS_ITS | Encounter Summary ---
Author Organization [facility] Address [address] [place] [address] Care Team Providers Care Cotton Stomper Name Role Phone Mary Montana MD Unavailable Mary Montana MD Primary Care Provider [phone] Reason for Visit * Reason Onset Date Comments Follow-up 07/21/2019 Encounter Details Date Type Department Care Team (Late st Contact Info) Description 07/21/2019 Telephone [facility] Reproductive Medicine & Infertility Center - [facility] [address] [place] [address] Stephanie Quinones, TANIA [address] [place] [address] Follow-up Social History Tobacco Use Types Packs/Day Years [...] Refills Last Filled Start Date End Date norgestimate-ethin yl estradiol (ORTHO-CYCLEN, 28,) 0.25-35 mg-mcg per tablet Take 1 Tab by mouth daily. Take active tabs continuously. Discard inactive tabs. 56 Tab 07/21/2019 0 documented in this encounter Miscellaneous Notes * Telephone Encounter - Stephanie Quinones RN - 07/21/2019 9340 EST Jonathon called to discuss next steps for IVF. Reviewed that she is scheduled for IVF in November, and egg retrieval is expected to take place sometime during the week of 11/07, with ET 3-5 days later. Monitoring will start ~10/28. Emailed tentative calendar. Scheduled teaching appt on 09/27 at 1000. Pt aware that she needs to start OCPs with September menses, which she is expecting 09/25. documented in this encounter Plan of Treatment Not on file documented as of this encounter Visit Diagnoses Not on filedocumented in this encounter Care Teams Cotton Stomper Relationship Specialty Start Date End Date Mary Montana MD [address] [place] [phone] PCP - General 04/05/19 10/27/22 Mary Montana MD [address] [place] [phone] 03/25/19 documented as of this encounter
--- OUTSIDE RECORDS SUMMARY | 2024-09-15 00:30 | XMS_ITS | Encounter Summary ---
Author Organization [facility] Address [address] [place] [address] Care Team Providers Care Lithograph Printer Name Role Phone Mary Montana MD Unavailable Mary Montana MD Primary Care Provider [phone] Encounter Details Date Type Department Care Team (Late st Contact Info) Description 04/20/2019 Historical Results Only [facility] - [facility] [place] Lab - [address] [address] Brynn Victoria MD [address] [facility], [facility] [address] [place] [address] Social History Tobacco Use Types [...] Priority Date/Time Associated Diagnosis Comments FSH Routine 04/20/2019 8:50 EDT documented in this encounter Results * FSH (04/20/2019 8:50 EDT) FSH - CV 4.0 () mIU/ml 04/22/2019 21:11 EDT [facility] Comment: Follicular: ??2.5-10.2 Mid-Cycle Peak: ??3.4-33.4 Luteal: ??1.5-9.1 Postmenopausal: ??23.0-116.3 Test performed or referred by The [address] [address] 04/20/2019 8:50 EDT 04/20/2019 8:50 EDT Narrative [facility] - 04/22/2019 21:11 EDT Does PT Have a Latex Allergy? NO Brynn Victoria MD CHEMISTRY & BLOOD GAS ORDER BETTINA Final Result [facility] documented in this encounter Visit Diagnoses Not on filedocumented in this encounter Care Teams Lithograph Printer Relationship Specialty Start Date End Date Mary Montana MD [address] [place] [phone] PCP - General 04/05/19 10/27/22 Mary Montana MD [address] [place] [phone] 03/25/19 documented as of this encounter
--- OUTSIDE RECORDS SUMMARY | 2024-09-15 00:30 | XMS_ITS | Encounter Summary ---
Author Organization [facility] Address [address] [place] [address] Care Team Providers Care Supervisor Quality Control Name Role Phone Mary Montana MD Unavailable Mary Montana MD Primary Care Provider [phone] Encounter Details Date Type Department Care Team (Late st Contact Info) Description 09/07/[address] [facility] Reproductive Medicine & Infertility Center - [facility] [address] [place], [place] [phone] Gary Lion MD [address] [place] [phone] Social History Tobacco Use Types Packs/Day [...] EST) Estradiol 358 See Note pg/mL 09/07/2019 19:42 EST [facility] Comment: NOTE: FEMALE REFERENCE RANGES: [...] drug. Test performed or referred by The [address] [address] 09/07/2019 7:43 EST 09/07/2019 7:44 EST Narrative [facility] - 09/07/2019 19:42 EST Does PT Have a Latex Allergy? NO us Gary Lion MD CHEMISTRY & BLOOD GAS ORDERA BLES Final Result [facility] documented in this encounter Visit Diagnoses Not on filedocumented in this encounter Care Teams Supervisor Quality Control Relationship Specialty Start Date End Date Mary Montana MD [address] [place] [phone] PCP - General 04/05/19 10/27/22 Mary Montana MD [address] [place] [address] 03/25/19 documented as of this encounter
--- OUTSIDE RECORDS SUMMARY | 2024-09-15 00:30 | XMS_ITS | Encounter Summary ---
Author Organization [facility] Address [address] [place] [address] Care Team Providers Care Environmental Protection Inspector Name Role Phone Mary Montana MD Unavailable Mary Montana MD Primary Care Provider [phone] Encounter Details Date Type Department Care Team (Late st Contact Info) Description 04/20/2019 Historical Results Only [facility] - [facility] [place] - [address] [address] Brynn Victoria MD [address] [facility] [address] [place] [address] Social History Tobacco Use Types [...] Procedure Name Priority Date/Time Associated Diagnosis Comments MEASLES IGG AB Routine 04/20/2019 8:50 EDT PROGESTERONE Routine 04/20/2019 8:50 EDT RUBELLA IGG ANTIBODY Routine 04/20/2019 8:50 EDT VARICELLA IGG ANTIBODY Routine 04/20/2019 8:50 EDT TSH Routine 04/20/2019 8:50 EDT documented in this encounter Results * TSH (04/20/2019 8:50 EDT) [facility] THYROID STIM [facility] 1.23 0.46 - 4.68 uIU/ml 04/20/2019 10:36 EDT [facility] Comment: The results of this assay can be falsely lowered due to the consumption of Biotin. 04/20/2019 8:50 EDT 04/20/2019 8:50 EDT [facility] - 04/20/2019 10:40 EDT Does PT Have a Latex Allergy? NO us Brynn Victoria MD CHEMISTRY & BLOOD GAS ORDER BETTINA Final Result Performing Organization Address [facility] Co de Phone Number [facility] * RUBELLA IGG ANTIBODY (04/20/2019 8:50 EDT) [facility] RU[facility]A [facility]TIBODY [facility] Positive 04/20/2019 10:40 EDT [facility] Comment: Expected value: Positive The presence of Rubella IgG suggest immunity against rubella 04/20/2019 8:50 EDT 04/20/2019 8:50 EDT [facility] - 04/20/2019 10:40 EDT Does PT Have a Latex Allergy? NO us Brynn Victoria MD CHEMISTRY & BLOOD GAS ORDER BETTINA Final Result [facility] * VARICELLA IGG ANTIBODY (04/20/2019 8:50 EDT) [facility] Varicella IgG Ab Positive Negative 04/21/2019 22:45 EDT [facility] Comment:Presumed immune to V aricella infection. 04/20/2019 8:50 EDT 04/20/2019 8:50 EDT [facility] - 04/21/2019 22:45 EDT Does PT Have a Latex Allergy? NO us Brynn Victoria MD IMMUNOLOGY AND SEROLOGY ORD ERABLES Final Result [facility] * MEASLES IGG AB (04/20/2019 8:50 EDT) RUBEOLA IGG ANTIBODY - [facility] Positive Negative 04/21/2019 22:45 EDT [facility] Comment:Presumed immune to M easles infection. 04/20/2019 8:50 EDT 04/20/2019 8:50 EDT [facility] - 04/21/2019 22:45 EDT Does PT Have a Latex Allergy? NO Brynn Victoria MD IMMUNOLOGY AND SEROLOGY ORD ERABLES Final Result [facility] * PROGESTERONE (04/20/2019 8:50 EDT) Progesterone 9.2 () ng/ml 04/22/2019 21:11 EDT [facility] Comment: NON- FEMALES: follicular phase: ??<0.2-1.4 ng/mL luteal phase: 3.3-25.6 ng/ml postmenopausal: ??<0.2-0.7 ng/mL ?? FEMALES: first trimester: 11.2-90.0 ng/ml second trimester: 25.6-89.4 ng/ml third trimester: 48.4-422.5 ng/ml ?? ECTOPIC PREGNANCIES: consult pathologist Test performed or referred by The [address] [address] 04/20/2019 8:50 EDT 04/20/2019 8:50 EDT [facility] - 04/22/2019 21:11 EDT Does PT Have a Latex Allergy? NO us Brynn Victoria MD CHEMISTRY & BLOOD GAS ORDER BETTINA Final Result [facility] documented in this encounter Visit Diagnoses Not on filedocumented in this encounter Care Teams Environmental Protection Inspector Relationship Specialty Start Date End Date Mary Montana MD [address] [place] [phone] PCP - General 04/05/19 10/27/22 Mary Montana MD [address] [place] [phone] 03/25/19 documented as of this encounter
--- OUTSIDE RECORDS SUMMARY | 2024-09-15 00:30 | XMS_ITS | Encounter Summary ---
Author Organization [facility] Address [address] [place] [address] Care Team Providers Care Senior Production Manager Name Role Phone Mary Montana MD Primary Care Provider [phone] Unknown, Provider Primary Care Provider Unava ilable Mary Montana MD Unavailable Mary Montana MD Primary Care Provider [phone] Encounter Details Date Type Department Care Team (Late st Contact Info) Description 12/12/[address] [facility] - [facility] Lab - Main [address] [phone] Cassidy Duckworth PA [address] [place] [address] Social History Tobacco Use Types [...] Name Priority Date/Time Associated Diagnosis Comments FREE T4 POC - [facility] Routine 12/12/2017 13 :56 EDT documented in this encounter Results * FREE T4 POC - [facility] (12/12/2017 13:56 EDT) FREE T4 - [facility] 0.77 0.58 - 1.64 NG/DL 12/15/2017 13:56 EDT [facility] 12/12/2017 13:5 6 EDT 12/12/2017 13:56 EDT Cassidy MARTINS CHEMISTRY & BLOOD GAS ORDERAB LES Final Result [facility] documented in this encounter Visit Diagnoses Not on filedocumented in this encounter Care Teams Senior Production Manager Relationship Specialty Start Date End Date Mary Montana MD [address] [place] [phone] PCP - General 10/15/11 03/24/19 Unknown, Provider, [address] [place] [address] PCP - General 03/25/19 9 Mary Montana MD [address] [place] [phone] PCP - General 04/05/19 10/27/22 Mary Montana MD [address] [place] [phone] 03/25/19 documented as of this encounter
--- OUTSIDE RECORDS SUMMARY | 2024-09-15 00:30 | XMS_ITS | Encounter Summary ---
Author Organization [facility] Address [address] [place] [address] Care Team Providers Care Test Inspection Engineer Name Role Phone Mary Montana MD Unavailable Mary Montana MD Primary Care Provider [phone] Reason for Visit * Reason Onset Date Comments Coordination Of Care 07/26/2019 Encounter Details Date Type Department Care Team ([facility] st Contact Info) Description 07/26/2019 Telephone [facility] Reproductive Medicine & Infertility Center - [facility] [address] [place], [place] [phone] Leanna Dickinson MD [address] [facility] [address] [place] [phone] Coordination Of Care Social History Tobacco Use [...] Refills Last Filled Start Date End Date progesterone in oil 50 mg/mL injection Inject 1 mL into the muscle daily. 2 Vial 3 08/12/2019 0 chorionic gonadotropin, human (PREGNYL) 10,000 unit injection Inject 1 mL into the skin when directed. 1 Each 08/12/2019 0 menotropins (MENOPUR) 75 unit solution for subcutaneous injection Injects 75 units into the skin daily. 15 Vial 08/12/2019 0 Follitropin Kervin (GONAL-F) 1,050 unit recon soln Inject 225 units into the skin daily. Decrease when directed. 3 Each 08/12/2019 0 leuprolide (LUPRON) 1 mg/0.2 mL kit Inject 10 units into the skin daily. Decrease as directed. 2 Each 08/12/2019 0 documented in this encounter Miscellaneous Notes * Addendum Note - Brynn Yates RN - 08/12/2019 1048 ESTAddended by: BRYNN YATES on: 08/12/2019 10:48 Modules accepted: Orders * Telephone Encounter - Brynn Yates RN - 08/12/2019 1039 EST Call from Jonathon requesting medications be ordered in anticipation of starting medications on 08/24. Medications ordered to [facility], call to Jonathon to advise her to expect call from them. She verbalized understanding of this and has no further questions. * Telephone Encounter - Stephanie Quinones RN - 07/26/2019 1440 EST Left message on Jonathon's identified VM asking her to call back to reschedule IVF teaching visit. Will start lupron around 08/24, so needs to be before that. Asked her to call back with dates that could be available. * Telephone Encounter - Leanna Dickinson MD - 07/26/2019 0958 EST TC to [facility] to discuss upcoming IVF. Reviewed with her that a spot has opened up in September for IVF and we would like to offer her thatspot if it works out with her cycle. She states she is expecting menses 08/07 which is within dates for OCP start for Fe (07/17-08/10). We reviewed dates for IVF cycle and she has no travel or issues with the planned dates and she would like to move her IVF to Sep. 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 Leanna Dickinson MD Reproductive Endocrinology and Infertility Fellow documented in this encounter Plan of Treatment Not on file documented as of this encounter Visit Diagnoses Not on filedocumented in this encounter Care Teams Test Inspection Engineer Relationship Specialty Start Date End Date Mary Montana MD [address] [place] [phone] PCP - General 04/05/19 10/27/22 Mary Montana MD [address] [place] [phone] 03/25/19 documented as of this encounter
--- OUTSIDE RECORDS SUMMARY | 2024-09-15 00:30 | XMS_ITS | Encounter Summary ---
Author Organization [facility] Address [address] [place] [address] Care Team Providers Care Oil And Gas Well Treatment Operator Name Role Phone Mary Montana MD Primary Care Provider [phone] Unknown, Provider Primary Care Provider Unava ilMary Guajardo MD Unavailable Mary Montana MD Primary Care Provider [phone] Encounter Details Date Type Department Care Team (Late st Contact Info) Description 12/12/2017 Historical Results Only [facility] - [facility] Lab - Main [address] [phone] Cassidy Duckworth PA [address] [place] [address] Social History Tobacco Use Types [...] Procedure Name Priority Date/Time Associated Diagnosis Comments THYROID STIM HORMONE POC - CV Routine 12/12/2017 13:56 EDT documented in this encounter Results * THYROID STIM HORMONE POC - CV (12/12/2017 13:56 EDT) THYROID STIM HORMONE - [facility] 0.91 0.45 - 5.33 UIU/ML 12/15/2017 13:56 EDT [facility] 12/12/2017 13:5 6 EDT 12/12/2017 13:56 EDT us Cassidy MARTINS CHEMISTRY & BLOOD GAS ORDERAB LES Final Result [facility] documented in this encounter Visit Diagnoses Not on filedocumented in this encounter Care Teams Oil And Gas Well Treatment Operator Relationship Specialty Start Date End Date Mary Montana MD [address] [place] [phone] PCP - General 10/15/11 03/24/19 Unknown, Provider, [address] [place] [address] PCP - General 03/25/19 9 Mary Montana MD [address] [place] [address] PCP - General 04/05/19 10/27/22 Mary Montana MD [address] [place] [address] 03/25/19 documented as of this encounter
--- OUTSIDE RECORDS SUMMARY | 2024-09-15 00:30 | XMS_ITS | Encounter Summary ---
Author Organization [facility] Address [address] [place] [address] Care Team Providers Care Vertical Mill Operator Name Role Phone Mary Montana MD Primary Care Provider [phone] Encounter Details Date Type Department Care Team (Latest Contact Info) Description 10/19/2016 7:48 EST - 10/19/2016 23:59 EST Hospital Encounter [facility] [address] [place] [address] Unknown, Provider, Discharge Disposition: Home or Self [...] Code Departure Means Destination Home or Self [facility] documented in this encounter Plan of Treatment Not on file documented as of this encounter Visit Diagnoses Not on filedocumented in this encounter Care Teams Vertical Mill Operator Relationship Specialty Start Date End Date Mary Montana MD [address] [place] [phone] PCP - General 10/15/11 03/24/19 documented as of this encounter
--- OUTSIDE RECORDS SUMMARY | 2024-09-15 00:30 | XMS_ITS | Encounter Summary ---
Author Organization [facility] Address [address] [place] [address] Care Team Providers Care Tire Cord Weaver Name Role Phone Mary Montana MD Unavailable Mary Montana MD Primary Care Provider [phone] Reason for Visit * Reason Comments Advice Only IVF intake Encounter Details Date Type Department Care Team (Late st Contact Info) Description 05/04/2019 14:15 EDT Office Visit [facility] Rep[facility] Inf[facility] - [address] [id number] Suzan Kaur MD [address] [facility], [address] [place] [phone] Pre-procedure lab exam (Primary Dx); Encounter for preconception consultation; Screen for STD (sexually transmitted disease); Tubal infertility in female Discharge Disposition: Auto Discharge Social History Tobacco Use Types Packs/Day Years [...] Sign Reading Time Taken Comments Blood Pressure 118/66 05/04/2019 1417 EDT Pulse - - Temperature - - Respiratory Rate - - Oxygen Saturation - - Inhaled Oxygen Concentration - - Weight 82.6 kg (182 lb) 05/04/2019 1417 EDT Height 165.1 cm (5' 5) 05/04/2019 1417 EDT Body Mass Index 30.29 05/04/2019 1417 EDT documented in this encounter Functional Status [...] 14:18 EDT documented in this encounter Discharge Diagnoses Diagnosis Z01.812 Encounter for preprocedural laboratory examination-Z01.812[ICD-10-CM] Z31.69 Encounter for other general counseling and advice on procreation-Z31.69[ICD-10-CM] Z11.3 Encounter for screening for infections with a predominantly sexual mode of transmission-Z11.3[ICD-10-CM] 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 Yes FERTILITY HISTORY: 34 y.o. with BTL in 2008, desires one child with her new partner, here for IVF counseling. Has $50,000 insurance coverage for IVF. 1st at 35wk after PROM 2nd SAB, passed spontaneously 3rd IOL at 37wk for LGA fetus OVULATORY RISK FACTORS Patient's last menstrual period was 04/28/2019. Cycles are regular every 23-25 days. Evidence of ovulation: not checking Clinical signs of hyperandrogenism? No History of thyroid disorder? No Recent TSH? Yes: 1.23 04/20/19 History of galactorrhea? No Recent travel to zika affected area for either partner? No Last pap: 01/2017 NILM, HPV neg Immune to rubella, varicella, measles 04/20/19 Urine GC/CT neg 04/07/19 TUBAL RISK FACTORS History of ectopic ? No History of sexually transmitted infections? No (HPV) History of pelvic inflammatory disease? No History of endometriosis? No History of pelvic/tubal surgery? Yes BTL History of ruptured appendix? No Uterine cavity Assessment? SHG normal 05/04/19 OVARIAN RESERVE TEST RESULTS: FSH: 4 AMH: 1.8 (04/20/19) Estradiol: not done AFC: 22 (05/04/19) OB History 3 Para 2 Term 1 1 AB 1 Living 2 SAB 1 TAB 0 Ectopic 0 Multiple 0 Live Births 2 Past Medical History: Diagnosis Date ??? Abnormal Pap smear of cervix ??? Back pain upper back pain, (when did this problem start?) 3 yrs ago Past Surgical History: Procedure Laterality Date ??? ABDOMINOPLASTY ??? BREAST ENHANCEMENT SURGERY ??? CERVIX SURGERY ??? TUBAL LIGATION No family history on file. History of Cystic Fibrosis: no History of Defects/Mental/Physical Handicap: no Social History Socioeconomic History ??? Marital status: Spouse name: None ??? Number of children: None ??? Years of education: None ??? Highest education level: None Occupational History ??? None Social Needs ??? Financial resource strain: None ??? Food insecurity: Worry: None Inability: None ??? Transportation needs: Medical: None Non-medical: None Tobacco Use ??? Smoking status: Never Smoker ??? Smokeless tobacco: Never Used Substance and Sexual Activity ??? Alcohol use: Yes Comment: 1 x pr wk ??? Drug use: None ??? Sexual activity: None Lifestyle ??? Physical activity: Days per week: None Minutes per session: None ??? Stress: None Relationships ??? Social connections: Talks on phone: None Gets together: None Attends oriental orthodox service: None Active member of club or organization: None Attends meetings of clubs or organizations: None Relationship status: None ??? Intimate partner violence: Fear of current or ex partner: None Emotionally abused: None Physically abused: None Forced sexual activity: None Other Topics Concern ??? None Social History Narrative ??? None Current Outpatient Medications: multivit-minerals/folic acid (ADULT MULTIVITAMIN GUMMIES ORAL) No current facility-administered medications for this visit. 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 Past Medical History None ?? Past Surgical History None ?? Medications None ?? Exposure to reproductive toxins: Lead ?? Paternity of Pregnancies: Number with this partner: 0 Number with other partners: 1 Age of youngest child: 6 ?? Urologic History: Infection no STD no Mumps no Varicocele no Semen analysis no Undescended Testes no Testicular Trauma no Genital Surgery no Ejaculatory Problem no Impotence no ?? SEMEN ANALYSIS/WASHUPS: Component Latest Ref Rng & Units 05/04/2019 Partner Jonathon Isabel Referring Provider Pearson Time Received 935 Received by Examined at 1,015 Viscosity Norm/Viscous normal pH 7.2 - 9 8.0 Specimen Volume >=1.5 ml 2.4 Sperm Count >=15 M/ml 108 Total Sperm Count >=39 Million 259.2 Motility >=40% 59 Motility, Speed of Progression(graded),POC 3+UndulatingRapidProg Total Motile Sperm <=10mill do IUI scrn million 152.9 Morphology pending PHYSICAL EXAM: BP 118/66 Ht 165.1 cm (65) Wt 82.6 kg (182 lb) LMP 04/28/2019 BMI 30.29 kg/m?? General appearance: alert, cooperative Neck: supple, symmetrical, trachea midline and thyroid: not enlarged, symmetric, no tenderness/mass/nodules Lungs: non labored breathing Neurologic: Alert and oriented X 3, normal strength and tone. Normal coordination and gait Mental Status: awake and alert; oriented to person, place, and time Extremities: all extremities warm and well perfused Counseling: We discussed national and site specific live rates with IVF 37% with one cycle, 56% with two cycles, 70% with 3 cycles. Risks associated with IVF including multiple , selective reduction, miscarriage, ectopic , cycle cancellation, OHSS, surgical risks, and defects were reviewed. We reviewed methods of fertilization (standard vs ICSI), the use of assisted hatching and the ASRM recommended limits of number of embryos to transfer 1. Zika Counseling: Discussed risk of transmission of Zika virus and its prevalence. Discussed risk tofetus. Information given to the couple regarding the virus. Discouraged travel to these areas. 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 Workup will then be complete. Discussed the benefits of weight loss to improve success with IVF and decrease risk of miscarriage.She has already lost 20 lbs this year. I spent a total of 45 minutes in face to face time with this patient today and over half of that time was spent in counseling and coordination of care as described in the progress note. Bibi Kaur M.D. Reproductive Endocrinology and Infertility * Brynn Yates RN - 05/04/2019 1415 EDT Blood drawn via right AC using a butterfly needle. Pt tolerated procedure well. Pressure and 2x2 applied, secured with paper tape. SST and lavender tube(s) sent to the lab per order. documented in this encounter Miscellaneous Notes * Result Encounter Note - Suzan Kaur MD - 05/04/2019 1415 EDT Your screening labs pre-IVF are all normal. Vitamin D level is slightly low, recommend 1000 IU D3 by mouth daily. documented in this encounter Plan of Treatment Not on file documented as of this encounter Procedures Procedure Name Priority Date/Time Associated Diagnosis Comments PROFILE IVF NON DONOR Routine 05/04/2019 15:17 EDT Screen for STD (sexually transmitted disease) VITAMIN D (25,OH) Routine 05/04/2019 15: 17 EDT Encounter for preconception consultation COMPLETE BLOOD COUNT Routine 05/04/2019 15:17 EDT Pre-procedure lab exam TYPE AND SCREEN Routine 05/04/2019 15:15 EDT Pre-procedure lab exam documented in this encounter Results * PROFILE IVF NON DONOR (05/04/2019 15:17 EDT) HIV 1/2 Antibody Negative Negative 05/05/20 11:40 EDT [facility] Comment: Fourth generation assay performed on the Siemens Bravoflyaur. If acute HIV-1 infection is suspected in a high risk patient, submit plasma specimen for HIV-1 RNA quantification test. Hepatitis B Core Antibody Negative Negative 05/05/2019 11:40 EDT [facility] Hepatitis B Surface Antigen Negative Negative 05/05/2019 11:42 EDT [facility] Syphilis Serology Negative 019 10:49 EDT [facility] Comment:Reference Range: Neg ative Hep C Ab w Rfx PCR HCSCR2 Negative Negative 05/05/2019 10:36 EDT [facility] Blood specimen (specimen) BLOOD SPECIMEN / Unknown 05/04/2019 15:17 EDT 05/04/2019 16:30 EDT us Suzan Karu MD PACKAGES & DNA PROBE ORDE RABSUSI Final Result Performing Organization Address City/[facility] Co de Phone Number [facility] [address] [place] [address] * (ABNORMAL) VITAMIN D (25,OH) (05/04/2019 15:17 EDT) 25OH Vitamin D Tot 28.6(L) 30 - 100 ng/ml 05/05/2019 10:48 EDT [facility] Comment: Reference Range: Deficient = <10 ng/ml Insufficient = 10-30 ng/ml Sufficient = 30-100 ng/ml Toxic = >100 ng/ml Blood specimen (specimen) BLOOD SPECIMEN / Unknown 05/04/2019 15:17 EDT 05/04/2019 16:30 EDT us Suzan Kaur MD CHEMISTRY & BLOOD GAS ORD ERABLES Final Result Performing Organization Address City/[facility]/ZIP Co de Phone Number [facility] [address] [place] [address] * (ABNORMAL) COMPLETE BLOOD COUNT (05/04/2019 15:17 EDT) WBC 7.21 4.0 - 12.4 K/cmm 05/04/2019 16:51 EDT [facility] RBC 4.93 3.86 - 5.04 M/cmm 05/04/2019 16:51 EDT [facility] Hemoglobin 13.1 11.6 - 15.2 gm/dl 05/04/2019 16:51 EDT [facility] HCT 40.2 34.9 - 44.4 % 05/04/2019 16:51 EDT [facility] MCV 82 81 - 98 fl 05/04/2019 16:51 EDT [facility] MCH 26.6(L) 26.7 - 33.3 pg 05/04/2019 16:51 EDT [facility] MCHC 32.6 32.1 - 35.9 gm/dl 05/04/2019 16:51 EDT [facility] RDW-CV 12.7 <14.7 % 05/04/2019 16:51 EDT [facility] RDW-SD 37.7 <50.4 fl 05/04/2019 16:51 EDT [facility] PLT 334 141 - 377 K/cmm 05/04/2019 16:51 T [facility] MPV 11.1 9.5 - 12.7 fl 05/04/2019 16:51 EDT [facility] Blood specimen (specimen) BLOOD SPECIMEN / Unknown 05/04/2019 15:17 EDT 05/04/2019 16:30 EDT us Suzan Kaur MD HEMATOLOGY & PF4 ORDERABL ES Final Result Performing Organization Address [facility]/ZIP Co de Phone Number [facility] [address] [place] [address] * TYPE AND SCREEN (05/04/2019 15:15 EDT) ABO O [facility] Rh Factor Positive [facility] Antibody Screen Negative [facility] Specimen Expires: 05/07/2019 @ 23:59 [facility] Blood specimen (specimen) 05/04/2019 15:15 EDT us Suzan Kaur MD BLOOD BANK TESTS Final Re sult Performing Organization Address 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 multivit-minerals/f olic acid (ADULT MULTIVITAMIN GUMMIES ORAL) Take by mouth. 11/11/2019 added in this encounter Care Teams Tire Cord Weaver Relationship Specialty Start Date End Date Mary Montana MD [address] [place] [phone] PCP - General 04/05/19 10/27/22 Mary Montana MD [address] [place] [phone] 03/25/19 documented as of this encounter
--- OUTSIDE RECORDS SUMMARY | 2024-09-15 00:30 | XMS_ITS | Encounter Summary ---
Author Organization [facility] Address [address] [place] [address] Care Team Providers Care Relays Draftsperson Name Role Phone Mary Montana MD Unavailable Mary Montana MD Primary Care Provider [phone] Reason for Visit * Reason Onset Date Comments Coordination Of Care 09/07/2019 Encounter Details Date Type Department Care Team (Late st Contact Info) Description 09/07/2019 Telephone [facility] Medicine [facility] Inf[facility] - [facility] [address], [place] [phone] Fany Walters RN Coordination Of Care Social [...] Telephone Encounter - Fany Walters RN - 09/07/2019 6900 EST Telephoned patient to review results of labs and continued medication plan. E2= 358 Advised patient to decrease GN to 2/1. Next step is USE on 09/09 @ 0840. Discussed with Dr Kaur. Patient verbalized understanding of plan. documented in this encounter Plan of Treatment Not on file documented as of this encounter Visit Diagnoses Not on filedocumented in this encounter Care Teams Relays Draftsperson Relationship Specialty Start Date End Date Mary Montana MD [address] [place] [phone] PCP - General 04/05/19 10/27/22 Mary Montana MD [address] [place] [address] 03/25/19 documented as of this encounter
--- OUTSIDE RECORDS SUMMARY | 2024-09-15 00:30 | XMS_ITS | Encounter Summary ---
Author Organization [facility] Address [address] [place] [address] Care Team Providers Care Ocean Lifeguard Specialist Name Role Phone Mayr Montana MD Primary Care Provider [phone] Unknown, Provider Primary Care Provider Unava ilMary Guajardo MD Unavailable Mary Montana MD Primary Care Provider [phone] Encounter Details Date Type Department Care Team (Late st Contact Info) Description 10/19/[address] [facility] [place] [address] [place], [place] [phone] Marcie Stock, SUPERVISOR ELECTRONICS TESTING ENP [address] [place] [address] Social History Tobacco Use Types [...] Name Priority Date/Time Associated Diagnosis Comments US EXTREMITY 10/19/2016 18:26 EST documented in this encounter Results * US EXTREMITY (10/19/2016 18:26 EST) Anatomical Region Laterality Modality Other 10/19/2016 18:2 6 EST Narrative 10/19/2016 18:27 EST ? EXAM: ULTRASOUND/DOPPLER VEIN EXTREMITY L EX. D/ (1809) ? CLINICAL INFORMATION: ? LINDSAY - Pain left upper extremity ? EXAM: ? US Duplex Left Upper Extremity Veins. ? CLINICAL HISTORY: ? 31 years old, female; Pain and signs and symptoms; Edema, ? localized; Upper extremity, left; Arm; Patient HX: Patient had ? most of lower left arm covered in a tattoo two days ago. Has ? since developed pain, swelling, and redness in the area that was ? tattooed, as well as slightly above it near her elbow. She did ? not want her lower arm where the tattoo was just done being ? touched by the probe or the ultrasound gel. All the veins at the ? elbow and above appear patent, and compress and augment ? normally. ; Additional info: Lindsay - pain left upper extremity ? TECHNIQUE: ? Real-time ultrasound scan of the veins of the left upper ? extremity with color Doppler flow, spectral waveform analysis ? and compression. ? EXAM DATE/TIME: ? 10/19/2016 5:28 PM ? COMPARISON: ? No relevant prior studies available. ? FINDINGS: ? Deep veins: ??Unremarkable. ??No DVT in the internal jugular, ? subclavian, axillary, or brachial veins. ? Superficial veins: ??Unremarkable. ??No thrombus in the ? visualized superficial veins. ? Soft tissues: ??No acute findings. ? IMPRESSION: ? Normal left upper extremity duplex venous ultrasound. ? REPORT SIGNED IN OTHER VENDOR SYSTEM 10/19/2016 ?Reported By: Elias Quintanilla MD ? CC: ? Transcribed Date/Time: 10/19/2016 (1827) ? Loan Supervisor: [employer] ? Printed Date/Time: 01/23/2019 (5098) ? PAGE 1 ? Signed Report ? Procedure Note Elias Quintanilla MD - 06/16/2019 EXAM: ULTRASOUND/DOPPLER VEIN EXTREMITY L EX. D/ (1809) CLINICAL INFORMATION: LINDSAY - Pain left upper extremity EXAM: US Duplex Left Upper Extremity Veins. CLINICAL HISTORY: 31 years old, female; Pain and signs and symptoms; Edema, localized; Upper extremity, left; Arm; Patient HX: Patient had most of lower left arm covered in a tattoo two days ago. Has since developed pain, swelling, and redness in the area that was tattooed, as well as slightly above it near her elbow. She did not want her lower arm where the tattoo was just done being touched by the probe or the ultrasound gel. All the veins at the elbow and above appear patent, and compress and augment normally. ; Additional info: Lindsay - pain left upper extremity TECHNIQUE: Real-time ultrasound scan of the veins of the left upper extremity with color Doppler flow, spectral waveform analysis and compression. EXAM DATE/TIME: 10/19/2016 5:28 PM COMPARISON: No relevant prior studies available. FINDINGS: Deep veins: Unremarkable. No DVT in the internal jugular, subclavian, axillary, or brachial veins. Superficial veins: Unremarkable. No thrombus in the visualized superficial veins. Soft tissues: No acute findings. IMPRESSION: Normal left upper extremity duplex venous ultrasound. REPORT SIGNED IN OTHER VENDOR SYSTEM 10/19/2016 Reported By: Elias Quintanilla MD CC: Transcribed Date/Time: 10/19/2016 (7230) Loan Supervisor: Printed Date/Time: 01/23/2019 (8653) PAGE 1 Signed Report us Marcie Stock SUPERVISOR [employer] TESTING ENP IMG US ORDERABLES Final Re sult documented in this encounter Visit Diagnoses Not on filedocumented in this encounter Care Teams Ocean Lifeguard Specialist Relationship Specialty Start Date End Date Mary Montana MD [address] [place] [phone] PCP - General 10/15/11 03/24/19 Unknown, Provider, [address] [place] [address] PCP - General 03/25/19 9 Mary Montana MD [address] [place] [phone] PCP - General 04/05/19 10/27/22 Mary Montana MD [address] [place] [phone] 03/25/19 documented as of this encounter
--- OUTSIDE RECORDS SUMMARY | 2024-09-15 00:30 | XMS_ITS | Encounter Summary ---
Author Organization [facility] Address [address] [place] [address] Care Team Providers Care Senior Executive Compensation Analyst Name Role Phone Mary Montana MD Unavailable Mary Montana MD Primary Care Provider [phone] Reason for Visit * Reason Comments Infertility Baseline with mock Encounter Details Date Type Department Care Team (Latest Contact Info) Description 09/02/2019 8:00 EST Office Visit [facility] Reproductive Medicine & Infertility Center - [facility] [address] [place] [address] Gary Lion MD [address] [place] [address] [phone] Encounter for assisted reproductive fertility [...] 9:20 EDT documented as of this encounter Last Filed Vital Signs Vital Sign Reading Time Taken Comments Blood Pressure 100/68 09/02/2019 0807 EST Pulse - - Temperature - - Respiratory Rate - - Oxygen Saturation - - Inhaled Oxygen Concentration - - Weight 85.3 kg (188 lb) 09/02/2019 0807 EST Height 165.1 cm (5' 5) 09/02/2019 0807 EST Body Mass Index 31.28 09/02/2019 0807 EST documented in this encounter Functional Status [...] Progress Notes * Arvind Mcgarry MD - 09/02/2019 0800 EST BASELINE IVF VISIT Date: 09/02/2019 ID: [id number] y.o. 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 We discussed at length the stimulation and retrieval process, and the patient signed consent todayfor Mock Embryo Transfer as well as the Transvaginal Ultrasound Guided Oocyte Retrieval. Past Medical History: Diagnosis Date ??? Abnormal Pap smear of cervix ??? Back pain upper back pain, (when did this problem start?) 3 yrs ago Past Surgical History: Procedure Laterality Date ??? ABDOMINOPLASTY ??? BREAST ENHANCEMENT SURGERY ??? CERVIX SURGERY ??? TUBAL LIGATION OB History Para Term AB Living 3 2 1 1 1 2 SAB TAB Ectopic Multiple Live Births 1 0 0 0 2 # Outcome Date GA Lbr Fabian/2nd Weight Sex Delivery Anes PTL Lv 3 Term NATALIIA 2 SAB 1 NATALIIA Patient Vitals for the past 24 hrs: BP Height Weight 09/02/19 0807 100/68 165.1 cm (65) 85.3 kg (188 lb) GEN: alert and oriented, cooperative, no distress, appears stated age Psych: Exhibits appropriate mood and judgement. HEENT: NC/AT, No lumps, bumps, lesions. Mucous membranes are moist and pink. Neck: Supple, non-tender, trachea midline. No lymphadenopathy or thyromegaly appreciated. CV:RRR Resp:CTAB Abd:soft, non-tender/non-distended; bowel sounds normal; no masses, no organomegaly appreciated Ext: No clubbing, cyanosis, or edema Baseline Scan 09/02/2019: 3 mm endometrium ROV AFC 9-10 CRUZ AFC 6-7 Trial transfer: Johns catheter 7.5 cm fundal length 6.5 cm transfer length. PLAN Lupron 10 -> 5 GN 225 + 75 (10/09) All IVF for fertilization Transfer: 1-2 embryos The patient was seen and discussed with Dr. Lion Electronically signed by: Arvind Mcgarry MD, PGY6 Fellow Reproductive Endocrinology & Infertility [facility] 09/02/2019 / 9:42 JULIAN Attending Addendum: I personally saw and evaluated the patient with Dr. Mcgarry and agree with the plan of care as documented in the assessment and plan above. ? I personally spent 15 minutes with this patient in face to face discussion, more than half of whichwas spent in counseling regarding her condition and treatment options/plans. ?? Gary Lion M.D. Reproductive Endocrinology and Infertility ?? documented in this encounter Miscellaneous Notes * Addendum Note - Gary Lion MD - 09/02/2019 0800 ESTAddended by: GARY LION on: 11/05/2019 16:30 Modules accepted: Level of Service documented in this encounter Plan of Treatment Not on file documented as of this encounter Procedures Procedure Name Priority Date/Time Associated Diagnosis Comments PROGESTERONE Routine 09/02/2019 8:51 EST Encounter for assisted reproductive fertility cycle ESTRADIOL, ADULTS Routine 09/02/2019 8:5 1 EST Encounter for assisted reproductive fertility cycle documented in this encounter Results * PROGESTERONE (09/02/2019 8:51 EST) Progesterone <0.2 See Table ng/mL 09/02/2019 10:54 EST [facility] Comment: Female Reference Ranges: PHYSIOLOGICAL STATUS ? EXPECTED RANGE ? > or = 18 Years Menstruating: (Non-) Follicular Phas: ?<= 1.4 ng/mL Luteal Phase: ? 3.3 - 25.6 ng/mL Mid-luteal Phase: ? 4.4 - 28.0 ng/mL Postmenopausal: ? <= 0.7 ng/mL : -------- First Trimester: ? 11.2 - 90.0 ng/mL Second Trimester: ?25.6 - 89.4 ng/mL Third Trimester: ? 48.4 - 422.5 ng/mL For ectopic , consult a pathologist Reference Ranges for female patients <18 years old have not been established. Blood VENOUS BLOOD / Unknown Venipuncture / Unknown 09/02/2019 8:51 EST 09/02/2019 8:51 EST Arvind Mcgarry MD CHEMISTRY & BLOOD GAS EDGAR AMBROSIO Final Result Performing Organization Address [facility] de Phone Number [facility] [address] [place] [address] * ESTRADIOL, ADULTS (09/02/2019 8:51 EST) [facility] Signature Estradiol 19 See Note pg/mL 09/02/2019 10:54 EST [facility] Comment: NOTE: Female Reference Ranges: MENSTRUATING FEMALES ? By day in cycle relative to LH peak ??Follicular Phase ? (-12 to -4 days): ?20 - 144 pg/mL ??Midcycle ? (-3 to +2 days): ? 64 - 357 pg/mL ??Luteal Phase ? (+4 t0 +12 days): ?56 - 214 pg/mL POSTMENOPAUSAL FEMALES ? <33 pg/mL *Cross reactivity with Fulvestrant could lead to a falsely elevated estradiol result in patients treated with this drug. Blood VENOUS BLOOD / Unknown Venipuncture / Unknown 09/02/2019 8:51 EST 09/02/2019 8:51 EST us Arvind Mcgarry MD CHEMISTRY & BLOOD GAS EDGAR AMBROSIO Final Result Performing Organization Address [facility] Co de Phone Number [facility] [address] [place] [address] documented in this encounter Visit Diagnoses Diagnosis Encounter for assisted reproductive fertility cycle- Primary Encounter for assisted reproductive fertility procedure cycle documented in this encounter Care Teams Senior Executive Compensation Analyst Relationship Specialty Start Date End Date Mary Montana MD [address] [place] [phone] PCP - General 04/05/19 10/27/22 Mary Montana MD [address] [place] [phone] 03/25/19 documented as of this encounter
--- OUTSIDE RECORDS SUMMARY | 2024-09-15 00:30 | XMS_ITS | Encounter Summary ---
Author Organization [facility] Address [address] [place] [address] Care Team Providers Care [id number] Armor Crewman Name Role Phone Mary Montana MD Primary Care Provider [phone] Encounter Details Date Type Department Care Team (Latest Contact Info) Description 12/24/2016 20:29 EDT - 12/24/2016 23:59 EDT Hospital Encounter [facility] [address] [place] [address] Unknown, Provider, Discharge Disposition: Home or Self [...] Code Departure Means Destination Home or Self [facility] documented in this encounter Plan of Treatment Not on file documented as of this encounter Visit Diagnoses Not on filedocumented in this encounter Care Teams [id number] Armor Crewman Relationship Specialty Start Date End Date Mary Montana MD [address] [place] [phone] PCP - General 10/15/11 03/24/19 documented as of this encounter
--- OUTSIDE RECORDS SUMMARY | 2024-09-15 00:30 | XMS_ITS | Encounter Summary ---
Author Organization [facility] Address [address] [place] [address] Care Team Providers Care Starbucks Clerk Name Role Phone Mary Montana MD Unavailable Mary Montana MD Primary Care Provider [phone] Reason for Visit * Reason Onset Date Comments Coordination Of Care 05/07/2019 Encounter Details Date Type Department Care Team (Late st Contact Info) Description 05/07/2019 Telephone [facility] Reproductive Medicine & Infertility Center - [facility] [address] [place] [address] Stephanie Quinones, RN [address] [place] [address] Coordination Of Care Social History Tobacco Use [...] Telephone Encounter - Stephanie Quinones RN - 05/07/2019 1342 EDT Jonathon called to ask about next steps now that her IVF workup is complete. Advised that we will review her case at our team meeting this week, and Dr Dickinson will call her to let her know what month she is schedule in. Jonathon verbalized understanding. documented in this encounter Plan of Treatment Not on file documented as of this encounter Visit Diagnoses Not on filedocumented in this encounter Care Teams [employer] Clerk Relationship Specialty Start Date End Date Mary Montana MD [address] [place] [phone] PCP - General 04/05/19 10/27/22 Mary Montana MD [address] [place] [phone] 03/25/19 documented as of this encounter
--- OUTSIDE RECORDS SUMMARY | 2024-09-15 00:30 | XMS_ITS | Encounter Summary ---
Author Organization [facility] Address [address] [place] [address] Care Team Providers Care Ext Js Developer Name Role Phone Mary Montana MD Unavailable Mary Montana MD Primary Care Provider Reason for Visit * Reason Comments Nutrition Counseling Encounter Details Date Type Department Care Team (Late st Contact Info) Description 08/20/2019 9:00 EST Nutrition [facility] [address] [phone] Cht Registered Dietitian, [facility] Social History Tobacco Use Types Packs/Day Years [...] documented in this encounter Progress Notes * Dayna Brennan MD - 08/20/2019 0900 EST S: I wanted to get some help with weight loss before I get but the IVF stuff is happeningquicker than we thought. I'd still like to talk about strategies though. O: 34 year old obese woman here for weight loss help Ht: 5'5 Wt: 187# on home scale today BMI: 31 Time spent with patient: 60 minutes, 15 minutes charting Type of interaction: Office visit, in person A: Jonathon comes in today for her initial nutrition appointment. She was over the summer and is looking to get but wanted to lose some weight before getting . She was able tolose around 22# before her wedding and had kept most of that off until the holidays when she gained8-9#. We discussed her normal eating of a muffin and coffee for breakfast, lunch is out somewhere in [place] or once a week in [facility]. Dinner is cooked by her - meat and starch. She had been eating a lot of sweets over the holidays. She is not currently exercising. We discussed strategies and she picked some to start doing. Goals are below. P: Goals: 1. Use the [employer] to track intake. 2. Bring daily snacks from home. 3. Continue to get favorite macedonian meal once a week but divide it into 2 meals. 4. Bring lunch from home other 3 days. 5.She desires no follow up at this time but will call/email/reschedule as needed. documented in this encounter Plan of Treatment Not on file documented as of this encounter Visit Diagnoses Not on filedocumented in this encounter Care Teams Ext Js Developer Relationship Specialty Start Date End Date Mary Montana MD [address] [place] [phone] PCP - General 04/05/19 10/27/22 Mary Montana MD [address] [place] [phone] 03/25/19 documented as of this encounter
--- OUTSIDE RECORDS SUMMARY | 2024-09-15 00:30 | XMS_ITS | Encounter Summary ---
Author Organization [facility] Address [address] [place] [address] Care Team Providers Care Professor Of Biological Sciences Name Role Phone Mary Montana MD Unavailable Mary Montana MD Primary Care Provider [phone] Reason for Visit * Reason Onset Date Comments Coordination Of Care 05/18/2019 Encounter Details Date Type Department Care Team ([facility] st Contact Info) Description 05/18/2019 Telephone [facility] Reproductive Medicine & Infertility Center - [facility] [address] [place] [address] Leanna Dickinson MD [address] [place] [phone] Coordination Of Care Social History Tobacco Use [...] Miscellaneous Notes * Telephone Encounter - Leanna Garcia - 05/18/2019 1121 EDT TC to Jonathon to let her know that she is currently confirmed in a spot for IVF in November. Let her know that if something opened up sooner we would be in touch, otherwise next steps will be to start PNV in August as recommended 3 months prior to cycle and we would be in touch when we have dates forIVF in November. Leanna Dickinson MD Reproductive Endocrinology and Infertility Fellow documented in this encounter Plan of Treatment Not on file documented as of this encounter Visit Diagnoses Not on filedocumented in this encounter Care Teams Professor Of Biological Sciences Relationship Specialty Start Date End Date Mary Montana MD [address] [place] [phone] PCP - General 04/05/19 10/27/22 Mary Montana MD [address] [place] [phone] 03/25/19 documented as of this encounter
--- OUTSIDE RECORDS SUMMARY | 2024-09-15 00:30 | XMS_ITS | Encounter Summary ---
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 Brynn Victoria MD Phone: tel: fax: Referral ID Status Reason Start Date Expiration Date V isits Requested Visits Authorized [id number] New Request 04/07/2019 1 1 Reason for Visit * Reason Comments Advice Only * Consult (Routine) - Closed Specialty Diagnoses / Procedures Referred By Contact Referred To Contact Reproductive Endocrinology and Infertility Diagnoses Encounter for tubal ligation counseling Adry Oneill MD Phone: tel:[phone] fax:[phone] [facility] Reproductive [facility] Inf[facility] - [facility] [address] [place] [address] Phone: tel: fax: Referral ID Status Reason Start Date Expiration Date Visits Re quested Visits Authorized [id number] Closed 1 1 Encounter Details Date Type Department Care Team (Late st Contact Info) Description 04/07/2019 15:45 EDT Office Visit [facility] Rep[facility] - [address] [id number] Brynn Victoria MD [address] [facility], [address] [place] [address] [place] [id number] [facility] [address] [place] [id number] Fertility testing (Primary Dx); Encounter for preconception consultation; History of tubal ligation Discharge Disposition: Auto Discharge Social History Tobacco [...] Sign Reading Time Taken Comments Blood Pressure 112/68 04/07/2019 1546 EDT Pulse - - Temperature - - Respiratory Rate - - Oxygen Saturation - - Inhaled Oxygen Concentration - - Weight 81.6 kg (180 lb) 04/07/2019 1546 EDT Height 165.1 cm (5' 5) 04/07/2019 1546 EDT Body Mass Index 29.95 04/07/2019 1546 EDT documented in this encounter Discharge Diagnoses Diagnosis Z31.41 Encounter for fertility testing-Z31.41[ICD-10-CM] Z31.69 Encounter for other general counseling and advice on procreation-Z31.69[ICD-10-CM] Z98.51 Tubal ligation status-Z98.51[ICD-10-CM] documented in this encounter Patient Instructions * Patient Instructions* Jose David Pearson MD - 04/07/2019 15:45 EDT Images from the original note were not included. Please schedule an ultrasound (HyCoSy) on day 5 to 12 of your menstrual cycle (you can call [phone] on the first day of your next menstrual cycle). We will also draw a progesterone level (blood test) on day 18 of your next menstrual cycle. We willalso draw FSH, estradiol and TSH along with some viral tests on day 3 of your next cycle. Please have your partner call to schedule a semen analysis with your ultrasound. Once we have all the information, we will meet again to discuss results and make a plan. [facility] Reproductive Medicine Women???[facility] [place] WHAT IS A HYCOSY PROCEDURE? A test for tubal patency (open). Myhagihdjwazeeq-qfnbkzyy-xlqqedctiu (usually shortened to HYCOSY) is a simple and well-tolerated outpatient ultrasound procedure used to assess the patency of the fallopian tubes, as well as detect abnormalities of the uterus and the endometrium (uterine lining). The test requires the use of a contrast agent to visualize the patency of the fallopian tubes. Manywomen will be able to have the test performed simply using an agitated saline / air mixture. The HyCoSy procedure is a safe and reliable alternative to the conventional hysterosalpingogram (HSG) which uses X-rays. No radiation or iodinated contrast material is used for a HyCoSy test. WHY WOULD I NEED A HYCOSY PROCEDURE? Investigation of infertility is the main reason for a woman to be referred for a HyCoSy procedure. Occluded (blocked) fallopian tubes are a common cause of infertility. Tubal occlusion can occur with a number of conditions including previous pelvic infection, severe endometriosis, previous appendicitis and pelvic adhesions. Many women will be unaware that these conditions are present and that tubal blockage has occurred. A normal fallopian tube is not seen with regular ultrasound. Even if the fallopian tube is blocked, it may still be difficult to see on regular ultrasound unless it is also filled with fluid (forming what is known as a hydrosalpinx). This is why a special testusing a contrast agent is useful, as it helps the physician to visualize the fallopian tubes and assess whether they are patent (working). DOES THE HYCOSY PROCEDURE ONLY EXAMINE MY TUBES? The HyCoSY procedure allows integrated assessment of the fallopian tubes, the uterus and and endometrial cavity, and the pelvis. The initial part of the HyCoSy procedure uses saline to assess the endometrial cavity for pathology. The doctor will be looking for problems such as endometrial polyps, submucosal fibroids and congenital uterine abnormalities (such as a uterine septum). The HyCoSY procedure also allows concurrent ultrasound review of the remaining pelvis, such as the ovaries. HOW DO I PREPARE FOR A HYCOSY? It is important that you are not when you have this test, as the procedure can disturb theimplantation of the embryo. If there is a possibility that you are , the procedure will need to be postponed until your next menstrual cycle. The best time to perform a HyCoSy is just after your period has finished, approximately day 4 to day 10 of a regular 28-day (monthly) menstrual cycle (the first day of your period is counted as day 1). If your menstrual cycle is shorter than 28 days (for example, you usually have 21 days between periods), you will need to have the test earlier in the cycle. If your menstrual cycle is longer than 28 days, but still regular (for example, you usually have 35days between periods), you may be able to have the test later in the cycle if that is more convenient. If your periods are infrequent or irregular, please discuss the optimal time for this test with your doctor or our nursing staff. We may suggest you take a medication to induce a menses and shed a thickened professional soccer player so that the procedure can be properly timed and that excessive professional soccer player does not prevent a clear view of the uterine cavity. DO I NEED PAIN RELIEF FOR THIS TEST? The level of pain experienced during the HyCoSy is variable, but most women experience only mild tomoderate cramping period-type discomfort during the test. If you do not have an allergy to ibuprophen, we suggest you take two (200 mg) tablets 60 minutes before the procedure, to minimize discomfort. No anesthetic is required for this procedure. DO I NEED A FULL BLADDER FOR THIS TEST? You do not need a full bladder for this test. We will ask you to completely empty your bladder before the test begins. If you are booked for both a complete pelvic scan and a HyCoSy, the pelvic scan will be performed first, followed by the HyCoSy procedure. You can eat and drink normally before and after the test. HOW IS HYCOSY PERFORMED? The first part of the HyCoSy is like the first part of a pap smear, with a vaginal speculum gently inserted into the vagina to visualize the cervix. The cervix is then cleansed with antiseptic solution to decrease the risk of infection. A thin flexible balloon catheter is inserted through the opening of the cervix, so that the catheter lies within the endometrial cavity. Inserting the intrauterine catheter does not usually cause discomfort. A tiny balloon at the tip of the catheter is slowly inflated with saline-this is necessary to stop fluid leaking back out through the cervix during the test. Inflating this tiny balloon can cause some cramping. The vaginal speculum is removed, with the ca theter remaining in the uterus. Next, the transvaginal ultrasound (internal scan through the vagina) is used to image the uterus. Initially, a small amount of sterile saline is introduced into the endometrial cavity through the catheter, and the uterine cavity is inspected. This saline distends the endometrial cavity, allowing assessment of the contour and shape of the cavity. The doctor will be looking for such problems as endometrial polyps, submucosal fibroids, and congenital uterine abnormalities (such as a uterine septum). Next, a small amount of contrast agent (either agitated saline/air mixture, or a Foam-EX Foam) willbe introduced through the catheter. The doctor will be looking at both fallopian tubes, to see if the tubes are patent. If the contrast can be seen flowing through each tube, and spilling out the endof the tube around the area of the ovaries, the tubes are patent. The transvaginal ultrasound and catheter are removed at the end of the procedure. WHAT ARE THE RISKS OF HYCOSY? HyCoSy is a safe and well-tolerated procedure for the assessment of tubal patency. Infection of theuterus/pelvis is not common following this procedure, but it may occur. You should contact either your referring doctor or our practice immediately if you have the following symptoms: Persistent or foul-smelling vaginal discharge Increasing lower abdominal pain Unexplained Fever Generally unwell Such symptoms may indicate an infection requiring antibiotics. If you have a history of pelvic infection or in special circumstances, the provider may give you antibiotics to prevent pelvic infection. Please tell the doctor before your procedure begins if you have a history of pelvic infection, or another reason for antibiotic pre-treatment. Antibiotics are otherwise not routinely given during this test. WHAT SHOULD I DO AFTER THE PROCEDURE? You should wear a sanitary pap after the procedure. There may be some persistent vaginal discharge for a few hours, as the fluid used in the test will leak out the vagina. This discharge is sometimesblood stained so do not be alarmed if this occurs. Our practice will give you a sanitary pad to usefollowing the procedure. HOW WILL I FEEL AFTER THE PROCEDURE? Most women do not find the test too uncomfortable. Most women experience only mild to moderate cramping period-type pain during the test, but this usually subsides once the test is completed. You should be able to drive and resume normal daily activities after the test. Occasionally women have moresevere pain, and do not feel up to driving or returning to work. If you are concerned about how youwill feel after the test, you may consider have a friend drive you home, or having the day off work. You can eat and drink normally after the procedure. WHEN ARE THE RESULTS AVAILABLE? The ultrasound doctor will discuss your results once the procedure has been completed (for example,whether the fallopian tubes appear patent). WHAT OTHER TESTS SHOULD I HAVE? Sometimes the fallopian tubes (either one or both tubes) are not seen during the HyCoSy procedure. This may be due to: Spasm of the tubal opening which temporarily prevents the flow of contrast from the uterus into thetube Permanent tubal occlusion (blockage), secondary to an underlying tubal or pelvic problem (such as scar tissue) Technical factors may hinder visibility during the ultrasound, such as uterine fibroids, and bowel gas in the pelvis. It is important to remember that HyCoSy is simply one test used to investigate infertility. NeitherHyCoSy nor traditional HSG provide definitive answers in all women, making other investigations sometimes necessary. You referring provider will decide if you may need to have further investigations or procedures such as laparoscopy. documented in this encounter Ordered Prescriptions Prescription Sig Dispense Quantity Refills Last Filled Start Date End Date Mefenamic Acid 250 mg capsule Take 250 mg by mouth every 6 hours as needed for Pain. Take for 3-4 days at a time Take around the time of your expected period 30 Cap 1 04/07/2019 9 documented in this encounter Discharge Disposition Disposition Code Departure Means Destination Auto Discharge documented in this encounter Progress Notes * Jose David Pearson MD - 04/07/2019 1545 EDT REPRODUCTIVE ENDOCRINOLOGY & INFERTILITY NEW PATIENT CONSULT Subjective: CC: Chief Complaint Patient presents with ??? Advice Only Consult requested by: Patient Jonathon Hall is a 34 y.o. female who presents for fertility discussion after tubal ligation. HPI - Patient had all her pregnancies with a previous partner, now and re- - Partner (see details below) also has a child with a previous partner - Patient underwent laparoscopic BTL in 2008 with Filshie clips placed bilaterally - Patient and current partner interested in one more child together - No issues with infertility in either patient or partner - Insurance does not cover tubal reversal surgery, but does cover up to $50,000 of infertility treatments Menstrual and Endocrine History LMP Patient's last menstrual period was 04/03/2019 (exact date). Menses regular Shortest Interval 23 days Longest Interval 25 days Duration of flow 3 days Heavy Menses no Dysmenorrhea no Amenorrhea no Hirsutism no Galactorrhea no Obstetrical History 1st at 35wk after PROM 2nd SAB, passed spontaneously 3rd IOL at 37wk for LGA fetus Gynecologic History Last PAP 2016, normal per pt Previous abdominal or pelvic surgery no Pelvic Pain no Endometriosis no Hot Flashes no CONRADO Exposure unknown Abnormal Pap Yes as a teenager Cervix Cryo/cone No; previous laser ablation as teenager STD no PID no Infertility and Endocrine Studies BBT no Ovulation Predictor Kit No, but pt usually with Mittelschmerz HSG no Laparoscopy no Hormonal Studies no Semen analysis no Other Studies no Meds no Other Therapies no Antral Follicle Count no Sexual History Dyspareunia no Couple is having intercourse with adequate frequency to maximize chance of conception yes Use of Lubricant no There are no active problems to display for this patient. PMH PSH Past Medical History: Diagnosis Date ??? Abnormal Pap smear of cervix ??? Back pain upper back pain, (when did this problem start?) 3 yrs ago Past Surgical History: Procedure Laterality Date ??? ABDOMINOPLASTY ??? BREAST ENHANCEMENT SURGERY ??? CERVIX SURGERY ??? TUBAL LIGATION Social History Family history Social History Tobacco Use ??? Smoking status: Never Smoker ??? Smokeless tobacco: Never Used Substance Use Topics ??? Alcohol use: Yes Comment: 1 x pr wk ??? Drug use: Not on file No family history on file. Medications No current outpatient medications on file prior to visit. No current facility-administered medications on file prior to visit. 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 Wt Readings from Last 1 Encounters: 04/07/19 81.6 kg (180 lb) BMI: Body mass index is 29.95 kg/m??. GEN: alert, oriented to person/place/time CHEST: breathing unlabored PELVIC EXAM: Examination not indicated Assessment: 34 y.o. G1112 female with a history of bilateral tubal ligation, presents for a discussion of fertility options. Plan: Jonathon was seen today for advice only. Diagnoses and all orders for this visit: Fertility testing - ANTIMULLERIAN HORMONE ([facility]) REPROSOURCE; Future - TSH; Future - PROGESTERONE; Future - FSH; Future - ESTRADIOL, ADULTS; Future - WOOD FURNITURE ASSEMBLER US HYSTEROSONOGRAPHY Encounter for preconception consultation - CHLAMYDIA/N. 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 Advised that we would perform a laparotomy (ideally mini-laparotomy), resect the damaged portions of the tube including the Filshie clips, and re-anastamose the healthy ends of the tubes. If we identified any other pelvic cause for her pelvic pain (including adhesions or endometriosis) we could also address that at the time of the surgery. - Discussed that this procedure has an approximately 50% success rate, and that the greatest chancefor reproductive success would be in the 12 months following the procedure. Discussed that scarringcan occur in the Fallopian tubes subsequent to the procedure, and if she wanted to maximize her chances of fertility she should plan to have this procedure within 12 months of when she desires . - Discussed that the cost of a tubal reversal surgery would likely be $10,000 to $20,000, and may be more expensive than this. If patient would be interested in pursuing this route, recommended discussing her case with Patient Financial Services at [facility]. - Also discussed the possibility of IVF as a means of achieving with tubal factor infertility. Discussed the $7,000 global fee and briefly discussed the logistics of IVF testing, treatment and outcomes. Patient more interested in pursuing IVF given the cost comparator between this and tubal reversal surgery and her interest in one more child only. - Discussed that at this time we are booking IVF cycles into October 2019 for couples who have completed their testing - Will obtain infertility testing, including: - Day 3 FSH, E2 - Day 18 P4 (as patient's cycles are routinely 25 days in length) - [facility] - TSH - HyCoSy with AFC on CD#5-12 next cycle - Male partner ARAIZA - Will also obtain pre-conception labs, including: - Measles, rubella, varicella serology - Once all testing is completed, we will re-convene to discuss results and how best to proceed Above findings, assessment and plan discussed with Dr Victoria (JULIAN Attending) at the time of consultation. Jose David Pearson MD, PGY5 Fellow Reproductive Endocrinology & Infertility [facility] 04/07/2019 / 19:19 * Brynn Victoria MD, MD - 04/07/2019 4589 EDT Attestation statement: I discussed the patient with the resident/fellow at the time of the visit. Peg with the findings and the plan of care documented in the resident's/fellow's note. 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 GONORRHOEAE AMPLIFIED RNA, URINE Routine 04/07/2019 16:31 EDT Encounter for preconception consultation documented in this encounter Results * WOOD FURNITURE ASSEMBLER US HYSTEROSONOGRAPHY (05/04/2019 10:10 EDT) Anatomical Region Laterality Modality Other 05/04/2019 10:1 0 EDT 05/04/2019 10:31 EDT Narrative 05/04/2019 10:31 EDT Indication Uterine cavity assessment pre IVF. Assessment LMP on 04/28/2019. Day of cycle: 7. Uterus ======= Uterus: ?Appears normal Uterus position: ?? Retroverted Uterine malformations: None Myometrium: ?Appears normal Endometrium: ?? Trilaminar endometrium Uterus long ?8.1 cm Uterus ap ??3.9 cm Uterus tr ??5.5 cm Endometrial thickness, total ?? 6.0 mm Fibroids: ??No fibroids identified Polyps: ?No polyps identified Procedure SIS procedure: risks,benefits and procedure reviewed with the patient. Consent signed. Speculum exam,cervix washed X3 with betadine.Catheter placed and saline instilled under US observation. Patient tolerated procedure. Sonohysterogram shows normal cavity with no epithelial or intracavitary lesions Right Ovary Rt ovary: ??Visualized, normal appearance Outline: ?? Smooth Rt ovary morphology: ?? Normal Rt ovary D1 ?3.0 cm Rt ovary D2 ?1.8 cm Rt ovary D3 ?1.6 cm Rt ovary mean ??2.1 cm Rt ovary vol ?? 4.4 cm cubed Left Ovary Lt ovary: ??Visualized, normal appearance Outline: ?? Smooth Lt ovary morphology: ?? normal Lt ovary D1 ?3.5 cm Lt ovary D2 ?1.7 cm Lt ovary D3 ?1.6 cm Lt ovary mean ??2.3 cm Lt ovary vol ?? 5.0 cm cubed Impression Sonohysterogram - [id number] + [id number] The uterus is retroverted with a normal appearance to the myometrium and a trilaminar normal appearance to the endometrium. Both adnexa are normal. The uterine cavity contour is normal on sonohysterography. 3D coronal imaging of the uterus shows normal external contour, and normal I have personally reviewed and adjusted the images for the 3D rendering, as necessary, prior to interpretation. Follow-up Per ART team. Comment ========= Results discussed with patient. DATE OF SERVICE: 05/04/2019 Procedure Note Tamra Peck - 05/04/2019 Indication Uterine cavity assessment pre IVF. Assessment LMP on 04/28/2019. Day of cycle: 7. Uterus ======= Uterus: Appears normal Uterus position: Retroverted Uterine malformations: None Myometrium: Appears normal Endometrium: Trilaminar endometrium Uterus long 8.1 cm Uterus ap 3.9 cm Uterus tr 5.5 cm Endometrial thickness, total 6.0 mm Fibroids: No fibroids identified Polyps: No polyps identified Procedure SIS procedure: risks,benefits and procedure reviewed with the patient. Consent signed. Speculum exam,cervix washed X3 with betadine.Catheter placed and saline instilled under US observation. Patient tolerated procedure. Sonohysterogram shows normal cavity with no epithelial or intracavitary lesions Right Ovary Rt ovary: Visualized, normal appearance Outline: Smooth Rt ovary morphology: Normal Rt ovary D1 3.0 cm Rt ovary D2 1.8 cm Rt ovary D3 1.6 cm Rt ovary mean 2.1 cm Rt ovary vol 4.4 cm cubed Left Ovary Lt ovary: Visualized, normal appearance Outline: Smooth Lt ovary morphology: normal Lt ovary D1 3.5 cm Lt ovary D2 1.7 cm Lt ovary D3 1.6 cm Lt ovary mean 2.3 cm Lt ovary vol 5.0 cm cubed Impression Sonohysterogram - [id number] + [id number] The uterus is retroverted with a normal appearance to the myometrium and a trilaminar normal appearance to the endometrium. Both adnexa are normal. The uterine cavity contour is normal on sonohysterography. 3D coronal imaging of the uterus shows normal external contour, and normal I have personally reviewed and adjusted the images for the 3D rendering, as necessary, prior to interpretation. Follow-up Per ART team. Comment ========= Results discussed with patient. DATE OF SERVICE: 05/04/2019 Brynn Victoria MD IMG US WOOD FURNITURE ASSEMBLER ORDERABLES Final Result * CHLAMYDIA/N. GONORRHOEAE AMPLIFIED RNA, URINE (04/07/2019 16:31 EDT) Chlamydia Result Negative 04/09/20 19 13:42 EDT [facility] GC Result Negative 04/09/2019 13:42 EDT [facility] Comment: A first catch urine specimen is acceptable for detection of Gonorrhea and Chlamydia, but might detect up to 10% fewer infections when compared with vaginal and endocervical swab samples. Specimen of unknown material (specimen) URINE / Unknown 04/07/2019 16:31 EDT 04/08/2019 9:11 EDT Brynn Victoria MD MICROBIOLOGY - GENERAL EDGAR AMBROSIO Final Result [facility] [address] [place] [address] documented in this encounter Visit Diagnoses Diagnosis Fertility testing- Primary Encounter for preconception consultation Other procreative management counseling and advice History of tubal ligation Tubal ligation status documented in this encounter Discontinued Medications Medication Sig Discontinue Reason Start Date End Da te HYDROCODONE BIT/ACETAMINOPHEN (VICODIN ORAL) Take 0.5 Tabs by mouth as needed. Patient Stopped Taking 04/07/2019 ZOLPIDEM TARTRATE (AMBIEN ORAL) Take 1 Tab by mouth at bedtime. Patient Stopped Taking 04/07/2019 Mefenamic Acid 250 mg capsule Take 250 mg by mouth every 6 hours as needed for Pain. Take for 3-4 days at a time Take around the time of your expected period 04/07/2019 04/07/2019 documented as of this encounter Care Teams Vp Strategic Planning Relationship Specialty Start Date End Date Mary Montana MD [address] [place] [phone] PCP - General 04/05/19 10/27/22 Mary Montana MD [address] [place] [phone] 03/25/19 documented as of this encounter
--- OUTSIDE RECORDS SUMMARY | 2024-09-15 00:30 | XMS_ITS | Encounter Summary ---
Author Organization [facility] Address [address] [place] [address] Care Team Providers Care Academic Registrar Name Role Phone Mary Montana MD Unavailable Mary Montana MD Primary Care Provider [phone] Encounter Details Date Type Department Care Team (Late st Contact Info) Description 04/20/2019 Historical Results Only [facility] - [address] [address] Brynn Victoria MD [address] [facility], [facility] [address] [place] [address] Social History Tobacco Use Types [...] Procedure Name Priority Date/Time Associated Diagnosis Comments ZZZZANTIMULLERIAN HORMONE, S Routine 04/20/2019 8:50 EDT documented in this encounter Results * ANTIMULLERIAN HORMONE, S (04/20/2019 8:50 EDT) Antimullerian Hormone, S 1.8 0.9 - 9.5 ng/mL 04/22/2019 21:11 EDT [facility] Comment: ADDITIONAL INFORMATION The testing method is a manual immunoenzymatic assay manufactured by [employer]. ??Values obtained with different assay methods or kits may be different and cannot be used interchangeably. ??If this test is being ordered as a tumor marker, results cannot be interpreted as absolute evidence for the presence or absence of malignant disease. This test was developed and its performance characteristics determined by [facility] in a manner consistent with CLIA requirements. This test has not been cleared or approved by the U.S. Food and Drug Administration. Test Performed by: [facility] [place] [address] Wholesale Agronomist: Wan Rodriguez M.D. Ph.D.; CLIA# [id number] 04/20/2019 8:50 EDT 04/20/2019 8:50 EDT Narrative [facility] - 04/22/2019 21:11 EDT Does PT Have a Latex Allergy? NO Brynn Victoria MD CHEMISTRY & BLOOD GAS ORDER BETTINA Final Result [facility] documented in this encounter Visit Diagnoses Not on filedocumented in this encounter Care Teams Academic Registrar Relationship Specialty Start Date End Date Mary Montana MD [address] [place] [phone] PCP - General 04/05/19 10/27/22 Mary Montana MD [address] [place] [address] 03/25/19 documented as of this encounter
--- OUTSIDE RECORDS SUMMARY | 2024-09-15 00:30 | XMS_ITS | Encounter Summary ---
Author Organization [facility] Address [address] [place] [address] Care Team Providers Care Reception Specialist Name Role Phone Mary Montaan MD Primary Care Provider [phone] Encounter Details Date Type Department Care Team (Latest Contact Info) Description 09/21/2015 7:43 EST - 09/21/2015 23:59 EST Hospital Encounter [facility] [address] [place] [address] Unknown, Provider, Discharge Disposition: Home or Self [...] Code Departure Means Destination Home or Self Residential documented in this encounter Plan of Treatment Not on file documented as of this encounter Visit Diagnoses Not on filedocumented in this encounter Care Teams Reception Specialist Relationship Specialty Start Date End Date Mary Montaan MD [address] [place] [phone] PCP - General 10/15/11 03/24/19 documented as of this encounter
--- OUTSIDE RECORDS SUMMARY | 2024-09-15 00:30 | XMS_ITS | Encounter Summary ---
Author Organization [facility] Address [address] [place] [address] Care Team Providers Care Sql Server Dba Developer Name Role Phone Mary Montana MD Unavailable Mary Montana MD Primary Care Provider [phone] Reason for Visit * Reason Onset Date Comments Results 05/14/2019 Encounter Details Date Type Department Care Team (Late st Contact Info) Description 05/14/2019 Telephone [facility] Reproductive Medicine & Inf[facility] Center - [facility] [address] [place], [place] [phone] Brynn Yates RN Results Social History Tobacco Use Types [...] Miscellaneous Notes * Telephone Encounter - Brynn Yates, TANIA - 05/14/2019 1144 EDT [facility] Called back and advised that Dr. Pearson had called to discuss partner's normal test results. Also reviewed her test results, and advised she begin 2000 IU Vitamin D3 supplement. She is agreeable to this. She asked if they had been placed on the IVFschedule yet, I advised she had not but we would call her when she is placed. No further questions at this time. Component Latest Ref Rng & Units 05/04/2019 WBC 4.0 - 12.4 K/cmm 7.21 RBC 3.86 - 5.04 M/cmm 4.93 Hemoglobin 11.6 - 15.2 gm/dl 13.1 HCT 34.9 - 44.4 % 40.2 MCV 81 - 98 fl 82 MCH 26.7 - 33.3 pg 26.6 (L) MCHC 32.1 - 35.9 gm/dl 32.6 RDW-CV <14.7 % 12.7 RDW-SD <50.4 fl 37.7 PLT 141 - 377 K/cmm 334 MPV 9.5 - 12.7 fl 11.1 HIV 1/2 Antibody Negative Negative Hepatitis B Core Antibody Negative Negative Hepatitis B Surface Antigen Negative Negative Syphilis Serology Negative Hep C Ab w Rfx PCR Negative Negative ABO O Rh Factor Positive Antibody Screen Negative Specimen Expires: 05/07/2019 @ 23:59 25OH Vitamin D Tot 30 - 100 ng/ml 28.6 (L) documented in this encounter Plan of Treatment Not on file documented as of this encounter Visit Diagnoses Not on filedocumented in this encounter Care Teams Sql Server Dba Developer Relationship Specialty Start Date End Date Mary Montana MD [address] [place] [phone] PCP - General 04/05/19 10/27/22 Mary Montana MD [address] [place] [phone] 03/25/19 documented as of this encounter
--- OUTSIDE RECORDS SUMMARY | 2024-09-15 00:30 | XMS_ITS | Encounter Summary ---
Author Organization [facility] Address [address] [place] [address] Care Team Providers Care Computer Tester Name Role Phone Mary Montana MD Primary Care Provider [phone] Unknown, Provider Primary Care Provider Unava Mary Madison MD Unavailable Mary Montana MD Primary Care Provider [phone] Encounter Details Date Type Department Care Team (Late st Contact Info) Description 06/21/2016 Historical Results Only [facility] - Main [address] [address] Elizabeth Menjivar PA-C [address] [place] [phone] Social History Tobacco Use Types Packs/Day [...] Procedure Name Priority Date/Time Associated Diagnosis Comments PHARYNGITIS SCREEN - CV Routine 06/21/2016 8:40 EST GRP A STREP POC - CV Routine 06/21/2016 7:27 EST documented in this encounter Results * PHARYNGITIS SCREEN - [facility] (06/21/2016 8:40 EST) PHARYNGITIS SCREEN - [facility] 06/23/2016 10:27 EST [facility] PHARYNGITIS SCREEN - CV NO GROUP A STREP ISOLATED 06/23/2016 10:27 EST [facility] 06/21/2016 8:40 EST 06/21/2016 13:49 EST Narrative [facility] - 06/23/2016 10:27 EST Does PT Have a Latex Allergy? NO Elizabeth Tiara PA-C CHEMISTRY & BLOOD GAS ORDERAB LES Final Result Performing Organization Address City/[facility]/ZIP Co de Phone Number [facility] * GRP A STREP POC - [facility] (06/21/2016 7:27 EST) Pathologist [facility] GRP A STREP POC - [facility] NEGATIVE NEGATIVE 06/24/2016 7:29 EST [facility] 06/21/2016 7:27 EST 06/21/2016 7:27 EST Elizabeth Tiara PA-C CHEMISTRY & BLOOD GAS ORDERAB LES Final Result Performing Organization Address City/[facility]/ZIP Co de Phone Number [facility] documented in this encounter Visit Diagnoses Not on filedocumented in this encounter Care Teams Computer Tester Relationship Specialty Start Date End Date Mary Montana MD [address] [place] [phone] PCP - General 10/15/11 03/24/19 Unknown, Provider, [address] [place] [address] PCP - General 03/25/19 9 Mary Montana MD [address] [place] [phone] PCP - General 04/05/19 10/27/22 Mary Montana MD [address] [place] [phone] 03/25/19 documented as of this encounter
--- OUTSIDE RECORDS SUMMARY | 2024-09-15 00:31 | XMS_ITS | Encounter Summary ---
Author Organization [facility] Address [address] [place] [address] Care Team Providers Care School Operations Manager Name Role Phone Mary Montana MD Primary Care Provider [phone] Reason for Visit * Reason Onset Date Comments Appointment Related 10/16/2011 Encounter Details Date Type Department Care Team (Late st Contact Info) Description 10/16/2011 Telephone [facility] Spine Program - [address] [place], [place] [phone] Leanna Leo, PAWalterC Appointment Related Social History Tobacco Use Types Packs/Day Years Used Date Smoking Tobacco: Never Alcohol Use Standard Drinks/Week Comments Yes 0 (1 standard drink = 0.6 oz pur e alcohol) Comments Unknown Sex and Gender Information Value Date Recorded Sex Assigned at Not on file Legal Sex Female 18:26 EST Gender Identity Female 10/03/2019 12:19 EST Sexual Orientation Not on file documented as of this encounter Miscellaneous Notes * Telephone Encounter - Rakesh Stein - 10/16/2011 0959 EST Left a message with the time and date of her appointment with [facility] for 10/30 @9:00am. Requested her x-rays be sent to them and will fax all notes to them as well. documented in this encounter Plan of Treatment Not on file documented as of this encounter Visit Diagnoses Not on filedocumented in this encounter Care Teams School Operations Manager Relationship Specialty Start Date End Date Mary Montana MD [address] [place] [phone] PCP - General 10/15/11 03/24/19 documented as of this encounter
--- OUTSIDE RECORDS SUMMARY | 2024-09-15 00:31 | XMS_ITS | Encounter Summary ---
Author Organization [facility] Address [address] [place] [address] Care Team Providers Care Acrylic Fabricator Name Role Phone Mary Montana MD Primary Care Provider [phone] Encounter Details Date Type Department Care Team (Latest Contact Info) Description 08/05/2013 10:48 EST - 08/05/2013 23:59 EST Hospital Encounter [facility] [address] [place] [address] Unknown, Provider, Discharge Disposition: Home or Self [...] Code Departure Means Destination Home or Self Snf documented in this encounter Plan of Treatment Not on file documented as of this encounter Visit Diagnoses Not on filedocumented in this encounter Care Teams Acrylic Fabricator Relationship Specialty Start Date End Date Mary Montana MD [address] [place] [phone] PCP - General 10/15/11 03/24/19 documented as of this encounter
--- OUTSIDE RECORDS SUMMARY | 2024-09-15 00:31 | XMS_ITS | Encounter Summary ---
Author Organization [facility] Address [address] [place] [address] Care Team Providers Care Glass Block Bender Name Role Phone Mary Montana MD Primary Care Provider [phone] Unknown, Provider Primary Care Provider Unava ilable Mary Montana MD Unavailable Mary Montana MD Primary Care Provider Encounter Details Date Type Department Care Team (Late st Contact Info) Description 09/21/2015 Historical Results Only [facility] Radiology Results [address] [place], [place] [phone] Anuja Chavira, PA [address] [place] [phone] Social History Tobacco Use Types Packs/Day Years [...] Name Priority Date/Time Associated Diagnosis Comments US BREAST LIMITED UNILATERAL 09/21/2015 9:52 EST documented in this encounter Results * US BREAST LIMITED UNILATERAL (09/21/2015 9:52 EST) Anatomical Region Laterality Modality Breast Other 09/21/2015 9:52 EST Narrative 09/21/2015 13:55 EST ? EXAM: ULTRASOUND/UNILATERAL BREAST LIMITE EX. D/ (0952) ? CLINICAL INFORMATION: ? N64.4 RIGHT BREAST PAIN ?? 2-3 cm (R) LATERAL ? TO NIPPLE. H/O IMPLIANTS 06/23 ? COMPARISON: ??None ? INDICATION: ??Right breast pain 2-3 cm lateral from nipple. History of ? bilateral saline breast implants in 2012. ? TECHNIQUE: ?? The outer half and retroareolar portion of the right ? breast was scanned. ? FINDINGS: ??No sonographic abnormality is identified, including in the ? area of pain at 10 o'clock, 3cm out from the nipple. The saline breast ? implant appears intact. ? IMPRESSION: ??Right breast, BI-RADS category 2, benign. No sonographic ? abnormality identified in the area of pain. Saline breast implant ? intact. ? FINAL ASSESSMENT: ??DIAGNOSTIC RIGHT BREAST ULTRASOUND - Category 2 - ?Benign findings. ? RECOMMENDATION: ??Follow-up with referring provider as negative imaging ? results should never preclude further evaluation and/or biopsy of any ? clinically suspicious palpable lump. I suspect patient's symptoms may ? represent painful scarring given her history of difficulty following ? her breast implant. The differential also includes focal mastitis. If ? her symptoms persist, breast MR may be helpful in a young patient with ? implants for further evaluation. ? Dr Mesfin Whitten discussed these findings and recommendations with ? the patient immediately following the examination. ? BBL:[email or web address] ?Reported By: Mesfin Whitten MD ? CC: ? Transcribed Date/Time: 09/21/2015 (1355) ? Umbrella Finisher: MARCE ? Printed Date/Time: 01/21/2019 (1640) ? PAGE 1 ? Signed Report ? Procedure Note Mesfin Whitten MD - 06/16/2019 EXAM: ULTRASOUND/UNILATERAL BREAST LIMITE EX. D/ (0952) CLINICAL INFORMATION: N64.4 RIGHT BREAST PAIN 2-3 cm (R) LATERAL TO NIPPLE. H/O IMPLIANTS 06/23 COMPARISON: None INDICATION: Right breast pain 2-3 cm lateral from nipple. Historyof bilateral saline breast implants in 2012. TECHNIQUE: The outer half and retroareolar portion of the right breast was scanned. FINDINGS: No sonographic abnormality is identified, including inthe area of pain at 10 o'clock, 3cm out from the nipple. The salinebreast implant appears intact. IMPRESSION: Right breast, BI-RADS category 2, benign. Nosonographic abnormality identified in the area of pain. Saline breast implant intact. FINAL ASSESSMENT: DIAGNOSTIC RIGHT BREAST ULTRASOUND - Category 2- Benign findings. RECOMMENDATION: Follow-up with referring provider as negativeimaging results should never preclude further evaluation and/or biopsy ofany clinically suspicious palpable lump. I suspect patient's symptomsmay represent painful scarring given her history of difficultyfollowing her breast implant. The differential also includes focal mastitis.If her symptoms persist, breast MR may be helpful in a young patientwith implants for further evaluation. Dr Mesfin Whitten discussed these findings and recommendations with the patient immediately following the examination. BBL:[email or web address] Reported By: Mesfin Whitten MD CC: Transcribed Date/Time: 09/21/2015 (2991) Umbrella Finisher: MARCE Printed Date/Time: 01/21/2019 (2832) PAGE 1 Signed Report us Anuja MARTINS IMG US ORDERABLES Final Result documented in this encounter Visit Diagnoses Not on filedocumented in this encounter Care Teams Glass Block Bender Relationship Specialty Start Date End Date Mary Montana MD [address] [place] [phone] PCP - General 10/15/11 03/24/19 Unknown, Provider, [address] [place] [phone] PCP - General 03/25/19 9 Mary Montana MD [address] [place] [phone] PCP - General 04/05/19 10/27/22 Mary Montana MD [address] [place] [phone] 03/25/19 documented as of this encounter
--- OUTSIDE RECORDS SUMMARY | 2024-09-15 00:31 | XMS_ITS | Encounter Summary ---
Author Organization [facility] Address [address] [place] [address] Care Team Providers Care Acid Patroller Name Role Phone Wan Everett MD Primary Care Provider [phone] Mary Montana MD Primary Care Provider [phone] Unknown, Provider Primary Care Provider Unava ilable Mary Montana MD Unavailable Mary Montana MD Primary Care Provider [phone] Encounter Details Date Type Department Care Team (Late st Contact Info) Description 09/15/2009 Historical Results Only [facility] - Main [place] [address] [place] [address] Florin Singh MD [facility] [address] [place] [address] Social History Tobacco Use Types Packs/Day Years [...] Date/Time Associated Diagnosis Comments SURGICAL PATHOLOGY Routine 09/15/2009 documented in this encounter Results * SURGICAL PATHOLOGY (09/15/2009) 09/15/2009 09/15/2009 10: 34 EST Narrative [facility] - 09/18/2009 12:55 EST ----- ------- Name: JONATHON RHODES ?: [birth year] ?Age/Sex: 34/F ?Unit#: [id number] ? Loc: END ? Status: REG CLI ?? Reg Date: 09/15/09 ? Pt.Phone Number: ? ----- ------- Specimen: [id number] ?STATUS: SOUT ?Spec Date:09/15/09 ? Physician Copies: ?Florin Singh MD ? Tissues: A ?? Gastrointestinal Tract (DUODENUM) ?Mary Montana MD ? CPT: 96451 ?? Units: ??1 ?FINAL DIAGNOSIS ? Duodenum, biopsy; ? - No pathologic features. ? - No histologic evidence of celiac disease. ? GROSS DESCRIPTION ? Received in [place]'s labeled with the patient's name and duodenum bx are four ? strips of mucosa ranging in length from 0.4 to 0.6 cm, e.s. 1. CP ?? PREOP DX/CLINICAL HISTORY ?Abdominal pain, bloating Signed ____(signature on file)____ Mahi Little M.D. 09/18/09 By the signature above, the attending physician certifies that he/she has personally conducted a gross and/or microscopic examination of the described specimens and rendered or confirmed the above diagnosis. Test Performed by [facility], [address] [place] [address] Automatic Pinsetter Adjuster: Mahi Little MD PHD ----- ------- us Florin Singh MD PATHOLOGY ORDERABLES Final Resul t [facility] documented in this encounter Visit Diagnoses Not on filedocumented in this encounter Care Teams Acid Patroller Relationship Specialty Start Date End Date Wan Everett MD [address] [place] [phone] PCP - General 09/18/11 10/14/11 Mary Montana MD [address] [place] [phone] PCP - General 10/15/11 03/24/19 Unknown, Provider, [address] [place] [phone] PCP - General 03/25/19 9 Mary Montana MD [address] [place] [phone] PCP - General 04/05/19 10/27/22 Mary Montana MD [address] [place] [phone] 03/25/19 documented as of this encounter
--- OUTSIDE RECORDS SUMMARY | 2024-09-15 00:31 | XMS_ITS | Encounter Summary ---
Author Organization [facility] Address [address] [place] [address] Care Team Providers Care Handhole Machine Operator Name Role Phone Wan Everett MD Primary Care Provider [phone] Encounter Details Date Type Department Care Team (Late st Contact Info) Description 10/14/2011 Results Only Imaging [facility] Spine Program [place] [address] Leanna Leo PA-C Social History Tobacco Use Types Packs/Day Years Used Date Smoking Tobacco: Never Assessed Comments Unknown Sex and Gender Information Value Date Recorded Sex Assigned at Not on file Legal Sex Female 18:26 EST Gender Identity Female 10/03/2019 12:19 EST Sexual Orientation Not on file documented as of this encounter Plan of Treatment Pending Results Name Type Priority Associated Diagnoses Date /Time OUTSIDE IMAGES - OTHER NEURO Imaging 10/14/2011 17:41 EST documented as of this encounter Visit Diagnoses Not on filedocumented in this encounter Care Teams Handhole Machine Operator Relationship Specialty Start Date End Date Wan Everett MD [address] [place] [phone] PCP - General 09/18/11 10/14/11 documented as of this encounter
--- OUTSIDE RECORDS SUMMARY | 2024-09-15 00:31 | XMS_ITS | Encounter Summary ---
Author Organization [facility] Address [address] [place] [address] Care Team Providers Care Taper/Finisher Name Role Phone Mary Montana MD Primary Care Provider [phone] Reason for Visit * Reason Onset Date Comments Other 07/09/2012 Encounter Details Date Type Department Care Team (Late st Contact Info) Description 07/09/2012 Telephone [facility] Reproductive Medicine & Infertility Center - [facility] [address] [place] [address] Rosy Luz, RN Other Social History Tobacco Use Types Packs/Day [...] encounter Miscellaneous Notes * Telephone Encounter - Rosy Luz RN - 07/09/2012 1646 EST Call from pt. She is interested in tubal reversal. She will have her operative report faxed to us. Last name at that time might have been under [place] or [place]. documented in this encounter Plan of Treatment Not on file documented as of this encounter Visit Diagnoses Not on filedocumented in this encounter Care Teams Taper/Finisher Relationship Specialty Start Date End Date Mary Montana MD [address] [place] [phone] PCP - General 10/15/11 03/24/19 documented as of this encounter
--- OUTSIDE RECORDS SUMMARY | 2024-09-15 00:31 | XMS_ITS | Encounter Summary ---
Author Organization [facility] Address [address] [place] [address] Care Team Providers Care Highway Landscape Architect Name Role Phone Mary Montana MD Primary Care Provider [phone] Encounter Details Date Type Department Care Team (Late st Contact Info) Description 10/18/2011 Abstract [facility] Spine Program - [facility] [place] [address] Leanna Leo PAWaltreC Social History Tobacco Use Types Packs/Day Years [...] filedocumented in this encounter Care Teams Highway Landscape Architect Relationship Specialty Start Date End Date Mary Montana MD [address] [place] [phone] PCP - General 10/15/11 03/24/19 documented as of this encounter
--- OUTSIDE RECORDS SUMMARY | 2024-09-15 00:31 | XMS_ITS | Encounter Summary ---
Author Organization [facility] Address [address] [place] [address] Care Team Providers Care Hr Administrative Assistant Name Role Phone Mary Montana MD Primary Care Provider [phone] Reason for Referral * Consult (Routine/Next Available) - Closed Specialty Diagnoses / Procedures Referred By Kenn deluna Referred To Contact Diagnoses Shoulder pain Leanna Leo PA-C [address] [place] [address] Referral ID Status Reason Start Date Expiration Date V isits Requested Visits Authorized [id number] Closed Specialty Services Required 10/15/2011 1 1 Question Answer Reason for Request: Right shoulder pain Reason for Visit * Reason Comments Back Pain Encounter Details Date Type Department Care Team (Late st Contact Info) Description 10/15/2011 14:00 EST Office Visit [facility] - [address] [place] [address] Leanna Leo PA-C Neck pain (Primary Dx); Thoracic back pain; Shoulder pain Social History Tobacco Use Types Packs/Day [...] Sign Reading Time Taken Comments Blood Pressure - - Pulse - - Temperature - - Respiratory Rate - - Oxygen Saturation - - Inhaled Oxygen Concentration - - Weight 69.4 kg (153 lb) 10/15/2011 1356 EST Height 165.1 cm (5' 5) 10/15/2011 1356 EST Body Mass Index 25.46 10/15/2011 1356 EST documented in this encounter Progress Notes * Leanna Begum PA - 10/15/2011 1440 EST Jonathon Bautista is being seen as a consultation from Dr. Everett. Chief Complaint Patient presents with ??? Back Pain The primary encounter diagnosis was Neck pain. A diagnosis of Thoracic back pain was also pertinentto this visit. KOFI Holt is a 26-year-old female who presents with pain located under the right scapula. She also experiences some posterior shoulder pain when she is using her right upper extremity such as with painting. She notes that the ribs around her right scapula will not stay in place. This has been going on for 3 years and starting when she was power lifting. She notes that there was a chiropractor on site at competitions who would frequently adjust her ribs. She also experiences some right distal lateral neck pain. She does experience pain that radiates through the right upper extremity, but this only occurs when she is using her right shoulder or when her ribs are being manipulated. Vicodin, Flexeril and massage do alleviate her pain. She has done 6 months of physical therapy without relief and currently sees a chiropractor one to two times a week. She has not done any acupuncture or had any injections. She denies any pain that wraps around her chest. There is no problem list on file for this patient. History reviewed. No pertinent past medical history. Past Surgical History Procedure Date ??? Cervix surgery History Substance Use Topics ??? Smoking status: Never Smoker ??? Smokeless tobacco: Not on file ??? Alcohol Use: Yes History reviewed. No pertinent family history. Current Outpatient Prescriptions Medication Sig Dispense Refill ??? ZOLPIDEM TARTRATE (AMBIEN ORAL) Take 1 Tab by mouth at bedtime. ??? HYDROCODONE BIT/ACETAMINOPHEN (VICODIN ORAL) Take 0.5 Tabs by mouth as needed. No Known Allergies Review of Systems Constitutional: Positive for activity change. HENT: Positive for neck pain and neck stiffness. Eyes: Negative. Respiratory: Negative. Cardiovascular: Negative. Gastrointestinal: Negative. Genitourinary: Negative. Musculoskeletal: Positive for back pain. Skin: Negative. Neurological: Negative. Hematological: Negative. Psychiatric/Behavioral: Negative. Physical Exam Constitutional: She is oriented to person, place, and time. She appears well- developed and well-nourished. HENT: Head: Normocephalic and atraumatic. Eyes: EOM are normal. Cardiovascular: Normal rate. Pulmonary/Chest: Effort normal. Musculoskeletal: Palpable tenderness just inferior to the right scapula. Normal gait. Full cervical ROM. 5/5 arm abduction, elbow flexion/extension, wrist flexion/extension, shoulder external rotation, finger abduction, and finger flexion bilaterally. Positive right neer and hawkin's signs with posterior shoulder pain. Negative lift-off b/l. Neurological: She is alert and oriented to person, place, and time. 2+ biceps, triceps, brachioradialis reflexes b/l. Upper extremity sensation to light touch is intact b/l. Negative Spurling's manuever b/l. Negative Oseguera's sign. Skin: Skin is warm and dry. No rashes, lesions, or hair bradley. Psychiatric: She has a normal mood and affect. Ortho Exam Neurologic Exam Mental Status Oriented to person, place, and time. Cranial Nerves CN III, IV, Extraocular motions are normal. AP, lateral, flexion, extension radiographs of the cervical spine reveal a small subluxation of C2 over C3 and C3 over C4. There is a reversal of the normal cervical lordosis with the apex centered at C4-5. In flexion, there is normal alignment and also with extension. Disk spaces are well maintained. AP and lateral radiographs of the thoracic spine reveal a mild curve to the left through the distalthoracic spine and another compensatory curve to the right through the thoracolumbar region. There is a normal thoracic kyphosis and disk spaces are well maintained. Assessment/Plan: This is a 26-year-old female that presents with right posterior shoulder and scapular pain. I am not sure that this is associated with her ribs. The posterior shoulder pain could be related to some intrinsic shoulder pathology as this is exacerbated with lifting and she has a history of power lifting. At this time, I think it would be appropriate to refer her for her right shoulder. She would like to be seen at [facility]. She will follow up with me on an as-needed basis with activities as tolerated. Other Orders Placed This Visit Procedures ??? CERVICAL SPINE 4 OR MORE VIEWS ??? THORACIC SPINE 2-3 VIEWS documented in this encounter Plan of Treatment Scheduled Referrals Name Type Priority Associated Diagnoses Order Schedule AMB CONSULT ORTHOPEDICS Outpatient Referral Routine Shoulder pain Ordered: 10/15/2011 documented as of this encounter Procedures Procedure Name Priority Date/Time Associated Diagnosis Comments THORACIC SPINE 2-3 VIEWS Routine 10/15/2011 14:19 EST Thoracic back pain CERVICAL SPINE 4 OR MORE VIEWS Routine 10/15/2011 14:19 EST Neck pain documented in this encounter Results * THORACIC SPINE 2-3 VIEWS (10/15/2011 14:19 EST) Anatomical Region Laterality Modality Other 10/15/2011 14:1 9 EST 10/15/2011 16:29 EST Narrative 10/15/2011 16:29 EST CERVICAL SPINE 4 VIEWS THORACIC SPINE 2 VIEWS October 15, 2011 Indication: Neck pain. Right thoracic back pain. Comparison: None available. Technique: AP and lateral flexion, neutral and extension views of the cervical spine were obtained. AP and lateral views of the thoracic spine were obtained. Findings: Craniocervical and atlantoaxial alignment are anatomic. There is less than 2 mm of anterolisthesis of C2 on C3 and C3 on C4 on the flexion and neutral views with reduction and extension. Vertebral body heights are preserved. Disc space heights are relatively well-maintained. There may be mild uncovertebral spurring at the C4-C5 level. Marked facet hypertrophy is not appreciated. There is mild thoracolumbar curvature convex to the left at about T7-T8 and to the right at about T12-L1. AP alignment of the thoracic spine is anatomic. Vertebral body heights are preserved. There is mild disc space narrowing in the midthoracic spine consistent with disc degeneration. Procedure Note 10/15/2011 CERVICAL SPINE 4 VIEWS THORACIC SPINE 2 VIEWS October 15, 2011 Indication: Neck pain. Right thoracic back pain. Comparison: None available. Technique: AP and lateral flexion, neutral and extension views of the cervical spine were obtained. AP and lateral views of the thoracic spine were obtained. Findings: Craniocervical and atlantoaxial alignment are anatomic. There is less than 2 mm of anterolisthesis of C2 on C3 and C3 on C4 on the flexion and neutral views with reduction and extension. Vertebral body heights are preserved. Disc space heights are relatively well-maintained. There may be mild uncovertebral spurring at the C4-C5 level. Marked facet hypertrophy is not appreciated. There is mild thoracolumbar curvature convex to the left at about T7-T8 and to the right at about T12-L1. AP alignment of the thoracic spine is anatomic. Vertebral body heights are preserved. There is mild disc space narrowing in the midthoracic spine consistent with disc degeneration. us Leanna Leo PA-C IMG DIAGNOSTIC IMAGING ORD ERABLES Final Result * CERVICAL SPINE 4 OR MORE VIEWS (10/15/2011 14:19 EST) Anatomical Region Laterality Modality Other 10/15/2011 14:1 9 EST 10/15/2011 16:29 EST Narrative 10/15/2011 16:29 EST CERVICAL SPINE 4 VIEWS THORACIC SPINE 2 VIEWS October 15, 2011 Indication: Neck pain. Right thoracic back pain. Comparison: None available. Technique: AP and lateral flexion, neutral and extension views of the cervical spine were obtained. AP and lateral views of the thoracic spine were obtained. Findings: Craniocervical and atlantoaxial alignment are anatomic. There is less than 2 mm of anterolisthesis of C2 on C3 and C3 on C4 on the flexion and neutral views with reduction and extension. Vertebral body heights are preserved. Disc space heights are relatively well-maintained. There may be mild uncovertebral spurring at the C4-C5 level. Marked facet hypertrophy is not appreciated. There is mild thoracolumbar curvature convex to the left at about T7-T8 and to the right at about T12-L1. AP alignment of the thoracic spine is anatomic. Vertebral body heights are preserved. There is mild disc space narrowing in the midthoracic spine consistent with disc degeneration. Procedure Note 10/15/2011 CERVICAL SPINE 4 VIEWS THORACIC SPINE 2 VIEWS October 15, 2011 Indication: Neck pain. Right thoracic back pain. Comparison: None available. Technique: AP and lateral flexion, neutral and extension views of the cervical spine were obtained. AP and lateral views of the thoracic spine were obtained. Findings: Craniocervical and atlantoaxial alignment are anatomic. There is less than 2 mm of anterolisthesis of C2 on C3 and C3 on C4 on the flexion and neutral views with reduction and extension. Vertebral body heights are preserved. Disc space heights are relatively well-maintained. There may be mild uncovertebral spurring at the C4-C5 level. Marked facet hypertrophy is not appreciated. There is mild thoracolumbar curvature convex to the left at about T7-T8 and to the right at about T12-L1. AP alignment of the thoracic spine is anatomic. Vertebral body heights are preserved. There is mild disc space narrowing in the midthoracic spine consistent with disc degeneration. us Leanna Leo PA-C IMG DIAGNOSTIC IMAGING ORD ERABLES Final Result documented in this encounter Visit Diagnoses Diagnosis Neck pain- Primary Cervicalgia Thoracic back pain Pain in thoracic spine Shoulder pain Pain in joint, shoulder region documented in this encounter Historical Medications * This list may reflect changes made after this encounter. HYDROCODONE BIT/ACETAMINOPHEN (VICODIN ORAL) Take 0.5 Tabs by mouth as needed. 04/07/2019 ZOLPIDEM TARTRATE (AMBIEN ORAL) Take 1 Tab by mouth at bedtime. 04/07/2019 added in this encounter Care Teams Hr Administrative Assistant Relationship Specialty Start Date End Date Mary Montana MD [address] [place] [phone] PCP - General 10/15/11 03/24/19 documented as of this encounter
--- NOTE | 2024-09-15 09:16 | DI.MAMMO_ITS ---
Exam(s) MAMMO SCREENING EXAM: MAMMO SCREENING CLINICAL HISTORY: screening,z12.39 TECHNIQUE: Mammograms were interpreted according to the usual protocol including computer analysis w [employer] CAD system, tomosynthesis and C-view imaging. COMPARISON: No exams were available for comparison. Baseline examination FINDINGS: The breasts are composed of scattered fibroglandular densities, Breast Density category B. No suspicious masses or suspicious microcalcifications are seen. No skin thickening or abnormal axillary lymph nodes are seen. There surgical clips at the left chest wall. There has been no significant change from prior exams. IMPRESSION: BI-RADS Category 1, Negative mammogram Yearly screening mammography is recommended. Breast Density - Category B, scattered fibroglandular densities. A negative radiographic report should not delay biopsy if a dominant or clinically suspicious mass is present. Up to ten percent of cancers are not identified on mammography. A negative report may reinforce clinical impression. Adenosis and dense breasts may obscure an underlying neoplasm. False positive reports average 6 to 10%. Patient will receive a letter notifying them of these results.
== END 2024-09-15 00:43 ==
LOC: DI 00:23
PROVIDERS: Visit Provider Obstetrics & Gynecology
DX: Z12.31 Encounter for screening mammogram for malignant neoplasm of breast (principal); R92.323 Mammographic fibroglandular density, bilateral breasts
CPT/HCPCS: 77063; 77067

== ENCOUNTER 2024-10-25 11:53 | Outpatient (REF) | payer MEDICAID, SELFPAY | END 2024-10-25 11:54 | disposition home or self-care (01) | LOC: LBN 11:53 | PROVIDERS: Visit Provider Nurse Practitioner Women's Health | DX: N76.0 Acute vaginitis (principal) | CPT/HCPCS: 87480; 87510; 87660 ==

== ENCOUNTER 2024-11-18 15:18 | Outpatient (REF) | payer MEDICAID, SELFPAY | END 2024-11-18 15:19 | disposition home or self-care (01) | LOC: LBN 15:18 | PROVIDERS: Visit Provider Obstetrics & Gynecology | DX: N94.9 Unspecified condition associated with female genital organs and menstrual cycle (principal); R30.0 Dysuria | CPT/HCPCS: 87086; 87480; 87510; 87660 ==

== ENCOUNTER 2025-03-17 07:31 | Day surgery (SDC) | payer MEDICAID, SELFPAY ==
[2025-03-17 07:44] VITALS: BP 114/94; PULSE 74; RESP 16; TEMP 36.2; O2SAT 98
[2025-03-17] MEDS: Lactated Ringers 1,000 ML 80 ML IV (07:51)
--- NOTE | 2025-03-17 08:09 | W.ANESPRE ---
General Info Date of Service Date Performed: 03/17/25 Height: 5 ft 5 in Weight: 90.7 kg Body Mass Index (BMI): 33.3 Surgical Procedure: Operation Date: 03/17/25 09:35 Proposed Procedure Side Surgeon p Colonoscopy/Gastroscopy Charissa Bradshaw MD Actual Procedure Side Surgeon p Colonoscopy/Gastroscopy Not Applicable Charissa Bradshaw MD Meds Allergies and Home Medications Allergies Allergy/AdvReac Type Severity Reaction Status Date / Time amoxicillin Allergy Mild Skin Rash Verified 03/17/25 07:48 Penicillins Allergy Mild Skin Rash Verified 03/17/25 07:48 metronidazole AdvReac Nausea Unverified 03/17/25 07:48 Home Medication ?Medication ?Instructions ?Recorded levonorgestrel 20.4 mcg/24 hr (up 1 device intrauterine ONCE 10/25/24 to 8 yrs) 52 mg intrauterine device (Liletta) methylphenidate HCl 20 mg tablet 20 mg PO DAILY 11/18/24 (Ritalin) cetirizine 10 mg tablet 10 mg PO DAILY 03/15/25 Current Visit Medications: Current Medications Generic Name Dose Route Start Last Admin Trade Name Ryneq PRN Reason Stop Dose Admin Ringer's Solution 1,000 mls @ 80 mls/hr 03/17/25 06:00 03/17/25 07:51 IV 04/15/25 23:59 80 mls/hr INFUSION KRISTEN Administration IV Miscellaneous Supplies 1 each 03/17/25 06:00 Iv Access IV 04/15/25 23:59 DIRECTED KRISTEN Sodium Biphosphate/Sodium Phosphate 0 ml 03/17/25 06:00 Na Phosphate Enema-Adult 133 Ml Btl WA 03/17/25 23:59 DIRECTED KRISTEN Sodium Chloride 0 ml 03/17/25 06:00 Normal Saline Flush 10 Ml Syr IV 04/15/25 23:59 PRN PRN Sodium Chloride 0 ml 03/17/25 06:00 Normal Saline 10 Ml Vial IJ 04/15/25 23:59 DIRECTED PRN Sterile Water 0 ml 03/17/25 06:00 Water,Injection,Sterile 10 Ml Vial IJ 04/15/25 23:59 DIRECTED PRN PFSH Active Problems Active Problems: Problem Status Onset Code IgG Gliadin antibody positive Acute R76.8 Helicobacter pylori stool test positive Acute A04.8 Melena Acute K92.1 Epigastric abdominal pain Acute R10.13 Stomach upset Acute K30 Burping Acute R14.2 Alternating constipation and diarrhea Acute R19.8 Medical History Medical History Family history of ulcerative colitis Autoimmune vasculitis History of autoimmune disease IUD surveillance (~09/2024) Edwin inserted at [facility] Surgical History Surgical History Hx of cholecystectomy H/O breast surgery Implants and then implant removal H/O tubal ligation H/O dilation and curettage Jun 2024 at [place] due to heavy bleeding, polyp, endo stripe thickened Tobacco Smoking/Tobacco Use Status: Never Passive smoking exposure: No Second hand exposure: No Alcohol Alcohol Intake: never Substance Use Substance use: Occasionally Substance use type: marijuana Details: smoked marijuana 8/6 PM Prental History History 4 Para 3 Hx # Term Pregnancies Multiple births Hx # Pregnancies Ectopic pregnancies AB induced Hx Number of Living Children AB spontaneous 1 Past Pregnancies Del. Date GA/Weeks # Preg Succ Route Wgt Sex Labor Lgth Anesthesia Location Prov Complic 09/20/03 35 No Yes vaginal 2636.506 g Female 11/11/05 39 No Yes vaginal 3316.894 g Female 06/05/20 39 No Yes vaginal 3543.69 g Male Vital Signs and Lab Results Vital Signs Most Recent Vital Signs in EMR: Most Recent Vital Signs Temp Pulse Resp BP Pulse Ox 36.2 C L 74 16 114/94 H 98 03/17/25 07:44 03/17/25 07:44 03/17/25 07:44 03/17/25 07:44 03/17/25 07:44 Point of Care Results Point of Care Results: POC- Test(urine) Negative 03/17/25 07:53 Anesthesia Assessment and Plan Anesthesia History Personal History: Other Family History: No Family History of Anesthesia Complications Exercise Tolerance Exercise Tolerance: Metabolic Equivalents>4 Pertinent Negatives Pertinent Negatives: No Symptoms of GERD Cardiac & Pulmonary Exam Cardiac Exam: Normal S1/S2 Heart Sounds Pulmonary Exam: Clear Bilateral Breath Sounds Implantable Cardiac Device Does patient have a Pacemaker or an ICD?: No Airway Exam Known Difficult Airway: No Mallampati Class: 2 Mouth Opening: Normal (> 3cm) Thyromental Distance: Greater than 3 cm Neck Range of Motion: Full ROM Neck Circumference: Normal Teeth Condition: Normal Dentition ASA Classification ASA Score: ASA 2 Emergency Case?: No NPO Status NPO Status: NPO Clears >2 hours, Solids >8 hours Status Status: Negative HCG Anesthesia Plan Resuscitation Status: Full Code Anesthesia Technique: General Anesthesia Airway Planned: Natural Airway Monitors Used: Standard Monitors
[2025-03-17 08:10] VITALS: BMI 33.3
--- NOTE | 2025-03-17 08:10 | W.PM.DSUDISC ---
Date of service: 03/17/25 Discharge Plan Disposition Patient Disposition: Home Condition: Stable Discharge Details Attending Provider: Charissa Bradshaw Primary Care Provider: Elisha Valdez Home Meds and New Rx's Prescriptions: New pantoprazole 40 mg tablet,delayed release (DR/EC) 40 mg PO DAILY Qty: 30 2RF Continued Liletta 20.4 mcg/24 hr (8 yrs) 52 mg intrauterine device 1 device intrauterine ONCE Rx Instructions: as a single dose methylphenidate HCl [Ritalin] 20 mg tablet 20 mg PO DAILY cetirizine 10 mg tablet 10 mg PO DAILY Patient Comments: TAKE 1 TABLET BY MOUTH ONCE DAILY Discharge Instructions Stand Alone Forms: Anesthesia Discharge Inst., DSU Post EGD Instructions, Colonoscopy Post Instructions, Press [place]arrell (DSU) Activity:: Activity as Tolerated Diet:: As Tolerated Discharge Orders Discharge Orders: Discharge Order (Routine); Ordered 03/17/25 Ordered By: Charissa Bradshaw DS: Diagnosis Discharge Diagnosis (1) Alternating constipation and diarrhea: Status: Acute Asessment and Plan: Normal colonoscopy. No cause for symptoms seen on lower endoscopy. Follow up EGD and colonoscopy biopsies in office. Next screening colonoscopy will be due in 10 years. (2) Epigastric abdominal pain: Status: Acute Asessment and Plan: Mild to moderate esophagitis. No ulcer or major findings otherwise. Duodenum, antral and esophageal biopsies will determine next steps in care. recommend new acid ramiro, prescription sent. Take it faithfully once a day. Office follow up on MARCH 30 AT 11:30AM. (3) Melena: Status: Acute (4) Helicobacter pylori stool test positive: Status: Acute (5) IgG Gliadin antibody positive: Status: Acute
--- NOTE | 2025-03-17 08:22 | BOWEL_PTH ---
PATIENT: Jonathon Hall LOC: [facility] U#:[id number] AGE/SX: 40/F ROOM: RE03/17/[address]: Charissa Bradshaw MD : 1985 BED: DIS: 03/17/2025 SPEC #: [id number] RECD: 03/17/25 13:07 STATUS: LEONEL REBranden #: [id number] SANDOVAL: 03/17/25 08:[address]: Charissa Bradshaw DEPT: Surgical Specimen RECD BY: Tari Machuca ENTERED: 03/17/25 13:09 SP TYPE: Bowel OTHR DR: Elisha Valdez Tissues: 1 - BIOPSY BOWEL 2 - STOMACH BIOPSY 3 - ESOPHAGUS BIOPSY 4 - BIOPSY BOWEL 5 - BIOPSY BOWEL 6 - BIOPSY BOWEL 7 - BIOPSY BOWEL 8 - BIOPSY BOWEL Procedures: GROSS AND MICRO LEVEL 4 Comments: [id number]
--- NOTE | 2025-03-17 08:27 | W.PM.ENDDOP ---
Date of service: 03/17/25 Time of Service: 08:27 Endoscopy Report DATE OF PROCEDURE: 03/17/25 PRE-OP DIAGNOSIS: epigastric pain, melena, anti-gliadin antibody positive POST-OP DIAGNOSIS: same (Esophagitis) PROCEDURE: EGD with biopsy ANESTHESIA TYPE: MAC ESTIMATED BLOOD LOSS: 5 PATHOLOGY: other (1. duodenum biopsy. 2. antrum biopsy. 3. distal esophagus biopsy) COMPLICATIONS: None DISPOSITION: same day PROCEDURE DESCRIPTION: Lubricated endoscope was passed through a bite block into the second portion of the duodenum. The endoscope was withdrawn and the duodenum stomach and esophageal mucosa examined. The duodenum appeared normal. There is no inflammation or ulceration or erosion. The antrum appears normal. The fundus appears normal with 2 benign 3 mm fundic gland polyps. The cardia appears normal and there is no evidence of hiatal hernia upon retroflexion. The distal esophagus shows evidence of chronic inflammation without ulceration varices or candidiasis. The Z-line is regular and there is no evidence of Mcdowell's esophagus. Remainder of the esophagus appears normal Cold forceps biopsies obtained from the duodenum the antrum and the distal esophagus for microscopic evaluation for celiac sprue, H. pylori, esophagitis. The upper digestive system was desufflated and the endoscope withdrawn. No complications. Assessment and plan: Mild to moderate esophagitis. No ulcer or major findings otherwise. Duuodenum, antral and esophageal biopsies will determine next steps in care. recommend PPI daily. Office follow up in 2-4 weeks.
--- NOTE | 2025-03-17 08:54 | W.COLOREPORT ---
Date of service: 03/17/25 Time of Service: 08:54 Colonoscopy Report Date of procedure: 03/17/25 Pre-op diagnosis general: melena, alternating diarrhea/constipation, epigastric pain, antigliadin Ab+ Post-op diagnosis procedure note: same (Normal colonoscopy) Procedure: Colonoscopy with biopsy Surgeon: Charissa Bradshaw Anesthesia Type: MAC Estimated blood loss (mL): 2 Pathology: other (1. Terminal ileum. 2. Ascending colon. 3. transverse colon. 4. descending colon. 5. rectum biopsy) Complications: None Disposition: same day Prep: Miralax/Dulcolax (Excellent) Procedure Description: Informed consent was obtained and the patient was taken to the procedure area. The patient was placed in left lateral decubitus position on the procedure table. Timeout was performed. Anesthesia was induced. A lubricated colonoscope was inserted through the anus and passed to the cecum. The cecum was identified by the ileocecal valve and the appendiceal orifice. The scope was then slowly withdrawn and the colonic and rectal mucosa examined. Terminal ileum intubated and examined. It appears normal. Normal colon and rectum. There are no colon or rectal mass lesions, polyps, AVMs. There is no inflammatory change. No diverticulosis was seen. Cold forceps biopsies obtained for evaluation for microscopic colitis. Biopsies obtained from terminal ileum, ascending colon, transverse colon, descending colon and rectum. The scope was retroflexed in the anorectal junction examined. Uncomplicated internal hemorrhoids present. Assessment and plan; Normal colonoscopy. No cause for symptoms seen on lower endoscopy. Follow up EGD and colonoscopy biopsies in office. Next screening colonoscopy will be due in 10 years.
[2025-03-17 08:58] VITALS: BP 110/68; PULSE 80; RESP 16; TEMP 36.3; O2SAT 99
--- NOTE | 2025-03-17 09:14 | W.ANESPOSTOP ---
Postoperative Evaluation Date, Time and Location Date Performed: 03/17/25 Time Performed: 09:14 Patient Location: Day Surgery Unit Vital Signs Most Recent Imported Vital Signs: Most Recent Vital Signs Temp Pulse Resp BP Pulse Ox 36.3 C L 80 16 110/68 99 03/17/25 08:58 03/17/25 08:58 03/17/25 08:58 03/17/25 08:58 03/17/25 08:58 Pain Score Most Recent Pain Score: Most Recent Pain Score Pain Level 0 03/17/25 08:58 Assessment Mental Status: Awake (Alert & Oriented to Patient Baseline) Airway and Respiratory Function: Patent airway with normal (patient baseline) respiratory exam Cardiovascular Function: Hemodynamically Stable Hydration Status: Adequately Hydrated Nausea & Vomiting: No Nausea or Vomiting Pain: Pt. Denies Any Pain Peripheral Nerve Block: Patient did not receive a nerve block
[2025-03-17 09:38] VITALS: BP 107/72; PULSE 66; RESP 16; TEMP 36; O2SAT 100
== END 2025-03-17 09:51 | disposition home or self-care (01) ==
LOC: SUR 07:32
PROVIDERS: PCP Naturopath; Visit Provider Surgery
PROC: (CPT 45380; principal; 2025-03-17 09:30)
DX: R19.8 Other specified symptoms and signs involving the digestive system and abdomen (principal); R10.13 Epigastric pain; K92.1 Melena; A04.8 Other specified bacterial intestinal infections; R76.8 Other specified abnormal immunological findings in serum; K21.00 Gastro-esophageal reflux disease with esophagitis, without bleeding
CPT/HCPCS: 45380; 43239; 88305; J2003; J2704

== ENCOUNTER 2025-03-30 12:20 | Outpatient (CLI) | payer MEDICAID, SELFPAY | END 2025-03-30 12:21 | disposition home or self-care (01) | LOC: LBO 12:21 | PROVIDERS: PCP Naturopath; Visit Provider Surgery | DX: R76.8 Other specified abnormal immunological findings in serum (principal); R19.8 Other specified symptoms and signs involving the digestive system and abdomen | CPT/HCPCS: 36415; 82784; 83516 ==

== ENCOUNTER 2025-04-26 09:46 | Outpatient (REF) | payer MEDICAID, SELFPAY | END 2025-04-26 09:47 | disposition home or self-care (01) | LOC: LBN 09:46 | PROVIDERS: PCP Naturopath; Visit Provider Nurse Practitioner Women's Health | DX: N89.8 Other specified noninflammatory disorders of vagina (principal) | CPT/HCPCS: 87480; 87510; 87660 ==